=== PATIENT | female | born 1935 | race Caucasian/White ===

== ENCOUNTER → 2017-06-13 12:13 | Outpatient (CLI) | payer MEDICARE, SELFPAY ==
--- NOTE | 2017-06-12 | EGD_PTH ---
PATIENT: CAMILO SRIVASTAVA [facility] U#:[id number] AGE/SX: 89/F ROOM: RE06/13/[address]: Dr. Julio Cohen MD : 1935 BED: DIS: SPEC #: [id number] RECD: 06/13/17 12:06 STATUS: FELICITY OLVIN #: [id number] MARKO: 06/12/17 00:[address]: Julio Cohen DEPT: SURGICAL PATHOLOGY RECD BY: Colt Sanchez ENTERED: 06/13/17 13:50 SP TYPE: EGD BIOPSY OT DR: Dr. Muna Mims MD Tissues: A - Gastric mucous membrane B - Esophageal mucous membrane Procedures: Surgery Specimen Level IV HEADER OPERATION: EGD with biopsy PRE-OP DIAGNOSIS: K30, K21.9 TISSUE SUBMITTED: A ? Antral biopsy H/H, B ? Distal esophageal biopsy MICROSCOPIC DIAGNOSIS A. Gastric antrum, biopsy: Gastritis. B. Distal esophagus, biopsy: Gastroesophageal junction mucosa with chronic inflammation. No evidence of dysplasia. AM:bonifacio 06/14/17 COMMENT A. The results of immunohistochemistry for Helicobacter pylori will be reported separately ([id number]). MICROSCOPIC DESCRIPTION Slides are reviewed. A. Sections show small collections and groups of plasma cells in the mucosa. Active inflammation is not present. These findings are consistent with mild chronic gastritis. GROSS DESCRIPTION A - Received in fixative is one container labeled with the patient's name and designated antral biopsy. The specimen consists of two irregular fragments of light mott soft tissue that in aggregate measure 0.5 x 0.3 x 0.1 cm. The specimen is totally submitted in one cassette. B - Received in fixative is one container labeled with the patient's name and designated distal esophagus biopsy. The specimen consists of one irregular fragment of light mott soft tissue that measures 0.4 x 0.3 x <0.1 cm. The specimen is totally submitted in one cassette. / AM:bonifacio 06/13/17 TC:3 CPT: 18063 x2
--- NOTE | 2017-06-12 | IMM_PTH ---
PATIENT: CAMILO SRIVASTAVA LOC: [facility] U#:[id number] AGE/SX: 89/F ROOM: RE06/13/[address]: Dr. Julio Cohen MD : 1935 BED: DIS: SPEC #: [id number] RECD: 06/14/17 11:14 STATUS: FELICITY REWard #: [id number] MARKO: 06/12/17 00:[address]: Julio Cohen DEPT: IMMUNOHISTOCHEMISTRY RECD BY: Edwina Reyes ENTERED: 06/14/17 11:14 SP TYPE: IMMUNO OTHR DR: Dr. Muna Mims MD Tissues: A - Stomach, NOS Procedures: H Pylori (initial) PHYSICIAN & INSTITUTION [place] [id number] SPECIMEN INFORMATION: Tissue Source: A ? Antral biopsy Clinical Info: K30, K21.9 Specimen Number: [id number] CPT code: 24237 METHODOLOGY: Deparaffinized sections of prefer/formalin-fixed tissue or PAP/DQ stained slides are incubated with monoclonal/polyclonal antibodies/oligonucleotide probes. Localization is made via biotin free immunoperoxidase method. Appropriate controls are performed and reacted as expected. Results on target cell population are indicated in the following table: RESULTS: ANTIBODY / CLONE RESULT Block A H Pylori (polyclonal) negative These tests were developed and their performance characteristics determined by [facility]. They may not have been cleared or approved by the U.S. Food and Drug Administration. The FDA has determined that such clearance or approval is not necessary. INTERPRETATION: A. Antral biopsy: Negative for Helicobacter pylori organisms. AM:bonifacio 06/15/17
== END ==
PROVIDERS: Family Provider Internal Medicine; PCP Internal Medicine; Visit Provider Internal Medicine Gastroenterology
DX: K30 Functional dyspepsia (principal); K21.9 Gastro-esophageal reflux disease without esophagitis
CPT/HCPCS: 88305; 88342

== ENCOUNTER → 2017-08-04 17:28 | Outpatient (CLI) | payer MEDICARE, SELFPAY | PROVIDERS: Visit Provider Otolaryngology | DX: J32.9 Chronic sinusitis, unspecified (principal) | CPT/HCPCS: 87070; 87205 ==

== ENCOUNTER → 2019-02-06 08:34 | Outpatient (CLI) | payer MEDICARE, SELFPAY ==
--- NOTE | 2019-02-06 13:53 | NEURO ---
NCS and/or EMG Patient Report DATE OF SERVICE: 02/06/19 Melanie Zavala is an 83-year-old female presents for electrodiagnostic testing of the lower limbs. She has complaints of numbness in the feet as well as low back pain radiating into the right lower limb. Electrodiagnostic findings: Peroneal motor nerve demonstrates normal distal latency, amplitude and conduction velocity on the right side. Left common peroneal nerve damage there is normal distal latency with normal conduction velocity. There is significant reduction of left peroneal amplitude compared to the right side. Tibial motor responses within normal limits bilaterally. Prolonged sural latency is noted bilaterally. Absent left superficial superficial peroneal response on needle EMG, all muscles tested in the lower limb showed no evidence of denervation with normal motor unit action potentials. No denervation noted in the lumbar paraspinals. Electrodiagnostic impression: This is an abnormal study in the lower limbs. 1. Electrodiagnostic findings suggestive of peripheral polyneuropathy, with primarily sensory involvement. 2. No electrodiagnostic evidence is noted for lumbosacral radiculopathy. If there are any further questions, please do not hesitate to contact me
== END ==
PROVIDERS: Family Provider Internal Medicine; PCP Internal Medicine
DX: G62.9 Polyneuropathy, unspecified (principal); R20.0 Anesthesia of skin; R20.2 Paresthesia of skin
CPT/HCPCS: 95886; 95912

== ENCOUNTER 2019-08-19 21:50 | Inpatient (IN) | payer MEDICARE, SELFPAY ==
[2019-08-19 21:51] VITALS: BP 172/114; PULSE 89; RESP 18; TEMP 37.1; O2SAT 97; BMI 25.6
--- NOTE | 2019-08-19 21:55 | EKG12_ITS ---
Test Reason : DYSRHYTHMIA Blood Pressure : / mmHG Vent. Rate : 085 BPM Atrial Rate : 085 BPM P-R Int : 190 ms QRS Dur : 086 ms QT Int : 358 ms P-R-T Axes : 058 052 036 degrees QTc Int : 426 ms Normal sinus rhythm Septal [place], age undetermined, cannot be excluded Confirmed by CRISTOFER SOTO, JUSTINA ([id number]), editor index NATE BERNARD ([id number]) on 08/21/2019 9:40:17 AM Referred By: ROULA Confirmed By:JUSTINA CLEVELAND MD
--- NOTE | 2019-08-19 21:57 | ED.VIS.CHEST ---
History of Present Illness Chief Complaint: Chest Pain Informant: Patient, EMS Onset: Hours - 2 Activity at onset: Rest - sitting, watching the news on TV after walking to and from a friend's house Timing: Continuous Quality: Pain Location: Substernal - w/ radiation to both arms Current Severity: Gone Maximum Severity: Severe Worsened By: Nothing Relieved By: - - Adenosine 6mg IV given by EMS -- it converted her Associated Symptoms: Diaphoresis, Lightheadedness - without near-syncope or LOC. Negative for: Nausea, Vomiting, Dyspnea, Cough, Palpitations Narrative: Patient lives alone and had acute onset of symptoms about 2 hours ago, chest pain and feeling shaky, she called EMS and they evaluated her, they performed an EKG that showed rapid A. fib and gave the patient adenosine 6 mg after the established IV access, this resulted in cardioversion and resolution of all of her symptoms. She now is asymptomatic except for feeling a little tired. She has never had this happen before does not have a history of A. fib that she knows of. Her scientific informatics project leader Dr. Foss retired and she does not have a new one yet. Her PCP also retired, who was Dr. Muna Mims. She last had a stent over 10 years ago, and is on aspirin and Plavix as a result. She denies any recent illness. 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 No recent surgery, hospitalization, immobilization. - Past Medical History (1) CAD (coronary artery disease) Status: Chronic (2) HTN (hypertension) Status: Chronic (3) Hyperlipidemia Status: Chronic Past Medical History - Allergies and Home Meds Allergies/Adverse Reactions: Allergies meperidine [From Demerol] Adverse Reaction (Verified 08/19/19 21:51) Nausea Primary Care Physician: Gladys Pickett MD [Primary Care Provider] - Surgical History: angioplasty - cardiac stent, last placed circa 2006 Lives: Alone Smoking Status: Never smoker Review of Systems General: Reports: Malaise - and shaky all over, Sweats. Denies: Chills, Fever Eyes: Denies: Visual changes - bilaterally, Diplopia ENT: Denies: Bilateral ear pain, Rhinorrhea, Sore throat Cardiovascular: Reports: Chest pain. Denies: Palpitations, Heart racing Respiratory: Denies: Dyspnea, Cough, Dyspnea on exertion Gastrointestinal: Denies: Abdominal pain, Nausea, Vomiting, Diarrhea, Melena, Hematochezia Genitourinary: Denies: Dysuria, Hematuria, Frequency Musculoskeletal: Reports: Extremity Pain - BUE, resolved now. Denies: Neck pain, Back pain, Swelling Skin: Denies: Rash, Wounds Neurological: Denies: Headache, Weakness, Numbness Physical Exam Vital Signs/Narrative: Vital Signs Temp Pulse Resp BP Pulse Ox 08/19/19 21:51 98.7 F 89 18 172/114 H 97 Inital Vital Signs reviewed: Yes General: Well nourished, Well developed, No Acute Distress Head: Normocephalic, Atraumatic Eyes: Perrl, EOMI ENT: Moist mucous membranes, No rhinorrhea Neck: Supple, Nontender, No JVD Cardiovascular: Regular rate, Regular rhythm, No murmurs. Negative for: Tachycardia Respiratory: No distress, CTA bilaterally, Chest nontender Abdomen: Soft, Nontender, Nondistended, Normal bowel sounds Back: Nontender, Normal Inspection Extremities: Nontender, No edema. Negative for: Calf Tenderness Skin: Normal color, No rash, No Trauma Neurological: Alert, Oriented x3, Cranial nerves II-XII grossly intact, Normal Strength, Normal Sensation Psychological: Normal affect, Normal Mood Diagnostic/Tx/Re-eval Impressions Chest X-Ray 08/19/19 22:18 IMPRESSION: No acute cardiopulmonary pathology Electronically Signed: Balbir Bell MD at 22:36 EDT , Service support , 08/19/19 22:18 Chest 1 View (Portable) [RAD] Stat Laboratory Results 08/19/19 08/19/19 22:00 22:00 WBC 7.4 RBC 4.63 Hgb 14.0 Hct 42.5 MCV 91.8 MCH 30.2 MCHC 32.9 RDW Std Deviation 46.0 H RDW Coeff of Brian 13.6 Plt Count 239 MPV 9.3 Immature Gran % (Auto) 0.500 Neut % (Auto) 62.0 Lymph % (Auto) 28.0 [place] % (Auto) 6.1 Eos % (Auto) 3.1 Baso % (Auto) 0.3 Absolute Neuts (auto) 4.6 Absolute Lymphs (auto) 2.08 Nucleated RBC % 0 Sodium 136 Potassium 3.3 L Chloride 102 Carbon Dioxide 26.0 Anion Gap 8 BUN 18 Creatinine 0.82 Estim Creat Clear Calc 45.68 Est GFR (MDRD) Af Amer 85 Est GFR (MDRD) Non-Af 71 BUN/Creatinine Ratio 21.9 H Glucose 160 H Calcium 9.1 Troponin I 0.098 H - Rhythm Strip Rhythm Strip: Sinus Rhythm Rate: 85 Ectopy: None - EKG Initial EKG Interpretation: Sinus Rhythm, No Acute Injury Pattern - Normal EKG Prior: No Prior Treatment: Aspirin Repeat Eval: Pain Free BOBBY Risk: Age >/= 65, >/= 3RF, H/O CAD, ASA within 7 days, Elevated Enzymes Score: 5 - Medical Decision Making 2 different EMS EKGs were reviewed. The first showed rapid A. fib with no acute injury pattern, the second showed sinus rhythm with a PVC and no acute injury pattern. Paramedics stated that the second 1 was performed after they gave adenosine 6 mg. I discussed with the paramedics and told them that was technically the wrong medication to give, other protocols call for giving it for a narrow complex tachycardia, which technically the patient did have. It is unknown why it resulted in cardioversion, possibilities include the adenosine causing the patient to have a vagal reaction, which in turn caused her to cardiovert, or that her initial rhythm was actually AVNRT intermixed with ectopy. She remained in a sinus rhythm and asymptomatic in the emergency department. The plan is for admission to PCU for continued monitoring and possibly provocative testing, possibly cardiac consultation. She did have a slightly depressed potassium level, she was given some potassium prior to admission. ED Disposition - Plan for ED Patient: Disposition: Acute Care Hospital [facility] Diagnosis: Chest pain, Atrial fibrillation status post cardioversion, Hypokalemia Referrals: Gladys Pickett MD [Primary Care Provider] -
--- NOTE | 2019-08-19 22:07 | ED.RN ---
[facility] ELBA PISANO: [id number]
[2019-08-19 22:09] LABS: Absolute Lymphocyte Count 2.08 X10^3/uL (0.83-4.51); Absolute Neutrophil Count 4.6 X10^3/uL (2.0-7.7); Basophil# 0.02 X10^3/uL; Basophil% 0.3 % (0-1); Eosinophil# 0.23 X10^3/uL; Eosinophils% 3.1 % (0-5); Hematocrit 42.5 % (37-47); Lymphocyte # 2.08 X10^3/ul (4.0); Mean Corp Hgb Conc 32.9 g/dL (32-36); Mean Corpuscular Hgb 30.2 pg (27.0-32.0); Mean Corpuscular Volume 91.8 fL (81-99); Mean Platelet Vol. 9.3 fl (6.2-12.0); Monocyte# 0.45 X10^3/uL; Monocyte% 6.1 % (0-10); NRBC Flagged by Analyzer 0 % (0-5); Neutrophil # 4.61 X10^3/uL (2.7-7.7); Platelet Count 239 K/mm3 (150-450); RBC Distribution Width CV 13.6 % (11.6-14.6); Red Blood Count 4.63 M/mm3 (4.2-5.4); White Blood Count 7.4 K/mm3 (4.4-11.0)
--- NOTE | 2019-08-19 22:18 | RAD_ITS ---
STUDY: X-RAY CHEST REASON FOR EXAM: Female, 83 years old. chest pain, Hx HTN, [place] with stents TECHNIQUE: AP portable COMPARISON: None. FINDINGS: The lungs are clear and expanded. There is no demonstrated pleural abnormality. Normal size heart. Normal mediastinum and yolanda. Normal visualized pulmonary arteries. Normal visualized aortic arch and descending thoracic aorta. Dorsal spine demonstrates mild degenerative change. Normal visualized ribs, clavicles, and shoulders. There is no demonstrated abnormality of the visualized soft tissue structures of the upper abdomen. RAD/Chest 1 View (Portable) IMPRESSION: No acute cardiopulmonary pathology Electronically Signed: Balbir Bell MD at 22:36 EDT , Service support ,
[2019-08-19 22:24] VITALS: O2SAT 96
[2019-08-19] MEDS: 0.9% Normal Saline 1,000 ML 150 ML IV (22:24)
[2019-08-19 22:35] LABS: Anion Gap 8 (5-15); BUN 18 mg/dL (7-18); BUN/Creat Ratio 21.9 RATIO (10-20); Calcium,Total 9.1 mg/dL (8.5-10.1); Chloride 102 mmol/L (98-107); Creatinine, Serum 0.82 mg/dL (0.55-1.02); EST Glomerular Filtration Rate 71 mL/min (>60); Est Glom Filt Rate - Afr Amer 85 mL/min (>60); Estimated Creatinine Clearance 45.68 ml/min; Glucose 160 mg/dL (74-106); Potassium 3.3 mmol/L (3.5-5.1); Sodium Level 136 mmol/L (136-145)
--- NOTE | 2019-08-19 23:01 | PCM.HP.STD ---
Problem List (1) CAD (coronary artery disease) Status: Chronic (2) Chest pain Status: Acute (3) Atrial fibrillation status post cardioversion Status: Acute (4) HTN (hypertension) Status: Chronic (5) Hyperlipidemia Status: Chronic (6) Hypokalemia Status: Acute History of Present Illness Date of Admission: 08/19/19 Chief Complaint: chest pain The patient is a 83 year old female patient with a history of coronary artery disease presents to the emergency room via squad due to chest pain and rapid heart rate. The patient states 2 hours prior she began having chest pain at home while at rest and she took her blood pressure and found it to be 170/110 with a heart rate of 100. She called the squad and they came and found her EKG does show atrial fibrillation with RVR with a heart rate nearly 170. EMS gave her 6 mg of adenosine and the patient responded and is now chest pain-free with a normal heart rate. She has a history of 2 stents placed remotely and her last applications intern was Dr. Foss who she last saw in November. Her last cardiac stress test was greater than 2 years ago she will be admitted for cardiac monitoring and ruling out further coronary artery disease Past Medical History Past Medical History (Chronic Problems): Chronic Problems CAD (coronary artery disease) (Chronic) HTN (hypertension) (Chronic) Hyperlipidemia (Chronic) Allergies meperidine [From Demerol] Adverse Reaction (Verified 08/19/19 21:51) Nausea Home Medications: Ambulatory Orders Medication Instructions Recorded Atorvastatin Calcium 40 mg PO DAILY 08/19/19 Clopidogrel Bisulfate [Clopidogrel] 75 mg PO DAILY 08/19/19 Eszopiclone [Lunesta] 1 mg PO QHS PRN PRN 08/19/19 Gabapentin [Neurontin] 300 mg PO BID 08/19/19 Gabapentin [Neurontin] 600 mg PO QHS 08/19/19 Hydrochlorothiazide [Hctz] 25 mg PO DAILY 08/19/19 Losartan Potassium 50 mg PO BID 08/19/19 Metoprolol Tartrate 50 mg PO BID 08/19/19 Pramipexole Di-HCl [Mirapex] 0.25 mg PO BID PRN PRN 08/19/19 Sertraline HCl [Zoloft] 50 mg PO DAILY 08/19/19 Sucralfate [Carafate] 1 tab PO PRN PRN 08/19/19 Tramadol HCl 50 mg PO BID PRN PRN 08/19/19 Surgical History: angioplasty - cardiac stent, last placed circa 2006 Lives: Alone Smoking Status: Never smoker - *Family History Maternal History Items: No pertinent history Review of Systems Constitutional: Denies: Chills, Fever, Weight Change HEENT: Denies: Head Aches, Sinus Congestion, Sinus Drainage Cardiovascular: Reports: Chest Pain. Denies: Palpitations Respiratory: Denies: Cough, Shortness of breath at rest, Sputum production Gastrointestinal: Denies: Abdominal Pain, Nausea, Vomiting Genitourinary: Denies: Dysuria Musculoskeletal: Denies: Joint Pain, Joint Tenderness Skin: Denies: Rash, Wounds Neurological: Denies: Numbness, Tingling, Focal weakness Psychiatric: Denies: Anxiety, Depression, Homicidal Ideations, Suicidal Ideations Hematologic/ Lymphatic: Denies: Easy Bruising, Easy Bleeding VTE Information - Inpt Only VTE Present on Admission: No VTE Mechan Device Prophylaxis: None VTE Pharm Prophylaxis ordered?: Yes Patient Problems: Active and Suspected Problems Chest pain (Acute) Atrial fibrillation status post cardioversion (Acute) Hypokalemia (Acute) - Physical Exam Vitals/I&O's: Vital Signs Temp Pulse Resp BP Pulse Ox 98.7 F 89 18 172/114 H 96 08/19/19 21:51 08/19/19 21:51 08/19/19 21:51 08/19/19 21:51 08/19/19 22:24 Oxygen Delivery Method Room Air Weight: 149 lb 4.047 oz Body Mass Index (BMI) 25.6 General: Alert, Oriented x3, Cooperative HEENT: Atraumatic, Normocephalic Neck: Supple Lungs: Clear to auscultation, Normal air movement, No rhonchi, No wheeze, No rales Cardiovascular: Regular rate, Normal S1, Normal S2, No murmurs Abdomen: Bowel Sounds Present, Soft, Non Tender Extremities: No edema Skin: No rashes, No breakdown Musculoskeletal: No Tenderness to Palpation of Joints or Extremities Neurological: Neuro grossly intact Psych/Mental Status: Normal Affect, Appropriate Laboratory Results 08/19/19 22:00: WBC 7.4, RBC 4.63, Hgb 14.0, Hct 42.5, MCV 91.8, MCH 30.2, MCHC 32.9, RDW Std Deviation 46.0 H, RDW Coeff of Brian 13.6, Plt Count 239, MPV 9.3, Immature Gran % (Auto) 0.500, Neut % (Auto) 62.0, Lymph % (Auto) 28.0, [place] % (Auto) 6.1, Eos % (Auto) 3.1, Baso % (Auto) 0.3, Absolute Neuts (auto) 4.6, Absolute Lymphs (auto) 2.08, Nucleated RBC % 0 08/19/19 22:00: Sodium 136, Potassium 3.3 L, Chloride 102, Carbon Dioxide 26.0, Anion Gap 8, BUN 18, Creatinine 0.82, Estim Creat Clear Calc 45.68, Est GFR (MDRD) Af Amer 85, Est GFR (MDRD) Non-Af 71, BUN/Creatinine Ratio 21.9 H, Glucose 160 H, Calcium 9.1, Troponin I 0.098 H Current Medications Sodium Chloride () 1,000 mls @ 150 mls/hr IV .Q6H40M [facility] Last Admin: 08/19/19 22:24 Dose: 150 mls/hr Documented by: Assessment/Plan All Active Problems Chest pain (Acute) Atrial fibrillation status post cardioversion (Acute) Hypokalemia (Acute) Chronic Problems CAD (coronary artery disease) (Chronic) HTN (hypertension) (Chronic) Hyperlipidemia (Chronic) Plan 1. Chest pain rule out CT?morphine, oxygen, nitroglycerin, aspirin per routine protocol, set up nuclear exercise stress test in the a.m. if unable to proceed on treadmill she will be changed to pharmacologic stress test. 2. Atrial fibrillation with RVR?this converted with adenosine we will continue to monitor on the progressive care unit 3. Hypertension?continue home medications 4. Hyperlipidemia?continue statin 5. DVT prophylaxis?low molecular weight heparin 6. Insomnia?continue sleeping pill from home Inpatient E&M: [id number] Init Hosp L3
[2019-08-19 23:33] VITALS: BP 114/86; PULSE 68; RESP 16; TEMP 36.7; O2SAT 95
[2019-08-19 23:50] VITALS: BP 144/71; PULSE 70; RESP 16; TEMP 36.7; O2SAT 99
[2019-08-19 23:57] VITALS: PULSE 64
[2019-08-20] VITALS (20 sets, daily range): BP systolic 120–170; BP diastolic 56–105; PULSE 56–75; RESP 12–18; TEMP 36.4–36.7; O2SAT 93–97; BMI 25.3
[2019-08-20] MEDS: Sucralfate 1 GM Tablet PO ×2 (01:20→16:04)
[2019-08-20] MEDS: Zolpidem Tartrate 5 MG Tablet PO ×2 (01:20→22:30)
--- NOTE | 2019-08-20 01:22 | EKG12_ITS ---
Test Reason : CP ADMISSION Blood Pressure : / mmHG Vent. Rate : 060 BPM Atrial Rate : 060 BPM P-R Int : 168 ms QRS Dur : 088 ms QT Int : 414 ms P-R-T Axes : 059 039 013 degrees QTc Int : 414 ms Normal sinus rhythm Nonspecific T wave abnormality Confirmed by CRISTOFER SOTO, JUSTINA ([id number]), editor index NATE BERNARD ([id number]) on 08/21/2019 9:52:17 AM Referred By: ERIC Confirmed By:JUSTINA CLEVELAND MD
[2019-08-20 04:46] LABS: Absolute Lymphocyte Count 2.27 X10^3/uL (0.83-4.51); Absolute Neutrophil Count 3.9 X10^3/uL (2.0-7.7); Basophil# 0.02 X10^3/uL; Basophil% 0.3 % (0-1); Eosinophil# 0.26 X10^3/uL; Eosinophils% 3.8 % (0-5); Hematocrit 36.9 % (37-47); Lymphocyte # 2.27 X10^3/ul (4.0); Lymphocyte % 32.8 % (19-41); Mean Corp Hgb Conc 32.5 g/dL (32-36); Mean Corpuscular Hgb 29.8 pg (27.0-32.0); Mean Corpuscular Volume 91.6 fL (81-99); Mean Platelet Vol. 9.4 fl (6.2-12.0); Monocyte# 0.41 X10^3/uL; Monocyte% 5.9 % (0-10); NRBC Flagged by Analyzer 0 % (0-5); Neutrophil # 3.94 X10^3/uL (2.7-7.7); Neutrophil % 56.8 % (47-70); Platelet Count 225 K/mm3 (150-450); RBC Distribution Width CV 13.4 % (11.6-14.6); RBC Distribution Width SD 45.5 fl (35.1-43.9); Red Blood Count 4.03 M/mm3 (4.2-5.4); White Blood Count 6.9 K/mm3 (4.4-11.0)
[2019-08-20 04:57] LABS: Prothrombin Time (Protime)PT. 12.8 SECONDS (11.7-14.9)
[2019-08-20] MEDS: Losartan Potassium 50 MG Tablet PO ×2 (06:22→22:28)
[2019-08-20] MEDS: Aspirin E.C. 81 MG Tablet PO (06:23)
[2019-08-20] MEDS: Metoprolol Tartrate 50 MG Tablet PO ×2 (06:23→22:28)
[2019-08-20] MEDS: Clopidogrel Bisulfate 75 MG Tablet PO (06:23)
[2019-08-20] MEDS: Gabapentin 300 MG Capsule PO ×2 (06:23→14:42)
[2019-08-20 06:35] LABS: ALB/GLOB Ratio 1.1 RATIO (0.9-2.4); AST(SGOT) 28 U/L (15-37); Alanine Aminotransfer ALT/SGPT 24 U/L (13-56); Albumin, Serum 3.4 g/dL (3.2-5.0); Alkaline Phosphatase 89 U/L (45-117); Anion Gap 8 (5-15); BUN 16 mg/dL (7-18); Calcium,Total 8.2 mg/dL (8.5-10.1); Chloride 103 mmol/L (98-107); Cholesterol 124 mg/dL (200); Creatinine, Serum 0.73 mg/dL (0.55-1.02); EST Glomerular Filtration Rate 82 mL/min (>60); Est Glom Filt Rate - Afr Amer 99 mL/min (>60); Estimated Creatinine Clearance 35.88 ml/min; Glucose 94 mg/dL (74-106); High Density Lipoprotein 30 mg/dL; Protein, Total 6.4 g/dL (6.4-8.2); Sodium Level 135 mmol/L (136-145); Triglycerides 246 mg/dL; Very Low Density Lipoprotein 49 mg/dL (5-40)
--- NOTE | 2019-08-20 07:27 | ECHOD_ITS ---
Reason For Study: NSTEMI Procedure This was a 2D Doppler, Color Flow transthoracic echocardiogram. The study was technically difficult. Exam performed portable in patient room. Left Ventricle Normal LV size. Segmental dysfunction with preserved ejection fraction (see wall motion). The estimated ejection fraction is 65 %. Infero-Basal: Hypokinetic. Mid-inferoseptal : Akinetic. Mid- anteroseptal : Hypokinetic. Inferior [place] : Hypokinetic. Septal [place] : Akinetic. Right Ventricle Normal RV size. Normal systolic function. Atria The left atrium is mildly enlarged. Normal right atrium. No doppler evidence for ASD. Mitral Valve There is mild mitral annular calcification. Extension of the mitral annular calcification onto the base of the posterior mitral valve leaflert. Mild focal mitral valve calcification of the anterior leaflet. Moderate (2+) mitral valve insufficiency. Tricuspid Valve Normal tricuspid valve. Mild to moderate (1-2+) tricuspid valve insufficiency. Right ventricular systolic pressure estimated to be 55 mmHg. Aortic Valve Trisinus/trileaflet aortic valve. Normal aortic valve. Pulmonic Valve The pulmonic valve is not well visualized. Trivial pulmonic valve insufficiency. Great Vessels Normal sized aortic root. Pericardium/Pleural No pericardial effusion. MMode/2D Measurements & Calculations LVIDd: 4.0 cm IVSd: 1.0 cm Ao root diam: 2.4 cm LVIDs: 2.6 cm LVPWd: 1.0 cm RVDd: 2.8 cm FS: 34.0 % LAV(MOD-bp): 65.6 ml LVAd ap4: 21.3 cm2 SV(MOD-sp4): 40.4 ml LAV(MOD-bp) Indexed: 39.1 ml/m2 EDV(MOD-sp4): 53.2 ml LAV(MOD-sp2): 64.0 ml EDV(sp4-el): 56.0 ml LAV(MOD-sp4): 66.9 ml LVAs ap4: 9.2 cm2 ESV(MOD-sp4): 12.8 ml ESV(sp4-el): 12.8 ml EF(MOD-sp4): 76.0 % EF(sp4-el): 77.1 % SV(sp4-el): 43.2 ml LA A4 area: 21.2 cm2 LA dimension(2D): 4.4 cm RA A4 area: 11.2 cm2 Time Measurements MV dec time: 0.20 sec Doppler Measurements & Calculations MV E max kishan: 121.2 cm/sec Ao V2 max: 139.8 cm/sec LV V1 max: 122.1 cm/sec MV A max kishan: 68.0 cm/sec Ao max P.8 mmHg LV V1 max P.0 mmHg MV E/A: 1.8 PA V2 max: 84.5 cm/sec PI end-d kishan: 140.3 cm/sec TR max kishan: 362.1 cm/sec TR max P.4 mmHg Interpretation Summary The study was technically difficult. Segmental dysfunction with preserved ejection fraction (see wall motion). The estimated ejection fraction is 65 %. The left atrium is mildly enlarged. There is mild mitral annular calcification. Extension of the mitral annular calcification onto the base of the posterior mitral valve leaflert. Mild focal mitral valve calcification of the anterior leaflet. Moderate (2+) mitral valve insufficiency. Mild to moderate (1-2+) tricuspid valve insufficiency. Trivial pulmonic valve insufficiency. Right ventricular systolic pressure estimated to be 55 mmHg. Transmitral diastolic flow velocities suggest diastolic dysfunction (pseudonormal pattern). Ordering Physician: Dory Augustine Referring Physician: DANIELA REINOSO Performed By: Luanne Rosa, RDCS, RVT
[2019-08-20] MEDS: Sertraline 50 MG Tablet PO (08:56)
[2019-08-20] MEDS: hydroCHLOROthiazide 25 MG Tablet PO (08:56)
--- NOTE | 2019-08-20 10:28 | PCM.CONS.C ---
Problem List (1) NSTEMI (non-ST elevated myocardial infarction) Status: Acute (2) CAD (coronary artery disease) Status: Chronic (3) S/P PTCA (percutaneous transluminal coronary angioplasty) Status: Acute (4) Atrial fibrillation status post cardioversion Status: Acute (5) Hyperlipidemia Status: Chronic (6) HTN (hypertension) Status: Chronic Reason for Consult Date of Consultation: 08/20/19 History of Present Illness: The patient is a 83 year old white female with a past medical history of CAD, PCI, CA, hyperlipidemia, and hypertension who presents for evaluation of findings compatible with an acute non-ST segment elevation CA and paroxysmal atrial fibrillation. She states she has been doing well at home until yesterday evening. She noted chest discomfort that radiated to her left upper extremity and was associated with diaphoresis and the sensation of an elevated heart rate. She denied nausea, emesis, or dyspnea. The EMS was summoned. She was evaluated and had an ECG thought compatible with atrial fibrillation with RVR. She was treated with IV adenosine. Sometime thereafter she had resolution of her cardiac dysrhythmia back to sinus rhythm. The transition from the report of atrial fibrillation to sinus rhythm, and the way of telemetry strips, is unavailable at this time for review. She was evaluated in the emergency department and subsequently placed in the PCU for ongoing evaluation and care. She states she has been resting comfortably. She has been undergoing cardiac enzyme evaluation which has become abnormal compatible with an acute non-ST segment elevation CA. Her ECG demonstrated what appeared to be atrial fibrillation with associated nonspecific ST and T wave changes with subsequent ECG demonstrating sinus rhythm with PVCs with nonspecific ST changes with a subsequent ECG demonstrating sinus rhythm. She states she underwent evaluation and care for her CAD in the . At that time she was told she had an CA but did not receive any revascularization therapy. She notes somewhere between 1999 and 2009 she underwent evaluation for her CAD through the [facility] system. During that timeframe she states she received PCI. The details of her previous cardiovascular history are unknown. 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 She denies any ongoing orthopnea or PND or peripheral pitting edema. There has been no near syncope or syncope. She denies any fever, chills, night sweats, or other associated respiratory related symptoms at this time. States she has been remaining home by herself. [] Past Medical History Allergies/Adverse Reactions: Allergies meperidine [From Demerol] Adverse Reaction (Verified 08/19/19 21:51) Nausea Home Medications: Ambulatory Orders Medication Instructions Recorded Atorvastatin Calcium 40 mg PO DAILY 08/19/19 Clopidogrel Bisulfate [Clopidogrel] 75 mg PO DAILY 08/19/19 Eszopiclone [Lunesta] 1 mg PO QHS PRN PRN 08/19/19 Gabapentin [Neurontin] 300 mg PO BID 08/19/19 Gabapentin [Neurontin] 600 mg PO QHS 08/19/19 Hydrochlorothiazide [Hctz] 25 mg PO DAILY 08/19/19 Losartan Potassium 50 mg PO BID 08/19/19 Metoprolol Tartrate 50 mg PO BID 08/19/19 Pramipexole Di-HCl [Mirapex] 0.25 mg PO BID PRN PRN 08/19/19 Sertraline HCl [Zoloft] 50 mg PO DAILY 08/19/19 Sucralfate [Carafate] 1 tab PO PRN PRN 08/19/19 Tramadol HCl 50 mg PO BID PRN PRN 08/19/19 Past Medical History (Chronic Problems): Chronic Problems CAD (coronary artery disease) (Chronic) HTN (hypertension) (Chronic) Hyperlipidemia (Chronic) Surgical History: angioplasty - cardiac stent, last placed circa 2006 - *Family History Maternal History Items: No pertinent history Lives: Alone Smoking Status: Never smoker Alcohol: None Drugs: None Review of Systems - Review of Systems General: Denies: Fever, Night Sweats, Fatigue Cardiovascular: Reports: Chest Discomfort, Chest Discomfort at Rest, - - Diaphoresis. Denies: Shortness of Breath, Orthopnea, PND, Peripheral Edema, Palpitations, Lightheadedness, Dizziness, Near Syncope, Syncope Respiratory: Denies: Cough, Sputum Production, Hemoptysis Gastrointestinal: Denies: Hematemesis, Hematochezia, Melena Genitourinary: Denies: Dysuria, Hematuria Skin: Denies: Rash Subjectve: This is an 83-year-old white female who appears to be resting comfortably in the supine position at this time in no acute distress. Objective: Vital Signs Temp Pulse Resp BP Pulse Ox 97.8 F 56 L 16 120/58 L 96 08/20/19 05:50 08/20/19 06:39 08/20/19 05:50 08/20/19 05:50 08/20/19 07:50 Oxygen Delivery Method Room Air Weight: 143 lb Body Mass Index (BMI) 25.3 Intake and Output for Last 24 Hours 08/18/19 08/19/19 08/20/19 23:59 23:59 23:59 Intake Total 120 / 120 1120 / 1120 Balance 120 / 120 1120 / 1120 General: Awake, Alert, Oriented x 3, Cooperative, No Acute Distress HEENT: Atraumatic, Normocephalic, PERRL, EOMI, Sclera Non Icteric Oral: Moist Mucosa Neck: Supple, Good ROM, No JVD Lungs: Clear to auscultation Cardiovascular: Regular Rhythm, Normal S1, Normal S2 Vascular: No Carotid Bruits Abdomen: Bowel Sounds Present, Soft, Non Tender Extremities: No Cyanosis, No Clubbing, No edema Neurological: No Focal Motor or Sensory Deficit Psych/Mental Status: Appropriate 08/19/19 22:00: WBC 7.4, RBC 4.63, Hgb 14.0, Hct 42.5, MCV 91.8, MCH 30.2, MCHC 32.9, Plt Count 239, MPV 9.3, Immature Gran % (Auto) 0.500, Neut % (Auto) 62.0, Lymph % (Auto) 28.0, [place] % (Auto) 6.1, Eos % (Auto) 3.1, Baso % (Auto) 0.3, Absolute Neuts (auto) 4.6, Nucleated RBC % 0 08/19/19 22:00: Sodium 136, Potassium 3.3 L, Chloride 102, Carbon Dioxide 26.0, Anion Gap 8, BUN 18, Creatinine 0.82, Est GFR (MDRD) Af Amer 85, Est GFR (MDRD) Non-Af 71, BUN/Creatinine Ratio 21.9 H, Glucose 160 H, Calcium 9.1, Troponin I 0.098 H 08/20/19 00:52: Troponin I 0.803 H* 08/20/19 04:28: WBC 6.9, RBC 4.03 L, Hgb 12.0, Hct 36.9 L, MCV 91.6, MCH 29.8, MCHC 32.5, Plt Count 225, MPV 9.4, Immature Gran % (Auto) 0.400, Neut % (Auto) 56.8, Lymph % (Auto) 32.8, Fleming % (Auto) 5.9, Eos % (Auto) 3.8, Baso % (Auto) 0.3, Absolute Neuts (auto) 3.9, Nucleated RBC % 0 08/20/19 04:28: PT 12.8, INR 1.0 08/20/19 04:28: Sodium 135 L, Potassium 4.0, Chloride 103, Carbon Dioxide 24.0, Anion Gap 8, BUN 16, Creatinine 0.73, Est GFR (MDRD) Af Amer 99, Est GFR (MDRD) Non-Af 82, BUN/Creatinine Ratio 22.0 H, Glucose 94, Calcium 8.2 L, Total Bilirubin 0.30, Troponin I 1.380 H*, Triglycerides 246 H, Cholesterol 124, LDL Cholesterol 45, VLDL Cholesterol 49 H, HDL Cholesterol 30 L Rhythm: Sinus rhythm EKG: As noted above ECHO: Pending CXR: Preliminary evaluation: No acute cardiopulmonary disease process appreciated: Please see official report Assessment/Plan 1. Acute non-ST segment elevation CA The patient presents with clinical symptoms and objective findings compatible with an acute non-ST segment elevation CA. This is superimposed upon a history of CAD and previous CA and previous PCI. Thus far she has had no other explanation for her symptoms or cardiac enzyme findings. At the moment she appears to be symptomatically improved. She will continue to be observed. She will continue medical therapy as deemed appropriate. It has been recommended that she be considered for further evaluation with diagnostic cardiac catheterization. The procedure and risks have been discussed with her. She is agreeable to this approach. 2. CAD status post PCI The patient has a previous history of CAD and PCI. The details are unknown at this time. A request has been made to obtain copies of her previous [facility] cardiovascular records for review. In the interim she will continue evaluation care as noted above. 3. Paroxysmal atrial fibrillation She had an episode of paroxysmal atrial fibrillation. It is unclear whether this was secondary to her acute coronary syndrome event or potentially prior to her acute coronary syndrome event leading to a type II type event. She received IV adenosine. However its unclear that her IV adenosine had any impact on her atrial dysrhythmia. Her atrial dysrhythmia may have spontaneously converted. At the moment she remains in sinus rhythm. She will continue medical management and follow-up as deemed appropriate. 4. Hyperlipidemia She will continue risk factor evaluation care as deemed appropriate. 5. Hypertension Her blood pressure will be followed. Her medicines will be adjusted as needed. Comment: The patient's case was discussed and reviewed with the patient and via telephone with her son-in-law Mervin and her daughter Megan. All parties were in agreement with the aforementioned evaluation and care plan. This note was generated using a voice recognition system and there may be incorrect words, spelling or punctuation that were not noted when reviewing the office note prior to saving. Essential Procedure Criteria Procedure Essential: Yes Criteria Note: On 07/16/2019 the [facility] ([facility]) Public Order signed by [facility] Director Brooklyn Anand M.D., regarding the Management of Non-Essential Surgeries and Procedures for the purpose of preserving Personal Protective Equipment (PPE) and critical hospital capacity and resources within [place] went into effect as of 07/17/2019 at 5:00PM. According to the [facility] Public Order: This action will remain in full force and effect until the State of Emergency declared by the Governor no longer exists or the Director of the [facility] rescinds or modifies this Order.. This [facility] order stated all non-essential or elective surgeries and procedures that utilize PPE should be delayed unless there is undue risk to the current or future health of a patient. After reviewing the aforementioned [facility] Public Order and the patients clinical case, I have determined that the scheduled procedure meets the criteria to go forward. Risk to Patient if Procedure Delayed: Threat of permanent dysfunction of an extremity or organ system - Acute non-ST segment elevation CA
--- NOTE | 2019-08-20 10:43 | PCM.PN.HOSP ---
Patient Problems: Active and Suspected Problems Chest pain (Acute) Atrial fibrillation status post cardioversion (Acute) Hypokalemia (Acute) NSTEMI (non-ST elevated myocardial infarction) (Acute) S/P PTCA (percutaneous transluminal coronary angioplasty) (Acute) Subjective: Patient seen and examined. She was admitted with a complaint of chest pain and rapid heart rate. When EMS arrived at her location, she was found to have A. fib with RVR with heart rate of 170. Even though her heart rhythm was supposedly Afib, she was given adenosine to which she responded, and chest pain also resolved. Troponins peaked at 1.38. She is therefore being managed for non-STEMI. Cardiology is on board and she is to have cardiac cath. Patient had no complaints this morning. Chest pain had resolved. She denied any fever, chills, nausea, vomiting, abdominal, diarrhea or palpitations. Review of systems is otherwise negative. Labs and vitals reviewed. Vitals are significant for HR of 56. Vitals/I&O's: Vital Signs Temp Pulse Resp BP Pulse Ox 97.8 F 56 L 16 120/58 L 96 08/20/19 05:50 08/20/19 06:39 08/20/19 05:50 08/20/19 05:50 08/20/19 07:50 Oxygen Delivery Method Room Air Weight: 143 lb Body Mass Index (BMI) 25.3 Intake and Output for Last 24 Hours 08/18/19 08/19/19 08/20/19 23:59 23:59 23:59 Intake Total 120 / 120 1120 / 1120 Balance 120 / 120 1120 / 1120 General: Alert, Oriented x3, Cooperative HEENT: Atraumatic, PERRLA, EOMI, Normocephalic Oral: Moist Mucosa Neck: Supple, No JVD, Negative Carotid Bruits, No Nodes Lungs: Clear to auscultation, Normal air movement, No rhonchi, No wheeze Cardiovascular: Regular rate, Regular Rhythm, Normal S1, Normal S2, No murmurs Abdomen: Bowel Sounds Present, Soft, Non Tender, Non-Distended, No Hepato-splenomegaly Extremities: No clubbing, No cyanosis, No edema, Capillary Refill Less than 3 Seconds Skin: No rashes, No breakdown Musculoskeletal: No Tenderness to Palpation of Joints or Extremities Lymphatic: Supraclavicular Adenopathy Neurological: Cranial nerves II-XII grossly intact, Neuro grossly intact, Motor Exam 5/5 strength throughout Psych/Mental Status: Normal Affect, Appropriate, Alert and oriented to time, place, person, mood and affect Laboratory Results 08/19/19 22:00: WBC 7.4, RBC 4.63, Hgb 14.0, Hct 42.5, MCV 91.8, MCH 30.2, MCHC 32.9, RDW Std Deviation 46.0 H, RDW Coeff of Brian 13.6, Plt Count 239, MPV 9.3, Immature Gran % (Auto) 0.500, Neut % (Auto) 62.0, Lymph % (Auto) 28.0, [place] % (Auto) 6.1, Eos % (Auto) 3.1, Baso % (Auto) 0.3, Absolute Neuts (auto) 4.6, Absolute Lymphs (auto) 2.08, Nucleated RBC % 0 08/19/19 22:00: Sodium 136, Potassium 3.3 L, Chloride 102, Carbon Dioxide 26.0, Anion Gap 8, BUN 18, Creatinine 0.82, Estim Creat Clear Calc 45.68, Est GFR (MDRD) Af Amer 85, Est GFR (MDRD) Non-Af 71, BUN/Creatinine Ratio 21.9 H, Glucose 160 H, Calcium 9.1, Troponin I 0.098 H 08/20/19 00:52: Troponin I 0.803 H* 08/20/19 04:28: WBC 6.9, RBC 4.03 L, Hgb 12.0, Hct 36.9 L, MCV 91.6, MCH 29.8, MCHC 32.5, RDW Std Deviation 45.5 H, RDW Coeff of Brian 13.4, Plt Count 225, MPV 9.4, Immature Gran % (Auto) 0.400, Neut % (Auto) 56.8, Lymph % (Auto) 32.8, [place] % (Auto) 5.9, Eos % (Auto) 3.8, Baso % (Auto) 0.3, Absolute Neuts (auto) 3.9, Absolute Lymphs (auto) 2.27, Nucleated RBC % 0 08/20/19 04:28: PT 12.8, INR 1.0 08/20/19 04:28: Sodium 135 L, Potassium 4.0, Chloride 103, Carbon Dioxide 24.0, Anion Gap 8, BUN 16, Creatinine 0.73, Estim Creat Clear Calc 35.88, Est GFR (MDRD) Af Amer 99, Est GFR (MDRD) Non-Af 82, BUN/Creatinine Ratio 22.0 H, Glucose 94, Calcium 8.2 L, Total Bilirubin 0.30, AST 28, ALT 24, Alkaline Phosphatase 89, Troponin I 1.380 H*, Total Protein 6.4, Albumin 3.4, Globulin 3.0, Albumin/Globulin Ratio 1.1, Triglycerides 246 H, Cholesterol 124, LDL Cholesterol 45, VLDL Cholesterol 49 H, HDL Cholesterol 30 L Current Medications Aspirin (Ecotrin) 81 mg PO DAILY@0800 [facility] Last Admin: 08/20/19 06:23 Dose: 81 mg Documented by: Atorvastatin Calcium (Lipitor) 40 mg PO DAILY@2200 [facility] Clopidogrel Bisulfate (Plavix) 75 mg PO DAILY [facility] Last Admin: 08/20/19 06:23 Dose: 75 mg Documented by: Enoxaparin Sodium (Lovenox) 40 mg SC DAILY [facility] Last Admin: 08/20/19 08:55 Dose: Not Given Documented by: Gabapentin (Neurontin) 300 mg PO BID@0600,1400 [facility] Last Admin: 08/20/19 06:23 Dose: 300 mg Documented by: Gabapentin (Neurontin) 600 mg PO QHS [facility] Hydrochlorothiazide (Hctz) 25 mg PO DAILY [facility] Last Admin: 08/20/19 08:56 Dose: 25 mg Documented by: Losartan Potassium (Cozaar) 50 mg PO BID [facility] Last Admin: 08/20/19 06:22 Dose: 50 mg Documented by: Metoprolol Tartrate (Lopressor (Beta Florinda)) 50 mg PO BID [facility] Last Admin: 08/20/19 06:23 Dose: 50 mg Documented by: Morphine Sulfate () 2 mg IV Q3H PRN PRN PRN Reason: Pain Score 6-10/10 Nitroglycerin (Nitrostat) 0.4 mg SUBLINGUAL Q5M PRN PRN Reason: CARDIAC/CHEST PAIN Pramipexole Dihydrochloride (Mirapex) 0.25 mg PO BID PRN PRN PRN Reason: SCIATICA Sertraline HCl (Zoloft) 50 mg PO DAILY [facility] Last Admin: 08/20/19 08:56 Dose: 50 mg Documented by: Sodium Chloride () 10 - 40 ml IV UD PRN PRN Reason: SALINE FLUSH Sucralfate (Carafate) 1 gm PO 1HR_ACHS ROBERT Last Admin: 08/20/19 01:20 Dose: 1 gm Documented by: Tramadol HCl (Ultram) 50 mg PO BID PRN PRN PRN Reason: PAIN 1-02/07 Zolpidem Tartrate (Ambien (Generic)) 5 mg PO QHS PRN PRN PRN Reason: for sleep Last Admin: 08/20/19 01:20 Dose: 5 mg Documented by: STROKE Vital Signs/Narrative: Vital Signs Pulse Ox 08/20/19 07:50 96 Medical Necessity - Tobacco Use Smoking Status: Never smoker Assessment/Plan All Active Problems Chest pain (Acute) Atrial fibrillation status post cardioversion (Acute) Hypokalemia (Acute) NSTEMI (non-ST elevated myocardial infarction) (Acute) S/P PTCA (percutaneous transluminal coronary angioplasty) (Acute) 1. Nonstemi troponins trended up to a peak of 1.38 EKG showed no acute ST changes on IV morphine, SL nitroglycerin and PO aspirin. for cardiac cath today. On high intensity statin. On aspirin, Plavix and metoprolol as well as statin. 2. Afib wtih RVR Received adenosine which helped converted sinus rhythm. It is therefore doubtful that she really had A. fib with RVR as this converted with adenosine and so may have been more of a sinus tachycardia. Cardiology on board. On metoprolol 50 mg twice daily. 3. Hypertension: On HCTZ, losartan and metoprolol. 4. Hyperlipidemia: On statin. 5. Insomnia: On Ambien nightly. DVT prophylaxis: Lovenox Inpatient E&M: 60715 [facility] Hosp L3
--- NOTE | 2019-08-20 11:58 | PCA ---
pt off floor
--- NOTE | 2019-08-20 12:56 | CL.I_ITS ---
Patient Name: CAMILO SRIVASTAVA Study Date: 08/20/2019 Performing: Brigida Castro MD Ht: 63 inches 160 cm : 1935 Wt: 143.5 lbs 65 kg Age: 83 Gender: female BSA: 1.68 PROCEDURE(S) PERFORMED [id number] W OR WO PTCA, SINGLE CORONARY ARTERY CLINICAL PROFILE AND CO-MORBIDITIES Indications: Suspected CAD, ACS <= 24 hrs Heart Failure: None Angina Classification Anginal Classification w/in 2 Weeks: CCS IV CAD Presentations: Non-STEMI. CONCLUSIONS Successful PTCA/LIZBETH to oLCx RECOMMENDATIONS Follow up with Dr. Mireya MCCALL Indefinitley Plavix for at least 12 months DESCRIPTION OF PROCEDURE The patient arrived to the procedure lab. The risks and benefits of the procedure as well as a full d escription of our services here and current unavailability of surgical backup were fully explained to the patient and/or their significant other prior to the catheterization. The Timeout was completed, verifying the correct patient and procedure. The patient's procedural site was prepped and draped in the usual fashion. Local anesthetic was given subcutaneously to right radial region with Lidocaine 2% Using a modified Seldinger technique,arterial access was obtained via the right radial artery, a 6Fr sheath was inserted. Left Coronary Artery selective angiography was performed in multiple views usin g a 5 Fr. 4.0 Mckinney catheter. Right Coronary Artery selective angiography was then performed in multi ple views using a 5 Fr. 4.0 Mckinney catheter. Left Ventriculography was performed in AGUILAR projection usi ng a 5 Fr. Pigtail catheter. LV to AO pullback pressures were then recorded.The images were reviewed and options discussed. A decision was then made to proceed with an Intervention, IVUS o r other adjunct procedure. XB 3.0 Guide catheter was inserted and engaged into the LCA. BMW Guide wire was advanced to the C ircumflex. Angiogram performed pre balloon dilatation. 2.5x12 Emerge Balloon catheter was advanced ac ross lesion in the circumflex, ostial. PTCA balloon inflated at 6 atms for 8 secs. PTCA balloon infla lesley at 8 atms for 25 secs. PTCA balloon inflated at 8 atms for 40 secs. 3.5x12 Synergy Drug Eluting s tent was advanced across the lesion in the circumflex, ostial. Angiogram performed pre stent deployme nt. Angiogram performed post stent deployment. 3.5x8 NC Emerge Balloon catheter was inserted post jailyn nt. PTCA balloon inflated at 18 atms for 23 secs. Angiogram performed post balloon dilatation. The arterial sheath was pulled and a TR Band was applied for hemostasis-12cc INTERVENTION INFORMATION LESION SITE: Circumflex (Ostial) Lesion Complexity: High/C, chronic total occlusion: No, lesion at bifurcation: Yes, thrombus present: No, lesion length: 10 mm, culprit lesion: Yes, Previously treated lesion: No, In-stent restenosis: N o Pre Stenosis: 90 % Pre intervention BOBBY flow: 3 PROCEDURE: Drug Eluting Stent with pre and post dilatation Post Stenosis: 0 % Post intervention BOBBY flow: 3 Lesion Devices: Cardinal 6 Fr XB3.0 100cm Guide Catheter Marte .014 BMW [place] Straight 190cm Nicholas Sci EMERGE MR 2.50x12 BALLOON Nicholas Sci Synergy MR LIZBETH 3.50x12 Nicholas Sci NC EMERGE MR 3.50x08 BALLOON COMPLICATIONS No Complications PROCEDURE MEDICATIONS Versed 1 mg IV Fentanyl 50 mcg IV Oxygen: 2 L/min via nasal cannula Heparin diluted in 23cc Heparinized saline. Patient given 10cc IA of this solution. 08/20/2019 11:35: 31 Heparin 4000 unit(s) IV 08/20/2019 12:09:03 Verapamil 2.5mg, Ntg 100mcgs, 2000 units of Heparin diluted in 23cc Heparinized saline. Patient give n 10cc IA of this solution. 08/20/2019 11:35:31 IV Bolus: .9 NaCl 400 ml total 08/20/2019 12:27:15 SUMMARY OF HEMODYNAMIC DATA Time AIR REST ECG 11:03:02 RM AIR REST 11:17:13 AIR REST AO 102/52 (71) SA 11:40:19 LV 109/4, 22 11:47:04 LV 109/5, 21 11:47:11 LV 104/7, 19 11:48:11 LVp 104/2, 19 11:48:17 AOp 100/41 (60) 11:48:22 AO 140/59 (92) 12:13:35 Signed By Brigida Castro MD On 08/20/2019 12:55:25 Brigida Castro MD
--- NOTE | 2019-08-20 13:31 | CL.D_ITS ---
Patient Name: CAMILO SRIVASTAVA Study Date: 08/20/2019 Performing: Kirk Gomes MD Ht: 62.99 inches 160 cm : 1935 Wt: 143.3 lbs 65 kg Age: 83 Gender: female BSA: 1.68 PROCEDURE(S) PERFORMED HY23-MTZ/COR/LV [id number] W OR WO PTCA, SINGLE CORONARY ARTERY CLINICAL PROFILE AND INDICATIONS Indications: Suspected CAD, ACS <= 24 hrs Heart Failure: None Angina Classification Anginal Classification w/in 2 Weeks: CCS IV CAD Presentations: Non-STEMI. CONCLUSIONS Elevated Left Ventricular End Diastolic Pressure Segmented LV systolic dysfunction- Mild LVEF: by LV gram 70 % [place] Multivessel CAD RECOMMENDATIONS Risk factor modification Medical therapy Referred for immediate PCI DESCRIPTION OF PROCEDURE The patient arrived to the procedure lab. The risks and benefits of the procedure as well as a full d escription of our services here and current unavailability of surgical backup were fully explained to the patient and/or their significant other prior to the catheterization. The Timeout was completed, verifying the correct patient and procedure. The patient's procedural site was prepped and draped in the usual fashion. Local anesthetic was given subcutaneously to right radial region with Lidocaine 2% . Using a modified Seldinger technique, arterial access was obtained via the right radial artery, a 6 Fr sheath was inserted. Left Coronary Artery selective angiography was performed in multiple views u sing a 5 Fr. 4.0 [place] catheter. Right Coronary Artery selective angiography was then performed in mu ltiple views using a 5 Fr. 4.0 [place] catheter. Left Ventriculography was performed in AGUILAR projection using a 5 Fr. [place] catheter. LV to AO pullback pressures were then recorded.The arterial sheath was pulled and a TR Band was applied for hemostasis-12cc CORONARY ANGIOGRAPHY DOMINANCE: Left Dominant LEFT HEART ASSESSMENT Left Ventricular Ejection Fraction: by LV Gram 70 % Inferior Apical Akinesis Elevated Left Ventricular End Diastolic Pressure LVEDP: 21 mmHg LEFT MAIN: Mild luminal irregularities LEFT ANTERIOR DESCENDING ARTERY: PROX LAD: Mild luminal irregularities, 25 % Stenosis MID LAD: Previously placed stent is patent with mild luminal irregularities, 25 % Stenosis DIAGONAL 1: Proximal - 75 % Stenosis (small caliber vessel) DIAGONAL 2: Proximal - 25 % Stenosis (small caliber vessel) DIAGONAL 3: Proximal - 25 % Stenosis (small caliber vessel) CIRCUMFLEX ARTERY: OSTIAL CIRC: 85 % Stenosis PROX CIRC: Mild calcification OM 1: Proximal - Mild luminal irregularities (small caliber vessel) OM 2: Mid - diffuse: 25 % Stenosis RIGHT CORONARY ARTERY: PROX RCA: 75 % Stenosis MID RCA: 50 % Stenosis AORTIC ROOT: Angiographically normal COMPLICATIONS No Complications PROCEDURE MEDICATIONS Versed 1 mg IV Fentanyl 50 mcg IV Oxygen: 2 L/min via nasal cannula Heparin diluted in 23cc Heparinized saline. Patient given 10cc IA of this solution. 08/20/2019 11:35: 31 Heparin 4000 unit(s) IV 08/20/2019 12:09:03 Verapamil 2.5mg, Ntg 100mcgs, 2000 units of Heparin diluted in 23cc Heparinized saline. Patient give n 10cc IA of this solution. 08/20/2019 11:35:31 IV Bolus: .9 NaCl 400 ml total 08/20/2019 12:27:15 SUMMARY OF HEMODYNAMIC DATA Time AIR REST ECG 11:03:02 RM AIR REST 11:17:13 AIR REST AO 102/52 (71) SA 11:40:19 LV 109/4, 22 11:47:04 LV 109/5, 21 11:47:11 LV 104/7, 19 11:48:11 LVp 104/2, 19 11:48:17 AOp 100/41 (60) 11:48:22 AO 140/59 (92) 12:13:35 Signed By Kirk Gomes MD On 08/20/2019 1:30:02 PM Kirk Gomes MD
--- NOTE | 2019-08-20 13:41 | CASEMGMT ---
NICOLE RODRIGUEZ assessment: Face to Face with patient for initial transition planning/care coordination assessment. NICOLE RODRIGUEZ introduced self and role at [facility], pt voices understanding and consents to assessment at this time. Pt is lying in bed in no distress at this time. Pt is A/Ox4 at this time and answers all questions appropriately at this time. Care providers, pharmacy, and demographics verified at this time. 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 Admitting dx: NSTEMI, CP, Afib RVR, Hypokalemia PCP: [facility] Specialists: Pt states used to see Dr. López for cardiology but he retired and has not seen anybody since. Preferred Pharmacy: [facility] Insurance: [employer] Prescription Benefit: MMOMCR Living Will/HPOA: Pt states she believes she has a LW but doesn't know where it is. Pt states does not have HPOA but would like to complete at this time. Rick SW aware, voices understanding. LNOK: Ciera Vora, daughter Living Arrangements: Pt states lives alone in 1 story home and states no concerns at home at this time. Pt states independent with ADL's. Transportation: Pt states drives self and states no transportation concerns at this time. DME/HHC: Pt states has a cane, grab bars in shower and by toilet, shower chair and cpap thru [facility]. Pt states no need for any further DME at this time. Pt states no hx of HHC or SNF in the past. Pt states no concerns with going home at time of discharge. Pt states is retired. Pt states does not smoke or drink ETOH. Pt states no further concerns/needs at this time. CM to follow for any further discharge planning/needs. Advised pt to ask for CM if any further questions/concerns/needs arise, voices understanding. Pt Goal: Home Plan[place] NICOLE RODRIGUEZ
--- NOTE | 2019-08-20 14:22 | CHAPLAIN ---
Type of Pastoral Visit _x__ Initial Visit ___ Follow-up Visit ___ On-call Visit ___ General Patient Visit ___ Spiritual Assessment ___ Family Conference ___ Bereavement ___ Rapid Response ___ Code Blue ___ Other (describe below) Pastoral Care Referral From _x__ Patient ___ Family ___ Nurse ___ Physician ___ Independent Video Producer ___ Networks Computer Consultant ___ Other (describe below) Sacrament/Intervention _x__ Active listening ___ Anointing ___ Sabianist ___ Bereavement ___ Communion _x__ Lola exploration ___ _x__ Life review _x__ Prayer ___ Reconciliation ___ Sacrament of Sick _x__ Supportive presence ___ Wedding ___ Other (describe below) Pastoral Comments
--- NOTE | 2019-08-20 14:23 | CASEMGMT ---
Social Work Note SW received consult for advanced directives. SW in to speak with pt to complete advanced directives. SW introduced self and role at [facility]. Pt is alert and orientated x3. Pt completed advanced directives. SW placed copy on pt's chart and gave original to pt. Ruby Knight MAINTENANCE PLUMBER, WINDOWS SERVER SUPPORT TECHNICIAN
--- NOTE | 2019-08-20 15:06 | EKG12_ITS ---
Test Reason : POST PROCEDURE Blood Pressure : / mmHG Vent. Rate : 061 BPM Atrial Rate : 061 BPM P-R Int : 172 ms QRS Dur : 088 ms QT Int : 420 ms P-R-T Axes : 055 044 038 degrees QTc Int : 422 ms Normal sinus rhythm Normal ECG When compared with ECG of 20-AUG-2019 01:20, MANUAL COMPARISON REQUIRED, DATA IS UNCONFIRMED Confirmed by JULIANA MORENO ([id number]), multimedia editor NATE BERNARD ([id number]) on 08/30/2019 10:35:51 AM Referred By: JAQUELIN Confirmed By:JULIANA MORENO
[2019-08-20] MEDS: Gabapentin 600 MG Tablet PO (22:28)
[2019-08-20] MEDS: Atorvastatin Calcium 40 MG Tablet PO (22:28)
[2019-08-20] MEDS: traMADol 50 MG Tablet PO (22:30)
--- NOTE | 2019-08-20 22:48 | CPS ---
Pt. doesn't want to wear CPAP at [facility]
[2019-08-21] VITALS (8 sets, daily range): BP systolic 132–133; BP diastolic 59–76; PULSE 60–77; RESP 16–18; TEMP 36.5–36.7; O2SAT 94–97; BMI 27.9
[2019-08-21] MEDS: Gabapentin 300 MG Capsule PO (06:07)
[2019-08-21] MEDS: Sucralfate 1 GM Tablet PO ×2 (06:10→11:28)
[2019-08-21] MEDS: Sertraline 50 MG Tablet PO (09:28)
[2019-08-21] MEDS: Losartan Potassium 50 MG Tablet PO (09:28)
[2019-08-21] MEDS: Clopidogrel Bisulfate 75 MG Tablet PO (09:28)
[2019-08-21] MEDS: Metoprolol Tartrate 50 MG Tablet PO (09:28)
[2019-08-21] MEDS: Aspirin E.C. 81 MG Tablet PO (09:28)
[2019-08-21] MEDS: hydroCHLOROthiazide 25 MG Tablet PO (09:28)
[2019-08-21] MEDS: Enoxaparin 40 MG/0.4 ML Syringe SC (09:29)
--- NOTE | 2019-08-21 10:37 | PCM.PN.CARD ---
Subjectve: The patient is awake and alert. She states she is feeling well at this time. She denies any recurrent chest discomfort, diaphoresis, etc. At the same time she denies any obvious sensation of dyspnea. There is been no report of palpitations and she has denied any lightheadedness, dizziness, or the sensation of near syncope. There has been no syncopal revent reported. Objective: Vital Signs Temp Pulse Resp BP Pulse Ox 97.7 F L 75 18 132/59 H 96 08/21/19 09:20 08/21/19 09:28 08/21/19 09:20 08/21/19 09:28 08/21/19 09:22 Oxygen Delivery Method Room Air Weight: 143 lb Body Mass Index (BMI) 25.3 Intake and Output for Last 24 Hours 08/19/19 08/20/19 08/21/19 23:59 23:59 23:59 Intake Total 120 / 120 1964 / 1964 240 / 240 Balance 120 / 120 1964 / 1964 240 / 240 General: Awake, Alert, Oriented x 3, Cooperative, No Acute Distress HEENT: Atraumatic, Normocephalic, PERRL, EOMI, Sclera Non Icteric Oral: Moist Mucosa Neck: Supple, Good ROM, No JVD Lungs: Clear to auscultation Cardiovascular: Regular Rhythm, Normal S1, Normal S2 Vascular: No Carotid Bruits, Normal Radial Pulses Abdomen: Bowel Sounds Present, Soft, Non Tender Extremities: No Cyanosis, No Clubbing, No edema Neurological: No Focal Motor or Sensory Deficit Psych/Mental Status: Appropriate Rhythm: Sinus rhythm; 1 brief episode of a slow wide-complex tachycardia compatible with a slow VT compatible with a reperfusion arrhythmia Medical Necessity - Tobacco Use Smoking Status: Never smoker Assessment/Plan 1. Acute non-ST segment elevation OH The patient presents with clinical symptoms and objective findings compatible with an acute non-ST segment elevation OH. This is superimposed upon a history of CAD and previous OH and previous PCI. She has undergone further evaluation. This included transthoracic echocardiogram and diagnostic cardiac catheterization. She was noted to have left ventricular regional wall motion abnormalities but overall preserved LV systolic function. She was also noted to have angiographically significant CAD of the ostial LCx distribution. She underwent PCI. She has been recuperating on her medical therapy. She has done well thus far. 2. CAD status post PCI The patient has a previous history of CAD and PCI. The details are unknown at this time. A request has been made to obtain copies of her previous [facility] cardiovascular records for review. Again she has undergone evaluation as noted above. This resulted in an additional PCI of her LCx distribution. She will continue medical management and follow-up. 3. Paroxysmal atrial fibrillation She had an episode of paroxysmal atrial fibrillation. It is unclear whether this was secondary to her acute coronary syndrome event or potentially prior to her acute coronary syndrome event leading to a type II type event. At the present time it was not felt, noting her current clinical course, that she need to be immediately placed on antiarrhythmic therapy or anticoagulant therapy. This could change depending upon her future clinical course and objective findings. 4. Nonsustained wide-complex tachycardia The patient had an episode of slow nonsustained wide-complex tachycardia/nonsustained VT. It appeared compatible with an underlying reperfusion arrhythmia. She has had no recurrent events and she has had no compromising symptoms. At the moment she is on medical therapy with beta-blockers. She underwent successful PCI. Her overall LV systolic function is preserved. It was not felt she required additional antiarrhythmic therapy or immediate referral for EP consultation at this time. Thus she will continue medical therapy and follow-up. 5. Hyperlipidemia She will continue risk factor evaluation care as deemed appropriate. 6. Hypertension Her blood pressure will be followed. Her medicines will be adjusted as needed. Comment: The patient's case was discussed and reviewed with the patient and Dr. Winter. This note was generated using a voice recognition system and there may be incorrect words, spelling or punctuation that were not noted when reviewing the office note prior to saving.
--- NOTE | 2019-08-21 11:02 | DCINST_ITS ---
- Discharge Diagnoses Current Active Problems: Current Active and Chronic Problems Presence of stent in coronary artery (Chronic ~08/20/19) Successful PTCA/LIZBETH to LCX per cath 08/20/19 Chest pain (Acute) Atrial fibrillation status post cardioversion (Acute) HTN (hypertension) (Chronic) Hyperlipidemia (Chronic) Hypokalemia (Acute) NSTEMI (non-ST elevated myocardial infarction) (Acute) S/P PTCA (percutaneous transluminal coronary angioplasty) (Acute) You will use the following diet at home:: Cardiac Your food should be the consistency of: Regular Your liquids should be the consistency of: Regular/Thin Discharge Activity: Return to Normal Activity Call your doctor if you observe: Fever of 101 or Higher, Shortness of breath, Chest pain Allergies/Adverse Reactions: Allergies meperidine [From Demerol] Adverse Reaction (Verified 08/19/19 21:51) Nausea Medications to take at Discharge Atorvastatin Calcium 40 mg PO DAILY 08/19/19 Clopidogrel Bisulfate [Clopidogrel] 75 mg PO DAILY 08/19/19 Eszopiclone [Lunesta] 1 mg PO QHS PRN PRN 08/19/19 Gabapentin [Neurontin] 300 mg PO BID 08/19/19 Gabapentin [Neurontin] 600 mg PO QHS 08/19/19 Hydrochlorothiazide [Hctz] 25 mg PO DAILY 08/19/19 Losartan Potassium 50 mg PO BID 08/19/19 Metoprolol Tartrate 50 mg PO BID 08/19/19 Pramipexole Di-HCl [Mirapex] 0.25 mg PO BID PRN PRN 08/19/19 Sertraline HCl [Zoloft] 50 mg PO DAILY 08/19/19 Sucralfate [Carafate] 1 tab PO PRN PRN 08/19/19 Tramadol HCl 50 mg PO BID PRN PRN 08/19/19 Aspirin E.C. [Ecotrin] 81 mg PO DAILY@0800 tablet 08/21/19 Orders to be completed after discharge: Phase II, Outpatient Cardiac Rehab Location: None Selected Primary Care Physician: Gladys Pickett MD [Primary Care Provider] - Within 2 Weeks Test Results: Test results from this visit will be discussed in further detail at your follow- up appointment, if applicable. Please Follow Up With: Kirk Gomes MD When: 2-4 weeks. Proposed Discharge Date: 08/21/19
--- NOTE | 2019-08-21 11:04 | DS.PCM_ITS ---
Discharge Date and Diagnosis - Problem List Patient Problems: Active and Suspected Problems Chest pain (Acute) Atrial fibrillation status post cardioversion (Acute) Hypokalemia (Acute) NSTEMI (non-ST elevated myocardial infarction) (Acute) S/P PTCA (percutaneous transluminal coronary angioplasty) (Acute) Date of Admission: 08/19/19 Date of Discharge: 08/21/19 - Primary Discharge Diagnosis Active and Suspected Problems NSTEMI tachycardia, SVT - Secondary Discharge Diagnosis Chronic Problems (Last Updated 08/20/19 @ 13:20 by Fabi Lemons) Presence of stent in coronary artery (Chronic ~08/20/19) Successful PTCA/LIZBETH to LCX per cath 08/20/19 CAD (coronary artery disease) (Chronic) HTN (hypertension) (Chronic) Hyperlipidemia (Chronic) Hospital Course and Treatment Imaging Results: Clinical Impression(s) from Imaging Studies Chest X-Ray 08/19/19 22:18 IMPRESSION: No acute cardiopulmonary pathology Electronically Signed: Balbir Bell MD at 22:36 EDT , Service support , [facility], cardiology Operations: None Procedures: Cardiac catheterization - PCI to circumflex Summary of Care Provided: The patient is a 83 year old F presents with chest pain. Found to have a NSTEMi. Underwent a PCI yesterday to circumflex. Feeling well afterwards. Will discharge with DAPT and atorvastatin. Follow up with cardiology in the coming weeks. Pt did have tachycardia upon arrival that converted to NSR upon receiving adenosine. The rhythm may have been more SVT rather than afib as it converted with adenosine.[] Patient Problems: Active and Suspected Problems Chest pain (Acute) Atrial fibrillation status post cardioversion (Acute) Hypokalemia (Acute) NSTEMI (non-ST elevated myocardial infarction) (Acute) S/P PTCA (percutaneous transluminal coronary angioplasty) (Acute) - Physical Exam Vitals/I&O's: Vital Signs Temp Pulse Resp BP Pulse Ox 36.5 C L 75 18 132/59 H 96 08/21/19 09:20 08/21/19 09:28 08/21/19 09:20 08/21/19 09:28 08/21/19 09:22 Oxygen Delivery Method Room Air Weight: 64.864 kg Body Mass Index (BMI) 25.3 Intake and Output for Last 24 Hours 08/19/19 08/20/19 08/21/19 23:59 23:59 23:59 Intake Total 120 / 120 1964 240 / 240 Balance 120 / 120 1964 240 / 240 General: Alert, Cooperative, No apparent distress HEENT: Atraumatic, Normocephalic Oral: Moist Mucosa, No Gingival or Mucosal Lesions/ Ulcerations Neck: No Nodes, Trachea Midline Lungs: Clear to auscultation, Normal air movement, No rhonchi, No wheeze Cardiovascular: Regular rate, Regular Rhythm, Normal S1, Normal S2, No murmurs Abdomen: Bowel Sounds Present, Soft, Non Tender, Non-Distended, No Hepato- splenomegaly Extremities: No edema, No Calf Tenderness Current Medications Aspirin (Ecotrin) 81 mg PO DAILY@0800 [facility] Last Admin: 08/21/19 09:28 Dose: 81 mg Documented by: Atorvastatin Calcium (Lipitor) 40 mg PO DAILY@2200 [facility] Last Admin: 08/20/19 22:28 Dose: 40 mg Documented by: Clopidogrel Bisulfate (Plavix) 75 mg PO DAILY [facility] Last Admin: 08/21/19 09:28 Dose: 75 mg Documented by: Enoxaparin Sodium (Lovenox) 40 mg SC DAILY [facility] Last Admin: 08/21/19 09:29 Dose: 40 mg Documented by: Gabapentin (Neurontin) 300 mg PO BID@0600,1400 [facility] Last Admin: 08/21/19 06:07 Dose: 300 mg Documented by: Gabapentin (Neurontin) 600 mg PO QHS [facility] Last Admin: 08/20/19 22:28 Dose: 600 mg Documented by: Hydrochlorothiazide (Hctz) 25 mg PO DAILY [facility] Last Admin: 08/21/19 09:28 Dose: 25 mg Documented by: Losartan Potassium (Cozaar) 50 mg PO BID [facility] Last Admin: 08/21/19 09:28 Dose: 50 mg Documented by: Metoprolol Tartrate (Lopressor (Beta Florinda)) 50 mg PO BID [facility] Last Admin: 08/21/19 09:28 Dose: 50 mg Documented by: Morphine Sulfate () 2 mg IV Q3H PRN PRN PRN Reason: Pain Score 6-10/10 Nitroglycerin (Nitrostat) 0.4 mg SUBLINGUAL Q5M PRN PRN Reason: CARDIAC/CHEST PAIN Pramipexole Dihydrochloride (Mirapex) 0.25 mg PO BID PRN PRN PRN Reason: SCIATICA Sertraline HCl (Zoloft) 50 mg PO DAILY [facility] Last Admin: 08/21/19 09:28 Dose: 50 mg Documented by: Sodium Chloride () 10 - 40 ml IV UD PRN PRN Reason: SALINE FLUSH Sucralfate (Carafate) 1 gm PO 1HR_ACHS [facility] Last Admin: 08/21/19 06:10 Dose: 1 gm Documented by: Tramadol HCl (Ultram) 50 mg PO BID PRN PRN PRN Reason: PAIN 1-02/07 Last Admin: 08/20/19 22:30 Dose: 50 mg Documented by: Zolpidem Tartrate (Ambien (Generic)) 5 mg PO QHS PRN PRN PRN Reason: for sleep Last Admin: 08/20/19 22:30 Dose: 5 mg Documented by: Discharge Diet: Low fat/ Low Cholesterol Discharge Activity: Return to Normal Activity Call your doctor if you observe: Fever of 101 or Higher, Shortness of breath, Chest pain Home Medications: Medications to take at Discharge Atorvastatin Calcium 40 mg PO DAILY 08/19/19 Clopidogrel Bisulfate [Clopidogrel] 75 mg PO DAILY 08/19/19 Eszopiclone [Lunesta] 1 mg PO QHS PRN PRN 08/19/19 Gabapentin [Neurontin] 300 mg PO BID 08/19/19 Gabapentin [Neurontin] 600 mg PO QHS 08/19/19 Hydrochlorothiazide [Hctz] 25 mg PO DAILY 08/19/19 Losartan Potassium 50 mg PO BID 08/19/19 Metoprolol Tartrate 50 mg PO BID 08/19/19 Pramipexole Di-HCl [Mirapex] 0.25 mg PO BID PRN PRN 08/19/19 Sertraline HCl [Zoloft] 50 mg PO DAILY 08/19/19 Sucralfate [Carafate] 1 tab PO PRN PRN 08/19/19 Tramadol HCl 50 mg PO BID PRN PRN 08/19/19 Aspirin E.C. [Ecotrin] 81 mg PO DAILY@0800 tablet 08/21/19 Other Amb Orders: Phase II, Outpatient Cardiac Rehab Location: None Selected Primary Care Physician: Gladys Pickett MD [Primary Care Provider] - Within 2 Weeks Please Follow Up With: Kirk Gomes MD When: 2-4 weeks. Disposition: Home Minutes spent on discharge:: 32 Patient Condition:: Good Medical Necessity - Tobacco Use Smoking Status: Never smoker Meaningful Use Info Meaningful Use Diagnoses (Choose all that apply): None applicable Inpatient E&M: [id number] [facility]
--- NOTE | 2019-08-21 11:07 | CRPHASE1 ---
Patient Communication Former Patient:: Phase II PHII Cardiac Rehab Discussed with Patient:: Yes Guide to Cardiac Rehab Given to Patient:: Yes Cardiac Rehab Facility Choice List Given to Patient:: Yes - pt chooses [facility] Choice Program [facility] CR PHII:: Communication Given to CR, Refer to [facility] Microbiology Analyst:: Kirk Gomes Phase II Cardiac Rehab:: Yes Sessions:: 36 sessions - 3 days/wk, 12 weeks Risk Factors/Lifestyle Height: 5 ft Weight:: 64.86 kg BMI: 27.9 Laboratory Values: Cardiac Rehab Phase I Labs Triglycerides 246 mg/dL (-199) H 08/20/19 04:28 Cholesterol 124 mg/dL (200) 08/20/19 04:28 LDL Cholesterol 45 mg/dL (0-130) 08/20/19 04:28 HDL Cholesterol 30 mg/dL (40-) L 08/20/19 04:28 Phase I Education Given On:: [place], Nutrition, Antiplatelet medication, CHF, Smoking cessation, Diabetes - Type I, Diabetes - Type II Issues Affecting Care:: None Knowledge of Condition:: Yes Hospital Course Cardiac Cath Date:: 08/20/19 Medical/Surgical History PTCA:: Yes Cardiac Rehabilitation Info Cardiac Rehabilitation Program Information: Cardiac Rehabilitation is important for patients like you who are recovering from a heart problem. Cardiac rehabilitation programs are recognized as integral to the continued care of the patient with coronary heart disease. The cardiac rehabilitation program is designed to optimize a patient's physical, psychological, and social functioning. Health healthcare applications analyst work in cardiac rehabilitation programs and assist you with getting the treatments you need to get stronger and healthier - like exercise, healthy eating habits, and medications. Cardiac rehabilitation has been show to help people with heart problems live longer and have better life enjoyment than people who do not go to cardiac rehabilitation. Please contact the Cardiac Rehabilitation Program at [facility] at in two weeks if you have not heard from them.
--- NOTE | 2019-08-21 11:10 | CRPH1.INSTRU ---
General Education CAD and cardiac anatomy and function:: Patient communicates acknowledgment Explanation of diagnoses and procedures:: Patient communicates acknowledgment Sign/Symptoms of RI:: Patient communicates acknowledgment Antiplatelet therapy: Patient communicates acknowledgment Proper use of NTG-SL: Not instructed Emergency procedures and activation of EMS: Patient communicates acknowledgment Compliance of all prescribed medications: Patient communicates acknowledgment Smoking Nicotine/Smoking Response Code:: Patient communicates acknowledgment Dyslipidemia Dyslipidemia Response Code:: Patient communicates acknowledgment Overweight/Obesity Patient Overweight/Obesity Risk Factors Are:: BMI Normal [24-29 & > 65 years old] Overweight/Obesity:: Patient communicates acknowledgment Hypertension Hypertension:: Patient communicates acknowledgment Heart Disease Heart Disease Response Code:: Patient communicates acknowledgment Diabetes Diabetes:: Patient communicates acknowledgment Metabolic Syndrome Metabolic Syndrome Response Code:: Patient communicates acknowledgment Sedentary Sedentary Response Code:: Patient communicates acknowledgment Stress Stress Response Code:: Patient communicates acknowledgment
== END 2019-08-21 13:19 | disposition home or self-care (01) | DRG 247 ==
LOC: ED 22:46 → PCU 08-20
PROVIDERS: Admitting Provider Family Medicine; Emergency Provider Emergency Medicine; PCP Internal Medicine
DX: I21.4 Non-ST elevation (NSTEMI) myocardial infarction (principal); I47.1 Supraventricular tachycardia; I25.10 Atherosclerotic heart disease of native coronary artery without angina pectoris; I48.0 Paroxysmal atrial fibrillation; E87.6 Hypokalemia; I10 Essential (primary) hypertension; E78.5 Hyperlipidemia, unspecified; G47.00 Insomnia, unspecified; Z79.02 Long term (current) use of antithrombotics/antiplatelets; Z79.82 Long term (current) use of aspirin; Z79.899 Other long term (current) drug therapy; I25.2 Old myocardial infarction; Z95.5 Presence of coronary angioplasty implant and graft
CPT/HCPCS: 36415; 71045; 80048; 80053; 80061; 84484; 85025; 85610; 92928; 93005; 93306; 93458; 99152; 99153; 99285; J7030; J7040; Q9967; A4216; C1725; C1769; C1874; C1887; C1894; C9600; J0153

== ENCOUNTER → 2019-09-09 12:38 | Outpatient (CLI) | payer MEDICARE, SELFPAY ==
[2019-08-20] VITALS: BMI 25.3
[2019-08-21 11:09] VITALS: BMI 27.9
[2019-09-04 10:46] VITALS: BMI 25.0
--- NOTE | 2019-09-09 12:46 | CR.ITP_ITS ---
Diagnosis - General Information Admitting Diagnosis: NSTEMI, PCI W/STENTING Secondary Diagnosis: I25.10, Z98.61 Personal Learning Style:: Audio/Visual, Written Barriers to Learning: Hearing Impairment, Vision Impairment Gave educational material for:: Treating Heart Disease, Emotions & Heart Disease, Stress Management & Relaxation, Sleep Disorders & Heart Disease, How The Heart Works, What it means to have Heart Disease, How Coronary Artery Disease is Diagnosed, Heart Procedures, What Heart Medications Do, Risk Factors & Modifications, Living an Active Life, Nutrition - Education/Goals Individual Counseling: Initial Assessment: Abnormal Cholesterol Levels, High Blood Pressure Cardiac Rehabilitation Goals: 1. Maintain the individual as the primary focus of care. 2. To improve the patient's quality of life. 3. Identification of cardiac risk factors and provide cardiac risk factor management. 4. Enhance the psychosocial status of the patient. 5. Reconditioning enough to allow the patient to resume customary activities. 6. Control symptoms of cardiac disease Personal Goals: Initial Assessment: Improve management of stress and emotions, Improve energy level, Participate in home exercise program, Get back to work, or to resume activities faster, Improve knowledge of cardiac disease, Improve muscle strength and endurance, Improve diet and eating habits (eat healthier), Control risk factors (learn risk factor modification) Scale for measuring improvement of personal goals: Enter appropriate number in Comments. 2 = Unchanged. 3 = Slightly Better. 4 = Moderate Improvement. 5 = Met my Goal - Diagnosis & Disease Process Outcomes/Goals: Pt IDs own risk factors & lifestyle modifications by Session 10, Verbalizes symptoms of angina & response by session 3., Pt independently manages Plan/Interventions: Assist Pt to ID & engage in lifestyle modification to reduce CVD risk, Instruct on individual risk factors, Review symptoms of angina & emergency actions, Review secondary diagnosis & identify educational needs. - Safety Referral to Physical Therapy: No Referral to [facility] Case Management: No Fall Risk Assessed:: Yes Assistive Devices:: None Exercise - Initial Assessment - Visit Date of Eval: 09/09/19 - SCHEDULED PATIENT TO START CR Session #:: 0 - INITIAL EVALUATION - Physician Prescribed Exercise Modalities: Treadmill, Airdyne, NuStep, SciFit Frequency: 3x/week for 12 weeks [36 sessions] Intensity: 60-80% of age predicted maximum heart rate reserve Current METSs:: 3.0 Target Heart Rate:: 90-117 Resting Blood Pressure: 132/60 - Outcomes & Goals Goals:: Verbalizes understanding of THR, RPE & goal METS by session 6, Documents in home exercise log/reports 30 min aerobic 5 day/wk by DC, Demonstrates accurate pulse taking by DC - Intervention & Plan Exercise Program Goals: Instruct on personal THR & RPE, Instruct on MET level & personal MET goal, Show patient to take own pulse /validate performance until accurate, Instruct on home exercise - Physical Activity Home Exercise Physical Activity - Home Exercise: Safe Exercise, Warm-up, Self-monitoring, Cool-Down, Home Exercise > 30 min Daily, Sitting Time <3 hours/daily - Outcomes & Goals Outcomes/Goals: Demonstrates correct Warm-up/exercise Cool-Down (S3) if = 2.5 METs, Verbalizes symptoms of exercise intolerance by Session 3 (S3), Demonstrate safe equipment use (S3) & follows exercise prescrition (6) - Intervention & Plan Plan/Intervention: Instruct warm-up & cool-down if exercising at > 2 METs, Instruct on symptoms of exercise intolerance & actions to take, Instruct & monitor on saf, Assess intial functional capacity & safety risk Nutrition - Initial Assessment - Program Goals Nutrition Program Goals: LDL <100 optimal. 100 - 129 Near optimal. 130 - 159 Borderline High. 160 - 189 High. Total Cholesterol <200 desirable. 200 - 239 Borderline High. >/= 240 High. HDL < 40 Low >/=60 High. Triglycerides <150 desirable. <199 optimal. VlDL 5 - 40. HgbA1C <7%. BMI <25 Patient has diagnosis of Hyperlipidemia (ICD E78)?: Yes - Visit Date of Assessment:: 09/09/19 Session #:: 0 - INITIAL EVALUATION - Cholesterol/Lipids Triglycerides (mg/dL): 246 Total Cholesterol (mg/dL): 124 LDL Cholesterol (mg/dL): 45 HDL Cholesterol (mg/dL): 30 Determine presence & major risk factors that modify LDL goal: Hypertension or hypertensive medication, Low HDL cholesterol <40 mg/dL*, Age men > 45 years; women >/= 55 years Outcomes/Goals: Pt IDs own risk factors & lifestyle modifications by Session 10, Verbalizes symptoms of angina & response by session 3., Pt independently manages Intervention/Plan: Instruct on personal lipid levels & lipid goals/NCEP guidelines, Instruct on cholesterol Referral to dietitian:: Yes - Diabetes (Other Core Measures) Diabetes Type: Not Applicable - Weight Mgt (Other Care) Not Applicable: Yes Height: 5 ft 3 in Weight:: 143 lb 8 oz BMI: 25.4 Diagnosis Overweight/Obesity BMI> 30% ICD-10 E66: No Diagnosis High BMI/Morbid Obesity BMI> 35% ICD-10 Z68: No Outcomes/Goals: Pt sets, maintains & shows weight loss goal & trend during rehab Intervention/Plan: Instruct on ideal BMI & set weight loss goal w/patient, Assist pt to ID & incorporate diet changes for weight loss by S9, Refer to Structured Weight Loss program as appropriate, Encourage goal of using 250- 300dcal per session for weight loss - Healthy Eating Habits Will attend diet classes:: Yes Outcomes/Goals:: Consume diet rich in vegs,fruits,whole grain/high fiber,fish,lean meat, Limit sat/trans fats,cholesterol & added salts & sugars Intervention/Plan:: Assess current eating habits - Education Gave educational materials for:: Healthy eating Medical - Initial Assessment - Visit Date of Eval: 09/09/19 Session #:: 0 - INITIAL EVALUATION - Medication Compliance Preventative Medication(s):: Aspirin, Clopidogrel/P2Y12 inhibit, Statin/lipid H/O mental health issues: depression, anxiety, or addiction?: No Doesn?t believe in the benefits of treatment?: No Believes medications are unnecessary or harmful?: No Has a concern about medication side effects?: No Expresses concern over the cost of medications?: No Outcomes/Goals: Verbalizes medications,desired effect & common side effects @ DC, Pt self-reports following medication regimen, Keeps card in wallet w/medications listed by DC Interventions/plans: Instruct on medication effects & side effects, Review medication list w/patient every two weeks, Instruct importance of taking meds as ordered & assist problem solving - Tobacco Use Tobacco Use: Non-smoker - Hypertension Hypertension Diagnosis:: Hypertension ICD-10 I10 Resting Blood Pressure:: 132/60 [place] [employer] Hypertension Guidelines: [place] [employer] Hypertension Guidelines. Normal BP Less than 120/80. Elevated BP 120/80. Hypertension Stage 1: BP 130-139/80-89. Hypertesnion Stage 2: BP 140 or higher/90 or higher. Hypertension Crisis: BP higher than 180/120 Outcomes/Goals: Able to verbalize/achieve optimal blood pressure <130/80, Incorporates diet changes & exercise for blood pressure control by DC Interventions/plan: Instruct on optimal blood pressure, hypertension & medications, Instruct on effects of sodium, alcohol, stress, exercise &hypertension - Tobacco Cessation Referral Smoking Cessation Referral:: No Individual Education/Counseling:: No Education Schedule Given:: Yes Psychosocial - Initial Assess - VIsit Date of Eval: 09/09/19 Session #:: 0 - INITIAL EVALUATION Not Applicable: Yes History of previous Mental disease:: No - Target Goals Target Goals: Assess presence or absence of depression. Using a valid screening tool, maximizes coping skills. Positive support system - Psychosocial Test Tool Used:: Tashi Roberts QOL Cardiac, PHQ-9 Questionnaire Self-reported stress:: 12 phq-9 Severity: Severity. 1-4 Minimal Depression. 5-9 Mild Depression. 10-14 Moderate Depression. 15-19 Moderately Sever Depression. 20-27 Severe Dep ression. Rule: Total Score:: 12 - MODERATE DEPRESSION PER PHQ-9 SCORE - Referral to Behavioral Health PS - Interventions: Yes Referral to Behavioral Health if PHQ-9 score >9:, Yes Referral to Physician if PHQ-9 if score is 5-9: - PHQ-9 SCORE INDICATED MODERATE DEPRESSION SCORE, Yes Attend Stress Management Classes, No Referral to [facility] - Outcomes/Goals: See list Psychosocial Outcomes/Goals:: ID's personal stressors & 2 strategies to manage stress by discharge - Intervention/Plan: See List Interventions/Plan:: Assess stressors,coping strategies & signs of derpression on admission, Instruct/assist pt to develop coping & personal stress Mgt strategies, Instruct patient to recognize signs & symptoms of depression, Instruct patient to recog Patient Health Questionnaire Initial Assessment 1. Little interest or pleasure in doing things: Several days 2. Feeling down, depressed, or hopeless: Not at all 3. Trouble falling or staying asleep, or sleeping too much: More than half the days 4. Feeling tired or having little energy: More than half the days 5. Poor appetite or overeating: Nearly every day 6. Feeling bad about yourself -- or that you are a failure or have let yourself or your family down: Not at all 7. Trouble concentrating on things, such as reading the newspaper or watching television: More than half the days 8. Moving or speaking so slowly that other people could have noticed. Or the opposite - being so fidgety or restless that you have been moving around a lot more than usual: More than half the days 9. Thoughts that you would be better off , or of hurting yourself in some way: Not at all How difficult have these problems made it for you to do your work, take care of things at home, or get along with other people?: Not difficult at all Total Score: 12 KIM-Q SV Test - Statements CAD is a disease of the arteries in the heart: True Examples of risk factors for heart disease: True Angina is chest pain or discomfort: True The benefits of resistance training include: True Eating more meat and dairy products: False Anti-platelet medications such as aspirin are important: True The only effective way to manage stress: False An exercise warm-up slowly increases heart rate: True Prepared, processed foods usually have high sodium: True Depression is common after a heart attack: True The statin medications lower cholesterol: True To control blood pressure, lower the amount of sodium: True If someone gets chest discomfort during walking: False Transfats are partially hydrogenated vegetable oils: True Sleep apnea that is not treated increases the risk: False To control cholesterol, one should become a vegetarian: True Someone knows if he/she is exercising at the right level: True Diabetes cannot be prevented with exercise & health eating: True Stress is a large risk for heart attack: True A diet that can help lower blood pressure is rich in: True - Total Score Total Correct Responses: 17 Self-Efficacy Initial Assessment We would like to know how confident you are in doing certain activities. Please select your confidence level for:: Select your confidence level for the following using the scale 1-10 where 1 is not at all confident and 10 is totally confident. Your score is the average of all 6 responses. Fatigue: How confident are you that you can keep the fatigue caused by your disease from interfering with the things you want to do? Select Number: 5 Physical Discomfort or Pain: How confident are you that you can keep the physical discomfort or pain of your disease from interfering with the things you want to do? Select Number: 8 Emotional Distress: How confident are you that you can keep the emotional distress caused by your disease from interfering with the things you want to do? Select Number: 7 Other Symptoms or Health Problems: How confident are you that you can keep other symptoms or health problems from interfering with the things you want to do? Select Number: 3 Different Tasks and Activities: How confident are you that you can do the different tasks and activities needed to manage your health condition so as to reduce your need to see a doctor? Select Number: 3 Medication: How confident are you that you can do things other than just taking medication to reduce how much your illness affects your everyday life? Select Number: 4 Total Score:: 5 Nutrition Survey - Nutrition Survey Instructions Scoring Instructions: Scoring is as follows: Yes = 1 points. No = 0 point. Patient score that is >/=12 is considered to be at potential nutritional risk and could benefit from a referral to a registered dietitian. - Nutrition Survey Initial Have you lost >10 lbs over the past 2 months without trying?: No Are you following a special diet at home for diabetes, low fat, or low salt?: No Are you interested in meeting with a dietitian for help understanding your diet?: No Do you eat less than 3 meals a day?: Yes Do you eat fatty meats (salinas, sausage, ribs, etc), fried foods, desserts, large amounts of salad dressings, margarine, butter, or cheese most days?: No Do you have food allergies? [Enter types in comment field]: No Do you eat in restaurants more than 3 times a week?: No Do you season food with salt, seasoning salt, or garlic salt?: Yes Do you used canned, boxed, frozen meals, or soups, seasoning packets?: Yes Total Score:: 3
--- NOTE | 2019-09-09 12:46 | PCM.CR.HP2 ---
CR - History & Physical - General Arrival date:: 09/09/19 Arrival time:: 12:50 Date of Referral:: 08/20/19 Date of CR Evaluation:: 09/09/19 Referring Physician: DR. JUSTINA CLEVELAND Primary Diagnosis: PCI W/CORONARY STENT - History of Present Cardiac Event Onset Date: Enter Onset Date of cardiac illnesses in Comment field below Acute Myocardial Infarction within 12 months:: Yes - NSTEMI 08/20/2019 PTCA or coronary stenting:: Yes - 08/20/2019 Type of Symptoms:: HEAVY PRESSURE ON HER CHEST, WENT TO BEDROOM AND TOOK HER BLOOD PRESSURE AND NOTICED HER BP AND HEART RATE WERE BOTH ELEVATED. HSE HAD A GOOD DAY, CLEANED WINDOWS, BAKED A PIE, SAT DOWN AT 6 OCLOCK TO WATCH THE NEWS, SH CALLED HER DAUGHTER THEN CALLED EMS. - Medications Home Medications: Ambulatory Orders Medication Instructions Recorded Atorvastatin Calcium 40 mg PO DAILY 08/19/19 Clopidogrel Bisulfate [Clopidogrel] 75 mg PO DAILY 08/19/19 Eszopiclone [Lunesta] 1 mg PO QHS PRN PRN 08/19/19 Gabapentin [Neurontin] 300 mg PO BID 08/19/19 Gabapentin [Neurontin] 600 mg PO QHS 08/19/19 Hydrochlorothiazide [Hctz] 25 mg PO DAILY 08/19/19 Losartan Potassium 50 mg PO BID 08/19/19 Metoprolol Tartrate 50 mg PO BID 08/19/19 Pramipexole Di-HCl [Mirapex] 0.25 mg PO BID PRN PRN 08/19/19 Sertraline HCl [Zoloft] 50 mg PO DAILY 08/19/19 Sucralfate [Carafate] 1 tab PO PRN PRN 08/19/19 Tramadol HCl 50 mg PO BID PRN PRN 08/19/19 Aspirin E.C. [Ecotrin] 81 mg PO DAILY@0800 tab 08/21/19 - Allergies Allergies/Adverse Reactions: Allergies meperidine [From Demerol] Adverse Reaction (Verified 09/04/19 10:47) Nausea - Sleep Disorder Evaluation Hx of Sleep Apnea: Yes Do you snore loudly (louder than talking or can be heard through closed doors)?: Yes - HAS A HOME CPAP UNIT FOR THE PAST 3 YEARS OR SO NOW. Do you often feel tired/ fatigued/ sleepy during daytime?: No Has anyone observed you stop breathing during sleep?: No History of Hypertension (for STOP score): Yes STOP Results: Positive Advanced Directives - Advanced Directives Power of Civil Cad [employer]er: Yes - DAUGHTERS ARE P.O.A FOR HEALTHCARE Living Will: Yes Advance Directives Information Provided: No Advance Directives on File: Yes DNR Order?:: No Past Medical History - Past Medical Illness Medical History: Past Medical History (Last Updated 08/29/19 @ 11:58 by Fabi Lemons) Pure hypercholesterolemia (Chronic) E78.00 ALVERTO on CPAP (Chronic) G47.33, Z99.89 Essential hypertension (Chronic) I10 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.10 Presence of stent in coronary artery (Chronic) Onset Date: ~08/20/19 Z95.5 Successful PTCA/LIZBETH to LCX per cath 08/20/19; PCI/LIZBETH to mid LAD 01/15/09; PCI/BMS to prox LAD 08/20/07 Chest pain (Acute) R07.9 Atrial fibrillation status post cardioversion (Acute) I48.91 NSTEMI (non-ST elevated myocardial infarction) (Acute) I21.4 CAD (coronary artery disease) I25.10 Hypokalemia E87.6 HTN (hypertension) I10 Hyperlipidemia E78.5 - Past Surgical History Surgical History: Past Surgical History (Last Updated 08/29/19 @ 11:53 by Fabi Lemons) Presence of coronary angioplasty implant and graft Onset Date: ~08/20/19 Z95.5 Successful PTCA/LIZBETH to LCX per cath 08/20/19 History of appendectomy Z90.49 History of carpal tunnel surgery Z98.890 History of left breast biopsy Z98.890 History of total hysterectomy Z90.710 S/P PTCA (percutaneous transluminal coronary angioplasty) Z98.61 Surgical History: angioplasty - cardiac stent, last placed circa 2006 - Family History Summary Family History: Family History (Last Updated 08/29/19 @ 11:54 by Fabi Lemons) Father Heart disease Brother Diabetes Mother COPD (chronic obstructive pulmonary disease) Grandfather Heart disease Social History - Smoking History Smoking Status: Never smoker Hx Tobacco Use: No Hx Smoking Exposure: No - Alcohol Use Alcohol Usage: No - Substance Abuse Hx Substance Use: No - Occupation Occupation (List type of work in comments):: Retired - Hobbies, Recreation, Social Activities Hobbies: Reading, Watch TV, Exercise - [employer], , Other Recreational Activities: I am able to engage in a few activities Social Environment - Status Marital Status: - Current Living Arrangements Living Environment:: Alone - Children How many children do you have?: 2 - 2 DAUGHTERS Do any of your children live nearby?: Yes - Safety Do you feel safe in your surroundings?: Yes Review of Systems - Review of Systems Hints: Right click = Denies (Slash). Left click = Reports ([place]) Review of Present Symptoms: Reports: Shortness of Breath with Exertion, Fatigue, Heart Arrhythmia/Irregularities - H/O SVT-TACHYCARDIA and ATRIAL FIBRILLATION STATUS POST CARDIOVERSION, Appetite - Normal - TOO GOOD..., Appetite - Special Diet - LOW CALORIE, LOW SALT, LOW FAT., Sleep - Normal. Denies: Shortness of Breath at Rest, Angina, Dizziness/Lightheadedness - Pain Is Patient Pain Free?: Yes Pain Location: pelvis, back, other - SCIATICA RIGHT SIDE Pain Level: 08/08 Risk Factor Assessment - Chief Complaint Chief Complaint: THE PATIENT IS A 83 YEAR OLD FEMALE OF DR. José CLEVELAND WHO PRESENTS TO CARDIAC REHAB TODAY FOLLOWING RECENT NSTEMI AND PCI INTERVENTION BACK IN JULY 2019. DUE TO THE COVID-19 PANDEMIC, THE PATIENT IS JUST NOW BEING EVELUATED FOR CARDIAC REHAB. - Vital Signs Temperature: 97.7 F Respiratory Rate: 14 Pulse Ox: 97 Blood Pressure: 132/60 - Pulse Pulse Rate: 74 Pulse Rhythm: Regular - Hypertension How long have you been treated?: AGE 46 OR 47 On medication(s)?: YES Blood Pressure Sitting - Left Arm: 132/60 - Blood Cholesterol/Lipids Total Cholesterol (mg/dL) Goal = less than 200 mg/dL: 124 HDL Cholesterol (mg/dL) Goal = less than 40 mg/dL: 30 LDL Cholesterol (mg/dL) Goal = less than 70 mg/dL: 45 Triglycerides (mg/dL) Goal = less than 150 mg/dL: 246 - Diabetes Nutrition Referral for Diabetes: No - Obesity Height: 5 ft 3 in Weight:: 143 lb 8 oz Weight in Pounds: 143.5 lbs Weight Source: Standing Scale Body Mass Index (BMI): 25.4 Nutritional Referral for Obesity: No - Physical Inactivity Physical Inactivity: Recreational activity - Risk Stratification Risk Guidelines: Lowest Risk: Risk Factor for Smoking, Risk Factor for Dyslipidemia, Risk Factor for Diabetes, Risk Factor for Obesity, Risk Factor for Depression, Moderate Risk: Risk Factor for Hypertension - 132/60 - For Smoking Smoking Risk Guidelines: Smoking Low Risk: None or quit greater than 6 months ago. Smoking Moderate Risk: Smoker or quit 6 months or less ago. Smoking High Risk: Smoker - For Dyslipidemia Dyslipidemia Risk Guidelines: Low Risk: Moderate Risk: High Risk: 15-25% fat 25.1-29% fat >/= 30% fat. <7% sat fat 7-9% sat fat >9% sat fat. <150 mg chol 150-299 mg chol >/= 300 mg chol. LDL <100 LDL 100-129 LDL >/= 130. Chol/HDL ratio <5.0 Chol/HDL ratio 5.0-6.0 Chol/HDL ratio >6.0. Triglycerides <100 Triglycerides 100-149 Triglycerides >/= 150 - For Diabetes Mellitus Diabetes Risk Guidelines: Diabetes Low Risk: HgA1c <6.5% and/or FBG <120. Diabetes Moderate Risk: HgA1c 6.6-7.9% and/or FBG 120-180. Diabetes High Risk: HgA1c >/= 8% and/or FBG >180 - For Obesity/Overweight Obesity/Overweight Risk Guidelines: Obesity Low Risk: BMI <25.0. Obesity Moderate Risk: BMI 25-29.9. Obesity High Risk: BMI >/= 30.0 - For Hypertension Hypertension Risk Guidelines: Hypertension Low Risk: Systolic <120 and Diastolic <80. Hypertension Moderate Risk: Systolic 120-139 and Diastolic 80-89. Hypertension High Risk: Systolic >/= 140 and Diastolic >/= 90 - For Sedentary Lifestyle Sedentary Lifestyle Risk Guidelines: Sedentary Lifestyle Low Risk: >/= 1,500 kcal/week. Sedentary Lifestyle Moderate Risk: 700-1,499 kcal/week. Sedentary Lifestyle High Risk: < 700 kcal/week - For Depression Depression Risk Guidelines: Depression Low Risk: Not clinically depressed. Depression Moderate Risk: Mildly depressed. Depression High Risk: Clinically depressed - Family History Family History: Family History (Last Updated 08/29/19 @ 11:54 by Fabi Lemons) Father Heart disease Brother Diabetes Mother COPD (chronic obstructive pulmonary disease) Grandfather Heart disease Motivation - Motivation to Participate On a scale of 1 to 10, how prepared are you to commit to attending program?: 5 - WORRIED ABOUT THE SCIATICA What do you see as barriers to successfully being able to complete the program?: SCIATICA, TREMBLING PAIN DOWN THE RIGHT SIDE. What do you see as the benefits of succesfully completing the program? In other words, what do you hope to get out of participating in the program?: WELL LIKE TO LOSE 5#, BE HEALTHIER. Do you have a spouse or signficant other, family or friends who will help support you to complete the program?: YES
[2019-09-09 13:28] VITALS: BP 132/60; PULSE 74; RESP 14; TEMP 36.5; O2SAT 97; BMI 25.4
[2019-09-09 13:29] VITALS: BP 132/60; BMI 25.4
== END ==
PROVIDERS: PCP Internal Medicine; Visit Provider Internal Medicine Cardiovascular Disease
DX: I10 Essential (primary) hypertension (principal); E78.00 Pure hypercholesterolemia, unspecified; I25.2 Old myocardial infarction

== ENCOUNTER 2019-09-27 10:15 | Outpatient (RCR) | payer MEDICARE, SELFPAY ==
[2019-09-09 13:28] VITALS: BMI 25.4
[2019-09-09 13:29] VITALS: BMI 25.4
== END 2019-09-29 23:59 ==
LOC: CR 10:15
PROVIDERS: PCP Internal Medicine; Referring Provider Internal Medicine Cardiovascular Disease; Visit Provider Internal Medicine Cardiovascular Disease
DX: I25.10 Atherosclerotic heart disease of native coronary artery without angina pectoris (principal); I21.4 Non-ST elevation (NSTEMI) myocardial infarction; Z98.61 Coronary angioplasty status
CPT/HCPCS: 93798

== ENCOUNTER 2019-10-28 10:15 | Outpatient (RCR) | payer MEDICARE, SELFPAY ==
[2019-09-09 13:28] VITALS: BMI 25.4
[2019-09-09 13:29] VITALS: BMI 25.4
--- NOTE | 2019-10-09 08:27 | PCM.CR.ITP ---
Diagnosis - General Information Admitting Diagnosis: S/P PCI W/STENTING Barriers to Learning: Hearing Impairment, Vision Impairment Stage of change r/t lifestyle modifications:: Action Gave educational material for:: Treating Heart Disease, Emotions & Heart Disease, Stress Management & Relaxation, Sleep Disorders & Heart Disease, How The Heart Works, What it means to have Heart Disease, How Coronary Artery Disease is Diagnosed, Heart Procedures, What Heart Medications Do, Risk Factors & Modifications, Living an Active Life, Nutrition - Education/Goals Cardiac Rehabilitation Goals: 1. Maintain the individual as the primary focus of care. 2. To improve the patient's quality of life. 3. Identification of cardiac risk factors and provide cardiac risk factor management. 4. Enhance the psychosocial status of the patient. 5. Reconditioning enough to allow the patient to resume customary activities. 6. Control symptoms of cardiac disease Scale for measuring improvement of personal goals: Enter appropriate number in Comments. 2 = Unchanged. 3 = Slightly Better. 4 = Moderate Improvement. 5 = Met my Goal - Diagnosis & Disease Process Outcomes/Goals: Pt IDs own risk factors & lifestyle modifications by Session 10, Verbalizes symptoms of angina & response by session 3., Pt independently manages Plan/Interventions: Assist Pt to ID & engage in lifestyle modification to reduce CVD risk, Instruct on individual risk factors, Review symptoms of angina & emergency actions, Review secondary diagnosis & identify educational needs. 30 day Reassessments:: Progressing - Safety Referral to Physical Therapy: No Referral to [facility] Case Management: No Fall Risk Assessed:: Yes Assistive Devices:: None Exercise - 30-day Assessment - Visit Date of Eval: 10/09/19 Session #:: 9 - Physician Prescribed Exercise Modalities: Treadmill, Airdyne, NuStep Frequency: 3x/week for 12 weeks [36 sessions] Intensity: 60-80% of age predicted maximum heart rate reserve Current METSs:: 3.5 Target Heart Rate:: 90-117 Current RPE:: 11-12 Maximum Excercise HR:: 107 Resting Blood Pressure: 138/52 Maximum Exercise Blood Pressure: 142/68 EKG Type: NSR to sinus tachycardia rare PACs, ectopic atrial rhythm, vent. trigeminy - Outcomes & Goals Goals:: Verbalizes understanding of THR, RPE & goal METS by session 6, Documents in home exercise log/reports 30 min aerobic 5 day/wk by DC, Demonstrates accurate pulse taking by DC - Intervention & Plan Exercise Program Goals: Instruct on personal THR & RPE, Instruct on MET level & personal MET goal, Show patient to take own pulse /validate performance until accurate, Instruct on home exercise - 30-day Reassessments 30 day Reassessments:: Progressing - Physical Activity Home Exercise Physical Activity - Home Exercise: Safe Exercise, Warm-up, Self-monitoring, Cool-Down, Home Exercise > 30 min Daily, Sitting Time <3 hours/daily - Outcomes & Goals Outcomes/Goals: Demonstrates correct Warm-up/exercise Cool-Down (S3) if = 2.5 METs, Verbalizes symptoms of exercise intolerance by Session 3 (S3), Demonstrate safe equipment use (S3) & follows exercise prescrition (6) - Intervention & Plan Plan/Intervention: Instruct warm-up & cool-down if exercising at > 2 METs, Instruct on symptoms of exercise intolerance & actions to take, Instruct & monitor on saf, Assess intial functional capacity & safety risk - 30-day Reassessments 30 day Reassessments:: Progressing Nutrition - 30-Day Assessment - Program Goals Nutrition Program Goals: LDL <100 optimal. 100 - 129 Near optimal. 130 - 159 Borderline High. 160 - 189 High. Total Cholesterol <200 desirable. 200 - 239 Borderline High. >/= 240 High. HDL < 40 Low >/=60 High. Triglycerides <150 desirable. <199 optimal. VlDL 5 - 40. HgbA1C <7%. BMI <25 Patient has diagnosis of Hyperlipidemia (ICD E78)?: Yes - Visit Date of Assessment:: 10/09/19 Session #:: 9 - Cholesterol/Lipids Determine presence & major risk factors that modify LDL goal: Hypertension or hypertensive medication, Age men > 45 years; women >/= 55 years Outcomes/Goals: Pt IDs own risk factors & lifestyle modifications by Session 10, Verbalizes symptoms of angina & response by session 3., Pt independently manages Intervention/Plan: Advocate for lipid panel cholesterol medication if applicable, Instruct on personal lipid levels & lipid goals/NCEP guidelines, Instruct on cholesterol Referral to dietitian:: Yes 30-day Reassessments:: Progressing - Diabetes (Other Core Measures) Diabetes Type: Not Applicable - Weight Mgt (Other Care) Not Applicable: Yes Height: 5 ft 3 in Weight:: 136 lb BMI: 24.0 Diagnosis Overweight/Obesity BMI> 30% ICD-10 E66: No Diagnosis High BMI/Morbid Obesity BMI> 35% ICD-10 Z68: No Outcomes/Goals: Pt sets, maintains & shows weight loss goal & trend during rehab Intervention/Plan: Instruct on ideal BMI & set weight loss goal w/patient, Assist pt to ID & incorporate diet changes for weight loss by S9, Encourage goal of using 250-300dcal per session for weight loss 30 day Reassessments:: Progressing - Healthy Eating Habits Will attend diet classes:: Yes Outcomes/Goals:: Consume diet rich in vegs,fruits,whole grain/high fiber,fish,lean meat, Limit sat/trans fats,cholesterol & added salts & sugars Intervention/Plan:: Assess current eating habits 30-day Reassessments:: Progressing - Education Gave educational materials for:: Healthy eating Medical- 30-Day Assessment - Visit Date of Eval: 10/09/19 Session #:: 8 - Medication Compliance Preventative Medication(s):: Aspirin, Clopidogrel/P2Y12 inhibit, Statin/lipid, Beta dominic H/O mental health issues: depression, anxiety, or addiction?: No Doesn?t believe in the benefits of treatment?: No Believes medications are unnecessary or harmful?: No Has a concern about medication side effects?: No Expresses concern over the cost of medications?: No Outcomes/Goals: Verbalizes medications,desired effect & common side effects @ DC, Pt self-reports following medication regimen, Keeps card in wallet w/medications listed by DC Interventions/plans: Instruct on medication effects & side effects, Review medication list w/patient every two weeks, Instruct importance of taking meds as ordered & assist problem solving 30-day Reassessments:: Progressing - Tobacco Use Tobacco Use: Non-smoker - Hypertension Hypertension Diagnosis:: Hypertension ICD-10 I10 Resting Blood Pressure:: 138/52 [place] [employer] Hypertension Guidelines: [place] [employer] Hypertension Guidelines. Normal BP Less than 120/80. Elevated BP 120/80. Hypertension Stage 1: BP 130-139/80-89. Hypertesnion Stage 2: BP 140 or higher/90 or higher. Hypertension Crisis: BP higher than 180/120 Peak Exercise Blood Pressure:: 142/68 Outcomes/Goals: Able to verbalize/achieve optimal blood pressure <130/80, Incorporates diet changes & exercise for blood pressure control by DC Interventions/plan: Instruct on optimal blood pressure, hypertension & medications, Instruct on effects of sodium, alcohol, stress, exercise &hypertension 30 day Reassessments:: Progressing - Tobacco Cessation Referral Smoking Cessation Referral:: No Individual Education/Counseling:: No Education Schedule Given:: Yes Psychosocial - 30-Day Assess - VIsit Date of Eval: 10/09/19 Session #:: 8 Not Applicable: Yes History of previous Mental disease:: No - Target Goals Target Goals: Assess presence or absence of depression. Using a valid screening tool, maximizes coping skills. Positive support system - Psychosocial Test Tool Used:: Tashi Roberts QOL Cardiac, PHQ-9 Questionnaire phq-9 Severity: Severity. 1-4 Minimal Depression. 5-9 Mild Depression. 10-14 Moderate Depression. 15-19 Moderately Sever Depression. 20-27 Severe Depression. Rule: - Referral to Behavioral Health PS - Interventions: Yes Referral to Physician if PHQ-9 if score is 5-9: - PHQ-9 score Moderate Depression, Yes Attend Stress Management Classes, No Referral to Behavioral Health if PHQ-9 score >9:, No Referral to [facility] - Outcomes/Goals: See list Psychosocial Outcomes/Goals:: ID's personal stressors & 2 strategies to manage stress by discharge - Intervention/Plan: See List Interventions/Plan:: Assess stressors,coping strategies & signs of derpression on admission, Instruct/assist pt to develop coping & personal stress Mgt strategies, Instruct patient to recognize signs & symptoms of depression, Instruct patient to recog - 30-day Reassessments: 30 day Reassessments:: Progressing Patient Health Questionnaire 30-Day Re-eval Assessment 1. Little interest or pleasure in doing things: Several days 2. Feeling down, depressed, or hopeless: Not at all 3. Trouble falling or staying asleep, or sleeping too much: More than half the days 4. Feeling tired or having little energy: More than half the days 5. Poor appetite or overeating: Nearly every day 6. Feeling bad about yourself -- or that you are a failure or have let yourself or your family down: Not at all 7. Trouble concentrating on things, such as reading the newspaper or watching television: More than half the days 8. Moving or speaking so slowly that other people could have noticed. Or the opposite - being so fidgety or restless that you have been moving around a lot more than usual: More than half the days 9. Thoughts that you would be better off , or of hurting yourself in some way: Not at all How difficult have these problems made it for you to do your work, take care of things at home, or get along with other people?: Not difficult at all Total Score: 12 Self-Efficacy 30-Day Re-eval Assessment We would like to know how confident you are in doing certain activities. Please select your confidence level for:: Select your confidence level for the following using the scale 1-10 where 1 is not at all confident and 10 is totally confident. Your score is the average of all 6 responses. Fatigue: How confident are you that you can keep the fatigue caused by your disease from interfering with the things you want to do? Select Number: 7 Physical Discomfort or Pain: How confident are you that you can keep the physical discomfort or pain of your disease from interfering with the things you want to do? Select Number: 9 Emotional Distress: How confident are you that you can keep the emotional distress caused by your disease from interfering with the things you want to do? Select Number: 7 Other Symptoms or Health Problems: How confident are you that you can keep other symptoms or health problems from interfering with the things you want to do? Select Number: 4 Different Tasks and Activities: How confident are you that you can do the different tasks and activities needed to manage your health condition so as to reduce your need to see a doctor? Select Number: 5 Medication: How confident are you that you can do things other than just taking medication to reduce how much your illness affects your everyday life? Select Number: 5 Total Score:: 6
[2019-10-09 08:36] VITALS: BP 138/52; BP 142/68; BMI 24.0
== END 2019-10-29 23:59 ==
LOC: CR 10:15
PROVIDERS: PCP Internal Medicine; Referring Provider Internal Medicine Cardiovascular Disease; Visit Provider Internal Medicine Cardiovascular Disease
DX: I25.10 Atherosclerotic heart disease of native coronary artery without angina pectoris (principal); Z98.61 Coronary angioplasty status
CPT/HCPCS: 93798

== ENCOUNTER 2019-11-29 10:15 | Outpatient (RCR) | payer MEDICARE, SELFPAY ==
[2019-09-09 13:28] VITALS: BMI 25.4
[2019-10-09 08:36] VITALS: BMI 24.0
[2019-10-30 00:30] VITALS: BP 138/52; BP 142/68
--- NOTE | 2019-11-08 08:43 | CR.ITP_ITS ---
Diagnosis - General Information Admitting Diagnosis: S/P PCI W/ Stenting Personal Learning Style:: Audio/Visual Barriers to Learning: Hearing Impairment, Vision Impairment Stage of change r/t lifestyle modifications:: Action Gave educational material for:: Treating Heart Disease, Emotions & Heart Disease, Stress Management & Relaxation, Sleep Disorders & Heart Disease, How The Heart Works, What it means to have Heart Disease, How Coronary Artery Disease is Diagnosed, Heart Procedures, What Heart Medications Do, Risk Factors & Modifications, Living an Active Life, Nutrition - Education/Goals Cardiac Rehabilitation Goals: 1. Maintain the individual as the primary focus of care. 2. To improve the patient's quality of life. 3. Identification of cardiac risk factors and provide cardiac risk factor management. 4. Enhance the psychosocial status of the patient. 5. Reconditioning enough to allow the patient to resume customary activities. 6. Control symptoms of cardiac disease Scale for measuring improvement of personal goals: Enter appropriate number in Comments. 2 = Unchanged. 3 = Slightly Better. 4 = Moderate Improvement. 5 = Met my Goal - Diagnosis & Disease Process Outcomes/Goals: Pt IDs own risk factors & lifestyle modifications by Session 10, Verbalizes symptoms of angina & response by session 3., Pt independently manages, Other Additional Outcomes/Goals: Plan/Interventions: Assist Pt to ID & engage in lifestyle modification to reduce CVD risk, Instruct on individual risk factors, Review symptoms of angina & emergency actions, Review secondary diagnosis & identify educational needs., Other see comment 30 day Reassessments:: Progressing 30 day Reassessments:: Progressing 30 day Reassessments:: Progressing 30 day Reassessments:: Progressing Final Reassessments:: Progressing - Safety Referral to Physical Therapy: No Referral to [facility] Case Management: No Fall Risk Assessed:: Yes Assistive Devices:: None Exercise - 60-day Assessment - Visit Date of Eval: 11/08/19 Session #:: 21 - Physician Prescribed Exercise Modalities: NuStep, SciFit Frequency: 3x/week for 12 weeks [36 sessions] Intensity: 60-80% of age predicted maximum heart rate reserve Current METSs:: 3.5 Target Heart Rate:: 90-117 Current RPE:: 11-12 Maximum Excercise HR:: 120 Resting Blood Pressure: 144/70 Maximum Exercise Blood Pressure: 160/70 EKG Type: NSR - Outcomes & Goals Goals:: Verbalizes understanding of THR, RPE & goal METS by session 6, Documents in home exercise log/reports 30 min aerobic 5 day/wk by DC, Demonstrates accurate pulse taking by DC, Other additional outcome/goals: see below - Intervention & Plan Exercise Program Goals: Instruct on personal THR & RPE, Instruct on MET level & personal MET goal, Show patient to take own pulse /validate performance until accurate, Instruct on home exercise, Other additional plan/int - 30-day Reassessments 30 day Reassessments:: Progressing - Physical Activity Home Exercise Physical Activity - Home Exercise: Safe Exercise, Warm-up, Self-monitoring, Cool-Down, Home Exercise > 30 min Daily, Sitting Time <3 hours/daily - Outcomes & Goals Outcomes/Goals: Demonstrates correct Warm-up/exercise Cool-Down (S3) if = 2.5 METs, Verbalizes symptoms of exercise intolerance by Session 3 (S3), Demonstrate safe equipment use (S3) & follows exercise prescrition (6), Other: See below - 30-day Reassessments 30 day Reassessments:: Progressing Nutrition - 60-Day Assessment - Program Goals Nutrition Program Goals: LDL <100 optimal. 100 - 129 Near optimal. 130 - 159 Borderline High. 160 - 189 High. Total Cholesterol <200 desirable. 200 - 239 Borderline High. >/= 240 High. HDL < 40 Low >/=60 High. Triglycerides <150 desirable. <199 optimal. VlDL 5 - 40. HgbA1C <7%. BMI <25 Patient has diagnosis of Hyperlipidemia (ICD E78)?: Yes - Visit Date of Assessment:: 11/08/19 Session #:: 21 - Cholesterol/Lipids Determine presence & major risk factors that modify LDL goal: Hypertension or hypertensive medication, Age men > 45 years; women >/= 55 years Outcomes/Goals: Pt IDs own risk factors & lifestyle modifications by Session 10, Verbalizes symptoms of angina & response by session 3., Pt independently manages, Other Additional Outcomes/Goals: Intervention/Plan: Advocate for lipid panel cholesterol medication if applicable, Instruct on personal lipid levels & lipid goals/NCEP guidelines, Instruct on cholesterol, Other additional plan/int Referral to dietitian:: Yes 30-day Reassessments:: Progressing - Weight Mgt (Other Care) Height: 5 ft 3 in Weight:: 63.276 kg BMI: 24.7 Diagnosis Overweight/Obesity BMI> 30% ICD-10 E66: No Outcomes/Goals: Pt sets, maintains & shows weight loss goal & trend during rehab, Other additional outcomes/goals Intervention/Plan: Instruct on ideal BMI & set weight loss goal w/patient, Assist pt to ID & incorporate diet changes for weight loss by S9, Refer to Structured Weight Loss program as appropriate, Encourage goal of using 250- 300dcal per session for weight loss, Other additional plan/interventions 30 day Reassessments:: Progressing - Healthy Eating Habits Will attend diet classes:: Yes Outcomes/Goals:: Consume diet rich in vegs,fruits,whole grain/high fiber,fish,lean meat, Limit sat/trans fats,cholesterol & added salts & sugars, Other additional outcome/goals: Intervention/Plan:: Assess current eating habits, Other Additional plan/interventions 30-day Reassessments:: Progressing Medical- 60-Day Assessment - Visit Date of Eval: 11/08/19 Session #:: 21 - Medication Compliance Preventative Medication(s):: Aspirin, Clopidogrel/P2Y12 inhibit, Statin/lipid, Beta dominic H/O mental health issues: depression, anxiety, or addiction?: No Doesn?t believe in the benefits of treatment?: No Believes medications are unnecessary or harmful?: No Has a concern about medication side effects?: No Expresses concern over the cost of medications?: No Outcomes/Goals: Verbalizes medications,desired effect & common side effects @ DC, Pt self-reports following medication regimen, Keeps card in wallet w/medications listed by DC, Other additional outcome/goals: Interventions/plans: Instruct on medication effects & side effects, Review medication list w/patient every two weeks, Instruct importance of taking meds as ordered & assist problem solving, Other additional 30-day Reassessments:: Progressing - Tobacco Use Tobacco Use: Non-smoker - Hypertension Hypertension Diagnosis:: Hypertension ICD-10 I10 Resting Blood Pressure:: 144/70 [place] [employer] Hypertension Guidelines: [place] [employer] Hypertension Guidelines. Normal BP Less than 120/80. Elevated BP 120/80. Hypertension Stage 1: BP 130-139/80-89. Hypertesnion Stage 2: BP 140 or higher/90 or higher. Hypertension Crisis: BP higher than 180/120 Peak Exercise Blood Pressure:: 160/70 Outcomes/Goals: Able to verbalize/achieve optimal blood pressure <130/80, Incorporates diet changes & exercise for blood pressure control by DC, Other additional outcomes/goals Interventions/plan: Instruct on optimal blood pressure, hypertension & medications, Instruct on effects of sodium, alcohol, stress, exercise &hypertension, Other additional plan/interventions 30 day Reassessments:: Progressing - Tobacco Cessation Referral Smoking Cessation Referral:: No Individual Education/Counseling:: No Education Schedule Given:: Yes Psychosocial - 60-Day Assess - VIsit Date of Eval: 11/08/19 Session #:: 21 History of previous Mental disease:: No - Target Goals Target Goals: Assess presence or absence of depression. Using a valid screening tool, maximizes coping skills. Positive support system - Psychosocial Test Tool Used:: [employer] QOL Cardiac, PHQ-9 Questionnaire phq-9 Severity: Severity. 1-4 Minimal Depression. 5-9 Mild Depression. 10-14 Moderate Depression. 15-19 Moderately Sever Depression. 20-27 Severe Depression. Rule: - Outcomes/Goals: See list Psychosocial Outcomes/Goals:: ID's personal stressors & 2 strategies to manage stress by discharge, Other Additional outcome/goals: - Intervention/Plan: See List Interventions/Plan:: Assess stressors,coping strategies & signs of derpression on admission, Instruct/assist pt to develop coping & personal stress Mgt strategies, Refer to Behavioral Health if appropriate, Refer to Physician if appropriate, Instruct patient to recognize signs & symptoms of depression, Instruct patient to recog, Other additional plan/intervention - 30-day Reassessments: 30 day Reassessments:: Progressing Patient Health Questionnaire 60-Day Re-eval Assessment 1. Little interest or pleasure in doing things: Several days 2. Feeling down, depressed, or hopeless: Not at all 3. Trouble falling or staying asleep, or sleeping too much: More than half the days 4. Feeling tired or having little energy: More than half the days 5. Poor appetite or overeating: Nearly every day 6. Feeling bad about yourself -- or that you are a failure or have let yourself or your family down: Not at all 7. Trouble concentrating on things, such as reading the newspaper or watching television: More than half the days 8. Moving or speaking so slowly that other people could have noticed. Or the opposite - being so fidgety or restless that you have been moving around a lot more than usual: More than half the days 9. Thoughts that you would be better off , or of hurting yourself in some way: Not at all How difficult have these problems made it for you to do your work, take care of things at home, or get along with other people?: Not difficult at all Total Score: 12 Self-Efficacy 60-Day Re-eval Assessment We would like to know how confident you are in doing certain activities. Please select your confidence level for:: Select your confidence level for the following using the scale 1-10 where 1 is not at all confident and 10 is totally confident. Your score is the average of all 6 responses. Fatigue: How confident are you that you can keep the fatigue caused by your disease from interfering with the things you want to do? Select Number: 7 Physical Discomfort or Pain: How confident are you that you can keep the phy sical discomfort or pain of your disease from interfering with the things you want to do? Select Number: 9 Emotional Distress: How confident are you that you can keep the emotional distress caused by your disease from interfering with the things you want to do? Select Number: 7 Other Symptoms or Health Problems: How confident are you that you can keep other symptoms or health problems from interfering with the things you want to do? Select Number: 4 Different Tasks and Activities: How confident are you that you can do the different tasks and activities needed to manage your health condition so as to reduce your need to see a doctor? Select Number: 5 Medication: How confident are you that you can do things other than just taking medication to reduce how much your illness affects your everyday life? Select Number: 6 Total Score:: 6
[2019-11-08 08:56] VITALS: BP 144/70; BP 160/70; BMI 24.7
== END 2019-11-29 23:59 ==
LOC: CR 10:15
PROVIDERS: PCP Internal Medicine; Referring Provider Internal Medicine Cardiovascular Disease; Visit Provider Internal Medicine Cardiovascular Disease
DX: I25.10 Atherosclerotic heart disease of native coronary artery without angina pectoris (principal); Z98.61 Coronary angioplasty status
CPT/HCPCS: 93798

== ENCOUNTER 2019-12-11 10:15 | Outpatient (RCR) | payer MEDICARE, SELFPAY ==
[2019-09-09 13:28] VITALS: BMI 25.4
[2019-11-08 08:56] VITALS: BMI 24.7
[2019-11-30 00:29] VITALS: BP 144/70; BP 160/70
--- NOTE | 2019-12-09 08:27 | CR.ITP_ITS ---
Diagnosis - General Information Admitting Diagnosis: PCI with coronary stent Personal Learning Style:: Audio/Visual Barriers to Learning: Hearing Impairment, Vision Impairment Stage of change r/t lifestyle modifications:: Action Gave educational material for:: Treating Heart Disease, Emotions & Heart Disease, Stress Management & Relaxation, Sleep Disorders & Heart Disease, How The Heart Works, What it means to have Heart Disease, How Coronary Artery Disease is Diagnosed, Heart Procedures, What Heart Medications Do, Risk Factors & Modifications, Living an Active Life, Nutrition - Education/Goals Cardiac Rehabilitation Goals: 1. Maintain the individual as the primary focus of care. 2. To improve the patient's quality of life. 3. Identification of cardiac risk factors and provide cardiac risk factor management. 4. Enhance the psychosocial status of the patient. 5. Reconditioning enough to allow the patient to resume customary activities. 6. Control symptoms of cardiac disease Scale for measuring improvement of personal goals: Enter appropriate number in Comments. 2 = Unchanged. 3 = Slightly Better. 4 = Moderate Improvement. 5 = Met my Goal - Diagnosis & Disease Process Outcomes/Goals: Pt IDs own risk factors & lifestyle modifications by Session 10, Verbalizes symptoms of angina & response by session 3., Pt independently manages, Other Additional Outcomes/Goals: Plan/Interventions: Assist Pt to ID & engage in lifestyle modification to reduce CVD risk, Instruct on individual risk factors, Review symptoms of angina & emergency actions, Review secondary diagnosis & identify educational needs., Other see comment 30 day Reassessments:: Progressing 30 day Reassessments:: Progressing 30 day Reassessments:: Progressing 30 day Reassessments:: Progressing Final Reassessments:: Progressing - Safety Referral to Physical Therapy: No Referral to [facility] Case Management: No Fall Risk Assessed:: Yes Assistive Devices:: None Exercise - 90-day Assessment - Visit Date of Eval: 12/09/19 Session #:: 34 - Physician Prescribed Exercise Modalities: Treadmill, NuStep, SciFit Frequency: 3x/week for 12 weeks [36 sessions] Intensity: 60-80% of age predicted maximum heart rate reserve Current METSs:: 3.5 Target Heart Rate:: 90-117 Current RPE:: 11-12 Maximum Excercise HR:: 106 Resting Blood Pressure: 140/70 Maximum Exercise Blood Pressure: 154/78 EKG Type: NSR - Outcomes & Goals Goals:: Verbalizes understanding of THR, RPE & goal METS by session 6, Documents in home exercise log/reports 30 min aerobic 5 day/wk by DC, Demonstrates accurate pulse taking by DC, Other additional outcome/goals: see below - Intervention & Plan Exercise Program Goals: Instruct on personal THR & RPE, Instruct on MET level & personal MET goal, Show patient to take own pulse /validate performance until accurate, Instruct on home exercise, Other additional plan/int - 30-day Reassessments 30 day Reassessments:: Progressing - Physical Activity Home Exercise Physical Activity - Home Exercise: Safe Exercise, Warm-up, Self-monitoring, Cool-Down, Home Exercise > 30 min Daily, Sitting Time <3 hours/daily - Intervention & Plan Plan/Intervention: Instruct warm-up & cool-down if exercising at > 2 METs, Instruct on symptoms of exercise intolerance & actions to take, Instruct & monitor on saf, Assess intial functional capacity & safety risk, Other See below - 30-day Reassessments 30 day Reassessments:: Progressing Nutrition - 90-Day Assessment - Program Goals Nutrition Program Goals: LDL <100 optimal. 100 - 129 Near optimal. 130 - 159 Borderline High. 160 - 189 High. Total Cholesterol <200 desirable. 200 - 239 Borderline High. >/= 240 High. HDL < 40 Low >/=60 High. Triglycerides <150 desirable. <199 optimal. VlDL 5 - 40. HgbA1C <7%. BMI <25 - Visit Date of Assessment:: 12/09/19 Session #:: 34 - Cholesterol/Lipids Determine presence & major risk factors that modify LDL goal: Hypertension or hypertensive medication, Low HDL cholesterol <40 mg/dL*, Family history of premature CHD in Male < 55 years: female <65 yearsFa, Age men > 45 years; women >/= 55 years Outcomes/Goals: Pt IDs own risk factors & lifestyle modifications by Session 10, Verbalizes symptoms of angina & response by session 3., Pt independently manages, Other Additional Outcomes/Goals: Intervention/Plan: Advocate for lipid panel cholesterol medication if applicable, Instruct on personal lipid levels & lipid goals/NCEP guidelines, Instruct on cholesterol, Other additional plan/int 30-day Reassessments:: Progressing - Diabetes (Other Core Measures) Diabetes Type: Not Applicable - Weight Mgt (Other Care) Height: 5 ft 3 in Weight:: 62.142 kg BMI: 24.3 Diagnosis Overweight/Obesity BMI> 30% ICD-10 E66: No Outcomes/Goals: Pt sets, maintains & shows weight loss goal & trend during rehab, Other additional outcomes/goals Intervention/Plan: Instruct on ideal BMI & set weight loss goal w/patient, Assist pt to ID & incorporate diet changes for weight loss by S9, Refer to Structured Weight Loss program as appropriate, Encourage goal of using 250- 300dcal per session for weight loss, Other additional plan/interventions 30 day Reassessments:: Progressing - Healthy Eating Habits Will attend diet classes:: Yes Outcomes/Goals:: Consume diet rich in vegs,fruits,whole grain/high fiber,fish,lean meat, Limit sat/trans fats,cholesterol & added salts & sugars, Other additional outcome/goals: Intervention/Plan:: Assess current eating habits, Other Additional plan/interventions 30-day Reassessments:: Progressing Medical- 90-Day Assessment - Visit Date of Eval: 12/09/19 Session #:: 34 - Medication Compliance Preventative Medication(s):: Aspirin, Clopidogrel/P2Y12 inhibit, Statin/lipid, Beta dominic H/O mental health issues: depression, anxiety, or addiction?: No Doesn?t believe in the benefits of treatment?: No Believes medications are unnecessary or harmful?: No Has a concern about medication side effects?: No Expresses concern over the cost of medications?: No Outcomes/Goals: Verbalizes medications,desired effect & common side effects @ DC, Pt self-reports following medication regimen, Keeps card in wallet w/medications listed by DC, Other additional outcome/goals: Interventions/plans: Instruct on medication effects & side effects, Review medication list w/patient every two weeks, Instruct importance of taking meds as ordered & assist problem solving, Other additional 30-day Reassessments:: Progressing - Tobacco Use Tobacco Use: Non-smoker Do you use smokeless tobacco?: No 30-day Reassessments:: Progressing - Hypertension Hypertension Diagnosis:: Hypertension ICD-10 I10 Resting Blood Pressure:: 140/70 [place] [employer] Hypertension Guidelines: [place] [employer] Hypertension Guidelines. Normal BP Less than 120/80. Elevated BP 120/80. Hypertension Stage 1: BP 130-139/80-89. Hypertesnion Stage 2: BP 140 or higher/90 or higher. Hypertension Crisis: BP higher than 180/120 Peak Exercise Blood Pressure:: 154/78 Outcomes/Goals: Able to verbalize/achieve optimal blood pressure <130/80, Incorporates diet changes & exercise for blood pressure control by DC, Other additional outcomes/goals - Tobacco Cessation Referral Smoking Cessation Referral:: No Individual Education/Counseling:: No Education Schedule Given:: Yes Psychosocial - 90-Day Assess - VIsit Date of Eval: 12/09/19 Session #:: 34 History of previous Mental disease:: No - Target Goals Target Goals: Assess presence or absence of depression. Using a valid screening tool, maximizes coping skills. Positive support system - Psychosocial Test Tool Used:: Tashi Roberts QOL Cardiac, PHQ-9 Questionnaire phq-9 Severity: Severity. 1-4 Minimal Depression. 5-9 Mild Depression. 10-14 Moderate Depression. 15-19 Moderately Sever Depression. 20-27 Severe Depression. Rule: - Outcomes/Goals: See list Psychosocial Outcomes/Goals:: ID's personal stressors & 2 strategies to manage stress by discharge, Other Additional outcome/goals: - Intervention/Plan: See List Interventions/Plan:: Assess stressors,coping strategies & signs of derpression on admission, Instruct/assist pt to develop coping & personal stress Mgt strategies, Refer to Behavioral Health if appropriate, Refer to Physician if appropriate, Instruct patient to recognize signs & symptoms of depression, Instruct patient to recog, Other additional plan/intervention - 30-day Reassessments: 30 day Reassessments:: Progressing Patient Health Questionnaire 90-Day Re-eval Assessment 1. Little interest or pleasure in doing things: Several days 2. Feeling down, depressed, or hopeless: Not at all 3. Trouble falling or staying asleep, or sleeping too much: More than half the days 4. Feeling tired or having little energy: More than half the days 5. Poor appetite or overeating: Nearly every day 6. Feeling bad about yourself -- or that you are a failure or have let yourself or your family down: Not at all 7. Trouble concentrating on things, such as reading the newspaper or watching television: More than half the days 8. Moving or speaking so slowly that other people could have noticed. Or the opposite - being so fidgety or restless that you have been moving around a lot more than usual: More than half the days 9. Thoughts that you would be better off , or of hurting yourself in some way: Not at all How difficult have these problems made it for you to do your work, take care of things at home, or get along with other people?: Not difficult at all Total Score: 12 Self-Efficacy 90-Day Re-eval Assessment We would like to know how confident you are in doing certain activities. Please select your confidence level for:: Select your confidence level for the following using the scale 1-10 where 1 is not at all confident and 10 is totally confident. Your score is the average of all 6 responses. Fatigue: How confident are you that you can keep the fatigue caused by your disease from interfering with the things you want to do? Select Number: 7 Physical Discomfort or Pain: How confident are you that you can keep the physical discomfort or pain of your disease from interfering with the things you want to do? Select Number: 9 Emotional Distress: How confident are you that you can keep the emotional distress caused by your disease from interfering with the things you want to do? Select Number: 7 Other Symptoms or Health Problems: How confident are you that you can keep other symptoms or health problems from interfering with the things you want to do? Select Number: 4 Different Tasks and Activities: How confident are you that you can do the different tasks and activities needed to manage your health condition so as to reduce your need to see a doctor? Select Number: 5 Medication: How confident are you that you can do things other than just taking medication to reduce how much your illness affects your everyday life? Select Number: 6 Total Score:: 6
[2019-12-09 08:37] VITALS: BP 140/70; BP 154/78; BMI 24.3
== END 2019-12-30 23:59 ==
LOC: CR 10:15
PROVIDERS: PCP Internal Medicine; Referring Provider Internal Medicine Cardiovascular Disease; Visit Provider Internal Medicine Cardiovascular Disease
DX: I25.10 Atherosclerotic heart disease of native coronary artery without angina pectoris (principal); Z95.5 Presence of coronary angioplasty implant and graft
CPT/HCPCS: 93798

== ENCOUNTER 2020-05-05 09:20 | Inpatient (IN) | payer MEDICARE, SELFPAY ==
[2019-12-09 08:37] VITALS: BMI 24.3
[2019-12-30 11:09] VITALS: BMI 24.8
[2020-05-05] VITALS (23 sets, daily range): BP systolic 75–171; BP diastolic 49–97; PULSE 64–133; RESP 12–21; TEMP 36.1–36.6; O2SAT 93–100; BMI 24.7; BMI 25.8; BMI 25.7
--- NOTE | 2020-05-05 09:34 | RAD_ITS ---
STUDY: X-RAY CHEST REASON FOR EXAM: Female, 84 years old. WEAKNESS TECHNIQUE: Single AP portable view of the chest. COMPARISON: Comparison is made with prior examination dated 08/19/2019. FINDINGS: EKG electrodes are seen. The lungs are clear and expanded. There is no demonstrated pleural abnormality. Normal size heart. Normal mediastinum and yolanda. Normal visualized pulmonary arteries. There is atherosclerotic calcification of the aortic arch with tortuosity. Normal visualized thoracic spine. There is degenerative osteoarthritis of the bilateral shoulders. There is no demonstrated abnormality of the visualized soft tissue structures of the upper abdomen. RAD/Chest 1 View (Portable) IMPRESSION: No acute abnormality is seen. Electronically Signed: González Frye, at 10:06 EST , Service support ,
--- NOTE | 2020-05-05 09:34 | EKG12_ITS ---
Test Reason : CP Blood Pressure : / mmHG Vent. Rate : 118 BPM Atrial Rate : 105 BPM P-R Int : 000 ms QRS Dur : 088 ms QT Int : 324 ms P-R-T Axes : 000 025 196 degrees QTc Int : 454 ms Atrial fibrillation with rapid ventricular response Nonspecific ST and T wave abnormality Abnormal ECG Confirmed by CRISTOFER SOTO, JUSTINA ([id number]), sound editor NEPTALI ORTIZ ([id number]) on 05/06/2020 9:33:42 AM Referred By: GUILHERME Confirmed By:JUSTINA CLEVELAND MD
--- NOTE | 2020-05-05 09:35 | ED.DCSUM_ITS ---
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 Patient was to have an injection in her back. Patient had her blood pressure checked and noted that it was low and referred to the emergency department. Patient states that she just feels kind of droopy. She denies any chest pain or shortness of breath. She denies abdominal pain. The pain in her low back is a chronic pain. She did not feel dizzy with walking and standing. Patient did take her blood pressure medication this morning. Patient does have history of prior DC about a year ago and at that time she believes she had atrial fibrillation. She is not currently anticoagulated. She denies any recent illness or COVID-19 exposures.] Physical Examination: [HEENT-PERRLA, EOMI. Cranial nerves II through XII grossly intact. TMs clear. Mucous membranes moist. No adenopathy. Cardiovascular-irregularly irregular with no murmurs auscultated. Rate is tachycardic with a rates in the 1 teens to 120s. Lungs-clear to auscultation, chest wall stable without crepitus or subcu emphysema Abdomen-normoactive bowel sounds, soft, nontender, no rebound or rigidity, no peritoneal signs. Extremities-intact ?4, normal range of motion, normal pulses, atraumatic] Test Results: [EKG obtained arrival showed atrial fibrillation with a rapid ventricular response with a rate of [address] changes. When compared with prior EKG from August 20, 2019 at that time she was in a sinus rhythm.] CBC with differential showing a 9.0, hemoglobin 13, hematocrit 42, placed 298. Chemistries unremarkable. BUN 29 creatinine 1.61. Troponin was 0.068. Chest x-ray showed nothing acute as interpreted by myself and radiology in agreement. Emergency Department Course and Treatment: [The line established on arrival. Patient was given 500 cc fluid bolus and that initially did improve her blood pressure into the 100 systolic range however then began dropping again into the 80s systolic range. Patient was not diaphoretic or in any distress. She was mentating normally. I discussed case with cardiology who recommended digoxin 0.5 mg IV as well as heparin drip. I discussed case with hospitalist who will evaluate patient for admission. Patient was ordered a second 500 cc fluid bolus. I do not feel patient needs to be acutely cardioverted as she is unaware of her A. fib and is unclear how long she has been in A. fib. She is not unstable at this time however will monitor and if should she become unstable she will require cardioversion.] Treatment Plan: [Admit] Disposition: [Admit] Impression: [A. fib RVR Hypotension Acute kidney injury] This note was generated with [employer] dictation software. It may contain incorrect words, spelling, and punctuation that were not noted in review of the chart prior to signing ED Disposition - Plan for ED Patient: Referrals: Gladys Pickett MD [Primary Care Provider] -
[2020-05-05 09:54] LABS: Absolute Lymphocyte Count 3.57 X10^3/uL (0.83-4.51); Absolute Neutrophil Count 4.5 X10^3/uL (2.0-7.7); Basophil# 0.03 X10^3/uL; Basophil% 0.3 % (0-1); Eosinophil# 0.24 X10^3/uL; Eosinophils% 2.7 % (0-5); Hematocrit 41.7 % (37-47); Hemoglobin 13.2 g/dL (12.0-15.0); Lymphocyte # 3.57 X10^3/ul (4.0); Lymphocyte % 39.5 % (19-41); Mean Corp Hgb Conc 31.7 g/dL (32-36); Mean Corpuscular Hgb 29.5 pg (27.0-32.0); Mean Corpuscular Volume 93.1 fL (81-99); Mean Platelet Vol. 9.6 fl (6.2-12.0); Monocyte# 0.68 X10^3/uL; Monocyte% 7.5 % (0-10); NRBC Flagged by Analyzer 0 % (0-5); Neutrophil # 4.48 X10^3/uL (2.7-7.7); Neutrophil % 49.6 % (47-70); Platelet Count 298 K/mm3 (150-450); RBC Distribution Width CV 14.7 % (11.6-14.6); Red Blood Count 4.48 M/mm3 (4.2-5.4)
[2020-05-05 10:04] LABS: Anion Gap 8 (5-15); BUN 29 mg/dL (7-18); Calcium,Total 9.4 mg/dL (8.5-10.1); Chloride 100 mmol/L (98-107); Creatinine, Serum 1.61 mg/dL (0.55-1.02); EST Glomerular Filtration Rate 32 mL/min (>60); Est Glom Filt Rate - Afr Amer 39 mL/min (>60); Glucose 121 mg/dL (74-106); Sodium Level 137 mmol/L (136-145)
[2020-05-05 10:11] LABS: Lactic Acid 1.8 mmol/L (0.4-1.9)
[2020-05-05] MEDS: 0.9% Normal Saline 1,000 ML 150 ML IV (10:23)
[2020-05-05] MEDS: Digoxin 250 MCG/ML Ampul 500 MCG IV (10:53)
[2020-05-05 11:04] LABS: Partial Thromboplast Time 25.3 Seconds (24.1-36.2)
--- NOTE | 2020-05-05 11:10 | NURSING ---
PCU TERELETSKY AFIB RVR, HYPOTENSION
[2020-05-05] MEDS: HEPARIN/D5w 25,000 UNITS 25,000 UNITS/250 ML IV.SOLN. 10 UNITS IV (11:33)
[2020-05-05] MEDS: Heparin Injection (Vial) 5,000 UNIT/ML VIAL 4500 UNIT IV (11:34)
--- NOTE | 2020-05-05 13:03 | ECHOCS_ITS ---
Reason For Study: AFIB/FLUTTER Procedure This was a 2D Doppler, Color Flow transthoracic echocardiogram. The study was technically difficult. Contrast injection was performed. Exam performed portable in patient room. Left Ventricle Normal LV size. Left ventricular systolic function is normal. The estimated ejection fraction is 65 %. Unable to assess diastolic dysfunction. No regional wall motion abnormalities noted. Right Ventricle Normal RV size. Normal systolic function. Atria The left atrium is mildly enlarged. Normal right atrium. No doppler evidence for ASD. Mitral Valve There is mild mitral annular calcification. Extension of the mitral annular calcification onto the base of the posterior mitral valve leaflet. Mild (1+) mitral valve insufficiency. Tricuspid Valve Normal tricuspid valve. Mild to moderate (1-2+) tricuspid valve insufficiency. Right ventricular systolic pressure estimated to be 35 mmHg. Aortic Valve Trisinus/trileaflet aortic valve. Normal aortic valve. Pulmonic Valve The pulmonic valve is not well visualized. Great Vessels The aortic root is not well visualized. Pericardium/Pleural No pericardial effusion. Medication Diluted definity 2.0ml given slow IV push to enhance endocardial definition. MMode/2D Measurements & Calculations LVIDd: 4.0 cm IVSd: 0.78 cm LAV(MOD-bp): 57.9 ml LVIDs: 2.4 cm LVPWd: 0.89 cm RVDd: 3.1 cm FS: 39.9 % LAV(MOD-bp) Indexed: 34.0 ml/m2 LAV(MOD-sp2): 65.9 ml LAV(MOD-sp4): 51.7 ml LA dimension(2D): 3.6 cm LA A4 area: 18.8 cm2 RA A4 area: 13.6 cm2 Doppler Measurements & Calculations MV E max kishan: 115.4 cm/sec Ao V2 max: 133.3 cm/sec LV V1 max: 107.4 cm/sec Ao max P.1 mmHg LV V1 max P.6 mmHg TR max kishan: 257.5 cm/sec TR max P.5 mmHg Interpretation Summary The study was technically difficult. Contrast injection was performed. Left ventricular systolic function is normal. The estimated ejection fraction is 65 %. The left atrium is mildly enlarged. There is mild mitral annular calcification. Extension of the mitral annular calcification onto the base of the posterior mitral valve leaflet. Mild (1+) mitral valve insufficiency. Mild to moderate (1-2+) tricuspid valve insufficiency. Right ventricular systolic pressure estimated to be 35 mmHg. Unable to assess diastolic dysfunction. Ordering Physician: Venkata Aguiar Referring Physician: Gladys Pickett Performed By: Norma Campbell, RDCS, RVT
[2020-05-05] MEDS: 0.9% Saline Lock 10 ML Syringe IV (14:26)
[2020-05-05] MEDS: Amiodarone 360 MG in Dextrose 5% Viaflo Bag 192.8 ML 33.3 MG CONT INF (14:50)
--- NOTE | 2020-05-05 14:54 | HP.PCM_ITS ---
Problem List (1) Pure hypercholesterolemia Status: Chronic (2) ALVERTO on CPAP Status: Chronic (3) Essential hypertension Status: Chronic (4) Atherosclerotic heart disease of [place] coronary artery without angina pectoris Status: Chronic Qualifiers: (5) Presence of stent in coronary artery Status: Chronic Comment: Successful PTCA/LIZBETH to LCX per cath 08/20/19; PCI/LIZBETH to mid LAD 01/15/09; PCI/BMS to prox LAD 08/20/07 (6) Atrial fibrillation status post cardioversion Status: Chronic (7) NSTEMI (non-ST elevated myocardial infarction) Status: Resolved History of Present Illness Date of Admission: 05/05/20 Chief Complaint: Low blood pressure, elevated heart rate. The patient is a 84 year old F who presents to the emergency room from pain management office due to low blood pressure and elevated heart rate. Patient states she was at pain management office for back injection when she felt droopy and lethargic. Her blood pressure was noted to be low and heart rate increased at that time. She denies chest pain, shortness of breath, palpitations. Patient states she has occasional palpitations at home and has a history of atrial fibrillation. She denies recent illness. Denies associated symptoms or complaints. She states she is now feeling improved. She has a past medical history of CAD with history of PTCA/PCI to LAD, paroxysmal atrial fibrillation, hypertension, hyperlipidemia, ALVERTO on CPAP. Past Medical History Past Medical History (Chronic Problems): Chronic Problems (Last Reviewed 12/30/19 @ 11:16 by Fabi Lemons) Pure hypercholesterolemia (Chronic) ALVERTO on CPAP (Chronic) Essential hypertension (Chronic) Atherosclerotic heart disease of [place] coronary artery without angina pectoris (Chronic) Presence of stent in coronary artery (Chronic ~08/20/19) Successful PTCA/LIZBETH to LCX per cath 08/20/19; PCI/LIZBETH to mid LAD 01/15/09; PCI/BMS to prox LAD 08/20/07 Atrial fibrillation status post cardioversion (Chronic) Medical History: Medical History (Last Reviewed 12/30/19 @ 11:16 by Fabi Lemons) Pure hypercholesterolemia (Chronic) E78.00 ALVERTO on CPAP (Chronic) G47.33, Z99.89 Essential hypertension (Chronic) I10 Atherosclerotic heart disease of [place] coronary artery without angina pectoris (Chronic) I25.10 Presence of stent in coronary artery (Chronic) Onset Date: ~08/20/19 Z95.5 Successful PTCA/LIZBETH to LCX per cath 08/20/19; PCI/LIZBETH to mid LAD 01/15/09; PCI/BMS to prox LAD 08/20/07 Atrial fibrillation status post cardioversion (Chronic) I48.91 NSTEMI (non-ST elevated myocardial infarction) (Resolved) I21.4 CAD (coronary artery disease) I25.10 Hypokalemia E87.6 HTN (hypertension) I10 Hyperlipidemia E78.5 Allergies meperidine [From Demerol] Adverse Reaction (Verified 05/05/20 09:20) Nausea Home Medications: Ambulatory Orders Medication Instructions Recorded Atorvastatin Calcium 40 mg PO DAILY 08/19/19 Clopidogrel Bisulfate [Clopidogrel] 75 mg PO DAILY 08/19/19 Gabapentin [Neurontin] 300 mg PO BID 08/19/19 Gabapentin [Neurontin] 600 mg PO QHS 08/19/19 Hydrochlorothiazide [Hctz] 25 mg PO DAILY 08/19/19 Losartan Potassium 50 mg PO BID 08/19/19 Metoprolol Tartrate 50 mg PO BID 08/19/19 Pramipexole Di-HCl [Mirapex] 0.25 mg PO BID PRN PRN 08/19/19 Sertraline HCl [Zoloft] 50 mg PO DAILY 08/19/19 Sucralfate [Carafate] 1 tab PO PRN PRN 08/19/19 Aspirin E.C. [Ecotrin] 81 mg PO DAILY@0800 tab 08/21/19 oxybutynin chloride 10 mg 10 mg PO DAILY 12/30/19 tablet,extended release 24 hr trazodone 50 mg tablet 50 mg PO QHS PRN 12/30/19 isosorbide mononitrate 60 mg 60 mg PO DAILY #90 tab 04/13/20 tablet,extended release 24 hr Surgical History: Surgical History (Last Reviewed 05/05/20 @ 15:19 by Tila Aguilera NP, ELECTRICAL SYSTEMS DRAFTER-C) Presence of coronary angioplasty implant and graft Onset Date: ~08/20/19 Z95.5 Successful PTCA/LIZBETH to LCX per cath 08/20/19 History of appendectomy Z90.49 History of carpal tunnel surgery Z98.890 History of left breast biopsy Z98.890 History of total hysterectomy Z90.710 S/P PTCA (percutaneous transluminal coronary angioplasty) Z98.61 Surgical History: angioplasty - cardiac stent, last placed circa 2006 Psychiatric History: No pertinent psych hx 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: No pertinent CHEMICAL ENGRAVER history Lives: Alone Smoking Status: Never smoker Alcohol: None Drugs: None - *Family History Maternal Family History: Family History (Last Reviewed 05/05/20 @ 15:05 by Tila Aguilera ELECTRICAL SYSTEMS DRAFTER, ELECTRICAL SYSTEMS DRAFTER-C) Father Heart disease Brother Diabetes Mother COPD (chronic obstructive pulmonary disease) Grandfather Heart disease History Items: COPD Paternal Family History: Family History (Last Reviewed 05/05/20 @ 15:05 by Tila Aguilera NP, ELECTRICAL SYSTEMS DRAFTER-C) Father Heart disease Brother Diabetes Mother COPD (chronic obstructive pulmonary disease) Grandfather Heart disease History Items: Heart Disease Review of Systems Constitutional: Denies: Chills, Fever, Weight Change HEENT: Denies: Head Aches, Sinus Congestion, Sinus Drainage Cardiovascular: Denies: Chest Pain, Palpitations Respiratory: Denies: Cough, Shortness of breath at rest, Sputum production Gastrointestinal: Denies: Abdominal Pain, Nausea, Vomiting Genitourinary: Denies: Dysuria Musculoskeletal: Denies: Joint Pain, Joint Tenderness Skin: Denies: Rash, Wounds Neurological: Denies: Numbness, Tingling, Focal weakness Psychiatric: Denies: Anxiety, Depression, Homicidal Ideations, Suicidal Ideations Hematologic/ Lymphatic: Denies: Easy Bruising, Easy Bleeding VTE Information - Inpt Only VTE Present on Admission: No VTE Mechan Device Prophylaxis: None VTE Pharm Prophylaxis ordered?: Yes - Physical Exam Vitals/I&O's: Vital Signs Temp Pulse Resp BP Pulse Ox 97.9 F 103 H 21 H 118/72 95 05/05/20 13:33 05/05/20 14:50 05/05/20 14:50 05/05/20 14:50 05/05/20 14:50 Oxygen Delivery Method Room Air Weight: 145 lb 5 oz Body Mass Index (BMI) 25.7 Intake and Output for Last 24 Hours 05/03/20 05/04/20 05/05/20 23:59 23:59 23:59 Intake Total 1031.17 / 1031.17 Balance 1031.17 / 1031.17 General: Alert, Oriented x3, Cooperative HEENT: Atraumatic, PERRLA, EOMI, Normocephalic Neck: Supple, No JVD, Negative Carotid Bruits Lungs: Clear to auscultation, Normal air movement Cardiovascular: - - A. fib Abdomen: Bowel Sounds Present, Soft, Non Tender, Non-Distended Extremities: No clubbing, No cyanosis, No edema, Capillary Refill Less than 3 Seconds Skin: No rashes, No breakdown Musculoskeletal: No Tenderness to Palpation of Joints or Extremities Neurological: Cranial nerves II-XII grossly intact, Neuro grossly intact Psych/Mental Status: Normal Affect, Appropriate Laboratory Results 05/05/20 09:35: WBC 9.0, RBC 4.48, Hgb 13.2, Hct 41.7, MCV 93.1, MCH 29.5, MCHC 31.7 L, RDW Std Deviation 50.0 H, RDW Coeff of Brian 14.7 H, Plt Count 298, MPV 9.6, Immature Gran % (Auto) 0.400, Neut % (Auto) 49.6, Lymph % (Auto) 39.5, [place] % (Auto) 7.5, Eos % (Auto) 2.7, Baso % (Auto) 0.3, Absolute Neuts (auto) 4.5, Absolute Lymphs (auto) 3.57, Nucleated RBC % 0 05/05/20 09:35: Sodium 137, Potassium 4.0, Chloride 100, Carbon Dioxide 29.0, Anion Gap 8, BUN 29 H, Creatinine 1.61 H, Estim Creat Clear Calc 21.90, Est GFR (MDRD) Af Amer 39 L, Est GFR (MDRD) Non-Af 32 L, BUN/Creatinine Ratio 18.0, Glucose 121 H, Calcium 9.4, Troponin I 0.068 H 05/05/20 09:35: Lactic Acid 1.8 05/05/20 09:35: APTT 25.3 05/05/20 13:42: Troponin I 0.170 H Current Medications Acetaminophen (Acetaminophen 325 Mg Tablet) 650 mg PO Q6H PRN PRN PRN Reason: Pain Score 1-10/Temp > 100.7 F Aspirin (Aspirin E.C. 81 Mg Tablet) 81 mg PO DAILY@0800 ROBERT Atorvastatin Calcium (Atorvastatin Calcium 40 Mg Tablet) 40 mg PO HS ROBERT Clopidogrel Bisulfate (Clopidogrel Bisulfate 75 Mg Tablet) 75 mg PO DAILY ROBERT Enoxaparin Sodium (Enoxaparin 80 Mg/0.8 Ml Syringe) 70 mg SC DAILY [facility] Gabapentin (Gabapentin 300 Mg Capsule) 300 mg PO BID@0800,1200 [facility] Gabapentin (Gabapentin 300 Mg Capsule) 600 mg PO QHS [facility] Sodium Chloride () 1,000 mls @ 75 mls/hr IV .[id number] [facility] Amiodarone HCl 360 mg/ (Dextrose) 200 mls @ 33.333 mls/hr CONT INF .Q6H [facility] Stop: 05/05/20 20:29 Last Admin: 05/05/20 14:50 Dose: 1 mg/min, 33.3 mls/hr Documented by: Amiodarone HCl 360 mg/ (Dextrose) 200 mls @ 16.667 mls/hr CONT INF .Q12H [facility] Stop: 05/06/20 14:29 Isosorbide Mononitrate (Isosorbide Mononitrate 60 Mg Tablet) 60 mg PO DAILY [facility] Losartan Potassium (Losartan Potassium 50 Mg Tablet) 50 mg PO BID [facility] Metoprolol Tartrate (Metoprolol Tartrate 50 Mg Tablet) 50 mg PO BID [facility] Ondansetron HCl (Ondansetron 4 Mg/2 Ml Vial) 4 mg IV Q8H PRN PRN PRN Reason: NAUSEA/VOMITING Pramipexole Dihydrochloride (Pramipexole Di-Hcl 0.25 Mg Tablet) 0.25 mg PO BID PRN PRN PRN Reason: [place] Sertraline HCl (Sertraline 50 Mg Tablet) 50 mg PO DAILY [facility] Tolterodine Tartrate (Tolterodine Tartrate 2 Mg Cap.Sa) 2 mg PO DAILY [facility] Trazodone HCl (Trazodone 50 Mg Tablet) 50 mg PO QHS PRN PRN Reason: SLEEP Assessment/Plan All Active Problems (Last Reviewed 12/30/19 @ 11:16 by Fabi Lemons) NSTEMI (non-ST elevated myocardial infarction) (Resolved) 1. Atrial fibrillation with RVR, history of paroxysmal atrial fibrillation- cardiology consulted. Initiated on amiodarone drip. Trend enzymes. Check TSH, mag. Obtain echocardiogram. Renally dosed Lovenox. Continue home metoprolol regimen. 2. Abnormal troponin-trend enzymes. Cardiology following. 3. Acute kidney injury-IV fluids, trend BMP. 4. CAD with history of PTCA/PCI to LAD-continue aspirin, statin, Plavix, isosorbide, metoprolol, losartan. 5. Hypertension-continue home medication regimen with hold parameters. 6. Hyperlipidemia-continue statin. 7. ALVERTO on CPAP-continue home CPAP regimen. DVT prophylaxis-Lovenox subcu This patient was seen by BLANCO Duckworth under the supervision of Dr. Aguiar.
--- NOTE | 2020-05-05 15:15 | PCM.CONS.C ---
Reason for Consult Date of Consultation: 05/05/20 Reason for Consultation: Atrial fibrillation with RVR. Hypotension. Abnormal TI levels. CAD s/p PCI. HLD. HTN. ALVERTO. Renal Insufficiency History of Present Illness: The patient is a 84 year [id number] white female with a past history of hyperlipidemia, hypertension, CAD, PCI, paroxysmal atrial fibrillation-remote, ALVERTO, who is referred for atrial fibrillation with rapid ventricular response with concerns of hypotension and abnormal cardiac enzymes. The patient states she has felt somewhat fatigued and and has been described as her family is being somewhat short of breath recently. She states this may have been going on for several days or longer than that. She has not described any ongoing chest discomfort and she denies palpitations. She does not describe any ongoing acute orthopnea or PND. She states her lower extremities can wax and wane with respect to peripheral pitting edema. There has been no near syncope or syncope. She presented to her pain management physician team this day and noted her complaints. She was found to be in an irregular cardiac rhythm and appeared to be hypotensive. She was taken to the [facility] emergency department where she was found to be in atrial fibrillation with RVR with concerns of hypotension. She was treated medically with a combination of IV digitalis and IV fluids. She had an initial troponin I level which was indeterminant with a subsequent repeat level being indeterminant. Her ECG demonstrated atrial fibrillation with RVR with nonspecific ST/T wave abnormality. A chest x-ray reported no acute cardiopulmonary disease process. She was placed in the PCU for further evaluation and care. At the present time she appears to be resting comfortably. She continues to states she cannot sounds her irregular rhythm or cardiac rate. [] Past Medical History Allergies/Adverse Reactions: Allergies meperidine [From Demerol] Adverse Reaction (Verified 05/05/20 09:20) Nausea Home Medications: Ambulatory Orders Medication Instructions Recorded Atorvastatin Calcium 40 mg PO DAILY 08/19/19 Clopidogrel Bisulfate [Clopidogrel] 75 mg PO DAILY 08/19/19 Gabapentin [Neurontin] 300 mg PO BID 08/19/19 Gabapentin [Neurontin] 600 mg PO QHS 08/19/19 Hydrochlorothiazide [Hctz] 25 mg PO DAILY 08/19/19 Losartan Potassium 50 mg PO BID 08/19/19 Metoprolol Tartrate 50 mg PO BID 08/19/19 Pramipexole Di-HCl [Mirapex] 0.25 mg PO BID PRN PRN 08/19/19 Sertraline HCl [Zoloft] 50 mg PO DAILY 08/19/19 Sucralfate [Carafate] 1 tab PO PRN PRN 08/19/19 Aspirin E.C. [Ecotrin] 81 mg PO DAILY@0800 tab 08/21/19 oxybutynin chloride 10 mg 10 mg PO DAILY 12/30/19 tablet,extended release 24 hr trazodone 50 mg tablet 50 mg PO QHS PRN 12/30/19 isosorbide mononitrate 60 mg 60 mg PO DAILY #90 tab 04/13/20 tablet,extended release 24 hr Past Medical History (Chronic Problems): Chronic Problems (Last Reviewed 12/30/19 @ 11:16 by Fabi Lemons) Pure hypercholesterolemia (Chronic) ALVERTO on CPAP (Chronic) Essential hypertension (Chronic) Atherosclerotic heart disease of [place] coronary artery without angina pectoris (Chronic) Presence of stent in coronary artery (Chronic ~08/20/19) Successful PTCA/LIZBETH to LCX per cath 08/20/19; PCI/LIZBETH to mid LAD 01/15/09; PCI/BMS to prox LAD 08/20/07 Atrial fibrillation status post cardioversion (Chronic) Surgical History: angioplasty - cardiac stent, last placed circa 2006 Psychiatric History: No pertinent psych hx 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: No pertinent ELECTRONIC WIRER history - *Family History Maternal Family History: Family History (Last Reviewed 05/05/20 @ 15:05 by Tila Aguilera NP, ZONE SUPERVISOR FIREARMS-C) Father Heart disease Brother Diabetes Mother COPD (chronic obstructive pulmonary disease) Grandfather Heart disease History Items: COPD Paternal Family History: Family History (Last Reviewed 05/05/20 @ 15:05 by Tila Aguilera NP, ZONE SUPERVISOR [employer]AR[employer]-C) Father Heart disease Brother Diabetes Mother COPD (chronic obstructive pulmonary disease) Grandfather Heart disease History Items: Heart Disease Lives: Alone Smoking Status: Never smoker Alcohol: None Drugs: None Review of Systems - Review of Systems General: Reports: Fatigue. Denies: Fever, Night Sweats Cardiovascular: Reports: Shortness of Breath. Denies: Chest Discomfort, Orthopnea, PND, Peripheral Edema, Palpitations, Lightheadedness, Dizziness, Near Syncope, Syncope Respiratory: Reports: Shortness of Breath. Denies: Cough, Sputum Production, Hemoptysis Gastrointestinal: Denies: Hematemesis, Hematochezia, Melena Genitourinary: Denies: Dysuria, Hematuria Skin: Denies: Rash Subjectve: This is an 84-year-old white female who appears to be resting comfortably at the moment in no acute distress. Objective: Vital Signs Temp Pulse Resp BP Pulse Ox 97.9 F 108 H 16 108/56 L 93 05/05/20 13:33 05/05/20 15:00 05/05/20 15:00 05/05/20 15:00 05/05/20 15:00 Oxygen Delivery Method Room Air Weight: 145 lb 5 oz Body Mass Index (BMI) 25.7 Intake and Output for Last 24 Hours 05/03/20 05/04/20 05/05/20 23:59 23:59 23:59 Intake Total 1036.72 / 1036.72 Balance 1036.72 / 1036.72 General: Awake, Alert, Oriented x 3, Cooperative, No Acute Distress HEENT: Atraumatic, Normocephalic, PERRL, EOMI, Sclera Non Icteric Neck: Supple, Good ROM, No JVD Lungs: Clear to auscultation Cardiovascular: Irregular Rhythm, Normal S1, Normal S2 Abdomen: Bowel Sounds Present, Soft, Non Tender Extremities: No edema Neurological: No Focal Motor or Sensory Deficit Psych/Mental Status: Appropriate 05/05/20 09:35: WBC 9.0, RBC 4.48, Hgb 13.2, Hct 41.7, MCV 93.1, MCH 29.5, MCHC 31.7 L, Plt Count 298, MPV 9.6, Immature Gran % (Auto) 0.400, Neut % (Auto) 49.6, Lymph % (Auto) 39.5, [place] % (Auto) 7.5, Eos % (Auto) 2.7, Baso % (Auto) 0.3, Absolute Neuts (auto) 4.5, Nucleated RBC % 0 05/05/20 09:35: Sodium 137, Potassium 4.0, Chloride 100, Carbon Dioxide 29.0, Anion Gap 8, BUN 29 H, Creatinine 1.61 H, Est GFR (MDRD) Af Amer 39 L, Est GFR (MDRD) Non-Af 32 L, BUN/Creatinine Ratio 18.0, Glucose 121 H, Calcium 9.4, Troponin I 0.068 H 05/05/20 09:35: Lactic Acid 1.8 05/05/20 09:35: APTT 25.3 05/05/20 13:42: Troponin I 0.170 H Rhythm: Atrial fibrillation EKG: Atrial fibrillation with rapid ventricular response; nonspecific ST/T wave abnormality Echocardiogram: 08/20/2019 Interpretation Summary The study was technically difficult. Segmental dysfunction with preserved ejection fraction (see wall motion). The estimated ejection fraction is 65 %. The left atrium is mildly enlarged. There is mild mitral annular calcification. Extension of the mitral annular calcification onto the base of the posterior mitral valve leaflert. Mild focal mitral valve calcification of the anterior leaflet. Moderate (2+) mitral valve insufficiency. Mild to moderate (1-2+) tricuspid valve insufficiency. Trivial pulmonic valve insufficiency. Right ventricular systolic pressure estimated to be 55 mmHg. Transmitral diastolic flow velocities suggest diastolic dysfunction (pseudonormal pattern). She did have previous diagnostic cardiac catheterization performed at [facility] on 01-15-2009. At that time her left ventricle had an LVEF of 55% with apical left ventricular akinesis, the left main coronary artery was patent, the LAD was noted to have 70% stenosis, the first diagonal branch had 50% stenosis, the second diagonal branch had 50% stenosis, the third diagonal branch had 50% stenosis, the LCx had 10% stenosis, the RCA was small in diameter with 70% stenosis. She subsequently underwent LAD PCI. Cardiac cath: 08/20/2019 CONCLUSIONS Elevated Left Ventricular End Diastolic Pressure Segmented LV systolic dysfunction- Mild LVEF: by LV gram 70 % [place] Multivessel CAD RECOMMENDATIONS Risk factor modification Medical therapy Referred for immediate PCI DESCRIPTION OF PROCEDURE The patient arrived to the procedure lab. The risks and benefits of the procedure as well as a full description of our services here and current unavailability of surgical backup were fully explained to the patient and/or their significant other prior to the catheterization. The Timeout was completed, verifying the correct patient and procedure. The patient's procedural site was prepped and draped in the usual fashion. Local anesthetic was given subcutaneously to right radial region with Lidocaine 2%. Using a modified Seldinger technique, arterial access was obtained via the right radial artery, a 6Fr sheath was inserted. Left Coronary Artery selective angiography was performed in multiple views using a 5 Fr. 4.0 [place] catheter. Right Coronary Artery selective angiography was then performed in multiple views using a 5 Fr. 4.0 [place] catheter. Left Ventriculography was performed in AGUILAR projection using a 5 Fr. Pigtail catheter. LV to AO pullback pressures were then recorded.The arterial sheath was pulled and a TR Band was applied for hemostasis-12cc CORONARY ANGIOGRAPHY DOMINANCE: Left Dominant LEFT HEART ASSESSMENT Left Ventricular Ejection Fraction: by LV Gram 70 % Inferior Apical Akinesis Elevated Left Ventricular End Diastolic Pressure LVEDP: 21 mmHg LEFT MAIN: Mild luminal irregularities LEFT ANTERIOR DESCENDING ARTERY: PROX LAD: Mild luminal irregularities, 25 % Stenosis MID LAD: Previously placed stent is patent with mild luminal irregularities, 25 % Stenosis DIAGONAL 1: Proximal - 75 % Stenosis (small caliber vessel) DIAGONAL 2: Proximal - 25 % Stenosis (small caliber vessel) DIAGONAL 3: Proximal - 25 % Stenosis (small caliber vessel) CIRCUMFLEX ARTERY: OSTIAL CIRC: 85 % Stenosis PROX CIRC: Mild calcification OM 1: Proximal - Mild luminal irregularities (small caliber vessel) OM 2: Mid - diffuse: 25 % Stenosis RIGHT CORONARY ARTERY: PROX RCA: 75 % Stenosis MID RCA: 50 % Stenosis AORTIC ROOT: Angiographically normal PCI: 08/20/2019 CONCLUSIONS Successful PTCA/LIZBETH to oLCx CXR: Preliminary evaluation: No acute cardiopulmonary disease process appreciated: Please see official report Assessment/Plan 1. Atrial fibrillation with rapid ventricular response At present time the etiology of her atrial fibrillation may be multifactorial. It may be related to her age, her history of paroxysmal atrial fibrillation, her history of cardiovascular disease, her history of ALVERTO, etc. At the moment she is being monitored. She is being treated with rate control therapy, antiarrhythmic therapy in attempt to assist with rate control and hopefully regain sinus rhythm, and anticoagulant therapy. She is being evaluated with cardiac enzymes. They have been indeterminant. They may reflect her atrial fibrillation with RVR superimposed upon her known underlying cardiovascular disease. Her ECG is as noted. She has been asked to have an echocardiogram to reassess her atrial size as well as her ventricular wall motion and systolic function. Depending upon her clinical course she may or may not need further cardiac diagnostic studies/intervention. If over time she does not regain sinus rhythm then she may need to be considered for an attempt at synchronized biphasic DC cardioversion. 2. Hypotension She was reported as being hypotensive. This may have been related to her rapid ventricular response. Her blood pressure does appear to have improved as her heart rate has slowed and as she has received volume support. She will continue her cardiac evaluation as noted. 3. Abnormal cardiac enzymes Her troponin I levels are indeterminant. Again this may be represent her rapid ventricular response superimposed upon her underlying CAD process as noted by her most recent cardiac catheterization. At the present time her cardiac enzymes will be followed as well as her ECG. Depending upon her overall status consideration will be given as to whether or not she needs reassessment of her coronary status either noninvasively or invasively. 4. CAD status post PCI Her most recent cardiac catheterization and PCI are as noted. Again depending upon her clinical course she may need further noninvasive or repeat invasive evaluation of her CAD status. In the interim she will continue medical therapy. 5. Hyperlipidemia She will continue medical management. 6. Hypertension She will continue to have her blood pressure monitored and her medic occasions adjusted. 7. Obstructive sleep apnea She will need continued supportive care as deemed appropriate. 8. Renal insufficiency Her creatinine level somewhat elevated. This may represent an element of diminished intravascular volume/dehydration and/or effects of rapid ventricular response and hypotension. At the present time she will continue medical therapy and her renal function will need to be followed. Her renal function may play a role if she requires invasive evaluation with IV contrast related nephropathy. Comment: The patient's case was discussed and viewed with the patient, her granddaughter-the [facility] RN, Dr. Jarrett of the [facility] emergency department staff, and Dr. Aguiar of the [facility] hospital staff. This note was generated using a voice recognition system and there may be incorrect words, spelling or punctuation that were not noted when reviewing the office note prior to saving.
--- NOTE | 2020-05-05 16:21 | EKG12_ITS ---
Test Reason : CONVERTED TO NSR Blood Pressure : / mmHG Vent. Rate : 065 BPM Atrial Rate : 065 BPM P-R Int : 180 ms QRS Dur : 088 ms QT Int : 350 ms P-R-T Axes : 053 027 -37 degrees QTc Int : 364 ms Normal sinus rhythm Nonspecific T wave abnormality Abnormal ECG Confirmed by CRISTOFER SOTO, JUSTINA ([id number]), news copy editor ADEOLA AVALOS ([id number]) on 05/07/2020 10:44:50 AM Referred By: LUIS ENRIQUE Confirmed By:JUSTINA CLEVELAND MD
[2020-05-05] MEDS: Enoxaparin 80 MG/0.8 ML Syringe 70 MG SC (16:38)
[2020-05-05 16:59] LABS: Bacteria 0 SEEN /hpf (None Seen); Mucous, Urine 0 SEEN /hpf (<or=2+); Red Blood Cells-Urine 0 SEEN /hpf (0-5); White Blood Cells 0 SEEN /hpf (0-5)
[2020-05-05 17:09] LABS: Color, Urine Yellow (Yellow); Glucose, Dipstick Normal (Normal); Ketone-Dipstick Negative (Negative); Leukocyte Esterase-Dipstick Negative /ul (Negative); Nitrite-Dipstick Negative (Negative); Occult Blood-Urine Negative /ul (Negative); Protein-Dipstick Negative (Negative); Urine Bilirubin Dipstick Negative (Negative); Urine Clarity Sl. Cloudy (Clear); Urine Urobilinogen Normal (Normal); Urine pH 6.5 (5.0 - 8.0)
[2020-05-05 17:25] LABS: Calcium Oxalate Crystals Ur RARE /hpf (<or=2+); Squamous Epithelial Cells - UA 0-5 SEEN /hpf (5-10)
[2020-05-05 17:34] LABS: Magnesium 1.9 mg/dL (1.6-2.6); Thyroid Stim Hormone (TSH) 3.46 uIU/mL (0.358-3.74)
[2020-05-05] MEDS: Acetaminophen 325 MG Tablet 650 MG PO (20:06)
--- NOTE | 2020-05-05 20:08 | PCS.PANDOC ---
PANDEMIC DOCUMENTATION INITIATED: Date: 05/05/2020 Time: 5143
[2020-05-05] MEDS: Amiodarone 360 MG in Dextrose 5% Viaflo Bag 192.8 ML 16.7 MG CONT INF (21:02)
[2020-05-05] MEDS: 0.9% Normal Saline 1,000 ML 75 ML IV (21:03)
[2020-05-05] MEDS: Atorvastatin Calcium 40 MG Tablet PO (21:08)
[2020-05-05] MEDS: Metoprolol Tartrate 50 MG Tablet PO (21:08)
[2020-05-05] MEDS: Gabapentin 300 MG Capsule 600 MG PO (21:09)
[2020-05-05] MEDS: traZODone 50 MG Tablet PO (21:09)
[2020-05-05] MEDS: Losartan Potassium 50 MG Tablet PO (21:09)
[2020-05-06] VITALS (27 sets, daily range): BP systolic 103–170; BP diastolic 47–112; PULSE 61–88; RESP 11–23; TEMP 36.6–36.9; O2SAT 86–99
[2020-05-06] MEDS: Aspirin E.C. 81 MG Tablet PO (08:12)
[2020-05-06] MEDS: Gabapentin 300 MG Capsule PO ×2 (08:12→12:43)
[2020-05-06] MEDS: Sertraline 50 MG Tablet PO (08:13)
[2020-05-06] MEDS: Clopidogrel Bisulfate 75 MG Tablet PO (08:13)
[2020-05-06] MEDS: Losartan Potassium 50 MG Tablet PO ×2 (08:13→17:33)
[2020-05-06] MEDS: Metoprolol Tartrate 50 MG Tablet PO ×2 (08:14→20:56)
[2020-05-06] MEDS: Tolterodine Tartrate 2 MG CAP.SA PO (08:14)
[2020-05-06] MEDS: Isosorbide Mononitrate 60 MG Tablet PO (08:14)
--- NOTE | 2020-05-06 09:11 | PN.CARD_ITS ---
Subjectve: The patient is awake and alert. She denies any ongoing chest discomfort or worsening shortness of breath/dyspnea or ongoing palpitations. He states she would like to go home. Objective: Vital Signs Temp Pulse Resp BP Pulse Ox 98 F 67 15 170/71 H 94 05/06/20 06:00 05/06/20 08:14 05/06/20 07:00 05/06/20 08:14 05/06/20 07:00 Oxygen Flow Rate (L/min) 2 Oxygen Delivery Method Nasal Cannula Weight: 145 lb 5 oz Body Mass Index (BMI) 25.7 Intake and Output for Last 24 Hours 05/04/20 05/05/20 05/06/20 23:59 23:59 23:59 Intake Total 2451.51 / 2468.21 133.6 / 133.6 Balance 2451.51 / 2468.21 133.6 / 133.6 General: Awake, Alert, Oriented x 3, Cooperative, No Acute Distress HEENT: Atraumatic, Normocephalic, PERRL, EOMI, Sclera Non Icteric Neck: Supple, Good ROM, No JVD Lungs: Clear to auscultation Cardiovascular: Regular Rhythm, Normal S1, Normal S2 Abdomen: Bowel Sounds Present, Soft Extremities: No edema Neurological: No Focal Motor or Sensory Deficit Psych/Mental Status: Appropriate 05/05/20 09:35: WBC 9.0, RBC 4.48, Hgb 13.2, Hct 41.7, MCV 93.1, MCH 29.5, MCHC 31.7 L, Plt Count 298, MPV 9.6, Immature Gran % (Auto) 0.400, Neut % (Auto) 49.6, Lymph % (Auto) 39.5, [place] % (Auto) 7.5, Eos % (Auto) 2.7, Baso % (Auto) 0.3, Absolute Neuts (auto) 4.5, Nucleated RBC % 0 05/05/20 09:35: Sodium 137, Potassium 4.0, Chloride 100, Carbon Dioxide 29.0, Anion Gap 8, BUN 29 H, Creatinine 1.61 H, Est GFR (MDRD) Af Amer 39 L, Est GFR (MDRD) Non-Af 32 L, BUN/Creatinine Ratio 18.0, Glucose 121 H, Calcium 9.4, Troponin I 0.068 H 05/05/20 09:35: Lactic Acid 1.8 05/05/20 09:35: APTT 25.3 05/05/20 13:42: Troponin I 0.170 H 05/05/20 16:00: Troponin I 0.196 H 05/05/20 16:00: Magnesium 1.9 05/05/20 16:50: Urine Color Yellow, Urine Clarity Sl. Cloudy, Urine pH 6.5, Ur Specific [place] 1.010, Urine Protein Negative, Urine Glucose (UA) Normal, Urine Ketones Negative, Urine Occult Blood Negative, Urine Nitrite Negative, Urine Bilirubin Negative, Urine Urobilinogen Normal, Ur Leukocyte Esterase Negative, Urine RBC 0 SEEN, Urine WBC 0 SEEN Rhythm: Sinus rhythm EKG: Sinus rhythm; subtle nonspecific ST/T wave abnormality ECHO: Interpretation Summary The study was technically difficult. Contrast injection was performed. Left ventricular systolic function is normal. The estimated ejection fraction is 65 %. The left atrium is mildly enlarged. There is mild mitral annular calcification. Extension of the mitral annular calcification onto the base of the posterior mitral valve leaflet. Mild (1+) mitral valve insufficiency. Mild to moderate (1-2+) tricuspid valve insufficiency. Right ventricular systolic pressure estimated to be 35 mmHg. Unable to assess diastolic dysfunction. Medical Necessity - Tobacco Use Smoking Status: Never smoker Assessment/Plan 1. Atrial fibrillation with rapid ventricular response At present time the etiology of her atrial fibrillation may be multifactorial. It may be related to her age, her history of paroxysmal atrial fibrillation, her history of cardiovascular disease, her history of ALVERTO, etc. At the moment she is being monitored. She is being treated with rate control therapy, antiarrhythmic therapy in attempt to assist with rate control and regaining/maintaining sinus rhythm, and anticoagulant therapy. She is being evaluated with cardiac enzymes. They have been indeterminant. They may reflect her atrial fibrillation with RVR superimposed upon her known underlying cardiovascular disease. Her ECG is as noted. Her echocardiogram has been reviewed. At the present time it appears reasonable to continue medical management. 2. Hypotension She was reported as being hypotensive. This may have been related to her rapid ventricular response. Her blood pressure does appear to have improved as her heart rate has slowed and as she has received volume support. She will continue her cardiac evaluation as noted. 3. Abnormal cardiac enzymes Her troponin I levels are indeterminant. Again this may be represent her rapid ventricular response superimposed upon her underlying CAD process as noted by her most recent cardiac catheterization if in which was reviewed. Her ECG is demonstrated sinus rhythm with continued subtle nonspecific ST/T wave abnormality with no new acute changes. At the present time as her findings may be compatible with her atrial fibrillation with RVR superimposed upon her underlying known CAD process it wou ld be reasonable to continue medical therapy barring unforeseen change versus returning to the cardiac catheterization laboratory. This was discussed with the patient and at the present time she prefers to continue medical management. 4. CAD status post PCI Her most recent cardiac catheterization and PCI are as noted. We will continue medical therapy at this time. 5. Hyperlipidemia She will continue medical management. 6. Hypertension She will continue to have her blood pressure monitored and her medic occasions adjusted. 7. Obstructive sleep apnea She will need continued supportive care as deemed appropriate. 8. Renal insufficiency Her creatinine level somewhat elevated. This may represent an element of diminished intravascular volume/dehydration and/or effects of rapid ventricular response and hypotension. At the present time she will continue medical therapy and her renal function will need to be followed. Her renal function may play a role if she requires invasive evaluation with IV contrast related nephropathy. Comment: The patient's case was discussed and viewed with the patient and Dr. Aguiar of the [facility] staff. This note was generated using a voice recognition system and there may be incorrect words, spelling or punctuation that were not noted when reviewing the office note prior to saving.
[2020-05-06 09:53] LABS: AST(SGOT) 54 U/L (15-37); Alanine Aminotransfer ALT/SGPT 59 U/L (13-56); Albumin, Serum 3.4 g/dL (3.2-5.0); Alkaline Phosphatase 76 U/L (45-117); Bilirubin, Direct 0.09 mg/dL (0.00-0.30); Globulin 3.5 g/dL (2.2-4.2); Protein, Total 6.9 g/dL (6.4-8.2)
[2020-05-06] MEDS: Amiodarone 360 MG in Dextrose 5% Viaflo Bag 192.8 ML 16.7 MG CONT INF (10:02)
[2020-05-06] MEDS: Enoxaparin 80 MG/0.8 ML Syringe 70 MG SC (10:59)
--- NOTE | 2020-05-06 11:15 | CASEMGMT ---
NICOLE RODRIGUEZ assessment: Face to Face with patient for initial transition planning/care coordination assessment. NICOLE RODRIGUEZ introduced self and role at [facility], pt voices understanding and consents to assessment at this time. Pt is A/Ox4 at this time and answers all questions appropriately at this time. Pt is sitting up in bed on 2L in no distress at this time. Care providers, pharmacy, and demographics verified at this time. Presentation: Pt to ED from PM, was to have injection today for back pain but was noted to be hypotensive, weak, and forgetful. Pt c/o weakness that started this am Admitting dx: Afib RVR, hypotension PCP: Piyush Specialists: Mireya, cardio Preferred [facility]acy: [facility] Insurance: [facility] Prescription Benefit: [facility] Living Will/HPOA: Pt states has LW/HPOA and is aware that they are on file at [facility] at this time. Pt's daughter, Ciera Vora, is HPOA. LNOK: Ciera Vora, daughter/HPOA Living Arrangements: Pt states lives alone in 1 story home with 1 step from garage and states no concerns at home at this time. Pt states is independent with ADL's. Transportation: Pt states drives self and states no transportation concerns at this time. DME/HHC: Pt states has the following DME: rollator, grab bars, and shower chair. Pt states no need for any further DME at this time. Pt states no hx of HHC or SNF in the past. Pt states no concerns with going home at time of discharge. Pt states is retired. Pt states does not smoke cigarettes or drink ETOH. Pt states no further concerns/needs at this time. CM to follow for home oxygen need, PT/OT notes, and any further discharge planning/needs. Advised pt to ask for CM if any further questions/concerns/needs arise, voices understanding. Pt Goal: Home Plan[place] NICOLE RODRIGUEZ
--- NOTE | 2020-05-06 12:20 | RAD_ITS ---
STUDY: X-RAY CHEST REASON FOR EXAM: Female, 84 years old. HYPOXIA TECHNIQUE: PA and lateral views of the chest. COMPARISON: 05/05/2020 FINDINGS: Poor inspiration with some bibasilar atelectasis. There is no demonstrated pleural abnormality. Normal size heart. Normal mediastinum and yolanda. Normal visualized pulmonary arteries. Normal visualized aortic arch and descending thoracic aorta. Normal visualized thoracic spine. Normal visualized ribs, clavicles, and shoulders. There is no demonstrated abnormality of the visualized soft tissue structures of the upper abdomen. RAD/Chest PA and Lateral IMPRESSION: Poor inspiration with some bibasilar atelectasis. Electronically Signed: Luiz Tanner MD at 12:32 EST Tel , Service support ,
--- NOTE | 2020-05-06 14:47 | NURSING ---
removed off of o2 for home qualification
--- NOTE | 2020-05-06 15:21 | CHAPLAIN ---
Type of Pastoral Visit _x__ Initial Visit ___ Follow-up Visit ___ On-call Visit ___ General Patient Visit ___ Spiritual Assessment ___ Family Conference ___ Bereavement ___ Rapid Response ___ Code Blue ___ Other (describe below) Pastoral Care Referral From _x__ Patient ___ Family ___ Nurse ___ Physician ___ Emissions Testing Technician ___ Armed Security Professional ___ Other (describe below) Sacrament/Intervention _x__ Active listening ___ Anointing ___ Oriental Orthodox ___ Bereavement ___ Communion ___ Lola exploration ___ ___ Life review _x__ Prayer ___ Reconciliation ___ Sacrament of Sick _x__ Supportive presence ___ Wedding ___ Other (describe below) Pastoral Comments
--- NOTE | 2020-05-06 15:50 | PN_ITS ---
Subjective: Patient seen and examined. Reports shortness of breath and chest soreness. Denies palpitations. Denies other associated symptoms or complaints. Patient reports she has had shortness of breath off and on over the past few months. - Physical Exam Vitals/I&O's: Vital Signs Temp Pulse Resp BP Pulse Ox 97.8 F 69 17 140/70 H 97 05/06/20 10:02 05/06/20 11:55 05/06/20 10:02 05/06/20 10:02 05/06/20 10:02 Oxygen Flow Rate (L/min) 2 Oxygen Delivery Method Nasal Cannula Weight: 145 lb 5 oz Body Mass Index (BMI) 25.7 Intake and Output for Last 24 Hours 05/04/20 05/05/20 05/06/20 23:59 23:59 23:59 Intake Total 2451.51 / 2468.21 1727.16 / 1727.16 Balance 2451.51 / 2468.21 1727.16 / 1727.16 General: Alert, Oriented x3, Cooperative HEENT: Atraumatic, PERRLA, EOMI, Normocephalic Neck: Supple, No JVD, Negative Carotid Bruits Lungs: Clear to auscultation, Diminished Cardiovascular: Regular rate, No murmurs Abdomen: Bowel Sounds Present, Soft, Non Tender, Non-Distended, No Hepato- splenomegaly Extremities: No clubbing, No cyanosis, No edema, Capillary Refill Less than 3 Seconds Skin: No rashes, No breakdown Musculoskeletal: No Tenderness to Palpation of Joints or Extremities Neurological: Cranial nerves II-XII grossly intact, Neuro grossly intact Psych/Mental Status: Normal Affect, Appropriate Laboratory Results 05/05/20 16:00: Troponin I 0.196 H 05/05/20 16:00: Magnesium 1.9, TSH 3.46 05/05/20 16:50: Urine Color Yellow, Urine Clarity Sl. Cloudy, Urine pH 6.5, Ur Specific [place] 1.010, Urine Protein Negative, Urine Glucose (UA) Normal, Urine Ketones Negative, Urine Occult Blood Negative, Urine Nitrite Negative, Urine Bilirubin Negative, Urine Urobilinogen Normal, Ur Leukocyte Esterase Negative, Urine RBC 0 SEEN, Urine WBC 0 SEEN, Ur Squamous Epith Cells 0-5 SEEN, Calcium Oxalate Crystal RARE, Urine Bacteria 0 SEEN, Urine Mucus 0 SEEN 05/06/20 08:23: Troponin I 0.218 H 05/06/20 08:23: Total Bilirubin 0.50, Direct Bilirubin 0.09, AST 54 H, ALT 59 H, Alkaline Phosphatase 76, Total Protein 6.9, Albumin 3.4, Globulin 3.5 Current Medications Acetaminophen (Acetaminophen 325 Mg Tablet) 650 mg PO Q6H PRN PRN PRN Reason: Pain Score 1-10/Temp > 100.7 F Last Admin: 05/05/20 20:06 Dose: 650 mg Documented by: Amiodarone HCl (Amiodarone 200 Mg Tablet) 200 mg PO TID [facility] Stop: 05/10/20 22:01 Amiodarone HCl (Amiodarone 200 Mg Tablet) 200 mg PO BID [facility] Stop: 05/17/20 22:01 Amiodarone HCl (Amiodarone 200 Mg Tablet) 200 mg PO DAILY [facility] Aspirin (Aspirin E.C. 81 Mg Tablet) 81 mg PO DAILY@0800 [facility] Last Admin: 05/06/20 08:12 Dose: 81 mg Documented by: Atorvastatin Calcium (Atorvastatin Calcium 40 Mg Tablet) 40 mg PO [facility] Last Admin: 05/05/20 21:08 Dose: 40 mg Documented by: Clopidogrel Bisulfate (Clopidogrel Bisulfate 75 Mg Tablet) 75 mg PO DAILY [facility] Last Admin: 05/06/20 08:13 Dose: 75 mg Documented by: Enoxaparin Sodium (Enoxaparin 80 Mg/0.8 Ml Syringe) 70 mg SC DAILY [facility] Last Admin: 05/06/20 10:59 Dose: 70 mg Documented by: Gabapentin (Gabapentin 300 Mg Capsule) 300 mg PO BID@0800,1200 [facility] Last Admin: 05/06/20 12:43 Dose: 300 mg Documented by: Gabapentin (Gabapentin 300 Mg Capsule) 600 mg PO QHS [facility] Last Admin: 05/05/20 21:09 Dose: 600 mg Documented by: Isosorbide Mononitrate (Isosorbide Mononitrate 60 Mg Tablet) 60 mg PO DAILY [facility] Last Admin: 05/06/20 08:14 Dose: 60 mg Documented by: Losartan Potassium (Losartan Potassium 50 Mg Tablet) 50 mg PO BID [facility] Last Admin: 05/06/20 08:13 Dose: 50 mg Documented by: Metoprolol Tartrate (Metoprolol Tartrate 50 Mg Tablet) 50 mg PO BID [facility] Last Admin: 05/06/20 08:14 Dose: 50 mg Documented by: Ondansetron HCl (Ondansetron 4 Mg/2 Ml Vial) 4 mg IV Q8H PRN PRN PRN Reason: NAUSEA/VOMITING Pramipexole Dihydrochloride (Pramipexole Di-Hcl 0.25 Mg Tablet) 0.25 mg PO BID PRN PRN PRN Reason: SCIATICA Sertraline HCl (Sertraline 50 Mg Tablet) 50 mg PO DAILY [facility] Last Admin: 05/06/20 08:13 Dose: 50 mg Documented by: Tolterodine Tartrate (Tolterodine Tartrate 2 Mg Cap.Sa) 2 mg PO DAILY [facility] Last Admin: 05/06/20 08:14 Dose: 2 mg Documented by: Trazodone HCl (Trazodone 50 Mg Tablet) 50 mg PO QHS PRN PRN Reason: SLEEP Last Admin: 05/05/20 21:09 Dose: 50 mg Documented by: Medical Necessity - Tobacco Use Smoking Status: Never smoker Assessment/Plan All Active Problems (Last Reviewed 12/30/19 @ 11:16 by Fabi Lemons) NSTEMI (non-ST elevated myocardial infarction) (Resolved) 1. Atrial fibrillation with RVR, history of paroxysmal atrial fibrillation- cardiology consulted. Initiated on amiodarone drip. Converted to sinus rhythm. Transition to oral amiodarone with taper. Continue home metoprolol regimen. Echocardiogram demonstrates an EF of 65%, mild mitral valve insufficiency, mild to moderate tricuspid valve insufficiency. Begin Eliquis at discharge 2.5 mg twice daily. 2. Abnormal troponin-cardiology following. Suspect demand ischemia as a result of #1. 3. Acute kidney injury-IV fluids, trend BMP. 4. CAD with history of PTCA/PCI to LAD-continue aspirin, statin, Plavix, isosorbide, metoprolol, losartan. 5. Hypertension-stable, continue losartan, metoprolol. 6. Hyperlipidemia-continue statin. 7. ALVERTO on CPAP-continue home CPAP regimen. DVT prophylaxis-Lovenox subcu This patient was seen by BLANCO Duckworth under the supervision of Dr. Brian hicks.
--- NOTE | 2020-05-06 16:03 | PCM.DC ---
- Discharge Diagnoses Current Active Problems: Current Active and Chronic Problems (Last Reviewed 12/30/19 @ 11:16 by Fabi Lemons) Pure hypercholesterolemia (Chronic) ALVERTO on CPAP (Chronic) Essential hypertension (Chronic) Atherosclerotic heart disease of [place] coronary artery without angina pectoris (Chronic) Presence of stent in coronary artery (Chronic ~08/20/19) Successful PTCA/LIZBETH to LCX per cath 08/20/19; PCI/LIZBETH to mid LAD 01/15/09; PCI/BMS to prox LAD 08/20/07 Atrial fibrillation status post cardioversion (Chronic) You will use the following diet at home:: Cardiac Discharge Activity: Return to Normal Activity Call your doctor if you observe: Shortness of breath, Dizziness, Fainting spells, Chest pain Allergies/Adverse Reactions: Allergies meperidine [From Demerol] Adverse Reaction (Verified 05/05/20 09:20) Nausea Medications to take at Discharge Atorvastatin Calcium 40 mg PO DAILY 08/19/19 Clopidogrel Bisulfate [Clopidogrel] 75 mg PO DAILY 08/19/19 Gabapentin [Neurontin] 600 mg PO LUNCH 08/19/19 Gabapentin [Neurontin] 600 mg PO QHS 08/19/19 Losartan Potassium 50 mg PO BID 08/19/19 Metoprolol Tartrate 50 mg PO BID 08/19/19 Pramipexole Di-HCl [Mirapex] 0.25 mg PO BID PRN PRN 08/19/19 Sertraline HCl [Zoloft] 50 mg PO DAILY 08/19/19 Sucralfate [Carafate] 1 tab PO BIDCM 08/19/19 Aspirin E.C. [Ecotrin] 81 mg PO DAILY@0800 tab 08/21/19 oxybutynin chloride 10 mg tablet,extended release 24 hr 10 mg PO DAILY 12/30/19 trazodone 50 mg tablet 25 mg PO QHS PRN 12/30/19 Acetaminophen [Tylenol] 650 mg PO Q6H PRN PRN 05/05/20 Amlodipine Besylate [Norvasc] 2.5 mg PO DAILY 05/05/20 Ascorbic Acid [Vitamin C] 250 mg PO DAILY 05/05/20 Calcium Carbonate/Vitamin D3 [Calcium 600-Vit D3 200 Tablet] 1 tab PO DAILY 05/05/20 Dextran 70/He-Cell [Tears Naturale, Artificial Tears] 1 drp 4X/DAY PRN PRN 05/05/20 Dicyclomine HCl [Bentyl] 10 mg PO ACHS 05/05/20 Docusate Sodium [Dulcolax Stool Softener] 100 mg PO BID 05/05/20 Fexofenadine HCl [Ratna Allergy] 60 mg PO DAILY 05/05/20 Flaxseed Oil 1,000 mg PO DAILY 05/05/20 Multivit-Min/FA/Lycopen/Lutein [Centrum Silver Tablet] 1 tab PO DAILY 05/05/20 Naproxen Sodium [Aleve] 220 mg PO Q6H PRN PRN 05/05/20 Nitroglycerin SL (ED ONLY) [Nitrostat] 0.4 mg SUBLINGUAL X1 05/05/20 [place]-3 Fatty Acids/Fish Oil [[place] 3 1,000 mg Softgel] 1 ea PO BID 05/05/20 Pantoprazole Sodium [Protonix] 40 mg PO DAILY 05/05/20 Sertraline HCl [Zoloft] 25 mg PO DAILY 05/05/20 Vitamin B Complex [B Complex] 1 tab PO DAILY 05/05/20 traMADol 50 mg PO Q6H PRN PRN 05/05/20 Amiodarone HCl [Cordarone] 200 mg PO TID #120 tab 05/06/20 Apixaban [Eliquis] 2.5 mg PO BID #60 tab 05/06/20 Isosorbide Mononitrate [Imdur] 60 mg PO DAILY #30 tab 05/06/20 The following prescriptions were given: Amiodarone HCl [Cordarone] 200 mg PO TID #120 tab [facility]: [facility] Apixaban [Eliquis] 2.5 mg PO BID #60 tab Transmission Status: Pending to [facility] Isosorbide Mononitrate [Imdur] 60 mg PO DAILY #30 tab Transmission Status: [facility] Primary Care Physician: Gladys Pickett MD [Primary Care Provider] - Please follow up with your Primary Care Physician in: 1 Week Test Results: Test results from this visit will be discussed in further detail at your follow-up appointment, if applicable. Please Follow Up With: Kirk Gomes MD When: 2 Weeks Proposed Discharge Date: 05/06/20
--- NOTE | 2020-05-06 16:04 | DS.PCM_ITS ---
Discharge Date and Diagnosis Date of Admission: 05/05/20 Date of Discharge: 05/06/20 - Primary Discharge Diagnosis Acute Problems: 1. Atrial fibrillation with RVR, history of paroxysmal atrial fibrillation 2. Abnormal troponin 3. Acute kidney injury 4. CAD with history of PTCA/PCI to LAD 5. Hypertension 6. Hyperlipidemia 7. 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 Electronically Signed: Luiz Tanner MD at 12:32 EST Tel , Service support , Dr. Gomes- Cardiology Operations: None Procedures: 2-D Echocardiogram Summary of Care Provided: The patient is a 84 year old F admitted 05/05/2020 due to low blood pressure and elevated heart rate. 1. Atrial fibrillation with RVR, history of paroxysmal atrial fibrillation- cardiology consulted. Initiated on amiodarone drip. Converted to sinus rhythm. Transition to oral amiodarone with taper. Continue home metoprolol regimen. Echocardiogram demonstrates an EF of 65%, mild mitral valve insufficiency, mild to moderate tricuspid valve insufficiency. Begin Eliquis at discharge 2.5 mg twice daily. Follow-up with cardiology in 2 weeks. 2. Abnormal troponin-cardiology following. Suspect demand ischemia as a result of #1. 3. Acute kidney injury-IV fluids during admission. 4. CAD with history of PTCA/PCI to LAD-continue aspirin, statin, Plavix, isosorbide, metoprolol, losartan. 5. Hypertension-stable, continue losartan, metoprolol. 6. Hyperlipidemia-continue statin. 7. ALVERTO on CPAP-continue home CPAP regimen. General: Alert, Oriented x3, Cooperative HEENT: Atraumatic, PERRLA, EOMI, Normocephalic Neck: Supple, No JVD, Negative Carotid Bruits Lungs: Clear to auscultation, Diminished Cardiovascular: Regular rate, No murmurs Abdomen: Bowel Sounds Present, Soft, Non Tender, Non-Distended, No Hepato- splenomegaly Extremities: No clubbing, No cyanosis, No edema, Capillary Refill Less than 3 Seconds Skin: No rashes, No breakdown Musculoskeletal: No Tenderness to Palpation of Joints or Extremities Neurological: Cranial nerves II-XII grossly intact, Neuro grossly intact Psych/Mental Status: Normal Affect, Appropriate Patient seen and examined prior to discharge. Physical assessment as noted above. Patient is stable for discharge with follow up recommendations as noted above. This patient was seen by BLANCO Duckworth under the supervision of Dr. Aguiar. - Physical Exam Vitals/I&O's: Vital Signs Temp Pulse Resp BP Pulse Ox 98.1 F 69 17 162/80 H 92 05/06/20 12:00 05/06/20 15:00 05/06/20 15:00 05/06/20 15:00 05/06/20 15:00 Oxygen Flow Rate (L/min) 2 Oxygen Delivery Method Room Air Weight: 145 lb 5 oz Body Mass Index (BMI) 25.7 Intake and Output for Last 24 Hours 05/04/20 05/05/20 05/06/20 23:59 23:59 23:59 Intake Total 2451.51 / 2468.21 1810.10 / 1810.10 Balance 2451.51 / 2468.21 1810.10 / 1810.10 Laboratory Results 05/05/20 16:00: Troponin I 0.196 H 05/05/20 16:00: Magnesium 1.9, TSH 3.46 05/05/20 16:50: Urine Color Yellow, Urine Clarity Sl. Cloudy, Urine pH 6.5, Ur Specific [place] 1.010, Urine Protein Negative, Urine Glucose (UA) Normal, Urine Ketones Negative, Urine Occult Blood Negative, Urine Nitrite Negative, Urine Bilirubin Negative, Urine Urobilinogen Normal, Ur Leukocyte Esterase Negative, Urine RBC 0 SEEN, Urine WBC 0 SEEN, Ur Squamous Epith Cells 0-5 SEEN, Calcium Oxalate Crystal RARE, Urine Bacteria 0 SEEN, Urine Mucus 0 SEEN 05/06/20 08:23: Troponin I 0.218 H 05/06/20 08:23: Total Bilirubin 0.50, Direct Bilirubin 0.09, AST 54 H, ALT 59 H, Alkaline Phosphatase 76, Total Protein 6.9, Albumin 3.4, Globulin 3.5 Current Medications Acetaminophen (Acetaminophen 325 Mg Tablet) 650 mg PO Q6H PRN PRN PRN Reason: Pain Score 1-10/Temp > 100.7 F Last Admin: 05/05/20 20:06 Dose: 650 mg Documented by: Amiodarone HCl (Amiodarone 200 Mg Tablet) 200 mg PO TID [facility] Stop: 05/10/20 22:01 Amiodarone HCl (Amiodarone 200 Mg Tablet) 200 mg PO BID [facility] Stop: 05/17/20 22:01 Amiodarone HCl (Amiodarone 200 Mg Tablet) 200 mg PO DAILY [facility] Aspirin (Aspirin E.C. 81 Mg Tablet) 81 mg PO DAILY@0800 [facility] Last Admin: 05/06/20 08:12 Dose: 81 mg Documented by: Atorvastatin Calcium (Atorvastatin Calcium 40 Mg Tablet) 40 mg PO HS [facility] Last Admin: 05/05/20 21:08 Dose: 40 mg Documented by: Clopidogrel Bisulfate (Clopidogrel Bisulfate 75 Mg Tablet) 75 mg PO DAILY [facility] Last Admin: 05/06/20 08:13 Dose: 75 mg Documented by: Enoxaparin Sodium (Enoxaparin 80 Mg/0.8 Ml Syringe) 70 mg SC DAILY [facility] Last Admin: 05/06/20 10:59 Dose: 70 mg Documented by: Gabapentin (Gabapentin 300 Mg Capsule) 300 mg PO BID@0800,1200 [facility] Last Admin: 05/06/20 12:43 Dose: 300 mg Documented by: Gabapentin (Gabapentin 300 Mg Capsule) 600 mg PO QHS [facility] Last Admin: 05/05/20 21:09 Dose: 600 mg Documented by: Isosorbide Mononitrate (Isosorbide Mononitrate 60 Mg Tablet) 60 mg PO DAILY [facility] Last Admin: 05/06/20 08:14 Dose: 60 mg Documented by: Losartan Potassium (Losartan Potassium 50 Mg Tablet) 50 mg PO BID [facility] Last Admin: 05/06/20 08:13 Dose: 50 mg Documented by: Metoprolol Tartrate (Metoprolol Tartrate 50 Mg Tablet) 50 mg PO BID [facility] Last Admin: 05/06/20 08:14 Dose: 50 mg Documented by: Ondansetron HCl (Ondansetron 4 Mg/2 Ml Vial) 4 mg IV Q8H PRN PRN PRN Reason: NAUSEA/VOMITING Pramipexole Dihydrochloride (Pramipexole Di-Hcl 0.25 Mg Tablet) 0.25 mg PO BID PRN PRN PRN Reason: SCIATICA Sertraline HCl (Sertraline 50 Mg Tablet) 50 mg PO DAILY [facility] Last Admin: 05/06/20 08:13 Dose: 50 mg Documented by: Tolterodine Tartrate (Tolterodine Tartrate 2 Mg Cap.Sa) 2 mg PO DAILY [facility] Last Admin: 05/06/20 08:14 Dose: 2 mg Documented by: Trazodone HCl (Trazodone 50 Mg Tablet) 50 mg PO QHS PRN PRN Reason: SLEEP Last Admin: 05/05/20 21:09 Dose: 50 mg Documented by: Discharge Diet: Low fat/ Low Cholesterol Discharge Activity: Return to Normal Activity Call your doctor if you observe: Shortness of breath, Dizziness, Fainting spells, Chest pain Home Medications: Medications to take at Discharge Atorvastatin Calcium 40 mg PO DAILY 08/19/19 Clopidogrel Bisulfate [Clopidogrel] 75 mg PO DAILY 08/19/19 Gabapentin [Neurontin] 600 mg PO LUNCH 08/19/19 Gabapentin [Neurontin] 600 mg PO QHS 08/19/19 Losartan Potassium 50 mg PO BID 08/19/19 Metoprolol Tartrate 50 mg PO BID 08/19/19 Pramipexole Di-HCl [Mirapex] 0.25 mg PO BID PRN PRN 08/19/19 Sertraline HCl [Zoloft] 50 mg PO DAILY 08/19/19 Sucralfate [Carafate] 1 tab PO BIDCM 08/19/19 Aspirin E.C. [Ecotrin] 81 mg PO DAILY@0800 tab 08/21/19 oxybutynin chloride 10 mg tablet,extended release 24 hr 10 mg PO DAILY 12/30/19 trazodone 50 mg tablet 25 mg PO QHS PRN 12/30/19 Acetaminophen [Tylenol] 650 mg PO Q6H PRN PRN 05/05/20 Amlodipine Besylate [Norvasc] 2.5 mg PO DAILY 05/05/20 Ascorbic Acid [Vitamin C] 250 mg PO DAILY 05/05/20 Calcium Carbonate/Vitamin D3 [Calcium 600-Vit D3 200 Tablet] 1 tab PO DAILY 05/05/20 Dextran 70/He-Cell [Tears Naturale, Artificial Tears] 1 drp 4X/DAY PRN PRN 05/05/20 Dicyclomine HCl [Bentyl] 10 mg PO ACHS 05/05/20 Docusate Sodium [Dulcolax Stool Softener] 100 mg PO BID 05/05/20 Fexofenadine HCl [Ratna Allergy] 60 mg PO DAILY 05/05/20 Flaxseed Oil 1,000 mg PO DAILY 05/05/20 Multivit-Min/FA/Lycopen/Lutein [Centrum Silver Tablet] 1 tab PO DAILY 05/05/20 Naproxen Sodium [Aleve] 220 mg PO Q6H PRN PRN 05/05/20 Nitroglycerin SL (ED ONLY) [Nitrostat] 0.4 mg SUBLINGUAL X1 05/05/20 [place]-3 Fatty Acids/Fish Oil [[place] 3 1,000 mg Softgel] 1 ea PO BID 05/05/20 Pantoprazole Sodium [Protonix] 40 mg PO DAILY 05/05/20 Sertraline HCl [Zoloft] 25 mg PO DAILY 05/05/20 Vitamin B Complex [B Complex] 1 tab PO DAILY 05/05/20 traMADol 50 mg PO Q6H PRN PRN 05/05/20 Amiodarone HCl [Cordarone] 200 mg PO TID #120 tab 05/06/20 Apixaban [Eliquis] 2.5 mg PO BID #60 tab 05/06/20 Following Prescriptions Were Given to Patient: Amiodarone HCl [Cordarone] 200 mg PO TID #120 tab Transmission Status: Pending to [id number] Apixaban [Eliquis] 2.5 mg PO BID #60 tab [facility]: [id number] Primary Care Physician: Gladys Pickett MD [Primary Care Provider] - Please follow up with your Primary Care Physician in: 1 Week Please Follow Up With: Kirk Gomes MD When: 2 Weeks Disposition: Home Minutes spent on discharge:: 35 Patient Condition:: Stable Medical Necessity - Tobacco Use Smoking Status: Never smoker Meaningful Use Info Meaningful Use Diagnoses (Choose all that apply): None applicable
[2020-05-06] MEDS: Amiodarone 200 MG Tablet PO ×2 (16:10→20:56)
[2020-05-06] MEDS: Gabapentin 300 MG Capsule 600 MG PO (20:57)
[2020-05-06] MEDS: Atorvastatin Calcium 40 MG Tablet PO (20:57)
[2020-05-06] MEDS: Pramipexole Di-HCl 0.25 MG Tablet PO (20:59)
[2020-05-06] MEDS: traZODone 50 MG Tablet PO (22:17)
[2020-05-06] MEDS: MELATONIN 10 MG TABLET PO (22:17)
[2020-05-07] VITALS (14 sets, daily range): BP systolic 133–168; BP diastolic 74–89; PULSE 63–129; RESP 16–19; TEMP 36.3–36.7; O2SAT 93–98
[2020-05-07] MEDS: Acetaminophen 325 MG Tablet 650 MG PO (00:26)
[2020-05-07] MEDS: Amiodarone 200 MG Tablet PO ×3 (05:09→21:58)
[2020-05-07 05:46] LABS: Hematocrit 34.5 % (37-47); Hemoglobin 11.4 g/dL (12.0-15.0); Mean Corpuscular Hgb 30.6 pg (27.0-32.0); Mean Corpuscular Volume 92.7 fL (81-99); Mean Platelet Vol. 9.4 fl (6.2-12.0); Platelet Count 193 K/mm3 (150-450); RBC Distribution Width CV 14.4 % (11.6-14.6); RBC Distribution Width SD 48.1 fl (35.1-43.9); Red Blood Count 3.72 M/mm3 (4.2-5.4); White Blood Count 7.1 K/mm3 (4.4-11.0)
[2020-05-07 06:12] LABS: Anion Gap 6 (5-15); BUN 24 mg/dL (7-18); BUN/Creat Ratio 23.5 RATIO (10-20); Calcium,Total 8.6 mg/dL (8.5-10.1); Chloride 108 mmol/L (98-107); Creatinine, Serum 1.02 mg/dL (0.55-1.02); EST Glomerular Filtration Rate 55 mL/min (>60); Est Glom Filt Rate - Afr Amer 67 mL/min (>60); Estimated Creatinine Clearance 34.57 ml/min; Glucose 107 mg/dL (74-106); Potassium 3.7 mmol/L (3.5-5.1); Sodium Level 139 mmol/L (136-145)
[2020-05-07] MEDS: Losartan Potassium 50 MG Tablet PO ×2 (10:02→21:58)
[2020-05-07] MEDS: Aspirin E.C. 81 MG Tablet PO (10:02)
[2020-05-07] MEDS: Metoprolol Tartrate 50 MG Tablet PO ×2 (10:02→14:57)
[2020-05-07] MEDS: Isosorbide Mononitrate 60 MG Tablet PO (10:02)
[2020-05-07] MEDS: Clopidogrel Bisulfate 75 MG Tablet PO (10:02)
[2020-05-07] MEDS: Gabapentin 300 MG Capsule PO ×2 (10:03→13:59)
[2020-05-07] MEDS: Enoxaparin 80 MG/0.8 ML Syringe 70 MG SC (10:03)
[2020-05-07] MEDS: Tolterodine Tartrate 2 MG CAP.SA PO (10:03)
[2020-05-07] MEDS: Sertraline 50 MG Tablet PO (10:03)
--- NOTE | 2020-05-07 10:21 | CASEMGMT ---
Pt states she would like [facility] PT/OT at discharge and declines need for SN at this time. Call to Magaly at [facility] with referral at this time, voices understanding and states that start of care would probably be monday/monday and pt is aware at this time. Therapy just worked with pt and states amb pulse ox was 93% on room air at this time. Order placed for PT/OT. Pt voices no further questions/concerns/needs at this time. SStfransisca RIVERA CM
[2020-05-07] MEDS: Furosemide 40 MG/4 ML Vial IV (10:38)
--- NOTE | 2020-05-07 11:19 | CASEMGMT ---
Pt to be sent home on Eliquis and med e-scribed to [facility] pharmacy previously. Call to [facility] [place] pharmacy and per pharmacist, pt's co-pay is $137 at this time. Pt provided with Eliquis free 30 day trial card at this time and updated on cost. Per pharmacy, this is most likely deductible for pt at this time and pt aware, voices understanding. Roscoe RIVERA CM
[2020-05-07] MEDS: Digoxin 250 MCG/ML Ampul 500 MCG IV (17:48)
--- NOTE | 2020-05-07 17:52 | PN.CARD_ITS ---
Subjectve: The patient was evaluated earlier this day. At that time she was not complaining of any chest discomfort. She was still on O2 nasal cannula. She carolina d not noted any palpitations. Objective: Vital Signs Temp Pulse Resp BP Pulse Ox 98.1 F 129 H 19 H 134/77 H 98 05/07/20 11:05 05/07/20 17:48 05/07/20 11:05 05/07/20 11:05 05/07/20 11:05 Oxygen Flow Rate (L/min) [ 2 AMBULATION with Oxygen] Oxygen Flow Rate (L/min) [ 0 AMBULATING on Room Air] Oxygen Flow Rate (L/min) [At 0 REST on Room Air] Oxygen Flow Rate (L/min) 2 Oxygen Delivery Method Room Air Weight: 145 lb 5 oz Body Mass Index (BMI) 25.7 Intake and Output for Last 24 Hours 05/05/20 05/06/20 05/07/20 23:59 23:59 23:59 Intake Total 2451.51 / 2468.21 1829.58 / 1949.58 620 / 620 Balance 2451.51 / 2468.21 1829.58 / 1949.58 620 / 620 General: Awake, Alert, Oriented x 3, Cooperative, No Acute Distress HEENT: Atraumatic, Normocephalic, PERRL, EOMI, Sclera Non Icteric Neck: Supple, Good ROM, No JVD Lungs: Diminished Beto Bases Cardiovascular: Irregular Rhythm, Normal S1, Normal S2 Abdomen: Bowel Sounds Present, Soft Extremities: No edema Psych/Mental Status: Appropriate 05/07/20 05:40: WBC 7.1, RBC 3.72 L, Hgb 11.4 L, Hct 34.5 L, MCV 92.7, MCH 30.6, MCHC 33.0, Plt Count 193, MPV 9.4 05/07/20 05:40: Sodium 139, Potassium 3.7, Chloride 108 H, Carbon Dioxide 25.0, Anion Gap 6, BUN 24 H, Creatinine 1.02, Est GFR (MDRD) Af Amer 67, Est GFR (MDRD) Non-Af 55 L, BUN/Creatinine Ratio 23.5 H, Glucose 107 H, Calcium 8.6 05/07/20 05:40: Troponin I 0.114 H Rhythm: Atrial fibrillation Medical Necessity - Tobacco Use Smoking Status: Never smoker Assessment/Plan 1. Atrial fibrillation with rapid ventricular response At present time the etiology of her atrial fibrillation may be multifactorial. It may be related to her age, her history of paroxysmal atrial fibrillation, her history of cardiovascular disease, her history of ALVERTO, etc. At the moment she is being monitored. She is being treated with rate control therapy, antiarrhythmic therapy in attempt to assist with rate control and regaining/maintaining sinus rhythm, and anticoagulant therapy. Her cardiac enzymes have decreased. They may reflect her atrial fibrillation with RVR superimposed upon her known underlying cardiovascular disease. Her ECG is as noted. Her echocardiogram has been reviewed. At the present time it appears reasonable to continue medical management with adjustment as needed. 2. Hypotension She was reported as being hypotensive. This may have been related to her rapid ventricular response. Her blood pressure does appear to have improved as her heart rate has slowed and as she has received volume support. She will continue her cardiac evaluation as noted. 3. Abnormal cardiac enzymes Her troponin I levels are indeterminant. Again this may be represent her rapid ventricular response superimposed upon her underlying CAD process as noted by her most recent cardiac catheterization if in which was reviewed. Her ECG is demonstrated sinus rhythm with continued subtle nonspecific ST/T wave abnormality with no new acute changes. At the present time as her findings may be compatible with her atrial fibrillation with RVR superimposed upon her underlying known CAD process it would be reasonable to continue medical therapy barring unforeseen change versus returning to the cardiac catheterization laboratory. This was discussed with the patient and at the present time she prefers to continue medical management. 4. CAD status post PCI Her most recent cardiac catheterization and PCI are as noted. We will continue medical therapy at this time. 5. Hyperlipidemia She will continue medical management. 6. Hypertension She will continue to have her blood pressure monitored and her medic occasions adjusted. 7. Obstructive sleep apnea She will need continued supportive care as deemed appropriate. 8. Renal insufficiency Her creatinine level somewhat elevated. This may represent an element of diminished intravascular volume/dehydration and/or effects of rapid ventricular response and hypotension. At the present time she will continue medical therapy and her renal function will need to be followed. Her renal function may play a role if she requires invasive evaluation with IV contrast related nephropathy. For all there is some concern that the patient may have accumulated some extra volume that may be contributing to her physical examination findings and her shortness of breath. Thus she will receive a dose of IV diuretics and her physical exam and O2 status can be followed. Comment: The patient's case was discussed and viewed with the patient and Dr. Aguiar of the [facility] staff. This note was generated using a voice recognition system and there may be incorrect words, spelling or punctuation that were not noted when reviewing the office note prior to saving.
--- NOTE | 2020-05-07 19:25 | PN_ITS ---
Subjective: Patient was seen and examined today, initially today we thought it was possible for the patient to be discharged home, she did not require oxygen late this morning either on ambulation or at rest, however, the patient did go back into atrial fibrillation and her rate today continue to accelerate into the 120s and 130s. I talked to cardiology multiple times today about her care and we have adjusted her medications, at the time of this dictation, patient does appear to have reverted to sinus rhythm. After discussing with Dr. Gomes this miguelangel harmeet, we feel is best for the patient to remain here tonight and observed until tomorrow morning for possible discharge tomorrow. I will add oral digoxin to her regimen. Objective: On examination she appeared in good health and spirits, she does not appear to be in any distress. Vital signs as documented. Skin warm and dry and without overt rashes. Neck without JVD, thyroid appears normal, trachea is midline, neck is supple. Lungs clear, normal air movement was noted. Heart exam notable for regular rhythm, normal sounds and absence of murmurs, rubs or gallops. Abdomen unremarkable and without evidence of organomegaly, masses, or abdominal aortic enlargement, bowel sounds are present in all 4 quadrants, no abdominal tenderness was noted. Extremities nonedematous, no cyanosis was noted, no clubbing was noted. Neuro: Cranial nerves II through XII are grossly intact, no focal motor deficits were noted, sensation to light touch and pinprick is intact, motor exam 5/5 throughout. Psych: Patient is alert and oriented x3, she does not appear anxious or depressed, she does not appear agitated. - Physical Exam Vitals/I&O's: Vital Signs Temp Pulse Resp BP Pulse Ox 98.1 F 129 H 19 H 134/77 H 98 05/07/20 11:05 05/07/20 17:48 05/07/20 11:05 05/07/20 11:05 05/07/20 11:05 Oxygen Flow Rate (L/min) [ 2 AMBULATION with Oxygen] Oxygen Flow Rate (L/min) [ 0 AMBULATING on Room Air] Oxygen Flow Rate (L/min) [At 0 REST on Room Air] Oxygen Flow Rate (L/min) 2 Oxygen Delivery Method Room Air Weight: 65.913 kg Body Mass Index (BMI) 25.7 Intake and Output for Last 24 Hours 05/05/20 05/06/20 05/07/20 23:59 23:59 23:59 Intake Total 2451.51 / 2468.21 1829.58 / 1949.58 620 / 620 Balance 2451.51 / 2468.21 1829.58 / 1949.58 620 / 620 Laboratory Results 05/07/20 05:40: WBC 7.1, RBC 3.72 L, Hgb 11.4 L, Hct 34.5 L, MCV 92.7, MCH 30.6, MCHC 33.0, RDW Std Deviation 48.1 H, RDW Coeff of Brian 14.4, Plt Count 193, MPV 9.4 05/07/20 05:40: Sodium 139, Potassium 3.7, Chloride 108 H, Carbon Dioxide 25.0, Anion Gap 6, BUN 24 H, Creatinine 1.02, Estim Creat Clear Calc 34.57, Est GFR (MDRD) Af Amer 67, Est GFR (MDRD) Non-Af 55 L, BUN/Creatinine Ratio 23.5 H, Glucose 107 H, Calcium 8.6 05/07/20 05:40: Troponin I 0.114 H Current Medications Acetaminophen (Acetaminophen 325 Mg Tablet) 650 mg PO Q6H PRN PRN PRN Reason: Pain Score 1-10/Temp > 100.7 F Last Admin: 05/07/20 00:26 Dose: 650 mg Documented by: Amiodarone HCl (Amiodarone 200 Mg Tablet) 200 mg PO TID [facility] Stop: 05/10/20 22:01 Last Admin: 05/07/20 14:00 Dose: 200 mg Documented by: Amiodarone HCl (Amiodarone 200 Mg Tablet) 200 mg PO BID [facility] Stop: 05/17/20 22:01 Amiodarone HCl (Amiodarone 200 Mg Tablet) 200 mg PO DAILY [facility] Apixaban (Apixaban 2.5 Mg Tablet) 2.5 mg PO BID [facility] Aspirin (Aspirin E.C. 81 Mg Tablet) 81 mg PO DAILY@0800 [facility] Last Admin: 05/07/20 10:02 Dose: 81 mg Documented by: Atorvastatin Calcium (Atorvastatin Calcium 40 Mg Tablet) 40 mg PO HS [facility] Last Admin: 05/06/20 20:57 Dose: 40 mg Documented by: Clopidogrel Bisulfate (Clopidogrel Bisulfate 75 Mg Tablet) 75 mg PO DAILY [facility] Last Admin: 05/07/20 10:02 Dose: 75 mg Documented by: Gabapentin (Gabapentin 300 Mg Capsule) 300 mg PO BID@0800,1200 [facility] Last Admin: 05/07/20 13:59 Dose: 300 mg Documented by: Gabapentin (Gabapentin 300 Mg Capsule) 600 mg PO QHS [facility] Last Admin: 05/06/20 20:57 Dose: 600 mg Documented by: Isosorbide Mononitrate (Isosorbide Mononitrate 60 Mg Tablet) 60 mg PO DAILY [facility] Last Admin: 05/07/20 10:02 Dose: 60 mg Documented by: Losartan Potassium (Losartan Potassium 50 Mg Tablet) 50 mg PO BID [facility] Last Admin: 05/07/20 10:02 Dose: 50 mg Documented by: Melatonin (Melatonin 10 Mg Tablet) 10 mg PO QHS [facility] Last Admin: 05/06/20 22:17 Dose: 10 mg Documented by: Metoprolol Tartrate (Metoprolol Tartrate 100 Mg Tablet) 100 mg PO BID [facility] Ondansetron HCl (Ondansetron 4 Mg/2 Ml Vial) 4 mg IV Q8H PRN PRN PRN Reason: NAUSEA/VOMITING Pramipexole Dihydrochloride (Pramipexole Di-Hcl 0.25 Mg Tablet) 0.25 mg PO BID PRN PRN PRN Reason: SCIATICA Last Admin: 05/06/20 20:59 Dose: 0.25 mg Documented by: Sertraline HCl (Sertraline 50 Mg Tablet) 50 mg PO DAILY [facility] Last Admin: 05/07/20 10:03 Dose: 50 mg Documented by: Sodium Chloride (0.9% Saline Lock 10 Ml Syringe) 10 - 40 ml IV UD PRN PRN Reason: SALINE FLUSH Tolterodine Tartrate (Tolterodine Tartrate 2 Mg Cap.Sa) 2 mg PO DAILY [facility] Last Admin: 05/07/20 10:03 Dose: 2 mg Documented by: Trazodone HCl (Trazodone 50 Mg Tablet) 50 mg PO QHS PRN PRN Reason: SLEEP Last Admin: 05/06/20 22:17 Dose: 50 mg Documented by: Medical Necessity - Tobacco Use Smoking Status: Never smoker Assessment/Plan All Active Problems (Last Reviewed 12/30/19 @ 11:16 by Fabi Lemons) NSTEMI (non-ST elevated myocardial infarction) (Resolved) #1 new onset atrial fibrillation with RVR-now converted to normal sinus rhythm, patient will remain on her current medications with the addition of digoxin today. #2 coronary artery disease #3 abnormal cardiac enzymes-probably secondary to atrial fibrillation, I do not believe the patient has had a non-STEMI #4 hyperlipidemia #5 essential hypertension #6 hypotension-resolved at this time #7 stage III chronic kidney disease #8 obstructive sleep apnea #9 mild pulmonary hypertension Inpatient E&M: 37953 Subs Hosp L2
[2020-05-07] MEDS: Pramipexole Di-HCl 0.25 MG Tablet PO (21:57)
[2020-05-07] MEDS: APIXABAN 2.5 MG TABLET PO (21:57)
[2020-05-07] MEDS: Atorvastatin Calcium 40 MG Tablet PO (21:57)
[2020-05-07] MEDS: Gabapentin 300 MG Capsule 600 MG PO (21:57)
[2020-05-07] MEDS: MELATONIN 10 MG TABLET PO (21:58)
[2020-05-07] MEDS: Zolpidem Tartrate 5 MG Tablet PO (21:58)
[2020-05-07] MEDS: Metoprolol Tartrate 100 MG Tablet PO (21:59)
[2020-05-08] VITALS (8 sets, daily range): BP systolic 109–156; BP diastolic 69–90; PULSE 56–130; RESP 12–16; TEMP 36.6–36.9; O2SAT 93–95
[2020-05-08] MEDS: Amiodarone 200 MG Tablet PO (06:23)
--- NOTE | 2020-05-08 06:25 | EKG12_ITS ---
Test Reason : EKG CHANGES Blood Pressure : / mmHG Vent. Rate : 101 BPM Atrial Rate : 250 BPM P-R Int : 000 ms QRS Dur : 090 ms QT Int : 340 ms P-R-T Axes : 000 035 -82 degrees QTc Int : 440 ms Atrial fibrillation Nonspecific ST and T wave abnormality Abnormal ECG Confirmed by CRISTOFER SOTO, JUSTINA ([id number]), production machine tender NEPTALI ORTIZ ([id number]) on 05/11/2020 10:02:19 AM Referred By: JAIDA Confirmed By:JUSTINA CLEVELAND MD
--- NOTE | 2020-05-08 08:25 | PCM.PN.CARD ---
Subjectve: The patient is awake and alert this morning. She states she is breathing more comfortably. She is not wearing O2 nasal cannula at this time. Objective: Vital Signs Temp Pulse Resp BP Pulse Ox 98.5 F 110 H 15 141/90 H 95 05/08/20 08:09 05/08/20 08:09 05/08/20 08:09 05/08/20 08:09 05/08/20 08:09 Oxygen Flow Rate (L/min) [ 2 AMBULATION with Oxygen] Oxygen Flow Rate (L/min) [ 0 AMBULATING on Room Air] Oxygen Flow Rate (L/min) [At 0 REST on Room Air] Oxygen Flow Rate (L/min) 2 Oxygen Delivery Method Room Air Weight: 145 lb 5 oz Body Mass Index (BMI) 25.7 Intake and Output for Last 24 Hours 05/06/20 05/07/20 05/08/20 23:59 23:59 23:59 Intake Total 1829.58 / 1949.58 620 / 620 120 / 120 Balance 1829.58 / 1949.58 620 / 620 120 / 120 General: Awake, Alert, Oriented x 3, Cooperative, No Acute Distress HEENT: Atraumatic, Normocephalic, PERRL, EOMI, Sclera Non Icteric Neck: Supple, Good ROM, No JVD Lungs: Clear to auscultation Cardiovascular: Irregular Rhythm, Normal S1, Normal S2 Abdomen: Bowel Sounds Present, Soft Extremities: No edema Neurological: No Focal Motor or Sensory Deficit Psych/Mental Status: Appropriate Rhythm: Sinus rhythm with episodes of paroxysmal atrial fibrillation with a brief episode of an irregular wide-complex rhythm concerning for aberrancy/a combination of ventricular ectopy-no associated symptoms or hemodynamic compromise Medical Necessity - Tobacco Use Smoking Status: Never smoker Assessment/Plan 1. Atrial fibrillation with rapid ventricular response At present time the etiology of her atrial fibrillation may be multifactorial. It may be related to her age, her history of paroxysmal atrial fibrillation, her history of cardiovascular disease, her history of ALVERTO, etc. At the moment she is being monitored. She is being treated with rate control therapy, antiarrhythmic therapy in attempt to assist with rate control and regaining/maintaining sinus rhythm, and anticoagulant therapy. Her cardiac enzymes have decreased. They may reflect her atrial fibrillation with RVR superimposed upon her known underlying cardiovascular disease. Her ECG is as noted. Her echocardiogram has been reviewed. At the present time it appears reasonable to continue medical management with adjustment as needed. 2. Hypotension She was reported as being hypotensive. This may have been related to her rapid ventricular response. Her blood pressure does appear to have improved as her heart rate has slowed and as she has received volume support. She will continue her cardiac evaluation as noted. 3. Abnormal cardiac enzymes Her troponin I levels are indeterminant. Again this may be represent her rapid ventricular response superimposed upon her underlying CAD process as noted by her most recent cardiac catheterization if in which was reviewed. Her ECG is demonstrated sinus rhythm with continued subtle nonspecific ST/T wave abnormality with no new acute changes. At the present time as her findings may be compatible with her atrial fibrillation with RVR superimposed upon her underlying known CAD process it would be reasonable to continue medical therapy barring unforeseen change versus returning to the cardiac catheterization laboratory. This was discussed with the patient and at the present time she prefers to continue medical management. 4. CAD status post PCI Her most recent cardiac catheterization and PCI are as noted. We will continue medical therapy at this time. 5. Hyperlipidemia She will continue medical management. 6. Hypertension She will continue to have her blood pressure monitored and her medic occasions adjusted. 7. Obstructive sleep apnea She will need continued supportive care as deemed appropriate. 8. Renal insufficiency Her creatinine level somewhat elevated. This may represent an element of diminished intravascular volume/dehydration and/or effects of rapid ventricular response and hypotension. At the present time she will continue medical therapy and her renal function will need to be followed. Her renal function may play a role if she requires invasive evaluation with IV contrast related nephropathy. Overall she does appear to be improved status post her additional dose of IV diuretics yesterday with respect to her pulmonary/respiratory status. She appears more awake and alert today and breathing much more comfortably on room air. She will continue medical therapy with adjustment as deemed appropriate. Comment: The patient's case was discussed and viewed with the patient and Dr. Aguiar of the [facility] staff. This note was generated using a voice recognition system and there may be incorrect words, spelling or punctuation that were not noted when reviewing the office note prior to saving.
[2020-05-08] MEDS: Aspirin E.C. 81 MG Tablet PO (08:29)
[2020-05-08] MEDS: Losartan Potassium 50 MG Tablet PO (08:30)
[2020-05-08] MEDS: Gabapentin 300 MG Capsule PO ×2 (08:30→13:16)
[2020-05-08] MEDS: Tolterodine Tartrate 2 MG CAP.SA PO (08:31)
[2020-05-08] MEDS: Digoxin 250 MCG Tablet PO (08:31)
[2020-05-08] MEDS: Sertraline 50 MG Tablet PO (08:31)
[2020-05-08] MEDS: APIXABAN 2.5 MG TABLET PO (08:31)
[2020-05-08] MEDS: Clopidogrel Bisulfate 75 MG Tablet PO (08:31)
[2020-05-08] MEDS: Metoprolol Tartrate 100 MG Tablet PO (10:01)
[2020-05-08] MEDS: Isosorbide Mononitrate 60 MG Tablet PO (10:01)
--- NOTE | 2020-05-08 11:46 | CASEMGMT ---
Magaly at [facility] aware that pt to discharge today and she states they will do SOC on 05/10/20. Roscoe RIVERA CM
--- NOTE | 2020-05-10 10:51 | DS.PCM_ITS ---
Discharge Date and Diagnosis Date of Admission: 05/05/20 Date of Discharge: 05/08/20 - Primary Discharge Diagnosis Acute Problems: #1 new onset atrial fibrillation with RVR #2 coronary artery disease #3 abnormal cardiac enzymes-probably secondary to atrial fibrillation #4 hyperlipidemia #5 essential hypertension #6 hypotension #7 stage III chronic kidney disease #8 obstructive sleep apnea #9 mild pulmonary hypertension - Secondary Discharge Diagnosis Chronic Problems: Chronic Problems (Last Reviewed 12/30/19 @ 11:16 by Fabi Lemons) Pure hypercholesterolemia (Chronic) ALVERTO on CPAP (Chronic) Essential hypertension (Chronic) Atherosclerotic heart disease of [place] coronary artery without angina pectoris (Chronic) Presence of stent in coronary artery (Chronic ~08/20/19) Successful PTCA/LIZBETH to LCX per cath 08/20/19; PCI/LIZBETH to mid LAD 01/15/09; PCI/BMS to prox LAD 08/20/07 Atrial fibrillation status post cardioversion (Chronic) Hospital Course and Treatment Operations: None Procedures: 2-D Echocardiogram Summary of Care Provided: The patient is a 84 year old F seen in the emergency room at [facility] with a chief complaint of low blood pressure which was noted to be present 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 Patient states that she had overall weakness, she denied any chest pain or shortness of breath. Work-up in the emergency room included an EKG which showed atrial fibrillation with a rapid ventricular response. This appeared to be a new rhythm for the patient. Chemistries are unremarkable except for a BUN of 29 and a creatinine of 1.61. Troponin was 0.068, chest x-ray showed no acute changes and no CHF. Patient was given an IV fluid bolus due to hypotension in the emergency room, this improved her blood pressure, but eventually her blood pressure dropped again into the 80s systolic. Cardiology was contacted and recommended administration of digoxin 0.5 and she was placed on a heparin drip. Patient was admitted to PCU, her blood pressure improved while on PCU she was taken off the heparin drip and transition to Lovenox. She was seen in consultation by cardiology recommended placing the patient on IV amiodarone. Patient's cardiac enzymes were repeated and they remained in the intermediate range and were not felt to indicate a non-STEMI. Patient initially converted to normal sinus rhythm, there was some concerns that she was mildly hypoxic on ambulation and she had to be kept an additional day, in the meantime, she went back into atrial fibrillation with a rapid ventricular response and additional digoxin was administered and her beta-dominic dosage was increased. Patient was given 1 dose of Lasix and repeat pulse ox readings did not indicate the patient required further oxygen administration. On 05/08/2019, patient was seen and examined: On examination she appeared in good health and spirits, she does not appear to be in any distress. Vital signs as documented. Skin warm and dry and without overt rashes. Neck without JVD, thyroid appears normal, trachea is midline, neck is supple. Lungs clear, normal air movement was noted. Heart exam notable for irregular rhythm, normal sounds and absence of murmurs, rubs or gallops. Abdomen unremarkable and without evidence of organomegaly, masses, or abdominal aortic enlargement, bowel sounds are present in all 4 quadrants, no abdominal tenderness was noted. Extremities nonedematous, no cyanosis was noted, no clubbing was noted. Neuro: Cranial nerves II through XII are grossly intact, no focal motor deficits were noted, sensation to light touch and pinprick is intact, motor exam 5/5 throughout. Psych: Patient is alert and oriented x3, she does not appear anxious or depressed, she does not appear agitated. On 05/08/2020, patient was seen and examined and felt in stable condition for discharge home - Physical Exam Vitals/I&O's: Vital Signs Temp Pulse Resp BP Pulse Ox 97.8 F 109 H 16 109/69 93 05/08/20 12:45 05/08/20 12:45 05/08/20 12:45 05/08/20 12:45 05/08/20 12:45 Oxygen Flow Rate (L/min) [ 2 AMBULATION with Oxygen] Oxygen Flow Rate (L/min) [ 0 AMBULATING on Room Air] Oxygen Flow Rate (L/min) [At 0 REST on Room Air] Oxygen Flow Rate (L/min) 95 Oxygen Delivery Method Room Air Weight: 65.913 kg Body Mass Index (BMI) 25.7 Intake and Output for Last 24 Hours 05/08/20 05/09/20 05/10/20 23:59 23:59 23:59 Intake Total 480 / 480 Balance 480 / 480 Discharge Diet: Low fat/ Low Cholesterol Discharge Activity: Return to Normal Activity Call your doctor if you observe: Shortness of breath, Dizziness, Fainting spells, Chest pain Home Medications: Medications to take at Discharge Atorvastatin Calcium 40 mg PO DAILY 08/19/19 Clopidogrel Bisulfate [Clopidogrel] 75 mg PO DAILY 08/19/19 Gabapentin [Neurontin] 600 mg PO LUNCH 08/19/19 Gabapentin [Neurontin] 600 mg PO QHS 08/19/19 Losartan Potassium 50 mg PO BID 08/19/19 Pramipexole Di-HCl [Mirapex] 0.25 mg PO BID PRN PRN 08/19/19 Sertraline HCl [Zoloft] 50 mg PO DAILY 08/19/19 Sucralfate [Carafate] 1 tab PO BIDCM 08/19/19 Aspirin E.C. [Ecotrin] 81 mg PO DAILY@0800 tab 08/21/19 oxybutynin chloride 10 mg tablet,extended release 24 hr 10 mg PO DAILY 12/30/19 trazodone 50 mg tablet 25 mg PO QHS PRN 12/30/19 Acetaminophen [Tylenol] 650 mg PO Q6H PRN PRN 05/05/20 Amlodipine Besylate [Norvasc] 2.5 mg PO DAILY 05/05/20 Ascorbic Acid [Vitamin C] 250 mg PO DAILY 05/05/20 Calcium Carbonate/Vitamin D3 [Calcium 600-Vit D3 200 Tablet] 1 tab PO DAILY 05/05/20 Dextran 70/He-Cell [Tears Naturale, Artificial Tears] 1 drp 4X/DAY PRN PRN 05/05/20 Dicyclomine HCl [Bentyl] 10 mg PO ACHS 05/05/20 Docusate Sodium [Dulcolax Stool Softener] 100 mg PO BID 05/05/20 Fexofenadine HCl [Ratna Allergy] 60 mg PO DAILY 05/05/20 Flaxseed Oil 1,000 mg PO DAILY 05/05/20 Multivit-Min/FA/Lycopen/Lutein [Centrum Silver Tablet] 1 tab PO DAILY 05/05/20 Nitroglycerin SL (ED ONLY) [Nitrostat] 0.4 mg SUBLINGUAL X1 05/05/20 [place]-3 Fatty Acids/Fish Oil [[place] 3 1,000 mg Softgel] 1 ea PO BID 05/05/20 Pantoprazole Sodium [Protonix] 40 mg PO DAILY 05/05/20 Sertraline HCl [Zoloft] 25 mg PO DAILY 05/05/20 Vitamin B Complex [B Complex] 1 tab PO DAILY 05/05/20 traMADol 50 mg PO Q6H PRN PRN 05/05/20 Amiodarone HCl [Cordarone] 200 mg PO TID #120 tab 05/06/20 Apixaban [Eliquis] 2.5 mg PO BID #60 tab 05/06/20 Melatonin 10 mg PO PRN PRN 05/06/20 Metoprolol Tartrate [Lopressor (beta dominic)] 100 mg PO BID #60 tab 05/07/20 Digoxin 250 mcg PO DAILY #30 tab 05/08/20 Following Prescriptions Were Given to Patient: Amiodarone HCl [Cordarone] 200 mg PO TID #120 tab Transmission Status: Received by [id number] Digoxin 250 mcg PO DAILY #30 tab Transmission Status: Received by [id number] Apixaban [Eliquis] 2.5 mg PO BID #60 tab Transmission Status: Received by [id number] Metoprolol Tartrate [Lopressor (beta dominic)] 100 mg PO BID #60 tab Transmission Status: Received by [id number] Primary Care Physician: Gladys Pickett MD [Primary Care Provider] - Please follow up with your Primary Care Physician in: 1 Week Please Follow Up With: Kirk Gomes MD When: 2 Weeks Please Follow Up With: Gladys Pickett MD Disposition: Home Minutes spent on discharge:: 32 Patient Condition:: Stable Medical Necessity - Tobacco Use Smoking Status: Never smoker Meaningful Use Info Meaningful Use Diagnoses (Choose all that apply): None applicable Inpatient E&M: 38971 Disch Hosp
== END 2020-05-08 13:23 | disposition home health service (06) | DRG 309 ==
LOC: ED 11:24 → PCU 12:55
PROVIDERS: Internal Medicine Cardiovascular Disease; Nurse Practitioner Family; Admitting Provider Internal Medicine; Emergency Provider Emergency Medicine; PCP Internal Medicine; Visit Provider Internal Medicine
DX: I48.0 Paroxysmal atrial fibrillation (principal); N17.9 Acute kidney failure, unspecified; I95.9 Hypotension, unspecified; R09.02 Hypoxemia; I12.9 Hypertensive chronic kidney disease with stage 1 through stage 4 chronic kidney disease, or unspecified chronic kidney disease; N18.30 Chronic kidney disease, stage 3 unspecified; E87.6 Hypokalemia; I27.20 Pulmonary hypertension, unspecified; I25.10 Atherosclerotic heart disease of native coronary artery without angina pectoris; E78.5 Hyperlipidemia, unspecified; M54.5 Low back pain; G89.29 Other chronic pain; G47.33 Obstructive sleep apnea (adult) (pediatric); Z79.01 Long term (current) use of anticoagulants; Z79.02 Long term (current) use of antithrombotics/antiplatelets; Z79.82 Long term (current) use of aspirin; Z79.899 Other long term (current) drug therapy; I25.2 Old myocardial infarction; Z95.5 Presence of coronary angioplasty implant and graft
CPT/HCPCS: 36415; 71045; 71046; 80048; 80076; 81001; 83605; 83735; 84443; 84484; 85025; 85027; 85730; 93005; 93306; 97162; 97166; 97530; 97535; 99284; J7030; Q9957; A4216; C8929; J1940

== ENCOUNTER → 2020-05-21 16:32 | Outpatient (CLI) | payer MEDICARE, SELFPAY ==
[2019-12-09 08:37] VITALS: BMI 24.3
[2020-05-05 12:29] VITALS: BMI 25.7
[2020-05-21 18:39] LABS: Anion Gap 4 (5-15); BUN 17 mg/dL (7-18); Calcium,Total 9.3 mg/dL (8.5-10.1); Chloride 103 mmol/L (98-107); EST Glomerular Filtration Rate 56 mL/min (>60); Est Glom Filt Rate - Afr Amer 68 mL/min (>60); Glucose 119 mg/dL (74-106); Potassium 3.9 mmol/L (3.5-5.1); Sodium Level 136 mmol/L (136-145)
== END ==
PROVIDERS: Internal Medicine Cardiovascular Disease; PCP Internal Medicine; Referring Provider Internal Medicine; Visit Provider Internal Medicine
DX: I10 Essential (primary) hypertension (principal); I48.0 Paroxysmal atrial fibrillation; M48.062 Spinal stenosis, lumbar region with neurogenic claudication; I25.10 Atherosclerotic heart disease of native coronary artery without angina pectoris; E78.00 Pure hypercholesterolemia, unspecified; I25.2 Old myocardial infarction; Z95.5 Presence of coronary angioplasty implant and graft
CPT/HCPCS: 80048

== ENCOUNTER 2020-06-04 22:40 | Inpatient (IN) | payer MEDICARE, SELFPAY ==
[2019-12-09 08:37] VITALS: BMI 24.3
[2020-05-05 12:29] VITALS: BMI 25.7
[2020-06-04] VITALS (7 sets, daily range): BP systolic 154; BP diastolic 129; PULSE 58–70; RESP 18–23; TEMP 36.6–36.7; O2SAT 91–93; BMI 27.6
--- NOTE | 2020-06-04 22:55 | RAD_ITS ---
HISTORY: increased SOB for a couple of weeks. 89% on RA for EMS up to 94% 2L. received 2nd covid vaccine today EXAM: XR Chest 1 View: COMPARISON: May 06, 2020 FINDINGS: # of images incl. paperwork: 1 Calcific plaque in the aortic arch persists Bilateral perihilar and lower lung airspace disease persists. Heart is not enlarged. No acute osseous pathology perceived. Pulmonary vascularity is indistinct. Increasing but small bilateral pleural effusions. RAD/Chest 1 View (Portable) IMPRESSION: Persistent bilateral perihilar airspace disease with basilar atelectasis and pleural effusions. Overall pulmonary edema is less than the previous studies, however, there is greater consolidation within the left lower lobe with increasing pleural effusions compared to the previous study. This consolidation could just be atelectasis in the left lower lobe, however, pneumonia is within the differential.. at 0000 Reported and signed by: Vernon Miranda MD Electronically Signed: Vernon Miranda MD at 23:59 EST Tel , Service support ,
--- NOTE | 2020-06-04 22:55 | EKG12_ITS ---
Test Reason : SOB Blood Pressure : / mmHG Vent. Rate : 060 BPM Atrial Rate : 060 BPM P-R Int : 162 ms QRS Dur : 090 ms QT Int : 448 ms P-R-T Axes : 034 045 034 degrees QTc Int : 448 ms Normal sinus rhythm Septal [place] , age undettermined, cannot be excluded Confirmed by CRISTOFER SOTO, JUSTINA ([id number]), book or script editor ADEOLA AVALOS ([id number]) on 06/05/2020 11:25:22 AM Referred By: Confirmed By:JUSTINA CLEVELAND MD
--- NOTE | 2020-06-04 22:56 | ED.VIS.GEN ---
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 Patient states that she has been chronically short of breath for months. She is recently admitted to the hospital for new onset A. fib with RVR. She converted back to a normal sinus rhythm while in the hospital. She tells me she has been on Eliquis and has not missed any doses. She states that today she got progressively short of breath to the point that she called the emergency department and asked what she should do because her pulse ox was 83% on room air. EMS placed her on oxygen and gave her a DuoNeb which she states helped. She denies any fever. She denies any cough. She denies any leg swelling. No reported history of CHF. She does take lasix 40 mg/day. The patient denies any orthopnea but is clearly more short of breath when she lays back. It appears that her last heart catheterization was in July 2019 which demonstrated a significant LCx lesion and underwent successful PCI. During the patient's last hospitalization she had had a echocardiogram results are below: Left ventricular systolic function is normal. The estimated ejection fraction is 65 %. The left atrium is mildly enlarged. There is mild mitral annular calcification. Extension of the mitral annular calcification onto the base of the posterior mitral valve leaflet. Mild (1+) mitral valve insufficiency. Mild to moderate (1-2+) tricuspid valve insufficiency. Right ventricular systolic pressure estimated to be 35 mmHg. Unable to assess diastolic dysfunction. 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 (2) Pure hypercholesterolemia Status: Chronic (3) ALVERTO on CPAP Status: Chronic (4) Essential hypertension Status: Chronic (5) Atherosclerotic heart disease of [place] coronary artery without angina pectoris Status: Chronic (6) Presence of stent in coronary artery Status: Chronic Comment: Successful PTCA/LIZBETH to LCX per cath 08/20/19; PCI/LIZBETH to mid LAD 01/15/09; PCI/BMS to prox LAD 08/20/07 (7) Atrial fibrillation status post cardioversion Status: Chronic (8) NSTEMI (non-ST elevated myocardial infarction) Status: Resolved Past Medical History - Allergies and Home Meds Allergies/Adverse Reactions: Allergies meperidine [From Demerol] Adverse Reaction (Verified 06/04/20 22:49) Nausea Primary Care Physician: Gladys Pickett MD [Primary Care Provider] - Surgical History: angioplasty - cardiac stent, last placed circa 2006 Smoking Status: Never smoker Drugs: None - Family History Maternal Family History: Family History (Last Reviewed 05/05/20 @ 15:05 by Tila Aguilera NP, OLIVER FILTER OPERATOR-C) Father Heart disease Brother Diabetes Mother COPD (chronic obstructive pulmonary disease) Grandfather Heart disease Family History: Reports: COPD Paternal Family History: Family History (Last Reviewed 05/05/20 @ 15:05 by Tila Aguilera NP, OLIVER FILTER OPERATOR-C) Father Heart disease Brother Diabetes Mother COPD (chronic obstructive pulmonary disease) Grandfather Heart disease Family History: Reports: Heart Disease Review of Systems General: Denies: Chills, Fever, Sweats Eyes: Denies: Visual changes - bilaterally, Diplopia ENT: Denies: Rhinorrhea, Sore throat Cardiovascular: Denies: Chest pain, Palpitations Respiratory: Reports: Dyspnea, Cough, Dyspnea on exertion. Denies: Sputum, Orthopnea Gastrointestinal: Denies: Abdominal pain, Nausea, Vomiting, Diarrhea, Melena, Hematochezia Genitourinary: Denies: Dysuria, Hematuria, Frequency Musculoskeletal: Denies: Back pain, Extremity Pain Skin: Denies: Rash, Wounds Neurological: Denies: Headache, Weakness, Numbness Physical Exam Vital Signs/Narrative: Vital Signs Temp Pulse Resp BP Pulse Ox 06/04/20 22:46 98.1 F 70 23 H 154/129 H 91 06/04/20 22:41 98.1 F 70 23 H 154/129 H 91 Inital Vital Signs reviewed: Yes General: Well nourished, Well developed, No Acute Distress Head: Normocephalic, Atraumatic Eyes: Perrl, EOMI ENT: Moist mucous membranes, No rhinorrhea Neck: Supple, Nontender Cardiovascular: Regular rate, Regular rhythm, No murmurs Respiratory: Chest nontender, Rales, Diminished - at bases, - - Patient has increased work of breathing but is not in distress. Abdomen: Soft, Nontender, Nondistended, Normal bowel sounds Back: Nontender, Normal Inspection Extremities: Nontender, No edema Skin: Normal color, No rash Neurological: Alert, Oriented x3, Cranial nerves II-XII grossly intact, Normal Strength, Normal Sensation Psychological: Normal affect, Normal Mood Diagnostic/Tx/Re-eval Laboratory Last Values WBC 11.5 K/mm3 (4.4-11.0) H 06/04/20 22:50 RBC 4.42 M/mm3 (4.2-5.4) 06/04/20 22:50 Hgb 13.2 g/dL (12.0-15.0) 06/04/20 22:50 Hct 41.1 % (37-47) 06/04/20 22:50 MCV 93.0 fL (81-99) 06/04/20 22:50 MCH 29.9 pg (27.0-32.0) 06/04/20 22:50 MCHC 32.1 g/dL (32-36) 06/04/20 22:50 RDW Std Deviation 53.5 fl (35.1-43.9) H 06/04/20 22:50 RDW Coeff of Brian 15.7 % (11.6-14.6) H 06/04/20 22:50 Plt Count 273 K/mm3 (150-450) 06/04/20 22:50 MPV 9.4 fl (6.2-12.0) 06/04/20 22:50 Immature Gran % (Auto) 0.400 % (0.0-0.9) 06/04/20 22:50 Neut % (Auto) 74.6 % (47-70) H 06/04/20 22:50 Lymph % (Auto) 19.3 % (19-41) 06/04/20 22:50 [place] % (Auto) 4.0 % (0-10) 06/04/20 22:50 Eos % (Auto) 1.4 % (0-5) 06/04/20 22:50 Baso % (Auto) 0.3 % (0-1) 06/04/20 22:50 Absolute Neuts (auto) 8.6 X10^3/uL (2.0-7.7) H 06/04/20 22:50 Absolute Lymphs (auto) 2.22 X10^3/uL (0.83-4.51) 06/04/20 22:50 Nucleated RBC % 0 % (0-5) 06/04/20 22:50 PT 14.1 SECONDS (11.7-14.9) 06/04/20 22:50 INR 1.1 06/04/20 22:50 APTT 29.5 Seconds (24.1-36.2) 06/04/20 22:50 Sodium 130 mmol/L (136-145) L 06/04/20 22:50 Potassium 4.1 mmol/L (3.5-5.1) 06/04/20 22:50 Chloride 97 mmol/L (98-107) L 06/04/20 22:50 Carbon Dioxide 26.0 mmol/L (21.0-32.0) 06/04/20 22:50 Anion Gap 7 (5-15) 06/04/20 22:50 BUN 24 mg/dL (7-18) H 06/04/20 22:50 Creatinine 1.17 mg/dL (0.55-1.02) H 06/04/20 22:50 Estim Creat Clear Calc 30.14 ml/min 06/04/20 22:50 Est GFR (MDRD) Af Amer 57 mL/min (>60) L 06/04/20 22:50 Est GFR (MDRD) Non-Af 47 mL/min (>60) L 06/04/20 22:50 BUN/Creatinine Ratio 20.5 RATIO (10-20) H 06/04/20 22:50 Glucose 138 mg/dL (74-106) H 06/04/20 22:50 Lactic Acid 1.1 mmol/L (0.4-1.9) 06/04/20 23:05 Calcium 9.5 mg/dL (8.5-10.1) 06/04/20 22:50 Total Bilirubin 0.80 mg/dL (0.20-1.00) 06/04/20 22:50 AST 68 U/L (15-37) H 06/04/20 22:50 ALT 109 U/L (13-56) H 06/04/20 22:50 Alkaline Phosphatase 108 U/L (45-117) 06/04/20 22:50 Troponin I < 0.015 ng/mL (<0.045) 06/04/20 22:50 B-Natriuretic Peptide 561.4 pg/mL (0-100) H 06/04/20 22:50 Total Protein 8.1 g/dL (6.4-8.2) 06/04/20 22:50 Albumin 4.3 g/dL (3.2-5.0) 06/04/20 22:50 Globulin 3.8 g/dL (2.2-4.2) 06/04/20 22:50 Albumin/Globulin Ratio 1.1 RATIO (0.9-2.4) 06/04/20 22:50 Urine Color Yellow (Yellow) 06/04/20 23:20 Urine Clarity Clear (Clear) 06/04/20 23:20 Urine pH 6.5 (5.0 - 8.0) 06/04/20 23:20 Ur Specific [place] 1.010 (1.002-1.030) 06/04/20 23:20 Urine Protein Negative mg/dl (Negative) 06/04/20 23:20 Urine Glucose (UA) Normal mg/dl (Normal) 06/04/20 23:20 Urine Ketones Negative mg/dl (Negative) 06/04/20 23:20 Urine Occult Blood Negative /ul (Negative) 06/04/20 23:20 Urine Nitrite Negative (Negative) 06/04/20 23:20 Urine Bilirubin Negative mg/dL (Negative) 06/04/20 23:20 Urine Urobilinogen Normal mg/dl (Normal) 06/04/20 23:20 Ur Leukocyte Esterase Negative /ul (Negative) 06/04/20 23:20 Urine RBC 0 SEEN /hpf (0-5) 06/04/20 23:20 Urine WBC 0 SEEN /hpf (0-5) 06/04/20 23:20 Ur Squamous Epith Cells 0 SEEN /hpf (5-10) 06/04/20 23:20 Urine Bacteria 0 SEEN /hpf (None Seen) 06/04/20 23:20 Urine Mucus 0 SEEN /hpf (<or=2+) 06/04/20 23:20 Clinical Impression(s) from Imaging Studies Chest X-Ray 06/04/20 22:55 IMPRESSION: Persistent bilateral perihilar airspace disease with basilar atelectasis and pleural effusions. Overall pulmonary edema is less than the previous studies, however, there is greater consolidation within the left lower lobe with increasing pleural effusions compared to the previous study. This consolidation could just be atelectasis in the left lower lobe, however, pneumonia is within the differential.. at 0000 Reported and signed by: Vernon Miranda MD Electronically Signed: Vernon Miranda MD at 23:59 EST Tel , Service support , Chest CTA 06/04/20 23:39 IMPRESSION: No pulmonary embolism, aortic aneurysm, or aortic dissection. CHF. Pulmonary edema, atelectasis, pleural effusion Individualized dose optimization techniques were used for this CT. at 0041 Reported and signed by: Vernon Miranda MD Electronically Signed: Vernon Miranda MD at 0:39 EST Tel , Service support , - EKG Follow-up EKG Interpretation: Sinus Rhythm - EKG demonstrates a normal sinus rhythm at a rate of 60 without concerning features of ACS or ectopy - Medical Decision Making She was placed on the monitor given supplemental oxygen. Blood work shows a mild leukocytosis at 11. BNP over 500. Troponin negative. Creatinine 1.1. Lactic acid normal. My interpretation of the chest x-ray is bibasilar atelectasis, pleural effusion, and pulmonary edema. CT of the chest was obtained which demonstrates right greater than left pleural effusions, pulmonary edema. No obvious infiltrates were seen. This appears to be acute decompensated congestive heart failure. She received 80 of Lasix. She remains hypoxic on room air. Plan is admission. ED Disposition - Plan for ED Patient: Disposition: Acute Care Hospital [facility] Diagnosis: Acute congestive heart failure, Bilateral pleural effusion, Hypoxemia Referrals: Gladys Pickett MD [Primary Care Provider] -
[2020-06-04] MEDS: Ipratropium/Albuterol Sulfate 3 ML AMPUL.NEB INHALATION (23:01)
[2020-06-04 23:05] LABS: Absolute Lymphocyte Count 2.22 X10^3/uL (0.83-4.51); Absolute Neutrophil Count 8.6 X10^3/uL (2.0-7.7); Basophil# 0.03 X10^3/uL; Basophil% 0.3 % (0-1); Eosinophil# 0.16 X10^3/uL; Eosinophils% 1.4 % (0-5); Hematocrit 41.1 % (37-47); Hemoglobin 13.2 g/dL (12.0-15.0); Lymphocyte # 2.22 X10^3/ul (4.0); Lymphocyte % 19.3 % (19-41); Mean Corp Hgb Conc 32.1 g/dL (32-36); Mean Corpuscular Hgb 29.9 pg (27.0-32.0); Mean Platelet Vol. 9.4 fl (6.2-12.0); Monocyte# 0.46 X10^3/uL; NRBC Flagged by Analyzer 0 % (0-5); Neutrophil # 8.58 X10^3/uL (2.7-7.7); Neutrophil % 74.6 % (47-70); Platelet Count 273 K/mm3 (150-450); RBC Distribution Width CV 15.7 % (11.6-14.6); RBC Distribution Width SD 53.5 fl (35.1-43.9); Red Blood Count 4.42 M/mm3 (4.2-5.4); White Blood Count 11.5 K/mm3 (4.4-11.0)
[2020-06-04 23:16] LABS: International Normalized Ratio 1.1; Partial Thromboplast Time 29.5 Seconds (24.1-36.2); Prothrombin Time (Protime)PT. 14.1 SECONDS (11.7-14.9)
[2020-06-04 23:25] LABS: ALB/GLOB Ratio 1.1 RATIO (0.9-2.4); AST(SGOT) 68 U/L (15-37); Alanine Aminotransfer ALT/SGPT 109 U/L (13-56); Albumin, Serum 4.3 g/dL (3.2-5.0); Alkaline Phosphatase 108 U/L (45-117); Anion Gap 7 (5-15); BUN 24 mg/dL (7-18); BUN/Creat Ratio 20.5 RATIO (10-20); Calcium,Total 9.5 mg/dL (8.5-10.1); Chloride 97 mmol/L (98-107); Creatinine, Serum 1.17 mg/dL (0.55-1.02); EST Glomerular Filtration Rate 47 mL/min (>60); Est Glom Filt Rate - Afr Amer 57 mL/min (>60); Estimated Creatinine Clearance 30.14 ml/min; Globulin 3.8 g/dL (2.2-4.2); Glucose 138 mg/dL (74-106); Potassium 4.1 mmol/L (3.5-5.1); Protein, Total 8.1 g/dL (6.4-8.2); Sodium Level 130 mmol/L (136-145)
[2020-06-04 23:27] LABS: Bacteria 0 SEEN /hpf (None Seen); Mucous, Urine 0 SEEN /hpf (<or=2+); Red Blood Cells-Urine 0 SEEN /hpf (0-5); Squamous Epithelial Cells - UA 0 SEEN /hpf (5-10); White Blood Cells 0 SEEN /hpf (0-5)
[2020-06-04 23:29] LABS: BNP,B-Type NATRIURETIC PEPTIDE 561.4 pg/mL (0-100)
[2020-06-04 23:30] LABS: Color, Urine Yellow (Yellow); Glucose, Dipstick Normal (Normal); Ketone-Dipstick Negative (Negative); Leukocyte Esterase-Dipstick Negative /ul (Negative); Nitrite-Dipstick Negative (Negative); Occult Blood-Urine Negative /ul (Negative); Protein-Dipstick Negative (Negative); Urine Bilirubin Dipstick Negative (Negative); Urine Clarity Clear (Clear); Urine Urobilinogen Normal (Normal); Urine pH 6.5 (5.0 - 8.0)
--- NOTE | 2020-06-04 23:39 | CT_ITS ---
HISTORY: SOB X COUPLE WEEKSHX:HTN,HLD,A-FIB,CARDIOVERSION AND HEART STENT TECHNIQUE: Helically acquired images were obtained of the chest following the intravenous administration of 100 ML of Isovue-370 Iodinated contrast. as per pulmonary angiogram protocol with 2D , without 3-D MIP reconstructions. A radiation dose optimization technique was used for this scan. COMPARISON: Chest x-ray most recently from 40 minutes earlier FINDINGS: # of images incl. paperwork: [id number] Interstitial pulmonary edema. Airspace edema. Atelectasis greatest within the left and right lower lobes. Small left and moderate right pleural effusion Within the thoracic spinethere is a kyphosis with multilevel degenerative disc disease that is mild. Some facet arthropathy Vertebral body height is normal. Facets are well aligned. Apparent rib fracture on the sagittal 2-D reformats gross to be daily respiratory motion. No acute rib fractures are perceived Heart is enlarged. Coronary artery calcific ASCVD is severe. Left atrium and ventricle are mildly dilated. Thoracic aorta diseased with atherosclerotic plaque. No aneurysms, stenoses, dissections, nor occlusions. No axillary or mediastinal adenopathy. No pulmonary emboli are perceived. Reflux of the contrast bolus in the IVC and hepatic veins Visualized portions of the upper abdomen are without identified acute pathology. CT/CTA Chest W/WO Contrast IMPRESSION: No pulmonary embolism, aortic aneurysm, or aortic dissection. CHF. Pulmonary edema, atelectasis, pleural effusion Individualized dose optimization techniques were used for this CT. at 0041 Reported and signed by: Vernon Miranda MD Electronically Signed: Vernon Miranda MD at 0:39 EST Tel , Service support ,
[2020-06-04 23:55] LABS: Lactic Acid 1.1 mmol/L (0.4-1.9)
[2020-06-05] VITALS (20 sets, daily range): BP systolic 101–136; BP diastolic 55–95; PULSE 49–123; RESP 18–20; TEMP 36.3–36.8; O2SAT 92–98; BMI 26.1
[2020-06-05] MEDS: Furosemide 100 MG/10 ML Vial 80 MG IV (00:19)
--- NOTE | 2020-06-05 01:20 | PCM.HP.STD ---
Problem List (1) Acute congestive heart failure Status: Acute (2) Bilateral pleural effusion Status: Acute (3) Hypoxemia Status: Acute (4) [employer] current use of anticoagulant Status: Chronic (5) Weakness Status: Acute (6) Shortness of breath Status: Acute (7) Pure hypercholesterolemia Status: Chronic (8) ALVERTO on CPAP Status: Chronic (9) Essential hypertension Status: Chronic (10) Atherosclerotic heart disease of [place] coronary artery without angina pectoris Status: Chronic Qualifiers: (11) Presence of stent in coronary artery Status: Chronic Comment: Successful PTCA/LIZBETH to LCX per cath 08/20/19; PCI/LIZBETH to mid LAD 01/15/09; PCI/BMS to prox LAD 08/20/07 (12) Atrial fibrillation status post cardioversion Status: Chronic (13) NSTEMI (non-ST elevated myocardial infarction) Status: Resolved History of Present Illness Date of Admission: 06/05/20 Chief Complaint: sob The patient is a 84 year old F with a significant history of CAD status post stent; hypertension; paroxysmal A. fib who presents emergency department with 1 day history of progressively worsening shortness of breath. She has been having shortness of breath for about 2 months but it was excessive on the day of presentation. She called the emergency department because her oxygen saturation was 83% on room air and she was advised to come to the emergency department. She reports chronic leg edema. She reports a weight gain of about 10 pounds. She is weak and fatigued. She denies paroxysmal nocturnal dyspnea but stated that she wake up many times at night because of insomnia. She denies orthopnea. She keep the head of her bed elevated because of acid reflux. Of note patient was at hospital on 05/05/2020 and discharged on 05/08/2020. Admission diagnoses included new onset atrial fibrillation with RVR. Past Medical History Past Medical History (Chronic Problems): Chronic Problems (Last Reviewed 06/05/20 @ 02:[address] Lopez Caceres MD) USP current use of anticoagulant (Chronic) Pure hypercholesterolemia (Chronic) ALVERTO on CPAP (Chronic) Essential hypertension (Chronic) Atherosclerotic heart disease of [place] coronary artery without angina pectoris (Chronic) Presence of stent in coronary artery (Chronic ~08/20/19) Successful PTCA/LIZBETH to LCX per cath 08/20/19; PCI/LIZBETH to mid LAD 01/15/09; PCI/BMS to prox LAD 08/20/07 Atrial fibrillation status post cardioversion (Chronic) Medical History: Medical History (Last Reviewed 06/05/20 @ 02:[address] Lopez Caceres MD) [employer] current use of anticoagulant (Chronic) Z79.01 Edema (Inactive) R60.9 Weakness (Acute) R53.1 Shortness of breath (Acute) R06.02 Pure hypercholesterolemia (Chronic) E78.00 ALVERTO on CPAP (Chronic) G47.33, Z99.89 Essential hypertension (Chronic) I10 Atherosclerotic heart disease of [place] coronary artery without angina pectoris (Chronic) I25.10 Presence of stent in coronary artery (Chronic) Onset Date: ~08/20/19 Z95.5 Successful PTCA/LIZBETH to LCX per cath 08/20/19; PCI/LIZBETH to mid LAD 01/15/09; PCI/BMS to prox LAD 08/20/07 Atrial fibrillation status post cardioversion (Chronic) I48.91 NSTEMI (non-ST elevated myocardial infarction) (Resolved) I21.4 CAD (coronary artery disease) I25.10 Hypokalemia E87.6 HTN (hypertension) I10 Hyperlipidemia E78.5 Allergies meperidine [From Demerol] Adverse Reaction (Verified 06/04/20 22:49) Nausea Home Medications: Ambulatory Orders Medication Instructions Recorded Atorvastatin Calcium 40 mg PO DAILY 08/19/19 Clopidogrel Bisulfate [Clopidogrel] 75 mg PO DAILY 08/19/19 Gabapentin [Neurontin] 600 mg PO LUNCH 08/19/19 Gabapentin [Neurontin] 600 mg PO QHS 08/19/19 Losartan Potassium 50 mg PO BID 08/19/19 Pramipexole Di-HCl [Mirapex] 0.25 mg PO BID PRN PRN 08/19/19 Sertraline HCl [Zoloft] 50 mg PO DAILY 08/19/19 Sucralfate [Carafate] 1 tab PO BIDCM PRN 08/19/19 Aspirin E.C. [Ecotrin] 81 mg PO DAILY@0800 tab 08/21/19 trazodone 50 mg tablet 50 mg PO QHS PRN 12/30/19 Acetaminophen [Tylenol] 650 mg PO Q6H PRN PRN 05/05/20 Ascorbic Acid [Vitamin C] 250 mg PO DAILY 05/05/20 Calcium Carbonate/Vitamin D3 1 tab PO DAILY 05/05/20 [Calcium 600-Vit D3 200 Tablet] Dextran 70/He-Cell [Tears 1 drp 4X/DAY PRN PRN 05/05/20 Naturale, Artificial Tears] Dicyclomine HCl [Bentyl] 10 mg PO ACHS PRN 05/05/20 Docusate Sodium [Dulcolax Stool 100 mg PO BID 05/05/20 Softener] Fexofenadine HCl [Ratna Allergy] 60 mg PO DAILY 05/05/20 Flaxseed Oil 1,000 mg PO DAILY 05/05/20 Multivit-Min/FA/Lycopen/Lutein 1 tab PO DAILY 05/05/20 [Centrum Silver Tablet] Nitroglycerin SL (ED ONLY) 0.4 mg SUBLINGUAL X1 05/05/20 [Nitrostat] Wheeler-3 Fatty Acids/Fish Oil 1 ea PO BID 05/05/20 [Wheeler 3 1,000 mg Softgel] Pantoprazole Sodium [Protonix] 40 mg PO DAILY 05/05/20 Sertraline HCl [Zoloft] 25 mg PO DAILY 05/05/20 Vitamin B Complex [B Complex] 1 tab PO DAILY 05/05/20 traMADol 50 mg PO Q6H PRN PRN 05/05/20 Melatonin 10 mg PO PRN PRN 05/06/20 Metoprolol Tartrate [Lopressor 100 mg PO BID #60 tab 05/07/20 (beta dominic)] amlodipine 2.5 mg tablet 2.5 mg PO DAILY #90 tab 06/01/20 apixaban 2.5 mg tablet 2.5 mg PO BID #60 tab 06/04/20 furosemide 20 mg tablet 40 mg PO DAILY #90 tab 06/04/20 Surgical History: Surgical History (Last Reviewed 06/05/20 @ 02:[address] Lopez Caceres MD) Presence of coronary angioplasty implant and graft Onset Date: ~08/20/19 Z95.5 Successful PTCA/LIZBETH to LCX per cath 08/20/19 History of appendectomy Z90.49 History of carpal tunnel surgery Z98.890 History of left breast biopsy Z98.890 History of total hysterectomy Z90.710 S/P PTCA (percutaneous transluminal coronary angioplasty) Z98.61 Surgical History: angioplasty - cardiac stent, last placed circa 2006 Psychiatric History: No pertinent psych hx PORTER MARINA History: No pertinent PORTER MARINA history Smoking Status: Never smoker Drugs: None - *Family History Maternal Family History: Family History (Last Reviewed 06/05/20 @ 02:[address] Lopez Caceres MD) Father Heart disease Brother Diabetes Mother COPD (chronic obstructive pulmonary disease) Grandfather Heart disease History Items: COPD Paternal Family History: Family History (Last Reviewed 06/05/20 @ 02:[address] Lopez Caceres MD) Father Heart disease Brother Diabetes Mother COPD (chronic obstructive pulmonary disease) Grandfather Heart disease History Items: Heart Disease Review of Systems Constitutional: Reports: Weakness, Fatigue. Denies: Chills, Fever, Weight Change HEENT: Denies: Head Aches, Sinus Congestion, Sinus Drainage Cardiovascular: Denies: Chest Pain, Palpitations Respiratory: Reports: Shortness of Breath. Denies: Cough, Sputum production Gastrointestinal: Denies: Abdominal Pain, Nausea, Vomiting Genitourinary: Denies: Dysuria Musculoskeletal: Denies: Joint Pain, Joint Tenderness Skin: Denies: Rash, Wounds Neurological: Denies: Numbness, Tingling, Focal weakness Psychiatric: Denies: Anxiety, Depression, Homicidal Ideations, Suicidal Ideations Hematologic/ Lymphatic: Denies: Easy Bruising, Easy Bleeding VTE Information - Inpt Only VTE Present on Admission: No VTE Mechan Device Prophylaxis: None VTE Pharm Prophylaxis ordered?: No Patient Problems: Active and Suspected Problems (Last Reviewed 06/05/20 @ 02:[address] Lopez Caceres MD) Acute congestive heart failure (Acute) Bilateral pleural effusion (Acute) Hypoxemia (Acute) Weakness (Acute) Shortness of breath (Acute) - Physical Exam Vitals/I&O's: Vital Signs Temp Pulse Resp BP Pulse Ox 98.1 F 54 L 18 121/55 H 95 06/05/20 00:54 06/05/20 00:53 06/05/20 00:53 06/05/20 00:53 06/05/20 00:53 Oxygen Flow Rate (L/min) 5 Oxygen Delivery Method Nasal Cannula Weight: 70.6 kg Body Mass Index (BMI) 27.6 General: Alert, Oriented x3, Cooperative HEENT: Atraumatic, PERRLA, EOMI, Normocephalic Neck: Supple, No JVD, Negative Carotid Bruits Lungs: Clear to auscultation, Normal air movement Cardiovascular: Normal S1, Normal S2, No murmurs, Bradycardic Abdomen: Bowel Sounds Present, Soft, Non Tender Extremities: Capillary Refill Less than 3 Seconds, Edema - 1+ pitting edema bilateral feet; right foot worse than left foot. Skin: No rashes, No breakdown Musculoskeletal: No Tenderness to Palpation of Joints or Extremities Neurological: Cranial nerves II-XII grossly intact Psych/Mental Status: Normal Affect, Appropriate Microbiology Past 72 Hours 06/04/20 23:02 Mucosa - Nose SARS-CoV-2 Antigen (Rapid) - Final Laboratory Results 06/04/20 22:50: Sodium 130 L, Potassium 4.1, Chloride 97 L, Carbon Dioxide 26.0, Anion Gap 7, BUN 24 H, Creatinine 1.17 H, Estim Creat Clear Calc 30.14, Est GFR (MDRD) Af Amer 57 L, Est GFR (MDRD) Non-Af 47 L, BUN/Creatinine Ratio 20.5 H, Glucose 138 H, Calcium 9.5, Total Bilirubin 0.80, AST 68 H, ALT 109 H, Alkaline Phosphatase 108, Troponin I < 0.015, Total Protein 8.1, Albumin 4.3, Globulin 3.8, Albumin/Globulin Ratio 1.1 06/04/20 22:50: WBC 11.5 H, RBC 4.42, Hgb 13.2, Hct 41.1, MCV 93.0, MCH 29.9, MCHC 32.1, RDW Std Deviation 53.5 H, RDW Coeff of Brian 15.7 H, Plt Count 273, MPV 9.4, Immature Gran % (Auto) 0.400, Neut % (Auto) 74.6 H, Lymph % (Auto) 19.3, [place] % (Auto) 4.0, Eos % (Auto) 1.4, Baso % (Auto) 0.3, Absolute Neuts (auto) 8.6 H, Absolute Lymphs (auto) 2.22, Nucleated RBC % 0 06/04/20 22:50: PT 14.1, INR 1.1, APTT 29.5 06/04/20 22:50: B-Natriuretic Peptide 561.4 H 06/04/20 23:05: Lactic Acid 1.1 06/04/20 23:20: Urine Color Yellow, Urine Clarity Clear, Urine pH 6.5, Ur Specific [place] 1.010, Urine Protein Negative, Urine Glucose (UA) Normal, Urine Ketones Negative, Urine Occult Blood Negative, Urine Nitrite Negative, Urine Bilirubin Negative, Urine Urobilinogen Normal, Ur Leukocyte Esterase Negative, Urine RBC 0 SEEN, Urine WBC 0 SEEN, Ur Squamous Epith Cells 0 SEEN, Urine Bacteria 0 SEEN, Urine Mucus 0 SEEN Assessment/Plan All Active Problems (Last Reviewed 06/05/20 @ 02:[address] Lopez Caceres MD) Acute congestive heart failure (Acute) Bilateral pleural effusion (Acute) Hypoxemia (Acute) Weakness (Acute) Shortness of breath (Acute) NSTEMI (non-ST elevated myocardial infarction) (Resolved) The patient is a 84 year old F with a significant history of CAD status post stent; hypertension; paroxysmal A. fib who presents to the emergency department with 1 day history of progressively worsening shortness of breath and found to have radiographic evidence of pulmonary edema with bilateral pleural effusion. Acute heart failure with preserved ejection fraction Echocardiogram on 05/05/2020: Left ventricle systolic function is normal. Estimated EF 65%. Diastolic dysfunction was unable to be assessed. Mild to moderate valvular insufficiency. Right ventricular systolic pressure was [address] on monitored bed at the progressive care unit Weight on admission to the floor; and then daily Strict I&O's Independent review of chest x-ray and CT chest confirms pulmonary edema with bilateral pleural effusion. BNP is elevated at 561.4 On Lasix 40 mg p.o. at home. Received Lasix 80 mg IV push x1 at emergency department. Lasix 40 mg IV twice daily ordered. Supplement potassium. Monitor electrolytes and renal function Trend blood pressure Fluid restriction of 1500 mls daily Cardiac diet Generalized weakness Likely second heart failure PT and OT to work with patient for strengthening and balance training. Paroxysmal A. fib Patient with sinus bradycardia on presentation Metoprolol continued. Eliquis continued Hypertension Blood pressure is not within goal Amlodipine continued Losartan continued Metoprolol continued Trend blood pressure and adjust blood pressure medication Chronic pain Neurontin continued Insomnia Patient on home melatonin. But requiring stronger drug at this time since reportedly her melatonin does not help her. Karen ordered. DVT prophylaxis On home Eliquis for A. fib; continued. Inpatient E&M: 93111 Init Hosp L3
--- NOTE | 2020-06-05 02:18 | PCS.PANDOC ---
PANDEMIC DOCUMENTATION INITIATED: Date: 06/05/2020 Time: 206
[2020-06-05 05:13] LABS: Absolute Lymphocyte Count 1.69 X10^3/uL (0.83-4.51); Basophil# 0.02 X10^3/uL; Basophil% 0.2 % (0-1); Eosinophil# 0.13 X10^3/uL; Eosinophils% 1.6 % (0-5); Hematocrit 41.1 % (37-47); Hemoglobin 13.4 g/dL (12.0-15.0); Lymphocyte # 1.69 X10^3/ul (4.0); Lymphocyte % 20.7 % (19-41); Mean Corp Hgb Conc 32.6 g/dL (32-36); Mean Corpuscular Volume 92.2 fL (81-99); Mean Platelet Vol. 9.3 fl (6.2-12.0); Monocyte# 0.34 X10^3/uL; Monocyte% 4.2 % (0-10); NRBC Flagged by Analyzer 0 % (0-5); Neutrophil # 5.96 X10^3/uL (2.7-7.7); Neutrophil % 72.9 % (47-70); Platelet Count 235 K/mm3 (150-450); RBC Distribution Width CV 15.5 % (11.6-14.6); RBC Distribution Width SD 51.8 fl (35.1-43.9); Red Blood Count 4.46 M/mm3 (4.2-5.4); White Blood Count 8.2 K/mm3 (4.4-11.0)
[2020-06-05 05:33] LABS: Anion Gap 7 (5-15); BUN 25 mg/dL (7-18); BUN/Creat Ratio 23.1 RATIO (10-20); Calcium,Total 9.7 mg/dL (8.5-10.1); Chloride 96 mmol/L (98-107); Creatinine, Serum 1.08 mg/dL (0.55-1.02); EST Glomerular Filtration Rate 51 mL/min (>60); Est Glom Filt Rate - Afr Amer 62 mL/min (>60); Estimated Creatinine Clearance 32.65 ml/min; Glucose 108 mg/dL (74-106); Potassium 3.2 mmol/L (3.5-5.1); Sodium Level 133 mmol/L (136-145)
[2020-06-05] MEDS: Sertraline 50 MG Tablet 75 MG PO (08:50)
[2020-06-05] MEDS: Omega-3 Acid Ethyl Esters 1 GM Capsule PO ×2 (08:50→21:16)
--- NOTE | 2020-06-05 08:50 | CPS ---
Pt wears a CPAP @HS @home but doesn't want to use one of WC machines. she doesn't think she will be here very long so she'll wear 2lpm via [employer].
[2020-06-05] MEDS: Docusate Sodium 100 MG Capsule PO ×2 (08:51→21:14)
[2020-06-05] MEDS: Vitamin B Comp W-C Capsule 1 CAP PO (08:51)
[2020-06-05] MEDS: amLODIPine 2.5 MG Tablet PO (08:51)
[2020-06-05] MEDS: Aspirin E.C. 81 MG Tablet PO (08:51)
[2020-06-05] MEDS: Clopidogrel Bisulfate 75 MG Tablet PO (08:51)
[2020-06-05] MEDS: Calcium Carb/Vitamin D 1 TABLET Tablet PO (08:51)
[2020-06-05] MEDS: Pantoprazole Sodium 40 MG Tablet PO (08:51)
[2020-06-05] MEDS: Losartan Potassium 50 MG Tablet PO ×2 (08:52→21:15)
[2020-06-05] MEDS: Metoprolol Tartrate 100 MG Tablet PO ×2 (08:52→21:15)
[2020-06-05] MEDS: Loratadine 10 MG Tablet 5 MG PO (08:52)
[2020-06-05] MEDS: APIXABAN 2.5 MG TABLET PO ×2 (08:53→21:15)
[2020-06-05] MEDS: Ascorbic Acid 500 MG Tablet 250 MG PO (08:53)
[2020-06-05] MEDS: Multivitamins,Ther W-Minerals Tablet 1 TABLET PO (08:53)
[2020-06-05] MEDS: 0.9% Saline Lock 10 ML Syringe IV ×3 (08:58→23:18)
[2020-06-05] MEDS: Furosemide 40 MG/4 ML Vial IV ×2 (08:58→17:22)
[2020-06-05] MEDS: Gabapentin 600 MG Tablet PO ×2 (12:29→21:16)
--- NOTE | 2020-06-05 12:53 | PCM.PN.HOSP ---
Patient Problems: Active and Suspected Problems (Last Reviewed 06/05/20 @ 02:[address] Lopez Caceres MD) Acute congestive heart failure (Acute) Bilateral pleural effusion (Acute) Hypoxemia (Acute) Weakness (Acute) Shortness of breath (Acute) Subjective: breathing well. currently on RA. Vitals/I&O's: Vital Signs Temp Pulse Resp BP Pulse Ox 36.3 C L 62 18 135/72 H 92 06/05/20 08:40 06/05/20 08:52 06/05/20 08:40 06/05/20 08:52 06/05/20 08:50 Oxygen Flow Rate (L/min) 5 Oxygen Delivery Method Room Air Weight: 64.4 kg Body Mass Index (BMI) 26.1 Intake and Output for Last 24 Hours 06/03/20 06/04/20 06/05/20 23:59 23:59 23:59 Intake Total 520 / 520 Output Total 4500 / 4500 Balance -3980 / -3980 General: Alert, No apparent distress HEENT: Atraumatic, Normocephalic Oral: Moist Mucosa, No Gingival or Mucosal Lesions/ Ulcerations Neck: No Nodes, Thyroid Normal Size and Texture Lungs: Clear to auscultation, Normal air movement, No rhonchi, No wheeze, No rales Cardiovascular: Regular rate, Regular Rhythm, Normal S1, Normal S2, No murmurs Abdomen: Bowel Sounds Present, Soft, Non Tender, Non-Distended, No Hepato-splenomegaly Extremities: No edema, No Calf Tenderness Microbiology Past 72 Hours 06/04/20 23:02 Mucosa - Nose SARS-CoV-2 Antigen (Rapid) - Final Laboratory Results 06/04/20 22:50: Sodium 130 L, Potassium 4.1, Chloride 97 L, Carbon Dioxide 26.0, Anion Gap 7, BUN 24 H, Creatinine 1.17 H, Estim Creat Clear Calc 30.14, Est GFR (MDRD) Af Amer 57 L, Est GFR (MDRD) Non-Af 47 L, BUN/Creatinine Ratio 20.5 H, Glucose 138 H, Calcium 9.5, Total Bilirubin 0.80, AST 68 H, ALT 109 H, Alkaline Phosphatase 108, Troponin I < 0.015, Total Protein 8.1, Albumin 4.3, Globulin 3.8, Albumin/Globulin Ratio 1.1 06/04/20 22:50: WBC 11.5 H, RBC 4.42, Hgb 13.2, Hct 41.1, MCV 93.0, MCH 29.9, MCHC 32.1, RDW Std Deviation 53.5 H, RDW Coeff of Brian 15.7 H, Plt Count 273, MPV 9.4, Immature Gran % (Auto) 0.400, Neut % (Auto) 74.6 H, Lymph % (Auto) 19.3, [place] % (Auto) 4.0, Eos % (Auto) 1.4, Baso % (Auto) 0.3, Absolute Neuts (auto) 8.6 H, Absolute Lymphs (auto) 2.22, Nucleated RBC % 0 06/04/20 22:50: PT 14.1, INR 1.1, APTT 29.5 06/04/20 22:50: B-Natriuretic Peptide 561.4 H 06/04/20 23:05: Lactic Acid 1.1 06/04/20 23:20: Urine Color Yellow, Urine Clarity Clear, Urine pH 6.5, Ur Specific [place] 1.010, Urine Protein Negative, Urine Glucose (UA) Normal, Urine Ketones Negative, Urine Occult Blood Negative, Urine Nitrite Negative, Urine Bilirubin Negative, Urine Urobilinogen Normal, Ur Leukocyte Esterase Negative, Urine RBC 0 SEEN, Urine WBC 0 SEEN, Ur Squamous Epith Cells 0 SEEN, Urine Bacteria 0 SEEN, Urine Mucus 0 SEEN 06/05/20 05:06: WBC 8.2, RBC 4.46, Hgb 13.4, Hct 41.1, MCV 92.2, MCH 30.0, MCHC 32.6, RDW Std Deviation 51.8 H, RDW Coeff of Brian 15.5 H, Plt Count 235, MPV 9.3, Immature Gran % (Auto) 0.400, Neut % (Auto) 72.9 H, Lymph % (Auto) 20.7, [place] % (Auto) 4.2, Eos % (Auto) 1.6, Baso % (Auto) 0.2, Absolute Neuts (auto) 6.0, Absolute Lymphs (auto) 1.69, Nucleated RBC % 0 06/05/20 05:06: Sodium 133 L, Potassium 3.2 L, Chloride 96 L, Carbon Dioxide 30.0, Anion Gap 7, BUN 25 H, Creatinine 1.08 H, Estim Creat Clear Calc 32.65, Est GFR (MDRD) Af Amer 62, Est GFR (MDRD) Non-Af 51 L, BUN/Creatinine Ratio 23.1 H, Glucose 108 H, Calcium 9.7 Current Medications Acetaminophen (Acetaminophen 325 Mg Tablet) 650 mg PO Q6H PRN PRN PRN Reason: Pain Score 1-10/Temp > 100.7 F Amlodipine Besylate (Amlodipine 2.5 Mg Tablet) 2.5 mg PO DAILY [facility] Last Admin: 06/05/20 08:51 Dose: 2.5 mg Documented by: Apixaban (Apixaban 2.5 Mg Tablet) 2.5 mg PO BID [facility] Last Admin: 06/05/20 08:53 Dose: 2.5 mg Documented by: Ascorbic Acid (Ascorbic Acid 500 Mg Tablet) 250 mg PO DAILY [facility] Last Admin: 06/05/20 08:53 Dose: 250 mg Documented by: Aspirin (Aspirin E.C. 81 Mg Tablet) 81 mg PO DAILY@0800 [facility] Last Admin: 06/05/20 08:51 Dose: 81 mg Documented by: Atorvastatin Calcium (Atorvastatin Calcium 40 Mg Tablet) 40 mg PO DAILY@2200 [facility] Calcium/Vitamin D (Calcium Carb/Vitamin D 1 Tablet Tablet) 1 tablet PO DAILY [facility] Last Admin: 06/05/20 08:51 Dose: 1 tablet Documented by: Clopidogrel Bisulfate (Clopidogrel Bisulfate 75 Mg Tablet) 75 mg PO DAILY [facility] Last Admin: 06/05/20 08:51 Dose: 75 mg Documented by: Dicyclomine HCl (Dicyclomine 10 Mg Capsule) 10 mg PO ACHS PRN PRN Reason: cramps Docusate Sodium (Docusate Sodium 100 Mg Capsule) 100 mg PO BID [facility] Last Admin: 06/05/20 08:51 Dose: 100 mg Documented by: Furosemide (Furosemide 40 Mg/4 Ml Vial) 40 mg IV BID@1000,1800 [facility] Last Admin: 06/05/20 08:58 Dose: 40 mg Documented by: Gabapentin (Gabapentin 600 Mg Tablet) 600 mg PO LUNCH [facility] Last Admin: 06/05/20 12:29 Dose: 600 mg Documented by: Gabapentin (Gabapentin 600 Mg Tablet) 600 mg PO QHS [facility] Loratadine (Loratadine 10 Mg Tablet) 5 mg PO DAILY [facility] Last Admin: 06/05/20 08:52 Dose: 5 mg Documented by: Losartan Potassium (Losartan Potassium 50 Mg Tablet) 50 mg PO BID [facility] Last Admin: 06/05/20 08:52 Dose: 50 mg Documented by: Metoprolol Tartrate (Metoprolol Tartrate 100 Mg Tablet) 100 mg PO BID [facility] Last Admin: 06/05/20 08:52 Dose: 100 mg Documented by: Multivitamins (Vitamin B Comp W-C Capsule) 1 capsule PO DAILY [facility] Last Admin: 06/05/20 08:51 Dose: 1 capsule Documented by: Multivitamins/Minerals (Multivitamins,Ther W-Minerals Tablet) [facility] Last Admin: 06/05/20 08:53 Dose: 1 tablet Documented by: [id number] Ethyl Esters ([place]-3 Acid Ethyl Esters 1 Gm Capsule) 1 gm PO BID [facility] Last Admin: 06/05/20 08:50 Dose: 1 gm Documented by: Ondansetron HCl (Ondansetron 4 Mg/2 Ml Vial) 4 mg IV Q8H PRN PRN PRN Reason: NAUSEA/VOMITING Pantoprazole Sodium (Pantoprazole Sodium 40 Mg Tablet) 40 mg PO DAILY [facility] Last Admin: 06/05/20 08:51 Dose: 40 mg Documented by: Potassium Chloride (Potassium Chloride 20 Meq Tablet) 20 meq [facility] Last Admin: 06/05/20 08:52 Dose: 20 meq Documented by: Pramipexole Dihydrochloride (Pramipexole Di-Hcl 0.25 Mg Tablet) 0.25 mg PO BID PRN PRN PRN Reason: SCIATICA Sertraline HCl (Sertraline 50 Mg Tablet) 75 mg PO DAILY [facility] Last Admin: 06/05/20 08:50 Dose: 75 mg Documented by: Sodium Chloride (0.9% Saline Lock 10 Ml Syringe) 10 - 40 ml IV UD PRN PRN Reason: SALINE FLUSH Last Admin: 06/05/20 08:58 Dose: 10 ml Documented by: Sucralfate (Sucralfate 1 Gm Tablet) 1 gm PO BID@0700,1600 PRN PRN Reason: GERD Tramadol HCl (Tramadol 50 Mg Tablet) 50 mg PO Q6H PRN PRN PRN Reason: Pain Score 1-10 Zolpidem Tartrate (Zolpidem Tartrate 5 Mg Tablet) 5 mg PO QHS PRN PRN PRN Reason: INSOMNIA Medical Necessity - Tobacco Use Smoking Status: Never smoker Assessment/Plan All Active Problems (Last Reviewed 06/05/20 @ 02:[address] Lopez Caceres MD) Acute congestive heart failure (Acute) Bilateral pleural effusion (Acute) Hypoxemia (Acute) Weakness (Acute) Shortness of breath (Acute) NSTEMI (non-ST elevated myocardial infarction) (Resolved) 1. acute HFpEF EF 65% bilateral pleural effusions continue with IV furosemide on metoprolol tartrate and losartan 2. pafib continue apixaban and metoprolol tartrate 3. VTE prophylaxis: anticoagulated Procedures: Other Procedure - See Report - non billable rounding as pt admitted after leonardo
--- NOTE | 2020-06-05 15:14 | CASEMGMT ---
Readmission chart review: Pt was initially admitted to PCU 05/05-05/08/20 f Afib RVR, hypotension. Pt was discharged home with [facility] for PT/OT at that time. Pt is no longer current with [facility] at this time. Pt did not qualify for home oxygen at discharge. Pt returned to [facility] ED on 06/04/20 with increased SOB for a couple of weeks-89% RA for EMS-pt states received 2nd COVID vaccine today. Pt is currently on room air at this time. Pt's BNPt is 561.4 on arrival. CM to follow for any further discharge planning/needs. SStfransisca RIVERA CM
[2020-06-05] MEDS: Atorvastatin Calcium 40 MG Tablet PO (21:15)
[2020-06-05] MEDS: Zolpidem Tartrate 5 MG Tablet PO (21:20)
[2020-06-05] MEDS: Metoprolol Tartrate 5 MG/5 ML Vial IV (23:17)
[2020-06-06] VITALS (8 sets, daily range): BP systolic 89–118; BP diastolic 56–79; PULSE 68–115; RESP 15–20; TEMP 36.6–37; O2SAT 93–96
[2020-06-06 08:14] LABS: Anion Gap 6 (5-15); BUN 33 mg/dL (7-18); BUN/Creat Ratio 28.2 RATIO (10-20); Calcium,Total 9.1 mg/dL (8.5-10.1); Chloride 96 mmol/L (98-107); Creatinine, Serum 1.17 mg/dL (0.55-1.02); EST Glomerular Filtration Rate 47 mL/min (>60); Est Glom Filt Rate - Afr Amer 57 mL/min (>60); Estimated Creatinine Clearance 30.14 ml/min; Glucose 99 mg/dL (74-106); Potassium 3.5 mmol/L (3.5-5.1); Sodium Level 134 mmol/L (136-145)
[2020-06-06] MEDS: Docusate Sodium 100 MG Capsule PO (08:59)
[2020-06-06] MEDS: Vitamin B Comp W-C Capsule 1 CAP PO (09:00)
[2020-06-06] MEDS: Omega-3 Acid Ethyl Esters 1 GM Capsule PO (09:00)
[2020-06-06] MEDS: Aspirin E.C. 81 MG Tablet PO (09:00)
[2020-06-06] MEDS: Metoprolol Tartrate 100 MG Tablet PO (09:00)
[2020-06-06] MEDS: Sertraline 50 MG Tablet 75 MG PO (09:01)
[2020-06-06] MEDS: Furosemide 40 MG/4 ML Vial IV (09:01)
[2020-06-06] MEDS: 0.9% Saline Lock 10 ML Syringe IV (09:01)
[2020-06-06] MEDS: amLODIPine 2.5 MG Tablet PO (09:02)
[2020-06-06] MEDS: Calcium Carb/Vitamin D 1 TABLET Tablet PO (09:02)
[2020-06-06] MEDS: Clopidogrel Bisulfate 75 MG Tablet PO (09:02)
[2020-06-06] MEDS: Pantoprazole Sodium 40 MG Tablet PO (09:02)
[2020-06-06] MEDS: Multivitamins,Ther W-Minerals Tablet 1 TABLET PO (09:02)
[2020-06-06] MEDS: Ascorbic Acid 500 MG Tablet 250 MG PO (09:02)
[2020-06-06] MEDS: Loratadine 10 MG Tablet 5 MG PO (09:03)
[2020-06-06] MEDS: APIXABAN 2.5 MG TABLET PO (09:04)
[2020-06-06] MEDS: Losartan Potassium 50 MG Tablet PO (09:04)
--- NOTE | 2020-06-06 12:04 | DCINST_ITS ---
- Discharge Diagnoses Current Active Problems: Current Active and Chronic Problems (Last Reviewed 06/05/20 @ 02:[address] Lopez Caceres MD) Acute congestive heart failure (Acute) Bilateral pleural effusion (Acute) Hypoxemia (Acute) snf current use of anticoagulant (Chronic) Weakness (Acute) Shortness of breath (Acute) Pure hypercholesterolemia (Chronic) ALVERTO on CPAP (Chronic) Essential hypertension (Chronic) Atherosclerotic heart disease of [place] coronary artery without angina pectoris (Chronic) Presence of stent in coronary artery (Chronic ~08/20/19) Successful PTCA/LIZBETH to LCX per cath 08/20/19; PCI/LIZBETH to mid LAD 01/15/09; PCI/BMS to prox LAD 08/20/07 Atrial fibrillation status post cardioversion (Chronic) You will use the following diet at home:: Cardiac Your food should be the consistency of: Regular Your liquids should be the consistency of: Regular/Thin Discharge Activity: Return to Normal Activity Allergies/Adverse Reactions: Allergies meperidine [From Demerol] Adverse Reaction (Verified 06/04/20 22:49) Nausea Medications to take at Discharge Atorvastatin Calcium 40 mg PO DAILY 08/19/19 Clopidogrel Bisulfate [Clopidogrel] 75 mg PO DAILY 08/19/19 Gabapentin [Neurontin] 600 mg PO LUNCH 08/19/19 Gabapentin [Neurontin] 600 mg PO QHS 08/19/19 Losartan Potassium 50 mg PO BID 08/19/19 Pramipexole Di-HCl [Mirapex] 0.25 mg PO BID PRN PRN 08/19/19 Sertraline HCl [Zoloft] 50 mg PO DAILY 08/19/19 Sucralfate [Carafate] 1 tab PO BIDCM PRN 08/19/19 Aspirin E.C. [Ecotrin] 81 mg PO DAILY@0800 tab 08/21/19 trazodone 50 mg tablet 50 mg PO QHS PRN 12/30/19 Acetaminophen [Tylenol] 650 mg PO Q6H PRN PRN 05/05/20 Ascorbic Acid [Vitamin C] 250 mg PO DAILY 05/05/20 Calcium Carbonate/Vitamin D3 [Calcium 600-Vit D3 200 Tablet] 1 tab PO DAILY 05/05/20 Dextran 70/He-Cell [Tears Naturale, Artificial Tears] 1 drp 4X/DAY PRN PRN 05/05/20 Dicyclomine HCl [Bentyl] 10 mg PO ACHS PRN 05/05/20 Docusate Sodium [Dulcolax Stool Softener] 100 mg PO BID 05/05/20 Fexofenadine HCl [Ratna Allergy] 60 mg PO DAILY 05/05/20 Flaxseed Oil 1,000 mg PO DAILY 05/05/20 Multivit-Min/FA/Lycopen/Lutein [Centrum Silver Tablet] 1 tab PO DAILY 05/05/20 Nitroglycerin SL (ED ONLY) [Nitrostat] 0.4 mg SUBLINGUAL X1 05/05/20 [place]-3 Fatty Acids/Fish Oil [[place] 3 1,000 mg Softgel] 1 ea PO BID 05/05/20 Pantoprazole Sodium [Protonix] 40 mg PO DAILY 05/05/20 Sertraline HCl [Zoloft] 25 mg PO DAILY 05/05/20 Vitamin B Complex [B Complex] 1 tab PO DAILY 05/05/20 traMADol 50 mg PO Q6H PRN PRN 05/05/20 Melatonin 10 mg PO PRN PRN 05/06/20 Metoprolol Tartrate [Lopressor (beta dominic)] 100 mg PO BID #60 tab 05/07/20 amlodipine 2.5 mg tablet 2.5 mg PO DAILY #90 tab 06/01/20 apixaban 2.5 mg tablet 2.5 mg PO BID #60 tab 06/04/20 Furosemide [Lasix] 40 mg PO BID #60 tab 06/06/20 Potassium Chloride [K-Dur] 20 meq PO BID #60 tab 06/06/20 The following prescriptions were given: Potassium Chloride [K-Dur] 20 meq PO BID #60 tab Transmission Status: Pending to [facility] Furosemide [Lasix] 40 mg PO BID #60 tab Transmission Status: Pending to [facility] Primary Care Physician: Gladys Pickett MD [Primary Care Provider] - Please follow up with your Primary Care Physician in: 1-2 weeks Test Results: Test results from this visit will be discussed in further detail at your follow- up appointment, if applicable. Please Follow Up With: Kirk Gomes MD When: 2 weeks Proposed Discharge Date: 06/06/20
[2020-06-06] MEDS: Gabapentin 600 MG Tablet PO (12:24)
--- NOTE | 2020-06-06 13:18 | PCM.DC.SUM ---
<Larry Rogers - Last Filed: 06/06/20 13:18> Discharge Date and Diagnosis - Problem List Patient Problems: Active and Suspected Problems (Last Reviewed 06/05/20 @ 02:[address] Lopez Caceres MD) Acute congestive heart failure (Acute) Bilateral pleural effusion (Acute) Hypoxemia (Acute) Weakness (Acute) Shortness of breath (Acute) Date of Admission: 06/05/20 Date of Discharge: 06/06/20 - Primary Discharge Diagnosis Acute Problems: Active Problems (Last Reviewed 06/05/20 @ 02:[address] Lopez Caceres MD) Acute on chronic diastolic congestive heart failure, on complicated by pulmonary hypertension - Secondary Discharge Diagnosis Chronic Problems: Chronic Problems (Last Reviewed 06/05/20 @ 02:[address] 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 Overall pulmonary edema is less than the previous studies, however, there is greater consolidation within the left lower lobe with increasing pleural effusions compared to the previous study. This consolidation could just be atelectasis in the left lower lobe, however, pneumonia is within the differential.. CT/CTA Chest W/WO Contrast IMPRESSION: No pulmonary embolism, aortic aneurysm, or aortic dissection. CHF. Pulmonary edema, atelectasis, pleural effusion Individualized dose optimization techniques were used for this CT. Operations: None Procedures: None Summary of Care Provided: Hospital Course: The patient is a 84 year old F past medical history as above who presented to the emergency room with increased shortness of breath over the 1 day leading up to presentation. She noted that at home her oxygen saturation was 83% she was told to come to the emergency room. She had noticed a weight gain of about 10 pounds. She had a CTA of the chest demonstrating pulmonary edema and bilateral pleural effusions with an elevated beta natruretic peptide. The patient was admitted to the PCU and placed on telemetry with a diagnosis of acute on chronic diastolic congestive heart failure. She responded to therapy well had good output with IV Lasix. Patient was weaned off oxygen. Patient had had an echocardiogram in May of this year so a repeat was deferred-she has a known ejection fraction of 65% and she has RVSP of 35 mmHg with 1-2+ TVI. She was transitioned to an increased dose of Lasix for home along with potassium supplementation. Patient was discharged home in stable condition. She will follow up with her PCP in 1 to 2 weeks, follow-up with her tobacco sorter Dr. Gomes in 2 weeks. This patient was seen by Larry Rogers PA-C under the supervision of Doctor Maggy. [] Patient Problems: Active and Suspected Problems (Last Reviewed 06/05/20 @ 02:[address] Lopez Caceres MD) Acute congestive heart failure (Acute) Bilateral pleural effusion (Acute) Hypoxemia (Acute) Weakness (Acute) Shortness of breath (Acute) - Physical Exam Vitals/I&O's: Vital Signs Temp Pulse Resp BP Pulse Ox 97.9 F 105 H 18 116/79 96 06/06/20 08:56 06/06/20 09:00 06/06/20 08:56 06/06/20 08:56 06/06/20 08:56 Oxygen Flow Rate (L/min) 2 Oxygen Delivery Method Room Air Weight: 143 lb 15.39 oz Body Mass Index (BMI) 26.1 Intake and Output for Last 24 Hours 06/04/20 06/05/20 06/06/20 23:59 23:59 23:59 Intake Total 640 / 880 440 / 440 Output Total 4500 / 5100 1250 / 1250 Balance -3860 / -4220 -810 / -810 General: Alert, Oriented x3, Cooperative HEENT: Atraumatic, PERRLA, EOMI, Normocephalic Neck: Supple, No JVD, Negative Carotid Bruits Lungs: Clear to auscultation, Normal air movement Cardiovascular: Regular rate, No murmurs Abdomen: Bowel Sounds Present, Soft, Non Tender Extremities: No edema, Capillary Refill Less than 3 Seconds Skin: No rashes, No breakdown Musculoskeletal: No Tenderness to Palpation of Joints or Extremities Neurological: Cranial nerves II-XII grossly intact Psych/Mental Status: Normal Affect, Appropriate, Alert and oriented to time, place, person, mood and affect Microbiology Past 72 Hours 06/04/20 23:20 Urine, Clean Catch Urine Culture - Preliminary Culture exhibits no growth. 06/04/20 23:02 Mucosa - Nose SARS-CoV-2 Antigen (Rapid) - Final Laboratory Results 06/06/20 07:00: Sodium 134 L, Potassium 3.5, Chloride 96 L, Carbon Dioxide 32.0, Anion Gap 6, BUN 33 H, Creatinine 1.17 H, Estim Creat Clear Calc 30.14, Est GFR (MDRD) Af Amer 57 L, Est GFR (MDRD) Non-Af 47 L, BUN/Creatinine Ratio 28.2 H, Glucose 99, Calcium 9.1 Current Medications Acetaminophen (Acetaminophen 325 Mg Tablet) 650 mg PO Q6H PRN PRN PRN Reason: Pain Score 1-10/Temp > 100.7 F Amlodipine Besylate (Amlodipine 2.5 Mg Tablet) 2.5 mg PO DAILY [facility] Last Admin: 06/06/20 09:02 Dose: 2.5 mg Documented by: Apixaban (Apixaban 2.5 Mg Tablet) 2.5 mg PO BID [facility] Last Admin: 06/06/20 09:04 Dose: 2.5 mg Documented by: Ascorbic Acid (Ascorbic Acid 500 Mg Tablet) 250 mg PO DAILY [facility] Last Admin: 06/06/20 09:02 Dose: 250 mg Documented by: Aspirin (Aspirin E.C. 81 Mg Tablet) 81 mg PO DAILY@0800 [facility] Last Admin: 06/06/20 09:00 Dose: 81 mg Documented by: Atorvastatin Calcium (Atorvastatin Calcium 40 Mg Tablet) 40 mg PO DAILY@2200 [facility] Last Admin: 06/05/20 21:15 Dose: 40 mg Documented by: Calcium/Vitamin D (Calcium Carb/Vitamin D 1 Tablet Tablet) 1 tablet PO DAILY [facility] Last Admin: 06/06/20 09:02 Dose: 1 tablet Documented by: Clopidogrel Bisulfate (Clopidogrel Bisulfate 75 Mg Tablet) 75 mg PO DAILY [facility] Last Admin: 06/06/20 09:02 Dose: 75 mg Documented by: Dicyclomine HCl (Dicyclomine 10 Mg Capsule) 10 mg PO ACHS PRN PRN Reason: cramps Docusate Sodium (Docusate Sodium 100 Mg Capsule) 100 mg PO BID [facility] Last Admin: 06/06/20 08:59 Dose: 100 mg Documented by: Furosemide (Furosemide 40 Mg/4 Ml Vial) 40 mg IV BID@1000,1800 [facility] Last Admin: 06/06/20 09:01 Dose: 40 mg Documented by: Gabapentin (Gabapentin 600 Mg Tablet) 600 mg PO LUNCH [facility] Last Admin: 06/06/20 12:24 Dose: 600 mg Documented by: Gabapentin (Gabapentin 600 Mg Tablet) 600 mg PO QHS [facility] Last Admin: 06/05/20 21:16 Dose: 600 mg Documented by: Loratadine (Loratadine 10 Mg Tablet) 5 mg PO DAILY [facility] Last Admin: 06/06/20 09:03 Dose: 5 mg Documented by: Losartan Potassium (Losartan Potassium 50 Mg Tablet) 50 mg PO BID [facility] Last Admin: 06/06/20 09:04 Dose: 50 mg Documented by: Metoprolol Tartrate (Metoprolol Tartrate 100 Mg Tablet) 100 mg PO BID [facility] Last Admin: 06/06/20 09:00 Dose: 100 mg Documented by: Metoprolol Tartrate (Metoprolol Tartrate 5 Mg/5 Ml Vial) 5 mg IV Q1H PRN PRN PRN Reason: Heart rate of more than 110 Last Admin: 06/05/20 23:17 Dose: 5 mg Documented by: Multivitamins (Vitamin B Comp W-C Capsule) 1 capsule PO DAILY [facility] Last Admin: 06/06/20 09:00 Dose: 1 capsule Documented by: Multivitamins/Minerals (Multivitamins,Ther W-Minerals Tablet) [facility] Last Admin: 06/06/20 09:02 Dose: 1 tablet Documented by: [id number] Ethyl Esters ([place]-3 Acid Ethyl Esters 1 Gm Capsule) 1 gm PO BID [facility] Last Admin: 06/06/20 09:00 Dose: 1 gm Documented by: Ondansetron HCl (Ondansetron 4 Mg/2 Ml Vial) 4 mg IV Q8H PRN PRN PRN Reason: NAUSEA/VOMITING Pantoprazole Sodium (Pantoprazole Sodium 40 Mg Tablet) 40 mg PO DAILY [facility] Last Admin: 06/06/20 09:02 Dose: 40 mg Documented by: Potassium Chloride (Potassium Chloride 20 Meq Tablet) 20 meq PO DAILYCM [facility] Last Admin: 06/06/20 08:59 Dose: 20 meq Documented by: Pramipexole Dihydrochloride (Pramipexole Di-Hcl 0.25 Mg Tablet) 0.25 mg PO BID PRN PRN PRN Reason: SCIATICA Sertraline HCl (Sertraline 50 Mg Tablet) 75 mg PO DAILY [facility] Last Admin: 06/06/20 09:01 Dose: 75 mg Documented by: Sodium Chloride (0.9% Saline Lock 10 Ml Syringe) 10 - 40 ml IV UD PRN PRN Reason: SALINE FLUSH Last Admin: 06/06/20 09:01 Dose: 10 ml Documented by: Sucralfate (Sucralfate 1 Gm Tablet) 1 gm PO BID@0700,1600 PRN PRN Reason: GERD Tramadol HCl (Tramadol 50 Mg Tablet) 50 mg PO Q6H PRN PRN PRN Reason: Pain Score 1-10 Zolpidem Tartrate (Zolpidem Tartrate 5 Mg Tablet) 5 mg PO QHS PRN PRN PRN Reason: INSOMNIA Last Admin: 06/05/20 21:20 Dose: 5 mg Documented by: Discharge Diet: Low fat/ Low Cholesterol, 2000 mg Sodium Diet Discharge Activity: Return to Normal Activity Home Medications: Medications to take at Discharge Atorvastatin Calcium 40 mg PO DAILY 08/19/19 Clopidogrel Bisulfate [Clopidogrel] 75 mg PO DAILY 08/19/19 Gabapentin [Neurontin] 600 mg PO LUNCH 08/19/19 Gabapentin [Neurontin] 600 mg PO QHS 08/19/19 Losartan Potassium 50 mg PO BID 08/19/19 Pramipexole Di-HCl [Mirapex] 0.25 mg PO BID PRN PRN 08/19/19 Sertraline HCl [Zoloft] 50 mg PO DAILY 08/19/19 Sucralfate [Carafate] 1 tab PO BIDCM PRN 08/19/19 Aspirin E.C. [Ecotrin] 81 mg PO DAILY@0800 tab 08/21/19 trazodone 50 mg tablet 50 mg PO QHS PRN 12/30/19 Acetaminophen [Tylenol] 650 mg PO Q6H PRN PRN 05/05/20 Ascorbic Acid [Vitamin C] 250 mg PO DAILY 05/05/20 Calcium Carbonate/Vitamin D3 [Calcium 600-Vit D3 200 Tablet] 1 tab PO DAILY 05/05/20 Dextran 70/He-Cell [Tears Naturale, Artificial Tears] 1 drp 4X/DAY PRN PRN 05/05/20 Dicyclomine HCl [Bentyl] 10 mg PO ACHS PRN 05/05/20 Docusate Sodium [Dulcolax Stool Softener] 100 mg PO BID 05/05/20 Fexofenadine HCl [Ratna Allergy] 60 mg PO DAILY 05/05/20 Flaxseed Oil 1,000 mg PO DAILY 05/05/20 Multivit-Min/FA/Lycopen/Lutein [Centrum Silver Tablet] 1 tab PO DAILY 05/05/20 Nitroglycerin SL (ED ONLY) [Nitrostat] 0.4 mg SUBLINGUAL X1 05/05/20 [place]-3 Fatty Acids/Fish Oil [[place] 3 1,000 mg Softgel] 1 ea PO BID 05/05/20 Pantoprazole Sodium [Protonix] 40 mg PO DAILY 05/05/20 Sertraline HCl [Zoloft] 25 mg PO DAILY 05/05/20 Vitamin B Complex [B Complex] 1 tab PO DAILY 05/05/20 traMADol 50 mg PO Q6H PRN PRN 05/05/20 Melatonin 10 mg PO PRN PRN 05/06/20 Metoprolol Tartrate [Lopressor (beta dominic)] 100 mg PO BID #60 tab 05/07/20 amlodipine 2.5 mg tablet 2.5 mg PO DAILY #90 tab 06/01/20 apixaban 2.5 mg tablet 2.5 mg PO BID #60 tab 06/04/20 Furosemide [Lasix] 40 mg PO BID #14 tab 06/06/20 Furosemide [Lasix] 40 mg PO BID #60 tab 06/06/20 Potassium Chloride [K-Dur] 20 meq PO BID #14 tab 06/06/20 Potassium Chloride [K-Dur] 20 meq PO BID #60 tab 06/06/20 Following Prescriptions Were Given to Patient: Potassium Chloride [K-Dur] 20 meq PO BID #60 tab Transmission Status: Received by [facility] Potassium Chloride [K-Dur] 20 meq PO BID #14 tab Transmission Status: Received by [id number] Furosemide [Lasix] 40 mg PO BID #60 tab Transmission Status: Received by [facility] Furosemide [Lasix] 40 mg PO BID #14 tab Transmission Status: Received by [id number] Primary Care Physician: Gladys Pickett MD [Primary Care Provider] - Please follow up with your Primary Care Physician in: 1-2 weeks Please Follow Up With: Kirk Gomes MD When: 2 weeks Disposition: Home Minutes spent on discharge:: 35 Patient Condition:: Stable Medical Necessity - Tobacco Use Smoking Status: Never smoker Meaningful Use Info Meaningful Use Diagnoses (Choose all that apply): CHF - CHF GLORIA/ARB ordered at discharge?: Yes Documented LVEF (%): 65 <Luis Carlos Winter - Last Filed: 06/06/20 15:14> Discharge Date and Diagnosis - Primary Discharge Diagnosis Acute Problems: Active Problems (Last Reviewed 06/05/20 @ 02:[address] Lopez Caceres MD) Acute congestive heart failure (Acute) Bilateral pleural effusion (Acute) Hypoxemia (Acute) Weakness (Acute) Shortness of breath (Acute) - Secondary Discharge Diagnosis Chronic Problems: Chronic Problems (Last Reviewed 06/05/20 @ 02:[address] 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 Data reviewed. I agree with the above note by the physician economist research assistant. The patient is a 84 year old F presents with shortness of breath. Patient was found to be in acute CHF exacerbation with pleural effusions. Patient was diuresed with IV furosemide and has been doing well. Patient has not been on oxygen during this hospitalization. Patient's furosemide was increased from 40 daily to 40 twice daily. Patient be discharged in stable condition with cardiology follow-up. [] - Physical Exam Vitals/I&O's: Vital Signs Temp Pulse Resp BP Pulse Ox 36.8 C 68 15 115/57 L 93 06/06/20 13:59 06/06/20 13:59 06/06/20 13:59 06/06/20 13:59 06/06/20 13:59 Oxygen Flow Rate (L/min) 2 Oxygen Delivery Method Room Air Weight: 65.3 kg Body Mass Index (BMI) 26.1 Intake and Output for Last 24 Hours 06/04/20 06/05/20 06/06/20 23:59 23:59 23:59 Intake Total 640 / 880 440 / 440 Output Total 4500 / 5100 1250 / 1250 Balance -3860 / -4220 -810 / -810 General: Alert, Cooperative HEENT: Atraumatic, Normocephalic Lungs: Clear to auscultation, Normal air movement Cardiovascular: Regular rate, No murmurs Abdomen: Bowel Sounds Present, Soft, Non Tender, Non-Distended Extremities: No edema, No Calf Tenderness Skin: No rashes, No breakdown Musculoskeletal: No Tenderness to Palpation of Joints or Extremities Psych/Mental Status: Normal Affect, Appropriate Microbiology Past 72 Hours 06/04/20 23:20 Urine, Clean Catch Urine Culture - Preliminary Culture exhibits no growth. 06/04/20 23:02 Mucosa - Nose SARS-CoV-2 Antigen (Rapid) - Final Laboratory Results 06/06/20 07:00: Sodium 134 L, Potassium 3.5, Chloride 96 L, Carbon Dioxide 32.0, Anion Gap 6, BUN 33 H, Creatinine 1.17 H, Estim Creat Clear Calc 30.14, Est GFR (MDRD) Af Amer 57 L, Est GFR (MDRD) Non-Af 47 L, BUN/Creatinine Ratio 28.2 H, Glucose 99, Calcium 9.1 Current Medications Acetaminophen (Acetaminophen 325 Mg Tablet) 650 mg PO Q6H PRN PRN PRN Reason: Pain Score 1-10/Temp > 100.7 F Amlodipine Besylate (Amlodipine 2.5 Mg Tablet) 2.5 mg PO DAILY [facility] Last Admin: 06/06/20 09:02 Dose: 2.5 mg Documented by: Apixaban (Apixaban 2.5 Mg Tablet) 2.5 mg PO BID [facility] Last Admin: 06/06/20 09:04 Dose: 2.5 mg Documented by: Ascorbic Acid (Ascorbic Acid 500 Mg Tablet) 250 mg PO DAILY [facility] Last Admin: 06/06/20 09:02 Dose: 250 mg Documented by: Aspirin (Aspirin E.C. 81 Mg Tablet) 81 mg PO DAILY@0800 [facility] Last Admin: 06/06/20 09:00 Dose: 81 mg Documented by: Atorvastatin Calcium (Atorvastatin Calcium 40 Mg Tablet) 40 mg PO DAILY@2200 [facility] Last Admin: 06/05/20 21:15 Dose: 40 mg Documented by: Calcium/Vitamin D (Calcium Carb/Vitamin D 1 Tablet Tablet) 1 tablet PO DAILY [facility] Last Admin: 06/06/20 09:02 Dose: 1 tablet Documented by: Clopidogrel Bisulfate (Clopidogrel Bisulfate 75 Mg Tablet) 75 mg PO DAILY [facility] Last Admin: 06/06/20 09:02 Dose: 75 mg Documented by: Dicyclomine HCl (Dicyclomine 10 Mg Capsule) 10 mg PO ACHS PRN PRN Reason: cramps Docusate Sodium (Docusate Sodium 100 Mg Capsule) 100 mg PO BID [facility] Last Admin: 06/06/20 08:59 Dose: 100 mg Documented by: Furosemide (Furosemide 40 Mg/4 Ml Vial) 40 mg IV BID@1000,1800 [facility] Last Admin: 06/06/20 09:01 Dose: 40 mg Documented by: Gabapentin (Gabapentin 600 Mg Tablet) 600 mg PO LUNCH [facility] Last Admin: 06/06/20 12:24 Dose: 600 mg Documented by: Gabapentin (Gabapentin 600 Mg Tablet) 600 mg PO QHS [facility] Last Admin: 06/05/20 21:16 Dose: 600 mg Documented by: Loratadine (Loratadine 10 Mg Tablet) 5 mg PO DAILY [facility] Last Admin: 06/06/20 09:03 Dose: 5 mg Documented by: Losartan Potassium (Losartan Potassium 50 Mg Tablet) 50 mg PO BID [facility] Last Admin: 06/06/20 09:04 Dose: 50 mg Documented by: Metoprolol Tartrate (Metoprolol Tartrate 100 Mg Tablet) 100 mg PO BID [facility] Last Admin: 06/06/20 09:00 Dose: 100 mg Documented by: Metoprolol Tartrate (Metoprolol Tartrate 5 Mg/5 Ml Vial) 5 mg IV Q1H PRN PRN PRN Reason: Heart rate of more than 110 Last Admin: 06/05/20 23:17 Dose: 5 mg Documented by: Multivitamins (Vitamin B Comp W-C Capsule) 1 capsule PO DAILY [facility] Last Admin: 06/06/20 09:00 Dose: 1 capsule Documented by: Multivitamins/Minerals (Multivitamins,Ther W-Minerals Tablet) [facility] Last Admin: 06/06/20 09:02 Dose: 1 tablet Documented by: [id number] Ethyl Esters ([place]-3 Acid Ethyl Esters 1 Gm Capsule) 1 gm PO BID [facility] Last Admin: 06/06/20 09:00 Dose: 1 gm Documented by: Ondansetron HCl (Ondansetron 4 Mg/2 Ml Vial) 4 mg IV Q8H PRN PRN PRN Reason: NAUSEA/VOMITING Pantoprazole Sodium (Pantoprazole Sodium 40 Mg Tablet) 40 mg PO DAILY [facility] Last Admin: 06/06/20 09:02 Dose: 40 mg Documented by: Potassium Chloride (Potassium Chloride 20 Meq Tablet) [facility] Last Admin: 06/06/20 08:59 Dose: 20 meq Documented by: Pramipexole Dihydrochloride (Pramipexole Di-Hcl 0.25 Mg Tablet) 0.25 mg PO BID PRN PRN PRN Reason: SCIATICA Sertraline HCl (Sertraline 50 Mg Tablet) 75 mg PO DAILY [facility] Last Admin: 06/06/20 09:01 Dose: 75 mg Documented by: Sodium Chloride (0.9% Saline Lock 10 Ml Syringe) 10 - 40 ml IV UD PRN PRN Reason: SALINE FLUSH Last Admin: 06/06/20 09:01 Dose: 10 ml Documented by: Sucralfate (Sucralfate 1 Gm Tablet) 1 gm PO BID@0700,1600 PRN PRN Reason: GERD Tramadol HCl (Tramadol 50 Mg Tablet) 50 mg PO Q6H PRN PRN PRN Reason: Pain Score 1-10 Zolpidem Tartrate (Zolpidem Tartrate 5 Mg Tablet) 5 mg PO QHS PRN PRN PRN Reason: INSOMNIA Last Admin: 06/05/20 21:20 Dose: 5 mg Documented by: Discharge Diet: Low fat/ Low Cholesterol, 2000 mg Sodium Diet Discharge Activity: Return to Normal Activity Disposition: Home Minutes spent on discharge:: 35 Patient Condition:: Stable Medical Necessity - Tobacco Use Smoking Status: Never smoker Meaningful Use Info Meaningful Use Diagnoses (Choose all that apply): CHF - CHF GLORIA/ARB ordered at discharge?: Yes Documented LVEF (%): 65 Inpatient E&M: 70947 Disch Hosp
--- NOTE | 2020-06-06 15:36 | NURSING ---
This RN spoke with Ciera and reviewed discharge instructions. Per Ciera, patient expressed a desire to obtain a medical alert device. This RN spoke with SW regarding same and RN provided with a pamphlet for same. This RN gave pamphlet to the patient and discussed instructions for same. Patient voiced understanding of same.
--- NOTE | 2020-06-09 11:19 | CASEMGMT ---
NICOLE RODRIGUEZ Discharge F/U Phone Call LACE: 10 Strata: 3 Discharge date: Call date: 06/09/20 Call time: 1120 Admission dx: Acute exacerbation of HF w/ preserved EF Pt states has been doing 'pretty good' since discharge. Pt states no questions regarding discharge instructions or medications at this time. Pt states has f/u with PCP on 07/08/20 and plans to keep. Pt states no suggestions for [facility] at this time and states 'Everyone was so nice and I was very pleased with my care.' Pt voices no further questions/concerns/needs at this time and thanks this RN MICHAEL for the call. [place] NICOLE RODRIGUEZ
== END 2020-06-06 16:02 | disposition home or self-care (01) | DRG 293 ==
LOC: ED 06-05 00:44 → PCU 06-05 01:09
PROVIDERS: Admitting Provider Hospitalist; Emergency Provider Emergency Medicine; PCP Internal Medicine
DX: I11.0 Hypertensive heart disease with heart failure (principal); I50.33 Acute on chronic diastolic (congestive) heart failure; I27.20 Pulmonary hypertension, unspecified; R09.02 Hypoxemia; I48.0 Paroxysmal atrial fibrillation; I25.10 Atherosclerotic heart disease of native coronary artery without angina pectoris; E78.5 Hyperlipidemia, unspecified; G89.29 Other chronic pain; G47.00 Insomnia, unspecified; G47.33 Obstructive sleep apnea (adult) (pediatric); K21.9 Gastro-esophageal reflux disease without esophagitis; Z20.822 Contact with and (suspected) exposure to COVID-19; Z79.01 Long term (current) use of anticoagulants; Z79.02 Long term (current) use of antithrombotics/antiplatelets; Z79.82 Long term (current) use of aspirin; Z79.899 Other long term (current) drug therapy; I25.2 Old myocardial infarction; Z95.5 Presence of coronary angioplasty implant and graft
CPT/HCPCS: 36415; 71045; 71275; 80048; 80053; 81001; 83605; 83880; 84484; 85025; 85610; 85730; 87040; 87086; 87426; 93005; 94640; 97162; 97166; 99285; Q9967; A4216; J1940

== ENCOUNTER → 2020-07-01 | Outpatient (CLI) | payer MEDICARE, SELFPAY ==
[2019-12-09 08:37] VITALS: BMI 24.3
[2020-06-05 02:16] VITALS: BMI 26.1
[2020-07-01 09:43] LABS: Hematocrit 39.1 % (37-47); Hemoglobin 11.8 g/dL (12.0-15.0); Mean Corp Hgb Conc 30.2 g/dL (32-36); Mean Corpuscular Hgb 30.3 pg (27.0-32.0); Mean Corpuscular Volume 100.3 fL (81-99); Platelet Count 236 K/mm3 (150-450); RBC Distribution Width SD 60.5 fl (35.1-43.9); White Blood Count 8.6 K/mm3 (4.4-11.0)
[2020-07-01 10:09] LABS: AST(SGOT) 43 U/L (15-37); Alanine Aminotransfer ALT/SGPT 66 U/L (13-56); Cholesterol 126 mg/dL (200); High Density Lipoprotein 28 mg/dL; Magnesium 2.2 mg/dL (1.6-2.6); Triglycerides 178 mg/dL; Very Low Density Lipoprotein 36 mg/dL (5-40)
== END | disposition home or self-care (01) ==
LOC: LABSPEC 08:26
PROVIDERS: PCP Internal Medicine; Visit Provider Internal Medicine
DX: E78.2 Mixed hyperlipidemia (principal); Z79.899 Other long term (current) drug therapy
CPT/HCPCS: 36415; 80061; 83735; 84443; 84450; 84460; 85027

== ENCOUNTER 2020-07-09 09:56 | Day surgery (SDC) | payer MEDICARE, SELFPAY ==
[2019-12-09 08:37] VITALS: BMI 24.3
[2020-07-08 10:28] VITALS: BMI 26.4
[2020-07-08 13:38] VITALS: BMI 26.4
--- NOTE | 2020-07-09 03:38 | HP_ITS ---
HPI HPI History of Present Illness Surgical H&P: Yes Details: This is an 85-year-old white female who presents today for outpatient cardiovascular follow-up. August 20, 2019 She presented to [facility] with a non-ST segment elevation [place] with history of CAD, status post previous LAD PTCA/PCI- remote, paroxysmal atrial fibrillation, hyperlipidemia, and hypertension. Patient was hospitalized in May of 2020 for Afib with RVR. Patient was hospitalized in June 2020 for acute congestive heart failure, bilateral pleural effusions. She was treated with IV Lasix. Pt complains of aching from head to toe with walking. She does feel that she is SOB on some days. She does not have any chest pain. She does not have any orthopnea. She does not have any palpitations. She does occasionally have lightheadedness. She does not have any edema. Overall her weight has been stable. She feels that over the last few weeks that her symptoms have worsened and she just does not feel very good. EKG today demonstrated Afib with a HR of 118. Logs have demonstrated an elevated HR since 06/25. There was some concern about her amiodarone, she is on this. It was not on her list. Intake Vital Signs 07/08/20 Height 5 ft 3 in 07/08/20 Weight: 149 lb 07/08/20 BMI 26.4 07/08/20 BP 121/82 H 07/08/20 Blood Pressure Location Lt brachial 07/08/20 Position Sitting 07/08/20 Respiration 22 H 07/08/20 Pulse 97 07/08/20 Pulse Source Monitor 07/08/20 Pulse Oximetry (%) 96 Intake Visit Reasons: 6 M Perioperative Manager Required: No Accompanied by: None Is patient in pain?: No Allergies meperidine [From Demerol] Adverse Reaction (Verified 07/08/20 10:26) Nausea Medications Atorvastatin Calcium 40 mg PO DAILY 08/19/19 [History Confirmed 07/08/20] Clopidogrel Bisulfate [Clopidogrel] 75 mg PO DAILY 08/19/19 [History Confirmed 07/08/20] Gabapentin [Neurontin] 600 mg PO LUNCH 08/19/19 [History Confirmed 07/08/20] Gabapentin [Neurontin] 600 mg PO QHS 08/19/19 [History Confirmed 07/08/20] Losartan Potassium 50 mg PO BID 08/19/19 [History Confirmed 07/08/20] Pramipexole Di-HCl [Mirapex] 0.25 mg PO BID PRN PRN 08/19/19 [History Confirmed 07/08/20] Sertraline HCl [Zoloft] 50 mg PO DAILY 08/19/19 [History Confirmed 06/04/20] Sucralfate [Carafate] 1 tab PO BIDCM PRN 08/19/19 [History Confirmed 07/08/20] Aspirin E.C. [Ecotrin] 81 mg PO DAILY@0800 tab 08/21/19 [Rx Confirmed 07/08/20] trazodone 50 mg tablet 50 mg PO QHS PRN 12/30/19 [History Confirmed 07/08/20] Acetaminophen [Tylenol] 650 mg PO Q6H PRN PRN 05/05/20 [History Confirmed 07/08/20] Ascorbic Acid [Vitamin C] 250 mg PO DAILY 05/05/20 [History Confirmed 07/08/20] Calcium Carbonate/Vitamin D3 [Calcium 600-Vit D3 200 Tablet] 1 tab PO DAILY 05/05/20 [History Confirmed 07/08/20] Dextran 70/He-Cell [Tears Naturale, Artificial Tears] 1 drp 4X/DAY PRN PRN 05/05/20 [History Confirmed 07/08/20] Dicyclomine HCl [Bentyl] 10 mg PO ACHS PRN 05/05/20 [History Confirmed 07/08/20] Docusate Sodium [Dulcolax Stool Softener] 100 mg PO BID 05/05/20 [History Confirmed 07/08/20] Fexofenadine HCl [Ratna Allergy] 60 mg PO DAILY 05/05/20 [History Confirmed 07/08/20] Flaxseed Oil 1,000 mg PO DAILY 05/05/20 [History Confirmed 07/08/20] Multivit-Min/FA/Lycopen/Lutein [Centrum Silver Tablet] 1 tab PO DAILY 05/05/20 [History Confirmed 07/08/20] Nitroglycerin SL (ED ONLY) [Nitrostat] 0.4 mg SUBLINGUAL X1 05/05/20 [History Confirmed 07/08/20] [place]-3 Fatty Acids/Fish Oil [[place] 3 1,000 mg Softgel] 1 ea PO BID 05/05/20 [History Confirmed 07/08/20] Pantoprazole Sodium [Protonix] 40 mg PO DAILY 05/05/20 [History Confirmed 07/08/20] Sertraline HCl [Zoloft] 25 mg PO DAILY 05/05/20 [History Confirmed 07/08/20] Vitamin B Complex [B Complex] 1 tab PO DAILY 05/05/20 [History Confirmed 06/04/20] traMADol 50 mg PO Q6H PRN PRN 05/05/20 [History Confirmed 06/04/20] Melatonin 10 mg PO PRN PRN 05/06/20 [History Confirmed 07/08/20] Metoprolol Tartrate [Lopressor (beta dominic)] 100 mg PO BID #60 tab 05/07/20 [Rx Confirmed 07/08/20] amlodipine 2.5 mg tablet 2.5 mg PO DAILY #90 tab 06/01/20 [Rx Confirmed 07/08/20] Furosemide [Lasix] 40 mg PO BID #14 tab 06/06/20 [Rx Confirmed 07/08/20] apixaban 2.5 mg tablet 2.5 mg PO BID #180 tab 07/01/20 [Rx Confirmed 07/08/20] furosemide 40 mg tablet 40 mg PO BID #180 tab 07/01/20 [Rx Confirmed 07/08/20] potassium chloride 20 mEq tablet,extended release(part/cryst) 20 meq PO BID #180 tab 07/01/20 [Rx Confirmed 07/08/20] amiodarone 200 mg tablet 200 mg PO DAILY 07/08/20 [History Confirmed 07/08/20] isosorbide mononitrate 60 mg tablet,extended release 24 hr 60 mg PO DAILY 07/08/20 [History Confirmed 07/08/20] [facility] 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) Edema (Inactive) Weakness (Acute) Shortness of breath (Acute) Pure hypercholesterolemia (Chronic) ALVERTO on CPAP (Chronic) Essential hypertension (Chronic) Atherosclerotic heart disease of [place] coronary artery without angina pectoris (Chronic) Presence of stent in coronary artery (Chronic ~08/20/19) Atrial fibrillation status post cardioversion (Chronic) NSTEMI (non-ST elevated myocardial infarction) (Resolved) CAD (coronary artery disease) (Chronic) Hypokalemia (Resolved) HTN (hypertension) (Inactive) Hyperlipidemia (Inactive) Surgical History Presence of coronary angioplasty implant and graft (Chronic ~08/20/19) History of appendectomy (Resolved) History of carpal tunnel surgery (Resolved) History of left breast biopsy (Resolved) History of total hysterectomy (Resolved) S/P PTCA (percutaneous transluminal coronary angioplasty) (Inactive) Family History Father Heart disease Brother Diabetes Mother COPD (chronic obstructive pulmonary disease) Grandfather Heart disease Social History (Updated 07/08/20 @ 13:06 by Fabi WALSH, PA) Smoking Status: Never smoker ROS Const Const: Positive for fatigue, weakness and headache(s); negative for fever(s) Eyes Eyes: Negative for blind spots, loss of peripheral vision or transient loss of vision ENT ENT: Positive for headache(s) and dizziness; negative for tinnitus or Nosebleed/epistaxis Cardio Chest Pain: No Palpitations: No Edema: None Muscle aches with walking: None Resp Respiratory: Positive for SOB with activity; negative for SOB at rest, SOB orthopnea\SOB lying down or Cough GI GI: Negative nausea, vomiting, heartburn or vomiting blood/hematemesis : Negative for hematuria Musc Musc: Negative for muscle aches/ myalgia Neuro Neuro: Positive for dizziness, lightheadedness, headache(s) and weakness; negative for near syncope, syncope or orthostatic symptoms Rajesh Hematologic/Lymphatic: Negative for easy bleeding Endo Endo: Positive for fatigue Cardiology Exam Const Appearance: cooperative, no acute distress, well developed and frail appearing Orientation: alert, awake and oriented x3 Head Head: normocephalic and atraumatic Mouth: moist mucous membranes Eyes General: appearance normal, both eyes and all related structures Conjunctivae: conjunctivae normal Pupils: PERRL EOM: EOM intact bilaterally Neck Neck: normal visual inspection, no lymphadenopathy and no JVD Carotids: Negative bruit Neck Mass: Negative Neck mass Chest Chest inspection: normal inspection of the chest and symmetric chest movement Auscultation: Bilateral: Clear to Auscultation Cardio Palpation: normal PMI Rate: tachycardic Rhythm: irregularly irregular Heart sounds: S1 normal and S2 normal; negative rub, gallop or murmur GI GI: normal to inspection, soft, no hepatosplenomegaly and bowel sounds present; negative tender Neuro General: alert, awake, oriented x3, CN's II-XI intact bilaterally and moves all extremities Extremities Pulses: Normal: Right Posterior Tibial Pulse, Left Posterior Tibial Pulse, Right Radial Pulse, Left Radial Pulse Lower Extremity Edema: None: Bilateral Psych Psychological: normal affect Assessment & Plan 1. Acute congestive heart failure I50.9 Plan Feel that patient is still having symptoms of congestive heart failure with her atrial fib with RVR. She will continue with her current dose of diuretics. We will monitor her kidney function closely. 2. Longstanding persistent atrial fibrillation I48.11 Plan Patient is symptomatic with her atrial fibrillation. Rate is not controlled on her amiodarone, beta-dominic and anticoagulation. Patient is scheduled for a cardioversion tomorrow instructions were given to her. Patient Instructions I will try to schedule you for a cardioversion tomorrow- you will likely arrive at 1030 and your procedure will be at noon. 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 Orders Orders: Cardioversion Today 3. Atherosclerosis of [place] coronary artery of [place] heart without angina pectoris I25.10 Plan Patient does not have any symptoms of angina. She will continue with her aspirin, after her statin, Plavix metoprolol and isosorbide. She is also on isosorbide. 4. Essential hypertension I10 Plan Blood pressure is well controlled on current medications, we do not recommend any changes at this time. 5. Pure hypercholesterolemia E78.00 Plan Patient will continue with moderate intensity statin. Plan Detail Other Orders Orders: 12 Lead EKG performed by BMS Today I48.91 Additional Comments This patient was reviewed with Dr. Gomes. Follow Up 6 Weeks (6-9 weeks MMM) Coding Level of Care Code Off vis,est,level 4 Diagnoses Acute congestive heart failure I50.9 Longstanding persistent atrial fibrillation I48.11 Atherosclerosis of [place] coronary artery of [place] heart without angina pectoris I25.10 Essential hypertension I10 Pure hypercholesterolemia E78.00 Coding Level of Care Code Off vis,est,level 4 Diagnoses Acute congestive heart failure I50.9 Longstanding persistent atrial fibrillation I48.11 Atherosclerosis of [place] coronary artery of [place] heart without angina pectoris I25.10 Essential hypertension I10 Pure hypercholesterolemia E78.00 Supplemental Info Supplemental Information Echocardiogram: 08/20/2019 Interpretation Summary The study was technically difficult. Segmental dysfunction with preserved ejection fraction (see wall motion). The estimated ejection fraction is 65 %. The left atrium is mildly enlarged. There is mild mitral annular calcification. Extension of the mitral annular calcification onto the base of the posterior mitral valve leaflert. Mild focal mitral valve calcification of the anterior leaflet. Moderate (2+) mitral valve insufficiency. Mild to moderate (1-2+) tricuspid valve insufficiency. Trivial pulmonic valve insufficiency. Right ventricular systolic pressure estimated to be 55 mmHg. Transmitral diastolic flow velocities suggest diastolic dysfunction (pseudonormal pattern). Echocardiogram 05/2020: Left ventricular systolic function is normal. The estimated ejection fraction is 65 %. The left atrium is mildly enlarged. There is mild mitral annular calcification. Extension of the mitral annular calcification onto the base of the posterior mitral valve leaflet. Mild (1+) mitral valve insufficiency. Mild to moderate (1-2+) tricuspid valve insufficiency. Right ventricular systolic pressure estimated to be 35 mmHg. Unable to assess diastolic dysfunction. She did have previous diagnostic cardiac catheterization performed at [facility] on 01-15-2009. At that time her left ventricle had an LVEF of 55% with apical left ventricular akinesis, the left main coronary artery was patent, the LAD was noted to have 70% stenosis, the first diagonal branch had 50% stenosis, the second diagonal branch had 50% stenosis, the third diagonal branch had 50% stenosis, the LCx had 10% stenosis, the RCA was small in diameter with 70% stenosis. She subsequently underwent LAD PCI. Cardiac cath: 08/20/2019 CONCLUSIONS Elevated Left Ventricular End Diastolic Pressure Segmented LV systolic dysfunction- Mild LVEF: by LV gram 70 % [place] Multivessel CAD RECOMMENDATIONS Risk factor modification Medical therapy Referred for immediate PCI DESCRIPTION OF PROCEDURE The patient arrived to the procedure lab. The risks and benefits of the procedure as well as a full description of our services here and current unavailability of surgical backup were fully explained to the patient and/or their significant other prior to the catheterization. The Timeout was completed, verifying the correct patient and procedure. The patient's procedural site was prepped and draped in the usual fashion. Local anesthetic was given subcutaneously to right radial region with Lidocaine 2%. Using a modified Seldinger technique, arterial access was obtained via the right radial artery, a 6Fr sheath was inserted. Left Coronary Artery selective angiography was performed in multiple views using a 5 Fr. 4.0 [place] catheter. Right Coronary Artery selective angiography was then performed in multiple views using a 5 Fr. 4.0 [place] catheter. Left Ventriculography was performed in AGUILAR projection using a 5 Fr. Pigtail catheter. LV to AO pullback pressures were then recorded.The arterial sheath was pulled and a TR Band was applied for hemostasis-12cc CORONARY ANGIOGRAPHY DOMINANCE: Left Dominant LEFT HEART ASSESSMENT Left Ventricular Ejection Fraction: by LV Gram 70 % Inferior Apical Akinesis Elevated Left Ventricular End Diastolic Pressure LVEDP: 21 mmHg LEFT MAIN: Mild luminal irregularities LEFT ANTERIOR DESCENDING ARTERY: PROX LAD: Mild luminal irregularities, 25 % Stenosis MID LAD: Previously placed stent is patent with mild luminal irregularities, 25 % Stenosis DIAGONAL 1: Proximal - 75 % Stenosis (small caliber vessel) DIAGONAL 2: Proximal - 25 % Stenosis (small caliber vessel) DIAGONAL 3: Proximal - 25 % Stenosis (small caliber vessel) CIRCUMFLEX ARTERY: OSTIAL CIRC: 85 % Stenosis PROX CIRC: Mild calcification OM 1: Proximal - Mild luminal irregularities (small caliber vessel) OM 2: Mid - diffuse: 25 % Stenosis RIGHT CORONARY ARTERY: PROX RCA: 75 % Stenosis MID RCA: 50 % Stenosis AORTIC ROOT: Angiographically normal PCI: 08/20/2019 CONCLUSIONS Successful PTCA/LIZBETH to oLCx Labs LDL Cholesterol 62 mg/dL (0-130) 07/01/20 HDL Cholesterol 28 mg/dL (40-) L 07/01/20 Triglycerides 178 mg/dL (-199) 07/01/20 VLDL Cholesterol 36 mg/dL (5-40) 07/01/20 Diagnostics Electrocardiogram 07/08/20 Chest X-Ray 06/04/20 COVID (Procedure Consent) Procedure Criteria Procedure Criteria: Yes Elective The surgeon/proceduralist and patient have discussed in detail the risk of exposure to and/or potential harm posed by the COVID-19 virus with having a surgery/procedure at this time versus the risk of? delaying the surgery/procedure. It is not possible to know either the risk of delaying the surgery or procedure or chance of getting an infection with perfect accuracy, but a joint decision was made between the patient and the surgeon/proceduralist ?to proceed at this time with the scheduled surgery/procedure as indicated on the consent form. I have re-examined the patient. There are no clinical changes since date of exam.
--- NOTE | 2020-07-09 13:05 | PRO.PCM_ITS ---
Procedure Report Date of Procedure: 07/09/20 CONSCIOUS SEDATION REPORT DATE OF SERVICE: July 09, 2020 BRIEF HISTORY OF PRESENT ILLNESS: The patient is an 84-year-old female who presented to [facility] for an elective outpatient cardioversion due to underlying atrial fibrillation. The patient has never previously undergone a prior cardioversion. Her last surface echocardiogram revealed an ejection fraction of approximately 65%. She is currently anticoagulated on Eliquis. She does have a known history of obstructive sleep apnea, for which she utilizes nocturnal CPAP therapy. She denies any prior anesthetic complications. PHYSICAL EXAMINATION: VITAL SIGNS: Reviewed and were acceptable. GENERAL: The patient is a female, in no apparent distress, speaking in full sentences. HEENT: Normocephalic, atraumatic. Joe membranes are moist and pink. Good mouth opening noted. Trachea is midline. Good neck mobility. CHEST: S1, S2 irregularly irregular. No murmurs, rubs or gallops were noted. LUNGS: Clear to auscultation bilaterally without appreciable wheezes, rales or rhonchi. ABDOMEN: Soft, nontender, nondistended. Positive bowel sounds. EXTREMITIES: There is no clubbing, cyanosis or edema. ASA Class: II DESCRIPTION OF PROCEDURE: After confirmation of informed consent, the patient's anesthesia plan was reviewed in detail. Propofol was chosen. Risks and benefits were reviewed and the patient agreed to proceed. At 1234, the patient was given 40 mg of propofol. The patient achieved an appropriate level of sedation and was given a 200 joule synchronized cardioversion by Dr. Gomes at the bedside. This was successful in achieving normal sinus rhythm. The patient was monitored until 1248, at which time she reached her baseline mental status and function. The patient tolerated the procedure well. COMPLICATIONS: None ESTIMATED BLOOD LOSS: None RECOMMENDATIONS: Okay to recover in usual fashion. [id number]: Other Procedure See Report - [id number]
--- NOTE | 2020-07-09 13:46 | CARDIOVERS ---
Cardioversion Cardioversion: Date: 07-09-2020 Procedure: Synchronized Biphasic DC Cardioversion Indications: Atrial fibrillation with RVR Consent: Per the Patient Anesthesia: per Dr. Mcmahan of pulmonology and critical care medicine with propofol 40 mg IV push total Procedure: Synchronized Biphasic DC Cardioversion: 200 J x 1: Result: Sinus rhythm Complications: no apparent complications This note was generated with Liquiteriaation software. It may contain incorrect words, spelling, and punctuation that were not noted in checking the note before signing.
== END 2020-07-09 15:04 | disposition home or self-care (01) ==
LOC: CLSP 09:57
PROVIDERS: PCP Internal Medicine; Referring Provider Internal Medicine Cardiovascular Disease; Visit Provider Internal Medicine Cardiovascular Disease
DX: I48.11 Longstanding persistent atrial fibrillation (principal); I11.0 Hypertensive heart disease with heart failure; I50.9 Heart failure, unspecified; I25.10 Atherosclerotic heart disease of native coronary artery without angina pectoris; E78.5 Hyperlipidemia, unspecified; G47.33 Obstructive sleep apnea (adult) (pediatric); Z79.82 Long term (current) use of aspirin; Z79.01 Long term (current) use of anticoagulants; Z79.899 Other long term (current) drug therapy; I25.2 Old myocardial infarction; Z95.5 Presence of coronary angioplasty implant and graft
CPT/HCPCS: 92960; 93005; J7040

== ENCOUNTER → 2020-07-16 11:09 | Outpatient (CLI) | payer MEDICARE, SELFPAY ==
[2019-12-09 08:37] VITALS: BMI 24.3
[2020-07-08 13:38] VITALS: BMI 26.4
--- NOTE | 2020-07-16 11:20 | RAD_ITS ---
STUDY: X-RAY CHEST REASON FOR EXAM: Female, 84 years old. SOB TECHNIQUE: PA and lateral views of the chest. COMPARISON: 06/24/2020 FINDINGS: The lungs are clear and expanded. There is no demonstrated pleural abnormality. Normal size heart. Normal mediastinum and yolanda. Normal visualized pulmonary arteries. Normal visualized aortic arch and descending thoracic aorta. Normal visualized thoracic spine. Normal visualized ribs, clavicles, and shoulders. There is no demonstrated abnormality of the visualized soft tissue structures of the upper abdomen. RAD/Chest PA and Lateral IMPRESSION: Normal x-ray examination of the chest. Electronically Signed: Luiz Tanner MD at 16:53 EDT Tel , Service support ,
[2020-07-16 12:52] LABS: Absolute Lymphocyte Count 1.47 X10^3/uL (0.83-4.51); Absolute Neutrophil Count 3.8 X10^3/uL (2.0-7.7); Basophil# 0.01 X10^3/uL; Basophil% 0.2 % (0-1); Eosinophil# 0.16 X10^3/uL; Eosinophils% 2.7 % (0-5); Hemoglobin 13.5 g/dL (12.0-15.0); Lymphocyte # 1.47 X10^3/ul (4.0); Lymphocyte % 25.1 % (19-41); Mean Corp Hgb Conc 30.7 g/dL (32-36); Mean Corpuscular Hgb 30.8 pg (27.0-32.0); Mean Corpuscular Volume 100.5 fL (81-99); Mean Platelet Vol. 9.3 fl (6.2-12.0); Monocyte# 0.37 X10^3/uL; Monocyte% 6.3 % (0-10); NRBC Flagged by Analyzer 0 % (0-5); Neutrophil # 3.83 X10^3/uL (2.7-7.7); Neutrophil % 65.4 % (47-70); Platelet Count 273 K/mm3 (150-450); RBC Distribution Width CV 16.5 % (11.6-14.6); RBC Distribution Width SD 61.1 fl (35.1-43.9); Red Blood Count 4.38 M/mm3 (4.2-5.4); White Blood Count 5.9 K/mm3 (4.4-11.0)
[2020-07-16 13:15] LABS: BNP,B-Type NATRIURETIC PEPTIDE 546.5 pg/mL (0-100)
[2020-07-16 13:26] LABS: Anion Gap 5 (5-15); BUN 25 mg/dL (7-18); BUN/Creat Ratio 19.7 RATIO (10-20); Calcium,Total 9.1 mg/dL (8.5-10.1); Chloride 100 mmol/L (98-107); Creatinine, Serum 1.27 mg/dL (0.55-1.02); EST Glomerular Filtration Rate 43 mL/min (>60); Est Glom Filt Rate - Afr Amer 52 mL/min (>60); Glucose 94 mg/dL (74-106); Potassium 4.1 mmol/L (3.5-5.1); Sodium Level 138 mmol/L (136-145); T4 Free Direct 0.46 ng/dL (0.76-1.46)
== END ==
PROVIDERS: PCP Internal Medicine; Referring Provider Nurse Practitioner Family; Visit Provider Nurse Practitioner Family
DX: I48.0 Paroxysmal atrial fibrillation (principal); R06.00 Dyspnea, unspecified; Z95.5 Presence of coronary angioplasty implant and graft; I10 Essential (primary) hypertension; J90 Pleural effusion, not elsewhere classified
CPT/HCPCS: 36415; 71046; 80048; 83880; 84439; 84443; 85025

== ENCOUNTER → 2020-08-04 10:11 | Outpatient (CLI) | payer MEDICARE, SELFPAY ==
[2019-12-09 08:37] VITALS: BMI 24.3
[2020-07-08 13:38] VITALS: BMI 26.4
== END ==
PROVIDERS: PCP Internal Medicine; Visit Provider Nurse Practitioner Family
DX: I48.0 Paroxysmal atrial fibrillation (principal); R06.00 Dyspnea, unspecified; I10 Essential (primary) hypertension; J90 Pleural effusion, not elsewhere classified; Z95.5 Presence of coronary angioplasty implant and graft
CPT/HCPCS: 93225; 93226

== ENCOUNTER 2020-08-17 18:53 | Inpatient (IN) | payer MEDICARE, SELFPAY ==
[2019-12-09 08:37] VITALS: BMI 24.3
[2020-07-08 13:38] VITALS: BMI 26.4
[2020-08-17] VITALS (12 sets, daily range): BP systolic 81–98; BP diastolic 52–80; PULSE 80–136; RESP 12–23; TEMP 36.2–37.1; O2SAT 92–97; BMI 27.6; BMI 27.3
--- NOTE | 2020-08-17 18:57 | CT_ITS ---
EXAMINATION : Head CT w/out contrast HISTORY : Confusion COMPARISON : None. TECHNIQUE : Multiple contiguous axial images were obtained from the skull base to the vertex without intravenous contrast. A radiation dose optimization technique was used for this scan. FINDINGS : There is no evidence for acute intracranial hemorrhage, mass effect, or midline shift. There is no extra-axial fluid collection. There are periventricular white matter changes consistent with chronic microvascular ischemic disease. There is sulcal widening and ventricular enlargement consistent with cerebral atrophy. There is normal valle-white differentiation, without CT evidence of acute ischemia or infarct. The skull base and calvarium are unremarkable. The orbits are unremarkable. Complete opacification of the right maxillary sinus and right sphenoid sinus. The mastoid air cells are well-aerated. The soft tissues are unremarkable. CT/Brain/Head without Contrast IMPRESSION: No acute intracranial abnormality. Chronic involutional and ischemic changes of the brain. Right maxillary and sphenoid sinusitis. Electronically Signed: Jon Luna MD at 20:06 EDT Tel , Service support ,
--- NOTE | 2020-08-17 18:57 | EKG12_ITS ---
Test Reason : HIGH HR Blood Pressure : / mmHG Vent. Rate : 115 BPM Atrial Rate : 153 BPM P-R Int : 000 ms QRS Dur : 088 ms QT Int : 318 ms P-R-T Axes : 000 054 076 degrees QTc Int : 439 ms Atrial fibrillation Low voltage QRS (Limb Leads) Septal infarct , age undetermined Abnormal ECG Confirmed by CRISTOFER SOTO, JUSTINA ([id number]), art editor ADEOLA AVALOS ([id number]) on 08/19/2020 10:06:58 AM Referred By: SARAH BETH Confirmed By:JUSTINA CLEVELAND MD
--- NOTE | 2020-08-17 18:58 | ED.VIS.GEN ---
History of Present Illness Chief Complaint: Weakness Informant: Patient, Supervisor Process Testing Onset: Today Context: Gradual Onset Timing: Continuous Current Severity: Moderate Maximum Severity: Moderate Narrative: Patient is an 84-year-old female with history of coronary vascular disease, atrial fibrillation who is anticoagulated, hypertension, hyperlipidemia who presents to the emergency department with weakness and confusion. Apparently, the patient has been increasingly weak over the past few days. Today, her granddaughter was talking to her on the phone. She thought that she did not sound like herself. The squad actually went to her house to evaluate her. The patient refused transport at that time. Throughout the day, her symptoms have worsened. Family went to check on her and she seemed to be speaking nonsensically. She was not acting appropriately, so she was brought in for further evaluation. On squad arrival, she was in A. fib with RVR. She denies chest pain or shortness of breath. She does admit to being generally weak and having a difficult time getting around. Prior similar symptoms: Yes Recent Illness/Hospitalization: No Past Medical History - Allergies and Home Meds Allergies/Adverse Reactions: Allergies meperidine [From Demerol] Adverse Reaction (Verified 07/08/20 10:26) Nausea Primary Care Physician: Gladys Pickett MD [Primary Care Provider] - Prior records reviewed: Yes Past Medical History: - - Atrial fibrillation, hypertension, hyperlipidemia, coronary vascular disease, diabetes, neuropathy Surgical History: angioplasty - cardiac stent, last placed circa 2006 Smoking Status: Never smoker - Family History Maternal Family History: Family History (Last Reviewed 07/08/20 @ 11:31 by Fabi WALSH, PA) Father Heart disease Brother Diabetes Mother COPD (chronic obstructive pulmonary disease) Grandfather Heart disease Family History: Reports: COPD Paternal Family History: Family History (Last Reviewed 07/08/20 @ 11:31 by Fabi WALSH, PA) Father Heart disease Brother Diabetes Mother COPD (chronic obstructive pulmonary disease) Grandfather Heart disease Family History: Reports: Heart Disease Review of Systems ROS: Unable to Obtain Physical Exam Inital Vital Signs reviewed: Yes General: Well nourished, Well developed, No Acute Distress Head: Normocephalic, Atraumatic Eyes: Perrl, EOMI ENT: Moist mucous membranes, No rhinorrhea Neck: Supple, Nontender Cardiovascular: No murmurs, Irregular, Tachycardia Respiratory: No distress, Chest nontender, Diminished Abdomen: Soft, Nontender, Nondistended, Normal bowel sounds Back: Nontender, Normal Inspection Extremities: Nontender, No edema Skin: Normal color, No rash Neurological: Cranial nerves II-XII grossly intact, Normal Strength, Normal Sensation, Confused, Inattentive Psychological: Normal affect, Normal Mood Diagnostic/Tx/Re-eval Clinical Impression(s) from Imaging Studies Brain CT 08/17/20 18:57 IMPRESSION: No acute intracranial abnormality. Chronic involutional and ischemic changes of the brain. Right maxillary and sphenoid sinusitis. Electronically Signed: Jon Luna MD at 20:06 EDT Tel , Service support , Chest X-Ray 08/17/20 19:00 IMPRESSION: Incomplete expansion of the lungs. Probable atelectasis in the medial posterior left lung base. Electronically Signed: Siddharth Jason MD at 19:42 EDT , Service support , Abdomen/Pelvis CT 08/17/20 19:51 IMPRESSION: 1. Bilateral pleural effusions and atelectasis or infiltrate in the lung bases. 2. Mild ascites. 3. Cholelithiasis. 4. Evaluation of the GI tract is limited, and segments of bowel wall thickening are not excluded. Electronically Signed: Siddharth Jason MD at 20:52 EDT , Service support , Abnormal Lab Results 08/17/20 08/17/20 08/17/20 18:35 18:35 18:35 WBC 9.5 RBC 4.60 Hgb 14.1 Hct 45.0 MCV 97.8 MCH 30.7 MCHC 31.3 L RDW Std Deviation 62.6 H RDW Coeff of Brian 17.4 H Plt Count 276 MPV 9.8 Immature Gran % (Auto) 0.600 Neut % (Auto) 66.1 Lymph % (Auto) 28.5 Menard % (Auto) 4.2 Eos % (Auto) 0.5 Baso % (Auto) 0.1 Absolute Neuts (auto) 6.2 Absolute Lymphs (auto) 2.69 Nucleated RBC % 0 Specimen Type Sample Site pH Bicarbonate Actual Total CO2 Base Excess O2 Saturation O2 % ABG pCO2 ABG pO2 Oscar Test Sodium 127 L Potassium 4.3 Chloride 91 L Carbon Dioxide 27.0 Anion Gap 9 BUN 61 H Creatinine 1.93 H Estim Creat Clear Calc 18.27 Est GFR (MDRD) Af Amer 32 L Est GFR (MDRD) Non-Af 26 L BUN/Creatinine Ratio 31.6 H Glucose 155 H Calcium 8.7 Total Bilirubin 1.40 H AST 397 H ALT 683 H Alkaline Phosphatase 205 H Troponin I < 0.015 B-Natriuretic Peptide 430.3 H Total Protein 7.3 Albumin 3.7 Globulin 3.6 Albumin/Globulin Ratio 1.0 Lipase Urine Color Urine Clarity Urine pH Ur Specific Fountain Urine Protein Urine Glucose (UA) Urine Ketones Urine Occult Blood Urine Nitrite Urine Bilirubin Urine Urobilinogen Ur Leukocyte Esterase Urine RBC Urine WBC Ur Squamous Epith Cells Urine Bacteria Urine Mucus POC Glucose 08/17/20 08/17/20 08/17/20 18:35 19:05 19:25 WBC RBC Hgb Hct MCV MCH MCHC RDW Std Deviation RDW Coeff of Brian Plt Count MPV Immature Gran % (Auto) Neut % (Auto) Lymph % (Auto) Menard % (Auto) Eos % (Auto) Baso % (Auto) Absolute Neuts (auto) Absolute Lymphs (auto) Nucleated RBC % Specimen Type ART Sample Site R Radial pH 7.41 Bicarbonate Actual 22.9 Total CO2 24 Base Excess -2 O2 Saturation 94 L O2 % 21 ABG pCO2 36.0 ABG pO2 70 L Oscar Test Positive Sodium Potassium Chloride Carbon Dioxide Anion Gap BUN Creatinine Estim Creat Clear Calc Est GFR (MDRD) Af Amer Est GFR (MDRD) Non-Af BUN/Creatinine Ratio Glucose Calcium Total Bilirubin AST ALT Alkaline Phosphatase Troponin I B-Natriuretic Peptide Total Protein Albumin Globulin Albumin/Globulin Ratio Lipase 446 H Urine Color Urine Clarity Urine pH Ur Specific Fountain Urine Protein Urine Glucose (UA) Urine Ketones Urine Occult Blood Urine Nitrite Urine Bilirubin Urine Urobilinogen Ur Leukocyte Esterase Urine RBC Urine WBC Ur Squamous Epith Cells Urine Bacteria Urine Mucus POC Glucose 180 H 04/19/21 19:45 WBC RBC Hgb Hct MCV MCH MCHC RDW Std Deviation RDW Coeff of Brian Plt Count MPV Immature Gran % (Auto) Neut % (Auto) Lymph % (Auto) Menard % (Auto) Eos % (Auto) Baso % (Auto) Absolute Neuts (auto) Absolute Lymphs (auto) Nucleated RBC % Specimen Type Sample Site pH Bicarbonate Actual Total CO2 Base Excess O2 Saturation O2 % ABG pCO2 ABG pO2 Oscar Test Sodium Potassium Chloride Carbon Dioxide Anion Gap BUN Creatinine Estim Creat Clear Calc Est GFR (MDRD) Af Amer Est GFR (MDRD) Non-Af BUN/Creatinine Ratio Glucose Calcium Total Bilirubin AST ALT Alkaline Phosphatase Troponin I B-Natriuretic Peptide Total Protein Albumin Globulin Albumin/Globulin Ratio Lipase Urine Color Yellow Urine Clarity Clear Urine pH 5.0 Ur Specific Fountain 1.015 Urine Protein Negative Urine Glucose (UA) Normal Urine Ketones Negative Urine Occult Blood Negative Urine Nitrite Negative Urine Bilirubin Negative Urine Urobilinogen 1 H Ur Leukocyte Esterase Negative Urine RBC 0 SEEN Urine WBC 0 SEEN Ur Squamous Epith Cells 0-5 SEEN Urine Bacteria 0 SEEN Urine Mucus 0 SEEN POC Glucose - Rhythm Strip Rhythm Strip: A-fib Rate: 120 Ectopy: PAC(s) - EKG Initial EKG Interpretation: Atrial Fibrillation, Non-Specific ST Changes Prior: Unchanged - Medical Decision Making Patient presents with confusion generalized weakness. She has a nonfocal neurologic examination, but does appear to have some delirium. Broad metabolic work-up was pursued. EKG demonstrates atrial fibrillation which patient has a history of. She does have some rapid ventricular response. Patient was sent immediately for noncontrast head CT which is unremarkable for acute process. Chest x-ray reviewed by both myself and the radiologist shows cardiomegaly and scant effusions. The patient was fluid responsive with increase in blood pressure after bolus. I did review her prior echo which showed an EF of 65% so I did feel that fluids would be appropriate. Screening labs show no leukocytosis, however she has evidence of acute kidney injury and marked elevation of her liver functions. She has absolutely no abdominal tenderness. Because of this and her kidney injury, I did obtain noncontrast CT of the abdomen. There is no obstructive process. She does have some gallstones, but no definitive cholecystitis. Again, she has no pain. At this point, the patient's multiple comorbidities and delirium I do feel she is going to require admission. I discussed this with the hospitalist. She is on Eliquis, I do not feel that anyone is going to operate on her tonight so she can safely get right upper quadrant ultrasound on the floor. Patient will be admitted at this time. Impression 1. Delirium 2. Acute kidney injury 3. Elevation of liver functions 4. Atrial fibrillation with rapid ventricular response ED Disposition - Plan for ED Patient: Referrals: Gladys Pickett MD [Primary Care Provider] -
--- NOTE | 2020-08-17 19:00 | RAD_ITS ---
STUDY: X-RAY CHEST REASON FOR EXAM: Female, 84 years old. sob TECHNIQUE: Single AP portable view of the chest. COMPARISON: 07/16/2020. FINDINGS: Moderate lung volumes. There is triangular soft tissue density in the medial left lung base behind the heart which was not present previously, and is most suggestive of atelectasis. No other focal pulmonary opacities are suggested. Cannot exclude small effusions. Normal size heart. Normal mediastinum and yolanda. Normal visualized pulmonary arteries. There is atherosclerotic calcification of the aortic arch with tortuosity. Normal visualized thoracic spine. Normal visualized ribs, clavicles, and shoulders. There is no demonstrated abnormality of the visualized soft tissue structures of the upper abdomen. RAD/Chest 1 View (Portable) IMPRESSION: Incomplete expansion of the lungs. Probable atelectasis in the medial posterior left lung base. Electronically Signed: Siddharth Jason MD at 19:42 EDT , Service support ,
[2020-08-17 19:10] LABS: Bedside Glucose 180 mg/dL (70-110)
[2020-08-17 19:22] LABS: Absolute Lymphocyte Count 2.69 X10^3/uL (0.83-4.51); Absolute Neutrophil Count 6.2 X10^3/uL (2.0-7.7); Basophil# 0.01 X10^3/uL; Basophil% 0.1 % (0-1); Eosinophil# 0.05 X10^3/uL; Eosinophils% 0.5 % (0-5); Hemoglobin 14.1 g/dL (12.0-15.0); Lymphocyte # 2.69 X10^3/ul (0.83-4.51); Lymphocyte % 28.5 % (19-41); Mean Corp Hgb Conc 31.3 g/dL (32-36); Mean Corpuscular Hgb 30.7 pg (27.0-32.0); Mean Corpuscular Volume 97.8 fL (81-99); Mean Platelet Vol. 9.8 fl (6.2-12.0); Monocyte% 4.2 % (0-10); NRBC Flagged by Analyzer 0 % (0-5); Neutrophil # 6.24 X10^3/uL (2.7-7.7); Neutrophil % 66.1 % (47-70); Platelet Count 276 K/mm3 (150-450); RBC Distribution Width CV 17.4 % (11.6-14.6); RBC Distribution Width SD 62.6 fl (35.1-43.9); White Blood Count 9.5 K/mm3 (4.4-11.0)
[2020-08-17 19:31] LABS: Allen Test Positive; Base Excess -2 mmol/L (-2 to +2); Bicarbonate 22.9 mmol/L (22-26); Blood Gas Specimen Type ART; FI02 21; PO2 70 mmHG (75-100); SITE R Radial; SO2 94 % (95-99); Total Carbon Dioxide 24 mmol/L; pH 7.41 (7.35-7.45)
[2020-08-17 19:40] LABS: BNP,B-Type NATRIURETIC PEPTIDE 430.3 pg/mL (0-100)
[2020-08-17 19:42] LABS: AST(SGOT) 397 U/L (15-37); Alanine Aminotransfer ALT/SGPT 683 U/L (13-56); Albumin, Serum 3.7 g/dL (3.2-5.0); Alkaline Phosphatase 205 U/L (45-117); Anion Gap 9 (5-15); BUN 61 mg/dL (7-18); BUN/Creat Ratio 31.6 RATIO (10-20); Calcium,Total 8.7 mg/dL (8.5-10.1); Chloride 91 mmol/L (98-107); Creatinine, Serum 1.93 mg/dL (0.55-1.02); EST Glomerular Filtration Rate 26 mL/min (>60); Est Glom Filt Rate - Afr Amer 32 mL/min (>60); Estimated Creatinine Clearance 18.27 ml/min; Globulin 3.6 g/dL (2.2-4.2); Glucose 155 mg/dL (74-106); Potassium 4.3 mmol/L (3.5-5.1); Protein, Total 7.3 g/dL (6.4-8.2); Sodium Level 127 mmol/L (136-145)
[2020-08-17 19:51] LABS: Bacteria 0 SEEN /hpf (None Seen); Mucous, Urine 0 SEEN /hpf (<or=2+); Red Blood Cells-Urine 0 SEEN /hpf (0-5); White Blood Cells 0 SEEN /hpf (0-5)
--- NOTE | 2020-08-17 19:51 | CT_ITS ---
EXAM: CT ABDOMEN AND PELVIS WITHOUT INTRAVENOUS CONTRAST CLINICAL INDICATION: Abdominal pain TECHNIQUE: Helically acquired images were obtained of the abdomen and pelvis without intravenous contrast. This CT exam was performed using one or more of the following dose reduction techniques: automated exposure control, adjustment of the mA and/or kV according to patient size, and/or use of iterative reconstruction technique. eASIC report generation technology utilized. COMPARISON: None. FINDINGS: LOWER THORAX: Limited views through the lower chest show small to moderate right pleural effusion and small left pleural effusion. There is atelectasis or infiltrate in both lower lobes. Heavily calcified coronary arteries are seen. No cardiomegaly. ABDOMEN: LIVER: Unremarkable. Homogeneous. GALLBLADDER AND BILE DUCTS: There is cholelithiasis. Possible gallbladder wall thickening. No intra- or extrahepatic biliary ductal dilation. PANCREAS: Unremarkable. No focal cystic mass. SPLEEN: Unremarkable. Normal size without focal cystic or solid mass. ADRENALS: Unremarkable. No nodules. KIDNEYS AND URETERS: Unremarkable. Normal renal size and position. No hydronephrosis. STOMACH AND BOWEL: Evaluation of the GI tract is limited by absence of oral contrast. Cannot exclude stomach wall thickening. No dilated loops of bowel or evidence for obstruction. Cannot exclude segmental thickening of the araujo of the small or large bowel. Cannot exclude enteritis or colitis. Moderate diffuse fecal retention. Diverticulosis without definite diverticulitis. PELVIS: APPENDIX: Appendix within normal limits. BLADDER: Unremarkable. REPRODUCTIVE: Unremarkable as visualized. No mass. ABDOMEN and PELVIS: INTRAPERITONEAL SPACE: Ascites is seen around the surface of the liver and there is small amount of fluid in the pelvis. No free air. BONES/JOINTS: Degenerative changes throughout the spine. No suspicious lytic or blastic abnormality. SOFT TISSUES: Unremarkable. No discrete abdominal or pelvic wall hernia. VASCULATURE: Calcified aorta and iliac arteries without aneurysm. LYMPH NODES: Unremarkable. No enlarged lymph nodes. CT/Abdomen/Pelvis without Cont IMPRESSION: 1. Bilateral pleural effusions and atelectasis or infiltrate in the lung bases. 2. Mild ascites. 3. Cholelithiasis. 4. Evaluation of the GI tract is limited, and segments of bowel wall thickening are not excluded. Electronically Signed: Siddharth Jason MD at 20:52 EDT , Service support ,
[2020-08-17] MEDS: dilTIAZem 25 MG/5 ML Vial 10 MG IV BOLUS (19:52)
[2020-08-17] MEDS: 0.9% Normal Saline 1,000 ML 999 ML IV (19:52)
[2020-08-17 19:56] LABS: Color, Urine Yellow (Yellow); Glucose, Dipstick Normal (Normal); Ketone-Dipstick Negative (Negative); Leukocyte Esterase-Dipstick Negative /ul (Negative); Nitrite-Dipstick Negative (Negative); Occult Blood-Urine Negative /ul (Negative); Protein-Dipstick Negative (Negative); Specific Gravity, Urine 1.015 (1.002-1.030); Urine Bilirubin Dipstick Negative (Negative); Urine Clarity Clear (Clear); Urine Urobilinogen 1 mg/dl (Normal)
[2020-08-17 20:13] LABS: Squamous Epithelial Cells - UA 0-5 SEEN /hpf (5-10)
[2020-08-17 20:17] LABS: Lipase 446 U/L (73-393)
--- NOTE | 2020-08-17 21:16 | PCM.HP.STD ---
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 Patient's family states that patient has not been acting herself all day. Upon arrival to ER patient was placed on cardiac monitoring which showed A. fib with RVR. Patient has a history of A. fib with RVR and has underwent cardioversion in the past unsuccessfully. Patient is currently anticoagulated with Eliquis and Plavix. Patient's other medical history includes atherosclerotic heart disease of [place] coronary artery without angina pectoris, CAD, essential hypertension, hyperlipidemia, ALVERTO on CPAP, hypercholesterolemia. Patient has a surgical history that includes appendectomy, carpal tunnel surgery, left breast biopsy, hysterectomy, coronary angioplasty implant and graft August 20, 2019. Patient currently laying in bed in the ER appears restless, flipping legs outside of bed. Patient confused stating date is August 17 1920, however she is easily reoriented when asked you mean 2020. Patient daughter at bedside states patient has been getting outpatient work-up for possible dementia, hypothyroidism. Past Medical History Past Medical History (Chronic Problems): Chronic Problems (Last Reviewed 08/17/20 @ 22:06 by Tiesha Rea, FRAME TABLE OPERATOR HELPER-C) Hypothyroidism (Chronic) jail current use of anticoagulant (Chronic) Pure hypercholesterolemia (Chronic) ALVERTO on CPAP (Chronic) Essential hypertension (Chronic) Atherosclerotic heart disease of [place] coronary artery without angina pectoris (Chronic) Presence of stent in coronary artery (Chronic ~08/20/19) Successful PTCA/LIZBETH to LCX per cath 08/20/19; PCI/LIZBETH to mid LAD 01/15/09; PCI/BMS to prox LAD 08/20/07 Atrial fibrillation status post cardioversion (Chronic) Medical History: Medical History (Last Reviewed 08/17/20 @ 22:06 by Tiesha Rea NP-C) jail current use of anticoagulant (Chronic) Z79.01 Edema (Inactive) R60.9 Weakness (Acute) R53.1 Shortness of breath (Acute) R06.02 Pure hypercholesterolemia (Chronic) E78.00 ALVERTO on CPAP (Chronic) G47.33, Z99.89 Essential hypertension (Chronic) I10 Atherosclerotic heart disease of [place] coronary artery without angina pectoris (Chronic) I25.10 Presence of stent in coronary artery (Chronic) Onset Date: ~08/20/19 Z95.5 Successful PTCA/LIZBETH to LCX per cath 08/20/19; PCI/LIZBETH to mid LAD 01/15/09; PCI/BMS to prox LAD 08/20/07 Atrial fibrillation status post cardioversion (Chronic) I48.91 NSTEMI (non-ST elevated myocardial infarction) (Resolved) I21.4 CAD (coronary artery disease) I25.10 History of cardioversion Onset Date: ~07/09/20 Z98.890 Hypokalemia E87.6 HTN (hypertension) I10 Hyperlipidemia E78.5 Allergies meperidine [From Demerol] Adverse Reaction (Verified 07/08/20 10:26) Nausea Home Medications: Ambulatory Orders Medication Instructions Recorded Atorvastatin Calcium 40 mg PO DAILY 08/19/19 Clopidogrel Bisulfate [Clopidogrel] 75 mg PO DAILY 08/19/19 Gabapentin [Neurontin] 600 mg PO LUNCH 08/19/19 Gabapentin [Neurontin] 600 mg PO QHS 08/19/19 Losartan Potassium 50 mg PO BID 08/19/19 Pramipexole Di-HCl [Mirapex] 0.25 mg PO BID PRN PRN 08/19/19 Aspirin E.C. [Ecotrin] 81 mg PO DAILY@0800 tab 08/21/19 trazodone 50 mg tablet 50 mg PO QHS PRN 12/30/19 Calcium Carbonate/Vitamin D3 1 tab PO DAILY 05/05/20 [Calcium 600-Vit D3 200 Tablet] Dicyclomine HCl [Bentyl] 10 mg PO ACHS PRN 05/05/20 Fexofenadine HCl [Ratna Allergy] 60 mg PO DAILY 05/05/20 Flaxseed Oil 1,000 mg PO DAILY 05/05/20 Multivit-Min/FA/Lycopen/Lutein 1 tab PO DAILY 05/05/20 [Centrum Silver Tablet] Nitroglycerin SL (ED ONLY) 0.4 mg SL X1 05/05/20 [Nitrostat] [place]-3 Fatty Acids/Fish Oil 1 ea PO BID 05/05/20 [[place] 3 1,000 mg Softgel] Pantoprazole Sodium [Protonix] 40 mg PO DAILY 05/05/20 Sertraline HCl [Zoloft] 25 mg PO DAILY 05/05/20 Vitamin B Complex [B Complex] 1 tab PO DAILY 05/05/20 Melatonin 10 mg PO PRN PRN 05/06/20 amlodipine 2.5 mg tablet 2.5 mg PO DAILY #90 tab 06/01/20 apixaban 2.5 mg tablet 2.5 mg PO BID #180 tab 07/01/20 furosemide 40 mg tablet 40 mg PO BID #180 tab 07/01/20 potassium chloride 20 mEq 20 meq PO BID #180 tab 07/01/20 tablet,extended release(part/cryst) isosorbide mononitrate 60 mg 60 mg PO DAILY 07/08/20 tablet,extended release 24 hr famotidine 20 mg tablet 20 mg PO QHS PRN 08/07/20 hydrochlorothiazide 25 mg tablet 25 mg PO DAILY 08/07/20 levothyroxine 50 mcg tablet 50 mcg PO DAILY 08/07/20 metoprolol tartrate 50 mg tablet 75 mg PO BID tablet 08/10/20 Hydrocodone/Acetaminophen 1 tablet PO BID PRN 08/17/20 [Hydrocodon-Acetaminophen 5-325] Sertraline HCl 50 mg PO DAILY 08/17/20 Surgical History: Surgical History (Last Reviewed 08/17/20 @ 22:06 by Tiesha Rea FRAME TABLE OPERATOR HELPER-C) Presence of coronary angioplasty implant and graft Onset Date: ~08/20/19 Z95.5 Successful PTCA/LIZBETH to LCX per cath 08/20/19 History of appendectomy Z90.49 History of carpal tunnel surgery Z98.890 History of left breast biopsy Z98.890 History of total hysterectomy Z90.710 S/P PTCA (percutaneous transluminal coronary angioplasty) Z98.61 Surgical History: angioplasty - cardiac stent, last placed circa 2006 Psychiatric History: No pertinent psych hx 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: No pertinent PERSONNEL PLACEMENT SPECIALIST history Lives: Alone Smoking Status: Never smoker Alcohol: None Drugs: None - *Family History Maternal Family History: Family History (Last Reviewed 08/17/20 @ 22:06 by BLANCO Hou) Father Heart disease Brother Diabetes Mother COPD (chronic obstructive pulmonary disease) Grandfather Heart disease History Items: COPD Paternal Family History: Family History (Last Reviewed 08/17/20 @ 22:06 by BLANCO Hou) Father Heart disease Brother Diabetes Mother COPD (chronic obstructive pulmonary disease) Grandfather Heart disease History Items: Heart Disease Review of Systems Constitutional: Reports: Weakness. Denies: Chills, Fever, Weight Change HEENT: Denies: Head Aches, Sinus Congestion, Sinus Drainage Cardiovascular: Denies: Chest Pain, Palpitations Respiratory: Denies: Cough, Shortness of breath at rest, Sputum production Gastrointestinal: Denies: Abdominal Pain, Nausea, Vomiting Genitourinary: Denies: Dysuria Musculoskeletal: Denies: Joint Pain, Joint Tenderness Skin: Denies: Rash, Wounds Neurological: Reports: Confusion, Incoordination. Denies: Focal weakness, Numbness, Tingling Psychiatric: Denies: Anxiety, Depression, Homicidal Ideations, Suicidal Ideations Hematologic/ Lymphatic: Denies: Easy Bruising, Easy Bleeding VTE Information - Inpt Only VTE Present on Admission: No VTE Mechan Device Prophylaxis: SCD's VTE Pharm Prophylaxis ordered?: No Patient Problems: Active and Suspected Problems (Last Reviewed 08/17/20 @ 22:06 by Tiesha Rea NP-C) Atrial fibrillation with RVR (Acute) Elevated liver enzymes (Acute) Acute congestive heart failure (Acute) Bilateral pleural effusion (Acute) Weakness (Acute) - Physical Exam Vitals/I&O's: Vital Signs Temp Pulse Resp BP Pulse Ox 98.0 F 105 H 12 96/80 96 08/17/20 18:59 08/17/20 21:04 08/17/20 21:04 08/17/20 21:04 08/17/20 21:04 Oxygen Delivery Method Room Air Weight: 156 lb 4.924 oz Body Mass Index (BMI) 27.6 Finger Stick Blood Glucose 182 Intake and Output for Last 24 Hours 08/15/20 08/16/20 08/17/20 23:59 23:59 23:59 Intake Total 500 / 500 Balance 500 / 500 General: Alert, Cooperative, Confused, Disoriented - Patient alert to self only HEENT: Atraumatic, PERRLA, EOMI, Normocephalic Neck: Supple, No JVD, Negative Carotid Bruits Lungs: Normal air movement, Rhonchi Cardiovascular: Irregular Rate, Tachycardic Abdomen: Bowel Sounds Present, Soft, Non Tender Extremities: No edema, Capillary Refill Less than 3 Seconds Skin: No rashes, No breakdown Musculoskeletal: No Tenderness to Palpation of Joints or Extremities Neurological: Cranial nerves II-XII grossly intact Psych/Mental Status: Normal Affect, Anxious, Impulsive, Restless Laboratory Results 08/17/20 18:35: WBC 9.5, RBC 4.60, Hgb 14.1, Hct 45.0, MCV 97.8, MCH 30.7, MCHC 31.3 L, RDW Std Deviation 62.6 H, RDW Coeff of Brian 17.4 H, Plt Count 276, MPV 9.8, Immature Gran % (Auto) 0.600, Neut % (Auto) 66.1, Lymph % (Auto) 28.5, Smith % (Auto) 4.2, Eos % (Auto) 0.5, Baso % (Auto) 0.1, Absolute Neuts (auto) 6.2, Absolute Lymphs (auto) 2.69, Nucleated RBC % 0 08/17/20 18:35: Sodium 127 L, Potassium 4.3, Chloride 91 L, Carbon Dioxide 27.0, Anion Gap 9, BUN 61 H, Creatinine 1.93 H, Estim Creat Clear Calc 18.27, Est GFR (MDRD) Af Amer 32 L, Est GFR (MDRD) Non-Af 26 L, BUN/Creatinine Ratio 31.6 H, Glucose 155 H, Calcium 8.7, Total Bilirubin 1.40 H, AST 397 H, ALT 683 H, Alkaline Phosphatase 205 H, Troponin I < 0.015, Total Protein 7.3, Albumin 3.7, Globulin 3.6, Albumin/Globulin Ratio 1.0 08/17/20 18:35: B-Natriuretic Peptide 430.3 H 08/17/20 18:35: Lipase 446 H 08/17/20 19:05: POC Glucose 180 H 08/17/20 19:25: Specimen Type ART, Sample Site R Radial, pH 7.41, Bicarbonate Actual 22.9, Total CO2 24, Base Excess -2, O2 Saturation 94 L, O2 % 21, ABG pCO2 36.0, ABG pO2 70 L, Oscar Test Positive 08/17/20 19:45: Urine Color Yellow, Urine Clarity Clear, Urine pH 5.0, Ur Specific [place] 1.015, Urine Protein Negative, Urine Glucose (UA) Normal, Urine Ketones Negative, Urine Occult Blood Negative, Urine Nitrite Negative, Urine Bilirubin Negative, Urine Urobilinogen 1 H, Ur Leukocyte Esterase Negative, Urine RBC 0 SEEN, Urine WBC 0 SEEN, Ur Squamous Epith Cells 0-5 SEEN, Urine Bacteria 0 SEEN, Urine Mucus 0 SEEN Current Medications Diltiazem HCl 125 mg/ Dextrose 125 mls @ 5 mls/hr IV .Q25H ROBERT; Protocol Last Admin: 08/17/20 19:54 Dose: 5 mg/hr, 5 mls/hr Documented by: Assessment/Plan All Active Problems (Last Reviewed 08/17/20 @ 22:06 by Tiesha Rea, FRAME TABLE OPERATOR HELPER-C) Atrial fibrillation with RVR (Acute) Elevated liver enzymes (Acute) Acute congestive heart failure (Acute) Bilateral pleural effusion (Acute) Hypoxemia (Acute) Weakness (Acute) Shortness of breath (Acute) NSTEMI (non-ST elevated myocardial infarction) (Resolved) 1. Atrial fibrillation with RVR -Admit to PCU stepdown due to Cardizem drip -CBC and CMP daily -Check TSH, magnesium, phosphorus. -O2 therapy as needed per protocol -Cardiac diet ordered -Consult cardiology as patient follows closely with cardiology due to ongoing A. fib -OT and PT to eval and treat 2. Elevated liver enzymes -CT shows cholelithiasis and review of past labs show slowly increasing liver enzymes -Obtain ultrasound of gallbladder -Trend liver enzymes daily 3. Acute congestive heart failure likely secondary to A. fib with RVR -See #1 4. Hypothyroidism -Patient has been receiving outpatient monitoring and treatment for recent hypothyroidism -We will check TSH 5. Weakness -PT OT to eval and treat =6. Pure hypercholesterolemia -Continue home medication regimen 7. ALVERTO on CPAP -We will order CPAP while inpatient 8. Essential hypertension -Continue current home medication regimen 9. Long-term current use of anticoagulant -Eliquis and Plavix DVT prophylaxis-not indicated patient chronically anticoagulated with Eliquis and Plavix This patient was seen by Tiesha Rea, SWATI-C under the supervision of Dr. Calvillo <Kirk Calvillo - Last Filed: 08/18/20 05:28> History of Present Illness The patient is a 84 year old F [] Past Medical History Medical History: Medical History (Last Reviewed 08/17/20 @ 22:06 by Tiesha Rea NP-C) jail current use of anticoagulant (Chronic) Z79.01 Edema (Inactive) R60.9 Weakness (Acute) R53.1 Shortness of breath (Acute) R06.02 Pure hypercholesterolemia (Chronic) E78.00 ALVERTO on CPAP (Chronic) G47.33, Z99.89 Essential hypertension (Chronic) I10 Atherosclerotic heart disease of [place] coronary artery without angina pectoris (Chronic) I25.10 Presence of stent in coronary artery (Chronic) Onset Date: ~08/20/19 Z95.5 Successful PTCA/LIZBETH to LCX per cath 08/20/19; PCI/LIZBETH to mid LAD 01/15/09; PCI/BMS to prox LAD 08/20/07 Atrial fibrillation status post cardioversion (Chronic) I48.91 NSTEMI (non-ST elevated myocardial infarction) (Resolved) I21.4 CAD (coronary artery disease) I25.10 History of cardioversion Onset Date: ~07/09/20 Z98.890 Hypokalemia E87.6 HTN (hypertension) I10 Hyperlipidemia E78.5 Allergies meperidine [From Demerol] Adverse Reaction (Verified 07/08/20 10:26) Nausea Surgical History: Surgical History (Last Reviewed 08/17/20 @ 22:06 by Tiesha Rea NP-C) Presence of coronary angioplasty implant and graft Onset Date: ~08/20/19 Z95.5 Successful PTCA/LIZBETH to LCX per cath 08/20/19 History of appendectomy Z90.49 History of carpal tunnel surgery Z98.890 History of left breast biopsy Z98.890 History of total hysterectomy Z90.710 S/P PTCA (percutaneous transluminal coronary angioplasty) Z98.61 - *Family History Maternal Family History: Family History (Last Reviewed 08/17/20 @ 22:06 by Tiesha Rea NP-C) Father Heart disease Brother Diabetes Mother COPD (chronic obstructive pulmonary disease) Grandfather Heart disease Paternal Family History: Family History (Last Reviewed 08/17/20 @ 22:06 by Tiesha Rea NP-C) Father Heart disease Brother Diabetes Mother COPD (chronic obstructive pulmonary disease) Grandfather Heart disease - Physical Exam Vitals/I&O's: Vital Signs Temp Pulse Resp BP Pulse Ox 97.2 F L 82 19 H 80/67 L 94 08/18/20 00:00 08/18/20 04:00 08/18/20 04:00 08/18/20 04:00 08/18/20 04:00 Oxygen Delivery Method Room Air Weight: 154 lb 1.65 oz Body Mass Index (BMI) 27.3 Finger Stick Blood Glucose 182 Intake and Output for Last 24 Hours 08/16/20 08/17/20 08/18/20 23:59 23:59 23:59 Intake Total 1519.25 / 1521.75 135.65 / 135.65 Balance 1519.25 / 1521.75 135.65 / 135.65 Laboratory Results 08/17/20 18:35: WBC 9.5, RBC 4.60, Hgb 14.1, Hct 45.0, MCV 97.8, MCH 30.7, MCHC 31.3 L, RDW Std Deviation 62.6 H, RDW Coeff of Brian 17.4 H, Plt Count 276, MPV 9.8, Immature Gran % (Auto) 0.600, Neut % (Auto) 66.1, Lymph % (Auto) 28.5, Smith % (Auto) 4.2, Eos % (Auto) 0.5, Baso % (Auto) 0.1, Absolute Neuts (auto) 6.2, Absolute Lymphs (auto) 2.69, Nucleated RBC % 0 08/17/20 18:35: Sodium 127 L, Potassium 4.3, Chloride 91 L, Carbon Dioxide 27.0, Anion Gap 9, BUN 61 H, Creatinine 1.93 H, Estim Creat Clear Calc 18.27, Est GFR (MDRD) Af Amer 32 L, Est GFR (MDRD) Non-Af 26 L, BUN/Creatinine Ratio 31.6 H, Glucose 155 H, Calcium 8.7, Total Bilirubin 1.40 H, AST 397 H, ALT 683 H, Alkaline Phosphatase 205 H, Troponin I < 0.015, Total Protein 7.3, Albumin 3.7, Globulin 3.6, Albumin/Globulin Ratio 1.0 04/19/21 18:35: B-Natriuretic Peptide 430.3 H 08/17/20 18:35: Lipase 446 H 08/17/20 19:05: POC Glucose 180 H 08/17/20 19:25: Specimen Type ART, Sample Site R Radial, pH 7.41, Bicarbonate Actual 22.9, Total CO2 24, Base Excess -2, O2 Saturation 94 L, O2 % 21, ABG pCO2 36.0, ABG pO2 70 L, Oscar Test Positive 08/17/20 19:45: Urine Color Yellow, Urine Clarity Clear, Urine pH 5.0, Ur Specific [place] 1.015, Urine Protein Negative, Urine Glucose (UA) Normal, Urine Ketones Negative, Urine Occult Blood Negative, Urine Nitrite Negative, Urine Bilirubin Negative, Urine Urobilinogen 1 H, Ur Leukocyte Esterase Negative, Urine RBC 0 SEEN, Urine WBC 0 SEEN, Ur Squamous Epith Cells 0-5 SEEN, Urine Bacteria 0 SEEN, Urine Mucus 0 SEEN Current Medications Acetaminophen (Acetaminophen 325 Mg Tablet) 650 mg PO Q6H PRN PRN PRN Reason: Pain Score 1-10/Temp > 100.7 F Amlodipine Besylate (Amlodipine 2.5 Mg Tablet) 2.5 mg PO DAILY ROBERT Apixaban (Apixaban 2.5 Mg Tablet) 2.5 mg PO BID ROBERT Aspirin (Aspirin E.C. 81 Mg Tablet) 81 mg PO DAILY@0800 ROBERT Atorvastatin Calcium (Atorvastatin Calcium 40 Mg Tablet) 40 mg PO DAILY@2200 [facility] Clopidogrel Bisulfate (Clopidogrel Bisulfate 75 Mg Tablet) 75 mg PO DAILY ROBERT Furosemide (Furosemide 40 Mg Tablet) 40 mg PO BIDLX ROBERT Gabapentin (Gabapentin 600 Mg Tablet) 600 mg PO QHS ROBERT Gabapentin (Gabapentin 600 Mg Tablet) 600 mg PO LUNCH [facility] Hydrochlorothiazide (Hydrochlorothiazide 25 Mg Tablet) 25 mg PO DAILY [facility] Diltiazem HCl 125 mg/ Dextrose 125 mls @ 5 mls/hr IV .Q25H ROBERT; Protocol Last Admin: 08/17/20 23:21 Dose: Not Given Documented by: Sodium Chloride () 250 mls @ 15 mls/hr IV .[id number] PRN PRN Reason: Saline Flush Sodium Chloride () 250 mls @ 15 mls/hr IV .[id number] PRN PRN Reason: Additional IVPB Infusion Amiodarone HCl 360 mg/ (Dextrose) 200 mls @ 33.333 mls/hr CONT INF .Q6H [facility] Stop: 08/18/20 07:59 Last Infusion: 08/18/20 04:00 Dose: 1 mg/min, 33.3 mls/hr Documented by: Amiodarone HCl 360 mg/ (Dextrose) 200 mls @ 16.667 mls/hr CONT INF .Q12H [facility] Stop: 08/19/20 01:58 Isosorbide Mononitrate (Isosorbide Mononitrate 60 Mg Tablet) 60 mg PO DAILY [facility] Levothyroxine Sodium (Levothyroxine 50 Mcg Tablet) 50 mcg PO DAILY@0600 [facility] Loratadine (Loratadine 10 Mg Tablet) 5 mg PO DAILY [facility] Losartan Potassium (Losartan Potassium 50 Mg Tablet) 50 mg PO BID [facility] Metoprolol Tartrate (Metoprolol Tartrate 25 Mg Tablet) 75 mg PO BID [facility] Last Admin: 08/18/20 01:04 Dose: 75 mg Documented by: Morphine Sulfate (Morphine 2 Mg/Ml Syringe) 2 - 4 mg IV Q3H PRN PRN PRN Reason: Pain Score 6-10 Morphine Sulfate (Morphine 4 Mg/Ml Syringe) 2 - 4 mg IV Q3H PRN PRN PRN Reason: Pain Score 6-10 Multivitamins (Vitamin B Comp W-C Capsule) 1 capsule PO DAILY [facility] Multivitamins/Minerals (Multivitamins,Ther W-Minerals Tablet) [facility] Nitroglycerin (Nitroglycerin (Inpatient Use) 0.4 Mg Tab.Subl) 0.4 mg SL Q5M PRN PRN Reason: CARDIAC/CHEST PAIN [place]-3-Mgeb Ethyl Esters ([place]-3 Acid Ethyl Esters 1 Gm Capsule) 1 gm PO BID [facility] Ondansetron HCl (Ondansetron 4 Mg/2 Ml Vial) 4 mg IV Q8H PRN PRN PRN Reason: NAUSEA/VOMITING Pantoprazole Sodium (Pantoprazole Sodium 40 Mg Tablet) 40 mg PO DAILY [facility] Potassium Chloride (Potassium Chloride Oral Tablet 20 Meq) 20 meq [facility] Pramipexole Dihydrochloride (Pramipexole Di-Hcl 0.25 Mg Tablet) 0.25 mg PO BID PRN PRN PRN Reason: [place]AT[place] Sertraline HCl (Sertraline 50 Mg Tablet) 50 mg PO DAILY ROBERT Sertraline HCl (Sertraline 50 Mg Tablet) 25 mg PO DAILY ROBERT Sodium Chloride (0.9% Saline Lock 10 Ml Syringe) 10 - 40 ml IV UD PRN PRN Reason: SALINE FLUSH Trazodone HCl (Trazodone 50 Mg Tablet) 50 mg PO QHS PRN PRN Reason: SLEEP Last Admin: 08/17/20 23:42 Dose: 50 mg Documented by: Assessment/Plan Patient seen and examined by myself independently and agree with above assessment and plan
--- NOTE | 2020-08-17 22:13 | US_ITS ---
STUDY: ABDOMINAL ULTRASOUND - RIGHT UPPER QUADRANT REASON FOR VISIT: Female, 84 years old elevated liver enzymes TECHNIQUE: Ultrasound evaluation of the right upper quadrant was performed with real-time and static angel-scale imaging. TECHNICAL QUALITY: Limited. The chest COMPARISON: None. FINDINGS: Liver: The liver measures 16.7 cm. There is normal echogenicity of the liver. The bile ducts are within normal limits. There is hepatic color flow. The direction of portal flow is hepatopetal. There is no demonstrated mass lesion. Gallbladder: Normal distended gallbladder. The gallbladder wall thickening up to 6 . There is a negative sonographic Ocasio''s sign. There is no pericholecystic fluid. There are multiple echogenic structures within the gallbladder, consistent with multiple gallstones. Common Bile Duct (C.B.D.): The common bile duct measures 4.0 mm. Pancreas: There is partial obscuration of the tail of the pancreas with normal size of the visualized head, body and tail of the pancreas. There is normal echogenicity of the visualized pancreas. There is no demonstrated pancreatic mass or cyst in the visualized portion. Right Kidney: Normal size of the right kidney. The right kidney measures 9.7 x 5.2 x 4.2 cm. Normal renal cortex. The right cortex measures 1.4 cm. There is no demonstrated renal mass or cyst. There is no right hydronephrosis. There is mild ascites. There is right-sided pleural effusion. US/Gallbladder IMPRESSION: Mild ascites. Right-sided pleural effusion. Multiple gallstones with thickening of gallbladder wall up to 6 mm. Cannot entirely exclude acute cholecystitis. Follow-up recommended with HIDA scan if clinically indicated. Electronically Signed: Tran Cortez MD at 1:02 EDT , Service support ,
[2020-08-17] MEDS: traZODone 50 MG Tablet PO (23:42)
--- NOTE | 2020-08-17 23:59 | CPS ---
Pt refusing PAP therapy at this time.
[2020-08-18] VITALS (40 sets, daily range): BP systolic 73–142; BP diastolic 30–115; PULSE 69–123; RESP 14–27; TEMP 36.1–36.8; O2SAT 90–97
[2020-08-18] MEDS: Metoprolol Tartrate 25 MG Tablet 75 MG PO (01:04)
[2020-08-18] MEDS: Amiodarone 360 MG in Dextrose 5% Viaflo Bag 192.8 ML 33.3 MG CONT INF (02:13)
[2020-08-18] MEDS: Levothyroxine 50 MCG Tablet PO (05:28)
[2020-08-18] MEDS: Acetaminophen 325 MG Tablet 650 MG PO (05:32)
[2020-08-18 05:33] LABS: Absolute Lymphocyte Count 2.62 X10^3/uL (0.83-4.51); Absolute Neutrophil Count 6.8 X10^3/uL (2.0-7.7); Basophil# 0.01 X10^3/uL; Basophil% 0.1 % (0-1); Eosinophil# 0.06 X10^3/uL; Eosinophils% 0.6 % (0-5); Hematocrit 45.4 % (37-47); Hemoglobin 14.2 g/dL (12.0-15.0); Lymphocyte # 2.62 X10^3/ul (0.83-4.51); Lymphocyte % 25.7 % (19-41); Mean Corp Hgb Conc 31.3 g/dL (32-36); Mean Corpuscular Hgb 30.7 pg (27.0-32.0); Mean Corpuscular Volume 98.3 fL (81-99); Mean Platelet Vol. 9.6 fl (6.2-12.0); Monocyte# 0.66 X10^3/uL; Monocyte% 6.5 % (0-10); NRBC Flagged by Analyzer 0 % (0-5); Neutrophil # 6.78 X10^3/uL (2.7-7.7); Neutrophil % 66.4 % (47-70); Platelet Count 260 K/mm3 (150-450); RBC Distribution Width CV 17.5 % (11.6-14.6); RBC Distribution Width SD 62.5 fl (35.1-43.9); Red Blood Count 4.62 M/mm3 (4.2-5.4); White Blood Count 10.2 K/mm3 (4.4-11.0)
[2020-08-18 07:01] LABS: ALB/GLOB Ratio 0.9 RATIO (0.9-2.4); AST(SGOT) 317 U/L (15-37); Alanine Aminotransfer ALT/SGPT 588 U/L (13-56); Albumin, Serum 3.2 g/dL (3.2-5.0); Alkaline Phosphatase 213 U/L (45-117); Anion Gap 13 (5-15); BUN 53 mg/dL (7-18); BUN/Creat Ratio 29.6 RATIO (10-20); Bilirubin, Direct 0.82 mg/dL (0.00-0.30); Calcium,Total 8.2 mg/dL (8.5-10.1); Chloride 94 mmol/L (98-107); Creatinine, Serum 1.79 mg/dL (0.55-1.02); EST Glomerular Filtration Rate 29 mL/min (>60); Est Glom Filt Rate - Afr Amer 35 mL/min (>60); Globulin 3.4 g/dL (2.2-4.2); Glucose 162 mg/dL (74-106); Magnesium 2.5 mg/dL (1.6-2.6); Phosphorus 3.8 mg/dL (2.5-4.9); Potassium 4.3 mmol/L (3.5-5.1); Protein, Total 6.6 g/dL (6.4-8.2); Sodium Level 126 mmol/L (136-145)
--- NOTE | 2020-08-18 08:10 | PCM.PN.HOSP ---
Patient Problems: Active and Suspected Problems (Last Reviewed 08/17/20 @ 22:06 by Tiesha Rea, PERINATAL INSTRUCTOR-C) Atrial fibrillation with RVR (Acute) Elevated liver enzymes (Acute) Acute congestive heart failure (Acute) Bilateral pleural effusion (Acute) Weakness (Acute) Reason for Visit: Follow-up with Ravindra varghese with RVR, acute on chronic diastolic heart failure Objective: Patient has nonspecific complaint of generalized weakness, shortness of breath and low energy. Denies specific chest pain or pressure, palpitation. Physical exam General: Awake, Fluctuating level of alertness, sometimes confused and disoriented HEENT: Atraumatic, PERRLA, EOMI, Normocephalic Oral: No Gingival or Mucosal Lesions/ Ulcerations Neck: Supple, No JVD, Negative Carotid Bruits Lungs: Air entry diminished in bilateral lung bases. No crepitation/rhonchi Cardiovascular: Irregular rate and rhythm normal S1, Normal S2, No murmurs Abdomen: Bowel Sounds Present, Soft, Non Tender, Non-Distended : No renal angle tenderness. No suprapubic tenderness. Extremities: Mild bilateral lower leg edema, Capillary Refill Less than 3 Seconds Skin: No rashes, No breakdown Musculoskeletal: No Tenderness to Palpation of Joints or Extremities Neurological: Cranial nerves II-XII grossly intact, Deep Tendon Reflexes 2+/4 and Symmetrical, Neuro grossly intact Psych/Mental Status: Flat affect. Vitals/I&O's: Vital Signs Temp Pulse Resp BP Pulse Ox 97.8 F 69 20 H 90/59 L 90 08/18/20 06:00 08/18/20 06:00 08/18/20 06:00 08/18/20 06:00 08/18/20 06:00 Oxygen Delivery Method Room Air Weight: 154 lb 1.65 oz Body Mass Index (BMI) 27.3 Finger Stick Blood Glucose 182 Intake and Output for Last 24 Hours 08/16/20 08/17/20 08/18/20 23:59 23:59 23:59 Intake Total 1519.25 / 1521.75 205.25 / 205.25 Balance 1519.25 / 1521.75 205.25 / 205.25 Laboratory Results 08/17/20 18:35: WBC 9.5, RBC 4.60, Hgb 14.1, Hct 45.0, MCV 97.8, MCH 30.7, MCHC 31.3 L, RDW Std Deviation 62.6 H, RDW Coeff of Brian 17.4 H, Plt Count 276, MPV 9.8, Immature Gran % (Auto) 0.600, Neut % (Auto) 66.1, Lymph % (Auto) 28.5, [place] % (Auto) 4.2, Eos % (Auto) 0.5, Baso % (Auto) 0.1, Absolute Neuts (auto) 6.2, Absolute Lymphs (auto) 2.69, Nucleated RBC % 0 08/17/20 18:35: Sodium 127 L, Potassium 4.3, Chloride 91 L, Carbon Dioxide 27.0, Anion Gap 9, BUN 61 H, Creatinine 1.93 H, Estim Creat Clear Calc 18.27, Est GFR (MDRD) Af Amer 32 L, Est GFR (MDRD) Non-Af 26 L, BUN/Creatinine Ratio 31.6 H, Glucose 155 H, Calcium 8.7, Total Bilirubin 1.40 H, AST 397 H, ALT 683 H, Alkaline Phosphatase 205 H, Troponin I < 0.015, Total Protein 7.3, Albumin 3.7, Globulin 3.6, Albumin/Globulin Ratio 1.0 08/17/20 18:35: B-Natriuretic Peptide 430.3 H 08/17/20 18:35: Lipase 446 H 08/17/20 19:05: POC Glucose 180 H 08/17/20 19:25: Specimen Type ART, Sample Site R Radial, pH 7.41, Bicarbonate Actual 22.9, Total CO2 24, Base Excess -2, O2 Saturation 94 L, O2 % 21, ABG pCO2 36.0, ABG pO2 70 L, Oscar Test Positive 08/17/20 19:45: Urine Color Yellow, Urine Clarity Clear, Urine pH 5.0, Ur Specific [place] 1.015, Urine Protein Negative, Urine Glucose (UA) Normal, Urine Ketones Negative, Urine Occult Blood Negative, Urine Nitrite Negative, Urine Bilirubin Negative, Urine Urobilinogen 1 H, Ur Leukocyte Esterase Negative, Urine RBC 0 SEEN, Urine WBC 0 SEEN, Ur Squamous Epith Cells 0-5 SEEN, Urine Bacteria 0 SEEN, Urine Mucus 0 SEEN 08/18/20 04:54: WBC 10.2, RBC 4.62, Hgb 14.2, Hct 45.4, MCV 98.3, MCH 30.7, MCHC 31.3 L, RDW Std Deviation 62.5 H, RDW Coeff of Brian 17.5 H, Plt Count 260, MPV 9.6, Immature Gran % (Auto) 0.700, Neut % (Auto) 66.4, Lymph % (Auto) 25.7, [place] % (Auto) 6.5, Eos % (Auto) 0.6, Baso % (Auto) 0.1, Absolute Neuts (auto) 6.8, Absolute Lymphs (auto) 2.62, Nucleated RBC % 0 08/18/20 04:54: Sodium 126 L, Potassium 4.3, Chloride 94 L, Carbon Dioxide 19.0 L, Anion Gap 13, BUN 53 H, Creatinine 1.79 H, Estim Creat Clear Calc 19.70, Est GFR (MDRD) Af Amer 35 L, Est GFR (MDRD) Non-Af 29 L, BUN/Creatinine Ratio 29.6 H, Glucose 162 H, Calcium 8.2 L, Phosphorus 3.8, Magnesium 2.5, Total Bilirubin 1.40 H, Direct Bilirubin 0.82 H, AST 317 H, ALT 588 H, Alkaline Phosphatase 213 H, Total Protein 6.6, Albumin 3.2, Globulin 3.4, Albumin/Globulin Ratio 0.9, TSH 10.40 H Current Medications Acetaminophen (Acetaminophen 325 Mg Tablet) 650 mg PO Q6H PRN PRN PRN Reason: Pain Score 1-10/Temp > 100.7 F Last Admin: 08/18/20 05:32 Dose: 650 mg Documented by: Amlodipine Besylate (Amlodipine 2.5 Mg Tablet) 2.5 mg PO DAILY [facility] Apixaban (Apixaban 2.5 Mg Tablet) 2.5 mg PO BID [facility] Aspirin (Aspirin E.C. 81 Mg Tablet) 81 mg PO DAILY@0800 [facility] Atorvastatin Calcium (Atorvastatin Calcium 40 Mg Tablet) 40 mg PO DAILY@2200 [facility] Clopidogrel Bisulfate (Clopidogrel Bisulfate 75 Mg Tablet) 75 mg PO DAILY [facility] Furosemide (Furosemide 40 Mg Tablet) 40 mg PO BIDLX [facility] Gabapentin (Gabapentin 600 Mg Tablet) 600 mg PO QHS [facility] Gabapentin (Gabapentin 600 Mg Tablet) 600 mg PO LUNCH ORBERT Hydrochlorothiazide (Hydrochlorothiazide 25 Mg Tablet) 25 mg PO DAILY [facility] Sodium Chloride () 250 mls @ 15 mls/hr IV .[id number] PRN PRN Reason: Saline Flush Sodium Chloride () 250 mls @ 15 mls/hr IV .[id number] PRN PRN Reason: Additional IVPB Infusion Amiodarone HCl 360 mg/ (Dextrose) 200 mls @ 16.667 mls/hr CONT INF .Q12H [facility] Stop: 08/19/20 01:58 Isosorbide Mononitrate (Isosorbide Mononitrate 60 Mg Tablet) 60 mg PO DAILY [facility] Levothyroxine Sodium (Levothyroxine 50 Mcg Tablet) 50 mcg PO DAILY@0600 [facility] Last Admin: 08/18/20 05:28 Dose: 50 mcg Documented by: Loratadine (Loratadine 10 Mg Tablet) 5 mg PO DAILY [facility] Losartan Potassium (Losartan Potassium 50 Mg Tablet) 50 mg PO BID [facility] Metoprolol Tartrate (Metoprolol Tartrate 25 Mg Tablet) 75 mg PO BID [facility] Last Admin: 08/18/20 01:04 Dose: 75 mg Documented by: Morphine Sulfate (Morphine 2 Mg/Ml Syringe) 2 - 4 mg IV Q3H PRN PRN PRN Reason: Pain Score 6-10 Morphine Sulfate (Morphine 4 Mg/Ml Syringe) 2 - 4 mg IV Q3H PRN PRN PRN Reason: Pain Score 6-10 Multivitamins (Vitamin B Comp W-C Capsule) 1 capsule PO DAILY [facility] Multivitamins/Minerals (Multivitamins,Ther W-Minerals Tablet) [facility] Nitroglycerin (Nitroglycerin (Inpatient Use) 0.4 Mg Tab.Subl) 0.4 mg SL Q5M PRN PRN Reason: CARDIAC/CHEST PAIN Gpcri-2-Fwuv Ethyl Esters ([place]-3 Acid Ethyl Esters 1 Gm Capsule) 1 gm PO BID [facility] Ondansetron HCl (Ondansetron 4 Mg/2 Ml Vial) 4 mg IV Q8H PRN PRN PRN Reason: NAUSEA/VOMITING Pantoprazole Sodium (Pantoprazole Sodium 40 Mg Tablet) 40 mg PO DAILY [facility] Potassium Chloride (Potassium Chloride Oral Tablet 20 Meq) [facility] Pramipexole Dihydrochloride (Pramipexole Di-Hcl 0.25 Mg Tablet) 0.25 mg PO BID PRN PRN PRN Reason: SCIATICA Sertraline HCl (Sertraline 50 Mg Tablet) 50 mg PO DAILY [facility] Sertraline HCl (Sertraline 50 Mg Tablet) 25 mg PO DAILY [facility] Sodium Chloride (0.9% Saline Lock 10 Ml Syringe) 10 - 40 ml IV UD PRN PRN Reason: SALINE FLUSH Trazodone HCl (Trazodone 50 Mg Tablet) 50 mg PO QHS PRN PRN Reason: SLEEP Last Admin: 08/17/20 23:42 Dose: 50 mg Documented by: STROKE Vital Signs/Narrative: Vital Signs Temp Pulse Resp BP Pulse Ox 08/18/20 06:00 97.8 F 69 20 H 90/59 L 90 08/18/20 05:00 72 19 H 77/65 L 93 Medical Necessity - Tobacco Use Smoking Status: Never smoker Assessment/Plan All Active Problems (Last Reviewed 08/17/20 @ 22:06 by Tiesha Rea NP-C) Atrial fibrillation with RVR (Acute) Elevated liver enzymes (Acute) Acute congestive heart failure (Acute) Bilateral pleural effusion (Acute) Hypoxemia (Acute) Weakness (Acute) Shortness of breath (Acute) NSTEMI (non-ST elevated myocardial infarction) (Resolved) This is a 84-year-old female who initially presented to ER with generalized weakness and found to be A. fib RVR, cholelithiasis 1. Atrial fibrillation with RVR coronary artery disease with recent PCI: Patient is being admitted in PCU. She did not respond to Cardizem bolus and drip therefore changed to amiodarone IV drip. On metoprolol. Heart rate currently around 100. TSH elevated 10.4, serum magnesium 2.5, phosphorus 3.8. K4.3. Serum sodium 126. She had successful PTCA/LIZBETH to left circumflex in July 2019. She failed multiple multiple medical attempts and synchronized DC cardioversion and is due for upcoming [facility] EP evaluation for AV node ablation and permanent pacemaker. Patient on aspirin, Eliquis, amiodarone drip, atorvastatin, Plavix, and losartan. 2. Calculus cholelithiasis: Patient does not have abdominal pain or tenderness. ALT AST elevated as compared to June 21. Alkaline phosphatase 213. Liver enzymes are trending down. Total bili 1.4. Gallbladder ultrasound shows GB wall 6 mm with negative sonographic Ocasio sign. Monitor liver chemistry test. 3. Acute on chronic diastolic heart failure secondary to A. fib with RVR: Heart failure core measures including intake and output, fluid restriction less than 1500 mL, daily weight monitoring, kidney and electrolytes monitoring. On Lasix rest as mentioned above 4. Hypothyroidism: Dose of Synthroid increased. TSH elevated. Free T4 tomorrow a.m. 5. Generalized weakness, decreased ADL -PT OT to eval and treat 6. Pure hypercholesterolemia -Continue home medication regimen 7. ALVERTO on CPAP CPAP while inpatient 8. Essential hypertension -Continue current home medication regimen 9. Long-term current use of anticoagulant -Eliquis and Plavix DVT prophylaxis-not indicated patient chronically anticoagulated with Eliquis and Plavix Clinical Impression(s) from Imaging Studies Brain CT 08/17/20 18:57 IMPRESSION: No acute intracranial abnormality. Chronic involutional and ischemic changes of the brain. Right maxillary and sphenoid sinusitis. Electronically Signed: Jon Luna MD at 20:06 EDT Tel , Service support , Chest X-Ray 08/17/20 19:00 IMPRESSION: Incomplete expansion of the lungs. Probable atelectasis in the medial posterior left lung base. Electronically Signed: Siddharth Jasno MD at 19:42 EDT , Service support , Abdomen/Pelvis CT 08/17/20 19:51 IMPRESSION: 1. Bilateral pleural effusions and atelectasis or infiltrate in the lung bases. 2. Mild ascites. 3. Cholelithiasis. 4. Evaluation of the GI tract is limited, and segments of bowel wall thickening are not excluded. Gallbladder Ultrasound 08/17/20 22:13 IMPRESSION: Mild ascites. Right-sided pleural effusion. Multiple gallstones with thickening of gallbladder wall up to 6 mm. Cannot entirely exclude acute cholecystitis. Follow-up recommended with HIDA scan if clinically indicated. Inpatient E&M: [id number] [facility] Hosp L2
[2020-08-18] MEDS: Amiodarone 360 MG in Dextrose 5% Viaflo Bag 192.8 ML 16.7 MG CONT INF ×2 (08:19→20:18)
[2020-08-18] MEDS: Aspirin E.C. 81 MG Tablet PO (10:04)
[2020-08-18] MEDS: Potassium Chloride Oral Tablet 20 MEQ PO ×2 (10:04→17:50)
[2020-08-18] MEDS: Multivitamins,Ther W-Minerals Tablet 1 TABLET PO (10:04)
[2020-08-18] MEDS: Loratadine 10 MG Tablet 5 MG PO (10:04)
[2020-08-18] MEDS: Omega-3 Acid Ethyl Esters 1 GM Capsule PO ×2 (10:05→22:34)
[2020-08-18] MEDS: Clopidogrel Bisulfate 75 MG Tablet PO (10:05)
[2020-08-18] MEDS: Vitamin B Comp W-C Capsule 1 CAP PO (10:05)
[2020-08-18] MEDS: Pantoprazole Sodium 40 MG Tablet PO (10:05)
[2020-08-18] MEDS: Sertraline 50 MG Tablet 25 MG PO (10:08)
[2020-08-18] MEDS: APIXABAN 2.5 MG TABLET PO ×2 (10:08→22:34)
[2020-08-18] MEDS: Sertraline 50 MG Tablet PO (10:08)
--- NOTE | 2020-08-18 10:20 | CASEMGMT ---
NICOLE RODRIGUEZ assessment: Face to Face with patient for initial transition planning/care coordination assessment. NICOLE RODRIGUEZ introduced self and role at [facility], pt voices understanding and consents to assessment. Pt is lying in bed on 3L nc in no distress. Pt is A/Ox4 and answers all questions appropriately. Care providers, pharmacy, and demographics verified. Presentation: C/O increased weakness, unable to ambulate, Hx of Afib, Heart rate 120-150 per squad Admitting dx: Afib w/ RVR PCP: Piyush Specialists: Mireya, cardio; Vanessa, MERVAT Preferred Pharmacy: [facility] Insurance: [employer] Prescription Benefit: [employer] Living Will/HPOA: Pt has LW/HPOA and is aware that they are on file at [facility]. Pt's daughter, Ciera Vora, is HPOA. LNOK: Ciera/Mervin Vora, daughter/HPOA; Debbie Urban, daughter Living Arrangements: Pt states lives alone in 1 story home with 1 step in and states no concerns at home. Pt states is independent with ADL's. Transportation: Pt states uses [employer] and states no transportation concerns. DME/HHC: Pt states has the following DME: rollator, grab bars, shower chair, and cpap thru [employer]. Pt states no need for further DME. Pt states no hx of SNF but has had [facility] in the past and may be interested in this again. Pt states no concerns with going home at time of discharge. Pt is retired. Pt states does not smoke cigarettes or drink ETOH. Pt states no further concerns/needs. CM to follow for PT/OT evals and any further discharge planning/needs. Advised pt to ask for CM if any further questions/concerns/needs arise, voices understanding. Pt Goal: [place]LE RODRIGUEZ
[2020-08-18] MEDS: Furosemide 40 MG Tablet PO ×2 (11:10→17:51)
[2020-08-18] MEDS: Gabapentin 600 MG Tablet PO ×2 (11:11→22:34)
--- NOTE | 2020-08-18 11:40 | CON.PCM_ITS ---
Problem List (1) Atrial fibrillation with RVR Status: Acute (2) Acute congestive heart failure Status: Acute (3) Atherosclerotic heart disease of [place] coronary artery without angina pectoris Status: Chronic Qualifiers: (4) Presence of stent in coronary artery Status: Chronic Comment: Successful PTCA/LIZBETH to LCX per cath 08/20/19; PCI/LIZBETH to mid LAD 01/15/09; PCI/BMS to prox LAD 08/20/07 (5) Pure hypercholesterolemia Status: Chronic (6) Essential hypertension Status: Chronic Reason for Consult Date of Consultation: 08/18/20 History of Present Illness: The patient is a 84 year old white female with a past history of atrial fibrillation, CAD, PCI, CHF, hyperlipidemia, and hypertension who is awaiting [facility] EP procedure with AV node ablation with permanent pacemaker placement who presents back to the hospital in the interim for concerns of atrial fibrillation with RVR and shortness of breath/dyspnea concerning for acute on chronic CHF-diastolic mediated as well as mental status changes. He was brought into the PCU for further evaluation and care. She states that her main concern was that she felt she could not breathe comfortably. She denied ongoing chest discomfort. She has had waxing and waning lower extremity peripheral pitting edema in the past. There was no report of near syncope or syncope. She underwent evaluation with troponin I level which was negative. Her BNP level was elevated. She was noted to have atrial fibrillation. She has been treated with rate limiting therapy and antiarrhythmic therapy with IV amiodarone. She has been evaluated by [facility] electrophysiology. She is scheduled for an upcoming AV node ablation with permanent pacemaker placement to assist with controlling her cardiac rate and rhythm as she has not been responsive, with respect to her atrial fibrillation, to multiple medical management attempts in the past including antiarrhythmic therapy as well as synchronized biphasic DC cardioversion. [] Past Medical History Allergies/Adverse Reactions: Allergies meperidine [From Demerol] Adverse Reaction (Verified 07/08/20 10:26) Nausea Home Medications: Ambulatory Orders Medication Instructions Recorded Atorvastatin Calcium 40 mg PO DAILY 08/19/19 Clopidogrel Bisulfate [Clopidogrel] 75 mg PO DAILY 08/19/19 Gabapentin [Neurontin] 600 mg PO LUNCH 08/19/19 Gabapentin [Neurontin] 600 mg PO QHS 08/19/19 Losartan Potassium 50 mg PO BID 08/19/19 Pramipexole Di-HCl [Mirapex] 0.25 mg PO BID PRN PRN 08/19/19 Aspirin E.C. [Ecotrin] 81 mg PO DAILY@0800 tab 08/21/19 trazodone 50 mg tablet 50 mg PO QHS PRN 12/30/19 Calcium Carbonate/Vitamin D3 1 tab PO DAILY 05/05/20 [Calcium 600-Vit D3 200 Tablet] Dicyclomine HCl [Bentyl] 10 mg PO ACHS PRN 05/05/20 Fexofenadine HCl [Ratna Allergy] 60 mg PO DAILY 05/05/20 Flaxseed Oil 1,000 mg PO DAILY 05/05/20 Multivit-Min/FA/Lycopen/Lutein 1 tab PO DAILY 05/05/20 [Centrum Silver Tablet] Nitroglycerin SL (ED ONLY) 0.4 mg SL X1 05/05/20 [Nitrostat] [place]-3 Fatty Acids/Fish Oil 1 ea PO BID 05/05/20 [[place] 3 1,000 mg Softgel] Pantoprazole Sodium [Protonix] 40 mg PO DAILY 05/05/20 Sertraline HCl [Zoloft] 25 mg PO DAILY 05/05/20 Vitamin B Complex [B Complex] 1 tab PO DAILY 05/05/20 Melatonin 10 mg PO PRN PRN 05/06/20 amlodipine 2.5 mg tablet 2.5 mg PO DAILY #90 tab 06/01/20 apixaban 2.5 mg tablet 2.5 mg PO BID #180 tab 07/01/20 furosemide 40 mg tablet 40 mg PO BID #180 tab 07/01/20 potassium chloride 20 mEq 20 meq PO BID #180 tab 07/01/20 tablet,extended release(part/cryst) isosorbide mononitrate 60 mg 60 mg PO DAILY 07/08/20 tablet,extended release 24 hr famotidine 20 mg tablet 20 mg PO QHS PRN 08/07/20 hydrochlorothiazide 25 mg tablet 25 mg PO DAILY 08/07/20 levothyroxine 50 mcg tablet 50 mcg PO DAILY 08/07/20 metoprolol tartrate 50 mg tablet 75 mg PO BID tablet 08/10/20 Hydrocodone/Acetaminophen 1 tablet PO BID PRN 08/17/20 [Hydrocodon-Acetaminophen 5-325] Sertraline HCl 50 mg PO DAILY 08/17/20 Past Medical History (Chronic Problems): Chronic Problems (Last Reviewed 08/17/20 @ 22:06 by Tiesha Rea NP-C) Hypothyroidism (Chronic) senior care current use of anticoagulant (Chronic) Pure hypercholesterolemia (Chronic) ALVERTO on CPAP (Chronic) Essential hypertension (Chronic) Atherosclerotic heart disease of [place] coronary artery without angina pectoris (Chronic) Presence of stent in coronary artery (Chronic ~08/20/19) Successful PTCA/LIZBETH to LCX per cath 08/20/19; PCI/LIZBETH to mid LAD 01/15/09; PCI/BMS to prox LAD 08/20/07 Atrial fibrillation status post cardioversion (Chronic) Surgical History: angioplasty - cardiac stent, last placed circa 2006 Psychiatric History: No pertinent psych hx 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: No pertinent 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 history - *Family History Maternal Family History: Family History (Last Reviewed 08/17/20 @ 22:06 by Tiesha Rea NP-C) Father Heart disease Brother Diabetes Mother COPD (chronic obstructive pulmonary disease) Grandfather Heart disease History Items: COPD Paternal Family History: Family History (Last Reviewed 08/17/20 @ 22:06 by Tiesha Rea NP-C) Father Heart disease Brother Diabetes Mother COPD (chronic obstructive pulmonary disease) Grandfather Heart disease History Items: Heart Disease Lives: Alone Smoking Status: Never smoker Alcohol: None Drugs: None Subjectve: This is an 84-year-old white female who appears to be resting reasonably comfortably at the moment in no acute distress. Objective: Vital Signs Temp Pulse Resp BP Pulse Ox 98.2 F 97 19 H 116/75 96 08/18/20 08:53 08/18/20 11:00 08/18/20 11:00 08/18/20 11:00 08/18/20 11:00 Oxygen Flow Rate (L/min) 3 Oxygen Delivery Method Nasal Cannula Weight: 154 lb 1.65 oz Body Mass Index (BMI) 27.3 Finger Stick Blood Glucose 182 Intake and Output for Last 24 Hours 08/16/20 08/17/20 08/18/20 23:59 23:59 23:59 Intake Total 1519.25 / 1521.75 324.06 / 324.06 Balance 1519.25 / 1521.75 324.06 / 324.06 General: Awake, Cooperative, No Acute Distress HEENT: Atraumatic, Normocephalic, PERRL, EOMI, Sclera Non Icteric Neck: Supple, Good ROM Lungs: Inspiratory Wheezes - Beto Cardiovascular: Irregular Rhythm, Normal S1, Normal S2 Abdomen: Bowel Sounds Present, Soft Extremities: Mild RLE Edema, Mild LLE Edema Psych/Mental Status: Appropriate 08/17/20 18:35: WBC 9.5, RBC 4.60, Hgb 14.1, Hct 45.0, MCV 97.8, MCH 30.7, MCHC 31.3 L, Plt Count 276, MPV 9.8, Immature Gran % (Auto) 0.600, Neut % (Auto) 66.1, Lymph % (Auto) 28.5, [place] % (Auto) 4.2, Eos % (Auto) 0.5, Baso % (Auto) 0.1, Absolute Neuts (auto) 6.2, Nucleated RBC % 0 08/17/20 18:35: Sodium 127 L, Potassium 4.3, Chloride 91 L, Carbon Dioxide 27.0, Anion Gap 9, BUN 61 H, Creatinine 1.93 H, Est GFR (MDRD) Af Amer 32 L, Est GFR (MDRD) Non-Af 26 L, BUN/Creatinine Ratio 31.6 H, Glucose 155 H, Calcium 8.7, Total Bilirubin 1.40 H, Troponin I < 0.015 08/17/20 18:35: B-Natriuretic Peptide 430.3 H 08/17/20 19:25: pH 7.41, Bicarbonate Actual 22.9, Base Excess -2, O2 Saturation 94 L, ABG pCO2 36.0, ABG pO2 70 L, Oscar Test Positive 08/17/20 19:45: Urine Color Yellow, Urine Clarity Clear, Urine pH 5.0, Ur Specific [place] 1.015, Urine Protein Negative, Urine Glucose (UA) Normal, Urine Ketones Negative, Urine Occult Blood Negative, Urine Nitrite Negative, Urine Bilirubin Negative, Urine Urobilinogen 1 H, Ur Leukocyte Esterase Negative, Urine RBC 0 SEEN, Urine WBC 0 SEEN 08/18/20 04:54: WBC 10.2, RBC 4.62, Hgb 14.2, Hct 45.4, MCV 98.3, MCH 30.7, MCHC 31.3 L, Plt Count 260, MPV 9.6, Immature Gran % (Auto) 0.700, Neut % (Auto) 66.4, Lymph % (Auto) 25.7, [place] % (Auto) 6.5, Eos % (Auto) 0.6, Baso % (Auto) 0.1, Absolute Neuts (auto) 6.8, Nucleated RBC % 0 08/18/20 04:54: Sodium 126 L, Potassium 4.3, Chloride 94 L, Carbon Dioxide 19.0 L, Anion Gap 13, BUN 53 H, Creatinine 1.79 H, Est GFR (MDRD) Af Amer 35 L, Est GFR (MDRD) Non-Af 29 L, BUN/Creatinine Ratio 29.6 H, Glucose 162 H, Calcium 8.2 L, Phosphorus 3.8, Magnesium 2.5, Total Bilirubin 1.40 H, Direct Bilirubin 0.82 H Rhythm: Atrial fibrillation EKG: Atrial fibrillation; low voltage QRS; poor R wave progression; anteroseptal SD of indeterminate age cannot be excluded ECHO: 05/05/2020 Interpretation Summary The study was technically difficult. Contrast injection was performed. Left ventricular systolic function is normal. The estimated ejection fraction is 65 %. The left atrium is mildly enlarged. There is mild mitral annular calcification. Extension of the mitral annular calcification onto the base of the posterior mitral valve leaflet. Mild (1+) mitral valve insufficiency. Mild to moderate (1-2+) tricuspid valve insufficiency. Right ventricular systolic pressure estimated to be 35 mmHg. Unable to assess diastolic dysfunction. Cardiac Cath: 08/20/2019 CONCLUSIONS Elevated Left Ventricular End Diastolic Pressure Segmented LV systolic dysfunction- Mild LVEF: by LV gram 70 % [place] Multivessel CAD RECOMMENDATIONS Risk factor modification Medical therapy Referred for immediate PCI DESCRIPTION OF PROCEDURE The patient arrived to the procedure lab. The risks and benefits of the procedure as well as a full description of our services here and current unavailability of surgical backup were fully explained to the patient and/or their significant other prior to the catheterization. The Timeout was completed, verifying the correct patient and procedure. The patient's procedural site was prepped and draped in the usual fashion. Local anesthetic was given subcutaneously to right radial region with Lidocaine 2%. Using a modified Seldinger technique, arterial access was obtained via the right radial artery, a 6Fr sheath was inserted. Left Coronary Artery selective angiography was performed in multiple views using a 5 Fr. 4.0 Batson catheter. Right Coronary Artery selective angiography was then performed in multiple views using a 5 Fr. 4.0 Batson catheter. Left Ventriculography was performed in AGUILAR projection using a 5 Fr. Pigtail catheter. LV to AO pullback pressures were then recorded.The arterial sheath was pulled and a TR Band was applied for hemostasis-12cc CORONARY ANGIOGRAPHY DOMINANCE: Left Dominant LEFT HEART ASSESSMENT Left Ventricular Ejection Fraction: by LV Gram 70 % Inferior Apical Akinesis Elevated Left Ventricular End Diastolic Pressure LVEDP: 21 mmHg LEFT MAIN: Mild luminal irregularities LEFT ANTERIOR DESCENDING ARTERY: PROX LAD: Mild luminal irregularities, 25 % Stenosis MID LAD: Previously placed stent is patent with mild luminal irregularities, 25 % Stenosis DIAGONAL 1: Proximal - 75 % Stenosis (small caliber vessel) DIAGONAL 2: Proximal - 25 % Stenosis (small caliber vessel) DIAGONAL 3: Proximal - 25 % Stenosis (small caliber vessel) CIRCUMFLEX ARTERY: OSTIAL CIRC: 85 % Stenosis PROX CIRC: Mild calcification OM 1: Proximal - Mild luminal irregularities (small caliber vessel) OM 2: Mid - diffuse: 25 % Stenosis RIGHT CORONARY ARTERY: PROX RCA: 75 % Stenosis MID RCA: 50 % Stenosis AORTIC ROOT: Angiographically normal PCI: 08/20/2019 CONCLUSIONS Successful PTCA/LIZBETH to oLCx CXR: IMPRESSION: Incomplete expansion of the lungs. Probable atelectasis in the medial posterior left lung base. Electronically Signed: Siddharth Jason MD at 19:42 EDT Assessment/Plan 1. Atrial fibrillation with RVR The patient presents back with atrial fibrillation with RVR. She has been evaluated in the past for this and undergone multiple medical attempts and synchronized biphasic DC cardioversion. She is pending upcoming [facility] EP evaluation for AV node ablation with permanent pacemaker support. In the interim she will continue rate control therapy and anticoagulant therapy as best as possible. 2. Acute on chronic CHF-diastolic Is concerned that she had recurrence of acute on chronic CHF-diastolic. This may be exacerbated by her atrial dysrhythmia. At the moment she will continue medical therapy which does include diuretic therapy to assist with her ongoing evaluation and care. 3. CAD status post PCI She underwent PCI in July 2019 as previously noted. She has been on medical management. It may be reasonable as there is no evidence of a recurrent acute coronary syndrome for her to continue medical therapy such as her aspirin therapy. However, perhaps now 1 year out from her PCI, she can DC her antiplatelet therapy with clopidogrel/Plavix, especially noting she is on anticoagulant therapy for her atrial dysrhythmia. 4. Hyperlipidemia She will continue risk factor evaluation care as deemed appropriate. 5. Hypertension Her blood pressure can be followed with her medicines adjusted as necessary. Comment: Overall, the patient will continue conservative medical management to assist with her multiple cardiovascular issues at this time. However, she does need to continue plans to proceed with her [facility] EP evaluation for AV node ablation and permanent pacemaker support. Depending upon her clinical course consideration will have to be given as to whether she can proceed with this as previously scheduled as an outpatient or she will need to be considered for transfer to that center for ongoing evaluation and care. This note was generated using a voice recognition system and there may be incorrect words, spelling or punctuation that were not noted when reviewing the office note prior to saving. Procedure Criteria Procedure Type: Elective COVID Risk Discussion: The surgeon/proceduralist and patient have discussed in detail the risk of exposure to and/or potential harm posed by the COVID-19 virus with having a surgery/procedure at this time versus the risk of delaying the surgery/procedure. It is not possible to know either the risk of delaying the surgery or procedure or chance of getting an infection with perfect accuracy, but a joint decision was made between the patient and the surgeon/proceduralist to proceed at this time with the scheduled surgery/procedure as indicated on the consent form.
--- NOTE | 2020-08-18 14:03 | CASEMGMT ---
[facility] palliative screening tool completed as pt is a strata 3 but pt does not meet palliative criteria at this time. SStfransisca RIVERA CM
[2020-08-18] MEDS: Atorvastatin Calcium 40 MG Tablet PO (22:34)
[2020-08-18] MEDS: Losartan Potassium 50 MG Tablet PO (22:34)
[2020-08-18] MEDS: Zolpidem Tartrate 5 MG Tablet PO (22:34)
[2020-08-19] VITALS (32 sets, daily range): BP systolic 85–161; BP diastolic 54–101; PULSE 103–146; RESP 16–33; TEMP 36.1–37.1; O2SAT 92–100
[2020-08-19] MEDS: Metoprolol Tartrate 25 MG Tablet PO ×2 (04:26→21:18)
[2020-08-19] MEDS: Levothyroxine 88 MCG Tablet PO (04:26)
[2020-08-19 07:45] LABS: Absolute Lymphocyte Count 2.41 X10^3/uL (0.83-4.51); Basophil# 0.02 X10^3/uL; Basophil% 0.2 % (0-1); Eosinophil# 0.12 X10^3/uL; Hematocrit 42.3 % (37-47); Hemoglobin 13.1 g/dL (12.0-15.0); Lymphocyte # 2.41 X10^3/ul (0.83-4.51); Lymphocyte % 19.6 % (19-41); Mean Platelet Vol. 9.7 fl (6.2-12.0); Monocyte# 0.74 X10^3/uL; NRBC Flagged by Analyzer 0 % (0-5); Neutrophil # 8.96 X10^3/uL (2.7-7.7); Neutrophil % 72.7 % (47-70); Platelet Count 207 K/mm3 (150-450); RBC Distribution Width CV 17.5 % (11.6-14.6); RBC Distribution Width SD 62.6 fl (35.1-43.9); Red Blood Count 4.36 M/mm3 (4.2-5.4); White Blood Count 12.3 K/mm3 (4.4-11.0)
[2020-08-19] MEDS: Amiodarone 360 MG in Dextrose 5% Viaflo Bag 192.8 ML 16.7 MG CONT INF ×2 (08:21→21:17)
[2020-08-19 08:25] LABS: AST(SGOT) 220 U/L (15-37); Alanine Aminotransfer ALT/SGPT 450 U/L (13-56); Alkaline Phosphatase 182 U/L (45-117); Anion Gap 9 (5-15); BUN 59 mg/dL (7-18); BUN/Creat Ratio 31.6 RATIO (10-20); Calcium,Total 8.3 mg/dL (8.5-10.1); Chloride 95 mmol/L (98-107); Creatinine, Serum 1.87 mg/dL (0.55-1.02); EST Glomerular Filtration Rate 27 mL/min (>60); Est Glom Filt Rate - Afr Amer 33 mL/min (>60); Estimated Creatinine Clearance 18.86 ml/min; Globulin 3.1 g/dL (2.2-4.2); Glucose 109 mg/dL (74-106); Magnesium 2.5 mg/dL (1.6-2.6); Potassium 4.6 mmol/L (3.5-5.1); Protein, Total 6.1 g/dL (6.4-8.2); Sodium Level 128 mmol/L (136-145); T4 Free Direct 1.11 ng/dL (0.76-1.46)
[2020-08-19] MEDS: Vitamin B Comp W-C Capsule 1 CAP PO (08:26)
[2020-08-19] MEDS: Multivitamins,Ther W-Minerals Tablet 1 TABLET PO (08:26)
[2020-08-19] MEDS: Potassium Chloride Oral Tablet 20 MEQ PO ×2 (08:26→18:44)
[2020-08-19] MEDS: Aspirin E.C. 81 MG Tablet PO (08:26)
[2020-08-19] MEDS: Pantoprazole Sodium 40 MG Tablet PO (08:26)
[2020-08-19] MEDS: Omega-3 Acid Ethyl Esters 1 GM Capsule PO ×2 (08:28→21:19)
[2020-08-19] MEDS: Loratadine 10 MG Tablet 5 MG PO (08:29)
[2020-08-19] MEDS: APIXABAN 2.5 MG TABLET PO ×2 (08:29→21:18)
[2020-08-19] MEDS: Sertraline 50 MG Tablet PO (08:31)
[2020-08-19] MEDS: Sertraline 50 MG Tablet 25 MG PO (08:31)
[2020-08-19] MEDS: Furosemide 40 MG/4 ML Vial IV (08:55)
[2020-08-19] MEDS: 0.9% Saline Lock 10 ML Syringe IV ×2 (08:55→16:30)
--- NOTE | 2020-08-19 11:01 | CASEMGMT ---
According to the [facility] website, the following are in-network tertiary facilities: [facility], [place], [facility], [place], [facility], [facility], [place], [facility], and . Roscoe RIVERA CM
--- NOTE | 2020-08-19 11:14 | RAD_ITS ---
INDICATION: Respiratory distress EXAMINATION/TECHNIQUE: X-RAY - XR Chest 1 View COMPARISON: 08/17/2020 FINDINGS: Central pulmonary venous congestion. Tortuous and calcified vascular. The heart is borderline enlarged. Small bilateral pleural effusions with fluid seen tracking within the right major fissure. No acute osseous abnormalities. Degenerative changes of the thoracic spine. RAD/Chest 1 View (Portable) IMPRESSION: Borderline cardiomegaly with central pulmonary venous congestion and small bilateral pleural effusions. Electronically Signed: Jon Luna MD at 16:07 EDT Tel , Service support ,
[2020-08-19 11:35] LABS: Allen Test Positive; Base Excess -3 mmol/L (-2 to +2); Bicarbonate 21.9 mmol/L (22-26); Blood Gas Specimen Type ART; O2 Delivery Device Cannula; PO2 44 mmHG (75-100); SITE L Radial; SO2 81 % (95-99); Total Carbon Dioxide 23 mmol/L; pCO2 34.5 mmHg (35-45); pH 7.41 (7.35-7.45)
--- NOTE | 2020-08-19 15:24 | PN.CARD_ITS ---
Subjectve: It was evaluated earlier this day. Her main concern was her shortness of breath/dyspnea. It was noted on examination she did have inspiratory expiratory wheezing. Objective: Vital Signs Temp Pulse Resp BP Pulse Ox 97.0 F L 125 H 18 126/96 H 98 08/19/20 14:00 08/19/20 15:07 08/19/20 15:00 08/19/20 15:00 08/19/20 15:00 Oxygen Flow Rate (L/min) 4 Oxygen Delivery Method Nasal Cannula Weight: 154 lb 1.65 oz Body Mass Index (BMI) 27.3 Finger Stick Blood Glucose 182 Intake and Output for Last 24 Hours 08/17/20 08/18/20 08/19/20 23:59 23:59 23:59 Intake Total 1519.25 / 1521.75 764.34 / 781.04 625.97 / 625.97 Output Total 450 / 450 100 / 100 Balance 1519.25 / 1521.75 314.34 / 331.04 525.97 / 525.97 General: Awake, Alert, Cooperative, Ill Appearing HEENT: Atraumatic, Normocephalic, PERRL, EOMI, Sclera Non Icteric Neck: Supple, Good ROM, No JVD Lungs: Inspiratory Wheezes - Beto, Expiratory Wheezes-Beto Cardiovascular: Irregular Rhythm, Normal S1, Normal S2 Abdomen: Bowel Sounds Present, Soft Extremities: No edema Psych/Mental Status: Appropriate 08/19/20 06:50: WBC 12.3 H, RBC 4.36, Hgb 13.1, Hct 42.3, MCV 97.0, MCH 30.0, MCHC 31.0 L, Plt Count 207, MPV 9.7, Immature Gran % (Auto) 0.500, Neut % (Auto) 72.7 H, Lymph % (Auto) 19.6, [place] % (Auto) 6.0, Eos % (Auto) 1.0, Baso % (Auto) 0.2, Absolute Neuts (auto) 9.0 H, Nucleated RBC % 0 08/19/20 06:50: Sodium 128 L, Potassium 4.6, Chloride 95 L, Carbon Dioxide 24.0, Anion Gap 9, BUN 59 H, Creatinine 1.87 H, Est GFR (MDRD) Af Amer 33 L, Est GFR (MDRD) Non-Af 27 L, BUN/Creatinine Ratio 31.6 H, Glucose 109 H, Calcium 8.3 L, Magnesium 2.5, Total Bilirubin 1.30 H 08/19/20 11:28: pH 7.41, Bicarbonate Actual 21.9 L, Base Excess -3 L, O2 Saturation 81 L, ABG pCO2 34.5 L, ABG pO2 44 L, Oscar Test Positive Rhythm: Atrial fibrillation Medical Necessity - Tobacco Use Smoking Status: Never smoker Assessment/Plan 1. Atrial fibrillation with RVR The patient presents back with atrial fibrillation with RVR. She has been evaluated in the past for this and undergone multiple medical attempts and synchronized biphasic DC cardioversion. She is pending upcoming [facility] EP evaluation for AV node ablation with permanent pacemaker support. In the interim she will continue rate control therapy and anticoagulant therapy as best as possible. 2. Acute on chronic CHF-diastolic At the present time there is still concerns of acute on chronic CHF which was thought to be diastolic mediated. Her oral diuretics will be discontinued. She will be placed on IV furosemide diuretic therapy. This will initially be a pulsed dose therapy. If she does not respond to this then perhaps she will require IV continuous furosemide therapy. The goal is to improve her volume status to improve her overall respiratory status and hopefully to allow her to eventually undergo her AV node ablation and permanent pacemaker placement. 3. CAD status post PCI She underwent PCI in July 2019 as previously noted. She has been on medical management. As noted above her antiplatelet therapy will be discontinued as she is now 1 year out from her PCI. Continuing her aspirin therapy and her anticoagulant therapy. 4. Hyperlipidemia She will continue risk factor evaluation care as deemed appropriate. 5. Hypertension Her blood pressure can be followed with her medicines adjusted as necessary. Comment: Overall, the concern is, that was continued atrial fibrillation that she has acute on chronic CHF as noted above requiring not only rate control therapy but diuretic therapy. Hopefully she can be stabilized to a point where she can have overall improvement in her respiratory status that she can proceed with future tertiary care center AV node ablation/permanent pacemaker placement- for which she has been evaluated and scheduled for at [facility] enter. The patient's case has been discussed and reviewed with Dr. Davey. This note was generated using a voice recognition system and there may be incorrect words, spelling or punctuation that were not noted when reviewing the office note prior to saving.
[2020-08-19] MEDS: Furosemide 500 MG in Empty Viaflex 50 mL 1 EACH CONT INF (16:30)
--- NOTE | 2020-08-19 17:36 | PCM.PN.HOSP ---
Patient Problems: Active and Suspected Problems (Last Reviewed 08/17/20 @ 22:06 by Tiesha Rea, COLLATOR-C) Atrial fibrillation with RVR (Acute) Elevated liver enzymes (Acute) Acute congestive heart failure (Acute) Bilateral pleural effusion (Acute) Weakness (Acute) Reason for Visit: Follow-up for Ravindra varghese with RVR, acute respiratory distress, acute hypoxic respiratory failure and hypotension in the morning Objective: And is tachycardic. On secured entrance monitor, sinus tachycardia with heart rate varying from 110 to 140/min. Patient also very short of breath, wheezing and tachypneic. Patient required 4 L of oxygen and DuoNeb.. Physical exam General: drowsy in the morning but later on awake, answer simple questions HEENT: Atraumatic, PERRLA, EOMI, Normocephalic Oral: No Gingival or Mucosal Lesions/ Ulcerations Neck: Supple, No JVD, Negative Carotid Bruits Lungs: Air entry diminished in bilateral lungs. Bilateral wheezing and expiratory rhonchi. Cardiovascular: Sinus tachycardia with PVCs normal S1, Normal S2, No murmurs Abdomen: Bowel Sounds Present, Soft, Non Tender, Non-Distended : No renal angle tenderness. No suprapubic tenderness. Extremities: bilateral lower leg edema, Capillary Refill Less than 3 Seconds Skin: No rashes, No breakdown Musculoskeletal: No Tenderness to Palpation of Joints or Extremities Neurological: Cranial nerves II-XII grossly intact, no focal neurological deficit Psych/Mental Status: Flat affect. Vitals/I&O's: Vital Signs Temp Pulse Resp BP Pulse Ox 97.3 F L 132 H 19 H 115/78 93 08/19/20 16:00 08/19/20 17:00 08/19/20 17:00 08/19/20 17:00 08/19/20 17:00 Oxygen Flow Rate (L/min) 5 Oxygen Delivery Method Nasal Cannula Weight: 154 lb 1.65 oz Body Mass Index (BMI) 27.3 Finger Stick Blood Glucose 182 Intake and Output for Last 24 Hours 08/17/20 08/18/20 08/19/20 23:59 23:59 23:59 Intake Total 1519.25 / 1521.75 764.34 / 781.04 659.37 / 659.37 Output Total 450 / 450 100 / 100 Balance 1519.25 / 1521.75 314.34 / 331.04 559.37 / 559.37 Laboratory Results 08/19/20 06:50: WBC 12.3 H, RBC 4.36, Hgb 13.1, Hct 42.3, MCV 97.0, MCH 30.0, MCHC 31.0 L, RDW Std Deviation 62.6 H, RDW Coeff of Brian 17.5 H, Plt Count 207, MPV 9.7, Immature Gran % (Auto) 0.500, Neut % (Auto) 72.7 H, Lymph % (Auto) 19.6, [place] % (Auto) 6.0, Eos % (Auto) 1.0, Baso % (Auto) 0.2, Absolute Neuts (auto) 9.0 H, Absolute Lymphs (auto) 2.41, Nucleated RBC % 0 08/19/20 06:50: Sodium 128 L, Potassium 4.6, Chloride 95 L, Carbon Dioxide 24.0, Anion Gap 9, BUN 59 H, Creatinine 1.87 H, Estim Creat Clear Calc 18.86, Est GFR (MDRD) Af Amer 33 L, Est GFR (MDRD) Non-Af 27 L, BUN/Creatinine Ratio 31.6 H, Glucose 109 H, Calcium 8.3 L, Magnesium 2.5, Total Bilirubin 1.30 H, AST 220 H, ALT 450 H, Alkaline Phosphatase 182 H, Total Protein 6.1 L, Albumin 3.0 L, Globulin 3.1, Albumin/Globulin Ratio 1.0, Free T4 1.11 08/19/20 11:28: Specimen Type ART, Sample Site L Radial, pH 7.41, Bicarbonate Actual 21.9 L, Total CO2 23, Base Excess -3 L, O2 Saturation 81 L, ABG pCO2 34.5 L, ABG pO2 44 L, Oscar Test Positive, O2 Delivery Device Cannula, Liter Flow 4.0 Current Medications Acetaminophen (Acetaminophen 325 Mg Tablet) 650 mg PO Q6H PRN PRN PRN Reason: Pain Score 1-10/Temp > 100.7 F Last Admin: 08/18/20 05:32 Dose: 650 mg Documented by: Apixaban (Apixaban 2.5 Mg Tablet) 2.5 mg PO BID ROBERT Last Admin: 08/19/20 08:29 Dose: 2.5 mg Documented by: Aspirin (Aspirin E.C. 81 Mg Tablet) 81 mg PO DAILY@0800 [facility] Last Admin: 08/19/20 08:26 Dose: 81 mg Documented by: Atorvastatin Calcium (Atorvastatin Calcium 40 Mg Tablet) 40 mg PO DAILY@2200 [facility] Last Admin: 08/18/20 22:34 Dose: 40 mg Documented by: Gabapentin (Gabapentin 600 Mg Tablet) 600 mg PO QHS [facility] Last Admin: 08/18/20 22:34 Dose: 600 mg Documented by: Gabapentin (Gabapentin 600 Mg Tablet) 600 mg PO LUNCH [facility] Last Admin: 08/19/20 12:10 Dose: Not Given Documented by: Hydrochlorothiazide (Hydrochlorothiazide 25 Mg Tablet) 25 mg PO DAILY [facility] Last Admin: 08/19/20 11:18 Dose: Not Given Documented by: Sodium Chloride () 250 mls @ 15 mls/hr IV .[id number] PRN PRN Reason: Saline Flush Sodium Chloride () 250 mls @ 15 mls/hr IV .[id number] PRN PRN Reason: Additional IVPB Infusion Amiodarone HCl 360 mg/ (Dextrose) 200 mls @ 16.667 mls/hr CONT INF .Q12H [facility] Last Infusion: 08/19/20 17:00 Dose: 0.5 mg/min, 16.7 mls/hr Documented by: Furosemide 500 mg/ N/A 50 mls @ 1 mls/hr CONT INF .Q50H [facility] Last Admin: 08/19/20 16:30 Dose: 10 mg/hr, 1 mls/hr Documented by: Levothyroxine Sodium (Levothyroxine 88 Mcg Tablet) 88 mcg PO DAILY@0600 [facility] Last Admin: 08/19/20 04:26 Dose: 88 mcg Documented by: Loratadine (Loratadine 10 Mg Tablet) 5 mg PO DAILY [facility] Last Admin: 08/19/20 08:29 Dose: 5 mg Documented by: Morphine Sulfate (Morphine 2 Mg/Ml Syringe) 2 - 4 mg IV Q3H PRN PRN PRN Reason: Pain Score 6-10 Morphine Sulfate (Morphine 4 Mg/Ml Syringe) 2 - 4 mg IV Q3H PRN PRN PRN Reason: Pain Score 6-10 Multivitamins (Vitamin B Comp W-C Capsule) 1 capsule PO DAILY [facility] Last Admin: 08/19/20 08:26 Dose: 1 capsule Documented by: Multivitamins/Minerals ([facility]ivitamins,Ther [facility]inerals [facility]) [facility] Last Admin: 08/19/20 08:26 Dose: 1 tablet Documented by: Nitroglycerin (Nitroglycerin (Inpatient Use) 0.4 Mg Tab.Subl) 0.4 mg SL Q5M PRN PRN Reason: CARDIAC/CHEST PAIN Yctvl-5-Upbe Ethyl Esters ([place]-3 Acid Ethyl Esters 1 Gm Capsule) 1 gm PO BID [facility] Last Admin: 08/19/20 08:28 Dose: 1 gm Documented by: Ondansetron HCl (Ondansetron 4 Mg/2 Ml Vial) 4 mg IV Q8H PRN PRN PRN Reason: NAUSEA/VOMITING Pantoprazole Sodium (Pantoprazole Sodium 40 Mg Tablet) 40 mg PO DAILY [facility] Last Admin: 08/19/20 08:26 Dose: 40 mg Documented by: Potassium Chloride (Potassium Chloride Oral Tablet 20 Meq) [facility] Last Admin: 08/19/20 08:26 Dose: 20 meq Documented by: Pramipexole Dihydrochloride (Pramipexole Di-Hcl 0.25 Mg Tablet) 0.25 mg PO BID PRN PRN PRN Reason: SCIATICA Sertraline HCl (Sertraline 50 Mg Tablet) 50 mg PO DAILY [facility] Last Admin: 08/19/20 08:31 Dose: 50 mg Documented by: Sertraline HCl (Sertraline 50 Mg Tablet) 25 mg PO DAILY [facility] Last Admin: 08/19/20 08:31 Dose: 25 mg Documented by: Sodium Chloride (0.9% Saline Lock 10 Ml Syringe) 10 - 40 ml IV UD PRN PRN Reason: SALINE FLUSH Last Admin: 08/19/20 16:30 Dose: 10 ml Documented by: Trazodone HCl (Trazodone 50 Mg Tablet) 50 mg PO QHS PRN PRN Reason: SLEEP Last Admin: 08/17/20 23:42 Dose: 50 mg Documented by: Zolpidem Tartrate (Zolpidem Tartrate 5 Mg Tablet) 5 mg PO QHS PRN PRN PRN Reason: INSOMNIA Last Admin: 08/18/20 22:34 Dose: 5 mg Documented by: STROKE Vital Signs/Narrative: Vital Signs Temp Pulse Resp BP Pulse Ox 08/19/20 17:00 132 H 19 H 115/78 93 08/19/20 16:00 97.3 F L 128 H 16 115/78 93 08/19/20 15:07 125 H 08/19/20 15:00 126 H 18 126/96 H 98 08/19/20 14:00 97.0 F L 110 H 16 90/70 98 Medical Necessity - Tobacco Use Smoking Status: Never smoker Assessment/Plan All Active Problems (Last Reviewed 08/17/20 @ 22:06 by Tiesha Rea, COLLATOR-C) Atrial fibrillation with RVR (Acute) Elevated liver enzymes (Acute) Acute congestive heart failure (Acute) Bilateral pleural effusion (Acute) Hypoxemia (Acute) Weakness (Acute) Shortness of breath (Acute) NSTEMI (non-ST elevated myocardial infarction) (Resolved) This is a 84-year-old female who initially presented to ER with generalized weakness and found to be A. fib RVR, cholelithiasis 1. Atrial fibrillation with RVR coronary artery disease with recent PCI: Patient is being admitted in PCU. She did not respond to Cardizem bolus and drip therefore changed to amiodarone IV drip. On metoprolol. Heart rate currently around 100. TSH elevated 10.4, serum magnesium 2.5, phosphorus 3.8. K4.3. Serum sodium 126. She had successful PTCA/LIZBETH to left circumflex in July 2019. She failed multiple multiple medical attempts and synchronized DC cardioversion and is due for upcoming [facility] EP evaluation for AV node ablation and permanent pacemaker. Patient on aspirin, Eliquis, amiodarone drip, atorvastatin, Plavix, and losartan. 08/19: Patient heart rate is still not controlled, sinus tachycardia with PVCs about 140/min. Patient on IV amiodarone. Eliquis 2.5 mg twice daily. Currently in sinus tachycardia but patient placed back to A. fib. Patient failed medical treatment for A. fib with RVR as she dropped blood pressure on Cardizem drip and metoprolol. I called [facility] transfer line and Clinical information for transfer for surgical treatment, AV belle ablation pacemaker for review with RVR. 2. Chronic calculus cholelithiasis: Patient does not have abdominal pain or tenderness. ALT AST elevated as compared to June 21. Alkaline phosphatase 213. Liver enzymes are trending down. Total bili 1.4. Gallbladder ultrasound shows GB wall 6 mm with negative sonographic Ocasio sign. Monitor liver chemistry test. 08/19: Patient does not have abdominal pain or tenderness. Liver chemistry is improving. 3. Acute hypoxic respiratory failure secondary to acute on chronic diastolic heart failure secondary to A. fib with RVR: Heart failure core measures including intake and output, fluid restriction less than 1500 mL, daily weight monitoring, kidney and electrolytes monitoring. On Lasix rest as mentioned above 08/19: Patient on 4 L of oxygen. Mild hypotension due to diuretic. Bronchodilator given. Chest x-ray was done which shows central pulmonary venous congestion and small bilateral pleural effusion. Started on Lasix drip. Earlier patient dropped blood pressure in the morning after giving metoprolol. Blood gas was done but unfortunately it was venous. 7.41/30/40/23. Patient does not have respiratory or metabolic acidosis. 4. Hypothyroidism: Dose of Synthroid increased. TSH elevated. Free T4 tomorrow a.m. 5. Generalized weakness, decreased ADL -PT OT to eval and treat 6. Pure hypercholesterolemia -Continue home medication regimen 7. ALVERTO on CPAP CPAP while inpatient 8. Essential hypertension -Continue current home medication regimen 9. Long-term current use of anticoagulant -Eliquis and Plavix DVT prophylaxis-not indicated patient chronically anticoagulated with Eliquis and Plavix Total time of the visit including total time spent in counseling or coordination of care, (more than 50% of the total time, spent in obtaining medical information from nurses and other ancillary care providers,explaining to the patient about labs, imaging, diagnosis and management), question with property consultant and transfer line, review of labs and imaging is 30 minutes. Clinical Impression(s) from Imaging Studies Brain CT 08/17/20 18:57 IMPRESSION: No acute intracranial abnormality. Chronic involutional and ischemic changes of the brain. Right maxillary and sphenoid sinusitis. Electronically Signed: Jon Luna MD at 20:06 EDT Tel , Service support , Chest X-Ray 08/17/20 19:00 IMPRESSION: Incomplete expansion of the lungs. Probable atelectasis in the medial posterior left lung base. Electronically Signed: Siddharth Jason MD at 19:42 EDT , Service support , Abdomen/Pelvis CT 08/17/20 19:51 IMPRESSION: 1. Bilateral pleural effusions and atelectasis or infiltrate in the lung bases. 2. Mild ascites. 3. Cholelithiasis. 4. Evaluation of the GI tract is limited, and segments of bowel wall thickening are not excluded. Gallbladder Ultrasound 08/17/20 22:13 IMPRESSION: Mild ascites. Right-sided pleural effusion. Multiple gallstones with thickening of gallbladder wall up to 6 mm. Cannot entirely exclude acute cholecystitis. Follow-up recommended with HIDA scan if clinically indicated. Inpatient E&M: [id number] Subs Hosp L3
--- NOTE | 2020-08-19 17:45 | PCM.DC.SUM ---
Discharge Date and Diagnosis - Problem List Patient Problems: Active and Suspected Problems (Last Reviewed 08/17/20 @ 22:06 by BLANCO Hou) Atrial fibrillation with RVR (Acute) Elevated liver enzymes (Acute) Acute congestive heart failure (Acute) Bilateral pleural effusion (Acute) Weakness (Acute) Date of Admission: 08/17/20 Date of Discharge: 08/19/20 - Primary Discharge Diagnosis Acute Problems: Active Problems (Last Reviewed 08/17/20 @ 22:06 by BLANCO Hou) Atrial fibrillation with RVR (Acute) Elevated liver enzymes (Acute) Acute congestive heart failure (Acute) Bilateral pleural effusion (Acute) Weakness (Acute) - Secondary Discharge Diagnosis Chronic Problems: Chronic Problems (Last Reviewed 08/17/20 @ 22:06 by BLANCO Hou) 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) Pure hypercholesterolemia (Chronic) ALVERTO on CPAP (Chronic) Essential hypertension (Chronic) Atherosclerotic heart disease of [place] coronary artery without angina pectoris (Chronic) Presence of stent in coronary artery (Chronic ~08/20/19) Successful PTCA/LIZBETH to LCX per cath 08/20/19; PCI/LIZBETH to mid LAD 01/15/09; PCI/BMS to prox LAD 08/20/07 Atrial fibrillation status post cardioversion (Chronic) Hospital Course and Treatment Imaging Results: 08/19/20 11:14 CXR [Chest 1 View (Portable)] [RAD] Urgent Operations: None Summary of Care Provided: [] This is a 84-year-old female who initially presented to ER with generalized weakness and found to be A. fib RVR, cholelithiasis 1. Atrial fibrillation with RVR coronary artery disease with recent PCI: Patient is being admitted in PCU. She did not respond to Cardizem bolus and drip therefore changed to amiodarone IV drip. On metoprolol. Heart rate currently around 100. TSH elevated 10.4, serum magnesium 2.5, phosphorus 3.8. K4.3. Serum sodium 126. She had successful PTCA/LIZBETH to left circumflex in July 2019. She failed multiple multiple medical attempts and synchronized DC cardioversion and is due for upcoming [facility] EP evaluation for AV node ablation and permanent pacemaker. Patient on aspirin, Eliquis, amiodarone drip, atorvastatin, Plavix, and losartan. Patient heart rate is still not controlled, sinus tachycardia with PVCs about 140/min. Patient on IV amiodarone drip. Eliquis 2.5 mg twice daily. Currently in sinus tachycardia but patient placed back to [facility]. Patient failed medical treatment for A. fib with RVR as she dropped blood pressure on Cardizem drip and metoprolol. I called [facility] transfer line and Clinical information for transfer for surgical treatment, AV belle ablation pacemaker for A. fib with RVR. Patient accepted by Dr. Harshal Kelley hospitalist. 2. Chronic calculus cholelithiasis: Patient does not have abdominal pain or tenderness. ALT AST elevated as compared to June 21. Alkaline phosphatase 213. Liver enzymes are trending down. Total bili 1.4. Gallbladder ultrasound shows GB wall 6 mm with negative sonographic Ocasio sign. Monitor liver chemistry test. Patient does not have abdominal pain or tenderness. Liver chemistry is improving. 3. Acute hypoxic respiratory failure secondary to acute on chronic diastolic heart failure secondary to A. fib with RVR: Heart failure core measures including intake and output, fluid restriction less than 1500 mL, daily weight monitoring, kidney and electrolytes monitoring. On Lasix rest as mentioned above On 08/20 patient on 4 L of oxygen. Mild hypotension due to diuretic. Bronchodilator given. Chest x-ray was done which shows central pulmonary venous congestion and small bilateral pleural effusion. Started on Lasix drip. Earlier patient dropped blood pressure in the morning after giving metoprolol. Blood gas was done but unfortunately it was venous. 7.41/30/40/23. Patient does not have respiratory or metabolic acidosis. Blood pressure improved with IV diuresis, Lasix drip 4. Hypothyroidism: Dose of Synthroid increased. TSH elevated. Free T4 normal 5. Generalized weakness, decreased ADL -PT OT to eval and treat 6. Pure hypercholesterolemia -Continue home medication regimen 7. ALVERTO on CPAP CPAP while inpatient 8. Essential hypertension -Continue current home medication regimen 9. Long-term current use of anticoagulant -Eliquis and Plavix DVT prophylaxis-not indicated patient chronically anticoagulated with Eliquis and Plavix Patient transferred to [facility]. Total time spent, exact 35 minutes on discharge meds reconciliation, examination, discussion exchange of clinical information on office service coordinator, coordination of care with nurses and ancillary staff, review of imaging and blood test and discussion with the patient on follow-up instructions Patient Problems: Active and Suspected Problems (Last Reviewed 08/17/20 @ 22:06 by Tiesha Rea NP-C) Atrial fibrillation with RVR (Acute) Elevated liver enzymes (Acute) Acute congestive heart failure (Acute) Bilateral pleural effusion (Acute) Weakness (Acute) Objective: Please see progress note of the same date Patient was short of breath in the morning and breathing stabilized. Remains tachycardic but blood pressure improved. - Physical Exam Vitals/I&O's: Vital Signs Temp Pulse Resp BP Pulse Ox 97.3 F L 132 H 19 H 115/78 93 08/19/20 16:00 08/19/20 17:00 08/19/20 17:00 08/19/20 17:00 08/19/20 17:00 Oxygen Flow Rate (L/min) 5 Oxygen Delivery Method Nasal Cannula Weight: 154 lb 1.65 oz Body Mass Index (BMI) 27.3 Finger Stick Blood Glucose 182 Intake and Output for Last 24 Hours 08/17/20 08/18/20 08/19/20 23:59 23:59 23:59 Intake Total 1519.25 / 1521.75 764.34 / 781.04 659.37 / 659.37 Output Total 450 / 450 100 / 100 Balance 1519.25 / 1521.75 314.34 / 331.04 559.37 / 559.37 Laboratory Results 08/19/20 06:50: WBC 12.3 H, RBC 4.36, Hgb 13.1, Hct 42.3, MCV 97.0, MCH 30.0, MCHC 31.0 L, RDW Std Deviation 62.6 H, RDW Coeff of Brian 17.5 H, Plt Count 207, MPV 9.7, Immature Gran % (Auto) 0.500, Neut % (Auto) 72.7 H, Lymph % (Auto) 19.6, Pope % (Auto) 6.0, Eos % (Auto) 1.0, Baso % (Auto) 0.2, Absolute Neuts (auto) 9.0 H, Absolute Lymphs (auto) 2.41, Nucleated RBC % 0 08/19/20 06:50: Sodium 128 L, Potassium 4.6, Chloride 95 L, Carbon Dioxide 24.0, Anion Gap 9, BUN 59 H, Creatinine 1.87 H, Estim Creat Clear Calc 18.86, Est GFR (MDRD) Af Amer 33 L, Est GFR (MDRD) Non-Af 27 L, BUN/Creatinine Ratio 31.6 H, Glucose 109 H, Calcium 8.3 L, Magnesium 2.5, Total Bilirubin 1.30 H, AST 220 H, ALT 450 H, Alkaline Phosphatase 182 H, Total Protein 6.1 L, Albumin 3.0 L, Globulin 3.1, Albumin/Globulin Ratio 1.0, Free T4 1.11 08/19/20 11:28: Specimen Type ART, Sample Site L Radial, pH 7.41, Bicarbonate Actual 21.9 L, Total CO2 23, Base Excess -3 L, O2 Saturation 81 L, ABG pCO2 34.5 L, ABG pO2 44 L, Oscar Test Positive, O2 Delivery Device Cannula, Liter Flow 4.0 Current Medications Acetaminophen (Acetaminophen 325 Mg Tablet) 650 mg PO Q6H PRN PRN PRN Reason: Pain Score 1-10/Temp > 100.7 F Last Admin: 08/18/20 05:32 Dose: 650 mg Documented by: Apixaban (Apixaban 2.5 Mg Tablet) 2.5 mg PO BID COUNT INCLUDES THE [facility] Last Admin: 08/19/20 08:29 Dose: 2.5 mg Documented by: Aspirin (Aspirin E.C. 81 Mg Tablet) 81 mg PO DAILY@0800 COUNT INCLUDES THE [facility] Last Admin: 08/19/20 08:26 Dose: 81 mg Documented by: Atorvastatin Calcium (Atorvastatin Calcium 40 Mg Tablet) 40 mg PO DAILY@2200 COUNT INCLUDES THE [facility] Last Admin: 08/18/20 22:34 Dose: 40 mg Documented by: Gabapentin (Gabapentin 600 Mg Tablet) 600 mg PO QHS COUNT INCLUDES THE [facility] Last Admin: 08/18/20 22:34 Dose: 600 mg Documented by: Gabapentin (Gabapentin 600 Mg Tablet) 600 mg PO LUNCH COUNT INCLUDES THE [facility] Last Admin: 08/19/20 12:10 Dose: Not Given Documented by: Hydrochlorothiazide (Hydrochlorothiazide 25 Mg Tablet) 25 mg PO DAILY COUNT INCLUDES THE [facility] Last Admin: 08/19/20 11:18 Dose: Not Given Documented by: Sodium Chloride () 250 mls @ 15 mls/hr IV .[id number] PRN PRN Reason: Saline Flush Sodium Chloride () 250 mls @ 15 mls/hr IV .[id number] PRN PRN Reason: Additional IVPB Infusion Amiodarone HCl 360 mg/ (Dextrose) 200 mls @ 16.667 mls/hr CONT INF .Q12H COUNT INCLUDES THE [facility] Last Infusion: 08/19/20 17:00 Dose: 0.5 mg/min, 16.7 mls/hr Documented by: Furosemide 500 mg/ N/A 50 mls @ 1 mls/hr CONT INF .Q50H COUNT INCLUDES THE [facility] Last Admin: 08/19/20 16:30 Dose: 10 mg/hr, 1 mls/hr Documented by: Levothyroxine Sodium (Levothyroxine 88 Mcg Tablet) 88 mcg PO DAILY@0600 COUNT INCLUDES THE [facility] Last Admin: 08/19/20 04:26 Dose: 88 mcg Documented by: Loratadine (Loratadine 10 Mg Tablet) 5 mg PO DAILY COUNT INCLUDES THE [facility] Last Admin: 08/19/20 08:29 Dose: 5 mg Documented by: Morphine Sulfate (Morphine 2 Mg/Ml Syringe) 2 - 4 mg IV Q3H PRN PRN PRN Reason: Pain Score 6-10 Morphine Sulfate (Morphine 4 Mg/Ml Syringe) 2 - 4 mg IV Q3H PRN PRN PRN Reason: Pain Score 6-10 Multivitamins (Vitamin B Comp W-C Capsule) 1 capsule PO DAILY COUNT INCLUDES THE [facility] Last Admin: 08/19/20 08:26 Dose: 1 capsule Documented by: Multivitamins/Minerals (Multivitamins,Ther [facility]inerals [facility]) [facility] Last Admin: 08/19/20 08:26 Dose: 1 tablet Documented by: Nitroglycerin (Nitroglycerin (Inpatient Use) 0.4 Mg Tab.Subl) 0.4 mg SL Q5M PRN PRN Reason: CARDIAC/CHEST PAIN Cysov-6-Zclh Ethyl Esters ([place]-3 Acid Ethyl Esters 1 Gm Capsule) 1 gm PO BID COUNT INCLUDES THE [facility] Last Admin: 08/19/20 08:28 Dose: 1 gm Documented by: Ondansetron HCl (Ondansetron 4 Mg/2 Ml Vial) 4 mg IV Q8H PRN PRN PRN Reason: NAUSEA/VOMITING Pantoprazole Sodium (Pantoprazole Sodium 40 Mg Tablet) 40 mg PO DAILY COUNT INCLUDES THE [facility] Last Admin: 08/19/20 08:26 Dose: 40 mg Documented by: Potassium Chloride (Potassium Chloride Oral Tablet 20 Meq) [facility] Last Admin: 08/19/20 08:26 Dose: 20 meq Documented by: Pramipexole Dihydrochloride (Pramipexole Di-Hcl 0.25 Mg Tablet) 0.25 mg PO BID PRN PRN PRN Reason: SCIATICA Sertraline HCl (Sertraline 50 Mg Tablet) 50 mg PO DAILY ROBERT Last Admin: 08/19/20 08:31 Dose: 50 mg Documented by: Sertraline HCl (Sertraline 50 Mg Tablet) 25 mg PO DAILY ROBERT Last Admin: 08/19/20 08:31 Dose: 25 mg Documented by: Sodium Chloride (0.9% Saline Lock 10 Ml Syringe) 10 - 40 ml IV UD PRN PRN Reason: SALINE FLUSH Last Admin: 08/19/20 16:30 Dose: 10 ml Documented by: Trazodone HCl (Trazodone 50 Mg Tablet) 50 mg PO QHS PRN PRN Reason: SLEEP Last Admin: 08/17/20 23:42 Dose: 50 mg Documented by: Zolpidem Tartrate (Zolpidem Tartrate 5 Mg Tablet) 5 mg PO QHS PRN PRN PRN Reason: INSOMNIA Last Admin: 08/18/20 22:34 Dose: 5 mg Documented by: Home Medications: Medications to take at Discharge Atorvastatin Calcium 40 mg PO DAILY 08/19/19 Clopidogrel Bisulfate [Clopidogrel] 75 mg PO DAILY 08/19/19 Gabapentin [Neurontin] 600 mg PO LUNCH 08/19/19 Gabapentin [Neurontin] 600 mg PO QHS 08/19/19 Losartan Potassium 50 mg PO BID 08/19/19 Pramipexole Di-HCl [Mirapex] 0.25 mg PO BID PRN PRN 08/19/19 Aspirin E.C. [Ecotrin] 81 mg PO DAILY@0800 tab 08/21/19 trazodone 50 mg tablet 50 mg PO QHS PRN 12/30/19 Calcium Carbonate/Vitamin D3 [Calcium 600-Vit D3 200 Tablet] 1 tab PO DAILY 05/05/20 Dicyclomine HCl [Bentyl] 10 mg PO ACHS PRN 05/05/20 Fexofenadine HCl [Ratna Allergy] 60 mg PO DAILY 05/05/20 Flaxseed Oil 1,000 mg PO DAILY 05/05/20 Multivit-Min/FA/Lycopen/Lutein [Centrum Silver Tablet] 1 tab PO DAILY 05/05/20 Nitroglycerin SL (ED ONLY) [Nitrostat] 0.4 mg SL X1 05/05/20 [place]-3 Fatty Acids/Fish Oil [[place]dale 3 1,000 mg Softgel] 1 ea PO BID 05/05/20 Pantoprazole Sodium [Protonix] 40 mg PO DAILY 05/05/20 Sertraline HCl [Zoloft] 25 mg PO DAILY 05/05/20 Vitamin B Complex [B Complex] 1 tab PO DAILY 05/05/20 Melatonin 10 mg PO PRN PRN 05/06/20 amlodipine 2.5 mg tablet 2.5 mg PO DAILY #90 tab 06/01/20 apixaban 2.5 mg tablet 2.5 mg PO BID #180 tab 07/01/20 furosemide 40 mg tablet 40 mg PO BID #180 tab 07/01/20 potassium chloride 20 mEq tablet,extended release(part/cryst) 20 meq PO BID #180 tab 07/01/20 isosorbide mononitrate 60 mg tablet,extended release 24 hr 60 mg PO DAILY 07/08/20 famotidine 20 mg tablet 20 mg PO QHS PRN 08/07/20 hydrochlorothiazide 25 mg tablet 25 mg PO DAILY 08/07/20 levothyroxine 50 mcg tablet 50 mcg PO DAILY 08/07/20 metoprolol tartrate 50 mg tablet 75 mg PO BID tablet 08/10/20 Hydrocodone/Acetaminophen [Hydrocodon-Acetaminophen 5-325] 1 tablet PO BID PRN 08/17/20 Sertraline HCl 50 mg PO DAILY 08/17/20 Primary Care Physician: Gladys Pickett MD [Primary Care Provider] - Medical Necessity - Tobacco Use Smoking Status: Never smoker Meaningful Use Info Meaningful Use Diagnoses (Choose all that apply): None applicable Please cancel the billing charge of progress note on the same date 08/19/2020 Inpatient E&M: [id number] Disch Hosp
[2020-08-19] MEDS: Atorvastatin Calcium 40 MG Tablet PO (21:18)
[2020-08-19] MEDS: guaiFENesin 1,200 MG Tablet 1200 MG PO (21:18)
[2020-08-19] MEDS: Gabapentin 600 MG Tablet PO (21:18)
--- NOTE | 2020-08-19 22:23 | CPS ---
pt refuses to wear hospital cpap
--- NOTE | 2020-08-19 22:25 | CPS ---
pt is too short of breath to do breathing exercises.
--- NOTE | 2020-08-19 23:40 | NURSING ---
Gave report to medic from physicians. Pt will be leaving [facility] shortly w/ belongings for [facility]. Report called to NICLOE Motley at [facility]. Daughter Ciera also updated on pt status. NICOLE Rodriguez.
== END 2020-08-19 23:55 | disposition short-term general hospital (02) | DRG 308 ==
LOC: ED 19:17 → PCU 22:56
PROVIDERS: Nurse Practitioner Family; Admitting Provider Family Medicine; Emergency Provider Emergency Medicine; PCP Internal Medicine; Visit Provider Internal Medicine
DX: I48.20 Chronic atrial fibrillation, unspecified (principal); I50.33 Acute on chronic diastolic (congestive) heart failure; J96.01 Acute respiratory failure with hypoxia; N17.9 Acute kidney failure, unspecified; I95.9 Hypotension, unspecified; T50.2X5A Adverse effect of carbonic-anhydrase inhibitors, benzothiadiazides and other diuretics, initial encounter; I11.0 Hypertensive heart disease with heart failure; R41.0 Disorientation, unspecified; I25.10 Atherosclerotic heart disease of native coronary artery without angina pectoris; E11.40 Type 2 diabetes mellitus with diabetic neuropathy, unspecified; E03.9 Hypothyroidism, unspecified; E78.5 Hyperlipidemia, unspecified; E78.00 Pure hypercholesterolemia, unspecified; G47.33 Obstructive sleep apnea (adult) (pediatric); Z79.01 Long term (current) use of anticoagulants; Z79.02 Long term (current) use of antithrombotics/antiplatelets; Z79.82 Long term (current) use of aspirin; Z79.890 Hormone replacement therapy; Z79.899 Other long term (current) drug therapy; I25.2 Old myocardial infarction; Z95.5 Presence of coronary angioplasty implant and graft
CPT/HCPCS: 36415; 36600; 70450; 71045; 74176; 76705; 80053; 81001; 82248; 82803; 82962; 83690; 83735; 83880; 84100; 84439; 84443; 84484; 85025; 93005; 94640; 97162; 97166; 97530; 97535; 99285; J7030; J7040; A4216; J1940

== ENCOUNTER 2020-08-22 21:31 | Inpatient (IN) | payer MEDICARE, SELFPAY ==
[2019-12-09 08:37] VITALS: BMI 24.3
[2020-08-17 22:20] VITALS: BMI 27.3
[2020-08-22] VITALS (9 sets, daily range): BP systolic 132–147; BP diastolic 63–120; PULSE 90–94; RESP 12–32; TEMP 36.2–37; O2SAT 92–97; BMI 26.4; BMI 26.7; BMI 26.8
--- NOTE | 2020-08-22 21:41 | EKG12_ITS ---
Test Reason : SOB Blood Pressure : / mmHG Vent. Rate : 103 BPM Atrial Rate : 090 BPM P-R Int : 000 ms QRS Dur : 158 ms QT Int : 440 ms P-R-T Axes : 000 -63 094 degrees QTc Int : 576 ms Ventricular-paced rhythm with occasional atrial-paced complexes and Abnormal ECG Confirmed by CRISTOFER SOTO, JUSTINA ([id number]), videotape editor NEPTALI ORTIZ ([id number]) on 08/26/2020 8:33:28 AM Referred By: CECILIA Confirmed By:JUSTINA CLEVELAND MD
--- NOTE | 2020-08-22 21:44 | ED.VIS.GEN ---
History of Present Illness Chief Complaint: Shortness of Breath Informant: Patient Onset: Today Context: Gradual Onset Timing: Continuous Current Severity: Moderate Maximum Severity: Severe Narrative: Patient is an 84-year-old female presents to the emergency department shortness of breath. Patient does have a history of atrial fibrillation with rapid ventricular response, CHF, chronic pain, and behavioral disturbance. The patient was admitted here on Monday of last week with atrial fibrillation RVR. She was able to undergo rate control and was transferred to [facility]. She underwent pacemaker placement and cardiac ablation. She was discharged this morning. Since getting home she started to have gradual increasing shortness of breath. By the time that she called squad which is about half an hour ago, she does feel like she cannot breathe. On squad arrival, she was in the mid 80s. They tried nasal cannula and could only get her to the high 80s. She was placed on CPAP and brought in. She denies any chest pain. She denies any fevers or chills. She does feel like she cannot catch her breath. Prior similar symptoms: Yes Recent Illness/Hospitalization: Yes Past Medical History - Allergies and Home Meds Allergies/Adverse Reactions: Allergies enalaprilat [From Vasotec] Allergy (Verified 08/22/20 21:45) Other cough ezetimibe [From Zetia] Adverse Reaction (Verified 08/22/20 21:45) Other gi upset meperidine [From Demerol] Adverse Reaction (Verified 08/22/20 21:45) Nausea mirtazapine [From Remeron] Adverse Reaction (Verified 08/22/20 21:45) Other intolerance trazodone Adverse Reaction (Verified 08/22/20 21:45) Other dizziness zolpidem [From Ambien] Adverse Reaction (Verified 08/22/20 21:45) Other sleep walking issues Primary Care Physician: Gladys Pickett MD [Primary Care Provider] - Prior records reviewed: Yes Past Medical History: - - Atrial fibrillation, hypertension, congestive heart failure Surgical History: angioplasty - cardiac stent, last placed circa 2006 Smoking Status: Never smoker - Family History Maternal Family History: Family History (Last Reviewed 08/17/20 @ 22:06 by KOBE HouC) Father Heart disease Brother Diabetes Mother COPD (chronic obstructive pulmonary disease) Grandfather Heart disease Family History: Reports: COPD Paternal Family History: Family History (Last Reviewed 08/17/20 @ 22:06 by BLANCO Hou) Father Heart disease Brother Diabetes Mother COPD (chronic obstructive pulmonary disease) Grandfather Heart disease Family History: Reports: Heart Disease Review of Systems General: Denies: Chills, Fever, Sweats Eyes: Denies: Visual changes - bilaterally, Diplopia ENT: Denies: Rhinorrhea, Sore throat Cardiovascular: Reports: Palpitations. Denies: Chest pain Respiratory: Reports: Dyspnea, Cough. Denies: Dyspnea on exertion Gastrointestinal: Denies: Abdominal pain, Nausea, Vomiting, Diarrhea, Melena, Hematochezia Genitourinary: Denies: Dysuria, Hematuria, Frequency Musculoskeletal: Denies: Back pain, Extremity Pain Skin: Denies: Rash, Wounds Neurological: Denies: Headache, Weakness, Numbness Physical Exam Vital Signs/Narrative: Vital Signs Temp Pulse Resp BP Pulse Ox 08/22/20 21:38 91 30 H 134/63 H 95 08/22/20 21:31 97.2 F L 94 32 H 132/120 H 95 Inital Vital Signs reviewed: Yes General: Well nourished, Well developed, No Acute Distress Head: Normocephalic, Atraumatic Eyes: Perrl, EOMI ENT: Moist mucous membranes, No rhinorrhea Neck: Supple, Nontender Cardiovascular: Regular rate, Regular rhythm, No murmurs Respiratory: Chest nontender, Rales, Diminished, Retractions Abdomen: Soft, Nontender, Nondistended, Normal bowel sounds Back: Nontender, Normal Inspection Extremities: Nontender, No edema Skin: Normal color, No rash Neurological: Alert, Oriented x3, Cranial nerves II-XII grossly intact, Normal Strength, Normal Sensation Psychological: Normal affect, Normal Mood Diagnostic/Tx/Re-eval Chest X-Ray - ED: 1 View, Read by ED Physician, Normal, Mediastinum, Cardiomegaly, CHF - Rhythm Strip Rhythm Strip: PACED Rate: 90 Ectopy: PVC(s) - EKG Initial EKG Interpretation: Paced, Non-Specific ST Changes Prior: Changed - Medical Decision Making Patient presents with increasing shortness of breath status post pacemaker placement. She was hypoxic on arrival. With BiPAP, she did have improvement of aeration and is resting more comfortably. Patient was given sublingual nitro to decrease her preload. Chest x-ray is obtained. It does show evidence of cephalization with small effusions consistent with CHF exacerbation. Patient was given IV Lasix. Screening labs are relatively unremarkable. She does have a leukocytosis, but was recently hospitalized and had hypoxic respiratory failure. Chest x-ray read by both myself and the radiologist is consistent with CHF exacerbation. The patient's troponin is indeterminant. Her renal function has improved. She does have an elevated BNP. At this time, given her hypoxia and volume overload I do feel that she would benefit from admission for diuresis. Patient was discussed with the hospitalist. In review, the patient did recently have her Lasix decreased. She was also taken off of her hydrochlorothiazide. Impression 1. Hypoxic respiratory failure 2. CHF exacerbation with volume overload ED Disposition - Plan for ED Patient: Referrals: Gladys Pickett MD [Primary Care Provider] -
[2020-08-22] MEDS: Aspirin 81 MG TAB.CHEW 324 MG PO (21:49)
[2020-08-22 21:57] LABS: Absolute Lymphocyte Count 4.96 X10^3/uL (0.83-4.51); Basophil# 0.01 X10^3/uL; Basophil% 0.1 % (0-1); Eosinophil# 0.02 X10^3/uL; Eosinophils% 0.1 % (0-5); Hemoglobin 15.5 g/dL (12.0-15.0); Lymphocyte # 4.96 X10^3/ul (0.83-4.51); Lymphocyte % 30.9 % (19-41); Mean Corp Hgb Conc 30.4 g/dL (32-36); Mean Corpuscular Hgb 30.1 pg (27.0-32.0); Mean Platelet Vol. 9.6 fl (6.2-12.0); Monocyte# 0.92 X10^3/uL; Monocyte% 5.7 % (0-10); NRBC Flagged by Analyzer 0 % (0-5); Neutrophil # 10.03 X10^3/uL (2.7-7.7); Neutrophil % 62.6 % (47-70); POSITIVE MORPHOLOGY YES; Platelet Count 267 K/mm3 (150-450); RBC Distribution Width CV 17.9 % (11.6-14.6); RBC Distribution Width SD 65.6 fl (35.1-43.9); Red Blood Count 5.15 M/mm3 (4.2-5.4)
--- NOTE | 2020-08-22 22:00 | RAD_ITS ---
STUDY: X-RAY CHEST REASON FOR EXAM: Female, 84 years old. chest pain TECHNIQUE: Single frontal view of the chest. COMPARISON: 08/19/2020 FINDINGS: New unipolar pacer on the left. No pneumothorax. Right greater than left interstitial infiltrates unchanged. There is no demonstrated pleural abnormality. Normal size heart. Normal mediastinum and yolanda. Normal visualized pulmonary arteries. Normal visualized aortic arch and descending thoracic aorta. Normal visualized thoracic spine. Normal visualized ribs, clavicles, and shoulders. There is no demonstrated abnormality of the visualized soft tissue structures of the upper abdomen. RAD/Chest 1 View (Portable) IMPRESSION: New pacer left. No pneumothorax. Stable infiltrates. Electronically Signed: Endy Metcalf MD at 22:57 EDT , Service support ,
[2020-08-22 22:14] LABS: International Normalized Ratio 1.3; Prothrombin Time (Protime)PT. 15.2 SECONDS (11.7-14.9)
[2020-08-22 22:16] LABS: Anion Gap 9 (5-15); BUN 26 mg/dL (7-18); BUN/Creat Ratio 19.5 RATIO (10-20); Calcium,Total 9.1 mg/dL (8.5-10.1); Chloride 99 mmol/L (98-107); Creatinine, Serum 1.33 mg/dL (0.55-1.02); EST Glomerular Filtration Rate 40 mL/min (>60); Est Glom Filt Rate - Afr Amer 49 mL/min (>60); Estimated Creatinine Clearance 28.84 ml/min; Glucose 211 mg/dL (74-106); Magnesium 2.4 mg/dL (1.6-2.6); Potassium 4.3 mmol/L (3.5-5.1); Sodium Level 132 mmol/L (136-145)
[2020-08-22 22:22] LABS: Differential Indicated SCAN CRITERIA MET
[2020-08-22 22:23] LABS: Anisocytosis 1+; Platelet Estimate ADEQUATE (ADEQ); Red Cell Morphology N CHROM NORMAL (NORM C&C)
[2020-08-22 22:24] LABS: Macrocytosis 1+
[2020-08-22] MEDS: Furosemide 40 MG/4 ML Vial IV (22:30)
[2020-08-22 22:37] LABS: BNP,B-Type NATRIURETIC PEPTIDE 1117.8 pg/mL (0-100)
--- NOTE | 2020-08-22 22:59 | PCM.HP.STD ---
Problem List (1) Acute respiratory failure with hypoxia Status: Acute (2) Acute congestive heart failure Status: Acute Qualifiers: Heart failure type: diastolic Qualified Code(s): I50.31 - Acute diastolic (congestive) heart failure (3) S/P cardiac pacemaker procedure Status: Acute (4) Hypothyroidism Status: Chronic Qualifiers: Hypothyroidism type: unspecified Qualified Code(s): E03.9 - Hypothyroidism, unspecified (5) Pure hypercholesterolemia Status: Chronic (6) ALVERTO on CPAP Status: Chronic (7) Essential hypertension Status: Chronic (8) Atherosclerotic heart disease of [place] coronary artery without angina pectoris Status: Chronic Qualifiers: [place] vs. transplanted heart: unspecified whether [place] or transplanted heart Qualified Code(s): I25.10 - Atherosclerotic heart disease of [place] coronary artery without angina pectoris (9) Presence of stent in coronary artery Status: Chronic Comment: Successful PTCA/LIZBETH to LCX per cath 08/20/19; PCI/LIZBETH to mid LAD 01/15/09; PCI/BMS to prox LAD 08/20/07 (10) PAF (paroxysmal atrial fibrillation) Status: Chronic History of Present Illness Date of Admission: 08/22/20 Chief Complaint: Dyspnea, hypoxia, recent d/c [facility] after pacemaker placement and cardiac ablation. The patient is a 84 y/o F w/ PMHx: PAF s/p recent cardiac ablation, Hypothyroidism, Chronic indeterminant troponin, Chronic Diastolic CHF, Hypothyroidism, ALVERTO on CPAP, CAD s/p PCI, CKD stage III, recently discharged from [facility] following cardiac ablation for atrial fibrillation and pacemaker placement who presents to the [facility] ED on 08/22/20 with history of significant onset shortness of breath, notable EMS reported hypoxia low-80s, evidence respiratory distress which had been worsening over the last several hours since her discharge normally on 3L NC at home. She was recently admitted and transferred to [facility] secondary to ongoing cardiac issues for her recent interventions but upon that presentation had NOLBERTO and was discharged off HCTZ and her lasix decreased. Patient denied any specific chest pain with her dyspnea. She denied any recent bleeding or any need to change the dressing to her left chest status post pacemaker placement. Work-up in the ED included T 97.2, heart rate 94, BP 132/120, respiratory rate 32, initially 95% on CPAP 15 L transition to BiPAP, current vital signs heart rate 91, BP 135/77, respiratory rate 25, 96% on BiPAP 50%, CBC with WBC 16, hemoglobin 15.5, platelet 267 with left shift and increased lymphocytes, coags with PT 15.2, INR 1.3, BMP with sodium 132, BUN/creatinine 76/1.33, glucose 211, magnesium 2.4, troponin 0 0.062, BNP 1117.8, chest x-ray with new left-sided pacemaker placement with no pneumothorax with right greater than left interstitial infiltrates unchanged from previous film, EKG with paced pattern with no acute evidence of ischemia. Past Medical History Past Medical History (Chronic Problems): Chronic Problems (Last Reviewed 08/17/20 @ 22:06 by Tiesha Rea, RETAIL ADVERTISING SALES MANAGER-C) Hypothyroidism (Chronic) PAF (paroxysmal atrial fibrillation) (Chronic) jail current use of anticoagulant (Chronic) Pure hypercholesterolemia (Chronic) ALVERTO on CPAP (Chronic) Essential hypertension (Chronic) Atherosclerotic heart disease of [place] coronary artery without angina pectoris (Chronic) Presence of stent in coronary artery (Chronic ~08/20/19) Successful PTCA/LIZBETH to LCX per cath 08/20/19; PCI/LIZBETH to mid LAD 01/15/09; PCI/BMS to prox LAD 08/20/07 Atrial fibrillation status post cardioversion (Chronic) Medical History: Medical History (Last Reviewed 08/17/20 @ 22:06 by Tiesha Rea, RETAIL ADVERTISING SALES MANAGER-C) 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) Z79.01 Edema (Inactive) R60.9 Weakness (Acute) R53.1 Shortness of breath (Acute) R06.02 Pure hypercholesterolemia (Chronic) E78.00 ALVERTO on CPAP (Chronic) G47.33, Z99.89 Essential hypertension (Chronic) I10 Atherosclerotic heart disease of [place] coronary artery without angina pectoris (Chronic) I25.10 Presence of stent in coronary artery (Chronic) Onset Date: ~08/20/19 Z95.5 Successful PTCA/LIZBETH to LCX per cath 08/20/19; PCI/LIZBETH to mid LAD 01/15/09; PCI/BMS to prox LAD 08/20/07 Atrial fibrillation status post cardioversion (Chronic) I48.91 NSTEMI (non-ST elevated myocardial infarction) (Resolved) I21.4 CAD (coronary artery disease) I25.10 History of cardioversion Onset Date: ~07/09/20 Z98.890 Hypokalemia E87.6 HTN (hypertension) I10 Hyperlipidemia E78.5 Allergies enalaprilat [From Vasotec] Allergy (Verified 08/22/20 21:45) Other cough ezetimibe [From Zetia] Adverse Reaction (Verified 08/22/20 21:45) Other gi upset meperidine [From Demerol] Adverse Reaction (Verified 08/22/20 21:45) Nausea mirtazapine [From Remeron] Adverse Reaction (Verified 08/22/20 21:45) Other intolerance trazodone Adverse Reaction (Verified 08/22/20 21:45) Other dizziness zolpidem [From Ambien] Adverse Reaction (Verified 08/22/20 21:45) Other sleep walking issues Home Medications: Ambulatory Orders Medication Instructions Recorded Atorvastatin Calcium 40 mg PO DAILY 08/19/19 Clopidogrel Bisulfate [Clopidogrel] 75 mg PO DAILY 08/19/19 Gabapentin [Neurontin] 600 mg PO BID 08/19/19 Losartan Potassium 50 mg PO BID 08/19/19 Pramipexole Di-HCl [Mirapex] 0.25 mg PO BID PRN PRN 08/19/19 Aspirin E.C. [Ecotrin] 81 mg PO DAILY@0800 tab 08/21/19 trazodone 50 mg tablet 50 mg PO QHS PRN 12/30/19 Calcium Carbonate/Vitamin D3 1 tab PO DAILY 05/05/20 [Calcium 600-Vit D3 200 Tablet] Fexofenadine HCl [Ratna Allergy] 60 mg PO DAILY 05/05/20 Flaxseed Oil 1,000 mg PO DAILY 05/05/20 Multivit-Min/FA/Lycopen/Lutein 1 tab PO DAILY 05/05/20 [Centrum Silver Tablet] Nitroglycerin SL (ED ONLY) 0.4 mg SL X1 05/05/20 [Nitrostat] [place]-3 Fatty Acids/Fish Oil 1 ea PO BID 05/05/20 [[place] 3 1,000 mg Softgel] Pantoprazole Sodium [Protonix] 40 mg PO DAILY 05/05/20 Sertraline HCl [Zoloft] 25 mg PO DAILY 05/05/20 Vitamin B Complex [B Complex] 1 tab PO DAILY 05/05/20 Melatonin 10 mg PO PRN PRN 05/06/20 amlodipine 2.5 mg tablet 2.5 mg PO DAILY #90 tab 06/01/20 apixaban 2.5 mg tablet 2.5 mg PO BID #180 tab 07/01/20 potassium chloride 20 mEq 20 meq PO BID #180 tab 07/01/20 tablet,extended release(part/cryst) isosorbide mononitrate 60 mg 60 mg PO DAILY 07/08/20 tablet,extended release 24 hr famotidine 20 mg tablet 20 mg PO QHS PRN 08/07/20 levothyroxine 50 mcg tablet 50 mcg PO DAILY 08/07/20 Hydrocodone/Acetaminophen 1 tablet PO Q6H PRN PRN 08/17/20 [Hydrocodon-Acetaminophen 5-325] Sertraline HCl 50 mg PO DAILY 08/17/20 Furosemide 40 mg PO DAILY 08/22/20 Magnesium Hydroxide [Dulcolax] 15 ml PO DAILY PRN PRN 08/22/20 Sour Graham Extract [Tart [place] 1,000 mg PO DAILY 08/22/20 Extract] Sucralfate [Carafate] 1 gm PO BID 08/22/20 Turmeric [Turmeric Root] 1 mg PO DAILY 08/22/20 Surgical History: Surgical History (Last Reviewed 08/17/20 @ 22:06 by BLANCO Hou) Presence of coronary angioplasty implant and graft Onset Date: ~08/20/19 Z95.5 Successful PTCA/LIZBETH to LCX per cath 08/20/19 History of appendectomy Z90.49 History of carpal tunnel surgery Z98.890 History of left breast biopsy Z98.890 History of total hysterectomy Z90.710 S/P PTCA (percutaneous transluminal coronary angioplasty) Z98.61 Surgical History: angioplasty - PCI., - - Appendectomy, L breast Bx, Carpal tunnel surgery, JESSICA, PCI most recently 08/20/19 PCI L Cx. 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 Lives: Alone Smoking Status: Never smoker Tobacco Use: Non-smoker Alcohol: None Drugs: None - *Family History Maternal Family History: Family History (Last Reviewed 08/17/20 @ 22:06 by KOBE HouC) Father Heart disease Brother Diabetes Mother COPD (chronic obstructive pulmonary disease) Grandfather Heart disease History Items: COPD Paternal Family History: Family History (Last Reviewed 08/17/20 @ 22:06 by BLANCO Hou) Father Heart disease Brother Diabetes Mother COPD (chronic obstructive pulmonary disease) Grandfather Heart disease History Items: Heart Disease Review of Systems Constitutional: Reports: Malaise, Weakness, Fatigue. Denies: Anorexia, Chills, Fever, Weight Change HEENT: Denies: Head Aches, Sinus Congestion, Sinus Drainage Cardiovascular: Denies: Chest Pain, Chest Pressure, Chest Tightness, Edema, Light Headedness, Orthopnea, Palpitations, Syncope Respiratory: Reports: Shortness of Breath, Shortness of breath at rest, Shortness of breath upon exertion. Denies: Cough, Sputum production, Wheezing Gastrointestinal: Denies: Abdominal Pain, Nausea, Vomiting Genitourinary: Denies: Dysuria Musculoskeletal: Reports: Joint Pain. Denies: Joint Tenderness Skin: Denies: Rash, Wounds Neurological: Denies: Numbness, Tingling, Focal weakness Psychiatric: Reports: Anxiety, Depression. Denies: Homicidal Ideations, Suicidal Ideations Hematologic/ Lymphatic: Reports: Easy Bruising, Easy Bleeding VTE Information - Inpt Only VTE Present on Admission: No VTE Mechan Device Prophylaxis: SCD's VTE Pharm Prophylaxis ordered?: Yes Subjective: Patient laying in the ED bed, BiPAP in place, notes feeling improved since initial ED presentation, fatigue. Objective: Physical Examination: General: awake, alert, oriented x 3, hard of hearing, remains cooperative, laying in the ED bed, fatigued, BIPAP in place, lessening evidence respiratory distress, still increased RR but not using accessory muscles now. Skin: normal color, turgor, no icterus, cyanosis. HEENT: AT/NC, EOMI, PERRLA, dry MM, no carotid bruits, + JVD noted. Lungs: Diffusely diminished breath sounds, greater bilateral bases, mildly increased respiratory rate still, lessening evidence of respiratory distress, BiPAP in place, mild rales bases, no obvious wheezing. Heart: Regular, paced; no gallop, rub audible, left upper chest with ecchymoses, status post recent pacemaker placement, dressing in place, some small amount of blood on the dressing. Abdomen: soft, NTTP, ND, normal BS, no HSM. Extremities: no cyanosis, clubbing, or edema. Neurological: patient awake, alert, oriented as noted; cognitive function appears baseline intact; pupils equally reactive to light and accomodation; cranial nerves II-XII grossly normal, moving all 4 extremities, no focal deficits, strength severely globally decreased secondary to acute presentation. Psychiatric: affect appears fatigued, no acute evidence of depressive or anxiety feelings. - Physical Exam Vitals/I&O's: Vital Signs Temp Pulse Resp BP Pulse Ox 97.2 F L 91 25 H 135/77 H 95 08/22/20 21:38 08/22/20 22:31 08/22/20 22:31 08/22/20 22:31 08/22/20 22:31 Oxygen Flow Rate (L/min) 15 Oxygen Delivery Method CPAP Weight: 158 lb 11.725 oz Body Mass Index (BMI) 26.4 Finger Stick Blood Glucose 182 Laboratory Results 08/22/20 21:41: WBC 16.0 H, RBC 5.15, Hgb 15.5 H, Hct 51.0 H, MCV 99.0, MCH 30.1, MCHC 30.4 L, RDW Std Deviation 65.6 H, RDW Coeff of Brian 17.9 H, Plt Count 267, MPV 9.6, Immature Gran % (Auto) 0.600, Neut % (Auto) 62.6, Lymph % (Auto) 30.9, [place] % (Auto) 5.7, Eos % (Auto) 0.1, Baso % (Auto) 0.1, Absolute Neuts (auto) 10.0 H, Absolute Lymphs (auto) 4.96 H, Nucleated RBC % 0, Platelet Estimate ADEQUATE, RBC Morphology N CHROM, Anisocytosis 1+, Macrocytosis 1+ 08/22/20 21:41: PT 15.2 H, INR 1.3 08/22/20 21:41: Sodium 132 L, Potassium 4.3, Chloride 99, Carbon Dioxide 24.0, Anion Gap 9, BUN 26 H, Creatinine 1.33 H, Estim Creat Clear Calc 28.84, Est GFR (MDRD) Af Amer 49 L, Est GFR (MDRD) Non-Af 40 L, BUN/Creatinine Ratio 19.5, Glucose 211 H, Calcium 9.1, Magnesium 2.4, Troponin I 0.062 H 08/22/20 21:41: B-Natriuretic Peptide 1117.8 H Current Medications Nitroglycerin (Nitroglycerin Sl (Ed/Img/Cath) 0.4 Mg Tablet) 0.4 mg SL Q5M PRN PRN Reason: Chest pain Assessment/Plan All Active Problems (Last Reviewed 08/17/20 @ 22:06 by Tiesha Rea, RETAIL ADVERTISING SALES MANAGER-C) Atrial fibrillation with RVR (Acute) Elevated liver enzymes (Acute) Acute respiratory failure with hypoxia (Acute) S/P cardiac pacemaker procedure (Acute) Acute congestive heart failure (Acute) Bilateral pleural effusion (Acute) Hypoxemia (Acute) Weakness (Acute) Shortness of breath (Acute) NSTEMI (non-ST elevated myocardial infarction) (Resolved) The patient is a 84 y/o F w/ PMHx: PAF s/p recent cardiac ablation, Hypothyroidism, Chronic indeterminant troponin, Chronic Diastolic CHF, Hypothyroidism, ALVERTO on CPAP, CAD s/p PCI, CKD stage III, recently discharged from [facility] following cardiac ablation for atrial fibrillation and pacemaker placement who presents to the [facility] ED on 08/22/20 with history of significant onset shortness of breath, notable EMS reported hypoxia low-80s, evidence respiratory distress which had been worsening over the last several hours since her discharge normally on 3L NC at home. 1. Acute on Chronic Hypoxic Respiratory Failure secondary to Acute Diastolic CHF Exacerbation: CXR obtained in the ED w/ notes of overload with elevated BNP. Patient administered IV lasix in the ED, will admit to PCU, continue BiPAP with transition to nasal cannula once appropriate, maintain on cardiac telemetry, obtain cardiac enzyme series, obtain serial EKGs, continue IV lasix diuresis, monitor I/Os, maintain on intake restriction, continue medical therapy. Recent TSH is noted, magnesium level obtained in the ED 2.4. 05/05/2020 echocardiogram with normal LV systolic function, EF 65%, mildly enlarged LA, mild MVI, mild to moderate TVI, RVSP 35 mmHg. Cardiology consulted, pending. PRN morphine to decrease afterload, continue oxygen supplementation, if necessary will position w/ upright position with legs off bed to decrease preload. 2. Indeterminate cardiac enzyme, likely associated with #1: Admission EKG paced with no acute evidence of ischemia, troponin 0.062, prior to this on 08/17/2020 had been less than 0.015 but has been elevated in the past, will continue to trend cardiac enzymes, maintain on telemetry monitoring, continue #1 as noted. 3. Recent LFT elevations: Gallbladder ultrasound had been unremarkable aside multiple gallstones with thickening the gallbladder wall up to 6 cm with mild ascites and a right-sided pleural effusion, will repeat LFTs which was discussed with the ED physician, suspected likely related with recent acute presentation and failure. 4. PAF: Status post recent AV belle cardiac ablation w/ pacemaker implantation at [facility], restarting eliquis 08/25/20, not on any beta-dominic therapy. 5. CAD: Status post PCI history, continue patient aspirin, Plavix, restart eliquis 08/25/20, statin, losartan, not on beta-dominic therapy. 6. Chronic Kidney Disease Stage III: Admission BUN/Cr 6/1.33, improved from recent admission, at baseline, most recent 08/19/2020 BUNs/creatinine 59/1.87, continued on IV Lasix as noted, continue to trend renal function. 7. Hypothyroidism: Recent TSH 10.40, free T4 1.11, clinical, given presentation may need to make medication alterations, in interim we will continue Synthroid regimen. 8. Hypertension: Continue home regimen including amlodipine, isosorbide, losartan, IV Lasix as noted with alterations as needed, PRN hydralazine. 9. Hyperlipidemia: Continue home statin regimen. 10. ALVERTO: Currently maintained on BiPAP, normally CPAP nightly. 11. Anxiety and depression: We will continue patient home sertraline as well as trazodone regimen. 12. GERD: We will maintain on PPI and sucralfate. 13. DVT prophylaxis: SCDs, continue to hold home eliquis, allowed restart 08/25/20. 14. CODE status: Discussed CODE status at length including difference between FULL code, DNR-CCA and DNR-CC status. Following discussions about the differences in these status, requested Full Code status. Advanced Care Planning Face to Face Time: 16 minutes. Inpatient E&M: 53230 Init Hosp L3 Procedures: 60555 Advncd Care Plan 30 Min
[2020-08-22 23:46] LABS: AST(SGOT) 90 U/L (15-37); Alanine Aminotransfer ALT/SGPT 295 U/L (13-56); Albumin, Serum 3.8 g/dL (3.2-5.0); Alkaline Phosphatase 199 U/L (45-117); Bilirubin, Direct 0.86 mg/dL (0.00-0.30); Globulin 4.2 g/dL (2.2-4.2)
[2020-08-23] VITALS (16 sets, daily range): BP systolic 106–133; BP diastolic 65–89; PULSE 90–96; RESP 12–20; TEMP 36.6–36.7; O2SAT 93–97
[2020-08-23] MEDS: MELATONIN 10 MG TABLET PO (00:41)
[2020-08-23 05:00] LABS: Absolute Lymphocyte Count 3.04 X10^3/uL (0.83-4.51); Basophil# 0.01 X10^3/uL; Basophil% 0.1 % (0-1); Eosinophil# 0.02 X10^3/uL; Eosinophils% 0.2 % (0-5); Hematocrit 44.2 % (37-47); Hemoglobin 13.8 g/dL (12.0-15.0); Lymphocyte # 3.04 X10^3/ul (0.83-4.51); Lymphocyte % 28.1 % (19-41); Mean Corp Hgb Conc 31.2 g/dL (32-36); Mean Corpuscular Hgb 30.5 pg (27.0-32.0); Mean Corpuscular Volume 97.8 fL (81-99); Mean Platelet Vol. 9.4 fl (6.2-12.0); Monocyte# 0.67 X10^3/uL; Monocyte% 6.2 % (0-10); NRBC Flagged by Analyzer 0 % (0-5); Neutrophil # 7.04 X10^3/uL (2.7-7.7); Platelet Count 189 K/mm3 (150-450); RBC Distribution Width CV 17.6 % (11.6-14.6); RBC Distribution Width SD 64.2 fl (35.1-43.9); Red Blood Count 4.52 M/mm3 (4.2-5.4); White Blood Count 10.8 K/mm3 (4.4-11.0)
[2020-08-23 05:25] LABS: AST(SGOT) 62 U/L (15-37); Alanine Aminotransfer ALT/SGPT 232 U/L (13-56); Albumin, Serum 3.2 g/dL (3.2-5.0); Alkaline Phosphatase 148 U/L (45-117); Anion Gap 6 (5-15); BUN 23 mg/dL (7-18); BUN/Creat Ratio 21.7 RATIO (10-20); Calcium,Total 8.7 mg/dL (8.5-10.1); Chloride 100 mmol/L (98-107); Creatinine, Serum 1.06 mg/dL (0.55-1.02); EST Glomerular Filtration Rate 53 mL/min (>60); Est Glom Filt Rate - Afr Amer 64 mL/min (>60); Estimated Creatinine Clearance 33.26 ml/min; Globulin 3.3 g/dL (2.2-4.2); Glucose 117 mg/dL (74-106); Potassium 3.5 mmol/L (3.5-5.1); Protein, Total 6.5 g/dL (6.4-8.2); Sodium Level 137 mmol/L (136-145)
[2020-08-23] MEDS: Levothyroxine 50 MCG Tablet PO (05:33)
[2020-08-23] MEDS: Sucralfate 1 GM Tablet PO ×2 (06:56→18:14)
[2020-08-23] MEDS: Aspirin E.C. 81 MG Tablet PO (08:56)
[2020-08-23] MEDS: Gabapentin 600 MG Tablet PO ×2 (09:00→21:02)
[2020-08-23] MEDS: amLODIPine 2.5 MG Tablet PO (09:00)
[2020-08-23] MEDS: Furosemide 40 MG/4 ML Vial IV ×2 (09:00→18:14)
[2020-08-23] MEDS: Clopidogrel Bisulfate 75 MG Tablet PO (09:00)
[2020-08-23] MEDS: Pantoprazole Sodium 40 MG Tablet PO (09:00)
[2020-08-23] MEDS: Loratadine 10 MG Tablet PO (09:00)
[2020-08-23] MEDS: Potassium Chloride Oral Tablet 20 MEQ PO ×2 (09:01→21:02)
[2020-08-23] MEDS: Sertraline 50 MG Tablet 25 MG PO (09:01)
[2020-08-23] MEDS: Sertraline 50 MG Tablet PO (09:01)
[2020-08-23] MEDS: Isosorbide Mononitrate 60 MG Tablet PO (09:01)
[2020-08-23] MEDS: Calcium Carb/Vitamin D 1 TABLET Tablet PO (09:05)
[2020-08-23] MEDS: Losartan Potassium 50 MG Tablet PO ×2 (09:05→21:02)
[2020-08-23] MEDS: oxyCODONE 5 MG Tablet PO (09:22)
[2020-08-23] MEDS: Ipratropium/Albuterol Sulfate 3 ML AMPUL.NEB INHALATION ×2 (12:48→19:02)
--- NOTE | 2020-08-23 13:50 | PN_ITS ---
<[facility] [employer] - Last Filed: 08/23/20 14:08> Patient Problems: Active and Suspected Problems (Last Reviewed 08/17/20 @ 22:06 by Tiesha macias NP-C) Acute respiratory failure with hypoxia (Acute) S/P cardiac pacemaker procedure (Acute) Acute congestive heart failure (Acute) Subjective: Patient seen and examined. States she continues to feel short of breath. States she was home from [facility] and within 5 minutes felt like she needed to come back to the hospital. She states she lives alone and does not feel safe being home alone. She denies chest pain. Denies other associated symptoms or complaints. - Physical Exam Vitals/I&O's: Vital Signs Temp Pulse Resp BP Pulse Ox 97.8 F 93 20 H 106/65 94 08/23/20 11:35 08/23/20 12:48 08/23/20 12:48 08/23/20 11:35 08/23/20 11:35 Oxygen Flow Rate (L/min) 6 Oxygen Delivery Method Nasal Cannula Weight: 150 lb 9.211 oz Body Mass Index (BMI) 26.7 Finger Stick Blood Glucose 182 Intake and Output for Last 24 Hours 08/21/20 08/22/20 08/23/20 23:59 23:59 23:59 Intake Total 0 / 0 50 / 50 Output Total 0 / 0 950 / 950 Balance 0 / 0 -900 / -900 General: Alert, Oriented x3, Cooperative HEENT: Atraumatic, PERRLA, EOMI, Normocephalic Neck: Supple, No JVD, Negative Carotid Bruits Lungs: Diminished, Rales Cardiovascular: - - Paced rhythm Abdomen: Bowel Sounds Present, Soft, Non Tender, Non-Distended Extremities: No clubbing, No cyanosis, No edema Skin: No rashes, No breakdown, - - Left chest ecchymosis from recent pacemaker placement Musculoskeletal: No Tenderness to Palpation of Joints or Extremities Neurological: Cranial nerves II-XII grossly intact, Neuro grossly intact Psych/Mental Status: Normal Affect, Appropriate Laboratory Results 08/22/20 21:41: WBC 16.0 H, RBC 5.15, Hgb 15.5 H, Hct 51.0 H, MCV 99.0, MCH 30.1, MCHC 30.4 L, RDW Std Deviation 65.6 H, RDW Coeff of Brian 17.9 H, Plt Count 267, MPV 9.6, Immature Gran % (Auto) 0.600, Neut % (Auto) 62.6, Lymph % (Auto) 30.9, Reeves % (Auto) 5.7, Eos % (Auto) 0.1, Baso % (Auto) 0.1, Absolute Neuts (auto) 10.0 H, Absolute Lymphs (auto) 4.96 H, Nucleated RBC % 0, Platelet Estimate ADEQUATE, RBC Morphology N CHROM, Anisocytosis 1+, Macrocytosis 1+ 08/22/20 21:41: PT 15.2 H, INR 1.3 08/22/20 21:41: Sodium 132 L, Potassium 4.3, Chloride 99, Carbon Dioxide 24.0, Anion Gap 9, BUN 26 H, Creatinine 1.33 H, Estim Creat Clear Calc 28.84, Est GFR (MDRD) Af Amer 49 L, Est GFR (MDRD) Non-Af 40 L, BUN/Creatinine Ratio 19.5, Glucose 211 H, Calcium 9.1, Magnesium 2.4, Troponin I 0.062 H 08/22/20 21:41: B-Natriuretic Peptide 1117.8 H 08/22/20 21:41: Total Bilirubin 1.60 H, Direct Bilirubin 0.86 H, AST 90 H, ALT 295 H, Alkaline Phosphatase 199 H, Total Protein 8.0, Albumin 3.8, Globulin 4.2 08/23/20 00:45: Troponin I 0.056 H 08/23/20 04:20: WBC 10.8, RBC 4.52, Hgb 13.8, Hct 44.2, MCV 97.8, MCH 30.5, MCHC 31.2 L, RDW Std Deviation 64.2 H, RDW Coeff of Brian 17.6 H, Plt Count 189, MPV 9.4, Immature Gran % (Auto) 0.400, Neut % (Auto) 65.0, Lymph % (Auto) 28.1, Reeves % (Auto) 6.2, Eos % (Auto) 0.2, Baso % (Auto) 0.1, Absolute Neuts (auto) 7.0, Absolute Lymphs (auto) 3.04, Nucleated RBC % 0 08/23/20 04:20: Sodium 137, Potassium 3.5, Chloride 100, Carbon Dioxide 31.0, Anion Gap 6, BUN 23 H, Creatinine 1.06 H, Estim Creat Clear Calc 33.26, Est GFR (MDRD) Af Amer 64, Est GFR (MDRD) Non-Af 53 L, BUN/Creatinine Ratio 21.7 H, Glucose 117 H, Calcium 8.7, Total Bilirubin 1.40 H, AST 62 H, ALT 232 H, Alkaline Phosphatase 148 H, Total Protein 6.5, Albumin 3.2, Globulin 3.3, Albumin/Globulin Ratio 1.0 08/23/20 04:20: Troponin I 0.050 H Current Medications Acetaminophen (Acetaminophen 325 Mg Tablet) 650 mg PO Q6H PRN PRN PRN Reason: Pain Score 1-10/Temp > 100.7 F Albuterol Sulfate (Albuterol 2.5 Mg/3 Ml Vial.Neb.) 2.5 mg INHALATION Q2H PRN PRN PRN Reason: Dyspnea, wheezing Albuterol/Ipratropium (Ipratropium/Albuterol Sulfate 3 Ml Ampul.Neb) 3 ml INHALATION Q6H.RT [facility] Last Admin: 08/23/20 12:48 Dose: 3 ml Documented by: Amlodipine Besylate (Amlodipine 2.5 Mg Tablet) 2.5 mg PO DAILY [facility] Last Admin: 08/23/20 09:00 Dose: 2.5 mg Documented by: Apixaban (Apixaban 2.5 Mg Tablet) 2.5 mg PO BID [facility] Aspirin (Aspirin E.C. 81 Mg Tablet) 81 mg PO DAILY@0800 [facility] Last Admin: 08/23/20 08:56 Dose: 81 mg Documented by: Atorvastatin Calcium (Atorvastatin Calcium 40 Mg Tablet) 40 mg PO QHS [facility] Calcium/Vitamin D (Calcium Carb/Vitamin D 1 Tablet Tablet) 1 tablet PO DAILY [facility] Last Admin: 08/23/20 09:05 Dose: 1 tablet Documented by: Clopidogrel Bisulfate (Clopidogrel Bisulfate 75 Mg Tablet) 75 mg PO DAILY [facility] Last Admin: 08/23/20 09:00 Dose: 75 mg Documented by: Furosemide (Furosemide 40 Mg/4 Ml Vial) 40 mg IV BID@1000,1800 [facility] Last Admin: 08/23/20 09:00 Dose: 40 mg Documented by: Gabapentin (Gabapentin 600 Mg Tablet) 600 mg PO BID [facility] Last Admin: 08/23/20 09:00 Dose: 600 mg Documented by: Guaifenesin (Guaifenesin 10 Ml Udc (200mg/10ml)) 20 ml PO Q4H PRN PRN PRN Reason: COUGH Hydralazine HCl (Hydralazine 20 Mg/Ml Vial) 10 mg IV Q4H PRN PRN PRN Reason: SBP > 160 Sodium Chloride () 250 mls @ 15 mls/hr IV .[id number] PRN PRN Reason: Saline Flush Sodium Chloride () 250 mls @ 15 mls/hr IV .[id number] PRN PRN Reason: Additional IVPB Infusion Isosorbide Mononitrate (Isosorbide Mononitrate 60 Mg Tablet) 60 mg PO DAILY [facility] Last Admin: 08/23/20 09:01 Dose: 60 mg Documented by: Levothyroxine Sodium (Levothyroxine 50 Mcg Tablet) 50 mcg PO DAILY@0600 [facility] Last Admin: 08/23/20 05:33 Dose: 50 mcg Documented by: Loratadine (Loratadine 10 Mg Tablet) 10 mg PO DAILY [facility] Last Admin: 08/23/20 09:00 Dose: 10 mg Documented by: Losartan Potassium (Losartan Potassium 50 Mg Tablet) 50 mg PO BID [facility] Last Admin: 08/23/20 09:05 Dose: 50 mg Documented by: Melatonin (Melatonin 10 Mg Tablet) 10 mg PO QHS PRN PRN PRN Reason: SLEEP Last Admin: 08/23/20 00:41 Dose: 10 mg Documented by: Morphine Sulfate (Morphine 2 Mg/Ml Syringe) 2 mg IV Q3H PRN PRN PRN Reason: Pain Score 6-10 Nitroglycerin (Nitroglycerin (Inpatient Use) 0.4 Mg Tab.Subl) 0.4 mg SL Q5M PRN PRN Reason: CARDIAC/CHEST PAIN Ondansetron HCl (Ondansetron 4 Mg/2 Ml Vial) 4 mg IV Q8H PRN PRN PRN Reason: NAUSEA/VOMITING Oxycodone HCl (Oxycodone 5 Mg Tablet) 5 mg PO Q4H PRN PRN PRN Reason: Pain Score 4-5 Last Admin: 08/23/20 09:22 Dose: 5 mg Documented by: Pantoprazole Sodium (Pantoprazole Sodium 40 Mg Tablet) 40 mg PO DAILY [facility] Last Admin: 08/23/20 09:00 Dose: 40 mg Documented by: Potassium Chloride (Potassium Chloride Oral Tablet 20 Meq) 20 meq PO BID [facility] Last Admin: 08/23/20 09:01 Dose: 20 meq Documented by: Pramipexole Dihydrochloride (Pramipexole Di-Hcl 0.25 Mg Tablet) 0.25 mg PO BID PRN PRN PRN Reason: SCIATICA Prochlorperazine Edisylate (Prochlorperazine 10 Mg/2 Ml Vial) 5 mg IV Q4H PRN PRN PRN Reason: Breakthrough Nausea/Vomiting Psyllium Hydrophilic Mucilloid (Psyllium 1 Packet) 1 packet PO DAILY PRN PRN PRN Reason: Constipation Senna/Docusate Sodium (Senna/Docusate Sodium 1 Tablet) 2 tablet PO BID PRN PRN PRN Reason: Constipation Sertraline HCl (Sertraline 50 Mg Tablet) 25 mg PO DAILY [facility] Last Admin: 08/23/20 09:01 Dose: 25 mg Documented by: Sertraline HCl (Sertraline 50 Mg Tablet) 50 mg PO DAILY [facility] Last Admin: 08/23/20 09:01 Dose: 50 mg Documented by: Sodium Chloride (0.9% Saline Lock 10 Ml Syringe) 10 - 40 ml IV UD PRN PRN Reason: SALINE FLUSH Sucralfate (Sucralfate 1 Gm Tablet) 1 gm PO BIDAC [facility] Last Admin: 08/23/20 06:56 Dose: 1 gm Documented by: Throat Lozenges (Benzocaine/Menthol 1 Lozenge) 1 lozenge MUCOUS MEM Q2H PRN PRN PRN Reason: SORE THROAT Trazodone HCl (Trazodone 50 Mg Tablet) 50 mg PO QHS PRN PRN PRN Reason: SLEEP Medical Necessity - Tobacco Use Smoking Status: Never smoker Tobacco Use: Non-smoker Assessment/Plan All Active Problems (Last Reviewed 08/17/20 @ 22:06 by Tiesha Rea NP-C) Atrial fibrillation with RVR (Acute) Elevated liver enzymes (Acute) Acute respiratory failure with hypoxia (Acute) S/P cardiac pacemaker procedure (Acute) Acute congestive heart failure (Acute) Bilateral pleural effusion (Acute) Hypoxemia (Acute) Weakness (Acute) Shortness of breath (Acute) NSTEMI (non-ST elevated myocardial infarction) (Resolved) 1. Acute on chronic hypoxic respiratory failure secondary to acute on chronic heart failure with preserved ejection fraction-chest x-ray consistent with congestion. BNP greater than 1000. Echocardiogram May 2020 demonstrated an EF of 65%, mild mitral valve insufficiency, mild to moderate tricuspid valve insufficiency, RVSP estimated to be 35 mmHg. Continue IV Lasix. Strict I&O. Daily weight. PT/OT. Patient amendable to SNF/rehab at discharge. 2. Indeterminate troponin-likely demand ischemia related to #1. Enzymes did not trend. 3. Transaminitis-unclear etiology. Possibly congestion related #1. Recent gallbladder ultrasound 08/17/2020 with mild ascites, multiple gallstones, gallbladder thickening. CT of abdomen pelvis showed cholelithiasis. Trend LFTs. 4. Paroxysmal atrial fibrillation-recent AV node cardiac ablation and pacemaker placement at [facility] [place]. Restart Eliquis 08/25/2020. 5. CAD with history of PCI-continue aspirin, Plavix, statin, losartan. 6. Chronic kidney disease stage IIIa-stable, trend BMP. 7. Hypothyroidism-continue Synthroid. 8. Hypertension-continue amlodipine, isosorbide, losartan. 9. Hyperlipidemia-continue statin. 10. ALVERTO-on BiPAP nightly. 11. Anxiety/depression-on sertraline, trazodone. 12. GERD-continue PPI, Carafate. DVT prophylaxis-SCDs, resume Eliquis 08/25/2020. Discharge planning: Anticipate SNF when medically stable. Follow PT/OT. This patient was seen by BLANCO Duckworth under the supervision of Dr. Davey. <Nick Davey - Last Filed: 08/24/20 12:23> Subjective: Seen and examined Pt is SOB and wheezing although sob is better than at time of admission. HAD Left subclavicular ppm. Mild bruise and tenderness around pacemaker Objective: ON EXAM General: Alert, Oriented x3, Cooperative HEENT: Atraumatic, PERRLA, EOMI, Normocephalic Oral: No Gingival or Mucosal Lesions/ Ulcerations Neck: Supple, No JVD, Negative Carotid Bruits Lungs: Air entry diminished in bilateral lung bases. B/L wheezing, mild sob. Cardiovascular: left PPM. paced rhythm. Normal S1, Normal S2, systolic murmur LLSB Abdomen: Bowel Sounds Present, Soft, Non Tender, Non-Distended : No renal angle tenderness. No suprapubic tenderness. Extremities: MILD edema, Capillary Refill Less than 3 Seconds Skin: No rashes, No breakdown Musculoskeletal: No Tenderness to Palpation of Joints or Extremities Neurological: Cranial nerves II-XII grossly intact, Deep Tendon Reflexes 2+/4 and Symmetrical, Neuro grossly intact Psych/Mental Status: Normal Affect, Appropriate. - Physical Exam Vitals/I&O's: Vital Signs Temp Pulse Resp BP Pulse Ox 98.4 F 99 18 138/78 H 93 08/24/20 08:53 08/24/20 08:53 08/24/20 08:53 08/24/20 08:53 08/24/20 09:13 Oxygen Flow Rate (L/min) 2 Oxygen Delivery Method Nasal Cannula Weight: 151 lb 0.266 oz Body Mass Index (BMI) 26.7 Finger Stick Blood Glucose 182 Intake and Output for Last 24 Hours 08/22/20 08/23/20 08/24/20 23:59 23:59 23:59 Intake Total 0 / 0 50 / 110 120 / 120 Output Total 0 / 0 950 / 1150 350 / 350 Balance 0 / 0 -900 / -1040 -230 / -230 Laboratory Results 08/24/20 05:24: Sodium 136, Potassium 3.7, Chloride 98, Carbon Dioxide 32.0, Anion Gap 6, BUN 18, Creatinine 1.07 H, Estim Creat Clear Calc 32.95, Est GFR (MDRD) Af Amer 63, Est GFR (MDRD) Non-Af 52 L, BUN/Creatinine Ratio 16.8, Glucose 101, Calcium 8.6, Total Bilirubin 1.40 H, AST 42 H, ALT 175 H, Alkaline Phosphatase 122 H, Total Protein 6.3 L, Albumin 2.9 L, Globulin 3.4, Albumin/Globulin Ratio 0.9 Current Medications Acetaminophen (Acetaminophen 325 Mg Tablet) 650 mg PO Q6H PRN PRN PRN Reason: Pain Score 1-10/Temp > 100.7 F Albuterol Sulfate (Albuterol 2.5 Mg/3 Ml Vial.Neb.) 2.5 mg INHALATION Q2H PRN PRN PRN Reason: Dyspnea, wheezing Albuterol/Ipratropium (Ipratropium/Albuterol Sulfate 3 Ml Ampul.Neb) 3 ml INHALATION Q6H.RT [facility] Last Admin: 08/24/20 06:53 Dose: 3 ml Documented by: Amlodipine Besylate (Amlodipine 2.5 Mg Tablet) 2.5 mg PO DAILY [facility] Last Admin: 08/24/20 09:01 Dose: 2.5 mg Documented by: Aspirin (Aspirin E.C. 81 Mg Tablet) 81 mg PO DAILY@0800 [facility] Last Admin: 08/24/20 07:58 Dose: 81 mg Documented by: Atorvastatin Calcium (Atorvastatin Calcium 40 Mg Tablet) 40 mg PO QHS [facility] Last Admin: 08/23/20 21:02 Dose: 40 mg Documented by: Calcium/Vitamin D (Calcium Carb/Vitamin D 1 Tablet Tablet) 1 tablet PO DAILY [facility] Last Admin: 08/24/20 09:01 Dose: 1 tablet Documented by: Clopidogrel Bisulfate (Clopidogrel Bisulfate 75 Mg Tablet) 75 mg PO DAILY [facility] Last Admin: 08/24/20 09:01 Dose: 75 mg Documented by: Furosemide (Furosemide 40 Mg/4 Ml Vial) 40 mg IV BID@1000,1800 [facility] Last Admin: 08/24/20 09:00 Dose: 40 mg Documented by: Gabapentin (Gabapentin 600 Mg Tablet) 600 mg PO BID [facility] Last Admin: 08/24/20 09:01 Dose: 600 mg Documented by: Guaifenesin (Guaifenesin 10 Ml Udc (200mg/10ml)) 20 ml PO Q4H PRN PRN PRN Reason: COUGH Hydralazine HCl (Hydralazine 20 Mg/Ml Vial) 10 mg IV Q4H PRN PRN PRN Reason: SBP > 160 Sodium Chloride () 250 mls @ 15 mls/hr IV .[id number] PRN PRN Reason: Saline Flush Sodium Chloride () 250 mls @ 15 mls/hr IV .[id number] PRN PRN Reason: Additional IVPB Infusion Isosorbide Mononitrate (Isosorbide Mononitrate 60 Mg Tablet) 60 mg PO DAILY [facility] Last Admin: 08/24/20 09:01 Dose: 60 mg Documented by: Levothyroxine Sodium (Levothyroxine 50 Mcg Tablet) 50 mcg PO DAILY@0600 [facility] Last Admin: 08/24/20 05:59 Dose: 50 mcg Documented by: Loratadine (Loratadine 10 Mg Tablet) 10 mg PO DAILY [facility] Last Admin: 08/24/20 09:01 Dose: 10 mg Documented by: Losartan Potassium (Losartan Potassium 50 Mg Tablet) 50 mg PO BID [facility] Last Admin: 08/24/20 09:01 Dose: 50 mg Documented by: Melatonin (Melatonin 10 Mg Tablet) 10 mg PO QHS PRN PRN PRN Reason: SLEEP Last Admin: 08/23/20 00:41 Dose: 10 mg Documented by: Morphine Sulfate (Morphine 2 Mg/Ml Syringe) 2 mg IV Q3H PRN PRN PRN Reason: Pain Score 6-10 Nitroglycerin (Nitroglycerin (Inpatient Use) 0.4 Mg Tab.Subl) 0.4 mg SL Q5M PRN PRN Reason: CARDIAC/CHEST PAIN Ondansetron HCl (Ondansetron 4 Mg/2 Ml Vial) 4 mg IV Q8H PRN PRN PRN Reason: NAUSEA/VOMITING Oxycodone HCl (Oxycodone 5 Mg Tablet) 5 mg PO Q4H PRN PRN PRN Reason: Pain Score 4-5 Last Admin: 08/23/20 09:22 Dose: 5 mg Documented by: Pantoprazole Sodium (Pantoprazole Sodium 40 Mg Tablet) 40 mg PO DAILY [facility] Last Admin: 08/24/20 09:01 Dose: 40 mg Documented by: Potassium Chloride (Potassium Chloride Oral Tablet 20 Meq) 20 meq PO BID [facility] Last Admin: 08/24/20 09:01 Dose: 20 meq Documented by: Pramipexole Dihydrochloride (Pramipexole Di-Hcl 0.25 Mg Tablet) 0.25 mg PO BID PRN PRN PRN Reason: SCIATICA Prochlorperazine Edisylate (Prochlorperazine 10 Mg/2 Ml Vial) 5 mg IV Q4H PRN PRN PRN Reason: Breakthrough Nausea/Vomiting Psyllium Hydrophilic Mucilloid (Psyllium 1 Packet) 1 packet PO DAILY PRN PRN PRN Reason: Constipation Senna/Docusate Sodium (Senna/Docusate Sodium 1 Tablet) 2 tablet PO BID PRN PRN PRN Reason: Constipation Last Admin: 08/23/20 21:02 Dose: 2 tablet Documented by: Sertraline HCl (Sertraline 50 Mg Tablet) 25 mg PO DAILY [facility] Last Admin: 08/24/20 09:01 Dose: 25 mg Documented by: Sertraline HCl (Sertraline 50 Mg Tablet) 50 mg PO DAILY [facility] Last Admin: 08/24/20 09:01 Dose: 50 mg Documented by: Sodium Chloride (0.9% Saline Lock 10 Ml Syringe) 10 - 40 ml IV UD PRN PRN Reason: SALINE FLUSH Sucralfate (Sucralfate 1 Gm Tablet) 1 gm PO BIDAC [facility] Last Admin: 08/24/20 06:52 Dose: 1 gm Documented by: Throat Lozenges (Benzocaine/Menthol 1 Lozenge) 1 lozenge MUCOUS MEM Q2H PRN PRN PRN Reason: SORE THROAT Trazodone HCl (Trazodone 50 Mg Tablet) 50 mg PO QHS PRN PRN PRN Reason: SLEEP Last Admin: 08/23/20 21:02 Dose: 50 mg Documented by: Assessment/Plan B This patient was seen in conjunction with Tila LONGORIA. I have independently interviewed and examined the patient and reviewed pertinent history, examination findings, laboratory and plan of management. I have reviewed the note and agree with the documented findings with the few additional points. In brief, patient is admitted for SOB, wheezing, elevated BNP after recent admission for AFIB with RVR which failed medical management for which she was transferred to [facility] AND had PPM. Pt was mild sob and was discharged from [facility]. monitor worker shows paced rhythm, CXR shows pulmonary congestion and admitted for acute on chronic HFpEF, EF 65% due to valvular heart disease, mild MR, MOD TR as per echo 05/2020. Discussed with screw machine operator single spindle and consult requested and plan for diuresis, PPM Interrogation, ECHO, HF core measures. Bronchodilator ordered. PT denies history of smoking or COPD. TROPONIN mild elevated, probably due to recent procedure, HF EXACERBATION. Resume Eliquis on 08/25 as per discharge instruction from [facility]. Pt had recent gallbladder ultrasound 08/17/2020 with mild ascites, multiple gallstones, gallbladder thickening suggestive asymptomatic chronic cholelithiasis. CT of abdomen pelvis showed cholelithiasis. PT doesn't have abd pain and had mild elevated liver chemistry during previous admission. Rest of comorbidities as mentioned above. I have discussed my assessment with Tila LONGORIA and orders have been reviewed. Inpatient E&M: 69505 Subs Hosp L2
--- NOTE | 2020-08-23 20:14 | CON.PCM_ITS ---
Reason for Consult Date of Consultation: 08/23/20 Reason for Consultation: Shortness of breath History of Present Illness: The patient is a 84 year old white female with a past history of atrial fibrillation, CAD, PCI, CHF, hyperlipidemia, and hypertension with recent admission to [facility] with A. fib with RVR and transferred to [facility] for AV belle ablation and pacemaker placement returning to [facility] with shortness of breath. Patient's BNP was found to be elevated and she was started on diuresis and also was found to be wheezing and has been started on bronchodilators. Patient feels her shortness of breath is somewhat better since admission. Review of systems: All systems reviewed. All else is negative except that in HPI.[] Past Medical History Allergies/Adverse Reactions: Allergies enalaprilat [From Vasotec] Allergy (Verified 08/22/20 21:45) Other cough ezetimibe [From Zetia] Adverse Reaction (Verified 08/22/20 21:45) Other gi upset meperidine [From Demerol] Adverse Reaction (Verified 08/22/20 21:45) Nausea mirtazapine [From Remeron] Adverse Reaction (Verified 08/22/20 21:45) Other intolerance trazodone Adverse Reaction (Verified 08/22/20 21:45) Other dizziness zolpidem [From Ambien] Adverse Reaction (Verified 08/22/20 21:45) Other sleep walking issues Home Medications: Ambulatory Orders Medication Instructions Recorded Atorvastatin Calcium 40 mg PO DAILY 08/19/19 Clopidogrel Bisulfate [Clopidogrel] 75 mg PO DAILY 08/19/19 Gabapentin [Neurontin] 600 mg PO BID 08/19/19 Losartan Potassium 50 mg PO BID 08/19/19 Pramipexole Di-HCl [Mirapex] 0.25 mg PO BID PRN PRN 08/19/19 Aspirin E.C. [Ecotrin] 81 mg PO DAILY@0800 tab 08/21/19 trazodone 50 mg tablet 50 mg PO QHS PRN 12/30/19 Calcium Carbonate/Vitamin D3 1 tab PO DAILY 05/05/20 [Calcium 600-Vit D3 200 Tablet] Fexofenadine HCl [Ratna Allergy] 60 mg PO DAILY 05/05/20 Flaxseed Oil 1,000 mg PO DAILY 05/05/20 Multivit-Min/FA/Lycopen/Lutein 1 tab PO DAILY 05/05/20 [Centrum Silver Tablet] Nitroglycerin SL (ED ONLY) 0.4 mg SL X1 05/05/20 [Nitrostat] [place]-3 Fatty Acids/Fish Oil 1 ea PO BID 05/05/20 [[place] 3 1,000 mg Softgel] Pantoprazole Sodium [Protonix] 40 mg PO DAILY 05/05/20 Sertraline HCl [Zoloft] 25 mg PO DAILY 05/05/20 Vitamin B Complex [B Complex] 1 tab PO DAILY 05/05/20 Melatonin 10 mg PO PRN PRN 05/06/20 amlodipine 2.5 mg tablet 2.5 mg PO DAILY #90 tab 06/01/20 apixaban 2.5 mg tablet 2.5 mg PO BID #180 tab 07/01/20 potassium chloride 20 mEq 20 meq PO BID #180 tab 07/01/20 tablet,extended release(part/cryst) isosorbide mononitrate 60 mg 60 mg PO DAILY 07/08/20 tablet,extended release 24 hr famotidine 20 mg tablet 20 mg PO QHS PRN 08/07/20 levothyroxine 50 mcg tablet 50 mcg PO DAILY 08/07/20 Hydrocodone/Acetaminophen 1 tablet PO Q6H PRN PRN 08/17/20 [Hydrocodon-Acetaminophen 5-325] Sertraline HCl 50 mg PO DAILY 08/17/20 Furosemide 40 mg PO DAILY 08/22/20 Magnesium Hydroxide [Dulcolax] 15 ml PO DAILY PRN PRN 08/22/20 Sour Graham Extract [Tart Graham 1,000 mg PO DAILY 08/22/20 Extract] Sucralfate [Carafate] 1 gm PO BID 08/22/20 Turmeric [Turmeric Root] 1 mg PO DAILY 08/22/20 Past Medical History (Chronic Problems): Chronic Problems (Last Reviewed 08/17/20 @ 22:06 by BLANCO Hou) Hypothyroidism (Chronic) PAF (paroxysmal atrial fibrillation) (Chronic) 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: No pertinent SECTION REPAIRER history - *Family History Maternal Family History: Family History (Last Reviewed 08/17/20 @ 22:06 by Tiesha Rea NP-Gypsy) Father Heart disease Brother Diabetes Mother COPD (chronic obstructive pulmonary disease) Grandfather Heart disease History Items: COPD Paternal Family History: Family History (Last Reviewed 08/17/20 @ 22:06 by BLANCO Hou) Father Heart disease Brother Diabetes Mother COPD (chronic obstructive pulmonary disease) Grandfather Heart disease History Items: Heart Disease Lives: Alone Smoking Status: Never smoker Tobacco Use: Non-smoker Alcohol: None Drugs: None Objective: Vital Signs Temp Pulse Resp BP Pulse Ox 98.0 F 90 18 125/75 H 97 08/23/20 17:59 08/23/20 19:00 08/23/20 17:59 08/23/20 17:59 08/23/20 17:59 Oxygen Flow Rate (L/min) 4 Oxygen Delivery Method Nasal Cannula Weight: 150 lb 9.211 oz Body Mass Index (BMI) 26.7 Finger Stick Blood Glucose 182 Intake and Output for Last 24 Hours 08/21/20 08/22/20 08/23/20 23:59 23:59 23:59 Intake Total 0 / 0 50 / 50 Output Total 0 / 0 950 / 950 Balance 0 / 0 -900 / -900 General: Awake, Alert, Oriented x 3 HEENT: Atraumatic Oral: Moist Mucosa Neck: Supple Lungs: Expiratory Wheezes-Beto Cardiovascular: Regular Rhythm Psych/Mental Status: Appropriate 08/22/20 21:41: WBC 16.0 H, RBC 5.15, Hgb 15.5 H, Hct 51.0 H, MCV 99.0, MCH 30.1, MCHC 30.4 L, Plt Count 267, MPV 9.6, Immature Gran % (Auto) 0.600, Neut % (Auto) 62.6, Lymph % (Auto) 30.9, [place] % (Auto) 5.7, Eos % (Auto) 0.1, Baso % (Auto) 0.1, Absolute Neuts (auto) 10.0 H, Nucleated RBC % 0 08/22/20 21:41: PT 15.2 H, INR 1.3 08/22/20 21:41: Sodium 132 L, Potassium 4.3, Chloride 99, Carbon Dioxide 24.0, Anion Gap 9, BUN 26 H, Creatinine 1.33 H, Est GFR (MDRD) Af Amer 49 L, Est GFR (MDRD) Non-Af 40 L, BUN/Creatinine Ratio 19.5, Glucose 211 H, Calcium 9.1, Magnesium 2.4, Troponin I 0.062 H 08/22/20 21:41: B-Natriuretic Peptide 1117.8 H 08/22/20 21:41: Total Bilirubin 1.60 H, Direct Bilirubin 0.86 H 08/23/20 00:45: Troponin I 0.056 H 08/23/20 04:20: WBC 10.8, RBC 4.52, Hgb 13.8, Hct 44.2, MCV 97.8, MCH 30.5, MCHC 31.2 L, Plt Count 189, MPV 9.4, Immature Gran % (Auto) 0.400, Neut % (Auto) 65.0, Lymph % (Auto) 28.1, [place] % (Auto) 6.2, Eos % (Auto) 0.2, Baso % (Auto) 0.1, Absolute Neuts (auto) 7.0, Nucleated RBC % 0 08/23/20 04:20: Sodium 137, Potassium 3.5, Chloride 100, Carbon Dioxide 31.0, Anion Gap 6, BUN 23 H, Creatinine 1.06 H, Est GFR (MDRD) Af Amer 64, Est GFR (MDRD) Non-Af 53 L, BUN/Creatinine Ratio 21.7 H, Glucose 117 H, Calcium 8.7, T otal Bilirubin 1.40 H 08/23/20 04:20: Troponin I 0.050 H Rhythm: EKG: ECHO: Stress Test: Cardiac Cath: PCI: CT Surgery: Holter monitor: EPS: PPM: CXR: Chest CT Scan: Assessment/Plan 1. Shortness of breath: Patient's BNP is elevated compared to prior visits as well. Agree with diuresis and also bronchodilators.Will be reasonable to repeat her 2D echo as she had recent AV belle ablation and pacemaker placement and has been having symptoms since then.
--- NOTE | 2020-08-23 20:21 | ECHOCS_ITS ---
Reason For Study: SOB Procedure This was a 2D Doppler, Color Flow transthoracic echocardiogram. The study was technically difficult. Contrast injection was performed. Exam performed portable in patient room. Left Ventricle Normal LV size. Segmental dysfunction with preserved ejection fraction (see wall motion). The estimated ejection fraction is 60 %. Unable to assess diastolic dysfunction. Apical wall motion abnormality may reflect pacemaker activation. Right Ventricle Normal RV size. ICD or pacer leads identified within the right ventricle. Normal systolic function. Atria The left atrium is moderately enlarged. Normal right atrium. ICD or pacer leads identified within the right atrium. No doppler evidence for ASD. Mitral Valve There is mild mitral annular calcification. Anterior leaflet diffuse mitral valve thickening. Moderate (2+) mitral valve insufficiency. Tricuspid Valve Normal tricuspid valve. Mild to moderate (1-2+) tricuspid valve insufficiency. Right ventricular systolic pressure estimated to be 58 mmHg. Aortic Valve Trisinus/trileaflet aortic valve. Mild focal aortic valve calcification. Pulmonic Valve The pulmonic valve is not well visualized. Great Vessels Normal sized aortic root. Calcified aortic root. Pericardium/Pleural No pericardial effusion. Echo lucency compatible with a pleural effusion. Medication Diluted definity 3.0ml given slow IV push to enhance endocardial definition. MMode/2D Measurements & Calculations LVIDd: 3.8 cm IVSd: 0.60 cm Ao root diam: 2.9 cm LVIDs: 2.7 cm LVPWd: 0.63 cm RVDd: 4.3 cm FS: 30.0 % LAV(MOD-bp): 72.4 ml LVAd ap4: 26.8 cm2 LVAd ap2: 16.6 cm2 LAV(MOD-bp) Indexed: 42.3 ml/m2 LVLd ap4: 7.1 cm LVLd ap2: 5.7 cm LAV(MOD-sp2): 69.0 ml EDV(MOD-sp4): 84.8 ml EDV(MOD-sp2): 40.6 ml LAV(MOD-sp4): 66.5 ml EDV(sp4-el): 86.2 ml EDV(sp2-el): 41.0 ml LVAs ap4: 17.0 cm2 LVAs ap2: 9.6 cm2 LVLs ap4: 6.4 cm LVLs ap2: 4.9 cm ESV(MOD-sp4): 37.3 ml ESV(MOD-sp2): 16.6 ml ESV(sp4-el): 38.6 ml ESV(sp2-el): 15.9 ml EF(MOD-sp4): 56.0 % EF(MOD-sp2): 59.1 % EF(sp4-el): 55.3 % SV(MOD-sp4): 47.5 ml SV(MOD-sp2): 24.0 ml SV(sp4-el): 47.6 ml LA A4 area: 22.8 cm2 LA dimension(2D): 4.5 cm RA A4 area: 18.0 cm2 Time Measurements MV dec time: 0.15 sec Doppler Measurements & Calculations MV E max kishan: 159.2 cm/sec Ao V2 max: 154.2 cm/sec LV V1 max: 118.6 cm/sec Ao max P.6 mmHg LV V1 max P.7 mmHg PA V2 max: 122.2 cm/sec PI end-d kishan: 122.6 cm/sec TR max kishan: 368.2 cm/sec TR max P.5 mmHg ECHO/Echo Complete W/ Contrast Interpretation Summary The study was technically difficult. Contrast injection was performed. Segmental dysfunction with preserved ejection fraction (see wall motion). The estimated ejection fraction is 60 %. Apical wall motion abnormality may reflect pacemaker activation. The left atrium is moderately enlarged. There is mild mitral annular calcification. Anterior leaflet diffuse mitral valve thickening. Moderate (2+) mitral valve insufficiency. Mild to moderate (1-2+) tricuspid valve insufficiency. Mild focal aortic valve calcification. Calcified aortic root. Echo lucency compatible with a pleural effusion. Right ventricular systolic pressure estimated to be 58 mmHg. Unable to assess diastolic dysfunction. ICD or pacer leads identified within the right atrium ICD or pacer leads identified within the right ventricle. Ordering Physician: Digna Castro Referring Physician: DANIELA REINOSO Performed By: Luanne Rosa, TABATHACS, RVT
[2020-08-23] MEDS: traZODone 50 MG Tablet PO (21:02)
[2020-08-23] MEDS: Senna/Docusate Sodium 1 Tablet 2 TABLET PO (21:02)
[2020-08-23] MEDS: Atorvastatin Calcium 40 MG Tablet PO (21:02)
[2020-08-24] VITALS (15 sets, daily range): BP systolic 118–138; BP diastolic 53–88; PULSE 88–99; RESP 12–20; TEMP 36.3–37.5; O2SAT 93–99
[2020-08-24] MEDS: Ipratropium/Albuterol Sulfate 3 ML AMPUL.NEB INHALATION ×4 (00:22→19:49)
[2020-08-24] MEDS: Levothyroxine 50 MCG Tablet PO (05:59)
[2020-08-24 06:09] LABS: ALB/GLOB Ratio 0.9 RATIO (0.9-2.4); AST(SGOT) 42 U/L (15-37); Alanine Aminotransfer ALT/SGPT 175 U/L (13-56); Albumin, Serum 2.9 g/dL (3.2-5.0); Alkaline Phosphatase 122 U/L (45-117); Anion Gap 6 (5-15); BUN 18 mg/dL (7-18); BUN/Creat Ratio 16.8 RATIO (10-20); Calcium,Total 8.6 mg/dL (8.5-10.1); Chloride 98 mmol/L (98-107); Creatinine, Serum 1.07 mg/dL (0.55-1.02); EST Glomerular Filtration Rate 52 mL/min (>60); Est Glom Filt Rate - Afr Amer 63 mL/min (>60); Estimated Creatinine Clearance 32.95 ml/min; Globulin 3.4 g/dL (2.2-4.2); Glucose 101 mg/dL (74-106); Potassium 3.7 mmol/L (3.5-5.1); Protein, Total 6.3 g/dL (6.4-8.2); Sodium Level 136 mmol/L (136-145)
[2020-08-24] MEDS: Sucralfate 1 GM Tablet PO ×2 (06:52→17:33)
[2020-08-24] MEDS: Aspirin E.C. 81 MG Tablet PO (07:58)
[2020-08-24] MEDS: Furosemide 40 MG/4 ML Vial IV ×2 (09:00→17:33)
[2020-08-24] MEDS: Sertraline 50 MG Tablet PO (09:01)
[2020-08-24] MEDS: Clopidogrel Bisulfate 75 MG Tablet PO (09:01)
[2020-08-24] MEDS: amLODIPine 2.5 MG Tablet PO (09:01)
[2020-08-24] MEDS: Isosorbide Mononitrate 60 MG Tablet PO (09:01)
[2020-08-24] MEDS: Gabapentin 600 MG Tablet PO ×2 (09:01→20:52)
[2020-08-24] MEDS: Losartan Potassium 50 MG Tablet PO ×2 (09:01→20:46)
[2020-08-24] MEDS: Potassium Chloride Oral Tablet 20 MEQ PO ×2 (09:01→20:46)
[2020-08-24] MEDS: Loratadine 10 MG Tablet PO (09:01)
[2020-08-24] MEDS: Pantoprazole Sodium 40 MG Tablet PO (09:01)
[2020-08-24] MEDS: Sertraline 50 MG Tablet 25 MG PO (09:01)
[2020-08-24] MEDS: Calcium Carb/Vitamin D 1 TABLET Tablet PO (09:01)
--- NOTE | 2020-08-24 09:50 | PCM.PN.CARD ---
Subjectve: The patient is awake and alert. She does have complaints of chronic shortness of breath. She is also complaining of her upper extremity tremors. Objective: Vital Signs Temp Pulse Resp BP Pulse Ox 98.4 F 99 18 138/78 H 94 08/24/20 08:53 08/24/20 08:53 08/24/20 08:53 08/24/20 08:53 08/24/20 08:53 Oxygen Flow Rate (L/min) 2 Oxygen Delivery Method Nasal Cannula Weight: 151 lb 0.266 oz Body Mass Index (BMI) 26.7 Finger Stick Blood Glucose 182 Intake and Output for Last 24 Hours 08/22/20 08/23/20 08/24/20 23:59 23:59 23:59 Intake Total 0 / 0 50 / 110 120 / 120 Output Total 0 / 0 950 / 1150 350 / 350 Balance 0 / 0 -900 / -1040 -230 / -230 General: Awake, Alert, Oriented x 3, Cooperative HEENT: Atraumatic, Normocephalic, PERRL, EOMI, Sclera Non Icteric Neck: Supple, Good ROM Lungs: Rhonchi Cardiovascular: Regular Rhythm, Normal S1, Normal S2 Abdomen: Bowel Sounds Present, Soft Extremities: No edema Psych/Mental Status: Appropriate 08/24/20 05:24: Sodium 136, Potassium 3.7, Chloride 98, Carbon Dioxide 32.0, Anion Gap 6, BUN 18, Creatinine 1.07 H, Est GFR (MDRD) Af Amer 63, Est GFR (MDRD) Non-Af 52 L, BUN/Creatinine Ratio 16.8, Glucose 101, Calcium 8.6, Total Bilirubin 1.40 H Rhythm: Electronic ventricular paced rhythm Medical Necessity - Tobacco Use Smoking Status: Never smoker Tobacco Use: Non-smoker Assessment/Plan 1. CHF The patient's been reported as returning for concerns of shortness of breath thought related to underlying CHF with preserved ejection fraction. At the moment the patient is continuing medical therapy/support. She is pending a reevaluation with a transthoracic echocardiogram to reassess her cardiac anatomy and physiology and for any obvious concerns status post her recent AV node ablation and PPM placement. 2. Atrial fibrillation The patient has a history of atrial fibrillation. She has been on medical management. She has been on anticoagulant therapy in the past. She has recently undergone AV node ablation with permanent pacemaker placement. 3. AV node ablation status post permanent pacemaker placement She has recently undergone evaluation care at [facility] for her atrial fibrillation which is led to AV node ablation and permanent pacemaker placement. Her cardiac rhythm does appear to be an electronic ventricular paced rhythm at this time. Her [facility] records are unavailable for review at this time. 4. CAD status post PCI She does have a history of underlying CAD and PCI. She has undergone noninvasive and invasive evaluation including cardiac catheterization in 2019. At that time she underwent PCI of the ostial LCx. At the present time she is continuing medical therapy as best as possible. She is pending an echocardiogram to assess for any new left ventricular wall motion abnormalities or dysfunction. 5. Hyperlipidemia She will continue medical management as deemed appropriate. 6. Hypertension She will need continued evaluation and care with adjustment of her medicines as needed. Comment: The patient's case was discussed and reviewed with Dr. Castro. This note was generated using a voice recognition system and there may be incorrect words, spelling or punctuation that were not noted when reviewing the office note prior to saving.
--- NOTE | 2020-08-24 10:36 | CASEMGMT ---
Upon reviewing chart it appeared patient was thinking of going to a penitentiary short term. VANESSA accompanied by new hire VANESSA Reeder met with patient. SW asked patient about her plans for discharge. SW asked if she was still thinking she wanted to go to a nursing facility short term. She said she is going to go home with her daughter and son in law and get therapy there. SW asked her if it would be okay for SW to call her daughter. She said that would be fine. SW called patient's daughter and son in law. Introduced self and role at [facility]. SW confirmed that the plan is for patient to go home with them with home health. They had many questions about home health and how it works. SW went over all of this and what is covered. SW told them SW will leave a list of home health agencies in the room and they just need to number their top 3 choices. VANESSA explained that after that the Jigsaw Operator or SW will make the referral to the agency. VANESSA then provided a list of HH providers including quality and resource use data and consistent with the patient?s preferred geographic region, medical needs, and insurance network. This list was left in patient's room. VANESSA wealth management advisor CM to follow up tomorrow regarding which agency. Plan: d/c home with daughter and son in law with home health. Danyelle OMALLEY
--- NOTE | 2020-08-24 12:31 | CASEMGMT ---
NICOLE RODRIGUEZ Readmission Note Previous Admission: 08/17/20-08/19/20 Diagnosis: Afib with RVR, CHF DC Disposition: Pt was trf'd to [facility] due to failed medical treatment for afib with RVR. Current Admission: 08/22/20 Presentation: Acute on chronic hypoxic resp failure secondary to acute diastolic CHF exac. Pt presented to ER from home with increase SOB. Pt just dc'd from [facility] where she had ablation and pacer placement. NICOLE RODRIGUEZ in to pt room to discuss dc planning. Pt reports she does not have O2 at home. Pt states should she need O2, she would prefer [facility] as this is where her other DME is from. Pt denied need for DME list. Verified this with dtr Ciera. Pt states she was taking her meds as prescribed. Pt did not have time in between hospitalizations for PCP follow up. Pt has been provided with [facility] HHC list per SW. Family to come in this evening to discuss with pt and make choice of agency. NICOLE RODRIGUEZ to follow up in the morning. DC PLAN: HHC with SN, PT and OT. Pt agreeable to this plan. [facility] Palliative Care Screening Tool completed due to [place] [facility] and re admit. Pt met criteria. Referral faxed to Palliative. Confirmed receipt by phone call to Stephie.
--- NOTE | 2020-08-24 14:17 | PN_ITS ---
<Tila Aguilera ONLINE MARKETING MANAGER - Last Filed: 08/24/20 14:24> Patient Problems: Active and Suspected Problems (Last Reviewed 08/17/20 @ 22:06 by Tiesha macias NP-C) Acute respiratory failure with hypoxia (Acute) S/P cardiac pacemaker procedure (Acute) Acute congestive heart failure (Acute) Subjective: Patient seen and examined. Reports improvement in breathing. Reports continued generalized weakness and worsening tremors however states she feels she can go home with her daughter at discharge with home health. - Physical Exam Vitals/I&O's: Vital Signs Temp Pulse Resp BP Pulse Ox 98.4 F 95 16 138/78 H 93 08/24/20 08:53 08/24/20 12:59 08/24/20 12:59 08/24/20 08:53 08/24/20 09:13 Oxygen Flow Rate (L/min) 2 Oxygen Delivery Method Nasal Cannula Weight: 151 lb 0.266 oz Body Mass Index (BMI) 26.7 Finger Stick Blood Glucose 182 Intake and Output for Last 24 Hours 08/22/20 08/23/20 08/24/20 23:59 23:59 23:59 Intake Total 0 / 0 50 / 110 120 / 120 Output Total 0 / 0 950 / 1150 350 / 350 Balance 0 / 0 -900 / -1040 -230 / -230 General: Alert, Oriented x3, Cooperative HEENT: Atraumatic, PERRLA, EOMI, Normocephalic Neck: Supple, No JVD, Negative Carotid Bruits Lungs: Clear to auscultation, Diminished Cardiovascular: - - Paced rhythm Abdomen: Bowel Sounds Present, Soft, Non Tender, Non-Distended Extremities: No clubbing, No cyanosis, No edema Skin: No rashes, No breakdown, - - Left chest ecchymosis from recent pacemaker placement Musculoskeletal: No Tenderness to Palpation of Joints or Extremities Neurological: Cranial nerves II-XII grossly intact, Neuro grossly intact Psych/Mental Status: Normal Affect, Appropriate Laboratory Results 08/24/20 05:24: Sodium 136, Potassium 3.7, Chloride 98, Carbon Dioxide 32.0, Anion Gap 6, BUN 18, Creatinine 1.07 H, Estim Creat Clear Calc 32.95, Est GFR (MDRD) Af Amer 63, Est GFR (MDRD) Non-Af 52 L, BUN/Creatinine Ratio 16.8, Glucose 101, Calcium 8.6, Total Bilirubin 1.40 H, AST 42 H, ALT 175 H, Alkaline Phosphatase 122 H, Total Protein 6.3 L, Albumin 2.9 L, Globulin 3.4, Albumin/Globulin Ratio 0.9 Current Medications Acetaminophen (Acetaminophen 325 Mg Tablet) 650 mg PO Q6H PRN PRN PRN Reason: Pain Score 1-10/Temp > 100.7 F Albuterol Sulfate (Albuterol 2.5 Mg/3 Ml Vial.Neb.) 2.5 mg INHALATION Q2H PRN PRN PRN Reason: Dyspnea, wheezing Albuterol/Ipratropium (Ipratropium/Albuterol Sulfate 3 Ml Ampul.Neb) 3 ml INHALATION Q6H.RT [facility] Last Admin: 08/24/20 12:59 Dose: 3 ml Documented by: Amlodipine Besylate (Amlodipine 2.5 Mg Tablet) 2.5 mg PO DAILY [facility] Last Admin: 08/24/20 09:01 Dose: 2.5 mg Documented by: Aspirin (Aspirin E.C. 81 Mg Tablet) 81 mg PO DAILY@0800 [facility] Last Admin: 08/24/20 07:58 Dose: 81 mg Documented by: Atorvastatin Calcium (Atorvastatin Calcium 40 Mg Tablet) 40 mg PO QHS [facility] Last Admin: 08/23/20 21:02 Dose: 40 mg Documented by: Calcium/Vitamin D (Calcium Carb/Vitamin D 1 Tablet Tablet) 1 tablet PO DAILY [facility] Last Admin: 08/24/20 09:01 Dose: 1 tablet Documented by: Clopidogrel Bisulfate (Clopidogrel Bisulfate 75 Mg Tablet) 75 mg PO DAILY [facility] Last Admin: 08/24/20 09:01 Dose: 75 mg Documented by: Furosemide (Furosemide 40 Mg/4 Ml Vial) 40 mg IV BID@1000,1800 [facility] Last Admin: 08/24/20 09:00 Dose: 40 mg Documented by: Gabapentin (Gabapentin 600 Mg Tablet) 600 mg PO BID [facility] Last Admin: 08/24/20 09:01 Dose: 600 mg Documented by: Guaifenesin (Guaifenesin 10 Ml Udc (200mg/10ml)) 20 ml PO Q4H PRN PRN PRN Reason: COUGH Hydralazine HCl (Hydralazine 20 Mg/Ml Vial) 10 mg IV Q4H PRN PRN PRN Reason: SBP > 160 Sodium Chloride () 250 mls @ 15 mls/hr IV .[id number] PRN PRN Reason: Saline Flush Sodium Chloride () 250 mls @ 15 mls/hr IV .[id number] PRN PRN Reason: Additional IVPB Infusion Isosorbide Mononitrate (Isosorbide Mononitrate 60 Mg Tablet) 60 mg PO DAILY [facility] Last Admin: 08/24/20 09:01 Dose: 60 mg Documented by: Levothyroxine Sodium (Levothyroxine 50 Mcg Tablet) 50 mcg PO DAILY@0600 [facility] Last Admin: 08/24/20 05:59 Dose: 50 mcg Documented by: Loratadine (Loratadine 10 Mg Tablet) 10 mg PO DAILY [facility] Last Admin: 08/24/20 09:01 Dose: 10 mg Documented by: Losartan Potassium (Losartan Potassium 50 Mg Tablet) 50 mg PO BID [facility] Last Admin: 08/24/20 09:01 Dose: 50 mg Documented by: Melatonin (Melatonin 10 Mg Tablet) 10 mg PO QHS PRN PRN PRN Reason: SLEEP Last Admin: 08/23/20 00:41 Dose: 10 mg Documented by: Morphine Sulfate (Morphine 2 Mg/Ml Syringe) 2 mg IV Q3H PRN PRN PRN Reason: Pain Score 6-10 Nitroglycerin (Nitroglycerin (Inpatient Use) 0.4 Mg Tab.Subl) 0.4 mg SL Q5M PRN PRN Reason: CARDIAC/CHEST PAIN Ondansetron HCl (Ondansetron 4 Mg/2 Ml Vial) 4 mg IV Q8H PRN PRN PRN Reason: NAUSEA/VOMITING Oxycodone HCl (Oxycodone 5 Mg Tablet) 5 mg PO Q4H PRN PRN PRN Reason: Pain Score 4-5 Last Admin: 08/23/20 09:22 Dose: 5 mg Documented by: Pantoprazole Sodium (Pantoprazole Sodium 40 Mg Tablet) 40 mg PO DAILY [facility] Last Admin: 08/24/20 09:01 Dose: 40 mg Documented by: Potassium Chloride (Potassium Chloride Oral Tablet 20 Meq) 20 meq PO BID [facility] Last Admin: 08/24/20 09:01 Dose: 20 meq Documented by: Pramipexole Dihydrochloride (Pramipexole Di-Hcl 0.25 Mg Tablet) 0.25 mg PO BID PRN PRN PRN Reason: SCIATICA Prochlorperazine Edisylate (Prochlorperazine 10 Mg/2 Ml Vial) 5 mg IV Q4H PRN PRN PRN Reason: Breakthrough Nausea/Vomiting Psyllium Hydrophilic Mucilloid (Psyllium 1 Packet) 1 packet PO DAILY PRN PRN PRN Reason: Constipation Senna/Docusate Sodium (Senna/Docusate Sodium 1 Tablet) 2 tablet PO BID PRN PRN PRN Reason: Constipation Last Admin: 08/23/20 21:02 Dose: 2 tablet Documented by: Sertraline HCl (Sertraline 50 Mg Tablet) 25 mg PO DAILY [facility] Last Admin: 08/24/20 09:01 Dose: 25 mg Documented by: Sertraline HCl (Sertraline 50 Mg Tablet) 50 mg PO DAILY [facility] Last Admin: 08/24/20 09:01 Dose: 50 mg Documented by: Sodium Chloride (0.9% Saline Lock 10 Ml Syringe) 10 - 40 ml IV UD PRN PRN Reason: SALINE FLUSH Sucralfate (Sucralfate 1 Gm Tablet) 1 gm PO BIDAC [facility] Last Admin: 08/24/20 06:52 Dose: 1 gm Documented by: Throat Lozenges (Benzocaine/Menthol 1 Lozenge) 1 lozenge MUCOUS MEM Q2H PRN PRN PRN Reason: SORE THROAT Trazodone HCl (Trazodone 50 Mg Tablet) 50 mg PO QHS PRN PRN PRN Reason: SLEEP Last Admin: 08/23/20 21:02 Dose: 50 mg Documented by: Medical Necessity - Tobacco Use Smoking Status: Never smoker Tobacco Use: Non-smoker Assessment/Plan All Active Problems (Last Reviewed 08/17/20 @ 22:06 by Tiesha Rea, ONLINE MARKETING MANAGER-C) Atrial fibrillation with RVR (Acute) Elevated liver enzymes (Acute) Acute respiratory failure with hypoxia (Acute) S/P cardiac pacemaker procedure (Acute) Acute congestive heart failure (Acute) Bilateral pleural effusion (Acute) Hypoxemia (Acute) Weakness (Acute) Shortness of breath (Acute) NSTEMI (non-ST elevated myocardial infarction) (Resolved) 1. Acute on chronic hypoxic respiratory failure secondary to acute on chronic heart failure with preserved ejection fraction-chest x-ray consistent with congestion. BNP greater than 1000. Echocardiogram May 2020 demonstrated an EF of 65%, mild mitral valve insufficiency, mild to moderate tricuspid valve insufficiency, RVSP estimated to be 35 mmHg. Repeat echocardiogram pending. Continue IV Lasix. Strict I&O. Daily weight. PT/OT. Walking pulse ox prior to discharge. 2. Indeterminate troponin-likely demand ischemia related to #1. Enzymes did not trend. Repeat echo pending. 3. Transaminitis-unclear etiology. Possibly congestion related #1. Recent gallbladder ultrasound 08/17/2020 with mild ascites, multiple gallstones, gallbladder thickening. CT of abdomen pelvis showed cholelithiasis. LFTs trending down. 4. Paroxysmal atrial fibrillation-recent AV node cardiac ablation and pacemaker placement at [facility]. Restart Eliquis 08/25/2020. 5. CAD with history of PCI-continue aspirin, Plavix, statin, losartan. 6. Chronic kidney disease stage IIIa-stable, trend BMP. 7. Hypothyroidism-continue Synthroid. 8. Hypertension-continue amlodipine, isosorbide, losartan. 9. Hyperlipidemia-continue statin. 10. ALVERTO-on BiPAP nightly. 11. Anxiety/depression-on sertraline, trazodone. 12. GERD-continue PPI, Carafate. 13. Tremors-patient reports this is chronic however recently worsened. Patient states she typically takes as needed Mirapex. Recommend outpatient follow-up with neurology. DVT prophylaxis-SCDs, resume Eliquis 08/25/2020. Discharge planning: Possible discharge 08/25/2020 if patient continues to improve. Plan for home with home health at discharge. This patient was seen by BLANCO Duckworth under the supervision of Dr. Winter. <Luis Carlos Winter - Last Filed: 08/24/20 14:41> - Physical Exam Vitals/I&O's: Vital Signs Temp Pulse Resp BP Pulse Ox 36.9 C 95 16 138/78 H 93 08/24/20 08:53 08/24/20 12:59 08/24/20 12:59 08/24/20 08:53 08/24/20 09:13 Oxygen Flow Rate (L/min) 2 Oxygen Delivery Method Nasal Cannula Weight: 68.5 kg Body Mass Index (BMI) 26.7 Finger Stick Blood Glucose 182 Intake and Output for Last 24 Hours 08/22/20 08/23/20 08/24/20 23:59 23:59 23:59 Intake Total 0 / 0 50 / 110 120 / 120 Output Total 0 / 0 950 / 1150 350 / 350 Balance 0 / 0 -900 / -1040 -230 / -230 General: Alert, Cooperative HEENT: Atraumatic, Normocephalic Lungs: Clear to auscultation, Diminished Cardiovascular: - Abdomen: Bowel Sounds Present, Soft, Non Tender, Non-Distended Extremities: No clubbing, No cyanosis, No edema Skin: No rashes, No breakdown, - Neurological: Cranial nerves II-XII grossly intact, Neuro grossly intact Psych/Mental Status: Normal Affect, Appropriate Laboratory Results 08/24/20 05:24: Sodium 136, Potassium 3.7, Chloride 98, Carbon Dioxide 32.0, Anion Gap 6, BUN 18, Creatinine 1.07 H, Estim Creat Clear Calc 32.95, Est GFR (MDRD) Af Amer 63, Est GFR (MDRD) Non-Af 52 L, BUN/Creatinine Ratio 16.8, Glucose 101, Calcium 8.6, Total Bilirubin 1.40 H, AST 42 H, ALT 175 H, Alkaline Phosphatase 122 H, Total Protein 6.3 L, Albumin 2.9 L, Globulin 3.4, Albumin/Globulin Ratio 0.9 Current Medications Acetaminophen (Acetaminophen 325 Mg Tablet) 650 mg PO Q6H PRN PRN PRN Reason: Pain Score 1-10/Temp > 100.7 F Albuterol Sulfate (Albuterol 2.5 Mg/3 Ml Vial.Neb.) 2.5 mg INHALATION Q2H PRN PRN PRN Reason: Dyspnea, wheezing Albuterol/Ipratropium (Ipratropium/Albuterol Sulfate 3 Ml Ampul.Neb) 3 ml INHALATION Q6H.RT [facility] Last Admin: 08/24/20 12:59 Dose: 3 ml Documented by: Amlodipine Besylate (Amlodipine 2.5 Mg Tablet) 2.5 mg PO DAILY [facility] Last Admin: 08/24/20 09:01 Dose: 2.5 mg Documented by: Apixaban (Apixaban 2.5 Mg Tablet) 2.5 mg PO BID [facility] Aspirin (Aspirin E.C. 81 Mg Tablet) 81 mg PO DAILY@0800 [facility] Last Admin: 08/24/20 07:58 Dose: 81 mg Documented by: Atorvastatin Calcium (Atorvastatin Calcium 40 Mg Tablet) 40 mg PO QHS [facility] Last Admin: 08/23/20 21:02 Dose: 40 mg Documented by: Calcium/Vitamin D (Calcium Carb/Vitamin D 1 Tablet Tablet) 1 tablet PO DAILY [facility] Last Admin: 08/24/20 09:01 Dose: 1 tablet Documented by: Clopidogrel Bisulfate (Clopidogrel Bisulfate 75 Mg Tablet) 75 mg PO DAILY [facility] Last Admin: 08/24/20 09:01 Dose: 75 mg Documented by: Furosemide (Furosemide 40 Mg/4 Ml Vial) 40 mg IV BID@1000,1800 [facility] Last Admin: 08/24/20 09:00 Dose: 40 mg Documented by: Gabapentin (Gabapentin 600 Mg Tablet) 600 mg PO BID [facility] Last Admin: 08/24/20 09:01 Dose: 600 mg Documented by: Guaifenesin (Guaifenesin 10 Ml Udc (200mg/10ml)) 20 ml PO Q4H PRN PRN PRN Reason: COUGH Hydralazine HCl (Hydralazine 20 Mg/Ml Vial) 10 mg IV Q4H PRN PRN PRN Reason: SBP > 160 Sodium Chloride () 250 mls @ 15 mls/hr IV .[id number] PRN PRN Reason: Saline Flush Sodium Chloride () 250 mls @ 15 mls/hr IV .[id number] PRN PRN Reason: Additional IVPB Infusion Isosorbide Mononitrate (Isosorbide Mononitrate 60 Mg Tablet) 60 mg PO DAILY [facility] Last Admin: 08/24/20 09:01 Dose: 60 mg Documented by: Levothyroxine Sodium (Levothyroxine 50 Mcg Tablet) 50 mcg PO DAILY@0600 [facility] Last Admin: 08/24/20 05:59 Dose: 50 mcg Documented by: Loratadine (Loratadine 10 Mg Tablet) 10 mg PO DAILY [facility] Last Admin: 08/24/20 09:01 Dose: 10 mg Documented by: Losartan Potassium (Losartan Potassium 50 Mg Tablet) 50 mg PO BID [facility] Last Admin: 08/24/20 09:01 Dose: 50 mg Documented by: Melatonin (Melatonin 10 Mg Tablet) 10 mg PO QHS PRN PRN PRN Reason: SLEEP Last Admin: 08/23/20 00:41 Dose: 10 mg Documented by: Morphine Sulfate (Morphine 2 Mg/Ml Syringe) 2 mg IV Q3H PRN PRN PRN Reason: Pain Score 6-10 Nitroglycerin (Nitroglycerin (Inpatient Use) 0.4 Mg Tab.Subl) 0.4 mg SL Q5M PRN PRN Reason: CARDIAC/CHEST PAIN Ondansetron HCl (Ondansetron 4 Mg/2 Ml Vial) 4 mg IV Q8H PRN PRN PRN Reason: NAUSEA/VOMITING Oxycodone HCl (Oxycodone 5 Mg Tablet) 5 mg PO Q4H PRN PRN PRN Reason: Pain Score 4-5 Last Admin: 08/23/20 09:22 Dose: 5 mg Documented by: Pantoprazole Sodium (Pantoprazole Sodium 40 Mg Tablet) 40 mg PO DAILY [facility] Last Admin: 08/24/20 09:01 Dose: 40 mg Documented by: Potassium Chloride (Potassium Chloride Oral Tablet 20 Meq) 20 meq PO BID [facility] Last Admin: 08/24/20 09:01 Dose: 20 meq Documented by: Pramipexole Dihydrochloride (Pramipexole Di-Hcl 0.25 Mg Tablet) 0.25 mg PO BID PRN PRN PRN Reason: SCIATICA Prochlorperazine Edisylate (Prochlorperazine 10 Mg/2 Ml Vial) 5 mg IV Q4H PRN PRN PRN Reason: Breakthrough Nausea/Vomiting Psyllium Hydrophilic Mucilloid (Psyllium 1 Packet) 1 packet PO DAILY PRN PRN PRN Reason: Constipation Senna/Docusate Sodium (Senna/Docusate Sodium 1 Tablet) 2 tablet PO BID PRN PRN PRN Reason: Constipation Last Admin: 08/23/20 21:02 Dose: 2 tablet Documented by: Sertraline HCl (Sertraline 50 Mg Tablet) 25 mg PO DAILY [facility] Last Admin: 08/24/20 09:01 Dose: 25 mg Documented by: Sertraline HCl (Sertraline 50 Mg Tablet) 50 mg PO DAILY [facility] Last Admin: 08/24/20 09:01 Dose: 50 mg Documented by: Sodium Chloride (0.9% Saline Lock 10 Ml Syringe) 10 - 40 ml IV UD PRN PRN Reason: SALINE FLUSH Sucralfate (Sucralf[facility] 1 Gm Tablet) [facility] Last Admin: 08/24/20 06:52 Dose: 1 gm Documented by: Throat Lozenges (Benzocaine/Menthol 1 Lozenge) 1 lozenge MUCOUS MEM Q2H PRN PRN PRN Reason: SORE THROAT Trazodone HCl (Trazodone 50 Mg Tablet) 50 mg PO QHS PRN PRN PRN Reason: SLEEP Last Admin: 08/23/20 21:02 Dose: 50 mg Documented by: Assessment/Plan Patient seen and examined independently. Data reviewed. I agree with the above note by the nurse practitioner. 1. Acute on chronic hypoxic respiratory failure: 2/2 CHF. EF 65% 2. elevated troponin 3. Acute HF: on furosemide. follow up echo. Inpatient E&M: [id number] Subs Hosp L2
[2020-08-24] MEDS: Acetaminophen 325 MG Tablet 650 MG PO (15:00)
[2020-08-24] MEDS: 0.9% Saline Lock 10 ML Syringe IV (17:33)
[2020-08-24] MEDS: Atorvastatin Calcium 40 MG Tablet PO ×2 (20:45→20:46)
[2020-08-24] MEDS: traZODone 50 MG Tablet PO (20:56)
--- NOTE | 2020-08-24 22:53 | NURSING ---
This RN gave evening medications early per patient request.
[2020-08-25] VITALS (13 sets, daily range): BP systolic 141–146; BP diastolic 60–75; PULSE 88–101; RESP 12–20; TEMP 36.9–37.1; O2SAT 89–97
[2020-08-25] MEDS: Levothyroxine 50 MCG Tablet PO (05:33)
[2020-08-25] MEDS: Ipratropium/Albuterol Sulfate 3 ML AMPUL.NEB INHALATION (05:50)
[2020-08-25] MEDS: Sucralfate 1 GM Tablet PO (07:15)
[2020-08-25 08:26] LABS: ALB/GLOB Ratio 0.8 RATIO (0.9-2.4); AST(SGOT) 33 U/L (15-37); Alanine Aminotransfer ALT/SGPT 141 U/L (13-56); Albumin, Serum 2.8 g/dL (3.2-5.0); Alkaline Phosphatase 133 U/L (45-117); Anion Gap 6 (5-15); BUN 18 mg/dL (7-18); BUN/Creat Ratio 18.8 RATIO (10-20); Calcium,Total 8.7 mg/dL (8.5-10.1); Chloride 100 mmol/L (98-107); Creatinine, Serum 0.96 mg/dL (0.55-1.02); EST Glomerular Filtration Rate 59 mL/min (>60); Est Glom Filt Rate - Afr Amer 72 mL/min (>60); Estimated Creatinine Clearance 36.73 ml/min; Globulin 3.4 g/dL (2.2-4.2); Glucose 113 mg/dL (74-106); Potassium 4.2 mmol/L (3.5-5.1); Protein, Total 6.2 g/dL (6.4-8.2); Sodium Level 137 mmol/L (136-145)
--- NOTE | 2020-08-25 09:02 | CASEMGMT ---
Addendum entered by Ely Ivory 08/25/20 13:52: Pt does not qualify for home O2. Pt is active with [facility]. Notified Genaro of [facility] that pt is being dc'd today to her dtr's. Original Note: RN CM in to pt room. Pt sitting up in chair. Pt states family was in lastnight and has marked the HHC that is preferred. [facility] Pt confirms the choices. IDEGO Toro intake at [facility], referral given. Will follow pt for O2 needs.
[2020-08-25] MEDS: Losartan Potassium 50 MG Tablet PO (09:05)
[2020-08-25] MEDS: Loratadine 10 MG Tablet PO (09:05)
[2020-08-25] MEDS: Aspirin E.C. 81 MG Tablet PO (09:05)
[2020-08-25] MEDS: APIXABAN 2.5 MG TABLET PO (09:05)
[2020-08-25] MEDS: Clopidogrel Bisulfate 75 MG Tablet PO (09:06)
[2020-08-25] MEDS: Potassium Chloride Oral Tablet 20 MEQ PO (09:06)
[2020-08-25] MEDS: amLODIPine 2.5 MG Tablet PO (09:06)
[2020-08-25] MEDS: Isosorbide Mononitrate 60 MG Tablet PO (09:06)
[2020-08-25] MEDS: Gabapentin 600 MG Tablet PO (09:06)
[2020-08-25] MEDS: Calcium Carb/Vitamin D 1 TABLET Tablet PO (09:06)
--- NOTE | 2020-08-25 09:06 | PCM.PN.CARD ---
Subjective Subjective: The patient is awake and alert. She looks better and states she feels better today. Objective Data Objective Data Vital Signs: Vital Signs Temp Pulse Resp BP Pulse Ox 99.5 F H 92 16 118/53 L 95 08/24/20 21:00 08/24/20 21:00 08/24/20 21:00 08/24/20 21:00 08/25/20 07:17 Oxygen Flow Rate (L/min) 2.5 Oxygen Delivery Method Nasal Cannula Weight: 151 lb 0.266 oz Body Mass Index (BMI) 26.7 Finger Stick Blood Glucose 182 Intake & Output: Intake and Output for Last 24 Hours 08/23/20 08/24/20 08/25/20 23:59 23:59 23:59 Intake Total 50 / 110 760 / 1000 240 / 240 Output Total 950 / 1150 1400 / 1400 Balance -900 / -1040 -640 / -400 240 / 240 Lab / Micro Data Result Diagrams: 08/23/20 04:20 08/25/20 06:45 Labs: Laboratory Results - last 24 hr 08/25/20 06:45 Sodium 137 Potassium 4.2 Chloride 100 Carbon Dioxide 31.0 Anion Gap 6 BUN 18 Creatinine 0.96 Estim Creat Clear Calc 36.73 Est GFR (MDRD) Af Amer 72 Est GFR (MDRD) Non-Af 59 L BUN/Creatinine Ratio 18.8 Glucose 113 H Calcium 8.7 Total Bilirubin 1.20 H AST 33 ALT 141 H Alkaline Phosphatase 133 H Total Protein 6.2 L Albumin 2.8 L Globulin 3.4 Albumin/Globulin Ratio 0.8 L Radiography Diagnostic Testing: Radiology Impression Echocardiogram 08/23/20 20:21 Interpretation Summary The study was technically difficult. Contrast injection was performed. Segmental dysfunction with preserved ejection fraction (see wall motion). The estimated ejection fraction is 60 %. Apical wall motion abnormality may reflect pacemaker activation. The left atrium is moderately enlarged. There is mild mitral annular calcification. Anterior leaflet diffuse mitral valve thickening. Moderate (2+) mitral valve insufficiency. Mild to moderate (1-2+) tricuspid valve insufficiency. Mild focal aortic valve calcification. Calcified aortic root. Echo lucency compatible with a pleural effusion. Right ventricular systolic pressure estimated to be 58 mmHg. Unable to assess diastolic dysfunction. ICD or pacer leads identified within the right atrium ICD or pacer leads identified within the right ventricle. Ordering Physician: Digna Castro Referring Physician: DANIELA REINOSO Performed By: Luanne Rosa, FABIANA, RVT Rhythm Strip Rhythm Strip: PACED Rate: 90 Ectopy: PVC(s) Physical Exam Const alert and oriented x3 Orientation / Consciousness: awake HEENT normocephalic and head/scalp atraumatic Eyes PERRL and EOMs intact bilaterally Neck full ROM and supple Chest Chest: left pectoral incision Resp Auscultation: diminished lung sounds localized (Basis) Cardio regular rate and regular rhythm Rate: regular rate Rhythm: regular rhythm Heart Sounds: S1 normal and S2 normal GI normal to inspection, nondistended, normoactive bowel sounds Extremity General Extremity: edema bilateral lower extremity Details: trace 08/25/20 06:45: Sodium 137, Potassium 4.2, Chloride 100, Carbon Dioxide 31.0, Anion Gap 6, BUN 18, Creatinine 0.96, Est GFR (MDRD) Af Amer 72, Est GFR (MDRD) Non-Af 59 L, BUN/Creatinine Ratio 18.8, Glucose 113 H, Calcium 8.7, Total Bilirubin 1.20 H Rhythm: Electronic ventricular paced rhythm ECHO: As noted Assessment & Plan Assessment/Plan (1) Acute congestive heart failure: Status: Acute Code(s): I50.9 - Heart failure, unspecified Qualifiers: Heart failure type: diastolic Qualified Code(s): I50.31 - Acute diastolic (congestive) heart failure Plan: The patient presented with acute on chronic CHF thought to be with preserved ejection fraction. The patient has been treated medically. She does appear to be improving. She will continue medical therapy which does include her diuretic therapy. (2) Atrial fibrillation with RVR: Status: Acute Code(s): I48.91 - Unspecified atrial fibrillation Plan: The patient has a history of atrial fibrillation which was difficult to control with medications as well as with synchronized biphasic DC cardioversion. She is now status post AV node ablation with permanent pacemaker placement. She should continue anticoagulant therapy as long as the risk-benefit ratio is in her favor. (3) Hx of atrioventricular node ablation: Status: Acute Code(s): Z98.890 - Other specified postprocedural states Plan: The patient is status post AV node ablation at [facility]. She is now status post permanent pacemaker placement. (4) S/P cardiac pacemaker procedure: Status: Acute Code(s): Z95.0 - Presence of cardiac pacemaker Plan: The patient's underlying rhythm appears to be appropriate status post AV node ablation with permanent pacemaker being in electronic ventricular paced rhythm. (5) Atherosclerotic heart disease of [place] coronary artery without angina pectoris: Status: Chronic Code(s): I25.10 - Atherosclerotic heart disease of [place] coronary artery without angina pectoris Qualifiers: [place] vs. transplanted heart: unspecified whether [place] or transplanted heart Qualified Code(s): I25.10 - Atherosclerotic heart disease of [place] coronary artery without angina pectoris Plan: The patient has a history of underlying CAD. At the moment she is continuing medical management. (6) Presence of stent in coronary artery: Status: Chronic Code(s): Z95.5 - Presence of coronary angioplasty implant and graft Plan: The patient has a history of PCI. Again at the moment she will continue medical therapy. (7) Pure hypercholesterolemia: Status: Chronic Code(s): E78.00 - Pure hypercholesterolemia, unspecified Plan: The patient should continue risk factor evaluation care as tolerated. (8) Essential hypertension: Status: Chronic Code(s): I10 - Essential (primary) hypertension Plan: The patient's blood pressure will be followed. Her medications can be adjusted accordingly.
[2020-08-25] MEDS: Furosemide 40 MG/4 ML Vial IV (09:07)
[2020-08-25] MEDS: Sertraline 50 MG Tablet 25 MG PO (09:07)
[2020-08-25] MEDS: Sertraline 50 MG Tablet PO (09:07)
[2020-08-25] MEDS: Pantoprazole Sodium 40 MG Tablet PO (09:07)
[2020-08-25] MEDS: 0.9% Saline Lock 10 ML Syringe IV (09:12)
[2020-08-25] MEDS: Senna/Docusate Sodium 1 Tablet 2 TABLET PO (09:12)
--- NOTE | 2020-08-25 10:45 | PCM.CONS.GEN ---
Assessment & Plan Assessment/Plan (1) Weakness: Status: Acute Code(s): R53.1 - Weakness (2) Shortness of breath: Status: Acute Code(s): R06.02 - Shortness of breath (3) Acute congestive heart failure: Status: Acute Code(s): I50.9 - Heart failure, unspecified Qualifiers: Heart failure type: diastolic Qualified Code(s): I50.31 - Acute diastolic (congestive) heart failure (4) Bilateral pleural effusion: Status: Acute Code(s): J90 - Pleural effusion, not elsewhere classified (5) AMS (altered mental status): Status: Acute Code(s): R41.82 - Altered mental status, unspecified Qualifiers: Altered mental status type: unspecified Qualified Code(s): R41.82 - Altered mental status, unspecified Plan: 84 yr old F with AF RVR, acute respiratory failure, CHF, seen for initial palliative consultation for symptom management of weakness with significant decline in ADLs, SOB, and frequent hospitalizations. She is obviously at high risk for readmission to the hospital. Discharging home w/ her daughter, which may help with that. I suspect she will continue to require more and more assistance. SOB is currently controlled, but will d/c with home oxygen supplementation. Advised to elevate legs, continue therapy, call with any increase in shortness of breath, swelling, or change in status. Palliative goals are reduce symptoms, avoid hospitalizations when possible, and to improve quality of life. She will require frequent RN and/or GUARD ENTRANCE REGISTRAR visits at first, we will follow her as an outpatient. Thank you for the opportunity to participate in this patient's care, please do not hesitate to contact [facility] with any questions or concerns. We will have our nurse f/u about 3 days after discharge from the hospital. >50% of face to face dedicated to education and counseling regarding her comorbidities, expected prognosis, and plan of care moving forward. start time:1045 End time: 1140 HPI Consult Data Date of Consult: 08/26/20 HPI Narrative HPI Narrative: CAMILO SRIVASTAVA, is a 84 F with past medical history as below, presented to the ED 08/17/20 with complaints of increased weakness and altered mental status. Being seen today for initial palliative care consultation secondary to shortness of breath, possible dementia, significant decrease in ADLs, and frequent hospitalizations. In 2020, patient has been hospitalized several times for congestive heart failure, A. fib RVR, NOLBERTO, and bilateral pleural effusions. She follows with Dr. Gomes, cardiology. She had a recent AV belle ablation and pacemaker placement at [facility]. She then presented 08/23/20 with complaints of shortness of breath. Her BNP was elevated and patient was hypoxic. She was admitted for further evaluation and management. Patient was found to have elevated troponin, likely demand ischemia related to her heart failure and acute hypoxic respiratory failure. Labs showed transaminitis, she had a recent gallbladder ultrasound 08/17 with mild ascites, multiple gallstones, gallbladder thickening. CT of the abdomen/pelvis at that time showed cholelithiasis. Her blood work seems to be improving. Patient is feeling better after being diuresed and using bronchodilators. She does continue to have generalized weakness and progressive tremors. Takes when necessary Mirapex. The plan is for her to discharge home with her daughter, Ciera Vora, instead of returning to her home. She will likely have home health care. Repeat echocardiogram showed an EF of 60%, segmental dysfunction with preserved EF, moderately enlarged left atrium, moderate MVI, mild to moderate TBI, pleural effusion, RVSP estimated at 58 mmHg. No chest pain, palpitations, orthopnea. Some lightheadedness and shortness of breath intermittently, but this seems to have improved. She has 2+ pitting lower extremity edema, legs are taut and shiny. Patient reports she has had tremors for quite some time, she had a neurologist at one point she thinks. Patient asking appropriate questions about palliative care, explained in great detail. Reports she does not have a whole lot of pain, medication given in the hospital has taken care of it. 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 NSTEMI (non-ST elevated myocardial infarction) ALVERTO on CPAP Presence of stent in coronary artery (~08/20/19) Pure hypercholesterolemia Shortness of breath Weakness Home Medications atorvastatin 40 mg PO DAILY 08/19/19 [History Last Taken 08/17/20] clopidogrel 75 mg PO DAILY 08/19/19 [History Last Taken 08/17/20] gabapentin 600 mg PO BID 08/19/19 [History Last Taken 08/16/20] losartan 50 mg PO BID 08/19/19 [History Last Taken 08/17/20] pramipexole 0.25 mg PO BID PRN PRN 08/19/19 [History Last Taken 08/17/20] aspirin 81 mg PO DAILY@0800 tab 08/21/19 [Rx Last Taken 08/17/20] trazodone 50 mg tablet 50 mg PO QHS PRN 12/30/19 [History Last Taken 08/16/20] calcium carbonate-vitamin D3 1 tab PO DAILY 05/05/20 [History Last Taken 08/17/20] fexofenadine 60 mg PO DAILY 05/05/20 [History Last Taken Unknown] flaxseed oil 1,000 mg PO DAILY 05/05/20 [History Last Taken 08/17/20] obzfecbe-ucs-UX-lycopen-lutein 1 tab PO DAILY 05/05/20 [History Last Taken 08/17/20] nitroglycerin 0.4 mg SL X1 05/05/20 [History Last Taken Unknown] omega-3 fatty acids-fish oil 1 ea PO BID 05/05/20 [History Last Taken 08/17/20] pantoprazole 40 mg PO DAILY 05/05/20 [History Last Taken 08/17/20] sertraline 25 mg PO DAILY 05/05/20 [History Last Taken 08/16/20] vitamin B complex 1 tab PO DAILY 05/05/20 [History Last Taken 08/17/20] melatonin 10 mg PO PRN PRN 05/06/20 [History Last Taken 08/16/20] amlodipine 2.5 mg tablet 2.5 mg PO DAILY #90 tab 06/01/20 [Rx Last Taken 08/17/20] apixaban 2.5 mg tablet 2.5 mg PO BID #180 tab 07/01/20 [Rx Last Taken 08/17/20] potassium chloride 20 mEq tablet,extended release(part/cryst) 20 meq PO BID #180 tab 07/01/20 [Rx Last Taken 08/17/20] isosorbide mononitrate 60 mg tablet,extended release 24 hr 60 mg PO DAILY 07/08/20 [History Last Taken 08/17/20] famotidine 20 mg tablet 20 mg PO QHS PRN 08/07/20 [History Last Taken 08/16/20] levothyroxine 50 mcg tablet 50 mcg PO DAILY 08/07/20 [History Last Taken 08/17/20] hydrocodone-acetaminophen 1 tablet PO Q6H PRN PRN 08/17/20 [History Last Taken 3 Days Ago ~08/14/20] sertraline 50 mg PO DAILY 08/17/20 [History Last Taken 08/16/20] magnesium hydroxide 15 ml PO DAILY PRN PRN 08/22/20 [History Last Taken Unknown] sour ro extract 1,000 mg PO DAILY 08/22/20 [History Last Taken Unknown] sucralfate 1 gm PO BID 08/22/20 [History Last Taken Unknown] turmeric (bulk) 1 mg PO DAILY 08/22/20 [History Last Taken Unknown] furosemide 40 mg PO BID #0 tab 08/25/20 [Rx Last Taken Unknown] Allergy/AdvReac Type Severity Reaction Status Date / Time enalaprilat [From Vasotec] Allergy Other Verified 08/22/20 21:45 ezetimibe [From Zetia] AdvReac Other Verified 08/22/20 21:45 meperidine [From Demerol] AdvReac Nausea Verified 08/22/20 21:45 mirtazapine [From Remeron] AdvReac Other Verified 08/22/20 21:45 trazodone AdvReac Other Verified 08/22/20 21:45 zolpidem [From Ambien] AdvReac Other Verified 08/22/20 21:45 Family History Father Heart disease Brother Diabetes Mother COPD (chronic obstructive pulmonary disease) Grandfather Heart disease Surgical History History of appendectomy History of carpal tunnel surgery History of left breast biopsy History of total hysterectomy Hx of atrioventricular node ablation Presence of coronary angioplasty implant and graft (~08/20/19) S/P PTCA (percutaneous transluminal coronary angioplasty) Social History Smoking Status: Never smoker alcohol intake: never substance use type: does not use caffeine: Yes Type: coffee Number of servings: 1 ROS Constitutional Constitutional: Reports systems reviewed and no addt'l complaints, except as documented Physical Exam Const alert, oriented x3 and no apparent distress General Appearance: cooperative HEENT head/scalp atraumatic Neck supple General: trachea midline Resp Auscultation: rhonchi and diminished lung sounds Cardio regular rate, S1 normal heart sound and S2 normal heart sound; Negative for regular rhythm Heart Sounds: murmur GI normal to inspection, nondistended, normoactive bowel sounds Extremity General Extremity: edema bilateral (2+ pItTiNg) lower extremity Skin General Skin Exam: dry skin Psych Appearance: appropriate Mood & Affect: flat affect Lab / Micro Data Result Diagrams: 08/23/20 04:20 08/25/20 06:45 Labs: Laboratory Results - last 24 hr 08/25/20 06:45 Sodium 137 Potassium 4.2 Chloride 100 Carbon Dioxide 31.0 Anion Gap 6 BUN 18 Creatinine 0.96 Estim Creat Clear Calc 36.73 Est GFR (MDRD) Af Amer 72 Est GFR (MDRD) Non-Af 59 L BUN/Creatinine Ratio 18.8 Glucose 113 H Calcium 8.7 Total Bilirubin 1.20 H AST 33 ALT 141 H Alkaline Phosphatase 133 H Total Protein 6.2 L Albumin 2.8 L Globulin 3.4 Albumin/Globulin Ratio 0.8 L Rhythm Strip Rhythm Strip: PACED Rate: 90 Ectopy: PVC(s)
--- NOTE | 2020-08-25 14:31 | CASEMGMT ---
Patient has a Healthcare Power of Weigher And Crusher and a Healthcare Living Will on file at [facility]. Her Healthcare Power of Weigher And Crusher is her daughter Ciera Vora and Wilmar. Danyelle Farris BRICK LOADER LYSSA
--- NOTE | 2020-08-25 14:47 | DCINST_ITS ---
Discharge Instructions Outpatient Procedure Reason For Visit: ACUTE RESPIRATORY FAILURE, CHF EXACERBATION Diet Discharge Diet: Low fat / Low cholesterol Activity Discharge Activity: Return to Normal Activity Additional Activity Instructions:: Follow post pacemaker placement instructions. Dressing / Incision Call your doctor if your incision/area has: Continuous Slow Oozing, Sudden Increased Bleeding, Increased Pain/ Swelling, Increased Redness, Foul Smelling Discharge and Swelling at the incision site Call your doctor if you observe: Fever of 101 or Higher, Shortness of breath and Chest pain Follow Up Care Test Results: Test results from this visit will be discussed in further detail at your follow-up appointment, if applicable. Discharge Plan Admission Admit Date/Time: 08/22/20 23:14 Attending Provider: Luis Carlos Winter Primary Care Provider: Gladys Pickett Consulting Providers: Digna Castro Discharge Orders/Prescriptions Prescriptions: Continued trazodone 50 mg tablet 50 mg PO QHS PRN (Reason: Sleep) RF: 0 isosorbide mononitrate 60 mg tablet extended release 24 hr 60 mg PO DAILY RF: 0 levothyroxine 50 mcg tablet 50 mcg PO DAILY RF: 0 famotidine 20 mg tablet 20 mg PO QHS PRN (Reason: BACK) RF: 0 losartan 50 MG tablet 50 mg PO BID RF: 0 atorvastatin 40 MG tablet 40 mg PO DAILY RF: 0 clopidogrel 75 MG tablet 75 mg PO DAILY RF: 0 pramipexole 0.25 MG tablet 0.25 mg PO BID PRN PRN (Reason: SCIATICA) RF: 0 gabapentin 300 MG capsule 600 mg PO BID RF: 0 aspirin 81 MG tablet 81 mg PO DAILY@0800 RF: 0 fexofenadine 60 MG tablet 60 mg PO DAILY RF: 0 calcium carbonate-vitamin D3 1 EACH tablet 1 tab PO DAILY RF: 0 flaxseed oil 1,000 MG capsule 1,000 mg PO DAILY RF: 0 pantoprazole 40 MG tablet 40 mg PO DAILY RF: 0 nitroglycerin 0.4 MG tablet 0.4 mg SL X1 RF: 0 sertraline 25 MG tablet 25 mg PO DAILY RF: 0 vitamin B complex 1 EACH tablet 1 tab PO DAILY RF: 0 crchcbxh-liv-YH-lycopen-lutein 1 EACH tablet 1 tab PO DAILY RF: 0 omega-3 fatty acids-fish oil 1 EACH capsule 1 ea PO BID RF: 0 melatonin 10 MG tablet 10 mg PO PRN PRN (Reason: Sleep) RF: 0 hydrocodone-acetaminophen 1 EACH tablet 1 tablet PO Q6H PRN PRN (Reason: BACK) RF: 0 sertraline 50 MG tablet 50 mg PO DAILY RF: 0 sucralfate 1 GM tablet 1 gm PO BID RF: 0 magnesium hydroxide 400 MG/5 ML suspension 15 ml PO DAILY PRN PRN (Reason: Constipation) RF: 0 turmeric (bulk) 5,000 GM powder 1 mg PO DAILY RF: 0 sour ro extract 1,000 MG capsule 1,000 mg PO DAILY RF: 0 furosemide 40 MG tablet 40 mg PO BID Qty: 0 RF: 0 amlodipine 2.5 mg tablet 2.5 mg PO DAILY Qty: 90 RF: 3 apixaban 2.5 mg tablet 2.5 mg PO BID Qty: 180 RF: 3 potassium chloride 20 mEq tablet,ER particles/crystals 20 meq PO BID Qty: 180 RF: 3 Referrals: Gladys Pickett MD [Primary Care Provider] - In 1 Day Fabi Finney PA [PHYSICIAN SPAR CAP BEVELER] - In 1 Week Disposition Patient Disposition: Home, self care
--- NOTE | 2020-08-25 14:49 | PCM.DC.SUM ---
Documented by User: Tila Aguilera NP, FOOD PRODUCTION WORKER-C 08/25/20 14:57 Providers Date of Admission: 08/22/20 Primary Care Physician: Dr. Daniela Reinoso MD Consultations 08/22/20 23:37 Physician Consult Routine Consulting Provider: Digna Castro Consulted Physician Type:: CARD -[facility] Reason for Consult: CHF exacerbation, resp failure Notified: Yes Date Notified:: 08/22/20 Time Notified: 23:17 Method of Notification:: cortext 08/23/20 09:13 Physician Consult Routine Consulting Provider: Digna Castro Consulted Physician Type:: CARD -[facility] Reason for Consult: CHF exa, pacemaker on 08/21 Method of Consult:: In-Person Comments:: readmission for CHF, VHD Notified: Yes Date Notified:: 08/23/20 Time Notified: 09:14 Method of Notification:: Verbal Reason For Visit: ACUTE RESPIRATORY FAILURE, CHF EXACERBATION Diagnosis Discharge Diagnosis (1) Acute congestive heart failure: Status: Acute Code(s): I50.9 - Heart failure, unspecified Qualifiers: Heart failure type: diastolic Qualified Code(s): I50.31 - Acute diastolic (congestive) heart failure (2) Atrial fibrillation with RVR: Status: Acute Code(s): I48.91 - Unspecified atrial fibrillation (3) Hx of atrioventricular node ablation: Status: Acute Code(s): Z98.890 - Other specified postprocedural states (4) S/P cardiac pacemaker procedure: Status: Acute Code(s): Z95.0 - Presence of cardiac pacemaker (5) Atherosclerotic heart disease of [place] coronary artery without angina pectoris: Status: Chronic Code(s): I25.10 - Atherosclerotic heart disease of [place] coronary artery without angina pectoris Qualifiers: [place] vs. transplanted heart: unspecified whether [place] or transplanted heart Qualified Code(s): I25.10 - Atherosclerotic heart disease of [place] coronary artery without angina pectoris (6) Presence of stent in coronary artery: Status: Chronic Code(s): Z95.5 - Presence of coronary angioplasty implant and graft (7) Pure hypercholesterolemia: Status: Chronic Code(s): E78.00 - Pure hypercholesterolemia, unspecified (8) Essential hypertension: Status: Chronic Code(s): I10 - Essential (primary) hypertension Medications at Discharge Home Medications atorvastatin 40 mg PO DAILY 08/19/19 clopidogrel 75 mg PO DAILY 08/19/19 gabapentin 600 mg PO BID 08/19/19 losartan 50 mg PO BID 08/19/19 pramipexole 0.25 mg PO BID PRN PRN 08/19/19 aspirin 81 mg PO DAILY@0800 tab 08/21/19 trazodone 50 mg tablet 50 mg PO QHS PRN 12/30/19 calcium carbonate-vitamin D3 1 tab PO DAILY 05/05/20 fexofenadine 60 mg PO DAILY 05/05/20 flaxseed oil 1,000 mg PO DAILY 05/05/20 lcofewij-cut-EE-lycopen-lutein 1 tab PO DAILY 05/05/20 nitroglycerin 0.4 mg SL X1 05/05/20 omega-3 fatty acids-fish oil 1 ea PO BID 05/05/20 pantoprazole 40 mg PO DAILY 05/05/20 sertraline 25 mg PO DAILY 05/05/20 vitamin B complex 1 tab PO DAILY 05/05/20 melatonin 10 mg PO PRN PRN 05/06/20 amlodipine 2.5 mg tablet 2.5 mg PO DAILY #90 tab 06/01/20 apixaban 2.5 mg tablet 2.5 mg PO BID #180 tab 07/01/20 potassium chloride 20 mEq tablet,extended release(part/cryst) 20 meq PO BID #180 tab 07/01/20 isosorbide mononitrate 60 mg tablet,extended release 24 hr 60 mg PO DAILY 07/08/20 famotidine 20 mg tablet 20 mg PO QHS PRN 08/07/20 levothyroxine 50 mcg tablet 50 mcg PO DAILY 08/07/20 hydrocodone-acetaminophen 1 tablet PO Q6H PRN PRN 08/17/20 sertraline 50 mg PO DAILY 08/17/20 magnesium hydroxide 15 ml PO DAILY PRN PRN 08/22/20 sour ro extract 1,000 mg PO DAILY 08/22/20 sucralfate 1 gm PO BID 08/22/20 turmeric (bulk) 1 mg PO DAILY 08/22/20 furosemide 40 mg PO BID #0 tab 08/25/20 Hospital Course Operations None Procedures 2-D Echocardiogram Summary of Care Provided Minutes Spent on Discharge: 35 Hospital Course: Patient is an 84-year-old female admitted 08/22/2020 due to dyspnea, hypoxia. 1. Acute on chronic hypoxic respiratory failure secondary to acute on chronic heart failure with preserved ejection fraction-chest x-ray consistent with congestion. BNP greater than 1000. Echocardiogram May 2020 demonstrated an EF of 65%, mild mitral valve insufficiency, mild to moderate tricuspid valve insufficiency, RVSP estimated to be 35 mmHg. Repeat echocardiogram demonstrates an EF of 60%, mild mitral valve insufficiency, mild to moderate tricuspid valve insufficiency, mild focal aortic valve calcification, RVSP estimated to be 58 mmHg. IV Lasix during admission. Increase home Lasix regimen to 40 mg twice daily. Follow-up with cardiology in 1 week, may consider reducing dose at that time pending further evaluation and repeat BMP. Patient recommended SNF however elects to return home to live with her daughter and home health/PT/OT. Follow-up with PCP in 1 week. Walking pulse ox completed prior to discharge and patient did not require further supplemental oxygen. 2. Indeterminate troponin-likely demand ischemia related to #1. Enzymes did not trend. Repeat echocardiogram as noted above. 3. Transaminitis-unclear etiology. Possibly congestion related #1. Recent gallbladder ultrasound 08/17/2020 with mild ascites, multiple gallstones, gallbladder thickening. CT of abdomen pelvis showed cholelithiasis. LFTs trending down. 4. Paroxysmal atrial fibrillation-recent AV node cardiac ablation and pacemaker placement at [facility]. Eliquis restarted 08/25/2020. Follow-up with [facility] cardiology as scheduled. 5. CAD with history of PCI-continue aspirin, Plavix, statin, losartan. 6. Chronic kidney disease stage IIIa-stable, trend BMP. 7. Hypothyroidism-continue Synthroid. 8. Hypertension-continue amlodipine, isosorbide, losartan. 9. Hyperlipidemia-continue statin. 10. ALVERTO-on BiPAP nightly. 11. Anxiety/depression-on sertraline, trazodone. 12. GERD-continue PPI, Carafate. 13. Tremors-patient reports this is chronic however recently worsened. Patient states she typically takes as needed Mirapex. Recommend outpatient follow-up with neurology. General: Alert, Oriented x3, Cooperative HEENT: Atraumatic, PERRLA, EOMI, Normocephalic Neck: Supple, No JVD, Negative Carotid Bruits Lungs: Clear to auscultation, Diminished Cardiovascular: - - Paced rhythm Abdomen: Bowel Sounds Present, Soft, Non Tender, Non-Distended Extremities: No clubbing, No cyanosis, No edema Skin: No rashes, No breakdown, - - Left chest ecchymosis from recent pacemaker placement Musculoskeletal: No Tenderness to Palpation of Joints or Extremities Neurological: Cranial nerves II-XII grossly intact, Neuro grossly intact Psych/Mental Status: Normal Affect, Appropriate Patient seen and examined prior to discharge. Physical assessment as noted above. Patient is stable for discharge with follow up recommendations as noted above. This patient was seen by BLANCO Duckworth under the supervision of Dr. Winter. ABG / Lab / Microbiology Data Result Diagrams: 08/23/20 04:20 08/25/20 06:45 Laboratory: Laboratory Results - last 24 hr 08/25/20 06:45 Sodium 137 Potassium 4.2 Chloride 100 Carbon Dioxide 31.0 Anion Gap 6 BUN 18 Creatinine 0.96 Estim Creat Clear Calc 36.73 Est GFR (MDRD) Af Amer 72 Est GFR (MDRD) Non-Af 59 L BUN/Creatinine Ratio 18.8 Glucose 113 H Calcium 8.7 Total Bilirubin 1.20 H AST 33 ALT 141 H Alkaline Phosphatase 133 H Total Protein 6.2 L Albumin 2.8 L Globulin 3.4 Albumin/Globulin Ratio 0.8 L Radiography Diagnostic Testing: Radiology Impression Echocardiogram 08/23/20 20:21 Interpretation Summary The study was technically difficult. Contrast injection was performed. Segmental dysfunction with preserved ejection fraction (see wall motion). The estimated ejection fraction is 60 %. Apical wall motion abnormality may reflect pacemaker activation. The left atrium is moderately enlarged. There is mild mitral annular calcification. Anterior leaflet diffuse mitral valve thickening. Moderate (2+) mitral valve insufficiency. Mild to moderate (1-2+) tricuspid valve insufficiency. Mild focal aortic valve calcification. Calcified aortic root. Echo lucency compatible with a pleural effusion. Right ventricular systolic pressure estimated to be 58 mmHg. Unable to assess diastolic dysfunction. ICD or pacer leads identified within the right atrium ICD or pacer leads identified within the right ventricle. Ordering Physician: Digna Castro Referring Physician: DANIELA REINOSO Performed By: Luanne Rosa, FABIANA, RVT D/C Instructions Discharge Diet: Low fat / Low cholesterol Discharge Activity: Return to Normal Activity Additional Activity Instructions: Follow post pacemaker placement instructions. Call your doctor if your incision/area has: Continuous Slow Oozing, Sudden Increased Bleeding, Increased Pain/ Swelling, Increased Redness, Foul Smelling Discharge and Swelling at the incision site Call your doctor if you observe: Fever of 101 or Higher, Shortness of breath and Chest pain Meaningful Use Info Meaningful Use Diagnoses (Choose all that apply): CHF CHF GLORIA/ARB ordered at discharge?: Yes Documented LVEF (%): 60 Discharge Plan Admission Admit Date/Time: 08/22/20 23:14 Attending Provider: Luis Carlos Winter Primary Care Provider: Daniela Reinoso Consulting Providers: Digna Castro Discharge Orders/Prescriptions Prescriptions: Continued trazodone 50 mg tablet 50 mg PO QHS PRN (Reason: Sleep) RF: 0 isosorbide mononitrate 60 mg tablet extended release 24 hr 60 mg PO DAILY RF: 0 levothyroxine 50 mcg tablet 50 mcg PO DAILY RF: 0 famotidine 20 mg tablet 20 mg PO QHS PRN (Reason: BACK) RF: 0 losartan 50 MG tablet 50 mg PO BID RF: 0 atorvastatin 40 MG tablet 40 mg PO DAILY RF: 0 clopidogrel 75 MG tablet 75 mg PO DAILY RF: 0 pramipexole 0.25 MG tablet 0.25 mg PO BID PRN PRN (Reason: SCIATICA) RF: 0 gabapentin 300 MG capsule 600 mg PO BID RF: 0 aspirin 81 MG tablet 81 mg PO DAILY@0800 RF: 0 fexofenadine 60 MG tablet 60 mg PO DAILY RF: 0 calcium carbonate-vitamin D3 1 EACH tablet 1 tab PO DAILY RF: 0 flaxseed oil 1,000 MG capsule 1,000 mg PO DAILY RF: 0 pantoprazole 40 MG tablet 40 mg PO DAILY RF: 0 nitroglycerin 0.4 MG tablet 0.4 mg SL X1 RF: 0 sertraline 25 MG tablet 25 mg PO DAILY RF: 0 vitamin B complex 1 EACH tablet 1 tab PO DAILY RF: 0 hliuopph-ytx-YG-lycopen-lutein 1 EACH tablet 1 tab PO DAILY RF: 0 omega-3 fatty acids-fish oil 1 EACH capsule 1 ea PO BID RF: 0 melatonin 10 MG tablet 10 mg PO PRN PRN (Reason: Sleep) RF: 0 hydrocodone-acetaminophen 1 EACH tablet 1 tablet PO Q6H PRN PRN (Reason: BACK) RF: 0 sertraline 50 MG tablet 50 mg PO DAILY RF: 0 sucralfate 1 GM tablet 1 gm PO BID RF: 0 magnesium hydroxide 400 MG/5 ML suspension 15 ml PO DAILY PRN PRN (Reason: Constipation) RF: 0 turmeric (bulk) 5,000 GM powder 1 mg PO DAILY RF: 0 sour ro extract 1,000 MG capsule 1,000 mg PO DAILY RF: 0 furosemide 40 MG tablet 40 mg PO BID Qty: 0 RF: 0 amlodipine 2.5 mg tablet 2.5 mg PO DAILY Qty: 90 RF: 3 apixaban 2.5 mg tablet 2.5 mg PO BID Qty: 180 RF: 3 potassium chloride 20 mEq tablet,ER particles/crystals 20 meq PO BID Qty: 180 RF: 3 Referrals: Daniela Reinoso MD [Primary Care Provider] - In 1 Day Fabi Finney PA [PHYSICIAN MANUFACTURING MACHINE OPERATOR] - In 1 Week Disposition Patient Disposition: Home, self care Documented by User: Dr. Luis Carlos Winter DO 08/25/20 16:10 Providers Date of Admission: 08/22/20 Reason For Visit: ACUTE RESPIRATORY FAILURE, CHF EXACERBATION Medications at Discharge Home Medications atorvastatin 40 mg PO DAILY 08/19/19 clopidogrel 75 mg PO DAILY 08/19/19 gabapentin 600 mg PO BID 08/19/19 losartan 50 mg PO BID 08/19/19 pramipexole 0.25 mg PO BID PRN PRN 08/19/19 aspirin 81 mg PO DAILY@0800 tab 08/21/19 trazodone 50 mg tablet 50 mg PO QHS PRN 12/30/19 calcium carbonate-vitamin D3 1 tab PO DAILY 05/05/20 fexofenadine 60 mg PO DAILY 05/05/20 flaxseed oil 1,000 mg PO DAILY 05/05/20 uhaouxye-eze-IH-lycopen-lutein 1 tab PO DAILY 05/05/20 nitroglycerin 0.4 mg SL X1 05/05/20 omega-3 fatty acids-fish oil 1 ea PO BID 05/05/20 pantoprazole 40 mg PO DAILY 05/05/20 sertraline 25 mg PO DAILY 05/05/20 vitamin B complex 1 tab PO DAILY 05/05/20 melatonin 10 mg PO PRN PRN 05/06/20 amlodipine 2.5 mg tablet 2.5 mg PO DAILY #90 tab 06/01/20 apixaban 2.5 mg tablet 2.5 mg PO BID #180 tab 07/01/20 potassium chloride 20 mEq tablet,extended release(part/cryst) 20 meq PO BID #180 tab 07/01/20 isosorbide mononitrate 60 mg tablet,extended release 24 hr 60 mg PO DAILY 07/08/20 famotidine 20 mg tablet 20 mg PO QHS PRN 08/07/20 levothyroxine 50 mcg tablet 50 mcg PO DAILY 08/07/20 hydrocodone-acetaminophen 1 tablet PO Q6H PRN PRN 08/17/20 sertraline 50 mg PO DAILY 08/17/20 magnesium hydroxide 15 ml PO DAILY PRN PRN 08/22/20 sour ro extract 1,000 mg PO DAILY 08/22/20 sucralfate 1 gm PO BID 08/22/20 turmeric (bulk) 1 mg PO DAILY 08/22/20 furosemide 40 mg PO BID #0 tab 08/25/20 Hospital Course Summary of Care Provided Minutes Spent on Discharge: 40 Hospital Course: Patient seen and examined independently. Data reviewed. I agree with the above note by the nurse practitioner. Presents with CHF and bump troponin. Physical Exam Narrative coarse BS bilatearlly Const alert ABG / Lab / Microbiology Data Result Diagrams: 08/23/20 04:20 08/25/20 06:45 Discharge Plan Admission Admit Date/Time: 08/22/20 23:14 Attending Provider: Luis Carlos Winter Primary Care Provider: Daniela Reinoso Consulting Providers: Digna Castro Discharge Orders/Prescriptions Prescriptions: Continued trazodone 50 mg tablet 50 mg PO QHS PRN (Reason: Sleep) RF: 0 isosorbide mononitrate 60 mg tablet extended release 24 hr 60 mg PO DAILY RF: 0 levothyroxine 50 mcg tablet 50 mcg PO DAILY RF: 0 famotidine 20 mg tablet 20 mg PO QHS PRN (Reason: BACK) RF: 0 losartan 50 MG tablet 50 mg PO BID RF: 0 atorvastatin 40 MG tablet 40 mg PO DAILY RF: 0 clopidogrel 75 MG tablet 75 mg PO DAILY RF: 0 pramipexole 0.25 MG tablet 0.25 mg PO BID PRN PRN (Reason: [place]AT[place]) RF: 0 gabapentin 300 MG capsule 600 mg PO BID RF: 0 aspirin 81 MG tablet 81 mg PO DAILY@0800 RF: 0 fexofenadine 60 MG tablet 60 mg PO DAILY RF: 0 calcium carbonate-vitamin D3 1 EACH tablet 1 tab PO DAILY RF: 0 flaxseed oil 1,000 MG capsule 1,000 mg PO DAILY RF: 0 pantoprazole 40 MG tablet 40 mg PO DAILY RF: 0 nitroglycerin 0.4 MG tablet 0.4 mg SL X1 RF: 0 sertraline 25 MG tablet 25 mg PO DAILY RF: 0 vitamin B complex 1 EACH tablet 1 tab PO DAILY RF: 0 pyiegkyf-jho-TY-lycopen-lutein 1 EACH tablet 1 tab PO DAILY RF: 0 omega-3 fatty acids-fish oil 1 EACH capsule 1 ea PO BID RF: 0 melatonin 10 MG tablet 10 mg PO PRN PRN (Reason: Sleep) RF: 0 hydrocodone-acetaminophen 1 EACH tablet 1 tablet PO Q6H PRN PRN (Reason: BACK) RF: 0 sertraline 50 MG tablet 50 mg PO DAILY RF: 0 sucralfate 1 GM tablet 1 gm PO BID RF: 0 magnesium hydroxide 400 MG/5 ML suspension 15 ml PO DAILY PRN PRN (Reason: Constipation) RF: 0 turmeric (bulk) 5,000 GM powder 1 mg PO DAILY RF: 0 sour ro extract 1,000 MG capsule 1,000 mg PO DAILY RF: 0 furosemide 40 MG tablet 40 mg PO BID Qty: 0 RF: 0 amlodipine 2.5 mg tablet 2.5 mg PO DAILY Qty: 90 RF: 3 apixaban 2.5 mg tablet 2.5 mg PO BID Qty: 180 RF: 3 potassium chloride 20 mEq tablet,ER particles/crystals 20 meq PO BID Qty: 180 RF: 3 Referrals: Daniela Reinoso MD [Primary Care Provider] - In 1 Day Fabi Finney PA [PHYSICIAN MANUFACTURING MACHINE OPERATOR] - In 1 Week Disposition Patient Disposition: Home, self care Inpatient E&M: 09377 Disch Hosp
--- NOTE | 2020-08-26 15:33 | CASEMGMT ---
RN MICHAEL Discharge Follow Up Phone Call: WANG: Carlota Strata: 4 Call Date: 08/26/20 Discharge Date: 08/25/20 Time of Call: 1528 Duration: 2 min Admitting Dx: acute respiratory failure, CHF RN MICHAEL completed follow up phone call after recent hospitalization. Spoke with pt dtr as pt was dc?d to her home. Dtr states they are in the ER currently. States nurse came out and she called and pt was directed to go to the ER. Jayda Kent from [facility] made CM aware that their nurse had called pt dtr and she stated pt pulse ox was in the 80?s at rest. This RN CM made tc to Muna intake at [facility] to see if they could qualify a pt for O2 as pt did not qualify at [facility]. She states they can and their nurse is to see pt in the next 10 minutes. Muna to update CM after visit.
== END 2020-08-25 16:23 | disposition home health service (06) | DRG 291 ==
LOC: ED 22:41 → PCU 23:25
PROVIDERS: Nurse Practitioner Family; Admitting Provider Family Medicine; Emergency Provider Emergency Medicine; PCP Internal Medicine
DX: I13.0 Hypertensive heart and chronic kidney disease with heart failure and stage 1 through stage 4 chronic kidney disease, or unspecified chronic kidney disease (principal); I50.33 Acute on chronic diastolic (congestive) heart failure; J96.21 Acute and chronic respiratory failure with hypoxia; I48.20 Chronic atrial fibrillation, unspecified; I24.8 Other forms of acute ischemic heart disease; N18.31 Chronic kidney disease, stage 3a; I48.0 Paroxysmal atrial fibrillation; R25.1 Tremor, unspecified; I25.10 Atherosclerotic heart disease of native coronary artery without angina pectoris; E78.5 Hyperlipidemia, unspecified; E03.9 Hypothyroidism, unspecified; G47.33 Obstructive sleep apnea (adult) (pediatric); G89.29 Other chronic pain; K21.9 Gastro-esophageal reflux disease without esophagitis; F32.9 Major depressive disorder, single episode, unspecified; F41.9 Anxiety disorder, unspecified; Z79.01 Long term (current) use of anticoagulants; Z79.02 Long term (current) use of antithrombotics/antiplatelets; Z79.82 Long term (current) use of aspirin; Z79.890 Hormone replacement therapy; Z79.899 Other long term (current) drug therapy; I25.2 Old myocardial infarction; Z95.0 Presence of cardiac pacemaker; Z95.5 Presence of coronary angioplasty implant and graft
CPT/HCPCS: 36415; 71045; 80048; 80053; 80076; 83735; 83880; 84484; 85025; 85610; 93005; 93306; 94002; 94003; 94640; 97110; 97162; 97166; 97530; 97535; 99285; Q9957; A4216; C8929; J1940

== ENCOUNTER 2020-08-26 15:24 | Inpatient (IN) | payer MEDICARE, SELFPAY ==
[2019-12-09 08:37] VITALS: BMI 24.3
[2020-08-22 23:43] VITALS: BMI 26.7
[2020-08-26] VITALS (10 sets, daily range): BP systolic 148–165; BP diastolic 65–93; PULSE 89–94; RESP 17–23; TEMP 36.5–37.3; O2SAT 87–95; BMI 27.3; BMI 25.4
--- NOTE | 2020-08-26 15:37 | EKG12_ITS ---
Test Reason : SOB Blood Pressure : / mmHG Vent. Rate : 090 BPM Atrial Rate : 108 BPM P-R Int : 000 ms QRS Dur : 162 ms QT Int : 436 ms P-R-T Axes : 000 -75 091 degrees QTc Int : 533 ms Ventricular-paced rhythm Abnormal ECG Confirmed by CRISTOFER SOTO, JUSTINA ([id number]), slot editor NEPTALI ORTIZ ([id number]) on 08/28/2020 10:04:31 AM Referred By: SIMEON Confirmed By:JUSTINA CLEVELAND MD
--- NOTE | 2020-08-26 16:13 | RAD_ITS ---
STUDY: X-RAY CHEST REASON FOR EXAM: Female, 84 years old. Worsening shortness of breath TECHNIQUE: Single AP portable view of the chest. COMPARISON: 08/22/2020 FINDINGS: EKG leads overlie the chest, stable appearance of a left subclavian pacemaker Lungs are expanded with worsening interstitial infiltrates particularly in the right lung base since the previous study. Small bilateral pleural effusions. Normal size heart. Normal mediastinum and yolanda. Normal visualized pulmonary arteries. There is atherosclerotic calcification of the aortic arch with tortuosity. There are diffuse degenerative changes of the visualized thoracic spine. Normal visualized ribs, clavicles, and shoulders. There is no demonstrated abnormality of the visualized soft tissue structures of the upper abdomen. RAD/Chest 1 View (Portable) IMPRESSION: Worsening interstitial opacifications in both lung graves since the previous study, particularly in the right lower lobe. Enlarging bilateral pleural effusions Follow-up recommended to assure resolution Electronically Signed: Tony Sheffield MD at 16:34 EDT , Service support ,
[2020-08-26 16:26] LABS: Blood Gas Specimen Type VEN; O2 Delivery Device Cannula; VBG BASE EXCESS 5 mmol/L (-1.0-3.5); VBG Bicarbonate 28 mmol/L (22-26); VBG PO2 57 mmHg (25-40); VBG SO2 91 % (50-70); VBG TCO2 30 mmol/L (23-33); VBG pCO2 37.4 mmHg (41-51); VBG pH 7.49 (7.32-7.42)
--- NOTE | 2020-08-26 16:26 | ED.VIS.DYS ---
HPI History of Present Illness Chief Complaint: Shortness of Breath Informant: patient and family Onset/Context/Timing Onset: Days Context: gradual Timing: Continuous Quality: Positive for Dyspnea on exertion and Orthopnea; Negative for PND and Wheezing Current Severity: Mild Maximum Severity: Severe Worsened by: Exertion and Lying flat Relieved by: Nothing Associated Symptoms cough Chest Pain: Positive for None Narrative Narrative: Patient is an elderly woman who was recently admitted to [facility] for placement of pacemaker and AICD. She was discharged from [facility] against family's wishes. She was then admitted to [facility]. She was discharged from [facility] yesterday. She was sent in by visiting nurse. I was informed that her pulse ox was 87% on room air upon arrival. She is not on oxygen at home. Patient denies fever, chills or night sweats. She denies rhinorrhea, postnasal drainage or congestion. Denies loss of taste or smell. Most recent Covid test was negative. She states she had a slight cough and had brown-colored sputum. She also reports epistaxis. She does report swelling of her legs and feet. She has had very little urine output in spite of taking 80 mg of Lasix today. She is on Coumadin for paroxysmal H fibrillation. PE Risk Factors: Positive for Recent immobilization and Recent surgery; Negative for Cancer, OCP + Smoking + > 35, Prior DVT or PE and Recent travel Prior similar symptoms: Yes Recent Illness/Hospitalization: Yes [facility] Medical History Atherosclerotic heart disease of [place] coronary artery without angina pectoris Atrial fibrillation Atrial fibrillation status post cardioversion CAD (coronary artery disease) Congestive heart failure (CHF) Edema Essential hypertension GERD (gastroesophageal reflux disease) Hearing loss, left Hearing loss, right History of cardioversion (~07/09/20) HTN (hypertension) Hyperlipidemia Hyperthyroidism Hypokalemia [facility] current use of anticoagulant Myocardial infarct NSTEMI (non-ST elevated myocardial infarction) On home oxygen therapy ALVERTO on CPAP Pacemaker Presence of stent in coronary artery (~08/20/19) Pure hypercholesterolemia Shortness of breath Sleep apnea Weakness Home Medications atorvastatin 40 mg PO DAILY 08/19/19 [History Last Taken 08/25/20] clopidogrel 75 mg PO DAILY 08/19/19 [History Last Taken 08/26/20] gabapentin 600 mg PO BID 08/19/19 [History Last Taken 08/26/20] losartan 50 mg PO BID 08/19/19 [History Last Taken 08/26/20] pramipexole 0.25 mg PO BID PRN PRN 08/19/19 [History Last Taken 08/26/20] aspirin 81 mg PO DAILY@0800 tab 08/21/19 [Rx Last Taken 08/26/20] trazodone 50 mg tablet 50 mg PO QHS PRN 12/30/19 [History Last Taken 08/25/20] calcium carbonate-vitamin D3 1 tab PO DAILY 05/05/20 [History Last Taken 08/26/20] fexofenadine 60 mg PO DAILY 05/05/20 [History Last Taken 08/26/20] flaxseed oil 1,000 mg PO DAILY 05/05/20 [History Last Taken 08/17/20] ioaklnpe-yhp-FH-lycopen-lutein 1 tab PO DAILY 05/05/20 [History Last Taken 08/26/20] nitroglycerin 0.4 mg SL Q5M 05/05/20 [History Last Taken Unknown] omega-3 fatty acids-fish oil 1 ea PO BID 05/05/20 [History Last Taken 08/26/20] pantoprazole 40 mg PO DAILY 05/05/20 [History Last Taken 08/26/20] sertraline 25 mg PO DAILY 05/05/20 [History Last Taken 08/26/20] vitamin B complex 1 tab PO DAILY 05/05/20 [History Last Taken 08/26/20] melatonin 10 mg PO PRN PRN 05/06/20 [History Last Taken 08/25/20] amlodipine 2.5 mg tablet 2.5 mg PO DAILY #90 tab 06/01/20 [Rx Last Taken 08/26/20] apixaban 2.5 mg tablet 2.5 mg PO BID #180 tab 07/01/20 [Rx Last Taken 08/26/20] potassium chloride 20 mEq tablet,extended release(part/cryst) 20 meq PO BID #180 tab 07/01/20 [Rx Last Taken 08/26/20] isosorbide mononitrate 60 mg tablet,extended release 24 hr 60 mg PO DAILY 07/08/20 [History Last Taken 08/26/20] famotidine 20 mg tablet 20 mg PO BID 08/07/20 [History Last Taken 08/26/20] levothyroxine 50 mcg tablet 50 mcg PO DAILY 08/07/20 [History Last Taken 08/26/20] hydrocodone-acetaminophen 1 tablet PO Q6H PRN PRN 08/17/20 [History Last Taken 08/26/20] sertraline 50 mg PO DAILY 08/17/20 [History Last Taken 08/26/20] sucralfate 1 gm PO BID 08/22/20 [History Last Taken 08/26/20] furosemide 40 mg PO BID 08/26/20 [History Last Taken 08/26/20] magnesium oxide 400 mg PO DAILY 08/26/20 [History Last Taken 08/26/20] turmeric root extract 500 mg PO DAILY 08/26/20 [History Last Taken 08/26/20] Allergy/AdvReac Type Severity Reaction Status Date / Time enalaprilat [From Vasotec] Allergy Other Verified 08/22/20 21:45 ezetimibe [From Zetia] AdvReac Upset Verified 08/26/20 15:29 Stomach meperidine [From Demerol] AdvReac Nausea Verified 08/22/20 21:45 mirtazapine [From Remeron] AdvReac Other Verified 08/22/20 21:45 zolpidem [From Ambien] AdvReac Other Verified 08/22/20 21:45 Family History Father Heart disease Brother Diabetes Mother COPD (chronic obstructive pulmonary disease) Grandfather Heart disease Surgical History History of appendectomy History of carpal tunnel surgery History of left breast biopsy History of total hysterectomy Hx of atrioventricular node ablation Presence of coronary angioplasty implant and graft (~08/20/19) S/P PTCA (percutaneous transluminal coronary angioplasty) Social History Smoking Status: Never smoker alcohol intake: never substance use type: does not use caffeine: Yes Type: coffee Number of servings: 1 ROS ROS ED Review of Systems ROS Unobtainable: due to mental status Constitutional Constitutional ED: Denies chills, fever(s), sweats or weight loss Eyes Eyes: Denies blurry vision or change in vision ENT ENT ED: Denies ear pain, rhinorrhea or sore throat Cardiovascular Cardiovascular: Reports orthopnea; Denies chest pain, palpitations, paroxysmal nocturnal dyspnea or racing heartbeat Respiratory/Chest Respiratory/Chest: Reports cough, dyspnea, dyspnea on exertion, orthopnea and sputum; Denies paroxysmal nocturnal dyspnea Gastrointestinal Gastrointestinal: Denies abdominal pain, diarrhea, nausea or vomiting Genitourinary Genitourinary ED: Denies dysuria, hematuria or urinary frequency Musculoskeletal Musculoskeletal: Denies arthralgias, myalgias or neck pain Integumentary Denies rash Neurologic Neurologic: Denies headache(s), paresthesias or weakness Psychiatric Psychiatric: Denies anxiety or depression Endocrine Endocrinology: Denies polydipsia or polyuria Hematologic/Lymphatic Hematologic/Lymphatic: Denies easy bleeding or easy bruising Allergic/Immunologic Allergic/Immunologic ED: Denies mouth swelling or tongue swelling EXAM Physical Exam Const Vital Signs: 08/26/20 15:29 08/26/20 15:35 08/26/20 15:42 Temperature 97.7 F L Temperature Source Oral Pulse Rate 91 Respiratory Rate 20 H Respiratory Effort Short of Breath Blood Pressure 148/90 H Blood Pressure Mean 109 Pulse Ox 87 92 92 Oxygen Delivery Method Room Air Nasal Cannula Nasal Cannula Oxygen Flow Rate (L/min) 2 2 08/26/20 19:03 08/26/20 19:59 Temperature 98.2 F Temperature Source Oral Pulse Rate 92 94 Respiratory Rate 23 H 17 Respiratory Effort Blood Pressure 165/88 H 155/93 H Blood Pressure Mean 113 113 Pulse Ox 91 93 Oxygen Delivery Method Nasal Cannula Nasal Cannula Oxygen Flow Rate (L/min) 2 4 Positive well nourished, well developed and obese General Appearance ED: well developed, pallor and other Depressed level of consciousness. Nutritional Appearance: obese HEENT Reports TM's clear and dry mucous membranes atraumatic Tympanic Membrane ED: Yes TM's clear Mouth ED: Yes dry mucous membranes Mouth: dry mucous membranes Eyes PERRL and EOMs intact bilaterally General Eye ED: Negative for pale conjunctiva or scleral icterus Neck no lymphadenopathy, supple, no meningeal signs and no JVD Resp No normal respiratory effort and No clear to auscultation bilaterally Effort and Inspection: Negative for pain with movement Auscultation: rales right, left and diffuse and diminished lung sounds Cardio regular rate, regular rhythm, S1 normal heart sound, S2 normal heart sound and no murmurs Rate: other Other Details: Occasional ectopic beat GI non-tender, non-distended and no masses Auscultation: normoactive bowel sounds Back/Spine no CVA tenderness and normal to inspection Extremity Negative for normal to inspection General Extremety ED: Yes edema; Negative for tenderness General Extremity: edema Neuro oriented x3 and no sensory deficits noted Sensorium / Orientation: Negative for alert Motor Exam: strength 5/5 throughout Psych Thought Process: normal thought process Skin no wounds General Skin Exam: pallor; Negative for jaundice Lesions: no lesions Rashes: no rashes MDM MDM MDM Narrative Medical decision making narrative: With bilateral rales hypoxia concern patient has exacerbation of congestive heart failure. Most recent echo revealed an ejection fraction of 55%. Chest x-ray was obtained to evaluate patient's hypoxia and bilateral rales. EKG to rule out acute ischemia as well as troponin. Patient does appear pale will obtain CBC to assess white count and H&H. Since she reports no urine output electrolyte panel was obtained to assess renal function. She was treated with IV Lasix and p.o. Zaroxolyn. Patient will be treated for hospital-acquired pneumonia. Will initiate therapy. She does not have severe sepsis. Patient also has component of congestive heart failure. Hospitalist has been paged for admission. Lab Data Attestation: I reviewed the patient's lab results. Labs: Laboratory Results - last 24 hr 08/26/20 08/26/20 08/26/20 16:00 16:00 16:00 WBC 9.9 RBC 4.67 Hgb 13.7 Hct 44.0 MCV 94.2 MCH 29.3 MCHC 31.1 L RDW Std Deviation 58.7 H RDW Coeff of Brian 17.1 H Plt Count 189 MPV 9.4 Immature Gran % (Auto) 0.500 Neut % (Auto) 80.2 H Lymph % (Auto) 14.1 L [place] % (Auto) 4.1 Eos % (Auto) 1.0 Baso % (Auto) 0.1 Absolute Neuts (auto) 8.0 H Absolute Lymphs (auto) 1.40 Nucleated RBC % 0 PT 15.6 H INR 1.3 Sodium 131 L Potassium 3.4 L Chloride 95 L Carbon Dioxide 30.0 Anion Gap 6 BUN 16 Creatinine 0.87 Estim Creat Clear Calc 40.53 Est GFR (MDRD) Af Amer 80 Est GFR (MDRD) Non-Af 66 BUN/Creatinine Ratio 18.5 Glucose 129 H Lactic Acid Calcium 8.9 Magnesium Troponin I < 0.015 B-Natriuretic Peptide Procalcitonin 08/26/20 08/26/20 08/26/20 16:00 16:00 16:00 WBC RBC Hgb Hct MCV MCH MCHC RDW Std Deviation RDW Coeff of Brian Plt Count MPV Immature Gran % (Auto) Neut % (Auto) Lymph % (Auto) [place] % (Auto) Eos % (Auto) Baso % (Auto) Absolute Neuts (auto) Absolute Lymphs (auto) Nucleated RBC % PT INR Sodium Potassium Chloride Carbon Dioxide Anion Gap BUN Creatinine Estim Creat Clear Calc Est GFR (MDRD) Af Amer Est GFR (MDRD) Non-Af BUN/Creatinine Ratio Glucose Lactic Acid Calcium Magnesium 1.7 Troponin I B-Natriuretic Peptide 684.4 H Procalcitonin 0.17 H 08/26/20 17:21 WBC RBC Hgb Hct MCV MCH MCHC RDW Std Deviation RDW Coeff of Brian Plt Count MPV Immature Gran % (Auto) Neut % (Auto) Lymph % (Auto) [place] % (Auto) Eos % (Auto) Baso % (Auto) Absolute Neuts (auto) Absolute Lymphs (auto) Nucleated RBC % PT INR Sodium Potassium Chloride Carbon Dioxide Anion Gap BUN Creatinine Estim Creat Clear Calc Est GFR (MDRD) Af Amer Est GFR (MDRD) Non-Af BUN/Creatinine Ratio Glucose Lactic Acid 1.2 Calcium Magnesium Troponin I B-Natriuretic Peptide Procalcitonin ABG Data ABG results: ABG 08/26/20 16:20 Specimen Type EMMA VBG pH 7.49 H VBG pO2 57 H VBG HCO3 28 H VBG Total CO2 30 VBG O2 Sat (Calc) 91 H VBG Base Excess 5 H POC Mix VBG pCO2 Pt Tmp 37.4 L O2 Delivery Device Cannula Liter Flow 2.0 Radiography Chest X-Ray - ED: 1 View, Read by ED Physician, Heart, Bony Structures, Right Infiltrate, Right Effusion, Left Effusion and - (Compared to prior x-ray performed on August 22 there is an infiltrate in the right lower lung field. Patient also has effusion which has increased in size since August 22. Patient is presently on 6 3 L of oxygen with a 90% saturation.) Diagnostic Testing: Radiology Impression Chest X-Ray 08/26/20 16:13 IMPRESSION: Worsening interstitial opacifications in both lung graves since the previous study, particularly in the right lower lobe. Enlarging bilateral pleural effusions Follow-up recommended to assure resolution Electronically Signed: Tony Sheffield MD at 16:34 EDT , Service support , EKG Initial EKG: Interpretation: Paced (Ventricular paced rhythm with a rate of 90. Cures duration 162 ms. QT duration 436 ms.) Discharge Plan Dx/Rx/DC Orders Clinical Impression: HABP (hospital-acquired bacterial pneumonia), Acute respiratory failure with hypoxia, Congestive heart failure of unknown etiology Disposition Disposition: Acute Care Hospital [facility] Discharge Date/Time: 08/26/20 20:21
[2020-08-26 16:39] LABS: Basophil# 0.01 X10^3/uL; Basophil% 0.1 % (0-1); Hemoglobin 13.7 g/dL (12.0-15.0); Lymphocyte % 14.1 % (19-41); Mean Corp Hgb Conc 31.1 g/dL (32-36); Mean Corpuscular Hgb 29.3 pg (27.0-32.0); Mean Corpuscular Volume 94.2 fL (81-99); Mean Platelet Vol. 9.4 fl (6.2-12.0); Monocyte# 0.41 X10^3/uL; Monocyte% 4.1 % (0-10); NRBC Flagged by Analyzer 0 % (0-5); Neutrophil # 7.97 X10^3/uL (2.7-7.7); Neutrophil % 80.2 % (47-70); Platelet Count 189 K/mm3 (150-450); RBC Distribution Width CV 17.1 % (11.6-14.6); RBC Distribution Width SD 58.7 fl (35.1-43.9); Red Blood Count 4.67 M/mm3 (4.2-5.4); White Blood Count 9.9 K/mm3 (4.4-11.0)
[2020-08-26 16:42] LABS: BNP,B-Type NATRIURETIC PEPTIDE 684.4 pg/mL (0-100)
[2020-08-26 16:49] LABS: Anion Gap 6 (5-15); BUN 16 mg/dL (7-18); BUN/Creat Ratio 18.5 RATIO (10-20); Calcium,Total 8.9 mg/dL (8.5-10.1); Chloride 95 mmol/L (98-107); Creatinine, Serum 0.87 mg/dL (0.55-1.02); EST Glomerular Filtration Rate 66 mL/min (>60); Est Glom Filt Rate - Afr Amer 80 mL/min (>60); Estimated Creatinine Clearance 40.53 ml/min; Glucose 129 mg/dL (74-106); Potassium 3.4 mmol/L (3.5-5.1); Sodium Level 131 mmol/L (136-145)
[2020-08-26 17:02] LABS: International Normalized Ratio 1.3; Prothrombin Time (Protime)PT. 15.6 SECONDS (11.7-14.9)
[2020-08-26] MEDS: Metolazone 2.5 MG Tablet PO (17:09)
[2020-08-26] MEDS: Furosemide 40 MG/4 ML Vial IV ×2 (17:09→22:47)
[2020-08-26 18:00] LABS: Lactic Acid 1.2 mmol/L (0.4-1.9)
--- NOTE | 2020-08-26 19:53 | PCM.HP.STD ---
Documented by User: BLANCO Hou 08/26/20 20:19 HPI - General General Date of Admission: 08/26/20 HPI Narrative CAMILO SRIVASTAVA, is a 84 F who presents with complaints of shortness of breath and cough. Patient has been admitted multiple times during the last month for CHF exacerbation. Patient reports that she has been short of breath for weeks with intermittent improvement. Patient also reports she has a cough with lori brown sputum and complains of epistaxis. Upon arrival to ER patient was 85% on room air, currently on 3 L 92%. Chest x-ray obtained in ER shows bilateral pleural effusions. [facility]LY [facility] Medical History Atherosclerotic heart disease of [place] coronary artery without angina pectoris Atrial fibrillation Atrial fibrillation status post cardioversion CAD (coronary artery disease) Congestive heart failure (CHF) Edema Essential hypertension GERD (gastroesophageal reflux disease) Hearing loss, left Hearing loss, right History of cardioversion (~07/09/20) HTN (hypertension) Hyperlipidemia Hyperthyroidism Hypokalemia senior care current use of anticoagulant Myocardial infarct NSTEMI (non-ST elevated myocardial infarction) On home oxygen therapy ALVERTO on CPAP Pacemaker Presence of stent in coronary artery (~08/20/19) Pure hypercholesterolemia Shortness of breath Sleep apnea Weakness Home Medications atorvastatin 40 mg PO DAILY 08/19/19 [History Last Taken 08/25/20] clopidogrel 75 mg PO DAILY 08/19/19 [History Last Taken 08/26/20] gabapentin 600 mg PO BID 08/19/19 [History Last Taken 08/26/20] losartan 50 mg PO BID 08/19/19 [History Last Taken 08/26/20] pramipexole 0.25 mg PO BID PRN PRN 08/19/19 [History Last Taken 08/26/20] aspirin 81 mg PO DAILY@0800 tab 08/21/19 [Rx Last Taken 08/26/20] trazodone 50 mg tablet 50 mg PO QHS PRN 12/30/19 [History Last Taken 08/25/20] calcium carbonate-vitamin D3 1 tab PO DAILY 05/05/20 [History Last Taken 08/26/20] fexofenadine 60 mg PO DAILY 05/05/20 [History Last Taken 08/26/20] flaxseed oil 1,000 mg PO DAILY 05/05/20 [History Last Taken 08/17/20] rhcoaphq-odg-GE-lycopen-lutein 1 tab PO DAILY 05/05/20 [History Last Taken 08/26/20] nitroglycerin 0.4 mg SL Q5M 05/05/20 [History Last Taken Unknown] omega-3 fatty acids-fish oil 1 ea PO BID 05/05/20 [History Last Taken 08/26/20] pantoprazole 40 mg PO DAILY 05/05/20 [History Last Taken 08/26/20] sertraline 25 mg PO DAILY 05/05/20 [History Last Taken 08/26/20] vitamin B complex 1 tab PO DAILY 05/05/20 [History Last Taken 08/26/20] melatonin 10 mg PO PRN PRN 05/06/20 [History Last Taken 08/25/20] amlodipine 2.5 mg tablet 2.5 mg PO DAILY #90 tab 06/01/20 [Rx Last Taken 08/26/20] apixaban 2.5 mg tablet 2.5 mg PO BID #180 tab 07/01/20 [Rx Last Taken 08/26/20] potassium chloride 20 mEq tablet,extended release(part/cryst) 20 meq PO BID #180 tab 07/01/20 [Rx Last Taken 08/26/20] isosorbide mononitrate 60 mg tablet,extended release 24 hr 60 mg PO DAILY 07/08/20 [History Last Taken 08/26/20] famotidine 20 mg tablet 20 mg PO BID 08/07/20 [History Last Taken 08/26/20] levothyroxine 50 mcg tablet 50 mcg PO DAILY 08/07/20 [History Last Taken 08/26/20] hydrocodone-acetaminophen 1 tablet PO Q6H PRN PRN 08/17/20 [History Last Taken 08/26/20] sertraline 50 mg PO DAILY 08/17/20 [History Last Taken 08/26/20] sucralfate 1 gm PO BID 08/22/20 [History Last Taken 08/26/20] furosemide 40 mg PO BID 08/26/20 [History Last Taken 08/26/20] magnesium oxide 400 mg PO DAILY 08/26/20 [History Last Taken 08/26/20] turmeric root extract 500 mg PO DAILY 08/26/20 [History Last Taken 08/26/20] Allergy/AdvReac Type Severity Reaction Status Date / Time enalaprilat [From Vasotec] Allergy Other Verified 08/22/20 21:45 ezetimibe [From Zetia] AdvReac Upset Verified 08/26/20 15:29 Stomach meperidine [From Demerol] AdvReac Nausea Verified 08/22/20 21:45 mirtazapine [From Remeron] AdvReac Other Verified 08/22/20 21:45 zolpidem [From Ambien] AdvReac Other Verified 08/22/20 21:45 Family History Father Heart disease Brother Diabetes Mother COPD (chronic obstructive pulmonary disease) Grandfather Heart disease Surgical History History of appendectomy History of carpal tunnel surgery History of left breast biopsy History of total hysterectomy Hx of atrioventricular node ablation Presence of coronary angioplasty implant and graft (~08/20/19) S/P PTCA (percutaneous transluminal coronary angioplasty) Social History Smoking Status: Never smoker alcohol intake: never substance use type: does not use caffeine: Yes Type: coffee Number of servings: 1 ROS Constitutional Constitutional: Reports fatigue and weakness; Denies anorexia or chills Cardiovascular Cardiovascular: Reports edema and orthopnea; Denies chest pain Respiratory/Chest Respiratory/Chest: Reports cough, shortness of breath at rest and shortness of breath with exertion Gastrointestinal Gastrointestinal: Denies abdominal pain, constipation, hematemesis or nausea Genitourinary Genitourinary: Denies dysuria or hematuria Musculoskeletal Musculoskeletal: Denies back pain or extremity pain Integumentary Integumentary: Denies dry skin or wounds Neurologic Neurologic: Denies abnormal gait or abnormal speech Psychiatric Psychiatric: Reports anxiety; Denies depression Endocrine Endocrinology: Denies change in body appearance Hematologic/Lymphatic Hematologic/Lymphatic: Denies anemia Vital Signs Vital Signs Vital Signs: 08/26/20 15:29 08/26/20 15:35 08/26/20 15:42 Temperature 97.7 F L Temperature Source Oral Pulse Rate 91 Respiratory Rate 20 H Respiratory Effort Short of Breath Blood Pressure 148/90 H Blood Pressure Mean 109 Pulse Ox 87 92 92 Oxygen Delivery Method Room Air Nasal Cannula Nasal Cannula Oxygen Flow Rate (L/min) 2 2 08/26/20 19:03 Temperature Temperature Source Pulse Rate 92 Respiratory Rate 23 H Respiratory Effort Blood Pressure 165/88 H Blood Pressure Mean 113 Pulse Ox 91 Oxygen Delivery Method Nasal Cannula Oxygen Flow Rate (L/min) 2 Physical Exam Const alert General Appearance: cooperative Orientation / Consciousness: oriented to person and oriented to place HEENT normocephalic and head/scalp atraumatic Eyes PERRL and EOMs intact bilaterally Neck supple and no JVD Lymph Lymphatic: no lymphadenopathy noted Resp Effort and Inspection: tachypneic and labored Auscultation: rales bilateral and diffuse Cardio regular rate, regular rhythm, S1 normal heart sound, S2 normal heart sound and no murmurs GI normal to inspection, nondistended, normoactive bowel sounds, soft to palpation and non-tender Extremity General Extremity: edema bilateral lower extremity (1+) Skin General Skin Exam: no breakdown and turgor normal Lesions: no lesions Rashes: no rashes Neuro CN's II-XII intact bilaterally Psych Psych Narrative: Appearance: appropriate Mood & Affect: anxious Lab / Micro Data Result Diagrams: 08/26/20 16:00 08/26/20 16:00 Labs: Laboratory Results - last 24 hr 08/26/20 08/26/20 08/26/20 16:00 16:00 16:00 WBC 9.9 RBC 4.67 Hgb 13.7 Hct 44.0 MCV 94.2 MCH 29.3 MCHC 31.1 L RDW Std Deviation 58.7 H RDW Coeff of Brian 17.1 H Plt Count 189 MPV 9.4 Immature Gran % (Auto) 0.500 Neut % (Auto) 80.2 H Lymph % (Auto) 14.1 L [place] % (Auto) 4.1 Eos % (Auto) 1.0 Baso % (Auto) 0.1 Absolute Neuts (auto) 8.0 H Absolute Lymphs (auto) 1.40 Nucleated RBC % 0 PT 15.6 H INR 1.3 Sodium 131 L Potassium 3.4 L Chloride 95 L Carbon Dioxide 30.0 Anion Gap 6 BUN 16 Creatinine 0.87 Estim Creat Clear Calc 40.53 Est GFR (MDRD) Af Amer 80 Est GFR (MDRD) Non-Af 66 BUN/Creatinine Ratio 18.5 Glucose 129 H Lactic Acid Calcium 8.9 Troponin I < 0.015 B-Natriuretic Peptide 08/26/20 08/26/20 16:00 17:21 WBC RBC Hgb Hct MCV MCH MCHC RDW Std Deviation RDW Coeff of Brian Plt Count MPV Immature Gran % (Auto) Neut % (Auto) Lymph % (Auto) [place] % (Auto) Eos % (Auto) Baso % (Auto) Absolute Neuts (auto) Absolute Lymphs (auto) Nucleated RBC % PT INR Sodium Potassium Chloride Carbon Dioxide Anion Gap BUN Creatinine Estim Creat Clear Calc Est GFR (MDRD) Af Amer Est GFR (MDRD) Non-Af BUN/Creatinine Ratio Glucose Lactic Acid 1.2 Calcium Troponin I B-Natriuretic Peptide 684.4 H ABG Data ABG results: ABG 08/26/20 16:20 Specimen Type EMMA VBG pH 7.49 H VBG pO2 57 H VBG HCO3 28 H VBG Total CO2 30 VBG O2 Sat (Calc) 91 H VBG Base Excess 5 H POC Mix VBG pCO2 Pt Tmp 37.4 L O2 Delivery Device Cannula Liter Flow 2.0 Radiology Impression Chest X-Ray 08/26/20 16:13 IMPRESSION: Worsening interstitial opacifications in both lung graves since the previous study, particularly in the right lower lobe. Enlarging bilateral pleural effusions Follow-up recommended to assure resolution Electronically Signed: Tony Sheffield MD at 16:34 EDT , Service support , Assessment & Plan Assessment/Plan (1) HABP (hospital-acquired bacterial pneumonia): Status: Acute Code(s): J15.9 - Unspecified bacterial pneumonia (2) Acute congestive heart failure: Status: Acute Code(s): I50.9 - Heart failure, unspecified Qualifiers: Heart failure type: diastolic Qualified Code(s): I50.31 - Acute diastolic (congestive) heart failure (3) Acute respiratory insufficiency: Status: Acute Code(s): R06.89 - Other abnormalities of breathing (4) Hypokalemia due to excessive renal loss of potassium: Status: Acute Code(s): E87.6 - Hypokalemia (5) S/P cardiac pacemaker procedure: Status: Acute Code(s): Z95.0 - Presence of cardiac pacemaker (6) Presence of stent in coronary artery: Status: Chronic Code(s): Z95.5 - Presence of coronary angioplasty implant and graft Plan: 1. Hospital-acquired bacterial pneumonia -Admit to PCU for cardiac monitoring -Zosyn and Vancomycin given in ER, ceftriaxone and azithromycin ordered due to suspected healthcare acquired -CBC daily -MRSA PCR ordered -As needed albuterol aerosols ordered -Encourage incentive spirometry -Will check procalcitonin -PT OT to eval and treat 2. Acute congestive heart failure -CMP daily -strict I and O -Daily weights -LACI wraps to bilateral lower extremities -Urinary catheter placed in ER -Lasix 40 mg IV every 8 hours -Elevate extremities 3. Acute respiratory insufficiency -O2 per protocol -encourage incentive spirometry 4. Hypokalemia -Secondary to chronic use of diuretics -Potassium chloride 60 mEq p.o. x1 now -Increase twice daily potassium chloride to 40 mEq -CMP daily -Will check magnesium and phosphorus 5. Status post cardiac pacemaker procedure -Placed at [facility] 08/21/2020 6. Presence of stent in coronary artery -Placed 08/18/2020 We will continue home medications for management of chronic diseases, with the exception of twice daily Eliquis due to patient complaint of epistaxis and lori brown sputum production. DVT prophylaxis-SCDs, will hold pharmacological intervention at this time due to epistaxis. This patient was seen by BLANCO Hou under the supervision of Dr. Caceres. Documented by User: Dr. Lopez Caceres MD 08/26/20 20:28 [facility] - General General Date of Admission: 08/26/20 [facility] Medical History Atherosclerotic heart disease of [place] coronary artery without angina pectoris Atrial fibrillation Atrial fibrillation status post cardioversion CAD (coronary artery disease) Congestive heart failure (CHF) Edema Essential hypertension GERD (gastroesophageal reflux disease) Hearing loss, left Hearing loss, right History of cardioversion (~07/09/20) HTN (hypertension) Hyperlipidemia Hyperthyroidism Hypokalemia mandolin repairer current use of anticoagulant Myocardial infarct NSTEMI (non-ST elevated myocardial infarction) On home oxygen therapy ALVERTO on CPAP Pacemaker Presence of stent in coronary artery (~08/20/19) Pure hypercholesterolemia Shortness of breath Sleep apnea Weakness Home Medications atorvastatin 40 mg PO DAILY 08/19/19 [History Last Taken 08/25/20] clopidogrel 75 mg PO DAILY 08/19/19 [History Last Taken 08/26/20] gabapentin 600 mg PO BID 08/19/19 [History Last Taken 08/26/20] losartan 50 mg PO BID 08/19/19 [History Last Taken 08/26/20] pramipexole 0.25 mg PO BID PRN PRN 08/19/19 [History Last Taken 08/26/20] aspirin 81 mg PO DAILY@0800 tab 08/21/19 [Rx Last Taken 08/26/20] trazodone 50 mg tablet 50 mg PO QHS PRN 12/30/19 [History Last Taken 08/25/20] calcium carbonate-vitamin D3 1 tab PO DAILY 05/05/20 [History Last Taken 08/26/20] fexofenadine 60 mg PO DAILY 05/05/20 [History Last Taken 08/26/20] flaxseed oil 1,000 mg PO DAILY 05/05/20 [History Last Taken 08/17/20] fvddhzfj-lij-BY-lycopen-lutein 1 tab PO DAILY 05/05/20 [History Last Taken 08/26/20] nitroglycerin 0.4 mg SL Q5M 05/05/20 [History Last Taken Unknown] omega-3 fatty acids-fish oil 1 ea PO BID 05/05/20 [History Last Taken 08/26/20] pantoprazole 40 mg PO DAILY 05/05/20 [History Last Taken 08/26/20] sertraline 25 mg PO DAILY 05/05/20 [History Last Taken 08/26/20] vitamin B complex 1 tab PO DAILY 05/05/20 [History Last Taken 08/26/20] melatonin 10 mg PO PRN PRN 05/06/20 [History Last Taken 08/25/20] amlodipine 2.5 mg tablet 2.5 mg PO DAILY #90 tab 06/01/20 [Rx Last Taken 08/26/20] apixaban 2.5 mg tablet 2.5 mg PO BID #180 tab 07/01/20 [Rx Last Taken 08/26/20] potassium chloride 20 mEq tablet,extended release(part/cryst) 20 meq PO BID #180 tab 07/01/20 [Rx Last Taken 08/26/20] isosorbide mononitrate 60 mg tablet,extended release 24 hr 60 mg PO DAILY 07/08/20 [History Last Taken 08/26/20] famotidine 20 mg tablet 20 mg PO BID 08/07/20 [History Last Taken 08/26/20] levothyroxine 50 mcg tablet 50 mcg PO DAILY 08/07/20 [History Last Taken 08/26/20] hydrocodone-acetaminophen 1 tablet PO Q6H PRN PRN 08/17/20 [History Last Taken 08/26/20] sertraline 50 mg PO DAILY 08/17/20 [History Last Taken 08/26/20] sucralfate 1 gm PO BID 08/22/20 [History Last Taken 08/26/20] furosemide 40 mg PO BID 08/26/20 [History Last Taken 08/26/20] magnesium oxide 400 mg PO DAILY 08/26/20 [History Last Taken 08/26/20] turmeric root extract 500 mg PO DAILY 08/26/20 [History Last Taken 08/26/20] Allergy/AdvReac Type Severity Reaction Status Date / Time enalaprilat [From Vasotec] Allergy Other Verified 08/22/20 21:45 ezetimibe [From Zetia] AdvReac Upset Verified 08/26/20 15:29 Stomach meperidine [From Demerol] AdvReac Nausea Verified 08/22/20 21:45 mirtazapine [From Remeron] AdvReac Other Verified 08/22/20 21:45 zolpidem [From Ambien] AdvReac Other Verified 08/22/20 21:45 Family History Father Heart disease Brother Diabetes Mother COPD (chronic obstructive pulmonary disease) Grandfather Heart disease Surgical History History of appendectomy History of carpal tunnel surgery History of left breast biopsy History of total hysterectomy Hx of atrioventricular node ablation Presence of coronary angioplasty implant and graft (~08/20/19) S/P PTCA (percutaneous transluminal coronary angioplasty) Social History Smoking Status: Never smoker alcohol intake: never substance use type: does not use caffeine: Yes Type: coffee Number of servings: 1 Lab / Micro Data Result Diagrams: 08/26/20 16:00 08/26/20 16:00 Patient is an 84-year-old female with a significant history of heart failure; CAD status post stent; atrial fibrillation who was recently at [facility] for a pacemaker and who was discharged from our hospital a day before this presentation presented with shortness of breath. Reportedly she had some improvement in shortness of breath from her most recent hospitalization. However on this day of presentation her history of shortness of breath worsened. Reportedly per paramedics her oxygen saturation was low to mid 80s. Patient required nasal cannula oxygen although at baseline she does not use oxygen. Associated with her symptoms is orthopnea and swelling of her bilateral feet. Further she is fatigued and weak. Although she is on p.o. Lasix she was hardly making any urine at home. She has a productive cough with distasteful sputum Alert and oriented x3 Nontraumatic; normocephalic Lung clear with scattered wheezes and rhonchi Heart sounds S1-S2. Abdomen bowel sounds present soft, nontender nondistended Bilateral feet and lower legs with edema. Petechiae of right lower leg Pneumonia Gram-positive; gram-negative. Discussed with admitting department doctor who will get rapid Covid screen. We will check procalcitonin. Vancomycin and Zosyn ordered emergency department. Will de-escalate to ceftriaxone and azithromycin. Will check procalcitonin. Blood cultures were ordered in the emergency department; follow. Chest x-ray independently interpreted and compared with previous CXR showed increasing consolidation of right base and mildly to moderate diffuse interstitial infiltrates. Acute Exacerbation of preserved heart failure Echocardiogram on 08/25/2019 was reviewed. Left ventricle with segmental dysfunction with preserved ejection fraction. Estimated EF was 60%. Diastolic dysfunction was unable to be assessed. Left atrium was moderately enlarged. Moderate mitral valve insufficiency. Mild to moderate tricuspid valve insufficiency. Right ventricular external pressure was 58. Daily weights Laci wrap to bilateral legs. Strict intake and outputs On Lasix 40 mg p.o. twice daily at home. Received Lasix IV and Zaroxolyn at the emergency department. Lasix 40 mg IV every 8 hours ordered. Trend BMP. Atrial fibrillation Patient paced on presentation Hold Eliquis secondary to epistaxis. Trend INR. Hypertension Blood pressure is not within goal Amlodipine; losartan and isosorbide mononitrate continued Trend blood pressure and adjust blood pressure medications. CAD status post stent Aspirin and Plavix continued. Eliquis held secondary to epistaxis. Chronic pain [place] continued Hypothyroidism Synthroid continued DVT prophylaxis SCDs ordered. Inpatient E&M: [id number] Init Hosp L3
[2020-08-26 20:26] LABS: Magnesium 1.7 mg/dL (1.6-2.6)
[2020-08-26 20:40] LABS: Procalcitonin 0.17 ng/mL (0.00-0.09)
[2020-08-26] MEDS: Potassium Chloride Oral Tablet 20 MEQ 60 MEQ PO (22:08)
[2020-08-26] MEDS: LORazepam 0.5 MG Tablet PO (22:09)
[2020-08-26] MEDS: Atorvastatin Calcium 40 MG Tablet PO (22:47)
[2020-08-26] MEDS: Losartan Potassium 50 MG Tablet PO (22:47)
[2020-08-26] MEDS: Famotidine 20 MG Tablet PO (22:49)
[2020-08-26] MEDS: Omega-3 Acid Ethyl Esters 1 GM Capsule PO (22:49)
[2020-08-26] MEDS: GABAPENTIN 600 MG TABLET PO (22:50)
[2020-08-26] MEDS: Docusate Sodium 100 MG Capsule PO (23:23)
[2020-08-26] MEDS: CLARIFY ORDER NOTE (23:40)
[2020-08-27] VITALS (9 sets, daily range): BP systolic 120–131; BP diastolic 66–75; PULSE 90–92; RESP 18; TEMP 36.7–37; O2SAT 94–97
[2020-08-27] MEDS: guaiFENesin 10 ML UDC (200MG/10ML) 20 ML PO ×3 (00:33→21:33)
[2020-08-27 02:00] LABS: M R Staph aureus DNA By PCR Negative (Negative); Probe Check PASS; Specimen Processing Control PASS
[2020-08-27] MEDS: Furosemide 40 MG/4 ML Vial IV ×3 (05:31→21:27)
[2020-08-27] MEDS: Levothyroxine 50 MCG Tablet PO (05:32)
[2020-08-27] MEDS: Sucralfate 1 GM Tablet PO ×2 (05:33→15:46)
[2020-08-27 06:40] LABS: Absolute Neutrophil Count 7.3 X10^3/uL (2.0-7.7); Basophil# 0.02 X10^3/uL; Basophil% 0.2 % (0-1); Eosinophil# 0.13 X10^3/uL; Eosinophils% 1.4 % (0-5); Hematocrit 43.9 % (37-47); Hemoglobin 14.2 g/dL (12.0-15.0); Lymphocyte % 15.9 % (19-41); Mean Corp Hgb Conc 32.3 g/dL (32-36); Mean Corpuscular Hgb 30.6 pg (27.0-32.0); Mean Corpuscular Volume 94.6 fL (81-99); Mean Platelet Vol. 9.4 fl (6.2-12.0); Monocyte# 0.51 X10^3/uL; Monocyte% 5.4 % (0-10); NRBC Flagged by Analyzer 0 % (0-5); Neutrophil # 7.25 X10^3/uL (2.7-7.7); Neutrophil % 76.7 % (47-70); Platelet Count 180 K/mm3 (150-450); RBC Distribution Width CV 16.7 % (11.6-14.6); RBC Distribution Width SD 57.6 fl (35.1-43.9); Red Blood Count 4.64 M/mm3 (4.2-5.4); White Blood Count 9.5 K/mm3 (4.4-11.0)
[2020-08-27 07:10] LABS: Anion Gap 9 (5-15); BUN 15 mg/dL (7-18); BUN/Creat Ratio 18.2 RATIO (10-20); Calcium,Total 9.2 mg/dL (8.5-10.1); Chloride 92 mmol/L (98-107); Creatinine, Serum 0.82 mg/dL (0.55-1.02); EST Glomerular Filtration Rate 70 mL/min (>60); Est Glom Filt Rate - Afr Amer 85 mL/min (>60); Glucose 100 mg/dL (74-106); Phosphorus 3.3 mg/dL (2.5-4.9); Potassium 3.1 mmol/L (3.5-5.1); Sodium Level 131 mmol/L (136-145)
[2020-08-27] MEDS: Multivitamins,Ther W-Minerals Tablet 1 TABLET PO (09:23)
[2020-08-27] MEDS: Potassium Chloride Oral Tablet 20 MEQ 40 MEQ PO ×2 (09:24→16:04)
[2020-08-27] MEDS: Loratadine 10 MG Tablet 5 MG PO (09:24)
[2020-08-27] MEDS: Magnesium Chloride 64 MG Delay Rel.Tablet 128 MG PO (09:25)
[2020-08-27] MEDS: Losartan Potassium 50 MG Tablet PO ×2 (09:25→21:29)
[2020-08-27] MEDS: Isosorbide Mononitrate 60 MG Tablet PO (09:25)
[2020-08-27] MEDS: Omega-3 Acid Ethyl Esters 1 GM Capsule PO ×2 (09:25→21:28)
[2020-08-27] MEDS: amLODIPine 2.5 MG Tablet PO (09:26)
[2020-08-27] MEDS: Famotidine 20 MG Tablet PO ×2 (09:26→21:28)
[2020-08-27] MEDS: Clopidogrel Bisulfate 75 MG Tablet PO (09:26)
[2020-08-27] MEDS: Calcium Carb/Vitamin D 1 TABLET Tablet PO (09:26)
[2020-08-27] MEDS: Pantoprazole Sodium 40 MG Tablet PO (09:26)
[2020-08-27] MEDS: Aspirin E.C. 81 MG Tablet PO (09:26)
[2020-08-27] MEDS: Sertraline 50 MG Tablet 75 MG PO (09:27)
[2020-08-27] MEDS: Vitamin B Comp W-C Capsule 1 CAP PO (09:27)
[2020-08-27] MEDS: GABAPENTIN 600 MG TABLET PO (09:29)
[2020-08-27] MEDS: 0.9% Saline Lock 10 ML Syringe IV ×2 (09:32→15:46)
--- NOTE | 2020-08-27 10:07 | CASEMGMT ---
VANESSA met with patient. VANESSA asked her if she feels she would like to go somewhere at discharge for rehab instead of her daughter's home. She said she would like to go to the hospital's unit. She declined list of SNF's as she wants [facility]. VANESSA told her SW will put her name on the list and we can see how she does with therapy. VANESSA called patient's daughter, Ciera and let her know SW spoke with patient and she would like to go to the hospital's Transitional Care Unit at discharge before coming home. She was in agreement with patient's plan. VANESSA called [facility] and TCU will have a bed for patient pending her being medically ready and insurance approval. 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
[2020-08-27] MEDS: Docusate Sodium 100 MG Capsule PO (10:13)
--- NOTE | 2020-08-27 10:50 | CASEMGMT ---
Readmission Chart Review: Pt was initially admitted on 08/22/20-08/25/20 for acute on chronic respiratory failure secondary to acute on chronic respiratory failure. Pt with recent pacer placement. Pt was active with [facility]. Pt denied need for SNF. Referral placed to [facility] for RN, PT and OT. Palliative Care also consulted while in hospital. Pt went to her dtr's home at [place]. She did not qualify for O2. Pt readmitted on 08/26/20 with sob, retaining fluid. [facility] had seen pt, but sent pt in to hospital after calling per dtr report. Pt pulse ox low on RA in ER. Pt admitted to PCU and wishes to be dc'd to TCU. Palliative aware pt is in the hospital and of dc plan, notified Stephie.
--- NOTE | 2020-08-27 13:53 | PN.HOSP_ITS ---
Subjective Subjective: short of breath at come. currently breathing well. Objective Data Objective Data Vital Signs: Vital Signs Temp Pulse Resp BP Pulse Ox 36.8 C 91 18 131/66 H 97 08/27/20 09:00 08/27/20 09:00 08/27/20 09:00 08/27/20 09:00 08/27/20 09:00 Oxygen Flow Rate (L/min) 2 Oxygen Delivery Method Nasal Cannula Weight: 65.1 kg Body Mass Index (BMI) 25.4 Finger Stick Blood Glucose 182 Intake & Output: Intake and Output for Last 24 Hours 08/25/20 08/26/20 08/27/20 23:59 23:59 23:59 Intake Total 636.0 / 736.0 645 / 645 Output Total 2575 / 2575 3050 / 3050 Balance -1939.0 / -1839.0 -2405 / -2405 Lab / Micro Data Result Diagrams: 08/27/20 05:55 08/27/20 05:55 Labs: Laboratory Results - last 24 hr 08/26/20 08/26/20 08/26/20 16:00 16:00 16:00 WBC 9.9 RBC 4.67 Hgb 13.7 Hct 44.0 MCV 94.2 MCH 29.3 MCHC 31.1 L RDW Std Deviation 58.7 H RDW Coeff of Brian 17.1 H Plt Count 189 MPV 9.4 Immature Gran % (Auto) 0.500 Neut % (Auto) 80.2 H Lymph % (Auto) 14.1 L [place] % (Auto) 4.1 Eos % (Auto) 1.0 Baso % (Auto) 0.1 Absolute Neuts (auto) 8.0 H Absolute Lymphs (auto) 1.40 Nucleated RBC % 0 PT 15.6 H INR 1.3 Sodium 131 L Potassium 3.4 L Chloride 95 L Carbon Dioxide 30.0 Anion Gap 6 BUN 16 Creatinine 0.87 Estim Creat Clear Calc 40.53 Est GFR (MDRD) Af Amer 80 Est GFR (MDRD) Non-Af 66 BUN/Creatinine Ratio 18.5 Glucose 129 H Lactic Acid Calcium 8.9 Phosphorus Magnesium Troponin I < 0.015 B-Natriuretic Peptide Procalcitonin MRSA (PCR) 08/26/20 08/26/20 08/26/20 16:00 16:00 16:00 WBC RBC Hgb Hct MCV MCH MCHC RDW Std Deviation RDW Coeff of Brian Plt Count MPV Immature Gran % (Auto) Neut % (Auto) Lymph % (Auto) [place] % (Auto) Eos % (Auto) Baso % (Auto) Absolute Neuts (auto) Absolute Lymphs (auto) Nucleated RBC % PT INR Sodium Potassium Chloride Carbon Dioxide Anion Gap BUN Creatinine Estim Creat Clear Calc Est GFR (MDRD) Af Amer Est GFR (MDRD) Non-Af BUN/Creatinine Ratio Glucose Lactic Acid Calcium Phosphorus Magnesium 1.7 Troponin I B-Natriuretic Peptide 684.4 H Procalcitonin 0.17 H MRSA (PCR) 08/26/20 08/27/20 08/27/20 17:21 00:38 05:55 WBC 9.5 RBC 4.64 Hgb 14.2 Hct 43.9 MCV 94.6 MCH 30.6 MCHC 32.3 RDW Std Deviation 57.6 H RDW Coeff of Brian 16.7 H Plt Count 180 MPV 9.4 Immature Gran % (Auto) 0.400 Neut % (Auto) 76.7 H Lymph % (Auto) 15.9 L [place] % (Auto) 5.4 Eos % (Auto) 1.4 Baso % (Auto) 0.2 Absolute Neuts (auto) 7.3 Absolute Lymphs (auto) 1.50 Nucleated RBC % 0 PT INR Sodium Potassium Chloride Carbon Dioxide Anion Gap BUN Creatinine Estim Creat Clear Calc Est GFR (MDRD) Af Amer Est GFR (MDRD) Non-Af BUN/Creatinine Ratio Glucose Lactic Acid 1.2 Calcium Phosphorus Magnesium Troponin I B-Natriuretic Peptide Procalcitonin MRSA (PCR) Negative 08/27/20 05:55 WBC RBC Hgb Hct MCV MCH MCHC RDW Std Deviation RDW Coeff of Brian Plt Count MPV Immature Gran % (Auto) Neut % (Auto) Lymph % (Auto) [place] % (Auto) Eos % (Auto) Baso % (Auto) Absolute Neuts (auto) Absolute Lymphs (auto) Nucleated RBC % PT INR Sodium 131 L Potassium 3.1 L Chloride 92 L Carbon Dioxide 30.0 Anion Gap 9 BUN 15 Creatinine 0.82 Estim Creat Clear Calc 43.00 Est GFR (MDRD) Af Amer 85 Est GFR (MDRD) Non-Af 70 BUN/Creatinine Ratio 18.2 Glucose 100 Lactic Acid Calcium 9.2 Phosphorus 3.3 Magnesium Troponin I B-Natriuretic Peptide Procalcitonin MRSA (PCR) Micro: Microbiology 08/26/20 19:31 Nasal Secretion SARS-CoV-2 Antigen (Rapid) - Final ABG Data ABG results: ABG 08/26/20 16:20 Specimen Type EMMA VBG pH 7.49 H VBG pO2 57 H VBG HCO3 28 H VBG Total CO2 30 VBG O2 Sat (Calc) 91 H VBG Base Excess 5 H POC Mix VBG pCO2 Pt Tmp 37.4 L O2 Delivery Device Cannula Liter Flow 2.0 Radiography Diagnostic Testing: Radiology Impression Chest X-Ray 08/26/20 16:13 IMPRESSION: Worsening interstitial opacifications in both lung graves since the previous study, particularly in the right lower lobe. Enlarging bilateral pleural effusions Follow-up recommended to assure resolution Electronically Signed: Tony Sheffield MD at 16:34 EDT , Service support , Physical Exam Const alert and no apparent distress Exam Limitations: no limitations HEENT Head and Scalp: normocephalic Resp normal respiratory effort Resp Narrative: bibasilar crackles. Cardio regular rate, regular rhythm, S1 normal heart sound and S2 normal heart sound GI normal to inspection, nondistended, normoactive bowel sounds, non-tender and non-distended Extremity Extremity Narrative: GLORIA wraps in place--did not remove. Neuro Sensorium / Orientation: awake and alert Assessment & Plan Assessment/Plan (1) Acute respiratory failure with hypoxia: Status: Acute Code(s): J96.01 - Acute respiratory failure with hypoxia Plan: POA 2/2 Acute HFpEF and pleural effusions Doubt PNA, but will continue with abx for now. If Cx negative, then will dc abx in next 24h (2) (HFpEF) heart failure with preserved ejection fraction: Status: Acute Code(s): I50.30 - Unspecified diastolic (congestive) heart failure Qualifiers: Heart failure chronicity: acute Qualified Code(s): I50.31 - Acute diastolic (congestive) heart failure Plan: EF 60% from 2d echo from 08/23 Complicated by pulmonary HTN with RVSP of 58mmHg continue furosemide continue ARB (3) Pleural effusion: Status: Acute Code(s): J90 - Pleural effusion, not elsewhere classified Plan: 2/2 CHF monitor consider CXR in 1-2 months to eval for resolution hold on thora at this time (4) Hypokalemia: Status: Acute Code(s): E87.6 - Hypokalemia Plan: replace Mag 1.7, replace monitor (5) Afib: Status: Chronic Code(s): I48.91 - Unspecified atrial fibrillation Qualifiers: Atrial fibrillation type: unspecified chronic Qualified Code(s): I48.20 - Chronic atrial fibrillation, unspecified Plan: rate controlled hold apixaban for now (6) Epistaxis: Status: Acute Code(s): R04.0 - Epistaxis Plan: so far resolved continue to hold apixaban for now, likely could resume in 1-2 days (7) Debility: Status: Acute Code(s): R53.81 - Other malaise Plan: PT OT eval Pt now open to SNF (8) Venous thromboembolism (VTE) prophylaxis provided on arrival: Status: Acute Plan: scd Inpatient E&M: 06215 [facility] Hosp L3
--- NOTE | 2020-08-27 15:22 | CASEMGMT ---
VANESSA faxed clinicals to [employer] to get the okay to proceed with requesting pre-cert. Plan: d/c to [facility] pending insurance approval. Danyelle OMALLEY
[2020-08-27] MEDS: Gabapentin 600 MG Tablet PO (21:28)
[2020-08-27] MEDS: Atorvastatin Calcium 40 MG Tablet PO (21:29)
[2020-08-27] MEDS: traZODone 50 MG Tablet PO (23:07)
[2020-08-28] VITALS (12 sets, daily range): BP systolic 110–122; BP diastolic 57–72; PULSE 89–97; RESP 16–18; TEMP 36.4–37; O2SAT 93–97
[2020-08-28 04:46] LABS: Absolute Lymphocyte Count 1.44 X10^3/uL (0.83-4.51); Absolute Neutrophil Count 6.3 X10^3/uL (2.0-7.7); Basophil# 0.01 X10^3/uL; Basophil% 0.1 % (0-1); Eosinophil# 0.14 X10^3/uL; Eosinophils% 1.7 % (0-5); Hematocrit 41.4 % (37-47); Hemoglobin 13.1 g/dL (12.0-15.0); Lymphocyte # 1.44 X10^3/ul (0.83-4.51); Lymphocyte % 17.2 % (19-41); Mean Corp Hgb Conc 31.6 g/dL (32-36); Mean Corpuscular Hgb 29.5 pg (27.0-32.0); Mean Corpuscular Volume 93.2 fL (81-99); Mean Platelet Vol. 9.3 fl (6.2-12.0); Monocyte# 0.42 X10^3/uL; NRBC Flagged by Analyzer 0 % (0-5); Neutrophil # 6.29 X10^3/uL (2.7-7.7); Neutrophil % 75.3 % (47-70); Platelet Count 177 K/mm3 (150-450); RBC Distribution Width CV 16.2 % (11.6-14.6); RBC Distribution Width SD 54.8 fl (35.1-43.9); Red Blood Count 4.44 M/mm3 (4.2-5.4); White Blood Count 8.4 K/mm3 (4.4-11.0)
[2020-08-28 05:03] LABS: Anion Gap 7 (5-15); BUN 20 mg/dL (7-18); BUN/Creat Ratio 21.9 RATIO (10-20); Calcium,Total 8.7 mg/dL (8.5-10.1); Chloride 93 mmol/L (98-107); Creatinine, Serum 0.91 mg/dL (0.55-1.02); EST Glomerular Filtration Rate 62 mL/min (>60); Est Glom Filt Rate - Afr Amer 76 mL/min (>60); Estimated Creatinine Clearance 38.75 ml/min; Glucose 111 mg/dL (74-106); Potassium 2.9 mmol/L (3.5-5.1); Sodium Level 131 mmol/L (136-145)
[2020-08-28] MEDS: Furosemide 40 MG/4 ML Vial IV ×2 (06:11→13:18)
[2020-08-28] MEDS: Sucralfate 1 GM Tablet PO ×2 (06:11→16:29)
[2020-08-28] MEDS: Levothyroxine 50 MCG Tablet PO (06:11)
[2020-08-28] MEDS: amLODIPine 2.5 MG Tablet PO (09:18)
[2020-08-28] MEDS: Magnesium Chloride 64 MG Delay Rel.Tablet 128 MG PO (09:18)
[2020-08-28] MEDS: Calcium Carb/Vitamin D 1 TABLET Tablet PO (09:18)
[2020-08-28] MEDS: Potassium Chloride Oral Tablet 20 MEQ 40 MEQ PO ×2 (09:18→16:29)
[2020-08-28] MEDS: Clopidogrel Bisulfate 75 MG Tablet PO (09:18)
[2020-08-28] MEDS: Gabapentin 600 MG Tablet PO ×2 (09:18→20:56)
[2020-08-28] MEDS: Isosorbide Mononitrate 60 MG Tablet PO (09:18)
[2020-08-28] MEDS: Aspirin E.C. 81 MG Tablet PO (09:18)
[2020-08-28] MEDS: Famotidine 20 MG Tablet PO ×2 (09:18→20:57)
[2020-08-28] MEDS: Sertraline 50 MG Tablet 75 MG PO (09:19)
[2020-08-28] MEDS: Multivitamins,Ther W-Minerals Tablet 1 TABLET PO (09:20)
[2020-08-28] MEDS: Pantoprazole Sodium 40 MG Tablet PO (09:20)
[2020-08-28] MEDS: Omega-3 Acid Ethyl Esters 1 GM Capsule PO ×2 (09:20→20:56)
[2020-08-28] MEDS: Vitamin B Comp W-C Capsule 1 CAP PO (09:20)
[2020-08-28] MEDS: Loratadine 10 MG Tablet 5 MG PO (09:20)
[2020-08-28] MEDS: Losartan Potassium 50 MG Tablet PO ×2 (09:20→20:56)
[2020-08-28] MEDS: 0.9% Saline Lock 10 ML Syringe IV ×2 (09:29→13:18)
--- NOTE | 2020-08-28 11:49 | CASEMGMT ---
VANESSA is having difficulties getting patient's clinicals to fax to [facility] for some reason. VANESSA called Katelyn with [facility] and left her a voice mail requesting a return call. Danyelle OMALLEY
--- NOTE | 2020-08-28 12:15 | CASEMGMT ---
VANESSA received a voice mail from Katelyn with [employer]. She asked VANESSA to fax the OT evaluation as it did not go through previously. VANESSA re-faxed the OT evaluation. Await response from [facility]. Danyelle OMALLEY
--- NOTE | 2020-08-28 14:17 | CASEMGMT ---
VANESSA checked with Radha at [facility] and she still has not received the OT evaluation. VANESSA re-faxed it again. Danyelle Farris PERSONNEL PLACEMENT SPECIALIST WATER TREATMENT TECHNICIAN
--- NOTE | 2020-08-28 15:28 | PCM.PN.HOSP ---
Subjective Subjective: breathing better. tolerating room air. Objective Data Objective Data Vital Signs: Vital Signs Temp Pulse Resp BP Pulse Ox 36.4 C L 93 16 112/70 96 08/28/20 14:50 08/28/20 14:50 08/28/20 14:50 08/28/20 14:50 08/28/20 14:50 Oxygen Flow Rate (L/min) 2 Oxygen Delivery Method Room Air Weight: 61.2 kg Body Mass Index (BMI) 25.4 Finger Stick Blood Glucose 182 Intake & Output: Intake and Output for Last 24 Hours 08/26/20 08/27/20 08/28/20 23:59 23:59 23:59 Intake Total 636.0 / 736.0 1005 / 1165 765 / 765 Output Total 2575 / 2575 4350 / 5600 3500 / 3500 Balance -1939.0 / -1839.0 -3345 / -4435 -2735 / -2735 Lab / Micro Data Result Diagrams: 08/28/20 04:10 08/28/20 04:10 Labs: Laboratory Results - last 24 hr 08/28/20 08/28/20 04:10 04:10 WBC 8.4 RBC 4.44 Hgb 13.1 Hct 41.4 MCV 93.2 MCH 29.5 MCHC 31.6 L RDW Std Deviation 54.8 H RDW Coeff of Brian 16.2 H Plt Count 177 MPV 9.3 Immature Gran % (Auto) 0.700 Neut % (Auto) 75.3 H Lymph % (Auto) 17.2 L [place] % (Auto) 5.0 Eos % (Auto) 1.7 Baso % (Auto) 0.1 Absolute Neuts (auto) 6.3 Absolute Lymphs (auto) 1.44 Nucleated RBC % 0 Sodium 131 L Potassium 2.9 L Chloride 93 L Carbon Dioxide 31.0 Anion Gap 7 BUN 20 H Creatinine 0.91 Estim Creat Clear Calc 38.75 Est GFR (MDRD) Af Amer 76 Est GFR (MDRD) Non-Af 62 BUN/Creatinine Ratio 21.9 H Glucose 111 H Calcium 8.7 Magnesium 2.0 Micro: Microbiology 08/26/20 19:31 Nasal Secretion SARS-CoV-2 Antigen (Rapid) - Final Physical Exam Const alert Resp normal respiratory effort and clear to auscultation bilaterally Cardio regular rate, regular rhythm, S1 normal heart sound and S2 normal heart sound GI normal to inspection, nondistended, normoactive bowel sounds Extremity Extremity Narrative: GLORIA wraps in place. Assessment & Plan Assessment/Plan (1) Acute respiratory failure with hypoxia: Status: Acute Code(s): J96.01 - Acute respiratory failure with hypoxia Plan: Improved POA 2/2 Acute HFpEF and pleural effusions Pneumonia ruled out. Cx negative. DC abx (2) (HFpEF) heart failure with preserved ejection fraction: Status: Acute Code(s): I50.30 - Unspecified diastolic (congestive) heart failure Qualifiers: Heart failure chronicity: acute Qualified Code(s): I50.31 - Acute diastolic (congestive) heart failure Plan: EF 60% from 2d echo from 08/23 Complicated by pulmonary HTN with RVSP of 58mmHg continue furosemide, change back to PO continue ARB (3) Pleural effusion: Status: Acute Code(s): J90 - Pleural effusion, not elsewhere classified Plan: 2/2 CHF monitor consider CXR in 1-2 months to eval for resolution hold off thora at this time (4) Hypokalemia: Status: Acute Code(s): E87.6 - Hypokalemia Plan: continue to replace Mag 2 monitor (5) Afib: Status: Chronic Code(s): I48.91 - Unspecified atrial fibrillation Qualifiers: Atrial fibrillation type: unspecified chronic Qualified Code(s): I48.20 - Chronic atrial fibrillation, unspecified Plan: rate controlled hold apixaban for now (6) Epistaxis: Status: Acute Code(s): R04.0 - Epistaxis Plan: so far resolved resume apixaban (7) Debility: Status: Acute Code(s): R53.81 - Other malaise Plan: PT OT eval Pt now open to SNF awaiting on precert (8) Venous thromboembolism (VTE) prophylaxis provided on arrival: Status: Acute Plan: scd Visit Charges Inpatient E&M: 53549 Subs Hosp L2
[2020-08-28] MEDS: Potassium Chloride Oral Tablet 20 MEQ 60 MEQ PO (16:28)
[2020-08-28] MEDS: Furosemide 40 MG Tablet PO (16:31)
[2020-08-28 16:56] LABS: Bedside Glucose 100 mg/dL (70-110)
--- NOTE | 2020-08-28 17:26 | CASEMGMT ---
Radha from [facility] received VANESSA's OT note. She is in agreement with pursing pre-cert. Message left for Fariha however, she is gone for the day. Will have to wait on pre-cert before she can go to TCU. Plan: TCU pending insurance approval. Danyelle Farris LATHER APPRENTICE LYSSA
[2020-08-28] MEDS: Atorvastatin Calcium 40 MG Tablet PO (20:56)
[2020-08-28] MEDS: traZODone 50 MG Tablet PO (21:01)
[2020-08-28] MEDS: Pramipexole Di-HCl 0.25 MG Tablet PO (21:58)
[2020-08-28] MEDS: HYDROcodone Bitartrate/Apap 5/325 Tablet PO (22:05)
[2020-08-29] VITALS (11 sets, daily range): BP systolic 130–135; BP diastolic 70–82; PULSE 89–96; RESP 16–18; TEMP 36.4–36.6; O2SAT 95–98
[2020-08-29] MEDS: 0.9% Saline Lock 10 ML Syringe IV (06:36)
[2020-08-29] MEDS: Sucralfate 1 GM Tablet PO ×2 (06:36→17:54)
[2020-08-29] MEDS: Levothyroxine 50 MCG Tablet PO (06:36)
[2020-08-29 06:57] LABS: Absolute Lymphocyte Count 1.41 X10^3/uL (0.83-4.51); Absolute Neutrophil Count 5.2 X10^3/uL (2.0-7.7); Basophil# 0.03 X10^3/uL; Basophil% 0.4 % (0-1); Eosinophil# 0.17 X10^3/uL; Eosinophils% 2.3 % (0-5); Hematocrit 41.4 % (37-47); Hemoglobin 13.3 g/dL (12.0-15.0); Lymphocyte # 1.41 X10^3/ul (0.83-4.51); Lymphocyte % 19.2 % (19-41); Mean Corp Hgb Conc 32.1 g/dL (32-36); Mean Corpuscular Hgb 30.6 pg (27.0-32.0); Mean Corpuscular Volume 95.2 fL (81-99); Mean Platelet Vol. 9.3 fl (6.2-12.0); Monocyte# 0.48 X10^3/uL; Monocyte% 6.5 % (0-10); NRBC Flagged by Analyzer 0 % (0-5); Neutrophil # 5.21 X10^3/uL (2.7-7.7); Neutrophil % 70.9 % (47-70); Platelet Count 192 K/mm3 (150-450); RBC Distribution Width CV 16.4 % (11.6-14.6); RBC Distribution Width SD 57.6 fl (35.1-43.9); Red Blood Count 4.35 M/mm3 (4.2-5.4); White Blood Count 7.4 K/mm3 (4.4-11.0)
[2020-08-29 07:25] LABS: Anion Gap 4 (5-15); BUN 26 mg/dL (7-18); BUN/Creat Ratio 24.5 RATIO (10-20); Calcium,Total 8.6 mg/dL (8.5-10.1); Chloride 100 mmol/L (98-107); Creatinine, Serum 1.06 mg/dL (0.55-1.02); EST Glomerular Filtration Rate 53 mL/min (>60); Est Glom Filt Rate - Afr Amer 64 mL/min (>60); Estimated Creatinine Clearance 33.26 ml/min; Glucose 93 mg/dL (74-106); Potassium 3.4 mmol/L (3.5-5.1); Sodium Level 135 mmol/L (136-145)
[2020-08-29] MEDS: Isosorbide Mononitrate 60 MG Tablet PO (08:11)
[2020-08-29] MEDS: Aspirin E.C. 81 MG Tablet PO (08:11)
[2020-08-29] MEDS: Multivitamins,Ther W-Minerals Tablet 1 TABLET PO (08:11)
[2020-08-29] MEDS: Potassium Chloride Oral Tablet 20 MEQ 40 MEQ PO ×2 (08:11→17:54)
[2020-08-29] MEDS: Clopidogrel Bisulfate 75 MG Tablet PO (08:11)
[2020-08-29] MEDS: Gabapentin 600 MG Tablet PO ×2 (08:11→21:51)
[2020-08-29] MEDS: Omega-3 Acid Ethyl Esters 1 GM Capsule PO ×2 (08:11→20:24)
[2020-08-29] MEDS: Calcium Carb/Vitamin D 1 TABLET Tablet PO (08:11)
[2020-08-29] MEDS: Vitamin B Comp W-C Capsule 1 CAP PO (08:11)
[2020-08-29] MEDS: Sertraline 50 MG Tablet 75 MG PO (08:12)
[2020-08-29] MEDS: Losartan Potassium 50 MG Tablet PO ×2 (08:12→20:23)
[2020-08-29] MEDS: Pantoprazole Sodium 40 MG Tablet PO (08:12)
[2020-08-29] MEDS: Magnesium Chloride 64 MG Delay Rel.Tablet 128 MG PO (08:12)
[2020-08-29] MEDS: Famotidine 20 MG Tablet PO ×2 (08:12→21:51)
[2020-08-29] MEDS: amLODIPine 2.5 MG Tablet PO (08:12)
[2020-08-29] MEDS: Loratadine 10 MG Tablet 5 MG PO (08:12)
[2020-08-29] MEDS: Furosemide 40 MG Tablet PO ×2 (08:16→17:55)
--- NOTE | 2020-08-29 14:37 | PCM.PN.HOSP ---
Subjective Subjective: Breathing well. Tolerating room air. Objective Data Objective Data Vital Signs: Vital Signs Temp Pulse Resp BP Pulse Ox 36.4 C L 94 18 130/75 H 98 08/29/20 08:23 08/29/20 12:00 08/29/20 08:23 08/29/20 08:23 08/29/20 08:23 Oxygen Flow Rate (L/min) 2 Oxygen Delivery Method Room Air Weight: 131 lb Body Mass Index (BMI) 25.4 Finger Stick Blood Glucose 182 Intake & Output: Intake and Output for Last 24 Hours 08/27/20 08/28/20 08/29/20 23:59 23:59 23:59 Intake Total 1005 / 1165 1165 / 1265 460 / 460 Output Total 4350 / 5600 5200 / 5850 1025 / 1025 Balance -3345 / -4435 -4035 / -4585 -565 / -565 Lab / Micro Data Result Diagrams: 08/29/20 05:40 08/29/20 05:40 Labs: Laboratory Results - last 24 hr 08/28/20 08/29/20 08/29/20 16:27 05:40 05:40 WBC 7.4 RBC 4.35 Hgb 13.3 Hct 41.4 MCV 95.2 MCH 30.6 MCHC 32.1 RDW Std Deviation 57.6 H RDW Coeff of Brian 16.4 H Plt Count 192 MPV 9.3 Immature Gran % (Auto) 0.700 Neut % (Auto) 70.9 H Lymph % (Auto) 19.2 [place] % (Auto) 6.5 Eos % (Auto) 2.3 Baso % (Auto) 0.4 Absolute Neuts (auto) 5.2 Absolute Lymphs (auto) 1.41 Nucleated RBC % 0 Sodium 135 L Potassium 3.4 L Chloride 100 Carbon Dioxide 31.0 Anion Gap 4 L BUN 26 H Creatinine 1.06 H Estim Creat Clear Calc 33.26 Est GFR (MDRD) Af Amer 64 Est GFR (MDRD) Non-Af 53 L BUN/Creatinine Ratio 24.5 H Glucose 93 Calcium 8.6 POC Glucose 100 Micro: Microbiology 08/26/20 17:33 Blood Culture (Wb) - Right Wrist Blood Culture - Preliminary No growth in 48 hours. 08/26/20 17:21 Blood Culture (Wb) - Anticubital Left Blood Culture - Preliminary No growth in 48 hours. 08/26/20 19:31 Nasal Secretion SARS-CoV-2 Antigen (Rapid) - Final Physical Exam Const alert Exam Limitations: no limitations HEENT Head and Scalp: normocephalic Eyes PERRL Neck no lymphadenopathy Resp normal respiratory effort, no use of accessory muscles and clear to auscultation bilaterally Cardio regular rate, regular rhythm, S1 normal heart sound and S2 normal heart sound GI normal to inspection, nondistended, normoactive bowel sounds Assessment & Plan Assessment/Plan (1) Acute respiratory failure with hypoxia: Status: Acute Code(s): J96.01 - Acute respiratory failure with hypoxia Plan: Improved POA 2/2 Acute HFpEF and pleural effusions Pneumonia ruled out. Cx negative. DC abx (2) (HFpEF) heart failure with preserved ejection fraction: Status: Acute Code(s): I50.30 - Unspecified diastolic (congestive) heart failure Qualifiers: Heart failure chronicity: acute Qualified Code(s): I50.31 - Acute diastolic (congestive) heart failure Plan: EF 60% from 2d echo from 08/23 Complicated by pulmonary HTN with RVSP of 58mmHg continue furosemide, change back to PO continue ARB (3) Pleural effusion: Status: Acute Code(s): J90 - Pleural effusion, not elsewhere classified Plan: 2/2 CHF monitor consider CXR in 1-2 months to eval for resolution hold off thora at this time (4) Hypokalemia: Status: Acute Code(s): E87.6 - Hypokalemia Plan: continue to replace Mag 2 monitor (5) Afib: Status: Chronic Code(s): I48.91 - Unspecified atrial fibrillation Qualifiers: Atrial fibrillation type: unspecified chronic Qualified Code(s): I48.20 - Chronic atrial fibrillation, unspecified Plan: rate controlled hold apixaban for now (6) Epistaxis: Status: Acute Code(s): R04.0 - Epistaxis Plan: so far resolved resume apixaban (7) Debility: Status: Acute Code(s): R53.81 - Other malaise Plan: PT OT eval Pt now open to SNF awaiting on precert (8) Venous thromboembolism (VTE) prophylaxis provided on arrival: Status: Acute Plan: scd Visit Charges Inpatient E&M: 76460 Subs Hosp L2
[2020-08-29] MEDS: HYDROcodone Bitartrate/Apap 5/325 Tablet PO (20:21)
[2020-08-29] MEDS: Atorvastatin Calcium 40 MG Tablet PO (20:22)
[2020-08-29] MEDS: APIXABAN 2.5 MG TABLET PO (21:51)
[2020-08-29] MEDS: traZODone 50 MG Tablet PO (21:51)
[2020-08-30] VITALS (9 sets, daily range): BP systolic 120–137; BP diastolic 68–76; PULSE 90–91; RESP 18; TEMP 35.9–36.8; O2SAT 96–99
[2020-08-30] MEDS: Sucralfate 1 GM Tablet PO ×2 (05:53→15:33)
[2020-08-30] MEDS: Levothyroxine 50 MCG Tablet PO (05:53)
[2020-08-30 06:38] LABS: Anion Gap 7 (5-15); BUN 20 mg/dL (7-18); BUN/Creat Ratio 26.8 RATIO (10-20); Calcium,Total 8.3 mg/dL (8.5-10.1); Chloride 102 mmol/L (98-107); Creatinine, Serum 0.75 mg/dL (0.55-1.02); EST Glomerular Filtration Rate 79 mL/min (>60); Est Glom Filt Rate - Afr Amer 95 mL/min (>60); Estimated Creatinine Clearance 35.26 ml/min; Glucose 86 mg/dL (74-106); Potassium 3.9 mmol/L (3.5-5.1); Sodium Level 135 mmol/L (136-145)
[2020-08-30] MEDS: Potassium Chloride Oral Tablet 20 MEQ 40 MEQ PO ×2 (08:59→17:04)
[2020-08-30] MEDS: Calcium Carb/Vitamin D 1 TABLET Tablet PO (08:59)
[2020-08-30] MEDS: Aspirin E.C. 81 MG Tablet PO (08:59)
[2020-08-30] MEDS: APIXABAN 2.5 MG TABLET PO ×2 (08:59→21:45)
[2020-08-30] MEDS: Famotidine 20 MG Tablet PO ×2 (08:59→21:45)
[2020-08-30] MEDS: Multivitamins,Ther W-Minerals Tablet 1 TABLET PO (08:59)
[2020-08-30] MEDS: Loratadine 10 MG Tablet 5 MG PO (09:00)
[2020-08-30] MEDS: Losartan Potassium 50 MG Tablet PO ×2 (09:00→21:45)
[2020-08-30] MEDS: amLODIPine 2.5 MG Tablet PO (09:00)
[2020-08-30] MEDS: Isosorbide Mononitrate 60 MG Tablet PO (09:00)
[2020-08-30] MEDS: Vitamin B Comp W-C Capsule 1 CAP PO (09:00)
[2020-08-30] MEDS: Clopidogrel Bisulfate 75 MG Tablet PO (09:00)
[2020-08-30] MEDS: Magnesium Chloride 64 MG Delay Rel.Tablet 128 MG PO (09:00)
[2020-08-30] MEDS: Sertraline 50 MG Tablet 75 MG PO (09:00)
[2020-08-30] MEDS: Pantoprazole Sodium 40 MG Tablet PO (09:00)
[2020-08-30] MEDS: Omega-3 Acid Ethyl Esters 1 GM Capsule PO ×2 (09:00→21:44)
[2020-08-30] MEDS: Furosemide 40 MG Tablet PO ×2 (09:00→17:04)
[2020-08-30] MEDS: Gabapentin 600 MG Tablet PO ×2 (10:23→21:45)
--- NOTE | 2020-08-30 12:25 | PCM.PN.HOSP ---
Subjective Subjective: no new complaints Objective Data Objective Data Vital Signs: Vital Signs Temp Pulse Resp BP Pulse Ox 36.7 C 91 18 132/69 H 97 08/30/20 09:05 08/30/20 09:05 08/30/20 09:05 08/30/20 09:05 08/30/20 09:05 Oxygen Flow Rate (L/min) 2 Oxygen Delivery Method Room Air Weight: 132 lb 0.91 oz Body Mass Index (BMI) 25.4 Finger Stick Blood Glucose 182 Intake & Output: Intake and Output for Last 24 Hours 08/28/20 08/29/20 08/30/20 23:59 23:59 23:59 Intake Total 1165 / 1265 820 / 1120 660 / 660 Output Total 5200 / 5850 1025 / 1025 Balance -4035 / -4585 -205 / 95 660 / 660 Lab / Micro Data Result Diagrams: 08/29/20 05:40 08/30/20 05:19 Labs: Laboratory Results - last 24 hr 08/30/20 05:19 Sodium 135 L Potassium 3.9 Chloride 102 Carbon Dioxide 26.0 Anion Gap 7 BUN 20 H Creatinine 0.75 Estim Creat Clear Calc 35.26 Est GFR (MDRD) Af Amer 95 Est GFR (MDRD) Non-Af 79 BUN/Creatinine Ratio 26.8 H Glucose 86 Calcium 8.3 L Micro: Microbiology 08/26/20 17:33 Blood Culture (Wb) - Right Wrist Blood Culture - Preliminary No growth in 48 hours. 08/26/20 17:21 Blood Culture (Wb) - Anticubital Left Blood Culture - Preliminary No growth in 48 hours. 08/26/20 19:31 Nasal Secretion SARS-CoV-2 Antigen (Rapid) - Final Physical Exam Const alert and no apparent distress General Appearance: cooperative Orientation / Consciousness: oriented to person and oriented to place Exam Limitations: no limitations HEENT normocephalic and head/scalp atraumatic Eyes PERRL and EOMs intact bilaterally Neck no lymphadenopathy, supple and no JVD Lymph Lymphatic: no lymphadenopathy noted Resp normal respiratory effort, no use of accessory muscles and clear to auscultation bilaterally Resp Narrative: bibasilar crackles. Effort and Inspection: tachypneic and labored Auscultation: rales bilateral and diffuse Cardio regular rate, regular rhythm, S1 normal heart sound, S2 normal heart sound and no murmurs GI normal to inspection, nondistended, normoactive bowel sounds, soft to palpation, non-tender and non-distended Extremity Extremity Narrative: GLORIA wraps in place. General Extremity: edema bilateral lower extremity (1+) Skin General Skin Exam: no breakdown and turgor normal Lesions: no lesions Rashes: no rashes Neuro CN's II-XII intact bilaterally Sensorium / Orientation: awake and alert Psych Psych Narrative: Appearance: appropriate Mood & Affect: anxious Assessment & Plan Assessment/Plan (1) Acute respiratory failure with hypoxia: Status: Acute Code(s): J96.01 - Acute respiratory failure with hypoxia Plan: Improved POA 2/2 Acute HFpEF and pleural effusions Pneumonia ruled out. Cx negative. DC abx (2) (HFpEF) heart failure with preserved ejection fraction: Status: Acute Code(s): I50.30 - Unspecified diastolic (congestive) heart failure Qualifiers: Heart failure chronicity: acute Qualified Code(s): I50.31 - Acute diastolic (congestive) heart failure Plan: EF 60% from 2d echo from 08/23 Complicated by pulmonary HTN with RVSP of 58mmHg continue furosemide, change back to PO continue ARB (3) Pleural effusion: Status: Acute Code(s): J90 - Pleural effusion, not elsewhere classified Plan: 2/2 CHF monitor consider CXR in 1-2 months to eval for resolution hold off thora at this time (4) Hypokalemia: Status: Acute Code(s): E87.6 - Hypokalemia Plan: continue to replace Mag 2 monitor (5) Afib: Status: Chronic Code(s): I48.91 - Unspecified atrial fibrillation Qualifiers: Atrial fibrillation type: unspecified chronic Qualified Code(s): I48.20 - Chronic atrial fibrillation, unspecified Plan: rate controlled hold apixaban for now (6) Epistaxis: Status: Acute Code(s): R04.0 - Epistaxis Plan: so far resolved resume apixaban (7) Debility: Status: Acute Code(s): R53.81 - Other malaise Plan: PT OT eval Pt now open to SNF awaiting on precert. Anticipate discharge 08/31 or 09/01. (8) Venous thromboembolism (VTE) prophylaxis provided on arrival: Status: Acute Plan: scd Visit Charges Inpatient E&M: 77700 Subs Hosp L2
--- NOTE | 2020-08-30 14:05 | PCM.TXEXTCAR ---
Diet 08/26/20 21:34 Diet: Cardiac - Heart Healthy Food consistency:: Regular Liquid Consistency:: Regular/Thin Is pt able to select menu?: Yes Routine Orders/Code Status Code Status: Full Code Wound(s) L anterior shoulder: Wound Type: Surgical Incision Therapies Weight Bearing: Full weight bearing Physical Therapy: Eval and Treat Occupational Therapy: Eval and Treat Problem/Diagnosis (1) Acute respiratory failure with hypoxia: Status: Acute (2) (HFpEF) heart failure with preserved ejection fraction: Status: Acute (3) Pleural effusion: Status: Acute (4) Hypokalemia: Status: Resolved (5) Afib: Status: Chronic (6) Epistaxis: Status: Resolved (7) Debility: Status: Chronic (8) Venous thromboembolism (VTE) prophylaxis provided on arrival: Status: Acute Allergies/Procedures Done in Hospital Allergies enalaprilat [From Vasotec] Allergy (Verified 08/22/20 21:45) Other cough ezetimibe [From Zetia] Adverse Reaction (Verified 08/26/20 15:29) Upset Stomach gi upset meperidine [From Demerol] Adverse Reaction (Verified 08/22/20 21:45) Nausea mirtazapine [From Remeron] Adverse Reaction (Verified 08/22/20 21:45) Other intolerance zolpidem [From Ambien] Adverse Reaction (Verified 08/22/20 21:45) Other sleep walking issues Procedures: None Type of Care/Length of Stay Estimated LOS: Convalescent Care Less Than 30 days Type of Care Needed: Skilled Rehab Potential: Good Prognosis: Good Additional Orders/Day of Discharge Additional Orders: Active with Palliative Care Day of Discharge: 08/31/20 Dietary and Speech Recommendations Dietitian Recommendations/Changes: continue cardiac diet; fluid restriction if indicated Ravindra Irene MS, RDN, LD Follow Up Care Please follow up with your Primary Care Physician in: 2 weeks Please Follow Up With: Kirk Gomes MD When: 4-6 weeks Discharge Plan Admission Admit Date/Time: 08/26/20 19:52 Attending Provider: Luis Carlos Winter Primary Care Provider: Gladys Pickett Discharge Orders/Prescriptions Prescriptions: New docusate sodium [DOK] 100 mg Capsule 100 mg PO BID PRN PRN (Reason: Constipation) Qty: 1 RF: 0 Continued trazodone 50 mg tablet 50 mg PO QHS PRN (Reason: Sleep) RF: 0 isosorbide mononitrate 60 mg tablet extended release 24 hr 60 mg PO DAILY RF: 0 levothyroxine 50 mcg tablet 50 mcg PO DAILY RF: 0 famotidine 20 mg tablet 20 mg PO BID RF: 0 losartan 50 MG tablet 50 mg PO BID RF: 0 atorvastatin 40 MG tablet 40 mg PO DAILY RF: 0 clopidogrel 75 MG tablet 75 mg PO DAILY RF: 0 pramipexole 0.25 MG tablet 0.25 mg PO BID PRN PRN (Reason: SCIATICA) RF: 0 gabapentin 300 MG capsule 600 mg PO BID RF: 0 aspirin 81 MG tablet 81 mg PO DAILY@0800 RF: 0 fexofenadine 60 MG tablet 60 mg PO DAILY RF: 0 calcium carbonate-vitamin D3 1 EACH tablet 1 tab PO DAILY RF: 0 flaxseed oil 1,000 MG capsule 1,000 mg PO DAILY RF: 0 pantoprazole 40 MG tablet 40 mg PO DAILY RF: 0 nitroglycerin 0.4 MG tablet 0.4 mg SL Q5M RF: 0 sertraline 25 MG tablet 25 mg PO DAILY RF: 0 vitamin B complex 1 EACH tablet 1 tab PO DAILY RF: 0 yebeojvm-tfp-IB-lycopen-lutein 1 EACH tablet 1 tab PO DAILY RF: 0 omega-3 fatty acids-fish oil 1 EACH capsule 1 ea PO BID RF: 0 melatonin 10 MG tablet 10 mg PO PRN PRN (Reason: Sleep) RF: 0 sertraline 50 MG tablet 50 mg PO DAILY RF: 0 sucralfate 1 GM tablet 1 gm PO BID RF: 0 turmeric root extract 500 mg Capsule 500 mg PO DAILY RF: 0 magnesium oxide 400 mg magnesium Tablet 400 mg PO DAILY RF: 0 furosemide 40 mg tablet 40 mg PO BID RF: 0 amlodipine 2.5 mg tablet 2.5 mg PO DAILY Qty: 90 RF: 3 apixaban 2.5 mg tablet 2.5 mg PO BID Qty: 180 RF: 3 potassium chloride 20 mEq tablet,ER particles/crystals 20 meq PO BID Qty: 180 RF: 3 Discontinued hydrocodone-acetaminophen 1 EACH tablet 1 tablet PO Q6H PRN PRN (Reason: BACK) RF: 0 Referrals: Gladys Pickett MD [Primary Care Provider] - Disposition Patient Disposition: Nursing Home Facility
[2020-08-30] MEDS: HYDROcodone Bitartrate/Apap 5/325 Tablet PO (21:41)
[2020-08-30] MEDS: Atorvastatin Calcium 40 MG Tablet PO (21:44)
[2020-08-30] MEDS: 0.9% Saline Lock 10 ML Syringe IV (21:49)
[2020-08-30] MEDS: traZODone 50 MG Tablet PO (22:28)
[2020-08-31] VITALS (9 sets, daily range): BP systolic 117–140; BP diastolic 63–82; PULSE 90–92; RESP 16–18; TEMP 36.4–36.6; O2SAT 90–99
[2020-08-31 05:43] LABS: Anion Gap 6 (5-15); BUN 17 mg/dL (7-18); BUN/Creat Ratio 22.2 RATIO (10-20); Chloride 103 mmol/L (98-107); Creatinine, Serum 0.77 mg/dL (0.55-1.02); EST Glomerular Filtration Rate 76 mL/min (>60); Est Glom Filt Rate - Afr Amer 92 mL/min (>60); Estimated Creatinine Clearance 35.26 ml/min; Glucose 92 mg/dL (74-106); Potassium 4.1 mmol/L (3.5-5.1); Sodium Level 136 mmol/L (136-145)
[2020-08-31] MEDS: Levothyroxine 50 MCG Tablet PO (05:55)
[2020-08-31] MEDS: Sucralfate 1 GM Tablet PO (05:55)
[2020-08-31] MEDS: Losartan Potassium 50 MG Tablet PO (09:32)
[2020-08-31] MEDS: 0.9% Saline Lock 10 ML Syringe IV (09:32)
[2020-08-31] MEDS: Sertraline 50 MG Tablet 75 MG PO (09:32)
[2020-08-31] MEDS: APIXABAN 2.5 MG TABLET PO (09:32)
[2020-08-31] MEDS: Magnesium Chloride 64 MG Delay Rel.Tablet 128 MG PO (09:32)
[2020-08-31] MEDS: Multivitamins,Ther W-Minerals Tablet 1 TABLET PO (09:33)
[2020-08-31] MEDS: amLODIPine 2.5 MG Tablet PO (09:33)
[2020-08-31] MEDS: Pantoprazole Sodium 40 MG Tablet PO (09:33)
[2020-08-31] MEDS: Furosemide 40 MG Tablet PO (09:33)
[2020-08-31] MEDS: Gabapentin 600 MG Tablet PO (09:33)
[2020-08-31] MEDS: Famotidine 20 MG Tablet PO (09:33)
[2020-08-31] MEDS: Aspirin E.C. 81 MG Tablet PO (09:33)
[2020-08-31] MEDS: Clopidogrel Bisulfate 75 MG Tablet PO (09:33)
[2020-08-31] MEDS: Isosorbide Mononitrate 60 MG Tablet PO (09:33)
[2020-08-31] MEDS: Calcium Carb/Vitamin D 1 TABLET Tablet PO (09:33)
[2020-08-31] MEDS: Omega-3 Acid Ethyl Esters 1 GM Capsule PO (09:33)
[2020-08-31] MEDS: Vitamin B Comp W-C Capsule 1 CAP PO (09:33)
[2020-08-31] MEDS: Potassium Chloride Oral Tablet 20 MEQ 40 MEQ PO (09:34)
[2020-08-31] MEDS: Loratadine 10 MG Tablet 5 MG PO (09:34)
--- NOTE | 2020-08-31 11:18 | CASEMGMT ---
SW checked w/Fariha in TCU this morning, precert is still pending. SW let pt know what we are still waiting for precert. Pt states understanding. SW will continue to follow. ADRIENNE Lindsay
--- NOTE | 2020-08-31 14:57 | CASEMGMT ---
Addendum entered by Ashley Kay 08/31/20 16:14: SW faxed discharge instructions to TCU. No further needs, pt to TCU today. ADRIENNE Lindsay Original Note: Precert was attained for pt to go to TCU today. SW let pt know, she is agreeable. SW asked if she would like her family called, she asked to call her daughter. SW also asked pt if she has been vaccinated for COVID, she has. SW explained if she brings her card into TCU, if it's been two weeks since her last vaccination, she will be able to have visitors. Pt states it's in her other purse and to ask her daughter to bring it in along w/some clothing. SW explained will call her daughter. SW called daughter Ciera Vora, let her know pt was authorized to go to TCU today. SW also explained that pt asked her to bring in her other purse with her COVID vaccine card in it, and once they have a copy of the card pt can have visitors as long as it's two weeks from the last vaccine. SW also let daughter know pt would like some clothing. SW suggested to daughter to call the hospital bone process operator when she gets here to see where the pt is, so she knows where to bring her clothing and vaccine card. SW also explained to daughter if she is already in TCU she may not be able to visit today, but that someone would call her from TCU to set up visits. Daughter states understanding. Physician notified that pt was authorized by insurance to go to TCU today. ADRIENNE Lindsay
--- NOTE | 2020-08-31 15:02 | TREXTCAR_ITS ---
Diet 08/26/20 21:34 Diet: Cardiac - Heart Healthy Food consistency:: Regular Liquid Consistency:: Regular/Thin Is pt able to select menu?: Yes Routine Orders/Code Status Code Status: Full Code Wound(s) L anterior shoulder: Wound Type: Surgical Incision Therapies Weight Bearing: Full weight bearing Physical Therapy: Eval and Treat Occupational Therapy: Eval and Treat Problem/Diagnosis (1) Acute respiratory failure with hypoxia: Status: Acute (2) (HFpEF) heart failure with preserved ejection fraction: Status: Acute (3) Pleural effusion: Status: Acute (4) Hypokalemia: Status: Resolved (5) Afib: Status: Chronic (6) Epistaxis: Status: Resolved (7) Debility: Status: Chronic (8) Venous thromboembolism (VTE) prophylaxis provided on arrival: Status: Acute Allergies/Procedures Done in Hospital Allergies enalaprilat [From Vasotec] Allergy (Verified 08/22/20 21:45) Other cough ezetimibe [From Zetia] Adverse Reaction (Verified 08/26/20 15:29) Upset Stomach gi upset meperidine [From Demerol] Adverse Reaction (Verified 08/22/20 21:45) Nausea mirtazapine [From Remeron] Adverse Reaction (Verified 08/22/20 21:45) Other intolerance zolpidem [From Ambien] Adverse Reaction (Verified 08/22/20 21:45) Other sleep walking issues Procedures: None Type of Care/Length of Stay Estimated LOS: Convalescent Care Less Than 30 days Type of Care Needed: Skilled Rehab Potential: Good Prognosis: Good Additional Orders/Day of Discharge Additional Orders: Active with Palliative Care Day of Discharge: 08/31/20 Dietary and Speech Recommendations Dietitian Recommendations/Changes: CHange diet to Cardiac / low sodium d/t is sues w/ CHF/edema Follow Up Care Please follow up with your Primary Care Physician in: 2 weeks Please Follow Up With: Kirk Gomes MD When: 4-6 weeks Discharge Plan Admission Admit Date/Time: 08/26/20 19:52 Primary Reason for Your Visit: acute on chronic heart failure Attending Provider: Dory Augustine Primary Care Provider: Gladys Pickett Instructions Patient Instructions: Atrial Fibrillation, ED Heart Failure, Congestive (CHF), ED High Blood Pressure ... Discharge Orders/Prescriptions Prescriptions: New docusate sodium [DOK] 100 mg Capsule 100 mg PO BID PRN PRN (Reason: Constipation) Qty: 1 RF: 0 Continued trazodone 50 mg tablet 50 mg PO QHS PRN (Reason: Sleep) RF: 0 isosorbide mononitrate 60 mg tablet extended release 24 hr 60 mg PO DAILY RF: 0 levothyroxine 50 mcg tablet 50 mcg PO DAILY RF: 0 famotidine 20 mg tablet 20 mg PO BID RF: 0 losartan 50 MG tablet 50 mg PO BID RF: 0 atorvastatin 40 MG tablet 40 mg PO DAILY RF: 0 clopidogrel 75 MG tablet 75 mg PO DAILY RF: 0 pramipexole 0.25 MG tablet 0.25 mg PO BID PRN PRN (Reason: SCIATICA) RF: 0 gabapentin 300 MG capsule 600 mg PO BID RF: 0 aspirin 81 MG tablet 81 mg PO DAILY@0800 RF: 0 fexofenadine 60 MG tablet 60 mg PO DAILY RF: 0 calcium carbonate-vitamin D3 1 EACH tablet 1 tab PO DAILY RF: 0 flaxseed oil 1,000 MG capsule 1,000 mg PO DAILY RF: 0 pantoprazole 40 MG tablet 40 mg PO DAILY RF: 0 nitroglycerin 0.4 MG tablet 0.4 mg SL Q5M RF: 0 sertraline 25 MG tablet 25 mg PO DAILY RF: 0 vitamin B complex 1 EACH tablet 1 tab PO DAILY RF: 0 phigqana-esl-OB-lycopen-lutein 1 EACH tablet 1 tab PO DAILY RF: 0 omega-3 fatty acids-fish oil 1 EACH capsule 1 ea PO BID RF: 0 melatonin 10 MG tablet 10 mg PO PRN PRN (Reason: Sleep) RF: 0 sertraline 50 MG tablet 50 mg PO DAILY RF: 0 sucralfate 1 GM tablet 1 gm PO BID RF: 0 turmeric root extract 500 mg Capsule 500 mg PO DAILY RF: 0 magnesium oxide 400 mg magnesium Tablet 400 mg PO DAILY RF: 0 furosemide 40 mg tablet 40 mg PO BID RF: 0 amlodipine 2.5 mg tablet 2.5 mg PO DAILY Qty: 90 RF: 3 apixaban 2.5 mg tablet 2.5 mg PO BID Qty: 180 RF: 3 potassium chloride 20 mEq tablet,ER particles/crystals 20 meq PO BID Qty: 180 RF: 3 Discontinued hydrocodone-acetaminophen 1 EACH tablet 1 tablet PO Q6H PRN PRN (Reason: BACK) RF: 0 Referrals: Gladys Pickett MD [Primary Care Provider] - Within 2 Weeks Disposition Disposition (needs filled in before D/C Order can be placed): Detention Facility
--- NOTE | 2020-08-31 15:08 | PCM.DC.SUM ---
Providers Date of Admission: 08/26/20 Primary Care Physician: Dr. Gladys Pickett MD Reason For Visit: HCAP / CHF EXACERBATION Diagnosis Discharge Diagnosis (1) Acute respiratory failure with hypoxia: Status: Acute Code(s): J96.01 - Acute respiratory failure with hypoxia (2) (HFpEF) heart failure with preserved ejection fraction: Status: Acute Code(s): I50.30 - Unspecified diastolic (congestive) heart failure Qualifiers: Heart failure chronicity: acute Qualified Code(s): I50.31 - Acute diastolic (congestive) heart failure (3) Pleural effusion: Status: Acute Code(s): J90 - Pleural effusion, not elsewhere classified (4) Hypokalemia: Status: Resolved Code(s): E87.6 - Hypokalemia (5) Afib: Status: Chronic Code(s): I48.91 - Unspecified atrial fibrillation Qualifiers: Atrial fibrillation type: unspecified chronic Qualified Code(s): I48.20 - Chronic atrial fibrillation, unspecified (6) Epistaxis: Status: Resolved Code(s): R04.0 - Epistaxis (7) Debility: Status: Chronic Code(s): R53.81 - Other malaise (8) Venous thromboembolism (VTE) prophylaxis provided on arrival: Status: Acute Medications at Discharge Home Medications atorvastatin 40 mg PO DAILY 08/19/19 clopidogrel 75 mg PO DAILY 08/19/19 gabapentin 600 mg PO BID 08/19/19 losartan 50 mg PO BID 08/19/19 pramipexole 0.25 mg PO BID PRN PRN 08/19/19 aspirin 81 mg PO DAILY@0800 tab 08/21/19 trazodone 50 mg tablet 50 mg PO QHS PRN 12/30/19 calcium carbonate-vitamin D3 1 tab PO DAILY 05/05/20 fexofenadine 60 mg PO DAILY 05/05/20 flaxseed oil 1,000 mg PO DAILY 05/05/20 kyvjleof-lbe-IC-lycopen-lutein 1 tab PO DAILY 05/05/20 nitroglycerin 0.4 mg SL Q5M 05/05/20 omega-3 fatty acids-fish oil 1 ea PO BID 05/05/20 pantoprazole 40 mg PO DAILY 05/05/20 sertraline 25 mg PO DAILY 05/05/20 vitamin B complex 1 tab PO DAILY 05/05/20 melatonin 10 mg PO QHS PRN PRN 05/06/20 amlodipine 2.5 mg tablet 2.5 mg PO DAILY #90 tab 06/01/20 apixaban 2.5 mg tablet 2.5 mg PO BID #180 tab 07/01/20 potassium chloride 20 mEq tablet,extended release(part/cryst) 20 meq PO BID #180 tab 07/01/20 isosorbide mononitrate 60 mg tablet,extended release 24 hr 60 mg PO DAILY 07/08/20 famotidine 20 mg tablet 20 mg PO BID 08/07/20 levothyroxine 50 mcg tablet 50 mcg PO DAILY 08/07/20 sertraline 50 mg PO DAILY 08/17/20 sucralfate 1 gm PO BID 08/22/20 furosemide 40 mg PO BID 08/26/20 magnesium oxide 400 mg PO DAILY 08/26/20 turmeric root extract 500 mg PO DAILY 08/26/20 docusate sodium [DOK] 100 mg PO BID PRN PRN #1 cap 08/30/20 Hospital Course Operations None Procedures None Summary of Care Provided Minutes Spent on Discharge: 45 Hospital Course: Patient is an 84-year-old female with a past medical history as outlined including shortness of breath and cough. Patient had been admitted numerous times during the past month prior to admission for exacerbation of heart failure. She also had a cough which is productive of brownish sputum and complains of epistasis. In the ED she was noted to be saturating at 85% on room air. She was initially admitted and managed for healthcare associated pneumonia and started on vancomycin and Zosyn which was subsequently switched to ceftriaxone and azithromycin. She was also diuresed with IV Lasix. Oxygen was titrated to maintain saturation above 90% and she was put on breathing treatments with bronchodilators. Hospital stay was also complicated by hypokalemia which resolved with replacement of potassium. Shortness of breath gradually improved and she was weaned off of oxygen. She was switched to oral Lasix. Antibiotics were discontinued as her symptoms were mainly thought to be due to acute on chronic heart failure with preserved ejection fraction. Patient remained stable and was skilled by physical therapy as needed and senior living facility. She was discharged to the transitional care unit on 08/31/2020. She is to follow-up with her primary care doctor in 1 to 2 weeks. She is also to be compliant with her diuretics. Patient was seen and examined prior to discharge. She felt well and had no complaints. Review of symptoms otherwise negative. Labs and vitals reviewed. Medication reviewed and reconciled. Physical Exam Const alert and oriented x3 General Appearance: cooperative and comfortable Orientation / Consciousness: awake, oriented to person, oriented to place and oriented to time Exam Limitations: no limitations HEENT normocephalic Eyes PERRL and EOMs intact bilaterally Neck no lymphadenopathy Resp no retractions, no use of accessory muscles and clear to auscultation bilaterally Cardio regular rate, regular rhythm, S1 normal heart sound, S2 normal heart sound and no gallops GI normal to inspection, nondistended, normoactive bowel sounds and soft to palpation Extremity normal to inspection ABG / Lab / Microbiology Data Result Diagrams: 08/29/20 05:40 08/31/20 05:00 Laboratory: Laboratory Results - last 24 hr 08/31/20 05:00 Sodium 136 Potassium 4.1 Chloride 103 Carbon Dioxide 27.0 Anion Gap 6 BUN 17 Creatinine 0.77 Estim Creat Clear Calc 35.26 Est GFR (MDRD) Af Amer 92 Est GFR (MDRD) Non-Af 76 BUN/Creatinine Ratio 22.2 H Glucose 92 Calcium 9.0 Microbiology: Microbiology 08/26/20 17:33 Blood Culture (Wb) - Right Wrist Blood Culture - Preliminary No growth in 48 hours. 08/26/20 17:21 Blood Culture (Wb) - Anticubital Left Blood Culture - Preliminary No growth in 48 hours. 08/26/20 19:31 Nasal Secretion SARS-CoV-2 Antigen (Rapid) - Final D/C Instructions Please follow up with your Primary Care Physician in: 2 weeks Please Follow Up With: Kirk Gomes MD Meaningful Use Info Meaningful Use Diagnoses (Choose all that apply): CHF CHF GLORIA/ARB ordered at discharge?: No Reason GLORIA/ARB not ordered?: Worsening renal function Documented LVEF (%): 60 Discharge Plan Admission Admit Date/Time: 08/26/20 19:52 Primary Reason for Your Visit: acute on chronic heart failure Attending Provider: Dory Augustine Primary Care Provider: Gladys Pickett Instructions Patient Instructions: Atrial Fibrillation, ED Heart Failure, Congestive (CHF), ED High Blood Pressure ... Discharge Orders/Prescriptions Prescriptions: New docusate sodium [DOK] 100 mg Capsule 100 mg PO BID PRN PRN (Reason: Constipation) Qty: 1 RF: 0 Continued trazodone 50 mg tablet 50 mg PO QHS PRN (Reason: Sleep) RF: 0 isosorbide mononitrate 60 mg tablet extended release 24 hr 60 mg PO DAILY RF: 0 levothyroxine 50 mcg tablet 50 mcg PO DAILY RF: 0 famotidine 20 mg tablet 20 mg PO BID RF: 0 losartan 50 MG tablet 50 mg PO BID RF: 0 atorvastatin 40 MG tablet 40 mg PO DAILY RF: 0 clopidogrel 75 MG tablet 75 mg PO DAILY RF: 0 pramipexole 0.25 MG tablet 0.25 mg PO BID PRN PRN (Reason: SCIATICA) RF: 0 gabapentin 300 MG capsule 600 mg PO BID RF: 0 aspirin 81 MG tablet 81 mg PO DAILY@0800 RF: 0 fexofenadine 60 MG tablet 60 mg PO DAILY RF: 0 calcium carbonate-vitamin D3 1 EACH tablet 1 tab PO DAILY RF: 0 flaxseed oil 1,000 MG capsule 1,000 mg PO DAILY RF: 0 pantoprazole 40 MG tablet 40 mg PO DAILY RF: 0 nitroglycerin 0.4 MG tablet 0.4 mg SL Q5M RF: 0 sertraline 25 MG tablet 25 mg PO DAILY RF: 0 vitamin B complex 1 EACH tablet 1 tab PO DAILY RF: 0 qsrmcuyv-bnw-SM-lycopen-lutein 1 EACH tablet 1 tab PO DAILY RF: 0 omega-3 fatty acids-fish oil 1 EACH capsule 1 ea PO BID RF: 0 melatonin 10 MG tablet 10 mg PO QHS PRN PRN (Reason: Sleep) RF: 0 sertraline 50 MG tablet 50 mg PO DAILY RF: 0 sucralfate 1 GM tablet 1 gm PO BID RF: 0 turmeric root extract 500 mg Capsule 500 mg PO DAILY RF: 0 magnesium oxide 400 mg magnesium Tablet 400 mg PO DAILY RF: 0 furosemide 40 mg tablet 40 mg PO BID RF: 0 amlodipine 2.5 mg tablet 2.5 mg PO DAILY Qty: 90 RF: 3 apixaban 2.5 mg tablet 2.5 mg PO BID Qty: 180 RF: 3 potassium chloride 20 mEq tablet,ER particles/crystals 20 meq PO BID Qty: 180 RF: 3 Discontinued hydrocodone-acetaminophen 1 EACH tablet 1 tablet PO Q6H PRN PRN (Reason: BACK) RF: 0 Referrals: Gladys Pickett MD [Primary Care Provider] - Within 2 Weeks Disposition Disposition (needs filled in before D/C Order can be placed): Long Term Facility Visit Charges Inpatient E&M: 88745 Disch Hosp
--- NOTE | 2020-08-31 15:19 | PHA.DC.MR ---
Pharmacy Service has performed discharge medication reconciliation for this patient upon transfer to [facility]. Home Medications atorvastatin 40 mg PO DAILY 08/19/19 clopidogrel 75 mg PO DAILY 08/19/19 gabapentin 600 mg PO BID 08/19/19 losartan 50 mg PO BID 08/19/19 pramipexole 0.25 mg PO BID PRN PRN 08/19/19 aspirin 81 mg PO DAILY@0800 tab 08/21/19 trazodone 50 mg tablet 50 mg PO QHS PRN 12/30/19 calcium carbonate-vitamin D3 1 tab PO DAILY 05/05/20 fexofenadine 60 mg PO DAILY 05/05/20 flaxseed oil 1,000 mg PO DAILY 05/05/20 upcimnpy-ofx-YA-lycopen-lutein 1 tab PO DAILY 05/05/20 nitroglycerin 0.4 mg SL Q5M 05/05/20 omega-3 fatty acids-fish oil 1 ea PO BID 05/05/20 *pantoprazole 40 mg PO DAILY 05/05/20 sertraline 25 mg PO DAILY 05/05/20 vitamin B complex 1 tab PO DAILY 05/05/20 melatonin 10 mg PO QHS PRN PRN 05/06/20 amlodipine 2.5 mg tablet 2.5 mg PO DAILY #90 tab 06/01/20 apixaban 2.5 mg tablet 2.5 mg PO BID #180 tab 07/01/20 potassium chloride 20 mEq tablet,extended release(part/cryst) 20 meq PO BID #180 tab 07/01/20 isosorbide mononitrate 60 mg tablet,extended release 24 hr 60 mg PO DAILY 07/08/20 *famotidine 20 mg tablet 20 mg PO BID 08/07/20 levothyroxine 50 mcg tablet 50 mcg PO DAILY 08/07/20 sertraline 50 mg PO DAILY 08/17/20 sucralfate 1 gm PO BID 08/22/20 furosemide 40 mg PO BID 08/26/20 magnesium oxide 400 mg PO DAILY 08/26/20 turmeric root extract 500 mg PO DAILY 08/26/20 docusate sodium [DOK] 100 mg PO BID PRN PRN #1 cap 08/30/20 *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 awaiting callback for clarification. The patient's discharge medication list was reviewed for discrepancies and discrepancies were resolved.
--- NOTE | 2020-08-31 16:52 | NURSING ---
Patient stated her necklace was in the hospital safe put there from the emergency department. Patient did not have a copy of the paperwork. No paperwork in the chart. I explained this to patient and she stated maybe her family took it home. Charge nurse aware and TCU nurse aware. This nurse called carton gluing machine operator to see if envelope was in the safe. No envelope was in the safe. Patient states she will check with family.
== END 2020-08-31 16:51 | disposition skilled nursing facility (03) | DRG 291 ==
LOC: ED 19:14 → PCU 08-27 03:14
PROVIDERS: Nurse Practitioner Family; Admitting Provider Hospitalist; Emergency Provider Emergency Medicine; PCP Internal Medicine; Visit Provider Student in an Organized Health Care Education/Training Program
DX: I11.0 Hypertensive heart disease with heart failure (principal); I50.33 Acute on chronic diastolic (congestive) heart failure; J96.01 Acute respiratory failure with hypoxia; I48.0 Paroxysmal atrial fibrillation; I27.20 Pulmonary hypertension, unspecified; I34.0 Nonrheumatic mitral (valve) insufficiency; E87.6 Hypokalemia; Z20.822 Contact with and (suspected) exposure to COVID-19; I25.10 Atherosclerotic heart disease of native coronary artery without angina pectoris; E78.5 Hyperlipidemia, unspecified; E03.9 Hypothyroidism, unspecified; G89.29 Other chronic pain; R04.0 Epistaxis; K21.9 Gastro-esophageal reflux disease without esophagitis; G47.33 Obstructive sleep apnea (adult) (pediatric); H91.93 Unspecified hearing loss, bilateral; F41.9 Anxiety disorder, unspecified; Z99.81 Dependence on supplemental oxygen; Z79.01 Long term (current) use of anticoagulants; Z79.02 Long term (current) use of antithrombotics/antiplatelets; Z79.82 Long term (current) use of aspirin; Z79.890 Hormone replacement therapy; Z79.899 Other long term (current) drug therapy; I25.2 Old myocardial infarction; Z95.810 Presence of automatic (implantable) cardiac defibrillator; Z95.5 Presence of coronary angioplasty implant and graft
CPT/HCPCS: 36415; 51702; 71045; 80048; 82803; 82962; 83605; 83735; 83880; 84100; 84145; 84484; 85025; 85610; 87040; 87426; 87641; 93005; 97110; 97116; 97162; 97166; 97530; 97535; 99285; J7040; J7050; A4216; J0696; J1940

== ENCOUNTER 2020-08-31 16:45 | Inpatient (IN) | payer MEDICARE, SELFPAY ==
[2019-12-09 08:37] VITALS: BMI 24.3
[2020-08-26 20:48] VITALS: BMI 25.4
[2020-08-31 17:04] VITALS: BP 151/77; PULSE 92; RESP 18; TEMP 36.4; O2SAT 93; BMI 23.4
[2020-08-31 19:30] VITALS: RESP 18
[2020-08-31] MEDS: APIXABAN 2.5 MG TABLET PO (20:06)
[2020-08-31] MEDS: Atorvastatin Calcium 40 MG Tablet PO (20:07)
[2020-08-31] MEDS: Famotidine 20 MG Tablet PO (20:08)
[2020-08-31] MEDS: Sucralfate 1 GM Tablet PO (20:08)
[2020-08-31] MEDS: Furosemide 40 MG Tablet PO (20:09)
[2020-08-31] MEDS: Gabapentin 600 MG Tablet PO (20:09)
[2020-08-31] MEDS: Losartan Potassium 50 MG Tablet PO (20:11)
--- NOTE | 2020-08-31 20:17 | HP.PCM_ITS ---
HPI - General General Date of Admission: 08/31/20 HPI Narrative 08/26/2020 CAMILO SRIVASTAVA, is a 84 Female with below past medical history presented to [facility] Emergency Department with shortness of breath. 08/26/2020 EKG showed ventricular paced rhythm. Cough, chest pain, brown colored sputum. Recent pacemaker/defibrillator insertion at [facility]. Discharged from [facility] 1 day prior. Recent Echo EF 55%. Lasix, Zaroxylyn given for acute diastolic congestive heart failure. Zosyn, Vancomycin IV given for healthcare associated pneumonia. 08/26/2020 Admit to Hospital. Ceftriaxone, Azithromycin given for healthcare associated pneumonia. GLORIA wraps to bilateral lower extremities, Lasix 40MG IV Q8H for acute diastolic congestive heart failure. Replete potassium. 08/27/2020 Shortness of breath improved. Continue antibiotics, but doubt pneumonia. Continue Furosemide for acute on chronic diastolic congestive heart failure. Hold Eliquis for epistaxis. 08/28/2020 Breathing better. Lasix changed to PO. Hold thoracentesis for pleural effusion for now. Patient agreeable to senior care facility. 08/29/2020 Chest X-ray in 1-2 months to follow pleural effusion. 08/31/2020 Admit to TCU with debility, here for rehabilitation, strengthening, prior to discharge home alone. [facility] Medical History (Updated 08/31/20 @ 20:[address] 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 Myocardial infarct NSTEMI (non-ST elevated myocardial infarction) On home oxygen therapy ALVERTO on CPAP Pacemaker Presence of combination internal cardiac defibrillator (ICD) and pacemaker Presence of stent in coronary artery (~08/20/19) Pure hypercholesterolemia Shortness of breath Sleep apnea Weakness Home Medications atorvastatin 40 mg PO DAILY 08/19/19 [History Last Taken 08/25/20] clopidogrel 75 mg PO DAILY 08/19/19 [History Last Taken 08/26/20] gabapentin 600 mg PO BID 08/19/19 [History Last Taken 08/26/20] losartan 50 mg PO BID 08/19/19 [History Last Taken 08/26/20] pramipexole 0.25 mg PO BID PRN PRN 08/19/19 [History Last Taken 08/26/20] trazodone 50 mg tablet 50 mg PO QHS PRN 12/30/19 [History Last Taken 08/25/20] calcium carbonate-vitamin D3 1 tab PO DAILY 05/05/20 [History Last Taken 08/26/20] fexofenadine 60 mg PO DAILY 05/05/20 [History Last Taken 08/26/20] flaxseed oil 1,000 mg PO DAILY 05/05/20 [History Last Taken 08/17/20] rzaqhgrt-bnt-AF-lycopen-lutein 1 tab PO DAILY 05/05/20 [History Last Taken 08/26/20] nitroglycerin 0.4 mg SL Q5M 05/05/20 [History Last Taken Unknown] omega-3 fatty acids-fish oil 1 ea PO BID 05/05/20 [History Last Taken 08/26/20] pantoprazole 40 mg PO DAILY 05/05/20 [History Last Taken 08/26/20] sertraline 25 mg PO DAILY 05/05/20 [History Last Taken 08/26/20] vitamin B complex 1 tab PO DAILY 05/05/20 [History Last Taken 08/26/20] melatonin 10 mg PO QHS PRN PRN 05/06/20 [History Last Taken 08/25/20] amlodipine 2.5 mg tablet 2.5 mg PO DAILY #90 tab 06/01/20 [Rx Last Taken 08/26/20] isosorbide mononitrate 60 mg tablet,extended release 24 hr 60 mg PO DAILY 07/08/20 [History Last Taken 08/26/20] famotidine 20 mg tablet 20 mg PO BID 08/07/20 [History Last Taken 08/26/20] levothyroxine 50 mcg tablet 50 mcg PO DAILY 08/07/20 [History Last Taken 08/26/20] sertraline 50 mg PO DAILY 08/17/20 [History Last Taken 08/26/20] sucralfate 1 gm PO BID 08/22/20 [History Last Taken 08/26/20] furosemide 40 mg PO BID 08/26/20 [History Last Taken 08/26/20] magnesium oxide 400 mg PO DAILY 08/26/20 [History Last Taken 08/26/20] turmeric root extract 500 mg PO DAILY 08/26/20 [History Last Taken 08/26/20] docusate sodium [DOK] 100 mg PO BID PRN PRN #1 cap 08/30/20 [Rx Last Taken Unknown] apixaban 2.5 mg PO BID 08/31/20 [History Last Taken Unknown] aspirin 81 mg PO DAILY@0800 08/31/20 [History Last Taken Unknown] potassium chloride 20 meq PO BID 08/31/20 [History Last Taken Unknown] Allergy/AdvReac Type Severity Reaction Status Date / Time enalaprilat [From Vasotec] Allergy Other Verified 08/22/20 21:45 ezetimibe [From Zetia] AdvReac Upset Verified 08/26/20 15:29 Stomach meperidine [From Demerol] AdvReac Nausea Verified 08/22/20 21:45 mirtazapine [From Remeron] AdvReac Other Verified 08/22/20 21:45 zolpidem [From Ambien] AdvReac Other Verified 08/22/20 21:45 Family History Father Heart disease Brother Diabetes Mother COPD (chronic obstructive pulmonary disease) Grandfather Heart disease Surgical History History of appendectomy History of carpal tunnel surgery History of left breast biopsy History of total hysterectomy Hx of atrioventricular node ablation Presence of coronary angioplasty implant and graft (~08/20/19) S/P PTCA (percutaneous transluminal coronary angioplasty) Social History (Updated 08/31/20 @ 20:[address] Lamonte Jimenez MD) household members: none Smoking Status: Never smoker alcohol intake: never substance use type: does not use caffeine: Yes Type: coffee Number of servings: 1 ROS Constitutional Constitutional: Denies chills, fever(s) or weight gain ENT HEENT: Denies headache(s), nasal congestion or nasal discharge Cardiovascular Cardiovascular: Denies chest pain or palpitations Respiratory/Chest Respiratory/Chest: Denies cough, excessive phlegm production or shortness of breath with exertion Gastrointestinal Gastrointestinal: Denies abdominal pain, nausea or vomiting Genitourinary Genitourinary: Denies dysuria Musculoskeletal Musculoskeletal: Denies joint pain or joint swelling Integumentary Integumentary: Denies rash or wounds Neurologic Neurologic: Denies focal weakness, numbness or tingling Psychiatric Psychiatric: Reports auditory hallucinations; Denies anxiety, depression, homicidal ideation or suicidal ideation Vital Signs Vital Signs Vital Signs: 08/31/20 17:04 Temperature 97.5 F L Temperature Source Temporal Pulse Rate 92 Respiratory Rate 18 Blood Pressure 151/77 H Blood Pressure Mean 101 Blood Pressure Source Monitor Blood Pressure Position Sitting Blood Pressure Location Left Arm Pulse Ox 93 Oxygen Delivery Method Room Air Physical Exam Const alert and oriented x3 General Appearance: cooperative HEENT normocephalic Eyes PERRL and EOMs intact bilaterally Neck supple, no JVD and no carotid bruits Resp normal respiratory effort, normal air movement and clear to auscultation bilaterally Cardio regular rate and regular rhythm GI normal to inspection, nondistended, normoactive bowel sounds, non-tender and non-distended Extremity normal capillary refill General Extremity: Negative for edema Skin no rashes or lesions noted General Skin Exam: no breakdown Psych affect normal Appearance: appropriate Assessment & Plan Assessment/Plan (1) Debility: Status: Chronic Code(s): R53.81 - Other malaise (2) (HFpEF) heart failure with preserved ejection fraction: Status: Acute Code(s): I50.30 - Unspecified diastolic (congestive) heart failure Qualifiers: Heart failure chronicity: acute Qualified Code(s): I50.31 - Acute diastolic (congestive) heart failure (3) HABP (hospital-acquired bacterial pneumonia): Status: Acute Code(s): J15.9 - Unspecified bacterial pneumonia (4) Afib: Status: Chronic Code(s): I48.91 - Unspecified atrial fibrillation Qualifiers: Atrial fibrillation type: unspecified chronic Qualified Code(s): I48.20 - Chronic atrial fibrillation, unspecified (5) Edema: Status: Inactive Code(s): R60.9 - Edema, unspecified (6) Essential hypertension: Status: Chronic Code(s): I10 - Essential (primary) hypertension (7) Hypothyroidism: Status: Chronic Code(s): E03.9 - Hypothyroidism, unspecified Qualifiers: Hypothyroidism type: unspecified Qualified Code(s): E03.9 - Hypothyroidism, unspecified (8) Pure hypercholesterolemia: Status: Chronic Code(s): E78.00 - Pure hypercholesterolemia, unspecified (9) Hypokalemia: Status: Resolved Code(s): E87.6 - Hypokalemia (10) ALVERTO on CPAP: Status: Chronic Code(s): G47.33 - Obstructive sleep apnea (adult) (pediatric); Z99.89 - Dependence on other enabling machines and devices (11) Neuropathic pain: Status: Acute Code(s): M79.2 - Neuralgia and neuritis, unspecified (12) Insomnia: Status: Acute Code(s): G47.00 - Insomnia, unspecified (13) Depression: Status: Acute Code(s): F32.9 - Major depressive disorder, single episode, unspecified (14) Hypomagnesemia: Status: Acute Code(s): E83.42 - Hypomagnesemia Plan: 84 year old female with below past medical history hospitalized for acute respiratory failure secondary to acute on chronic diastolic heart failure, complicated by healthcare associated pneumonia, admitted to tcu with debility, here for rehabilitation, strengthening, prior to discharge home alone. * Debility - PT/OT. * Pain - Tylenol 1000MG Q6H PRN pain (1-10). * Bowel - Miralax 17GM daily, Senna/colace 1 tablet BID, * Adult immunization - Administer Prevnar 13, Pneumovax 23, Fluzone, COVID19 vaccine as appropriate. * DVT prophylaxis - Not necessary, already anticoagulated. * Hypertension - Amlodipine 2.5MG daily. * Atrial Fibrillation, Eliquis 2.5MG twice daily. * Coronary Artery Disease - Losartan 50MG BID, Isosorbide MN 60MG daily, Plavix 75MG daily, Aspirin 81MG DAILY< NTG PRN. * Hyperlipidemia - Atorvastatin 40MG QHS. * Calcium deficiency - Calcium D 1 tablet daily. * GERD - Pantoprazole 40MG daily, Sucralfate 1GM BID, Famotidine 20MG daily. * Chronic diastolic heart failure - Losartan 50MG BID, Isosorbide MN 60MG daily, Lasix 40MG BID. * Neuropathic pain - Gabapentin 600MG BID. * Hypothyroidism - Levothyroxine 50MCG daily. * Allergic Rhinitis - Loratadine 10MG daily. 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 * Nutrition - MVI daily. * Hypokalemia - KCL 20MEQ BID. * Restless Leg syndrome - Pramexipole 0.25MG BID PRN. 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
[2020-08-31] MEDS: Acetaminophen 500 MG Tablet 1000 MG PO (22:17)
[2020-08-31] MEDS: traZODone 50 MG Tablet PO (22:17)
[2020-08-31] MEDS: MELATONIN 10 MG TABLET PO (22:17)
[2020-09-01 05:25] VITALS: BP 120/73; PULSE 92; RESP 16; TEMP 36.6; O2SAT 96
[2020-09-01] MEDS: APIXABAN 2.5 MG TABLET PO ×2 (05:32→17:55)
[2020-09-01] MEDS: Losartan Potassium 50 MG Tablet PO ×2 (05:32→17:54)
[2020-09-01] MEDS: Loratadine 10 MG Tablet PO (05:32)
[2020-09-01] MEDS: Furosemide 40 MG Tablet PO ×2 (05:33→17:55)
[2020-09-01] MEDS: Isosorbide Mononitrate 60 MG Tablet PO (05:33)
[2020-09-01] MEDS: amLODIPine 2.5 MG Tablet PO (05:34)
[2020-09-01] MEDS: Gabapentin 600 MG Tablet PO ×2 (05:34→17:55)
[2020-09-01] MEDS: Famotidine 20 MG Tablet PO (05:34)
[2020-09-01] MEDS: Levothyroxine 50 MCG Tablet PO (05:35)
[2020-09-01] MEDS: Pantoprazole Sodium 40 MG Tablet PO (05:35)
[2020-09-01] MEDS: Sucralfate 1 GM Tablet PO ×2 (05:35→15:59)
[2020-09-01] MEDS: Clopidogrel Bisulfate 75 MG Tablet PO (05:35)
[2020-09-01] MEDS: Sertraline 50 MG Tablet 75 MG PO (05:36)
[2020-09-01] MEDS: Senna/Docusate Sodium 1 Tablet PO ×2 (05:37→17:55)
[2020-09-01 05:55] LABS: Absolute Lymphocyte Count 1.49 X10^3/uL (0.83-4.51); Absolute Neutrophil Count 4.1 X10^3/uL (2.0-7.7); Basophil# 0.02 X10^3/uL; Basophil% 0.3 % (0-1); Eosinophil# 0.23 X10^3/uL; Eosinophils% 3.7 % (0-5); Hematocrit 40.4 % (37-47); Hemoglobin 12.8 g/dL (12.0-15.0); Lymphocyte # 1.49 X10^3/ul (0.83-4.51); Lymphocyte % 23.7 % (19-41); Mean Corp Hgb Conc 31.7 g/dL (32-36); Mean Corpuscular Hgb 29.9 pg (27.0-32.0); Mean Corpuscular Volume 94.4 fL (81-99); Monocyte# 0.44 X10^3/uL; NRBC Flagged by Analyzer 0 % (0-5); Neutrophil # 4.09 X10^3/uL (2.7-7.7); Neutrophil % 64.8 % (47-70); Platelet Count 216 K/mm3 (150-450); RBC Distribution Width SD 56.1 fl (35.1-43.9); Red Blood Count 4.28 M/mm3 (4.2-5.4); White Blood Count 6.3 K/mm3 (4.4-11.0)
[2020-09-01 06:25] LABS: Anion Gap 6 (5-15); BUN 15 mg/dL (7-18); BUN/Creat Ratio 17.4 RATIO (10-20); Calcium,Total 8.8 mg/dL (8.5-10.1); Chloride 104 mmol/L (98-107); Creatinine, Serum 0.86 mg/dL (0.55-1.02); EST Glomerular Filtration Rate 67 mL/min (>60); Est Glom Filt Rate - Afr Amer 81 mL/min (>60); Glucose 84 mg/dL (74-106); Potassium 3.8 mmol/L (3.5-5.1); Sodium Level 138 mmol/L (136-145)
[2020-09-01 08:39] VITALS: O2SAT 97
[2020-09-01] MEDS: Potassium Chloride Oral Tablet 20 MEQ PO ×2 (08:49→17:54)
[2020-09-01] MEDS: Multivitamins,Ther W-Minerals Tablet 1 TABLET PO (08:49)
[2020-09-01] MEDS: Aspirin E.C. 81 MG Tablet PO (08:49)
[2020-09-01] MEDS: Calcium Carb/Vitamin D 1 TABLET Tablet PO (08:49)
[2020-09-01] MEDS: Tuberculin,Purif.prot.deriv. 50 TU/ML Vial 5 ML ID (09:26)
[2020-09-01 10:00] VITALS: PULSE 88; RESP 18; O2SAT 95
--- NOTE | 2020-09-01 10:07 | CASEMGMT ---
Social Work Note VANESSA Moody completed Palliative medicine screening tool. Patient was referred due to severe CHF with symptoms. Referral made to [facility] for evaluation of appropriateness to receive palliative services. Lilli HUGHES
[2020-09-01 13:03] VITALS: BP 132/67; PULSE 90; RESP 18; TEMP 36.2; O2SAT 98
--- NOTE | 2020-09-01 14:03 | CASEMGMT ---
Social Work Met with patient for initial assessment. Discussed code status. Pt wishes to be DNR-CCA, no intubation. MOLST form reviewed, communication to , placed on chart. Nursing notified. requested Palliative consult. Referral made to [facility] Emergency Department Palliative and screening tool faxed. Explained MMO Medicare insurance with NRD 09/07 and continued stay is not guaranteed. The goal is for pt to return home alone. SW to continue to follow. Erika Noble, GARMENT EXAMINER OIL DISTRIBUTOR
--- NOTE | 2020-09-01 14:35 | PCM.PN.RX ---
Progress Note - Pharmacy Subjective: TCU Admission Objective: Allergies enalaprilat [From Vasotec] Allergy (Verified 08/22/20 21:45) Other cough ezetimibe [From Zetia] Adverse Reaction (Verified 08/26/20 15:29) Upset Stomach gi upset meperidine [From Demerol] Adverse Reaction (Verified 08/22/20 21:45) Nausea mirtazapine [From Remeron] Adverse Reaction (Verified 08/22/20 21:45) Other intolerance zolpidem [From Ambien] Adverse Reaction (Verified 08/22/20 21:45) Other sleep walking issues Current Medications Generic Name Dose Route Start Last Admin Trade Name Freq PRN Reason Stop Dose Admin Acetaminophen 1,000 mg 08/31/20 20:30 08/31/20 22:17 Acetaminophen 500 Mg Tablet PO 1,000 mg Q6H PRN PRN Administration Pain Score 1-10 Amlodipine Besylate 2.5 mg 09/01/20 06:00 09/01/20 05:34 Amlodipine 2.5 Mg Tablet PO 2.5 mg DAILY ROBERT Administration Apixaban 2.5 mg 09/01/20 06:00 09/01/20 05:32 Apixaban 2.5 Mg Tablet PO 2.5 mg BID ROBERT Administration Aspirin 81 mg 09/01/20 08:00 09/01/20 08:49 Aspirin E.C. 81 Mg Tablet PO 81 mg DAILY@0800 ROBERT Administration Atorvastatin Calcium 40 mg 09/01/20 22:00 Atorvastatin Calcium 40 Mg Tablet PO DAILY@2200 ROBERT Calcium/Vitamin D 1 tablet 09/01/20 08:00 09/01/20 08:49 Calcium Carb/Vitamin D 1 Tablet Tablet PO 1 tablet DAILYCM ROBERT Administration Clopidogrel Bisulfate 75 mg 09/01/20 06:00 09/01/20 05:35 Clopidogrel Bisulfate 75 Mg Tablet PO 75 mg DAILY ROBERT Administration Famotidine 20 mg 09/02/20 06:00 Famotidine 20 Mg Tablet PO DAILY ROBERT Furosemide 40 mg 09/01/20 06:00 09/01/20 05:33 Furosemide 40 Mg Tablet PO 40 mg BID ROBERT Administration Gabapentin 600 mg 09/01/20 06:00 09/01/20 05:34 Gabapentin 600 Mg Tablet PO 600 mg BID ROBERT Administration Isosorbide Mononitrate 60 mg 09/01/20 06:00 09/01/20 05:33 Isosorbide Mononitrate 60 Mg Tablet PO 60 mg DAILY ROBERT Administration Levothyroxine Sodium 50 mcg 09/01/20 06:00 09/01/20 05:35 Levothyroxine 50 Mcg Tablet PO 50 mcg DAILY ROBERT Administration Loratadine 10 mg 09/01/20 06:00 09/01/20 05:32 Loratadine 10 Mg Tablet PO 10 mg DAILY ROBERT Administration Losartan Potassium 50 mg 09/01/20 06:00 09/01/20 05:32 Losartan Potassium 50 Mg Tablet PO 50 mg BID ROBERT Administration Melatonin 10 mg 08/31/20 18:45 08/31/20 22:17 Melatonin 10 Mg Tablet PO 10 mg QHS PRN PRN Administration SLEEP Multivitamins/Minerals 1 tablet 09/01/20 08:00 09/01/20 08:49 Multivitamins,Ther W-Minerals Tablet PO 1 tablet DAILYCM ROBERT Administration Nitroglycerin 0.4 mg 08/31/20 18:30 Nitroglycerin Sl (Ed/Img/Cath) 0.4 Mg Tablet SL Q5M PRN Angina Pantoprazole Sodium 40 mg 09/01/20 06:00 09/01/20 05:35 Pantoprazole Sodium 40 Mg Tablet PO 40 mg DAILY ROBERT Administration Polyethylene Glycol 17 gm 09/01/20 06:00 09/01/20 05:34 Polyethylene Glycol 3350 17 Gm Packet PO Not Given DAILY [facility] Potassium Chloride 20 meq 09/01/20 08:00 09/01/20 08:49 Potassium Chloride Oral Tablet 20 Meq PO 20 meq BIDCM ROBERT Administration Pramipexole Dihydrochloride 0.25 mg 08/31/20 18:25 Pramipexole Di-Hcl 0.25 Mg Tablet PO BID PRN PRN SCIATICA Senna/Docusate Sodium 1 tablet 09/01/20 06:00 09/01/20 05:37 Senna/Docusate Sodium 1 Tablet PO 1 tablet BID ROBERT Administration Sertraline HCl 75 mg 09/01/20 06:00 09/01/20 05:36 Sertraline 50 Mg Tablet PO 75 mg DAILY ROBERT Administration Sucralfate 1 gm 09/01/20 07:30 09/01/20 05:35 Sucralfate 1 Gm Tablet PO 1 gm BIDAC ROBERT Administration Trazodone HCl 50 mg 08/31/20 22:00 08/31/20 22:17 Trazodone 50 Mg Tablet PO 50 mg QHS ROBERT Administration Tuberculin PPD 5 tu 09/08/20 10:00 Tuberculin,Purif.Prot.Deriv. 50 Tu/Ml Vial ID 09/08/20 10:01 X1 ONE Problem List (Last Updated 08/31/20 @ 20:[address] Lamonte Jimenez MD) Hypomagnesemia (Acute) Depression (Acute) Insomnia (Acute) Neuropathic pain (Acute) Debility (Chronic) Afib (Chronic) (HFpEF) heart failure with preserved ejection fraction (Acute) HABP (hospital-acquired bacterial pneumonia) (Acute) Hypothyroidism (Chronic) Pure hypercholesterolemia (Chronic) ALVERTO on CPAP (Chronic) Essential hypertension (Chronic) Vital Signs Temp Pulse Resp BP Pulse Ox 97.2 F L 90 18 132/67 H 98 09/01/20 13:03 09/01/20 13:03 09/01/20 13:03 09/01/20 13:03 09/01/20 13:03 Oxygen Delivery Method Room Air Weight: 60.056 kg Body Mass Index (BMI) 23.4 Finger Stick Blood Glucose 182 Sodium 138 mmol/L (136-145) 09/01/20 05:20 Potassium 3.8 mmol/L (3.5-5.1) 09/01/20 05:20 Chloride 104 mmol/L (98-107) 09/01/20 05:20 Carbon Dioxide 28.0 mmol/L (21.0-32.0) 09/01/20 05:20 Anion Gap 6 (5-15) 09/01/20 05:20 BUN 15 mg/dL (7-18) 09/01/20 05:20 Creatinine 0.86 mg/dL (0.55-1.02) 09/01/20 05:20 Est GFR (MDRD) Af Amer 81 mL/min (>60) 09/01/20 05:20 Est GFR (MDRD) Non-Af 67 mL/min (>60) 09/01/20 05:20 BUN/Creatinine Ratio 17.4 RATIO (10-20) 09/01/20 05:20 Glucose 84 mg/dL (74-106) 09/01/20 05:20 Assessment/Plan: 1. Pain: acetaminophen 1000mg PO Q6H PRN pain (1-10). Please continue to monitor for pain and PRN usage. 2. Hypertension, Chronic diastolic heart failure: amlodipine 2.5MG PO daily, losartan 50MG PO BID,?isosorbide mononitrate 60MG PO daily, furosemide 40MG PO BID, clopidogrel 75MG PO daily, aspirin 81MG PO daily, nitroglycerin 0.4MG sublingual Q5min PRN. Please continue to monitor platelets (last 216,000), S/S of bleeding, edema, chest pain, potassium (last 3.8mmol/L),?BP (last 132/67). 3. Atrial Fibrillation: apixaban 2.5MG PO BID. Please continue to monitor platelets (last 216,000), HR (last 92), S/S of bleeding, and renal function. 4. Hyperlipidemia: atorvastatin 40MG PO QHS. Please continue to monitor for muscle pain, and lipid panel (last 07/01/20) as clinically appropriate. 5. GERD: pantoprazole 40MG PO daily, sucralfate 1GM PO BID, famotidine 20MG PO daily. Please continue to monitor S/S of GERD and diarrhea.? 6. Neuropathic pain: gabapentin 600MG PO BID. please continue to monitor neuropathic pain and renal function. 7. Hypothyroidism: levothyroxine 50MCG PO daily. Please continue to monitor TSH (last 08/18/20) and S/S of hypothyroidism. 8. Hypokalemia:? KCL 20MEQ PO BID with meals. Please continue to monitor potassium (last 3.8mmol/L) 9. Restless Leg syndrome: pramipexole 0.25MG PO BID PRN sciatica. Please continue to monitor S/S of restless leg syndrome and renal function.? 10. Allergic Rhinitis: loratadine 10MG PO daily. Please continue to monitor for S/S of allergies. 11. Calcium deficiency/nutrition: calcium/vitamin D 1 tablet PO daily with meals and multivitamin with minerals 1T PO DAILYCM. Please continue to monitor calcium levels (last 8.8 mg/dL). Psychotropic Medications: 1. Depression: sertraline 75MG PO daily. Please see physician note regarding GDR. Please continue to monitor for S/S of depression and GI symptoms. 2. Insomnia: trazodone 50MG PO QHS and melatonin 10MG QHS PO PRN sleep. Please see physician note regarding GDR. Please continue to monitor insomnia and PRN usage. Unnecessary Medications: None Bowel Regimen: Miralax 17gm PO daily and senna/docusate 1T PO BID. Please continue to monitor for constipation and PRN usage. Date of Note:: 09/01/20
[2020-09-01 19:07] VITALS: RESP 16; O2SAT 98
[2020-09-01] MEDS: Atorvastatin Calcium 40 MG Tablet PO (21:11)
[2020-09-01] MEDS: MELATONIN 10 MG TABLET PO (21:11)
[2020-09-01] MEDS: traZODone 50 MG Tablet PO (21:11)
[2020-09-01] MEDS: Acetaminophen 500 MG Tablet 1000 MG PO (21:11)
[2020-09-02 05:00] VITALS: BP 140/88; PULSE 90; RESP 16; TEMP 36.2; O2SAT 96
[2020-09-02] MEDS: Clopidogrel Bisulfate 75 MG Tablet PO (05:48)
[2020-09-02] MEDS: Sertraline 50 MG Tablet 75 MG PO (05:48)
[2020-09-02] MEDS: Levothyroxine 50 MCG Tablet PO (05:48)
[2020-09-02] MEDS: amLODIPine 2.5 MG Tablet PO (05:48)
[2020-09-02] MEDS: Senna/Docusate Sodium 1 Tablet PO ×2 (05:48→17:28)
[2020-09-02] MEDS: Pantoprazole Sodium 40 MG Tablet PO (05:48)
[2020-09-02] MEDS: Famotidine 20 MG Tablet PO (05:48)
[2020-09-02] MEDS: Isosorbide Mononitrate 60 MG Tablet PO (05:48)
[2020-09-02] MEDS: Loratadine 10 MG Tablet PO (05:49)
[2020-09-02] MEDS: Furosemide 40 MG Tablet PO ×2 (05:51→17:28)
[2020-09-02] MEDS: Losartan Potassium 50 MG Tablet PO ×2 (05:51→17:28)
[2020-09-02] MEDS: Gabapentin 600 MG Tablet PO ×2 (06:26→17:28)
[2020-09-02] MEDS: APIXABAN 2.5 MG TABLET PO ×2 (06:26→17:28)
[2020-09-02] MEDS: Potassium Chloride Oral Tablet 20 MEQ PO ×2 (08:19→17:28)
[2020-09-02] MEDS: Calcium Carb/Vitamin D 1 TABLET Tablet PO (08:19)
[2020-09-02] MEDS: Multivitamins,Ther W-Minerals Tablet 1 TABLET PO (08:19)
[2020-09-02] MEDS: Aspirin E.C. 81 MG Tablet PO (08:19)
[2020-09-02 11:56] VITALS: PULSE 90; RESP 18; O2SAT 99
[2020-09-02 13:15] VITALS: BP 101/56; PULSE 91; RESP 18; TEMP 36.1; O2SAT 96
--- NOTE | 2020-09-02 16:26 | CHAPLAIN ---
Type of Pastoral Visit _x__ Initial Visit ___ Follow-up Visit ___ On-call Visit ___ General Patient Visit ___ Spiritual Assessment ___ Family Conference ___ Bereavement ___ Rapid Response ___ Code Blue ___ Other (describe below) Pastoral Care Referral From _x__ Patient ___ Family ___ Nurse ___ Physician ___ Program Management Manager ___ District Sales Leader ___ Other (describe below) Sacrament/Intervention _x__ Active listening ___ Anointing ___ Cheondoism ___ Bereavement ___ Communion _x__ Lola exploration ___ ___ Life review _x__ Prayer ___ Reconciliation ___ Sacrament of Sick _x__ Supportive presence ___ Wedding ___ Other (describe below) Pastoral Comments patient has been seen in previous admissions to hospital; pt expresses some discouragement over multiple health issues and hospital stays in recent months; pt expresses that she doesn't want to have to keep doing this and that I have accepted [facility] and I know where I am going; prayer and presence welcomed
[2020-09-02] MEDS: Sucralfate 1 GM Tablet PO (17:28)
[2020-09-02] MEDS: Atorvastatin Calcium 40 MG Tablet PO (22:00)
[2020-09-02] MEDS: Acetaminophen 500 MG Tablet 1000 MG PO (22:00)
[2020-09-02] MEDS: traZODone 50 MG Tablet PO (22:00)
[2020-09-03 06:28] VITALS: BP 142/92; PULSE 83; RESP 14; TEMP 36.9; O2SAT 97
[2020-09-03] MEDS: APIXABAN 2.5 MG TABLET PO ×2 (06:29→18:05)
[2020-09-03] MEDS: Pantoprazole Sodium 40 MG Tablet PO (06:30)
[2020-09-03] MEDS: Sertraline 50 MG Tablet 75 MG PO (06:30)
[2020-09-03] MEDS: Losartan Potassium 50 MG Tablet PO ×2 (06:30→18:04)
[2020-09-03] MEDS: amLODIPine 2.5 MG Tablet PO (06:30)
[2020-09-03] MEDS: Loratadine 10 MG Tablet PO (06:30)
[2020-09-03] MEDS: Famotidine 20 MG Tablet PO (06:30)
[2020-09-03] MEDS: Furosemide 40 MG Tablet PO ×2 (06:30→18:04)
[2020-09-03] MEDS: Gabapentin 600 MG Tablet PO ×2 (06:30→18:05)
[2020-09-03] MEDS: Clopidogrel Bisulfate 75 MG Tablet PO (06:30)
[2020-09-03] MEDS: Levothyroxine 50 MCG Tablet PO (06:30)
[2020-09-03] MEDS: Isosorbide Mononitrate 60 MG Tablet PO (06:30)
[2020-09-03] MEDS: Senna/Docusate Sodium 1 Tablet PO (06:30)
--- NOTE | 2020-09-03 08:22 | PCA ---
Pt wanted to wear the same outfit i witnessed her have on the following day, encouraged pt to change clothing. pt stated that she doesn't do anything to get dirty and those clothes were fine to wear again.
[2020-09-03] MEDS: Aspirin E.C. 81 MG Tablet PO (08:27)
[2020-09-03] MEDS: Sucralfate 1 GM Tablet PO ×2 (08:27→16:18)
[2020-09-03] MEDS: Potassium Chloride Oral Tablet 20 MEQ PO ×2 (08:27→16:18)
[2020-09-03] MEDS: Calcium Carb/Vitamin D 1 TABLET Tablet PO (08:27)
[2020-09-03] MEDS: Multivitamins,Ther W-Minerals Tablet 1 TABLET PO (08:27)
[2020-09-03 14:01] VITALS: BP 128/52; PULSE 89; RESP 18; TEMP 36.3; O2SAT 97
[2020-09-03 22:00] VITALS: PULSE 93; O2SAT 97
[2020-09-03] MEDS: Atorvastatin Calcium 40 MG Tablet PO (22:02)
[2020-09-03] MEDS: traZODone 50 MG Tablet PO (22:02)
[2020-09-03] MEDS: Acetaminophen 500 MG Tablet 1000 MG PO (22:04)
[2020-09-03] MEDS: MELATONIN 10 MG TABLET PO (22:13)
[2020-09-04 05:00] VITALS: BP 120/79; PULSE 90; RESP 18; TEMP 36.6; O2SAT 96
[2020-09-04] MEDS: Pantoprazole Sodium 40 MG Tablet PO (06:10)
[2020-09-04] MEDS: Famotidine 20 MG Tablet PO (06:10)
[2020-09-04] MEDS: Gabapentin 600 MG Tablet PO ×2 (06:10→19:25)
[2020-09-04] MEDS: Clopidogrel Bisulfate 75 MG Tablet PO (06:10)
[2020-09-04] MEDS: Furosemide 40 MG Tablet PO ×2 (06:10→18:29)
[2020-09-04] MEDS: APIXABAN 2.5 MG TABLET PO ×2 (06:10→18:24)
[2020-09-04] MEDS: Isosorbide Mononitrate 60 MG Tablet PO (06:10)
[2020-09-04] MEDS: Sertraline 50 MG Tablet 75 MG PO (06:10)
[2020-09-04] MEDS: Levothyroxine 50 MCG Tablet PO (06:10)
[2020-09-04] MEDS: Loratadine 10 MG Tablet PO (06:10)
[2020-09-04] MEDS: Losartan Potassium 50 MG Tablet PO ×2 (06:10→18:29)
[2020-09-04] MEDS: amLODIPine 2.5 MG Tablet PO (06:11)
[2020-09-04] MEDS: Calcium Carb/Vitamin D 1 TABLET Tablet PO (08:54)
[2020-09-04] MEDS: Aspirin E.C. 81 MG Tablet PO (08:54)
[2020-09-04] MEDS: Sucralfate 1 GM Tablet PO ×2 (08:54→18:29)
[2020-09-04] MEDS: Potassium Chloride Oral Tablet 20 MEQ PO ×2 (08:54→18:23)
[2020-09-04] MEDS: Multivitamins,Ther W-Minerals Tablet 1 TABLET PO (08:54)
[2020-09-04 15:34] VITALS: BP 139/79; PULSE 90; RESP 17; TEMP 36.5; O2SAT 96
[2020-09-04] MEDS: Senna/Docusate Sodium 1 Tablet PO (18:29)
[2020-09-04] MEDS: Acetaminophen 500 MG Tablet 1000 MG PO (21:25)
[2020-09-04] MEDS: Atorvastatin Calcium 40 MG Tablet PO (21:29)
[2020-09-04] MEDS: traZODone 50 MG Tablet PO (21:29)
[2020-09-04] MEDS: MELATONIN 10 MG TABLET PO (23:10)
[2020-09-05 04:39] VITALS: BP 119/68; PULSE 91; RESP 16; TEMP 36.9; O2SAT 94
[2020-09-05] MEDS: Famotidine 20 MG Tablet PO (04:41)
[2020-09-05] MEDS: Polyethylene Glycol 3350 17 GM PACKET PO (04:41)
[2020-09-05] MEDS: Senna/Docusate Sodium 1 Tablet PO ×2 (04:41→17:37)
[2020-09-05] MEDS: Sertraline 50 MG Tablet 75 MG PO (04:41)
[2020-09-05] MEDS: Gabapentin 600 MG Tablet PO ×2 (04:41→17:37)
[2020-09-05] MEDS: Furosemide 40 MG Tablet PO ×2 (04:42→17:37)
[2020-09-05] MEDS: Isosorbide Mononitrate 60 MG Tablet PO (04:42)
[2020-09-05] MEDS: Clopidogrel Bisulfate 75 MG Tablet PO (04:42)
[2020-09-05] MEDS: amLODIPine 2.5 MG Tablet PO (04:42)
[2020-09-05] MEDS: Losartan Potassium 50 MG Tablet PO ×2 (04:42→17:37)
[2020-09-05] MEDS: APIXABAN 2.5 MG TABLET PO ×2 (04:42→17:37)
[2020-09-05] MEDS: Loratadine 10 MG Tablet PO (04:42)
[2020-09-05] MEDS: Pantoprazole Sodium 40 MG Tablet PO (04:42)
[2020-09-05] MEDS: Levothyroxine 50 MCG Tablet PO (04:43)
[2020-09-05] MEDS: Aspirin E.C. 81 MG Tablet PO (07:43)
[2020-09-05] MEDS: Sucralfate 1 GM Tablet PO ×2 (07:43→17:37)
[2020-09-05] MEDS: Multivitamins,Ther W-Minerals Tablet 1 TABLET PO (07:44)
[2020-09-05] MEDS: Potassium Chloride Oral Tablet 20 MEQ PO ×2 (07:44→17:37)
[2020-09-05] MEDS: Calcium Carb/Vitamin D 1 TABLET Tablet PO (07:44)
[2020-09-05 13:35] VITALS: BP 127/65; PULSE 90; RESP 16; TEMP 36.3; O2SAT 97
[2020-09-05] MEDS: traZODone 50 MG Tablet PO (21:52)
[2020-09-05] MEDS: Atorvastatin Calcium 40 MG Tablet PO (21:55)
[2020-09-05] MEDS: Acetaminophen 500 MG Tablet 1000 MG PO (21:58)
[2020-09-05] MEDS: MELATONIN 10 MG TABLET PO (22:01)
[2020-09-06 05:00] VITALS: BP 117/70; PULSE 90; RESP 20; TEMP 36.2; O2SAT 98
[2020-09-06] MEDS: Loratadine 10 MG Tablet PO (05:28)
[2020-09-06] MEDS: Clopidogrel Bisulfate 75 MG Tablet PO (05:28)
[2020-09-06] MEDS: Famotidine 20 MG Tablet PO (05:28)
[2020-09-06] MEDS: Polyethylene Glycol 3350 17 GM PACKET PO (05:28)
[2020-09-06] MEDS: Pantoprazole Sodium 40 MG Tablet PO (05:28)
[2020-09-06] MEDS: Isosorbide Mononitrate 60 MG Tablet PO (05:28)
[2020-09-06] MEDS: Senna/Docusate Sodium 1 Tablet PO ×2 (05:28→16:39)
[2020-09-06] MEDS: Gabapentin 600 MG Tablet PO ×2 (05:28→16:39)
[2020-09-06] MEDS: APIXABAN 2.5 MG TABLET PO ×2 (05:28→16:39)
[2020-09-06] MEDS: amLODIPine 2.5 MG Tablet PO (05:28)
[2020-09-06] MEDS: Sertraline 50 MG Tablet 75 MG PO (05:28)
[2020-09-06] MEDS: Furosemide 40 MG Tablet PO ×2 (05:28→16:39)
[2020-09-06] MEDS: Levothyroxine 50 MCG Tablet PO (05:30)
[2020-09-06] MEDS: Losartan Potassium 50 MG Tablet PO ×2 (05:34→16:40)
[2020-09-06] MEDS: Potassium Chloride Oral Tablet 20 MEQ PO ×2 (07:53→16:40)
[2020-09-06] MEDS: Sucralfate 1 GM Tablet PO ×2 (07:53→16:40)
[2020-09-06] MEDS: Aspirin E.C. 81 MG Tablet PO (07:53)
[2020-09-06] MEDS: Multivitamins,Ther W-Minerals Tablet 1 TABLET PO (07:53)
[2020-09-06] MEDS: Calcium Carb/Vitamin D 1 TABLET Tablet PO (07:54)
[2020-09-06 10:14] VITALS: PULSE 82; RESP 16; O2SAT 95
[2020-09-06 14:49] VITALS: BP 113/76; PULSE 91; RESP 18; TEMP 36.8; O2SAT 96
[2020-09-06] MEDS: traZODone 50 MG Tablet PO (21:23)
[2020-09-06] MEDS: MELATONIN 10 MG TABLET PO (21:23)
[2020-09-06] MEDS: Acetaminophen 500 MG Tablet 1000 MG PO (21:23)
[2020-09-06] MEDS: Atorvastatin Calcium 40 MG Tablet PO (21:23)
[2020-09-07 06:42] VITALS: BP 130/82; PULSE 91; RESP 14; TEMP 37.1; O2SAT 95
[2020-09-07] MEDS: Senna/Docusate Sodium 1 Tablet PO ×2 (06:52→17:11)
[2020-09-07] MEDS: Polyethylene Glycol 3350 17 GM PACKET PO (06:52)
[2020-09-07] MEDS: Sertraline 50 MG Tablet 75 MG PO (06:52)
[2020-09-07] MEDS: APIXABAN 2.5 MG TABLET PO ×2 (06:53→17:08)
[2020-09-07] MEDS: amLODIPine 2.5 MG Tablet PO (06:56)
[2020-09-07] MEDS: Furosemide 40 MG Tablet PO ×2 (06:56→17:11)
[2020-09-07] MEDS: Gabapentin 600 MG Tablet PO ×2 (06:56→17:11)
[2020-09-07] MEDS: Loratadine 10 MG Tablet PO (06:56)
[2020-09-07] MEDS: Isosorbide Mononitrate 60 MG Tablet PO (06:56)
[2020-09-07] MEDS: Pantoprazole Sodium 40 MG Tablet PO (06:56)
[2020-09-07] MEDS: Famotidine 20 MG Tablet PO (06:56)
[2020-09-07] MEDS: Clopidogrel Bisulfate 75 MG Tablet PO (06:56)
[2020-09-07] MEDS: Losartan Potassium 50 MG Tablet PO ×2 (06:57→17:10)
[2020-09-07] MEDS: Levothyroxine 50 MCG Tablet PO (06:57)
[2020-09-07] MEDS: Sucralfate 1 GM Tablet PO ×2 (06:58→17:09)
[2020-09-07] MEDS: Menthol/Lanolin/Calamine/Znox 113 GM Tube 1 APPLIC TOPICAL ×2 (07:00→17:09)
[2020-09-07] MEDS: Potassium Chloride Oral Tablet 20 MEQ PO ×2 (08:29→17:09)
[2020-09-07] MEDS: Multivitamins,Ther W-Minerals Tablet 1 TABLET PO (08:29)
[2020-09-07] MEDS: Aspirin E.C. 81 MG Tablet PO (08:29)
[2020-09-07] MEDS: Calcium Carb/Vitamin D 1 TABLET Tablet PO (08:29)
[2020-09-07 13:53] VITALS: BP 109/68; PULSE 83; RESP 18; TEMP 36; O2SAT 95
[2020-09-07 21:37] VITALS: PULSE 91; RESP 16; O2SAT 98
[2020-09-07] MEDS: Acetaminophen 500 MG Tablet 1000 MG PO (21:42)
[2020-09-07] MEDS: traZODone 50 MG Tablet PO (21:42)
[2020-09-07] MEDS: Atorvastatin Calcium 40 MG Tablet PO (21:42)
[2020-09-07] MEDS: MELATONIN 10 MG TABLET PO (21:43)
[2020-09-08 05:00] VITALS: BP 138/86; PULSE 90; RESP 17; TEMP 35.9; O2SAT 97
[2020-09-08 06:00] LABS: Absolute Lymphocyte Count 1.99 X10^3/uL (0.83-4.51); Absolute Neutrophil Count 3.2 X10^3/uL (2.0-7.7); Basophil# 0.02 X10^3/uL; Basophil% 0.3 % (0-1); Eosinophil# 0.27 X10^3/uL; Eosinophils% 4.5 % (0-5); Hematocrit 43.4 % (37-47); Hemoglobin 13.6 g/dL (12.0-15.0); Lymphocyte # 1.99 X10^3/ul (0.83-4.51); Lymphocyte % 33.2 % (19-41); Mean Corp Hgb Conc 31.3 g/dL (32-36); Mean Corpuscular Hgb 29.1 pg (27.0-32.0); Mean Corpuscular Volume 92.9 fL (81-99); Mean Platelet Vol. 9.2 fl (6.2-12.0); Monocyte% 8.3 % (0-10); NRBC Flagged by Analyzer 0 % (0-5); Neutrophil # 3.16 X10^3/uL (2.7-7.7); Neutrophil % 52.9 % (47-70); Platelet Count 261 K/mm3 (150-450); RBC Distribution Width CV 15.8 % (11.6-14.6); RBC Distribution Width SD 54.1 fl (35.1-43.9); Red Blood Count 4.67 M/mm3 (4.2-5.4)
[2020-09-08] MEDS: Sertraline 50 MG Tablet 75 MG PO (06:22)
[2020-09-08] MEDS: Levothyroxine 50 MCG Tablet PO (06:22)
[2020-09-08] MEDS: Senna/Docusate Sodium 1 Tablet PO ×2 (06:22→17:40)
[2020-09-08] MEDS: Pantoprazole Sodium 40 MG Tablet PO (06:22)
[2020-09-08] MEDS: APIXABAN 2.5 MG TABLET PO ×2 (06:22→17:40)
[2020-09-08] MEDS: Gabapentin 600 MG Tablet PO ×2 (06:22→17:40)
[2020-09-08] MEDS: Famotidine 20 MG Tablet PO (06:22)
[2020-09-08] MEDS: Clopidogrel Bisulfate 75 MG Tablet PO (06:22)
[2020-09-08] MEDS: amLODIPine 2.5 MG Tablet PO (06:22)
[2020-09-08] MEDS: Isosorbide Mononitrate 60 MG Tablet PO (06:23)
[2020-09-08] MEDS: Furosemide 40 MG Tablet PO ×2 (06:23→17:40)
[2020-09-08] MEDS: Losartan Potassium 50 MG Tablet PO ×2 (06:23→17:40)
[2020-09-08] MEDS: Loratadine 10 MG Tablet PO (06:23)
[2020-09-08] MEDS: Menthol/Lanolin/Calamine/Znox 113 GM Tube 1 APPLIC TOPICAL ×2 (06:25→17:41)
[2020-09-08 06:28] LABS: Anion Gap 3 (5-15); BUN 21 mg/dL (7-18); BUN/Creat Ratio 20.8 RATIO (10-20); Calcium,Total 9.2 mg/dL (8.5-10.1); Chloride 103 mmol/L (98-107); Creatinine, Serum 1.01 mg/dL (0.55-1.02); EST Glomerular Filtration Rate 56 mL/min (>60); Est Glom Filt Rate - Afr Amer 67 mL/min (>60); Estimated Creatinine Clearance 34.91 ml/min; Glucose 84 mg/dL (74-106); Potassium 3.9 mmol/L (3.5-5.1); Sodium Level 136 mmol/L (136-145)
[2020-09-08] MEDS: Sucralfate 1 GM Tablet PO ×2 (07:48→17:40)
[2020-09-08] MEDS: Potassium Chloride Oral Tablet 20 MEQ PO ×2 (07:48→17:40)
[2020-09-08] MEDS: Aspirin E.C. 81 MG Tablet PO (07:48)
[2020-09-08] MEDS: Calcium Carb/Vitamin D 1 TABLET Tablet PO (07:49)
[2020-09-08] MEDS: Multivitamins,Ther W-Minerals Tablet 1 TABLET PO (07:49)
[2020-09-08] MEDS: Tuberculin,Purif.prot.deriv. 50 TU/ML Vial 5 ML ID (12:29)
[2020-09-08 14:43] VITALS: PULSE 90; RESP 16; O2SAT 98
[2020-09-08 14:57] VITALS: BP 122/70; PULSE 90; RESP 18; TEMP 36.2; O2SAT 98
[2020-09-08] MEDS: MELATONIN 10 MG TABLET PO (21:59)
[2020-09-08] MEDS: traZODone 50 MG Tablet PO (21:59)
[2020-09-08] MEDS: Atorvastatin Calcium 40 MG Tablet PO (21:59)
[2020-09-08] MEDS: Acetaminophen 500 MG Tablet 1000 MG PO (21:59)
[2020-09-09 05:44] VITALS: BP 116/72; PULSE 90; RESP 16; TEMP 36.4; O2SAT 97
[2020-09-09] MEDS: Polyethylene Glycol 3350 17 GM PACKET PO (05:45)
[2020-09-09] MEDS: APIXABAN 2.5 MG TABLET PO ×2 (05:46→17:24)
[2020-09-09] MEDS: Sertraline 50 MG Tablet 75 MG PO (05:47)
[2020-09-09] MEDS: Famotidine 20 MG Tablet PO (05:47)
[2020-09-09] MEDS: Loratadine 10 MG Tablet PO (05:48)
[2020-09-09] MEDS: Isosorbide Mononitrate 60 MG Tablet PO (05:48)
[2020-09-09] MEDS: Gabapentin 600 MG Tablet PO ×2 (05:48→17:24)
[2020-09-09] MEDS: Pantoprazole Sodium 40 MG Tablet PO (05:48)
[2020-09-09] MEDS: amLODIPine 2.5 MG Tablet PO (05:48)
[2020-09-09] MEDS: Clopidogrel Bisulfate 75 MG Tablet PO (05:48)
[2020-09-09] MEDS: Furosemide 40 MG Tablet PO ×2 (05:48→17:24)
[2020-09-09] MEDS: Levothyroxine 50 MCG Tablet PO (05:48)
[2020-09-09] MEDS: Losartan Potassium 50 MG Tablet PO ×2 (05:48→17:24)
[2020-09-09] MEDS: Menthol/Lanolin/Calamine/Znox 113 GM Tube 1 APPLIC TOPICAL ×2 (06:01→17:24)
[2020-09-09] MEDS: Potassium Chloride Oral Tablet 20 MEQ PO ×2 (11:13→17:24)
[2020-09-09] MEDS: Calcium Carb/Vitamin D 1 TABLET Tablet PO (11:14)
[2020-09-09] MEDS: Multivitamins,Ther W-Minerals Tablet 1 TABLET PO (11:14)
[2020-09-09] MEDS: Sucralfate 1 GM Tablet PO ×2 (11:14→17:24)
[2020-09-09] MEDS: Aspirin E.C. 81 MG Tablet PO (11:14)
--- NOTE | 2020-09-09 15:09 | CASEMGMT ---
Social Work IDT met with patient, ABEL and dtr for care plan meeting. Discussed patient's progress in therapy and nursing. Pt progressing well. Explained insurance NRD 09/10 and to anticipate NOMNC. Inquired about pt and family agreeable to setting DC date. pt and family agree pt is ready to DC home. Pt and family prefer HHC first then transition to OP. Pt used [facility] prior and prefer to use at DC. Referral made to [facility] PT/OT/SN. Dtr to stay with pt initially until [facility] can provide SOC 09/15. No DME needs. Notified [facility] to restart services. Notified Palliative Care of DC. Dtr to transport at DC. Plan: DC home alone, with family support, 09/13, [facility] PT/OT/SN, [facility], Palliative Erika Noble, CODING CLERKS SUPERVISOR [employer]BA INTER[employer]
[2020-09-09 15:22] VITALS: BP 134/78; PULSE 91; RESP 16; TEMP 36.6; O2SAT 98
[2020-09-09] MEDS: Senna/Docusate Sodium 1 Tablet PO (17:24)
[2020-09-09] MEDS: MELATONIN 10 MG TABLET PO (21:58)
[2020-09-09] MEDS: Atorvastatin Calcium 40 MG Tablet PO (21:58)
[2020-09-09] MEDS: traZODone 50 MG Tablet PO (21:58)
[2020-09-09] MEDS: Acetaminophen 500 MG Tablet 1000 MG PO (21:58)
[2020-09-09 22:00] VITALS: RESP 16
[2020-09-09] MEDS: Pramipexole Di-HCl 0.25 MG Tablet PO (22:30)
--- NOTE | 2020-09-10 04:50 | DS.PCM_ITS ---
Providers Date of Admission: 08/31/20 Primary Care Physician: Dr. Gladys Pickett MD Reason For Visit: HEALTHCARE ACQUIRED PNEUMONIA/CHF EXASPERATED Diagnosis Discharge Diagnosis (1) Debility: Status: Chronic Code(s): R53.81 - Other malaise (2) (HFpEF) heart failure with preserved ejection fraction: Status: Acute Code(s): I50.30 - Unspecified diastolic (congestive) heart failure Qualifiers: Heart failure chronicity: acute Qualified Code(s): I50.31 - Acute diastolic (congestive) heart failure (3) HABP (hospital-acquired bacterial pneumonia): Status: Deleted Code(s): J15.9 - Unspecified bacterial pneumonia (4) Afib: Status: Chronic Code(s): I48.91 - Unspecified atrial fibrillation Qualifiers: Atrial fibrillation type: unspecified chronic Qualified Code(s): I48.20 - Chronic atrial fibrillation, unspecified (5) Edema: Status: Inactive Code(s): R60.9 - Edema, unspecified (6) Essential hypertension: Status: Chronic Code(s): I10 - Essential (primary) hypertension (7) Hypothyroidism: Status: Chronic Code(s): E03.9 - Hypothyroidism, unspecified Qualifiers: Hypothyroidism type: unspecified Qualified Code(s): E03.9 - Hypothyroidism, unspecified (8) Pure hypercholesterolemia: Status: Chronic Code(s): E78.00 - Pure hypercholesterolemia, unspecified (9) Hypokalemia: Status: Resolved Code(s): E87.6 - Hypokalemia (10) ALVERTO on CPAP: Status: Chronic Code(s): G47.33 - Obstructive sleep apnea (adult) (pediatric); Z99.89 - Dependence on other enabling machines and devices (11) Neuropathic pain: Status: Acute Code(s): M79.2 - Neuralgia and neuritis, unspecified (12) Insomnia: Status: Acute Code(s): G47.00 - Insomnia, unspecified (13) Depression: Status: Acute Code(s): F32.9 - Major depressive disorder, single episode, unspecified (14) Hypomagnesemia: Status: Acute Code(s): E83.42 - Hypomagnesemia Medications at Discharge Home Medications atorvastatin 40 mg PO DAILY 08/19/19 clopidogrel 75 mg PO DAILY 08/19/19 gabapentin 600 mg PO BID 08/19/19 losartan 50 mg PO BID 08/19/19 pramipexole 0.25 mg PO BID PRN PRN 08/19/19 trazodone 50 mg tablet 50 mg PO QHS PRN 12/30/19 calcium carbonate-vitamin D3 1 tab PO DAILY 05/05/20 fexofenadine 60 mg PO DAILY 05/05/20 flaxseed oil 1,000 mg PO DAILY 05/05/20 sohtmnss-ftv-FT-lycopen-lutein 1 tab PO DAILY 05/05/20 nitroglycerin 0.4 mg SL Q5M 05/05/20 omega-3 fatty acids-fish oil 1 ea PO BID 05/05/20 pantoprazole 40 mg PO DAILY 05/05/20 sertraline 25 mg PO DAILY 05/05/20 vitamin B complex 1 tab PO DAILY 05/05/20 melatonin 10 mg PO QHS PRN PRN 05/06/20 amlodipine 2.5 mg tablet 2.5 mg PO DAILY #90 tab 06/01/20 isosorbide mononitrate 60 mg tablet,extended release 24 hr 60 mg PO DAILY 07/08/20 famotidine 20 mg tablet 20 mg PO BID 08/07/20 levothyroxine 50 mcg tablet 50 mcg PO DAILY 08/07/20 sertraline 50 mg PO DAILY 08/17/20 sucralfate 1 gm PO BID 08/22/20 furosemide 40 mg PO BID 08/26/20 magnesium oxide 400 mg PO DAILY 08/26/20 turmeric root extract 500 mg PO DAILY 08/26/20 docusate sodium [DOK] 100 mg PO BID PRN PRN #1 cap 08/30/20 apixaban 2.5 mg PO BID 08/31/20 aspirin 81 mg PO DAILY@0800 08/31/20 potassium chloride 20 meq PO BID 08/31/20 Hospital Course Operations None Procedures None Summary of Care Provided Minutes Spent on Discharge: 35 Hospital Course: 84 year old female with below past medical history hospitalized for acute respiratory failure secondary to acute on chronic diastolic heart failure, complicated by healthcare associated pneumonia, admitted to tcu with debility, here for rehabilitation, strengthening, prior to discharge home alone. Discharge home alone, with family support 09/13/2020, [facility] PT/OT/SN, [facility], Palliative. Physical Exam Const alert and oriented x3 General Appearance: cooperative HEENT normocephalic Eyes PERRL and EOMs intact bilaterally Neck supple, no JVD and no carotid bruits Resp normal respiratory effort, normal air movement and clear to auscultation bilaterally Cardio regular rate and regular rhythm GI normal to inspection, nondistended, normoactive bowel sounds, non-tender and non-distended Extremity normal capillary refill General Extremity: Negative for edema Skin no rashes or lesions noted General Skin Exam: no breakdown Psych affect normal Appearance: appropriate ABG / Lab / Microbiology Data Result Diagrams: 09/08/20 05:11 09/08/20 05:11 Microbiology: Microbiology 08/31/20 23:41 Interface Orders SARS-CoV-2 Antigen (Rapid) - Final D/C Instructions Discharge Diet: No restrictions Discharge Activity: Return to Normal Activity, May Shower and Use Walker Weight Bearing Status: Weight bearing as tolerated Call your doctor if you observe: Fever of 101 or Higher, Inability to urinate, Inability to have a bowel movement, Shortness of breath, Fainting spells, Chest pain and Uncontrolled pain Additional Instructions: Discharge home alone, with family support 09/13/2020, [facility] PT/OT/SN, [facility], Palliative. Please Follow Up With: Kirk Gomes MD When: 2 weeks. Meaningful Use Info Meaningful Use Diagnoses (Choose all that apply): None applicable Discharge Plan Admission Admit Date/Time: 08/31/20 16:45 Primary Reason for Your Visit: Debility Attending Provider: Lamonte Jimenez Chi Primary Care Provider: Gladys Pickett Instructions Additional Instructions / Restrictions: Discharge home alone, with family support 09/13/2020, [facility] PT/OT/SN, [facility], Palliative. Discharge Orders/Prescriptions Prescriptions: Continued trazodone 50 mg tablet 50 mg PO QHS PRN (Reason: Sleep) RF: 0 isosorbide mononitrate 60 mg tablet extended release 24 hr 60 mg PO DAILY RF: 0 levothyroxine 50 mcg tablet 50 mcg PO DAILY RF: 0 famotidine 20 mg tablet 20 mg PO BID RF: 0 losartan 50 MG tablet 50 mg PO BID RF: 0 atorvastatin 40 MG tablet 40 mg PO DAILY RF: 0 clopidogrel 75 MG tablet 75 mg PO DAILY RF: 0 pramipexole 0.25 MG tablet 0.25 mg PO BID PRN PRN (Reason: SCIATICA) RF: 0 gabapentin 300 MG capsule 600 mg PO BID RF: 0 fexofenadine 60 MG tablet 60 mg PO DAILY RF: 0 calcium carbonate-vitamin D3 1 EACH tablet 1 tab PO DAILY RF: 0 flaxseed oil 1,000 MG capsule 1,000 mg PO DAILY RF: 0 pantoprazole 40 MG tablet 40 mg PO DAILY RF: 0 nitroglycerin 0.4 MG tablet 0.4 mg SL Q5M RF: 0 sertraline 25 MG tablet 25 mg PO DAILY RF: 0 vitamin B complex 1 EACH tablet 1 tab PO DAILY RF: 0 vivmhwfi-nnz-[place]-lycopen-lutein 1 EACH tablet 1 tab PO DAILY RF: 0 omega-3 fatty acids-fish oil 1 EACH capsule 1 ea PO BID RF: 0 melatonin 10 MG tablet 10 mg PO QHS PRN PRN (Reason: Sleep) RF: 0 sertraline 50 MG tablet 50 mg PO DAILY RF: 0 sucralfate 1 GM tablet 1 gm PO BID RF: 0 turmeric root extract 500 mg Capsule 500 mg PO DAILY RF: 0 magnesium oxide 400 mg magnesium Tablet 400 mg PO DAILY RF: 0 furosemide 40 mg tablet 40 mg PO BID RF: 0 docusate sodium [DOK] 100 mg Capsule 100 mg PO BID PRN PRN (Reason: Constipation) Qty: 1 RF: 0 aspirin 81 MG tablet,delayed release (DR/EC) 81 mg PO DAILY@0800 RF: 0 potassium chloride 20 mEq tablet,ER particles/crystals 20 meq PO BID RF: 0 apixaban 2.5 mg tablet 2.5 mg PO BID RF: 0 amlodipine 2.5 mg tablet 2.5 mg PO DAILY Qty: 90 RF: 3 Referrals / Follow Up: Gladys Pickett MD [Primary Care Provider] - Disposition Disposition (needs filled in before D/C Order can be placed): Home, self care
[2020-09-10 06:02] VITALS: BP 124/77; PULSE 90; RESP 16; TEMP 36.7; O2SAT 96
[2020-09-10] MEDS: APIXABAN 2.5 MG TABLET PO ×2 (06:05→17:12)
[2020-09-10] MEDS: Pantoprazole Sodium 40 MG Tablet PO (06:05)
[2020-09-10] MEDS: Senna/Docusate Sodium 1 Tablet PO ×2 (06:05→17:12)
[2020-09-10] MEDS: Sertraline 50 MG Tablet 75 MG PO (06:05)
[2020-09-10] MEDS: Gabapentin 600 MG Tablet PO ×2 (06:06→17:12)
[2020-09-10] MEDS: Levothyroxine 50 MCG Tablet PO (06:06)
[2020-09-10] MEDS: Isosorbide Mononitrate 60 MG Tablet PO (06:06)
[2020-09-10] MEDS: Famotidine 20 MG Tablet PO (06:06)
[2020-09-10] MEDS: Losartan Potassium 50 MG Tablet PO ×2 (06:06→17:12)
[2020-09-10] MEDS: Clopidogrel Bisulfate 75 MG Tablet PO (06:06)
[2020-09-10] MEDS: Furosemide 40 MG Tablet PO ×2 (06:06→17:12)
[2020-09-10] MEDS: Loratadine 10 MG Tablet PO (06:06)
[2020-09-10] MEDS: amLODIPine 2.5 MG Tablet PO (06:06)
[2020-09-10] MEDS: Menthol/Lanolin/Calamine/Znox 113 GM Tube 1 APPLIC TOPICAL ×2 (06:07→17:15)
[2020-09-10] MEDS: Sucralfate 1 GM Tablet PO ×2 (07:45→17:12)
[2020-09-10] MEDS: Potassium Chloride Oral Tablet 20 MEQ PO ×2 (07:46→17:12)
[2020-09-10] MEDS: Multivitamins,Ther W-Minerals Tablet 1 TABLET PO (07:46)
[2020-09-10] MEDS: Aspirin E.C. 81 MG Tablet PO (07:46)
[2020-09-10] MEDS: Calcium Carb/Vitamin D 1 TABLET Tablet PO (07:46)
[2020-09-10] MEDS: Acetaminophen 500 MG Tablet 1000 MG PO ×2 (07:47→22:09)
[2020-09-10 11:01] VITALS: PULSE 90; RESP 16; O2SAT 98
[2020-09-10] MEDS: Polyethylene Glycol 3350 17 GM PACKET PO (11:10)
--- NOTE | 2020-09-10 13:44 | MDS.RN ---
Information for the mds was obtained from review of the clinical record, interview of resident, staff, and direct observation of resident's care.
[2020-09-10 15:31] VITALS: BP 113/69; PULSE 84; RESP 16; TEMP 36.3; O2SAT 95
[2020-09-10] MEDS: traZODone 50 MG Tablet PO (22:08)
[2020-09-10] MEDS: Atorvastatin Calcium 40 MG Tablet PO (22:08)
[2020-09-10] MEDS: MELATONIN 10 MG TABLET PO (22:09)
[2020-09-10] MEDS: Pramipexole Di-HCl 0.25 MG Tablet PO (22:09)
[2020-09-11 06:30] VITALS: BP 119/73; PULSE 92; RESP 18; TEMP 36.7; O2SAT 95
[2020-09-11] MEDS: Isosorbide Mononitrate 60 MG Tablet PO (06:32)
[2020-09-11] MEDS: Polyethylene Glycol 3350 17 GM PACKET PO (06:32)
[2020-09-11] MEDS: Losartan Potassium 50 MG Tablet PO ×2 (06:32→16:56)
[2020-09-11] MEDS: APIXABAN 2.5 MG TABLET PO ×2 (06:32→16:56)
[2020-09-11] MEDS: Senna/Docusate Sodium 1 Tablet PO ×2 (06:33→16:56)
[2020-09-11] MEDS: Pantoprazole Sodium 40 MG Tablet PO (06:33)
[2020-09-11] MEDS: amLODIPine 2.5 MG Tablet PO (06:33)
[2020-09-11] MEDS: Gabapentin 600 MG Tablet PO ×2 (06:33→16:56)
[2020-09-11] MEDS: Furosemide 40 MG Tablet PO ×2 (06:33→16:56)
[2020-09-11] MEDS: Sertraline 50 MG Tablet 75 MG PO (06:33)
[2020-09-11] MEDS: Famotidine 20 MG Tablet PO (06:33)
[2020-09-11] MEDS: Loratadine 10 MG Tablet PO (06:33)
[2020-09-11] MEDS: Clopidogrel Bisulfate 75 MG Tablet PO (06:33)
[2020-09-11] MEDS: Levothyroxine 50 MCG Tablet PO (06:33)
[2020-09-11] MEDS: Menthol/Lanolin/Calamine/Znox 113 GM Tube 1 APPLIC TOPICAL ×2 (06:34→16:56)
[2020-09-11] MEDS: Calcium Carb/Vitamin D 1 TABLET Tablet PO (09:21)
[2020-09-11] MEDS: Multivitamins,Ther W-Minerals Tablet 1 TABLET PO (09:21)
[2020-09-11] MEDS: Potassium Chloride Oral Tablet 20 MEQ PO ×2 (09:21→16:56)
[2020-09-11] MEDS: Sucralfate 1 GM Tablet PO ×2 (09:21→16:56)
[2020-09-11] MEDS: Aspirin E.C. 81 MG Tablet PO (09:21)
--- NOTE | 2020-09-11 13:38 | MDS.RN ---
completed pain interview for kun 09/13/20
[2020-09-11 14:57] VITALS: BP 135/74; PULSE 91; RESP 20; TEMP 36.6; O2SAT 97
--- NOTE | 2020-09-11 15:07 | CASEMGMT ---
Social Work BIMS and PHQ-9 completed for MDS assessment. Erika Noble, [employer]
[2020-09-11] MEDS: Atorvastatin Calcium 40 MG Tablet PO (22:04)
[2020-09-11] MEDS: traZODone 50 MG Tablet PO (22:04)
[2020-09-11] MEDS: Pramipexole Di-HCl 0.25 MG Tablet PO (22:05)
[2020-09-11] MEDS: Acetaminophen 500 MG Tablet 1000 MG PO (22:05)
[2020-09-11] MEDS: MELATONIN 10 MG TABLET PO (22:07)
[2020-09-12 04:00] VITALS: BP 109/67; PULSE 90; RESP 16; TEMP 36.4; O2SAT 96
[2020-09-12 05:26] VITALS: BP 121/79; PULSE 90; RESP 16; TEMP 36.6; O2SAT 95
[2020-09-12] MEDS: Polyethylene Glycol 3350 17 GM PACKET PO (05:30)
[2020-09-12] MEDS: Famotidine 20 MG Tablet PO (05:31)
[2020-09-12] MEDS: Sertraline 50 MG Tablet 75 MG PO (05:31)
[2020-09-12] MEDS: Furosemide 40 MG Tablet PO ×2 (05:32→17:44)
[2020-09-12] MEDS: Losartan Potassium 50 MG Tablet PO ×2 (05:32→17:43)
[2020-09-12] MEDS: Loratadine 10 MG Tablet PO (05:32)
[2020-09-12] MEDS: Clopidogrel Bisulfate 75 MG Tablet PO (05:33)
[2020-09-12] MEDS: Pantoprazole Sodium 40 MG Tablet PO (05:33)
[2020-09-12] MEDS: amLODIPine 2.5 MG Tablet PO (05:33)
[2020-09-12] MEDS: Gabapentin 600 MG Tablet PO ×2 (05:33→17:44)
[2020-09-12] MEDS: Levothyroxine 50 MCG Tablet PO (05:33)
[2020-09-12] MEDS: APIXABAN 2.5 MG TABLET PO ×2 (05:33→17:44)
[2020-09-12] MEDS: Isosorbide Mononitrate 60 MG Tablet PO (05:33)
[2020-09-12] MEDS: Menthol/Lanolin/Calamine/Znox 113 GM Tube 1 APPLIC TOPICAL ×2 (05:45→17:44)
[2020-09-12] MEDS: Sucralfate 1 GM Tablet PO ×2 (09:13→16:21)
[2020-09-12] MEDS: Aspirin E.C. 81 MG Tablet PO (09:13)
[2020-09-12] MEDS: Calcium Carb/Vitamin D 1 TABLET Tablet PO (09:14)
[2020-09-12] MEDS: Multivitamins,Ther W-Minerals Tablet 1 TABLET PO (09:14)
[2020-09-12] MEDS: Potassium Chloride Oral Tablet 20 MEQ PO ×2 (09:14→16:22)
[2020-09-12 10:00] VITALS: PULSE 90; RESP 16; O2SAT 98
[2020-09-12 14:16] VITALS: BP 114/61; PULSE 91; RESP 20; TEMP 36.1; O2SAT 95
[2020-09-12 17:45] VITALS: BP 140/75; RESP 91
[2020-09-12] MEDS: traZODone 50 MG Tablet PO (22:01)
[2020-09-12] MEDS: MELATONIN 10 MG TABLET PO (22:01)
[2020-09-12] MEDS: Pramipexole Di-HCl 0.25 MG Tablet PO (22:01)
[2020-09-12] MEDS: Atorvastatin Calcium 40 MG Tablet PO (22:01)
[2020-09-12] MEDS: Acetaminophen 500 MG Tablet 1000 MG PO (22:02)
[2020-09-13 05:00] VITALS: BP 126/77; PULSE 90; RESP 15; TEMP 36.4; O2SAT 96
[2020-09-13] MEDS: Polyethylene Glycol 3350 17 GM PACKET PO (05:23)
[2020-09-13] MEDS: Sertraline 50 MG Tablet 75 MG PO (05:23)
[2020-09-13] MEDS: Gabapentin 600 MG Tablet PO (05:24)
[2020-09-13] MEDS: Sucralfate 1 GM Tablet PO (05:24)
[2020-09-13] MEDS: Clopidogrel Bisulfate 75 MG Tablet PO (05:24)
[2020-09-13] MEDS: Famotidine 20 MG Tablet PO (05:24)
[2020-09-13] MEDS: Levothyroxine 50 MCG Tablet PO (05:24)
[2020-09-13] MEDS: Pantoprazole Sodium 40 MG Tablet PO (05:24)
[2020-09-13] MEDS: APIXABAN 2.5 MG TABLET PO (05:25)
[2020-09-13] MEDS: Loratadine 10 MG Tablet PO (05:25)
[2020-09-13] MEDS: Furosemide 40 MG Tablet PO (05:25)
[2020-09-13] MEDS: Losartan Potassium 50 MG Tablet PO (05:25)
[2020-09-13] MEDS: Isosorbide Mononitrate 60 MG Tablet PO (05:25)
[2020-09-13] MEDS: Menthol/Lanolin/Calamine/Znox 113 GM Tube 1 APPLIC TOPICAL (05:29)
[2020-09-13] MEDS: amLODIPine 2.5 MG Tablet PO (05:32)
[2020-09-13] MEDS: Multivitamins,Ther W-Minerals Tablet 1 TABLET PO (08:34)
[2020-09-13] MEDS: Calcium Carb/Vitamin D 1 TABLET Tablet PO (08:34)
[2020-09-13] MEDS: Aspirin E.C. 81 MG Tablet PO (08:34)
[2020-09-13] MEDS: Potassium Chloride Oral Tablet 20 MEQ PO (08:34)
== END 2020-09-13 12:30 | disposition home health service (06) | DRG 292 ==
PROVIDERS: Admitting Provider Family Medicine Geriatric Medicine; PCP Internal Medicine; Visit Provider Family Medicine Geriatric Medicine
DX: I11.0 Hypertensive heart disease with heart failure (principal); I48.20 Chronic atrial fibrillation, unspecified; I50.33 Acute on chronic diastolic (congestive) heart failure; K21.9 Gastro-esophageal reflux disease without esophagitis; I25.10 Atherosclerotic heart disease of native coronary artery without angina pectoris; E78.5 Hyperlipidemia, unspecified; F32.9 Major depressive disorder, single episode, unspecified; H91.93 Unspecified hearing loss, bilateral; I25.2 Old myocardial infarction; E03.9 Hypothyroidism, unspecified; E87.6 Hypokalemia; M79.2 Neuralgia and neuritis, unspecified; G25.81 Restless legs syndrome; G47.33 Obstructive sleep apnea (adult) (pediatric); Z95.810 Presence of automatic (implantable) cardiac defibrillator; Z79.899 Other long term (current) drug therapy; Z79.02 Long term (current) use of antithrombotics/antiplatelets; Z79.82 Long term (current) use of aspirin
CPT/HCPCS: 36415; 80048; 85025; 87426; 97110; 97116; 97162; 97166; 97530; 97535; 97802; 99251; G0463

== ENCOUNTER 2020-10-14 17:35 | Outpatient (RCR) | payer MEDICARE, SELFPAY ==
[2019-12-09 08:37] VITALS: BMI 24.3
[2020-10-05 12:44] VITALS: BMI 23.6
[2020-10-14 18:11] LABS: Anion Gap 8 (5-15); BUN 23 mg/dL (7-18); BUN/Creat Ratio 23.2 RATIO (10-20); Calcium,Total 8.9 mg/dL (8.5-10.1); Chloride 99 mmol/L (98-107); Creatinine, Serum 0.99 mg/dL (0.55-1.02); EST Glomerular Filtration Rate 57 mL/min (>60); Est Glom Filt Rate - Afr Amer 69 mL/min (>60); Glucose 94 mg/dL (74-106); Potassium 3.8 mmol/L (3.5-5.1); Sodium Level 137 mmol/L (136-145)
== END 2020-10-14 18:00 | disposition home or self-care (01) ==
LOC: HHLAB 17:35
PROVIDERS: Visit Provider Internal Medicine
DX: I11.0 Hypertensive heart disease with heart failure (principal); I50.33 Acute on chronic diastolic (congestive) heart failure; J18.9 Pneumonia, unspecified organism
CPT/HCPCS: 80048

== ENCOUNTER → 2021-03-31 13:35 | Outpatient (CLI) | payer MEDICARE, SELFPAY ==
[2019-12-09 08:37] VITALS: BMI 24.3
[2021-03-31 15:43] LABS: Amphetamine Urine VISTA NEGATIVE (<1000 ng/mL); Barbiturate Urine VISTA NEGATIVE (< 200 ng/mL); Benzodiazepine Urine VISTA NEGATIVE (< 200 ng/mL); Cocaine Urine VISTA NEGATIVE (< 300 ng/mL); Ecstacy Urine VISTA POSITIVE (< 500 ng/mL); Methadone Urine VISTA NEGATIVE (< 300 ng/mL); PCP Urine VISTA NEGATIVE (< 25 ng/mL); THC Urine VISTA NEGATIVE (< 50 ng/mL); Vista UDS pH Range 7
== END ==
PROVIDERS: PCP Internal Medicine; Referring Provider Anesthesiology Pain Medicine; Visit Provider Anesthesiology Pain Medicine
DX: F11.20 Opioid dependence, uncomplicated (principal)
CPT/HCPCS: 80307

== ENCOUNTER 2021-08-16 14:08 | Outpatient (CLI) | payer MEDICARE, SELFPAY ==
[2019-12-09 08:37] VITALS: BMI 24.3
--- NOTE | 2021-08-16 14:20 | RAD_ITS ---
STUDY: X-RAY CHEST REASON FOR EXAM: Female, 85 years old. GUERRA TECHNIQUE: PA and lateral. COMPARISON: 08/26/2020. FINDINGS: LINES/DEVICES: Pacemaker device overlying the left anterior chest wall with single lead terminating in the region of the right ventricle, unchanged. LUNGS: Mildly hyperinflated. No consolidation. No pneumothorax. MEDIASTINUM: Aorta atherosclerotic.. CARDIAC SILHOUETTE: Not enlarged. BONES AND SOFT TISSUES: No acute abnormalities. RAD/Chest PA and Lateral IMPRESSION: Mildly hyperinflated lungs. No infiltrates. Electronically Signed: Luanne Tenorio MD at 2:41 EDT ,
[2021-08-16 15:33] LABS: Absolute Lymphocyte Count 2.19 X10^3/uL (0.83-4.51); Absolute Neutrophil Count 5.8 X10^3/uL (2.0-7.7); Basophil# 0.02 X10^3/uL; Basophil% 0.2 % (0-1); Eosinophil# 0.21 X10^3/uL; Eosinophils% 2.4 % (0-5); Hematocrit 42.5 % (37-47); Hemoglobin 14.3 g/dL (12.0-15.0); Lymphocyte # 2.19 X10^3/ul (0.83-4.51); Mean Corp Hgb Conc 33.6 g/dL (32-36); Mean Corpuscular Hgb 30.5 pg (27.0-32.0); Mean Corpuscular Volume 90.6 fL (81-99); Mean Platelet Vol. 9.9 fl (6.2-12.0); Monocyte# 0.52 X10^3/uL; Monocyte% 5.9 % (0-10); NRBC Flagged by Analyzer 0 % (0-5); Neutrophil # 5.78 X10^3/uL (2.7-7.7); Neutrophil % 66.2 % (47-70); Platelet Count 256 K/mm3 (150-450); RBC Distribution Width CV 14.5 % (11.6-14.6); RBC Distribution Width SD 47.9 fl (35.1-43.9); Red Blood Count 4.69 M/mm3 (4.2-5.4); White Blood Count 8.8 K/mm3 (4.4-11.0)
[2021-08-16 15:54] LABS: BNP,B-Type NATRIURETIC PEPTIDE 176.5 pg/mL (0-100)
[2021-08-16 16:03] LABS: Anion Gap 9 (5-15); BUN 20 mg/dL (7-18); BUN/Creat Ratio 18.7 RATIO (10-20); Chloride 101 mmol/L (98-107); Creatinine, Serum 1.07 mg/dL (0.55-1.02); EST Glomerular Filtration Rate 52 mL/min (>60); Est Glom Filt Rate - Afr Amer 63 mL/min (>60); Glucose 109 mg/dL (74-106); Magnesium 2.4 mg/dL (1.6-2.6); Potassium 3.9 mmol/L (3.5-5.1); Sodium Level 138 mmol/L (136-145)
== END 2021-08-16 23:59 | disposition home or self-care (01) ==
PROVIDERS: PCP Internal Medicine; Referring Provider Nurse Practitioner Gerontology; Visit Provider Nurse Practitioner Gerontology
DX: R06.00 Dyspnea, unspecified (principal)
CPT/HCPCS: 36415; 71046; 80048; 83735; 83880; 85025

== ENCOUNTER → 2021-08-25 | Outpatient (CLI) | payer MEDICARE, SELFPAY ==
[2019-12-09 08:37] VITALS: BMI 24.3
[2021-08-25 10:08] LABS: Anion Gap 7 (5-15); BUN 21 mg/dL (7-18); BUN/Creat Ratio 21.8 RATIO (10-20); Calcium,Total 9.4 mg/dL (8.5-10.1); Chloride 101 mmol/L (98-107); Creatinine, Serum 0.96 mg/dL (0.55-1.02); EST Glomerular Filtration Rate 59 mL/min (>60); Est Glom Filt Rate - Afr Amer 71 mL/min (>60); Glucose 114 mg/dL (74-106); Potassium 4.3 mmol/L (3.5-5.1); Sodium Level 138 mmol/L (136-145)
== END | disposition home or self-care (01) ==
LOC: LAB 09:07
PROVIDERS: PCP Internal Medicine; Referring Provider Nurse Practitioner Gerontology; Visit Provider Nurse Practitioner Gerontology
DX: R06.00 Dyspnea, unspecified (principal)
CPT/HCPCS: 36415; 80048

== ENCOUNTER → 2022-04-04 | Outpatient (CLI) | payer MEDICARE, SELFPAY ==
[2021-10-04 11:30] VITALS: BMI 24.3
[2022-04-04 12:35] LABS: Absolute Lymphocyte Count 1.59 X10^3/uL (0.83-4.51); Absolute Neutrophil Count 4.6 X10^3/uL (2.0-7.7); Basophil# 0.01 X10^3/uL; Basophil% 0.1 % (0-1); Eosinophil# 0.14 X10^3/uL; Hematocrit 43.2 % (37-47); Lymphocyte # 1.59 X10^3/ul (0.83-4.51); Mean Corp Hgb Conc 32.4 g/dL (32-36); Mean Corpuscular Volume 92.7 fL (81-99); Mean Platelet Vol. 10.1 fl (6.2-12.0); Monocyte# 0.58 X10^3/uL; Monocyte% 8.4 % (0-10); NRBC Flagged by Analyzer 0 % (0-5); Neutrophil # 4.56 X10^3/uL (2.7-7.7); Neutrophil % 66.2 % (47-70); Platelet Count 227 K/mm3 (150-450); RBC Distribution Width CV 15.3 % (11.6-14.6); RBC Distribution Width SD 52.1 fl (35.1-43.9); Red Blood Count 4.66 M/mm3 (4.2-5.4); White Blood Count 6.9 K/mm3 (4.4-11.0)
[2022-04-04 13:02] LABS: Anion Gap 7 (5-15); BUN 24 mg/dL (7-18); BUN/Creat Ratio 22.9 RATIO (10-20); Calcium,Total 9.4 mg/dL (8.5-10.1); Chloride 101 mmol/L (98-107); Creatinine, Serum 1.05 mg/dL (0.55-1.02); EST Glomerular Filtration Rate 53 mL/min (>60); Est Glom Filt Rate - Afr Amer 64 mL/min (>60); Glucose 78 mg/dL (74-106); Potassium 3.6 mmol/L (3.5-5.1); Sodium Level 141 mmol/L (136-145)
[2022-04-04 13:04] LABS: BNP,B-Type NATRIURETIC PEPTIDE 148.6 pg/mL (0-100)
== END | disposition home or self-care (01) ==
LOC: LAB 11:45
PROVIDERS: PCP Internal Medicine; Referring Provider Nurse Practitioner Gerontology; Visit Provider Nurse Practitioner Gerontology
DX: R06.02 Shortness of breath (principal)
CPT/HCPCS: 36415; 80048; 83880; 85025

== ENCOUNTER 2022-04-12 12:40 | Outpatient (CLI) | payer MEDICARE, SELFPAY ==
[2021-10-04 11:30] VITALS: BMI 24.3
--- NOTE | 2022-04-12 13:11 | ECHOD_ITS ---
Reason For Study: SOB Procedure This was a 2D Doppler, Color Flow transthoracic echocardiogram. The study was technically difficult. Exam performed in department. Left Ventricle Normal LV size. Sigmoid septum. Left ventricular systolic function is normal. The estimated ejection fraction is 55 %. Diastolic function is indeterminate. No regional wall motion abnormalities noted. Right Ventricle Normal RV size. ICD or pacer leads identified within the right ventricle. Normal systolic function. Atria The left atrium is moderately enlarged. Normal right atrium. ICD or pacer leads identified within the right atrium. No doppler evidence for ASD. Mitral Valve There is mild mitral annular calcification. Extension of the mitral annular calcification onto the base of the posterior mitral leaflet. Mild focal mitral valve calcification of the anterior leaflet. Moderate (2+) mitral valve insufficiency. Tricuspid Valve Normal tricuspid valve. Mild to moderate (1-2+) tricuspid valve insufficiency. Right ventricular systolic pressure estimated to be 29 mmHg. Aortic Valve Trisinus/trileaflet aortic valve. Mild diffuse aortic valve thickening. Mild focal aortic valve calcification. Trivial aortic valve insufficiency. Pulmonic Valve The pulmonic valve is not well visualized. Trivial pulmonic valve insufficiency. Great Vessels Normal sized aortic root. Calcified aortic root. Pericardium/Pleural No pericardial effusion. MMode/2D Measurements & Calculations LVIDd: 3.5 cm IVSd: 1.3 cm Ao root diam: 2.8 cm LVIDs: 2.0 cm LVPWd: 0.88 cm RVDd: 3.0 cm FS: 43.3 % LAV(MOD-bp): 60.4 ml LVAd ap4: 20.4 cm2 LVAd ap2: 17.3 cm2 LAV(MOD-bp) Indexed: 36.1 ml/m2 LVLd ap4: 6.8 cm LVLd ap2: 6.1 cm LAV(MOD-sp2): 48.9 ml EDV(MOD-sp4): 49.4 ml EDV(MOD-sp2): 40.7 ml LAV(MOD-sp4): 69.7 ml EDV(sp4-el): 51.7 ml EDV(sp2-el): 41.8 ml LVAs ap4: 12.2 cm2 LVAs ap2: 12.2 cm2 LVLs ap4: 6.1 cm LVLs ap2: 6.2 cm ESV(MOD-sp4): 20.3 ml ESV(MOD-sp2): 20.4 ml ESV(sp4-el): 20.7 ml ESV(sp2-el): 20.4 ml EF(MOD-sp4): 58.8 % EF(MOD-sp2): 49.8 % EF(sp4-el): 59.9 % SV(MOD-sp4): 29.1 ml SV(MOD-sp2): 20.2 ml SV(sp4-el): 31.0 ml LA dimension(2D): 4.3 cm LA A4 area: 22.4 cm2 RA A4 area: 19.8 cm2 Doppler Measurements & Calculations MV E max kishan: 108.9 cm/sec Ao V2 max: 129.1 cm/sec LV V1 max: 90.4 cm/sec Ao max P.7 mmHg LV V1 max P.3 mmHg PA V2 max: 82.0 cm/sec TR max kishan: 251.2 cm/sec TR max P.5 mmHg ECHO/Echo Complete Interpretation Summary Left ventricular systolic function is normal. The estimated ejection fraction is 55 %. Sigmoid septum. The left atrium is moderately enlarged. There is mild mitral annular calcification. Extension of the mitral annular calcification onto the base of the posterior mi tral leaflet. Mild focal mitral valve calcification of the anterior leaflet. Moderate (2+) mitral valve insufficiency. Mild to moderate (1-2+) tricuspid valve insufficiency. Mild diffuse aortic valve thickening. Mild focal aortic valve calcification. Trivial pulmonic valve insufficiency. Calcified aortic root. Right ventricular systolic pressure estimated to be 29 mmHg. Diastolic function is indeterminate. ICD or pacer leads identified within the right atrium ICD or pacer leads identified within the right ventricle. Ordering Physician: Nataliya Chance Referring Physician: Gladys Pickett Performed By: Amy Storey RDCS
== END 2022-04-12 23:59 | disposition home or self-care (01) ==
LOC: CVS 12:40
PROVIDERS: PCP Internal Medicine; Visit Provider Nurse Practitioner Gerontology
DX: R06.00 Dyspnea, unspecified (principal); R06.02 Shortness of breath
CPT/HCPCS: 36415; 80048; 93306

== ENCOUNTER → 2022-04-12 | Outpatient (CLI) | payer MEDICARE, SELFPAY ==
[2021-10-04 11:30] VITALS: BMI 24.3
[2022-04-12 15:22] LABS: Anion Gap 10 (5-15); BUN 21 mg/dL (7-18); BUN/Creat Ratio 19.6 RATIO (10-20); Calcium,Total 9.7 mg/dL (8.5-10.1); Chloride 102 mmol/L (98-107); Creatinine, Serum 1.07 mg/dL (0.55-1.02); EST Glomerular Filtration Rate 52 mL/min (>60); Est Glom Filt Rate - Afr Amer 63 mL/min (>60); Glucose 166 mg/dL (74-106); Potassium 4.3 mmol/L (3.5-5.1); Sodium Level 138 mmol/L (136-145)
== END | disposition home or self-care (01) ==
LOC: LAB 12:26
PROVIDERS: PCP Internal Medicine; Referring Provider Nurse Practitioner Gerontology; Visit Provider Nurse Practitioner Gerontology
DX: R06.00 Dyspnea, unspecified (principal)
CPT/HCPCS: 36415; 80048

== ENCOUNTER → 2022-07-13 | Outpatient (CLI) | payer MEDICARE, SELFPAY ==
[2021-10-04 11:30] VITALS: BMI 24.3
[2022-07-13 15:56] LABS: Absolute Lymphocyte Count 2.24 X10^3/uL (0.83-4.51); Absolute Neutrophil Count 5.2 X10^3/uL (2.0-7.7); Basophil# 0.02 X10^3/uL; Basophil% 0.2 % (0-1); Eosinophil# 0.27 X10^3/uL; Eosinophils% 3.2 % (0-5); Hematocrit 44.4 % (37-47); Hemoglobin 14.5 g/dL (12.0-15.0); Lymphocyte # 2.24 X10^3/ul (0.83-4.51); Lymphocyte % 26.7 % (19-41); Mean Corp Hgb Conc 32.7 g/dL (32-36); Mean Corpuscular Volume 95.1 fL (81-99); Mean Platelet Vol. 9.6 fl (6.2-12.0); Monocyte# 0.63 X10^3/uL; Monocyte% 7.5 % (0-10); NRBC Flagged by Analyzer 0 % (0-5); Neutrophil # 5.21 X10^3/uL (2.7-7.7); Neutrophil % 62.2 % (47-70); Platelet Count 227 K/mm3 (150-450); RBC Distribution Width CV 14.1 % (11.6-14.6); RBC Distribution Width SD 49.2 fl (35.1-43.9); Red Blood Count 4.67 M/mm3 (4.2-5.4); White Blood Count 8.4 K/mm3 (4.4-11.0)
[2022-07-13 16:32] LABS: Anion Gap 6 (5-15); BUN 26 mg/dL (7-18); BUN/Creat Ratio 24.3 RATIO (10-20); Calcium,Total 9.8 mg/dL (8.5-10.1); Chloride 104 mmol/L (98-107); Creatinine, Serum 1.07 mg/dL (0.55-1.02); EST Glomerular Filtration Rate 52 mL/min (>60); Est Glom Filt Rate - Afr Amer 63 mL/min (>60); Glucose 103 mg/dL (74-106); Potassium 4.3 mmol/L (3.5-5.1); Sodium Level 141 mmol/L (136-145)
[2022-07-13 16:33] LABS: BNP,B-Type NATRIURETIC PEPTIDE 115.8 pg/mL (0-100)
== END | disposition home or self-care (01) ==
LOC: LAB 15:33
PROVIDERS: Nurse Practitioner Gerontology; PCP Internal Medicine; Visit Provider Physician Assistant Medical
DX: R06.02 Shortness of breath (principal)
CPT/HCPCS: 36415; 80048; 83880; 85025

== ENCOUNTER → 2023-02-27 | Outpatient (CLI) | payer MEDICARE, SELFPAY ==
[2021-10-04 11:30] VITALS: BMI 24.3
--- NOTE | 2023-02-27 15:39 | CT_ITS ---
STUDY: CT BRAIN WITHOUT CONTRAST REASON FOR EXAM: Female, 87 years old. HEARING LOSS RADIATION DOSAGE (If Supplied By Facility): CTDIvol = ( 44.99 ) mGy, DLP = ( 812.98 ) mGycm TECHNIQUE: Transaxial CT imaging of the brain was performed without administration of intravenous contrast material. Individualized dose optimization techniques were used for this CT. COMPARISON: 08/17/2020 FINDINGS: Normal soft tissue structures. Normal calvarium. There is mild cerebral atrophy with widening of the extra-axial spaces and ventricular dilatation. There are areas of decreased attenuation within the white matter tracts of the supratentorial brain, consistent with microvascular disease changes. Normal basal ganglia and thalami. Normal brainstem. There is mild cerebellar atrophy. There is no intracranial hemorrhage. There are no findings of an acute ischemic infarction. Continued opacification of the right maxillary sinus, otherwise negative visualized paranasal sinuses. CT/Brain/Head without Contrast IMPRESSION: Chronic involutional changes of the brain. No acute abnormality seen. Electronically Signed: Siddharth Jason MD at 16:58 EDT ,
== END | disposition home or self-care (01) ==
LOC: CT 15:39
PROVIDERS: PCP Internal Medicine; Referring Provider Clinical Nurse Specialist; Visit Provider Clinical Nurse Specialist
DX: S09.90XA Unspecified injury of head, initial encounter (principal)
CPT/HCPCS: 70450

== ENCOUNTER → 2023-07-10 | Outpatient (CLI) | payer MEDICARE, SELFPAY ==
[2021-10-04 11:30] VITALS: BMI 24.3
[2023-07-10 11:25] LABS: Absolute Lymphocyte Count 2.25 X10^3/uL (0.83-4.51); Absolute Neutrophil Count 5.8 X10^3/uL (2.0-7.7); Basophil# 0.01 X10^3/uL; Basophil% 0.1 % (0-1); Eosinophil# 0.18 X10^3/uL; Eosinophils% 2.1 % (0-5); Hematocrit 46.6 % (37-47); Hemoglobin 14.9 g/dL (12.0-15.0); Lymphocyte # 2.25 X10^3/ul (0.83-4.51); Lymphocyte % 26.1 % (19-41); Mean Corpuscular Hgb 29.4 pg (27.0-32.0); Mean Corpuscular Volume 92.1 fL (81-99); Mean Platelet Vol. 9.8 fl (6.2-12.0); Monocyte# 0.38 X10^3/uL; Monocyte% 4.4 % (0-10); NRBC Flagged by Analyzer 0 % (0-5); Neutrophil # 5.77 X10^3/uL (2.7-7.7); Neutrophil % 67.1 % (47-70); Platelet Count 261 K/mm3 (150-450); RBC Distribution Width CV 14.8 % (11.6-14.6); RBC Distribution Width SD 50.4 fl (35.1-43.9); Red Blood Count 5.06 M/mm3 (4.2-5.4); White Blood Count 8.6 K/mm3 (4.4-11.0)
[2023-07-10 12:46] LABS: AST(SGOT) 19 U/L (15-37); Alanine Aminotransfer ALT/SGPT 26 U/L (13-56); Albumin, Serum 3.8 g/dL (3.2-5.0); Alkaline Phosphatase 102 U/L (45-117); Anion Gap 11 (5-15); BUN 24 mg/dL (7-18); BUN/Creat Ratio 20.9 RATIO (10-20); Calcium,Total 9.4 mg/dL (8.5-10.1); Chloride 100 mmol/L (98-107); Creatinine, Serum 1.15 mg/dL (0.55-1.02); EST Glomerular Filtration Rate 48 mL/min (>60); Est Glom Filt Rate - Afr Amer 57 mL/min (>60); Globulin 3.9 g/dL (2.2-4.2); Glucose 135 mg/dL (74-106); Magnesium 2.2 mg/dL (1.6-2.6); Potassium 3.5 mmol/L (3.5-5.1); Protein, Total 7.7 g/dL (6.4-8.2); Sodium Level 137 mmol/L (136-145); T4 Free Direct 1.12 ng/dL (0.76-1.46)
== END | disposition home or self-care (01) ==
PROVIDERS: PCP Internal Medicine; Referring Provider Nurse Practitioner Family; Visit Provider Nurse Practitioner Family
DX: I10 Essential (primary) hypertension (principal); I48.20 Chronic atrial fibrillation, unspecified; E78.00 Pure hypercholesterolemia, unspecified
CPT/HCPCS: 36415; 80053; 83735; 84439; 84443; 85025

== ENCOUNTER 2023-07-29 12:45 | Emergency (ER) | payer MEDICARE, SELFPAY ==
[2021-10-04 11:30] VITALS: BMI 24.3
[2023-07-29] VITALS (10 sets, daily range): BP systolic 116–146; BP diastolic 59–71; PULSE 70–79; RESP 12–22; TEMP 36.3–36.5; O2SAT 94–98; BMI 25.4
--- NOTE | 2023-07-29 13:49 | ED.VIS.DYS ---
HPI History of Present Illness Chief Complaint: Shortness of Breath Informant: patient Onset/Context/Timing Onset: Weeks Context: gradual Timing: Waxes and wanes Quality: Positive for Dyspnea on exertion Worsened by: Exertion Relieved by: Nothing Associated Symptoms rhinorrhea; Negative for cough, post nasal drip, ear pain, fever, sore throat, chills, sweats, clear sputum, white sputum, yellow sputum or green sputum Chest Pain: Positive for None Narrative Narrative: Patient presents with shortness of breath that has been gradually getting worse over the past few weeks. Patient states it waxes and wanes. Patient states it is worse with any activity. Patient states nothing makes it better. Patient admits to some recent nasal congestion and rhinorrhea. Patient states she was having difficulty sleeping because of the nasal congestion. Patient states she also woke up today and noted some burning with urination and urinary frequency. Patient denies any fevers or chills. Patient denies any nausea or vomiting. Patient denies any cough. Patient denies any chest pain. PE Risk Factors: Negative for Cancer, OCP + Smoking + > 35, Prior DVT or PE, Recent immobilization, Recent surgery or Recent travel [facility] Medical History Atherosclerotic heart disease of [place] coronary artery without angina pectoris CAD (coronary artery disease) Congestive heart failure (CHF) Essential hypertension GERD (gastroesophageal reflux disease) Hearing loss, left Hearing loss, right HTN (hypertension) Hyperlipidemia Hyperthyroidism Hypokalemia Hypokalemia care home current use of anticoagulant Myocardial infarct NSTEMI (non-ST elevated myocardial infarction) On home oxygen therapy ALVERTO on CPAP Pacemaker Persistent atrial fibrillation Presence of stent in coronary artery (~08/20/19) Pure hypercholesterolemia Shortness of breath Sleep apnea Home Medications gabapentin 300 mg capsule 600 mg PO BID nerve pain 08/19/19 [History Last Taken 08/26/20] pramipexole 0.25 mg tablet 0.25 mg PO BID PRN PRN SCIATICA 08/19/19 [History Last Taken 08/26/20] trazodone 50 mg tablet 50 mg PO QHS PRN Sleep 12/30/19 [History Last Taken 08/25/20] calcium carbonate 600 mg-vitamin D3 5 mcg (200 unit) tablet 1 tab PO DAILY supplement 05/05/20 [History Last Taken 08/26/20] fexofenadine 60 mg tablet 60 mg PO DAILY allergy 05/05/20 [History Last Taken 08/26/20] flaxseed oil 1,000 mg capsule 1,000 mg PO DAILY supplement 05/05/20 [History Last Taken 08/17/20] tebgqofm-akg-urrxo acid 0.4 mg-lycopene 300 mcg-lutein 250 mcg tablet 1 tab PO DAILY supplement 05/05/20 [History Last Taken 08/26/20] nitroglycerin 0.4 mg sublingual tablet 0.4 mg sublingual Q5M chest pain 05/05/20 [History Last Taken Unknown] pantoprazole 40 mg tablet,delayed release 40 mg PO DAILY GERD 05/05/20 [History Last Taken 08/26/20] sertraline 25 mg tablet 25 mg PO DAILY antidepressant 05/05/20 [History Last Taken 08/26/20] vitamin B complex 1 tab PO DAILY Supplement 05/05/20 [History Last Taken 08/26/20] melatonin 10 mg tablet 10 mg PO QHS PRN PRN Sleep 05/06/20 [History Last Taken 08/25/20] famotidine 20 mg tablet 20 mg PO BID reflux 08/07/20 [History Last Taken 08/26/20] sertraline 50 mg tablet 50 mg PO DAILY MOOD 08/17/20 [History Last Taken 08/26/20] sucralfate 1 gram tablet 1 gm PO BID stomach 08/22/20 [History Last Taken 08/26/20] magnesium oxide 400 mg PO DAILY SUPPLEMENT 08/26/20 [History Last Taken 08/26/20] turmeric root extract 500 mg capsule 500 mg PO DAILY SUPPLEMENT 08/26/20 [History Last Taken 08/26/20] docusate sodium 100 mg capsule (DOK) 100 mg PO BID PRN PRN Constipation #1 cap 08/30/20 [Rx Last Taken Unknown] apixaban 2.5 mg tablet 2.5 mg PO BID blood thinner 08/31/20 [History Last Taken Unknown] aspirin 81 mg tablet,delayed release 81 mg PO DAILY@0800 heart health 08/31/20 [History Last Taken Unknown] potassium chloride 20 mEq tablet,extended release(part/cryst) 20 meq PO BID potassium supplement 08/31/20 [History Last Taken Unknown] atorvastatin 40 mg tablet 40 mg PO DAILY cholesterol #90 tabs 10/05/20 [Rx Last Taken Unknown] isosorbide mononitrate 60 mg tablet,extended release 24 hr 60 mg PO DAILY BP #90 tabs 06/02/21 [Rx Last Taken Unknown] furosemide 40 mg tablet 40 mg PO BID Spoke with Dr. Pickett: please give twice daily dose #180 tabs 07/08/21 [Rx Last Taken Unknown] levothyroxine 75 mcg tablet (Levoxyl) 75 mcg PO DAILY 11/16/22 [History Last Taken Unknown] omega-3 fatty acids-fish oil 300 mg-1,000 mg capsule 1 cap PO BID supplement 11/16/22 [History Last Taken Unknown] losartan 50 mg tablet 50 mg PO DAILY blood pressure 07/13/23 [History Last Taken Unknown] metoprolol succinate 25 mg tablet,extended release 24 hr 25 mg PO DAILY #90 tabs 07/13/23 [Rx Last Taken Unknown] Allergy/AdvReac Type Severity Reaction Status Date / Time enalaprilat [From Vasotec] Allergy Other Verified 07/29/23 12:48 ezetimibe [From Zetia] AdvReac Upset Verified 07/29/23 12:48 Stomach meperidine [From Demerol] AdvReac Nausea Verified 07/29/23 12:48 mirtazapine [From Remeron] AdvReac Other Verified 07/29/23 12:48 zolpidem [From Ambien] AdvReac Other Verified 07/29/23 12:48 Family History Father Heart disease Brother Diabetes Mother COPD (chronic obstructive pulmonary disease) Grandfather Heart disease Surgical History History of appendectomy History of cardioversion (~07/09/20) History of carpal tunnel surgery History of left breast biopsy History of total hysterectomy Hx of atrioventricular node ablation Presence of coronary angioplasty implant and graft (~08/20/19) Presence of permanent cardiac pacemaker S/P PTCA (percutaneous transluminal coronary angioplasty) Social History household members: none Smoking Status: Never smoker alcohol intake: never substance use type: does not use caffeine: Yes Type: coffee Number of servings: 1 ROS ROS ED Constitutional Constitutional ED: Denies chills or fever(s) Eyes Eyes: Denies blurry vision or change in vision ENT ENT ED: Denies rhinorrhea or sore throat Cardiovascular Cardiovascular: Denies chest pain or palpitations Respiratory/Chest Respiratory/Chest: Reports dyspnea; Denies cough Gastrointestinal Gastrointestinal: Denies nausea or vomiting Genitourinary Genitourinary ED: Reports dysuria and urinary frequency; Denies hematuria Musculoskeletal Musculoskeletal: Reports neck pain; Denies back pain Integumentary Denies abscess or rash Neurologic Neurologic: Denies headache(s) or weakness Allergic/Immunologic Allergic/Immunologic ED: Denies mouth swelling or urticaria EXAM Physical Exam Const Vital Signs: 07/29/23 12:45 07/29/23 12:47 07/29/23 13:47 Temperature 97.7 F L 97.7 F L 97.5 F L Temperature Source Temporal Temporal Oral Pulse Rate 70 70 79 Respiratory Rate 20 H 20 H 22 H Respiratory Effort Respiratory Depth Respiratory Pattern Blood Pressure 116/69 116/69 123/59 H Blood Pressure Mean 84 84 80 Pulse Ox 96 96 95 Oxygen Delivery Method Room Air Room Air Room Air 07/29/23 13:51 07/29/23 14:00 07/29/23 16:00 Temperature 97.3 F L Temperature Source Oral Pulse Rate 72 70 Respiratory Rate 20 H 12 Respiratory Effort Short of Breath Respiratory Depth Normal Respiratory Pattern Normal Blood Pressure 133/65 H 139/67 H Blood Pressure Mean 87 91 Pulse Ox 95 95 Oxygen Delivery Method Room Air Room Air Room Air 07/29/23 17:03 Temperature Temperature Source Pulse Rate 70 Respiratory Rate 15 Respiratory Effort Respiratory Depth Respiratory Pattern Normal Blood Pressure Blood Pressure Mean Pulse Ox Oxygen Delivery Method Positive well nourished and well developed General Appearance ED: well developed and NAD HEENT Reports moist mucous membranes Neck supple and no JVD Resp normal respiratory effort and clear to auscultation bilaterally Cardio regular rate and regular rhythm Rhythm: abnormal rhythm GI non-tender and non-distended Palpation: soft Extremity normal to inspection General Extremety ED: Negative for edema or tenderness General Extremity: Negative for edema Neuro oriented x3, CN's II-XII intact bilaterally and no sensory deficits noted Barker Coma Scale: document GCS findings Spontaneous Obeys Commands Oriented 15 Sensorium / Orientation: alert Speech: speech normal Motor Exam: strength 5/5 throughout Psych mental status grossly normal MDM MDM MDM Narrative Medical decision making narrative: Differential diagnosis includes pneumonia, viral illness, bronchitis, pneumothorax, congestive heart failure, cardiac dysrhythmia, cardiac ischemia, and urinary tract infection. EKG will be obtained to assess for cardiac dysrhythmia and cardiac ischemia. Chest x-ray will be obtained to assess for pneumonia and pneumothorax. CBC will be obtained to assess for leukocytosis and anemia. Basic metabolic profile will be obtained to assess for electrolyte abnormality and renal function. High-sensitivity troponin will be obtained to assess for cardiac ischemia. Urinalysis will be obtained to assess for urinary tract infection. Lab Data Attestation: I reviewed the patient's lab results. Lab results narrative: CBC was reviewed and was within normal limits. Basic metabolic profile was reviewed and was within normal limits. High-sensitivity troponin was reviewed and was normal at 13. BNP was reviewed and was slightly elevated at 238.4. Urinalysis was reviewed. There is no evidence of urinary tract infection or hematuria. Labs: Laboratory Results - last 24 hr 07/29/23 07/29/23 14:00 15:07 WBC 8.4 RBC 4.16 L Hgb 12.5 Hct 38.3 MCV 92.1 MCH 30.0 MCHC 32.6 RDW Std Deviation 50.3 H RDW Coeff of Brian 14.7 H Plt Count 240 MPV 9.6 Immature Gran % (Auto) 0.400 Neut % (Auto) 74.4 H Lymph % (Auto) 19.0 [place] % (Auto) 4.4 Eos % (Auto) 1.6 Baso % (Auto) 0.2 Absolute Neuts (auto) 6.2 Absolute Lymphs (auto) 1.59 Nucleated RBC % 0 Sodium 137 Potassium 4.0 Chloride 104 Carbon Dioxide 29.0 Anion Gap 4 L BUN 24 H Creatinine 1.01 Estim Creat Clear Calc 36.26 Est GFR (MDRD) Af Amer 67 Est GFR (MDRD) Non-Af 55 L BUN/Creatinine Ratio 23.8 H Glucose 124 H Calcium 9.1 Troponin I High Sens 13 B-Natriuretic Peptide 238.4 H Urine Color Yellow Urine Clarity Clear Urine pH 7.0 Ur Specific [place] 1.010 Urine Protein Negative Urine Glucose (UA) Normal Urine Ketones Negative Urine Occult Blood Negative Urine Nitrite Negative Urine Bilirubin Negative Urine Urobilinogen Normal Ur Leukocyte Esterase 100 H Urine RBC 0 SEEN Urine WBC 0-5 SEEN Ur Squamous Epith Cells 0 SEEN Urine Bacteria 0 SEEN Urine Mucus 0 SEEN Radiography Diagnostic Testing: Clinical Impression(s) from Imaging Studies Chest X-Ray 07/29/23 14:10 IMPRESSION: No acute thoracic pathology. Electronically Signed: Kobe Reyes MD at 15:05 EDT , PA and lateral chest x-ray was obtained. There are 2 views. On my independent interpretation, lung graves are clear. There is normal cardiac silhouette. Bony thorax is normal. There is no acute process noted. Radiologist also interpreted the x-ray and agrees. EKG Initial EKG: Attestation: I personally reviewed and interpreted this EKG as follows: Interpretation: Paced (70) and LBBB Comments: EKG was obtained. On my independent interpretation, it shows a paced rhythm with a rate of 70. There is a left bundle branch block pattern noted. There are no acute ST or T wave changes noted. Prior EKG tracings: available for review Prior: Unchanged (08/26/2020) Treatment and Re-Evaluation :: Patient was advised of her findings. Patient was able to ambulate here in the emergency department. Initially, her pulse oximeter dropped to 85%. Patient was given a DuoNeb aerosol after this. Patient was able to ambulate after that and maintain oxygen saturation of 95% or greater while ambulating. Nurse also reports that at times the patient had a poor waveform and her oxygen saturation would drop but it would rapidly improve when the waveform improved. Patient had no shortness of breath with ambulation. Patient was instructed to follow-up with her primary care physician in 3 to 5 days. Patient and family understood and were agreeable with the plan. All questions were answered. Discharge Plan Triage Chief Complaint: Shortness of Breath ED Provider: Luis Carlos Foley Dx/Rx/DC Orders Clinical Impression: Dyspnea, Essential hypertension Instructions: ED Dyspnea Prescriptions: No Action trazodone 50 mg tablet 50 mg PO QHS PRN (Reason: Sleep) famotidine 20 mg tablet 20 mg PO BID atorvastatin 40 mg tablet 40 mg PO DAILY Qty: 90 3RF levothyroxine [Levoxyl] 75 mcg tablet 75 mcg PO DAILY pramipexole 0.25 MG tablet 0.25 mg PO BID PRN PRN (Reason: SCIATICA) gabapentin 300 MG capsule 600 mg PO BID fexofenadine 60 MG tablet 60 mg PO DAILY calcium carbonate-vitamin D3 1 EACH tablet 1 tab PO DAILY flaxseed oil 1,000 MG capsule 1,000 mg PO DAILY pantoprazole 40 MG tablet 40 mg PO DAILY nitroglycerin 0.4 MG tablet 0.4 mg SL Q5M sertraline 25 MG tablet 25 mg PO DAILY vitamin B complex 1 EACH tablet 1 tab PO DAILY bmptjcvq-uwb-IN-lycopen-lutein 1 EACH tablet 1 tab PO DAILY melatonin 10 MG tablet 10 mg PO QHS PRN PRN (Reason: Sleep) omega-3 fatty acids-fish oil 300-1,000 mg capsule 1 cap PO BID sertraline 50 MG tablet 50 mg PO DAILY sucralfate 1 GM tablet 1 gm PO BID turmeric root extract 500 mg Capsule 500 mg PO DAILY magnesium oxide 400 mg magnesium Tablet 400 mg PO DAILY docusate sodium [DOK] 100 mg Capsule 100 mg PO BID PRN PRN (Reason: Constipation) Qty: 1 0RF aspirin 81 MG tablet,delayed release (DR/EC) 81 mg PO DAILY@0800 potassium chloride 20 mEq tablet,ER particles/crystals 20 meq PO BID apixaban 2.5 mg tablet 2.5 mg PO BID isosorbide mononitrate 60 mg tablet extended release 24 hr 60 mg PO DAILY Qty: 90 3RF furosemide 40 mg tablet 40 mg PO BID Qty: 180 3RF metoprolol succinate 25 mg tablet extended release 24 hr 25 mg PO DAILY Qty: 90 3RF losartan 50 mg tablet 50 mg PO DAILY Primary Care Provider: Gladys Pickett Referrals: Gladys Pickett MD [Primary Care Provider] - 3-5 Days Disposition Disposition: Home, Self Care
--- NOTE | 2023-07-29 13:56 | EKG12_ITS ---
Test Reason : SOB Blood Pressure : / mmHG Vent. Rate : 070 BPM Atrial Rate : 288 BPM P-R Int : 000 ms QRS Dur : 170 ms QT Int : 452 ms P-R-T Axes : 000 -62 089 degrees QTc Int : 488 ms Ventricular-paced rhythm Abnormal ECG Confirmed by Curly Gaytan ([id number]), assistant film editor NEPTALI ORTIZ ([id number]) on 08/01/2023 10:23:30 AM Referred By: Confirmed By:Curly Gaytan
[2023-07-29 14:10] LABS: Absolute Lymphocyte Count 1.59 X10^3/uL (0.83-4.51); Absolute Neutrophil Count 6.2 X10^3/uL (2.0-7.7); Basophil# 0.02 X10^3/uL; Basophil% 0.2 % (0-1); Eosinophil# 0.13 X10^3/uL; Eosinophils% 1.6 % (0-5); Hematocrit 38.3 % (37-47); Hemoglobin 12.5 g/dL (12.0-15.0); Lymphocyte # 1.59 X10^3/ul (0.83-4.51); Mean Corp Hgb Conc 32.6 g/dL (32-36); Mean Corpuscular Volume 92.1 fL (81-99); Mean Platelet Vol. 9.6 fl (6.2-12.0); Monocyte# 0.37 X10^3/uL; Monocyte% 4.4 % (0-10); NRBC Flagged by Analyzer 0 % (0-5); Neutrophil # 6.21 X10^3/uL (2.7-7.7); Neutrophil % 74.4 % (47-70); Platelet Count 240 K/mm3 (150-450); RBC Distribution Width CV 14.7 % (11.6-14.6); RBC Distribution Width SD 50.3 fl (35.1-43.9); Red Blood Count 4.16 M/mm3 (4.2-5.4); White Blood Count 8.4 K/mm3 (4.4-11.0)
--- NOTE | 2023-07-29 14:10 | RAD_ITS ---
STUDY: X-RAY CHEST REASON FOR EXAM: Female, 87 years old. Dyspnea TECHNIQUE: Frontal and lateral views of the chest COMPARISON: 08/16/2021 FINDINGS: The lungs are clear. There are no pleural effusions. There is no pneumothorax. The heart is normal in size. Again noted is a pacemaker. The visualized osseous structures are within normal limits. RAD/Chest PA and Lateral IMPRESSION: No acute thoracic pathology. Electronically Signed: Kobe Reyes MD at 15:05 EDT ,
[2023-07-29 14:28] LABS: BNP,B-Type NATRIURETIC PEPTIDE 238.4 pg/mL (0-100)
[2023-07-29 14:32] LABS: Anion Gap 4 (5-15); BUN 24 mg/dL (7-18); BUN/Creat Ratio 23.8 RATIO (10-20); Calcium,Total 9.1 mg/dL (8.5-10.1); Chloride 104 mmol/L (98-107); Creatinine, Serum 1.01 mg/dL (0.55-1.02); EST Glomerular Filtration Rate 55 mL/min (>60); Est Glom Filt Rate - Afr Amer 67 mL/min (>60); Estimated Creatinine Clearance 36.26 ml/min; Glucose 124 mg/dL (74-106); Sodium Level 137 mmol/L (136-145); Troponin-I HS 13 pg/mL (3.0-54.0)
[2023-07-29 15:20] LABS: Bacteria 0 SEEN /hpf (None Seen); Mucous, Urine 0 SEEN /hpf (<or=2+); Red Blood Cells-Urine 0 SEEN /hpf (0-5); Squamous Epithelial Cells - UA 0 SEEN /hpf (5-10)
[2023-07-29 15:41] LABS: Glucose, Dipstick Normal (Normal); Ketone-Dipstick Negative (Negative); Leukocyte Esterase-Dipstick 100 /ul (Negative); Nitrite-Dipstick Negative (Negative); Occult Blood-Urine Negative /ul (Negative); Protein-Dipstick Negative (Negative); Urine Bilirubin Dipstick Negative (Negative); Urine Urobilinogen Normal (Normal)
[2023-07-29 15:47] LABS: Color, Urine Yellow (Yellow); Urine Clarity Clear (Clear); White Blood Cells 0-5 SEEN /hpf (0-5)
[2023-07-29] MEDS: Ipratropium/Albuterol Sulfate 3 ML AMPUL.NEB INHALATION (17:02)
--- NOTE | 2023-07-29 17:44 | NURSING ---
PT AMBULATED WITH PULSE OX. 98 ON BEGINNING. PT DROPPED TO 95. RECOVERED TO 98
== END 2023-07-29 19:14 | disposition home or self-care (01) ==
PROVIDERS: Emergency Provider Emergency Medicine; PCP Internal Medicine; Visit Provider Emergency Medicine
DX: R06.00 Dyspnea, unspecified (principal); I11.0 Hypertensive heart disease with heart failure; I50.9 Heart failure, unspecified; I48.19 Other persistent atrial fibrillation; R09.81 Nasal congestion; Z11.52 Encounter for screening for COVID-19; Z99.81 Dependence on supplemental oxygen; Z79.890 Hormone replacement therapy; Z79.899 Other long term (current) drug therapy
CPT/HCPCS: 71046; 80048; 81001; 83880; 84484; 85025; 87631; 93005; 94640; 99284

== ENCOUNTER → 2023-08-29 | Outpatient (CLI) | payer MEDICARE, SELFPAY ==
[2021-10-04 11:30] VITALS: BMI 24.3
--- NOTE | 2023-08-29 13:38 | ECHOCS_ITS ---
Reason For Study: AFib Procedure This was a 2D Doppler, Color Flow transthoracic echocardiogram. The study was technically difficult. Contrast injection was performed. Exam performed in department. Left Ventricle Normal size and thickness. The left ventricular ejection fraction is 35 %. Stage 2 diastolic dysfunction. Right Ventricle Normal right ventricle. ICD or pacer leads identified within the right ventricle. Atria The left atrium is moderately enlarged. The right atrium is mildly enlarged. ICD or pacer leads identified within the right atrium. Mitral Valve Moderate (2+) mitral valve insufficiency. Tricuspid Valve Mild to moderate (1-2+) tricuspid valve insufficiency. Right ventricular systolic pressure estimated to be 52 mmHg. Aortic Valve Aortic sclerosis, no stenosis. Trivial aortic valve insufficiency. Pulmonic Valve Mild (1+) pulmonic valve insufficiency. Great Vessels Normal sized aortic root. Pericardium/Pleural No pericardial effusion. Medication 22 gauge I.V. with prn adaptor inserted into right arm. Diluted definity 2ml given slow IV push to enhance endocardial definition. MMode/2D Measurements & Calculations LVIDd: 4.2 cm IVSd: 0.74 cm Ao root diam: 2.8 cm LVIDs: 3.2 cm LVPWd: 0.70 cm LA dimension: 4.5 cm FS: 23.4 % LAV(MOD-bp): 61.5 ml LVAd ap4: 27.9 cm2 SV(MOD-sp4): 30.7 ml LAV(MOD-bp) Indexed: 38.0 ml/m2 LVLd ap4: 6.9 cm LAV(MOD-sp2): 63.5 ml EDV(MOD-sp4): 94.6 ml LAV(MOD-sp4): 57.0 ml EDV(sp4-el): 95.2 ml LVAs ap4: 22.7 cm2 LVLs ap4: 6.8 cm ESV(MOD-sp4): 63.9 ml ESV(sp4-el): 64.1 ml EF(MOD-sp4): 32.4 % EF(sp4-el): 32.6 % SV(sp4-el): 31.1 ml LA A4 area: 20.3 cm2 RA A4 area: 18.0 cm2 TAPSE: 1.2 cm Time Measurements MV dec time: 0.17 sec Doppler Measurements & Calculations MV E max james: 128.3 cm/sec Lat Peak E' James: 10.1 cm/sec Med Peak E' James: 9.8 cm/sec MV A max james: 21.2 cm/sec E/E' lat: 12.7 E/E' med: 13.1 MV E/A: 6.0 MV V2 max: 148.1 cm/sec MV P1/2t max james: 149.8 cm/sec Ao V2 max: 130.7 cm/sec MV max P.8 mmHg MV P1/2t: 59.0 msec Ao max P.8 mmHg MV V2 mean: 63.8 cm/sec Ao V2 mean: 91.1 cm/sec MV mean P.2 mmHg MV dec slope: 743.2 cm/sec2 Ao mean P.8 mmHg MV V2 VTI: 32.5 cm MVA(P1/2t): 3.7 cm2 Ao V2 VTI: 26.0 cm AV (velocity ratio): 0.72 LV V1 max: 92.3 cm/sec MR max james: 495.7 cm/sec PA V2 max: 96.6 cm/sec LV V1 max P.4 mmHg MR max P.3 mmHg PA V2 mean: 60.1 cm/sec LV V1 mean P.9 mmHg MR mean james: 365.4 cm/sec LV V1 mean: 64.0 cm/sec MR mean P.6 mmHg LV V1 VTI: 18.8 cm MR VTI: 157.3 cm PI dec slope: 216.5 cm/sec2 TR max james: 333.0 cm/sec TR max P.4 mmHg ECHO/Echo Complete W/ Contrast Interpretation Summary The left ventricular ejection fraction is 35 %. Mid to distal septal and apical hypokinesis to akinesis Stage 2 diastolic dysfunction. The left atrium is moderately enlarged. The right atrium is mildly enlarged. Moderate (2+) mitral valve insufficiency. Mild to moderate (1-2+) tricuspid valve insufficiency. Right ventricular systolic pressure estimated to be 52 mmHg. Mild (1+) pulmonic valve insufficiency. Ordering Physician: Fabi Finney Referring Physician: Fabi Finney Performed By: Francisco Kwon RCS
== END | disposition home or self-care (01) ==
PROVIDERS: PCP Internal Medicine; Referring Provider Physician Assistant Medical; Visit Provider Physician Assistant Medical
DX: I48.20 Chronic atrial fibrillation, unspecified (principal)
CPT/HCPCS: 93306; Q9957; A4216; C8929

== ENCOUNTER → 2023-12-14 | Outpatient (CLI) | payer MEDICARE, SELFPAY ==
[2021-10-04 11:30] VITALS: BMI 24.3
[2023-12-14 12:19] LABS: Absolute Lymphocyte Count 1.57 X10^3/uL (0.83-4.51); Absolute Neutrophil Count 3.5 X10^3/uL (2.0-7.7); Basophil# 0.01 X10^3/uL; Basophil% 0.2 % (0-1); Eosinophil# 0.23 X10^3/uL; Hematocrit 37.9 % (37-47); Hemoglobin 11.9 g/dL (12.0-15.0); Lymphocyte # 1.57 X10^3/ul (0.83-4.51); Lymphocyte % 27.4 % (19-41); Mean Corp Hgb Conc 31.4 g/dL (32-36); Mean Corpuscular Hgb 28.9 pg (27.0-32.0); Mean Platelet Vol. 9.8 fl (6.2-12.0); NRBC Flagged by Analyzer 0 % (0-5); Neutrophil % 60.9 % (47-70); Platelet Count 216 K/mm3 (150-450); RBC Distribution Width CV 14.7 % (11.6-14.6); RBC Distribution Width SD 49.5 fl (35.1-43.9); Red Blood Count 4.12 M/mm3 (4.2-5.4); White Blood Count 5.7 K/mm3 (4.4-11.0)
[2023-12-14 12:55] LABS: Anion Gap 7 (5-15); BUN 23 mg/dL (7-18); BUN/Creat Ratio 22.3 RATIO (10-20); Calcium,Total 9.1 mg/dL (8.5-10.1); Chloride 102 mmol/L (98-107); Creatinine, Serum 1.03 mg/dL (0.55-1.02); EST Glomerular Filtration Rate 54 mL/min (>60); Est Glom Filt Rate - Afr Amer 65 mL/min (>60); Glucose 87 mg/dL (74-106); Potassium 3.8 mmol/L (3.5-5.1); Sodium Level 139 mmol/L (136-145)
== END | disposition home or self-care (01) ==
LOC: LAB 11:47
PROVIDERS: PCP Internal Medicine; Referring Provider Physician Assistant Medical; Visit Provider Physician Assistant Medical
DX: I48.91 Unspecified atrial fibrillation (principal); I42.9 Cardiomyopathy, unspecified; I34.0 Nonrheumatic mitral (valve) insufficiency
CPT/HCPCS: 36415; 80048; 85025

== ENCOUNTER 2024-09-08 10:42 | Emergency (ER) | payer MEDICARE, SELFPAY ==
[2021-10-04 11:30] VITALS: BMI 24.3
[2024-09-08 10:43] VITALS: BP 146/106; PULSE 70; RESP 18; TEMP 36.6; O2SAT 97
--- NOTE | 2024-09-08 10:55 | CT_ITS ---
PROCEDURE: BRAIN/HEAD WITHOUT CONTRAST 09/08/2024 REASON FOR EXAM: R SIDED HEADACHE TECHNIQUE: Contiguous axial scans of 3.75 mm slice thicknesses with sagittal and coronal reconstruction images. One or more dose reduction techniques were utilized (e.g., automated exposure control, adjustment of mA and/or kv according to patient size, use of iterative reconstruction technique). RADIATION DOSE SUMMARY: DLP: 846.73 mGycm COMPARISON: 02/27/2023 CT brain FINDINGS: Cerebrum: No intraparenchymal hemorrhage. No abnormal areas of encephalomalacia. No mass effect or midline shift. Central white matter and subcortical diffuse hypoattenuation. Ventricles and cisterns: Appropriate size for patient's age. Age-appropriate senescent change. Extra-axial fluid: Unremarkable. Posterior fossa: Unremarkable cerebellum. No abnormalities involving the brainstem. Paranasal sinuses: Total opacification of the right maxillary sinus. Opacified right ethmoid sinuses and right sphenoid sinus. Vasculature: Unremarkable. Mastoid air cells: unremarkable. Calvarium: Unremarkable. Soft tissues: Unremarkable. . CT/Brain/Head without Contrast IMPRESSION: 1. No acute intracranial findings. 2. Chronic age-related microvascular ischemic changes. 3. Chronic opacification of the right maxillary sinus. Opacification of the r ight ethmoids and right sphenoid sinuses. 4. Age-appropriate senescent change. Reading Location: [facility]
--- NOTE | 2024-09-08 10:56 | EX.ED.VIS.HA ---
HPI History of Present Illness Chief Complaint: Headache Informant: patient Narrative Narrative: 88-year-old with a right sided frontal parietal and retro-orbital headache. She states this started suddenly yesterday. No nausea or vomiting. No photophobia. No vision changes or diplopia. No focal neurologic symptoms. No recent head injuries or falls. She states when she turns her head it seems to make it worse so she is trying not to but she denies any neck pain or stiffness. She denies vertigo. No fevers. States that she did have a headache like this couple years ago. She has chronic sinus congestion but denies having any sinus pressure or pain right now. She states she is currently on amoxicillin because of a dental infection but she denies having a toothache right now. States she is scheduled to see [facility]FS to have a procedure done on the tooth that is infected. She is on a apixaban because of chronic paroxysmal atrial fibrillation. 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 Shortness of breath Pure hypercholesterolemia ALVERTO on CPAP Essential hypertension Atherosclerotic heart disease of [place] coronary artery without angina pectoris Presence of stent in coronary artery (~08/20/19) NSTEMI (non-ST elevated myocardial infarction) Hypokalemia Hyperlipidemia HTN (hypertension) CAD (coronary artery disease) Home Medications ?Medication ?Instructions ?Recorded ?Last Taken ?Type gabapentin 300 mg capsule 600 mg PO BID nerve pain 08/19/19 09/08/24 History pramipexole 0.25 mg tablet 0.25 mg PO BID PRN PRN SCIATICA 08/19/19 08/26/20 History calcium 600 mg (as 1 tab PO DAILY supplement 05/05/20 09/08/24 History carbonate)-vitamin D3 5 mcg (200 unit) tablet fexofenadine 60 mg tablet 60 mg PO DAILY allergy 05/05/20 09/08/24 History flaxseed oil 1,000 mg capsule 1,000 mg PO DAILY supplement 05/05/20 09/08/24 History yopwdifb-eij-clmlb acid 0.4 1 tab PO DAILY supplement 05/05/20 09/08/24 History mg-lycopene 300 mcg-lutein 250 mcg tablet nitroglycerin 0.4 mg sublingual 0.4 mg sublingual Q5M chest pain 05/05/20 Unknown History tablet sertraline 25 mg tablet 25 mg PO DAILY antidepressant 05/05/20 09/08/24 History melatonin 10 mg tablet 10 mg PO QHS PRN PRN Sleep 05/06/20 09/07/24 History famotidine 20 mg tablet 20 mg PO BID reflux 08/07/20 09/08/24 History sertraline 50 mg tablet 50 mg PO DAILY MOOD 08/17/20 09/08/24 History sucralfate 1 gram tablet 1 gm PO BID stomach 08/22/20 09/08/24 History magnesium oxide 400 mg PO DAILY SUPPLEMENT 08/26/20 09/08/24 History turmeric root extract 500 mg 500 mg PO DAILY SUPPLEMENT 08/26/20 09/08/24 History capsule docusate sodium 100 mg capsule 100 mg PO BID PRN PRN Constipation 08/30/20 Unknown Rx (DOK) #1 cap aspirin 81 mg tablet,delayed 81 mg PO DAILY@0800 heart health 08/31/20 09/08/24 History release atorvastatin 40 mg tablet 40 mg PO DAILY cholesterol #90 tabs 10/05/20 09/08/24 Rx isosorbide mononitrate 60 mg 60 mg PO DAILY BP #90 tabs 06/02/21 09/08/24 Rx tablet,extended release 24 hr furosemide 40 mg tablet 40 mg PO BID Spoke with Dr. Pickett: 07/08/21 09/08/24 Rx please give twice daily dose #180 tabs levothyroxine 75 mcg tablet 75 mcg PO MOTUWETHFR 11/16/22 09/06/24 History (Levoxyl) omega-3 fatty acids-fish oil 300 2 cap PO BID supplement 11/16/22 09/08/24 History mg-1,000 mg capsule losartan 50 mg tablet 50 mg PO DAILY blood pressure 07/13/23 09/08/24 History apixaban 2.5 mg tablet 2.5 mg PO BID blood thinner #180 11/09/23 09/08/24 Rx tabs trazodone 50 mg tablet 100 mg PO QHS PRN Sleep 07/19/24 09/07/24 History alendronate 70 mg tablet 70 mg PO QWEEK 09/08/24 Unknown History cefdinir 300 mg capsule 300 mg PO BID 10 days #20 caps 09/08/24 Unknown Rx fluticasone propionate 50 2 spray intranasal DAILY #16 grams 09/08/24 Unknown Rx mcg/actuation nasal spray,suspension levothyroxine 50 mcg tablet 50 mcg PO SUSA 09/08/24 09/08/24 History (Levoxyl) Allergy/AdvReac Type Severity Reaction Status Date / Time enalaprilat (From Vasotec) Allergy Other Verified 09/08/24 10:47 ezetimibe (From Zetia) AdvReac Upset Verified 09/08/24 10:47 Stomach meperidine (From Demerol) AdvReac Nausea Verified 09/08/24 10:47 mirtazapine (From Remeron) AdvReac Other Verified 09/08/24 10:47 zolpidem (From Ambien) AdvReac Other Verified 09/08/24 10:47 Family History Father Heart disease Brother Diabetes Mother COPD (chronic obstructive pulmonary disease) Grandfather Heart disease Surgical History Presence of permanent cardiac pacemaker Hx of atrioventricular node ablation History of cardioversion (~07/09/20) History of total hysterectomy History of carpal tunnel surgery History of left breast biopsy History of appendectomy Presence of coronary angioplasty implant and graft (~08/20/19) S/P PTCA (percutaneous transluminal coronary angioplasty) Social History household members: none Smoking Status: Never smoker alcohol intake: never substance use type: does not use caffeine: Yes Type: coffee Number of servings: 1 ROS ROS ED Constitutional Constitutional ED: Denies chills or fever(s) Eyes Eyes: Denies change in vision, diplopia or photophobia ENT ENT ED: Reports nasal congestion and other Details: Right-sided dental infection without any dental pain currently ; Denies change in voice, ear pain, epistaxis, sinus pressure, sore throat, throat swelling, tinnitus or vertigo Cardiovascular Cardiovascular: Denies chest pain or palpitations Respiratory/Chest Respiratory/Chest: Denies cough or dyspnea Gastrointestinal Gastrointestinal: Denies abdominal pain, diarrhea, nausea or vomiting Genitourinary Genitourinary ED: Denies dysuria or hematuria Musculoskeletal Musculoskeletal: Denies back pain or neck pain Integumentary Denies abscess or rash Neurologic Neurologic: Reports headache(s); Denies paresthesias, seizures, syncope or weakness Psychiatric Psychiatric: Denies suicidal thoughts EXAM Physical Exam Const Vital Signs: 09/08/24 10:43 Temperature 97.8 F Temperature Source Oral Pulse Rate 70 Respiratory Rate 18 Blood Pressure 146/106 H Blood Pressure Mean 119 Pulse Ox 97 Oxygen Delivery Method Room Air Positive well nourished and well developed General Appearance ED: well developed and NAD HEENT Reports moist mucous membranes normocephalic and atraumatic Eyes PERRL and EOMs intact bilaterally Neck no lymphadenopathy, supple and no meningeal signs Neck Narrative: Limited range of motion due to fear of headache pain General: Negative for tenderness Resp normal respiratory effort and clear to auscultation bilaterally Cardio regular rate, regular rhythm and no murmurs Cardio Narrative: Intact distal pulses x 4 Rate: Negative for tachycardic GI non-tender and non-distended Auscultation: normoactive bowel sounds Palpation: soft Back/Spine no CVA tenderness General Back: other FROM Extremity normal to inspection General Extremety ED: Negative for edema, pulses abnormal or tenderness General Extremity: Negative for edema or pulses abnormal Neuro oriented x3, CN's II-XII intact bilaterally and no sensory deficits noted Neuro Narrative: Normal speech and medical receptionist. Normal conversation. NIHSS 0. Sensorium / Orientation: awake and alert Motor Exam: strength 5/5 throughout Psych mental status grossly normal Skin no rashes or lesions noted and no wounds MDM MDM MDM Narrative Medical decision making narrative: Given the patient is on anticoagulation had sudden onset headache, I sent her for a head CT to rule out intracranial hemorrhage. I reviewed the images and the report which I agree with, it is negative for acute intracranial bleeding. However she has opacification of multiple ethmoid, maxillary, sphenoid sinuses mostly on the right side which is probably causing this headache. In the meantime she was given some metoclopramide which did help some. She is able to ambulate to the bathroom with assistance without difficulty. It is unclear if this is bacterial sinusitis, or allergic/inflammatory. She is currently on amoxicillin she has been taking it for about a week for the dental issue. She does not have a dental abscess here anything that he is to be emergently worked on. I am going to change her amoxicillin to cefdinir, and also prescribe her Flonase and advise she follow-up with her doctor. Radiography Diagnostic Testing: Clinical Impression(s) from Imaging Studies Brain CT 09/08/24 10:55 IMPRESSION: 1. No acute intracranial findings. 2. Chronic age-related microvascular ischemic changes. 3. Chronic opacification of the right maxillary sinus. Opacification of the right ethmoids and right sphenoid sinuses. 4. Age-appropriate senescent change. Reading Location: [id number] Discharge Plan Triage Chief Complaint: Headache ED Provider: Eliot Kearney Dx/Rx/DC Orders Clinical Impression: Sinus headache, Sphenoid sinusitis Instructions: ED Sinusitis (Antibiotic Treatment) Prescriptions: New cefdinir 300 mg capsule 300 mg PO BID 10 Days Qty: 20 0RF fluticasone propionate 50 mcg/actuation spray,suspension 2 spray intranasal DAILY Qty: 16 0RF Rx Instructions: administer into each nostril Continued trazodone 50 mg tablet 100 mg PO QHS PRN (Reason: Sleep) famotidine 20 mg tablet 20 mg PO BID atorvastatin 40 mg tablet 40 mg PO DAILY Qty: 90 3RF levothyroxine [Levoxyl] 75 mcg tablet 75 mcg PO MOTUWETHFR pramipexole 0.25 MG tablet 0.25 mg PO BID PRN PRN (Reason: SCIATICA) gabapentin 300 MG capsule 600 mg PO BID fexofenadine 60 MG tablet 60 mg PO DAILY calcium carbonate-vitamin D3 1 EACH tablet 1 tab PO DAILY flaxseed oil 1,000 MG capsule 1,000 mg PO DAILY nitroglycerin 0.4 MG tablet 0.4 mg SL Q5M sertraline 25 MG tablet 25 mg PO DAILY Patient Comments: TAKES 50MG AND 25MG fcaeyyvo-pos-HQ-lycopen-lutein 1 EACH tablet 1 tab PO DAILY melatonin 10 MG tablet 10 mg PO QHS PRN PRN (Reason: Sleep) omega-3 fatty acids-fish oil 300-1,000 mg capsule 2 cap PO BID sertraline 50 MG tablet 50 mg PO DAILY Patient Comments: TAKES 50MG AND 25MG sucralfate 1 GM tablet 1 gm PO BID turmeric root extract 500 mg Capsule 500 mg PO DAILY magnesium oxide 400 mg magnesium Tablet 400 mg PO DAILY docusate sodium [DOK] 100 mg Capsule 100 mg PO BID PRN PRN (Reason: Constipation) Qty: 1 0RF aspirin 81 MG tablet,delayed release (DR/EC) 81 mg PO DAILY@0800 alendronate 70 mg tablet 70 mg PO QWEEK levothyroxine [Levoxyl] 50 mcg tablet 50 mcg PO SUSA isosorbide mononitrate 60 mg tablet extended release 24 hr 60 mg PO DAILY Qty: 90 3RF furosemide 40 mg tablet 40 mg PO BID Qty: 180 3RF losartan 50 mg tablet 50 mg PO DAILY apixaban 2.5 mg tablet 2.5 mg PO BID Qty: 180 3RF Discontinued amoxicillin 500 mg capsule 500 mg PO Q8H Primary Care Provider: Gladys Pickett Referrals: Gladys Pickett MD [Primary Care Provider] - 3-5 Days if not improving Print Language: Ivorian Disposition Disposition: Home, Self Care
[2024-09-08] MEDS: Metoclopramide 10 MG/2 ML Vial 2.5 MG IV (11:11)
[2024-09-08 11:12] VITALS: BMI 24.5
[2024-09-08 13:58] VITALS: BP 149/88; PULSE 70; RESP 16; O2SAT 99
== END 2024-09-08 14:15 | disposition home or self-care (01) ==
PROVIDERS: Emergency Provider Emergency Medicine; PCP Internal Medicine; Visit Provider Emergency Medicine
DX: R51.9 Headache, unspecified (principal); I11.0 Hypertensive heart disease with heart failure; I50.9 Heart failure, unspecified; I48.0 Paroxysmal atrial fibrillation; J32.3 Chronic sphenoidal sinusitis; E78.00 Pure hypercholesterolemia, unspecified; I25.10 Atherosclerotic heart disease of native coronary artery without angina pectoris; G47.33 Obstructive sleep apnea (adult) (pediatric); I25.2 Old myocardial infarction; Z79.82 Long term (current) use of aspirin; Z79.01 Long term (current) use of anticoagulants; Z79.899 Other long term (current) drug therapy; Z95.0 Presence of cardiac pacemaker; Z95.5 Presence of coronary angioplasty implant and graft
CPT/HCPCS: 70450; 96374; 99283; A4216